=== PATIENT | female | born 1965 | race African-American/Black ===

== ENCOUNTER 2016-12-02 05:38 | Emergency (ER) | payer MEDICAID ==
[~2016-12-02 05:38] MED LIST: ADVA250A INH; ALBUAER3 INH; AMLO10TA2 PO; ARIP1TAB13 PO; ASPI-110 PO; BACTOIN EACH NARE; BUSP5TAB PO; CEPH-460 PO; CLIN1CAP6 PO; FLUT50SP EACH NARE; HYDR-3533 PO; HYDR-3535 PO; HYDR100C PO; HYDR50TA15 PO; IBUP-232 PO; LEVEMIR SQ; LOSA25TA PO; LOVA20TA PO; LYRI100C PO; METO100T PO; MONT10TA4 PO; NORT50CA PO; NOVOLOGP2 SQ; OMEP40CA2 PO; ONDA4TAB7 SL; ONETKIT9; PARO30TA2 PO; SENN8.6T25 PO; TIZA4TAB PO; VARE1 PO; WHEEMIS3
[2016-12-02 05:55] VITALS: PULSE 88; RESP 16; O2SAT 98
[2016-12-02] MEDS ORDERED: KETOROLAC TROMETHAMINE 30 MG/ML (IVP) VIAL IV PUSH ONE (06:00)
[2016-12-02] MEDS ORDERED: SODIUM CHLORIDE 0.9% FLUSH 5 ML FLUSH IVF PRN (06:00)
[2016-12-02] MEDS ORDERED: ASPIRIN 81 MG CHEW TAB PO ONE (06:00)
[2016-12-02] MEDS: RESP: ALBUTEROL 2.5 MG/IPRATROPIUM 0.5 MG NEB (SCH) INH (06:06)
[2016-12-02 06:08] LABS: AUTOMATED NEUTROPHIL # 4.6 TH/MM3 (1.8-7.7); BASOPHIL % 0.5 % (0.0-2.0); EOSINOPHIL # 0.1 TH/MM3 (0-0.4); EOSINOPHIL % 1.4 % (0.0-4.0); HEMATOCRIT 35.7 % (35.0-46.0); HEMO FLAGS DIFF FINAL; LYMPH % 37.8 % (9.0-44.0); LYMPHOCYTE # 3.2 TH/MM3 (1.0-4.8); MEAN CELL VOLUME 81.4 FL (80.0-100.0); MEAN CORPUSCULAR HEMOGLOBIN 27.9 PG (27.0-34.0); MEAN CORPUSCULAR HGB CONC 34.3 % (32.0-36.0); MONO % 5.9 % (0.0-8.0); NEUT % 54.4 % (16.0-70.0); PLATELET COUNT 279 TH/MM3 (150-450); RED BLOOD COUNT 4.39 MIL/MM3 (4.00-5.30); RED CELL DISTRIBUTION WIDTH 13.8 % (11.6-17.2); WHITE BLOOD COUNT 8.5 TH/MM3 (4.0-11.0)
[2016-12-02] MEDS ORDERED: ABIL15TA2 PO (06:15)
[2016-12-02] MEDS ORDERED: VIST50CA PO (06:15)
[2016-12-02] MEDS ORDERED: RANI150T PO (06:15)
--- NOTE | 2016-12-02 06:20 | PD ---
HPI Chief Complaint: Chest Pain Time Seen by Provider: 05:52 Travel History International Travel<30 days: No Contact w/Intl Traveler<30days: No Traveled to known affect area: No History of Present Illness HPI 50-year-old female with history of COPD/asthma, HTN, HLD, DM here with complaint of chest pain. Patient states that she's had approximately one week of cough, cold, chest congestion. Cough is primarily nonproductive. No fevers or chills. She complains of a sharp pain across the lower aspect of her rib cage bilaterally. This is made worse with cough, movement. Patient notes a history of previous ND and DVT, no history of previous PE. No recent travel, sick contacts. No pain or swelling in the legs. Patient has had several cardiac catheterizations per her report none of which have warranted PCI per her report. Patient has been using her albuterol inhaler with some improvement of her cough and chest congestion. PFSH Past Medical History Hx Anticoagulant Therapy: Yes Arthritis: Yes Asthma: Yes Autoimmune Disease: No Blood Disorders: No Anxiety: No Depression: Yes Heart Rhythm Problems: No Cancer: Yes (UTERINE) Cardiac Catheterization: Yes (X6) Cardiovascular Problems: Yes (CHF) High Cholesterol: Yes Chemotherapy: No Chest Pain: Yes Congestive Heart Failure: Yes COPD: Yes Cerebrovascular Accident: Yes (3 TIA) Coronary Artery Disease: Yes Diabetes: Yes Patient Takes Glucophage: No Diminished Hearing: No Endocrine: Yes Gastrointestinal Disorders: Yes (GASTRO PARESIS) GERD: Yes Genitourinary: No Headaches: No Hypertension: Yes Immune Disorder: No Implanted Vascular Access Dvce: No Musculoskeletal: Yes (chronic knee pain, chronic back pain) Neurologic: Yes (NEUROPATHY, CVA ) Psychiatric: Yes Reproductive: No Immunizations Current: Yes Migraines: No Myocardial Infarction: Yes Radiation Therapy: No Seizures: Yes (2000,2001,2002) Sickle Cell Disease: Yes (SICKLE CELL TRAIT) Sleep Apnea: Yes Thyroid Disease: No Ulcer: Yes (YEARS AGO) ?: Not Menopausal: Yes Past Surgical History Abdominal Surgery: Yes (GALL BLADDER) Cardiac Surgery: Yes Cholecystectomy: Yes Coronary Stent: Yes (X2) Ear Surgery: No Endocrine Surgery: No Eye Surgery: No Genitourinary Surgery: No Gynecologic Surgery: Yes Hysterectomy: Yes Joint Replacement: Yes (left knee UPCOMING) Neurologic Surgery: Yes (NECK FUSED) Oral Surgery: No Thoracic Surgery: No Other Surgery: Yes (LEFT AXILLARY TUMOR REMOVED) Social History Alcohol Use: No Tobacco Use: Yes (1/2 PPD) Substance Use: No Allergies-Medications (Allergen,Severity, Reaction): Coded Allergies: Cipro (Verified Allergy, Severe, SWELLING SOB, 12/02/16) Erythromycin (Verified Allergy, Severe, SWELLING SOB, 12/02/16) Tramadol (Verified Allergy, Severe, UNKNOWN, 12/02/16) Vancomycin (Verified Allergy, Severe, SWELLING AND SOB, 12/02/16) *MDRO Multi-Drug Resistant Organism (Verified Adverse Reaction, Unknown, ) 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 Onetouch Ultra 2 Glucose System (Device) 1 Kit Kit 1 Kit .ROUTE DIRECTED Wheelchair (Device) 1 Mis Mis 1 Ea .ROUTE DIRECTED Novolog Inj (Insulin Aspart) 1,000 Unit/10 Ml Vial 0-25 Units SQ ACHS Max dose at bedtime:( )units; sugars less than 70,(0) units; sugars 150-199,(5) units; sugars 200-249,(10) units; sugars 250-299,(15) units; sugars 300-349,(20)units; sugars greater than 349,(25)units Lyrica (Pregabalin) 100 Mg Cap 100 Mg PO TID Proair Hfa 8.5 GM Inh (Albuterol Sulfate) 90 Mcg/Act Aer 2 Puff INH Q4-6H PRN 108 mcg/actuation Paroxetine (Paroxetine HCl) 30 Mg Tab 30 Mg PO DAILY Ondansetron Odt 4 Mg Tab 4 Mg SL Q6HR PRN Fluticasone Nasal [place] 50 Mcg/Act Naspr 50 Mcg EACH NARE DAILY 50 mcg/spray Metoprolol Tartrate 100 Mg Tab 100 Mg PO BID Amlodipine (Amlodipine Besylate) 10 Mg Tab 10 Mg PO DAILY Lovastatin 20 Mg Tab 20 Mg PO HS Buspirone (Buspirone HCl) 5 Mg Tab 5 Mg PO DAILY Aspirin 81 (Aspirin) 81 Mg Tabdr 81 Mg PO EVERY OTHER DAY Hydralazine (Hydralazine HCl) 50 Mg Tab 50 Mg PO BID Take with a meal Advair Diskus Inh (Fluticasone-Salmeterol Inh) 250-50 Mcg/Blist Aer 1 Puff INH BID Rinse mouth after use. Reported Abilify (Aripiprazole) 15 Mg Tab 15 Mg PO DAILY Ranitidine (Ranitidine HCl) 150 Mg Tab 150 Mg PO BID Vistaril (Hydroxyzine Pamoate) 50 Mg Cap 50 Mg PO BID Lortab (Hydrocodone-Acetaminophen) 10-325 Mg Tab 1 Tab PO Q4-6H PRN Tizanidine (Tizanidine HCl) 4 Mg Tab 4 Mg PO QID Review of Systems Except as stated in HPI: all other systems reviewed are Neg Physical Exam Narrative GENERAL: Well-appearing female in no acute distress SKIN: Warm and dry. HEAD: Normocephalic. EYES: No scleral icterus. No injection or drainage. ENT: Mucous membranes pink and moist. NECK: Supple CARDIOVASCULAR: Regular rate and rhythm. No murmur appreciated. Reproducible tenderness to palpation of the lower chest wall bilaterally. RESPIRATORY: No accessory muscle use. Expiratory wheezing. GASTROINTESTINAL: Abdomen soft, non-tender, nondistended. MUSCULOSKELETAL: No obvious deformities. No edema. NEUROLOGICAL: Awake and alert. Normal speech. PSYCHIATRIC: Appropriate mood and affect; insight and judgment normal. Data Data Last Documented VS Vital Signs Date Time Temp Pulse Resp B/P Pulse Ox O2 Delivery O2 Flow Rate FiO2 12/02/16 05:55 88 16 98 Room Air Orders Electrocardiogram (12/02/16 05:52) Basic Metabolic Panel (Bmp) (12/02/16 05:52) Complete Blood Count With Diff (12/02/16 05:52) Troponin I (12/02/16 05:52) Chest, Single Ap (12/02/16 05:52) Ecg Monitoring (12/02/16 05:52) Iv Access Insert/Monitor (12/02/16 05:52) Oximetry (12/02/16 05:52) Aspirin Chew (Aspirin Chew) (12/02/16 06:00) Sodium Chloride 0.9% Flush (Ns Flush) (12/02/16 06:00) Albuterol-Ipratropium Neb (Duoneb Neb) (12/02/16 06:00) Ketorolac Inj (Toradol Inj) (12/02/16 06:00) Potassium Chloride (Kcl) (12/02/16 06:45) Labs Laboratory Tests Test 12/02/16 06:00 White Blood Count 8.5 TH/MM3 Red Blood Count 4.39 MIL/MM3 Hemoglobin 12.2 GM/DL Hematocrit 35.7 % Mean Corpuscular Volume 81.4 FL Mean Corpuscular Hemoglobin 27.9 PG Mean Corpuscular Hemoglobin 34.3 % Concent Red Cell Distribution Width 13.8 % Platelet Count 279 TH/MM3 Mean Platelet Volume 8.3 FL Neutrophils (%) (Auto) 54.4 % Lymphocytes (%) (Auto) 37.8 % Monocytes (%) (Auto) 5.9 % Eosinophils (%) (Auto) 1.4 % Basophils (%) (Auto) 0.5 % Neutrophils # (Auto) 4.6 TH/MM3 Lymphocytes # (Auto) 3.2 TH/MM3 Monocytes # (Auto) 0.5 TH/MM3 Eosinophils # (Auto) 0.1 TH/MM3 Basophils # (Auto) 0.0 TH/MM3 CBC Comment DIFF FINAL Differential Comment Sodium Level 140 MEQ/L Potassium Level 3.0 MEQ/L Chloride Level 104 MEQ/L Carbon Dioxide Level 29.4 MEQ/L Anion Gap 7 MEQ/L Blood Urea Nitrogen 10 MG/DL Creatinine 0.78 MG/DL Estimat Glomerular Filtration 94 ML/MIN Rate Random Glucose 156 MG/DL Calcium Level 8.5 MG/DL Troponin I LESS THAN 0.02 NG/ML MDM Medical Decision Making Medical Screen Exam Complete: Yes Emergency Medical Condition: Yes Medical Record Reviewed: Yes Differential Diagnosis 50-year-old female with history of COPD/asthma, HTN, HLD, DM, CAD with bilateral lower chest pain made worse with movement, deep inspiration with one week of cough, chest congestion, wheezing. Differential includes asthma exacerbation, COPD exacerbation, pneumonia, musculoskeletal, atypical chest pain , ACS, less likely PE. Narrative Course Patient placed on monitor, IV established and blood obtained. A twelve-lead EKG shows sinus rhythm without notable ST abnormalities, normal intervals. Patient given aspirin, Toradol, DuoNeb. Portable chest x-ray obtained that by my read shows no acute abnormalities. CBC, BMP, troponin notable for potassium 3.0. Patient was replaced with 60 mEq orally. Her symptoms most consistent with mild COPD/asthma exacerbation with concurrent musculoskeletal chest wall pain. Symptoms are atypical for ACS and I do not think she warrants serial enzymes, provocative testing. Patient felt improved after the above therapy and will be discharged home. Diagnosis Primary Impression: Musculoskeletal chest pain Additional Impressions: COPD exacerbation Hypokalemia Referrals: Primary Care Physician as needed Additional Instructions: Steroids as prescribed. Tylenol, ibuprofen as needed for pain. Follow-up with primary care provider if symptoms persist and return the ER for the warning signs discussed. Med/Other Pt SpecificInfo: Prescription(s) given Scripts Prednisone 50 Mg Tab50 Mg PO DAILY 5 Days Ref 0 Prov:Connie Sutton MD 12/02/16 Disposition: DISCHARGE HOME Condition: Stable Connie Sutton MD Dec 02, 2016 06:20
--- NOTE | 2016-12-02 06:30 | RADRPT ---
EXAM DATE/TIME: 12/02/2016 06:14 [facility] COMPARISON: CHEST SINGLE AP, September 05, 2016, 13:51. INDICATIONS : Congestion, wheezing, and shortness of breath x4 days. MEDICAL HISTORY : Asthma SURGICAL HISTORY : None. ENCOUNTER: Initial ACUITY: 4 - 6 days PAIN SCORE: 0/10 LOCATION: Bilateral chest FINDINGS: Portable AP view of the chest demonstrates a normal-sized cardiac silhouette. No effusion, consolidat ion, or pneumothorax is visualized. The bones and soft tissues demonstrate no acute abnormality. Cerv ical spine hardware is present. CONCLUSION: No acute cardiopulmonary abnormality is identified. Mukund Nichole MD on December 02, 2016 at 6:28 Board Certified Radiologist. This report was verified electronically.
[2016-12-02 06:36] LABS: ANION GAP 7 MEQ/L (5-15); BICARBONATE 29.4 MEQ/L (21.0-32.0); BLOOD UREA NITROGEN 10 MG/DL (7-18); CHLORIDE 104 MEQ/L (98-107); GLOMERULAR FILTRATION RATE 94 ML/MIN (>89); SODIUM (NA) 140 MEQ/L (136-145)
[2016-12-02] MEDS ORDERED: PRED50 PO (06:44)
[2016-12-02] MEDS ORDERED: POTASSIUM CHLORIDE 20 MEQ CONTROLLED RELEASE TAB PO ONE (06:45)
--- NOTE | 2016-12-02 12:51 | EKG ---
Date Performed: 12/02/2016 Time Performed: 05:48:50 PTAGE: 50 years EKG: Sinus rhythm POSSIBLE LEFT ATRIAL ENLARGEMENT POSSIBLE LEFT VENTRICULAR HYPERTROPHY NONSPECIFIC T-WAVE ABNORMALIT Y Since previous tracing, no significant change noted ABNORMAL ECG PREVIOUS TRACING : 09/05/2016 12.24 DOCTOR: [place] Interpretating Date/Time 12/02/2016 12:50:22
[2016-12-05] MEDS ORDERED: LOVA20TA PO (14:06)
[2016-12-17] MEDS ORDERED: METO100T PO (02:35)
[2016-12-25] MEDS ORDERED: HYDR50CA PO (12:47)
[2017-01-15] MEDS ORDERED: ASPI-110 PO (09:33)
[2017-01-15] MEDS ORDERED: ONETTES4 (09:36)
[2017-01-15] MEDS ORDERED: ONETMIS2 (09:36)
[2017-02-08] MEDS ORDERED: PARO30TA2 PO (10:34)
[2017-02-12] MEDS ORDERED: LEVEMIR SQ (09:20)
[2017-02-19] MEDS ORDERED: BUSP5TAB PO (16:24)
[2017-02-19] MEDS ORDERED: AMLO10TA2 PO (16:24)
[2017-02-19] MEDS ORDERED: ZOFR4TAB PO (16:24)
[2017-02-19] MEDS ORDERED: LEVEMIR SQ (16:24)
[2017-02-19] MEDS ORDERED: LOSA25TA PO (16:24)
[2017-02-19] MEDS ORDERED: TIOT1AER2 INH (16:24)
[2017-02-19] MEDS ORDERED: PARO30TA2 PO (16:24)
[2017-02-19] MEDS ORDERED: HYDR50TA15 PO (16:24)
[2017-02-19] MEDS ORDERED: HYDR-3583 PO (16:24)
[2017-02-25] MEDS ORDERED: INSU-170 (14:43)
[2017-02-25] MEDS ORDERED: IPRA17I INH (15:21)
[2017-03-05] MEDS ORDERED: FLUT50SP EACH NARE (13:17)
[2017-03-07] MEDS ORDERED: ALBU0.08 NEB (10:08)
[2017-03-21] MEDS ORDERED: LOSA50TA PO (14:25)
[2017-03-21] MEDS ORDERED: LEVEMIR SQ (14:25)
[2017-03-21] MEDS ORDERED: XARE20TA PO (14:25)
[2017-03-21] MEDS ORDERED: AMBI10TA PO (14:28)
[2017-03-29] MEDS ORDERED: ONDA1TAB17 PO (11:39)
[2017-03-29] MEDS ORDERED: PERI8.6T PO (11:39)
[2017-04-03] MEDS ORDERED: ALBUAER3 INH (13:31)
[2017-04-05] MEDS ORDERED: OMEP10CA PO (14:17)
[2017-04-05] MEDS ORDERED: LEVEMIR SQ (14:17)
[2017-04-05] MEDS ORDERED: AMBI10TA PO (14:17)
[2017-04-05] MEDS ORDERED: VARE1PAK3 PO (14:17)
[2017-04-05] MEDS ORDERED: NICO21DI2 T-DERMAL (14:17)
[2017-04-15] MEDS ORDERED: LEVEMIR SQ (16:26)
[2017-04-15] MEDS ORDERED: PANT40TA3 PO (16:30)
[2017-04-15] MEDS ORDERED: TRIA.1%T TOPICAL (16:44)
[2017-04-23] MEDS ORDERED: ADVA250A INH (21:16)
[2017-04-23] MEDS ORDERED: ALBU0.08 NEB (21:16)
[2017-04-24] MEDS ORDERED: ZOLP5TAB3 PO (21:02)
[2017-04-24] MEDS ORDERED: BLOOD GLUCOSE T1 TES (21:37)
[2017-04-24] MEDS ORDERED: BD L33MI ×2 (21:37→21:48)
[2017-04-24] MEDS ORDERED: LIDO2GEL11 TOPICAL (21:37)
[2017-04-24] MEDS ORDERED: OMEP20TA PO (21:37)
[2017-04-24] MEDS ORDERED: METO100T PO (21:37)
[2017-04-24] MEDS ORDERED: NOVOLOGP2 SQ (21:37)
[2017-04-24] MEDS ORDERED: BD I1MIS10 (21:37)
== END 2016-12-02 07:46 | disposition home or self-care (01) ==
LOC: NEPE 05:38
DX: R07.89 Other chest pain (principal); J44.1 Chronic obstructive pulmonary disease with (acute) exacerbation; J45.901 Unspecified asthma with (acute) exacerbation; E87.6 Hypokalemia; M19.90 Unspecified osteoarthritis, unspecified site; F32.9 Major depressive disorder, single episode, unspecified; I50.9 Heart failure, unspecified; E11.9 Type 2 diabetes mellitus without complications; I10 Essential (primary) hypertension; D57.3 Sickle-cell trait; F17.210 Nicotine dependence, cigarettes, uncomplicated; Z79.4 Long term (current) use of insulin; Z79.01 Long term (current) use of anticoagulants; Z86.73 Personal history of transient ischemic attack (TIA), and cerebral infarction without residual deficits
CPT/HCPCS: 71010; 80048; 84484; 85025; 93005; 94640; 94664; 96374; 99284; J1885

== ENCOUNTER 2017-01-22 09:00 | Emergency (ER) | payer MEDICAID ==
[~2017-01-22] VITALS: Ht 165.1 cm; Wt 85.0 kg
[~2017-01-22 09:00] MED LIST changes: +ABIL15TA2 PO; -ARIP1TAB13 PO; -BACTOIN EACH NARE; -CEPH-460 PO; -CLIN1CAP6 PO; -HYDR-3533 PO; -HYDR100C PO; +HYDR50CA PO; -IBUP-232 PO; -LOSA25TA PO; -MONT10TA4 PO; -NORT50CA PO; -OMEP40CA2 PO; +ONETMIS2; +ONETTES4; +PRED50 PO; +RANI150T PO; -SENN8.6T25 PO; -VARE1 PO
[2017-01-22 09:03] VITALS: BP 205/92; PULSE 94; RESP 16; TEMP 98.1; O2SAT 96
[2017-01-22 09:42] VITALS: BP 191/88; PULSE 87; RESP 16; O2SAT 93
[2017-01-22] MEDS ORDERED: HYDR50CA PO (09:59)
--- NOTE | 2017-01-22 10:09 | PD ---
HPI Chief Complaint: Respiratory Symptoms Time Seen by Provider: 09:58 Travel History International Travel<30 days: No Contact w/Intl Traveler<30days: No Traveled to known affect area: No History of Present Illness HPI Patient is a 51-year-old female with history of COPD/asthma, HTN, HLD, DM, CAD with previous PCI who last stress test was negative stress test approximately 6 months ago here with complaint of shortness of breath. Patient states that over the course the last 2 weeks she has had shortness of breath, primarily with exertion. Describes this as wheezing, tight within the chest. She was seen here and treated with prednisone for asthma/COPD exacerbation and states that her symptoms got worse for the 5 day she was on steroids, but her symptoms came back when she stopped the steroids. She has been using her home Advair, albuterol with some improvement of her symptoms. She has not had any chest pain. She has not had any swelling in the ankles. PFSH Past Medical History Hx Anticoagulant Therapy: Yes Arthritis: Yes Asthma: Yes Autoimmune Disease: No Blood Disorders: No Anxiety: No Depression: Yes Heart Rhythm Problems: No Cancer: Yes (UTERINE) Cardiac Catheterization: Yes (X6) Cardiovascular Problems: Yes High Cholesterol: Yes Chemotherapy: No Chest Pain: Yes Congestive Heart Failure: Yes COPD: Yes Cerebrovascular Accident: Yes Coronary Artery Disease: Yes Diabetes: Yes Patient Takes Glucophage: No Diminished Hearing: No Endocrine: Yes Gastrointestinal Disorders: Yes (GASTRO PARESIS) GERD: Yes Genitourinary: No Headaches: No Hypertension: Yes Immune Disorder: No Implanted Vascular Access Dvce: No Musculoskeletal: Yes (chronic knee pain, chronic back pain) Neurologic: Yes (NEUROPATHY, CVA ) Psychiatric: Yes Reproductive: No Respiratory: Yes (copd) Immunizations Current: Yes Migraines: No Myocardial Infarction: Yes Radiation Therapy: No Seizures: Yes (2000,2001,2002) Sickle Cell Disease: Yes (SICKLE CELL TRAIT) Sleep Apnea: Yes Thyroid Disease: No Ulcer: Yes (YEARS AGO) Influenza Vaccination: Yes ?: Not Menopausal: Yes Past Surgical History Abdominal Surgery: Yes (GALL BLADDER) Cardiac Surgery: Yes Cholecystectomy: Yes Coronary Stent: Yes (X2) Ear Surgery: No Endocrine Surgery: No Eye Surgery: No Genitourinary Surgery: No Gynecologic Surgery: Yes Hysterectomy: Yes Joint Replacement: Yes (left knee UPCOMING) Neurologic Surgery: Yes (NECK FUSED) Oral Surgery: No Thoracic Surgery: No Other Surgery: Yes (LEFT AXILLARY TUMOR REMOVED) Social History Alcohol Use: No Tobacco Use: Yes (1 PPD) Substance Use: No Allergies-Medications (Allergen,Severity, Reaction): Coded Allergies: Cipro (Verified Allergy, Severe, SWELLING SOB, 01/22/17) Erythromycin (Verified Allergy, Severe, SWELLING SOB, 01/22/17) Tramadol (Verified Allergy, Severe, UNKNOWN, 01/22/17) Vancomycin (Verified Allergy, Severe, SWELLING AND SOB, 01/22/17) *MDRO Multi-Drug Resistant Organism (Verified Adverse Reaction, Unknown, ) 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 Onetouch Ultra 2 Glucose System (Device) 1 Kit Kit 1 Kit .ROUTE DIRECTED Wheelchair (Device) 1 Mis Mis 1 Ea .ROUTE DIRECTED Novolog Inj (Insulin Aspart) 1,000 Unit/10 Ml Vial 0-25 Units SQ ACHS Max dose at bedtime:( )units; sugars less than 70,(0) units; sugars 150-199,(5) units; sugars 200-249,(10) units; sugars 250-299,(15) units; sugars 300-349,(20)units; sugars greater than 349,(25)units Lyrica (Pregabalin) 100 Mg Cap 100 Mg PO TID Proair Hfa 8.5 GM Inh (Albuterol Sulfate) 90 Mcg/Act Aer 2 Puff INH Q4-6H PRN 108 mcg/actuation Paroxetine (Paroxetine HCl) 30 Mg Tab 30 Mg PO DAILY Ondansetron Odt 4 Mg Tab 4 Mg SL Q6HR PRN Fluticasone Nasal [place] 50 Mcg/Act Naspr 50 Mcg EACH NARE DAILY 50 mcg/spray Amlodipine (Amlodipine Besylate) 10 Mg Tab 10 Mg PO DAILY Buspirone (Buspirone HCl) 5 Mg Tab 5 Mg PO DAILY Hydralazine (Hydralazine HCl) 50 Mg Tab 50 Mg PO BID Take with a meal Advair Diskus Inh (Fluticasone-Salmeterol Inh) 250-50 Mcg/Blist Aer 1 Puff INH BID Rinse mouth after use. Reported Hydroxyzine Pamoate 50 Mg Cap 50 Mg PO BID PRN Abilify (Aripiprazole) 15 Mg Tab 15 Mg PO DAILY Ranitidine (Ranitidine HCl) 150 Mg Tab 150 Mg PO BID Lortab (Hydrocodone-Acetaminophen) 10-325 Mg Tab 1 Tab PO Q4-6H PRN Tizanidine (Tizanidine HCl) 4 Mg Tab 4 Mg PO QID Review of Systems Except as stated in HPI: all other systems reviewed are Neg Physical Exam Narrative GENERAL: female in no acute distress SKIN: Focused skin assessment warm/dry. HEAD: Normocephalic. EYES: No scleral icterus. No injection or drainage. ENT: Mucous membranes pink and moist. NECK: Supple CARDIOVASCULAR: Regular rate and rhythm. No murmur appreciated. No reproducible tenderness to palpation of chest wall RESPIRATORY: No accessory muscle use. Minimal and expiratory wheezing GASTROINTESTINAL: Abdomen soft, non-tender, nondistended. MUSCULOSKELETAL: No obvious deformities. No edema. NEUROLOGICAL: Awake and alert. Normal speech. PSYCHIATRIC: Appropriate mood and affect; insight and judgment normal. Data Data Last Documented VS Vital Signs Date Time Temp Pulse Resp B/P Pulse Ox O2 Delivery O2 Flow Rate FiO2 01/22/17 09:42 87 16 191/88 93 Room Air 01/22/17 09:03 98.1 Orders Electrocardiogram (01/22/17 ) Complete Blood Count With Diff (01/22/17 10:02) Basic Metabolic Panel (Bmp) (01/22/17 10:02) B-Type Natriuretic Peptide (01/22/17 10:02) Troponin I (01/22/17 10:02) Iv Access Insert/Monitor (01/22/17 10:02) Oximetry (01/22/17 10:02) Chest, Single Ap (01/22/17 10:02) Sodium Chloride 0.9% Flush (Ns Flush) (01/22/17 10:15) Albuterol-Ipratropium Neb (Duoneb Neb) (01/22/17 10:15) Labs Laboratory Tests Test 01/22/17 10:18 White Blood Count 8.3 TH/MM3 Red Blood Count 4.46 MIL/MM3 Hemoglobin 11.9 GM/DL Hematocrit 36.9 % Mean Corpuscular Volume 82.9 FL Mean Corpuscular Hemoglobin 26.7 PG Mean Corpuscular Hemoglobin 32.2 % Concent Red Cell Distribution Width 14.2 % Platelet Count 282 TH/MM3 Mean Platelet Volume 8.3 FL Neutrophils (%) (Auto) 53.5 % Lymphocytes (%) (Auto) 40.4 % Monocytes (%) (Auto) 3.7 % Eosinophils (%) (Auto) 1.9 % Basophils (%) (Auto) 0.5 % Neutrophils # (Auto) 4.4 TH/MM3 Lymphocytes # (Auto) 3.3 TH/MM3 Monocytes # (Auto) 0.3 TH/MM3 Eosinophils # (Auto) 0.2 TH/MM3 Basophils # (Auto) 0.0 TH/MM3 CBC Comment DIFF FINAL Differential Comment Sodium Level 139 MEQ/L Potassium Level 4.0 MEQ/L Chloride Level 105 MEQ/L Carbon Dioxide Level 27.5 MEQ/L Anion Gap 7 MEQ/L Blood Urea Nitrogen 15 MG/DL Creatinine 0.82 MG/DL Estimat Glomerular Filtration 88 ML/MIN Rate Random Glucose 270 MG/DL Calcium Level 8.9 MG/DL Troponin I LESS THAN 0.02 NG/ML B-Type Natriuretic Peptide 221 PG/ML MDM Medical Decision Making Medical Screen Exam Complete: Yes Emergency Medical Condition: Yes Medical Record Reviewed: Yes Differential Diagnosis 51-year-old female with history of COPD/asthma, HTN, HLD, DM, CAD with previous PCI who last stress test was negative stress test approximately 6 months ago here with complaint of shortness of breath. Differential includes COPD/asthma exacerbation, pneumonia, new onset heart failure, ACS, arrhythmia, symptomatic anemia. Narrative Course Patient placed on monitor, IV established and blood obtained. A twelve-lead EKG shows sinus rhythm without notable ST abnormalities, normal intervals. Patient was given DuoNeb 2. Portable chest x-ray obtained that by my read shows no acute abnormalities. CBC, BMP, BNP, troponin obtained and unremarkable. Patient felt improved after nebulizer therapy. My suspicion is that this is more pulmonary, and less likely cardiac. Additionally she's had a negative stress approximately 6 months ago. Will be discharged home with outpatient primary follow-up. Diagnosis Primary Impression: Shortness of breath Additional Impressions: Asthma Qualified Code: J45.909 - Uncomplicated asthma, unspecified asthma severity COPD (chronic obstructive pulmonary disease) Qualified Code: J44.9 - Chronic obstructive pulmonary disease, unspecified COPD type Referrals: Primary Care Physician 2 days Patient Instructions: Dyspnea (ED), General Instructions Additional Instructions: Albuterol nebulizer as needed for shortness of breath. Follow-up with primary care physician as discussed. Med/Other Pt SpecificInfo: Prescription(s) given Scripts Nebulizer 1 Mis Mis #1 EA .ROUTE DIRECTED Ref 0 Use with albuterol every 4 hours as needed for shortness of breath, wheezing. Prov:Connie Sutton MD 01/22/17 Albuterol Neb 2.5 Mg/3 Ml Neb2.5 Mg NEB Q4HR NEB #60 NEBULE Ref 0 While awake Prov:Connie Sutton MD 01/22/17 Disposition: 01 DISCHARGE HOME Condition: Stable Connie Sutton MD Jan 22, 2017 10:09
[2017-01-22] MEDS: RESP: ALBUTEROL 2.5 MG/IPRATROPIUM 0.5 MG NEB (SCH) INH ×2 (10:14→10:15)
[2017-01-22] MEDS ORDERED: SODIUM CHLORIDE 0.9% FLUSH 10 ML FLUSH IVF PRN (10:15)
--- NOTE | 2017-01-22 10:28 | RADRPT ---
EXAM DATE/TIME: 01/22/2017 10:12 [facility] COMPARISON: CHEST SINGLE AP, December 02, 2016, 6:14. INDICATIONS : Short of breath. MEDICAL HISTORY : None. Asthma. SURGICAL HISTORY : None. ENCOUNTER: Initial ACUITY: 1 day PAIN SCORE: 0/10 LOCATION: Bilateral chest FINDINGS: Single AP view of the chest. Minimal linear opacity at the lung bases. The lungs are otherwise clear. Cardiomediastinal silhouette within normal limits. No evidence of pleural effusion or pneumothorax. CONCLUSION: Minimal bilateral lower lung zone opacity likely representing atelectasis. Servando Gr MD on January 22, 2017 at 10:25 Board Certified Radiologist. This report was verified electronically.
[2017-01-22 10:40] LABS: AUTOMATED NEUTROPHIL # 4.4 TH/MM3 (1.8-7.7); BASOPHIL % 0.5 % (0.0-2.0); EOSINOPHIL # 0.2 TH/MM3 (0-0.4); EOSINOPHIL % 1.9 % (0.0-4.0); HEMATOCRIT 36.9 % (35.0-46.0); HEMO FLAGS DIFF FINAL; LYMPH % 40.4 % (9.0-44.0); LYMPHOCYTE # 3.3 TH/MM3 (1.0-4.8); MEAN CELL VOLUME 82.9 FL (80.0-100.0); MEAN CORPUSCULAR HEMOGLOBIN 26.7 PG (27.0-34.0); MEAN CORPUSCULAR HGB CONC 32.2 % (32.0-36.0); MONO % 3.7 % (0.0-8.0); NEUT % 53.5 % (16.0-70.0); PLATELET COUNT 282 TH/MM3 (150-450); RED BLOOD COUNT 4.46 MIL/MM3 (4.00-5.30); RED CELL DISTRIBUTION WIDTH 14.2 % (11.6-17.2); WHITE BLOOD COUNT 8.3 TH/MM3 (4.0-11.0)
[2017-01-22 10:51] LABS: ANION GAP 7 MEQ/L (5-15); BICARBONATE 27.5 MEQ/L (21.0-32.0); BLOOD UREA NITROGEN 15 MG/DL (7-18); CHLORIDE 105 MEQ/L (98-107); GLOMERULAR FILTRATION RATE 88 ML/MIN (>89); SODIUM (NA) 139 MEQ/L (136-145)
[2017-01-22] MEDS ORDERED: ALBU0.08 NEB (11:27)
[2017-01-22] MEDS ORDERED: NEBULIZER1 MI1 (11:27)
--- NOTE | 2017-01-22 22:43 | EKG ---
Date Performed: 01/22/2017 Time Performed: 09:53:34 PTAGE: 51 years EKG: Sinus rhythm POSSIBLE LEFT ATRIAL ENLARGEMENT NONSPECIFIC T-WAVE ABNORMALITY BORDERLINE ECG PREVIOUS TRACING : 12/02/2016 05.48 Compared to prior tracing no significant change DOCTOR: Chloe Gale Interpretating Date/Time 01/22/2017 22:42:23
[2017-02-08] MEDS ORDERED: PARO30TA2 PO (10:34)
[2017-02-12] MEDS ORDERED: LEVEMIR SQ (09:20)
[2017-02-19] MEDS ORDERED: HYDR-3583 PO (16:24)
[2017-02-19] MEDS ORDERED: TIOT1AER2 INH (16:24)
[2017-02-19] MEDS ORDERED: AMLO10TA2 PO (16:24)
[2017-02-19] MEDS ORDERED: HYDR50TA15 PO (16:24)
[2017-02-19] MEDS ORDERED: LOSA25TA PO (16:24)
[2017-02-19] MEDS ORDERED: LEVEMIR SQ (16:24)
[2017-02-19] MEDS ORDERED: PARO30TA2 PO (16:24)
[2017-02-19] MEDS ORDERED: BUSP5TAB PO (16:24)
[2017-02-19] MEDS ORDERED: ZOFR4TAB PO (16:24)
[2017-02-25] MEDS ORDERED: INSU-170 (14:43)
[2017-02-25] MEDS ORDERED: IPRA17I INH (15:21)
[2017-03-05] MEDS ORDERED: FLUT50SP EACH NARE (13:17)
[2017-03-07] MEDS ORDERED: ALBU0.08 NEB (10:08)
[2017-03-21] MEDS ORDERED: XARE20TA PO (14:25)
[2017-03-21] MEDS ORDERED: LEVEMIR SQ (14:25)
[2017-03-21] MEDS ORDERED: LOSA50TA PO (14:25)
[2017-03-21] MEDS ORDERED: AMBI10TA PO (14:28)
[2017-03-29] MEDS ORDERED: ONDA1TAB17 PO (11:39)
[2017-03-29] MEDS ORDERED: PERI8.6T PO (11:39)
[2017-04-03] MEDS ORDERED: ALBUAER3 INH (13:31)
[2017-04-05] MEDS ORDERED: AMBI10TA PO (14:17)
[2017-04-05] MEDS ORDERED: OMEP10CA PO (14:17)
[2017-04-05] MEDS ORDERED: LEVEMIR SQ (14:17)
[2017-04-05] MEDS ORDERED: NICO21DI2 T-DERMAL (14:17)
[2017-04-05] MEDS ORDERED: VARE1PAK3 PO (14:17)
[2017-04-15] MEDS ORDERED: LEVEMIR SQ (16:26)
[2017-04-15] MEDS ORDERED: PANT40TA3 PO (16:30)
[2017-04-15] MEDS ORDERED: TRIA.1%T TOPICAL (16:44)
[2017-04-23] MEDS ORDERED: ADVA250A INH (21:16)
[2017-04-23] MEDS ORDERED: ALBU0.08 NEB (21:16)
[2017-04-24] MEDS ORDERED: ZOLP5TAB3 PO (21:02)
[2017-04-24] MEDS ORDERED: BD L33MI ×2 (21:37→21:48)
[2017-04-24] MEDS ORDERED: LIDO2GEL11 TOPICAL (21:37)
[2017-04-24] MEDS ORDERED: BD I1MIS10 (21:37)
[2017-04-24] MEDS ORDERED: BLOOD GLUCOSE T1 TES (21:37)
[2017-04-24] MEDS ORDERED: METO100T PO (21:37)
[2017-04-24] MEDS ORDERED: NOVOLOGP2 SQ (21:37)
[2017-04-24] MEDS ORDERED: OMEP20TA PO (21:37)
== END 2017-01-22 13:23 | disposition home or self-care (01) ==
LOC: NEPB 09:00
DX: R06.02 Shortness of breath (principal); J45.909 Unspecified asthma, uncomplicated; J44.9 Chronic obstructive pulmonary disease, unspecified; R94.31 Abnormal electrocardiogram [ECG] [EKG]; I50.9 Heart failure, unspecified; E11.9 Type 2 diabetes mellitus without complications; I10 Essential (primary) hypertension; F17.210 Nicotine dependence, cigarettes, uncomplicated; Z79.01 Long term (current) use of anticoagulants
CPT/HCPCS: 71010; 80048; 83880; 84484; 85025; 93005; 94640; 94664

== ENCOUNTER 2017-02-05 02:36 | Emergency (ER) | payer MEDICAID ==
[~2017-02-05 02:36] MED LIST changes: +ALBU0.08 NEB; +NEBULIZER1 MI1
[2017-02-05 02:49] VITALS: BP 219/100; PULSE 105; RESP 28; TEMP 98.7; O2SAT 94
[2017-02-05] MEDS ORDERED: SODIUM CHLORIDE 0.9% FLUSH 10 ML FLUSH IVF PRN (04:30)
[2017-02-05] MEDS ORDERED: RESP: ALBUTEROL 2.5 MG/IPRATROPIUM 0.5 MG NEB (SCH) INH ONE (04:30)
[2017-02-05] MEDS ORDERED: methylPREDNISolone SOD SUCC 125 MG/2 ML VIAL IVP ONE (04:30)
[2017-02-05 04:45] LABS: BASOPHIL # 0.1 TH/MM3 (0-0.2); BASOPHIL % 0.8 % (0.0-2.0); EOSINOPHIL # 0.1 TH/MM3 (0-0.4); EOSINOPHIL % 0.5 % (0.0-4.0); HEMATOCRIT 36.6 % (35.0-46.0); HEMO FLAGS DIFF FINAL; LYMPHOCYTE # 2.8 TH/MM3 (1.0-4.8); MEAN CELL VOLUME 82.1 FL (80.0-100.0); MEAN CORPUSCULAR HEMOGLOBIN 27.3 PG (27.0-34.0); MEAN CORPUSCULAR HGB CONC 33.3 % (32.0-36.0); MONO % 3.3 % (0.0-8.0); NEUT % 68.4 % (16.0-70.0); PLATELET COUNT 299 TH/MM3 (150-450); RED BLOOD COUNT 4.45 MIL/MM3 (4.00-5.30); RED CELL DISTRIBUTION WIDTH 13.9 % (11.6-17.2); WHITE BLOOD COUNT 10.2 TH/MM3 (4.0-11.0)
[2017-02-05] MEDS: RESP: ALBUTEROL 2.5 MG/3 ML NEB (SCH) INH (04:51)
[2017-02-05 05:09] LABS: ANION GAP 8 MEQ/L (5-15); AST (GOT) 13 U/L (15-37); BICARBONATE 30.3 MEQ/L (21.0-32.0); BLOOD UREA NITROGEN 13 MG/DL (7-18); CHLORIDE 101 MEQ/L (98-107); GLOMERULAR FILTRATION RATE 84 ML/MIN (>89); POTASSIUM 3.5 MEQ/L (3.5-5.1); SODIUM (NA) 139 MEQ/L (136-145)
[2017-02-05 05:17] LABS: ALKALINE PHOSPHATASE 140 U/L (45-117); ALT (GPT) 18 U/L (10-53); CREATINE KINASE 348 U/L (26-192); TOTAL BILIRUBIN ADULT 0.3 MG/DL (0.2-1.0)
--- NOTE | 2017-02-05 05:27 | PD ---
HPI Chief Complaint: Respiratory Distress Time Seen by Provider: 04:28 Travel History International Travel<30 days: No Contact w/Intl Traveler<30days: No Traveled to known affect area: No History of Present Illness HPI This is a 51-year-old female with a history of CVA, diabetes mellitus, hypertension, COPD, who presents to quite a shortness of breath with cough. Patient reports nonproductive cough. She reports wheezing. She denies chest pain, chest pressure. She denies any other symptoms at this time. PFSH Past Medical History Hx Anticoagulant Therapy: Yes Arthritis: Yes Asthma: Yes Autoimmune Disease: No Blood Disorders: No Anxiety: No Depression: Yes Heart Rhythm Problems: No Cancer: Yes (UTERINE) Cardiac Catheterization: Yes (X6) Cardiovascular Problems: Yes ([place], STENTS X 3) High Cholesterol: Yes Chemotherapy: No Chest Pain: Yes Congestive Heart Failure: Yes COPD: Yes Cerebrovascular Accident: Yes (X3) Coronary Artery Disease: Yes Diabetes: Yes Patient Takes Glucophage: No Diminished Hearing: No Endocrine: Yes Gastrointestinal Disorders: Yes (GASTRO PARESIS) GERD: Yes Genitourinary: No Headaches: No Hypertension: Yes Immune Disorder: No Implanted Vascular Access Dvce: No Musculoskeletal: Yes (chronic knee pain, chronic back pain) Neurologic: Yes (NEUROPATHY, CVA ) Psychiatric: Yes Reproductive: No Respiratory: Yes (COPD) Immunizations Current: Yes Migraines: No Myocardial Infarction: Yes Radiation Therapy: No Seizures: Yes (2000,2001,2002) Sickle Cell Disease: Yes (SICKLE CELL TRAIT) Sleep Apnea: Yes Thyroid Disease: No Ulcer: Yes (YEARS AGO) ?: Not Menopausal: Yes Past Surgical History Abdominal Surgery: Yes (GALL BLADDER) Cardiac Surgery: Yes Cholecystectomy: Yes Coronary Stent: Yes (X2) Ear Surgery: No Endocrine Surgery: No Eye Surgery: No Genitourinary Surgery: No Gynecologic Surgery: Yes Hysterectomy: Yes Joint Replacement: Yes (left knee UPCOMING) Neurologic Surgery: Yes (NECK FUSED) Oral Surgery: No Thoracic Surgery: No Other Surgery: Yes (LEFT AXILLARY TUMOR REMOVED) Social History Alcohol Use: No Tobacco Use: Yes (1 PPD) Substance Use: No Allergies-Medications (Allergen,Severity, Reaction): Coded Allergies: Cipro (Verified Allergy, Severe, SWELLING SOB, 02/05/17) Erythromycin (Verified Allergy, Severe, SWELLING SOB, 02/05/17) Tramadol (Verified Allergy, Severe, UNKNOWN, 02/05/17) Vancomycin (Verified Allergy, Severe, SWELLING AND SOB, 02/05/17) *MDRO Multi-Drug Resistant Organism (Verified Adverse Reaction, Unknown, ) 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 Albuterol Neb (Albuterol Sulfate) 2.5 Mg/3 Ml Neb 2.5 Mg NEB Q4HR NEB While awake Onetouch Lancets 1 Mis Mis 1 Box .ROUTE DIRECTED Onetouch Ultra Test Strips (Blood Glucose Test Strips) 1 Rosina Rosina 1 Strip .ROUTE DIRECTED Aspirin 81 (Aspirin) 81 Mg Tabdr 81 Mg PO EVERY OTHER DAY Metoprolol Tartrate 100 Mg Tab 100 Mg PO BID Lovastatin 20 Mg Tab 20 Mg PO HS Prednisone 50 Mg Tab 50 Mg PO DAILY 5 Days Levemir Inj (Insulin Detemir) 1,000 unit/ 10 ML Vial 45 Units SQ BID Do not mix with any other Insulin. Onetouch Ultra 2 Glucose System (Device) 1 Kit Kit 1 Kit .ROUTE DIRECTED Wheelchair (Device) 1 Mis Mis 1 Ea .ROUTE DIRECTED Novolog Inj (Insulin Aspart) 1,000 Unit/10 Ml Vial 0-25 Units SQ ACHS Max dose at bedtime:( )units; sugars less than 70,(0) units; sugars 150-199,(5) units; sugars 200-249,(10) units; sugars 250-299,(15) units; sugars 300-349,(20)units; sugars greater than 349,(25)units Lyrica (Pregabalin) 100 Mg Cap 100 Mg PO TID Proair Hfa 8.5 GM Inh (Albuterol Sulfate) 90 Mcg/Act Aer 2 Puff INH Q4-6H PRN 108 mcg/actuation Paroxetine (Paroxetine HCl) 30 Mg Tab 30 Mg PO DAILY Ondansetron Odt 4 Mg Tab 4 Mg SL Q6HR PRN Fluticasone Nasal [place] 50 Mcg/Act Naspr 50 Mcg EACH NARE DAILY 50 mcg/spray Amlodipine (Amlodipine Besylate) 10 Mg Tab 10 Mg PO DAILY Buspirone (Buspirone HCl) 5 Mg Tab 5 Mg PO DAILY Hydralazine (Hydralazine HCl) 50 Mg Tab 50 Mg PO BID Take with a meal Advair Diskus Inh (Fluticasone-Salmeterol Inh) 250-50 Mcg/Blist Aer 1 Puff INH BID Rinse mouth after use. Reported Hydroxyzine Pamoate 50 Mg Cap 50 Mg PO BID PRN Abilify (Aripiprazole) 15 Mg Tab 15 Mg PO DAILY Ranitidine (Ranitidine HCl) 150 Mg Tab 150 Mg PO BID Lortab (Hydrocodone-Acetaminophen) 10-325 Mg Tab 1 Tab PO Q4-6H PRN Tizanidine (Tizanidine HCl) 4 Mg Tab 4 Mg PO QID Review of Systems Except as stated in HPI: all other systems reviewed are Neg HENT: No: Headaches, Sore Throat Cardiovascular: No: Chest Pain or Discomfort, Palpitations Respiratory: Positive: Cough, Shortness of Breath, Wheezing Gastrointestinal: No: Nausea, Vomiting Musculoskeletal: No: Myalgias, Weakness Neurologic: Positive: Headache, Change in Mentation Physical Exam Narrative GENERAL: Well-nourished, well-developed patient, in mild respiratory discomfort. SKIN: Focused skin assessment warm/dry. HEAD: Normocephalic/atraumatic. EYES: No scleral icterus. No injection or drainage. NECK: Supple, trachea midline. CARDIOVASCULAR: Regular rate and rhythm without murmurs, gallops, or rubs. RESPIRATORY: Bilateral expiratory wheezes. No Rales or rhonchi appreciated. Slight diminished breath sounds bilaterally in the lower lung nunes. GASTROINTESTINAL: Abdomen soft, non-tender, nondistended. MUSCULOSKELETAL: No cyanosis, or edema. NEUROLOGICAL: Awake and alert. Cranial nerves II through XII intact. Normal speech. Data Data Last Documented VS Vital Signs Date Time Temp Pulse Resp B/P Pulse Ox O2 Delivery O2 Flow Rate FiO2 02/05/17 06:48 70 18 211/95 96 Room Air 02/05/17 06:47 2 02/05/17 02:49 98.7 Orders Complete Blood Count With Diff (02/05/17 04:28) Comprehensive Metabolic Panel (02/05/17 04:28) Ckmb (Isoenzyme) Profile (02/05/17 04:28) Troponin I (02/05/17 04:28) Iv Access Insert/Monitor (02/05/17 04:28) Ecg Monitoring (02/05/17 04:28) Oximetry (02/05/17 04:28) Oxygen Administration (02/05/17 04:28) Sodium Chloride 0.9% Flush (Ns Flush) (02/05/17 04:30) Methylprednisolone So Succ Inj (Solumedr (02/05/17 04:30) Albuterol-Ipratropium Neb (Duoneb Neb) (02/05/17 04:30) Albuterol Neb (Albuterol Neb) (02/05/17 04:30) CKMB (02/05/17 04:30) CKMB% (02/05/17 04:30) Chest, Single Ap (02/05/17 05:55) Acetamin-Hydrocod 325-5 Mg ([place] 5-325 (02/05/17 06:45) Hydralazine (Apresoline) (02/05/17 07:00) Amlodipine (Norvasc) (02/05/17 07:00) Labs Laboratory Tests Test 02/05/17 04:30 White Blood Count 10.2 TH/MM3 Red Blood Count 4.45 MIL/MM3 Hemoglobin 12.2 GM/DL Hematocrit 36.6 % Mean Corpuscular Volume 82.1 FL Mean Corpuscular Hemoglobin 27.3 PG Mean Corpuscular Hemoglobin 33.3 % Concent Red Cell Distribution Width 13.9 % Platelet Count 299 TH/MM3 Mean Platelet Volume 8.8 FL Neutrophils (%) (Auto) 68.4 % Lymphocytes (%) (Auto) 27.0 % Monocytes (%) (Auto) 3.3 % Eosinophils (%) (Auto) 0.5 % Basophils (%) (Auto) 0.8 % Neutrophils # (Auto) 7.0 TH/MM3 Lymphocytes # (Auto) 2.8 TH/MM3 Monocytes # (Auto) 0.3 TH/MM3 Eosinophils # (Auto) 0.1 TH/MM3 Basophils # (Auto) 0.1 TH/MM3 CBC Comment DIFF FINAL Differential Comment Sodium Level 139 MEQ/L Potassium Level 3.5 MEQ/L Chloride Level 101 MEQ/L Carbon Dioxide Level 30.3 MEQ/L Anion Gap 8 MEQ/L Blood Urea Nitrogen 13 MG/DL Creatinine 0.86 MG/DL Estimat Glomerular Filtration 84 ML/MIN Rate Random Glucose 279 MG/DL Calcium Level 9.1 MG/DL Total Bilirubin 0.3 MG/DL Aspartate Amino Transf 13 U/L (AST/SGOT) Alanine Aminotransferase 18 U/L (ALT/SGPT) Alkaline Phosphatase 140 U/L Total Creatine Kinase 348 U/L Creatine Kinase MB 1.8 NG/ML Creatine Kinase MB % 0.5 % Troponin I LESS THAN 0.02 NG/ML Total Protein 7.7 GM/DL Albumin 3.1 GM/DL MDM Medical Decision Making Medical Screen Exam Complete: Yes Emergency Medical Condition: Yes Differential Diagnosis COPD versus pneumonia versus ACS Narrative Course 51-year-old female history of COPD, presents today with shortness of breath and wheezing. She also reports nonproductive cough. The patient was given 125 mg of Solu-Medrol. She was given 3 nebulizer treatments of albuterol with the first with Atrovent. She's been observed here in the emergency department for several hours and on reexamination at 645, her lungs are completely clear without wheezes Rales or rhonchi. She is requesting a Lortab which she takes for her pain at times. She'll be discharged. We'll hold off on putting her on Medrol as she has had 125 and has diabetes and I do not want to increase her sugars further. She is instructed to follow up with her primary care physician. She has been warned that her blood sugars may be elevated secondary to the single dose of Solu-Medrol. Blood pressure at time of discharge was noted to be 211/90. She was given a dose of 50 g of hydralazine and 10 mg of amlodipine which she takes normally. She is currently not having chest pain or chest pressure she does have a mild headache. We'll evaluate the patient and make sure that her blood pressure comes down to a normal range. When it does, she will be safe for discharge. Diagnosis Primary Impression: COPD exacerbation Additional Impressions: History of chronic pain HTN (hypertension) Disposition: DISCHARGE HOME Condition: Stable Alhaji Osei MD Feb 05, 2017 05:27
[2017-02-05 05:29] LABS: CKMB 1.8 NG/ML (0.5-3.6)
[2017-02-05] MEDS ORDERED: ACETAMINOPHEN/HYDROcodone 325 MG/5 MG TAB PO ONE (06:45)
[2017-02-05 06:48] VITALS: BP 211/95; PULSE 70; RESP 18; O2SAT 96
[2017-02-05] MEDS ORDERED: hydrALAZINE HCL 50 MG TAB PO ONE (07:00)
--- NOTE | 2017-02-05 07:06 | RADRPT ---
EXAM DATE/TIME: 02/05/2017 06:16 [facility] COMPARISON: CHEST SINGLE AP, January 22, 2017, 10:12. INDICATIONS : Shortness of breath. MEDICAL HISTORY : Asthma. SURGICAL HISTORY : None. ENCOUNTER: Initial ACUITY: 1 day PAIN SCORE: 0/10 LOCATION: Bilateral chest FINDINGS: The lungs are clear without infiltrate, nodule, or mass. There is no appreciable pleural effusion fo r technique. Heart and mediastinum are unremarkable. CONCLUSION: No acute cardiopulmonary disease. Colin Molina MD on February 05, 2017 at 7:05 Board Certified Radiologist. This report was verified electronically.
[2017-02-05 07:08] VITALS: BP 204/95; PULSE 100; RESP 19; O2SAT 95
[2017-02-05 07:37] VITALS: BP 198/93; PULSE 99; RESP 19; O2SAT 100
[2017-02-05 08:05] VITALS: BP 183/93; TEMP 98.1
[2017-02-05 08:16] VITALS: RESP 19
--- NOTE | 2017-02-05 11:34 | EKG ---
Date Performed: 02/05/2017 Time Performed: 02:45:02 PTAGE: 51 years EKG: SINUS TACHYCARDIA POSSIBLE LEFT ATRIAL ENLARGEMENT NONSPECIFIC T-WAVE ABNORMALITY ABNORMAL RHYTHM ECG NO PREVIOUS TRACING DOCTOR: Hoang Finch Interpretating Date/Time 02/05/2017 11:32:44
--- NOTE | 2017-02-05 12:27 | EKG ---
Date Performed: 02/05/2017 Time Performed: 07:26:44 PTAGE: 51 years EKG: Sinus rhythm POSSIBLE LEFT ATRIAL ENLARGEMENT POSSIBLE LEFT VENTRICULAR HYPERTROPHY NONSPECIFIC T-WAVE ABNORMALIT Y ABNORMAL ECG INTERPRETATION BASED ON A DEFAULT AGE OF 38 YEARS NO PREVIOUS TRACING DOCTOR: Hoang Finch Interpretating Date/Time 02/05/2017 12:25:13
[2017-02-08] MEDS ORDERED: PARO30TA2 PO (10:34)
[2017-02-12] MEDS ORDERED: LEVEMIR SQ (09:20)
[2017-02-19] MEDS ORDERED: BUSP5TAB PO (16:24)
[2017-02-19] MEDS ORDERED: PARO30TA2 PO (16:24)
[2017-02-19] MEDS ORDERED: LOSA25TA PO (16:24)
[2017-02-19] MEDS ORDERED: ZOFR4TAB PO (16:24)
[2017-02-19] MEDS ORDERED: TIOT1AER2 INH (16:24)
[2017-02-19] MEDS ORDERED: HYDR-3583 PO (16:24)
[2017-02-19] MEDS ORDERED: AMLO10TA2 PO (16:24)
[2017-02-19] MEDS ORDERED: LEVEMIR SQ (16:24)
[2017-02-19] MEDS ORDERED: HYDR50TA15 PO (16:24)
[2017-02-25] MEDS ORDERED: INSU-170 (14:43)
[2017-02-25] MEDS ORDERED: IPRA17I INH (15:21)
[2017-03-05] MEDS ORDERED: FLUT50SP EACH NARE (13:17)
[2017-03-07] MEDS ORDERED: ALBU0.08 NEB (10:08)
[2017-03-21] MEDS ORDERED: LOSA50TA PO (14:25)
[2017-03-21] MEDS ORDERED: LEVEMIR SQ (14:25)
[2017-03-21] MEDS ORDERED: XARE20TA PO (14:25)
[2017-03-21] MEDS ORDERED: AMBI10TA PO (14:28)
[2017-03-29] MEDS ORDERED: ONDA1TAB17 PO (11:39)
[2017-03-29] MEDS ORDERED: PERI8.6T PO (11:39)
[2017-04-03] MEDS ORDERED: ALBUAER3 INH (13:31)
[2017-04-05] MEDS ORDERED: AMBI10TA PO (14:17)
[2017-04-05] MEDS ORDERED: NICO21DI2 T-DERMAL (14:17)
[2017-04-05] MEDS ORDERED: OMEP10CA PO (14:17)
[2017-04-05] MEDS ORDERED: VARE1PAK3 PO (14:17)
[2017-04-05] MEDS ORDERED: LEVEMIR SQ (14:17)
[2017-04-15] MEDS ORDERED: LEVEMIR SQ (16:26)
[2017-04-15] MEDS ORDERED: PANT40TA3 PO (16:30)
[2017-04-15] MEDS ORDERED: TRIA.1%T TOPICAL (16:44)
[2017-04-23] MEDS ORDERED: ADVA250A INH (21:16)
[2017-04-23] MEDS ORDERED: ALBU0.08 NEB (21:16)
[2017-04-24] MEDS ORDERED: ZOLP5TAB3 PO (21:02)
[2017-04-24] MEDS ORDERED: METO100T PO (21:37)
[2017-04-24] MEDS ORDERED: BD I1MIS10 (21:37)
[2017-04-24] MEDS ORDERED: BD L33MI ×2 (21:37→21:48)
[2017-04-24] MEDS ORDERED: NOVOLOGP2 SQ (21:37)
[2017-04-24] MEDS ORDERED: LIDO2GEL11 TOPICAL (21:37)
[2017-04-24] MEDS ORDERED: BLOOD GLUCOSE T1 TES (21:37)
[2017-04-24] MEDS ORDERED: OMEP20TA PO (21:37)
== END 2017-02-05 08:15 | disposition home or self-care (01) ==
LOC: NEPE 02:36
DX: J44.1 Chronic obstructive pulmonary disease with (acute) exacerbation (principal); I10 Essential (primary) hypertension; R94.31 Abnormal electrocardiogram [ECG] [EKG]; E11.9 Type 2 diabetes mellitus without complications; E78.00 Pure hypercholesterolemia, unspecified; G47.30 Sleep apnea, unspecified; F17.200 Nicotine dependence, unspecified, uncomplicated; Z79.4 Long term (current) use of insulin; Z79.01 Long term (current) use of anticoagulants; Z87.39 Personal history of other diseases of the musculoskeletal system and connective tissue; Z86.79 Personal history of other diseases of the circulatory system; Z87.09 Personal history of other diseases of the respiratory system; Z87.19 Personal history of other diseases of the digestive system; Z86.69 Personal history of other diseases of the nervous system and sense organs; Z86.2 Personal history of diseases of the blood and blood-forming organs and certain disorders involving the immune mechanism; Z85.42 Personal history of malignant neoplasm of other parts of uterus; Z86.59 Personal history of other mental and behavioral disorders
CPT/HCPCS: 71010; 80053; 82550; 82552; 84484; 85025; 93005; 94640; 94664; 96374; 99284; J2930; J7613

== ENCOUNTER 2017-02-09 07:56 | Emergency (ER) | payer MEDICAID ==
[~2017-02-09] VITALS: Ht 165.1 cm; Wt 82.0 kg
[2017-02-09 07:58] VITALS: BP 187/80; PULSE 97; RESP 17; TEMP 98.2; O2SAT 97
--- NOTE | 2017-02-09 08:06 | PD ---
HPI . right upper and lower jaw pain for 4 days Chief Complaint: Oral / Dental Pain or Problem Time Seen by Provider: 08:06 Travel History International Travel<30 days: No Contact w/Intl Traveler<30days: No Traveled to known affect area: No History of Present Illness HPI 51-year-old female with multiple medical problems here with complaints of right upper and lower jaw pain for the past 4 days. Patient was most recently here in hospital on February 05, 2017 secondary COPD exacerbation. She had an appointment with her dentist set up for February 06, however missed it due to being in the hospital. She tells me that she is having upper and lower jaw pain and decided to come in for further evaluation. She has pain when opening her mouth. She does not have any facial swelling. She has had issues in the past with her teeth. She denies any fever or chills. PFSH Past Medical History Hx Anticoagulant Therapy: Yes Arthritis: Yes Asthma: Yes Autoimmune Disease: No Blood Disorders: No Anxiety: No Depression: Yes Heart Rhythm Problems: No Cancer: Yes (UTERINE) Cardiac Catheterization: Yes (X6) Cardiovascular Problems: Yes (DC, STENTS X 3) High Cholesterol: Yes Chemotherapy: No Chest Pain: Yes Congestive Heart Failure: Yes COPD: Yes Cerebrovascular Accident: Yes (tia) Coronary Artery Disease: Yes Diabetes: Yes Diminished Hearing: No Endocrine: Yes Gastrointestinal Disorders: Yes (GASTRO PARESIS) GERD: Yes Genitourinary: No Headaches: No Hypertension: Yes Immune Disorder: No Implanted Vascular Access Dvce: No Musculoskeletal: Yes (chronic knee pain, chronic back pain) Neurologic: Yes (NEUROPATHY, CVA ) Psychiatric: Yes Reproductive: No Respiratory: Yes (copd) Immunizations Current: Yes Migraines: No Myocardial Infarction: Yes Radiation Therapy: No Seizures: Yes (2000,2001,2002) Sickle Cell Disease: Yes (SICKLE CELL TRAIT) Sleep Apnea: Yes Thyroid Disease: No Ulcer: Yes (YEARS AGO) ?: Not Menopausal: Yes Past Surgical History Abdominal Surgery: Yes (GALL BLADDER) Cardiac Surgery: Yes Cholecystectomy: Yes Coronary Stent: Yes (X2) Ear Surgery: No Endocrine Surgery: No Eye Surgery: No Genitourinary Surgery: No Gynecologic Surgery: Yes Hysterectomy: Yes Joint Replacement: Yes (left knee UPCOMING) Neurologic Surgery: Yes (NECK FUSED) Oral Surgery: No Thoracic Surgery: No Other Surgery: Yes (LEFT AXILLARY TUMOR REMOVED) Social History Alcohol Use: No Tobacco Use: Yes (1 PPD) Substance Use: No Allergies-Medications (Allergen,Severity, Reaction): Coded Allergies: Cipro (Verified Allergy, Severe, SWELLING SOB, 02/09/17) Erythromycin (Verified Allergy, Severe, SWELLING SOB, 02/09/17) Tramadol (Verified Allergy, Severe, rash, 02/09/17) Vancomycin (Verified Allergy, Severe, SWELLING AND SOB, 02/09/17) *MDRO Multi-Drug Resistant Organism (Verified Adverse Reaction, Unknown, ) 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 Albuterol Neb (Albuterol Sulfate) 2.5 Mg/3 Ml Neb 2.5 Mg NEB Q4HR NEB While awake Aspirin 81 (Aspirin) 81 Mg Tabdr 81 Mg PO EVERY OTHER DAY Metoprolol Tartrate 100 Mg Tab 100 Mg PO BID Lovastatin 20 Mg Tab 20 Mg PO HS Prednisone 50 Mg Tab 50 Mg PO DAILY 5 Days Levemir Inj (Insulin Detemir) 1,000 unit/ 10 ML Vial 45 Units SQ BID Do not mix with any other Insulin. Novolog Inj (Insulin Aspart) 1,000 Unit/10 Ml Vial 0-25 Units SQ ACHS Max dose at bedtime:( )units; sugars less than 70,(0) units; sugars 150-199,(5) units; sugars 200-249,(10) units; sugars 250-299,(15) units; sugars 300-349,(20)units; sugars greater than 349,(25)units Lyrica (Pregabalin) 100 Mg Cap 100 Mg PO TID Proair Hfa 8.5 GM Inh (Albuterol Sulfate) 90 Mcg/Act Aer 2 Puff INH Q4-6H PRN 108 mcg/actuation Ondansetron Odt 4 Mg Tab 4 Mg SL Q6HR PRN Fluticasone Nasal [place] 50 Mcg/Act Naspr 50 Mcg EACH NARE DAILY 50 mcg/spray Amlodipine (Amlodipine Besylate) 10 Mg Tab 10 Mg PO DAILY Buspirone (Buspirone HCl) 5 Mg Tab 5 Mg PO DAILY Hydralazine (Hydralazine HCl) 50 Mg Tab 50 Mg PO BID Take with a meal Advair Diskus Inh (Fluticasone-Salmeterol Inh) 250-50 Mcg/Blist Aer 1 Puff INH BID Rinse mouth after use. Reported Hydroxyzine Pamoate 50 Mg Cap 50 Mg PO BID PRN Abilify (Aripiprazole) 15 Mg Tab 15 Mg PO DAILY Ranitidine (Ranitidine HCl) 150 Mg Tab 150 Mg PO BID Lortab (Hydrocodone-Acetaminophen) 10-325 Mg Tab 1 Tab PO Q4-6H PRN Tizanidine (Tizanidine HCl) 4 Mg Tab 4 Mg PO QID Review of Systems General / Constitutional: No: Fever Eyes: No: Visual changes HENT: Positive: Dental Difficulties, No: Headaches Cardiovascular: No: Chest Pain or Discomfort Respiratory: No: Shortness of Breath Gastrointestinal: No: Abdominal Pain Genitourinary: No: Dysuria Musculoskeletal: No: Pain Skin: No Rash Neurologic: No: Weakness Psychiatric: No: Depression Endocrine: No: Polydipsia Hematologic/Lymphatic: No: Easy Bruising Physical Exam Narrative GENERAL: AAO x 3, no acute distress, Well-nourished, well-developed patient. SKIN: Warm and dry. No visible rashes or bruising. HEAD: Normocephalic and atraumatic. EYES: No scleral icterus. No injection or drainage. ENT: No nasal drainage noted. Mucous membranes pink. Airway patent. Multiple dental caries. Multiple missing teeth on lower right jaw. No visible abscess or fluid collection. No evidence of infection. No posterior pharynx erythema edema or exudates. TMs normal. NECK: Supple, trachea midline. No JVD. No lymphadenopathy CARDIOVASCULAR: Regular rate and rhythm without murmurs, gallops, or rubs. RESPIRATORY: Breath sounds equally diminished bilaterally. No accessory muscle use. No rhonchi or rales. No wheezing GASTROINTESTINAL: Visual inspection is normal EXTREMITIES: No cyanosis or edema. BACK: Nontender without obvious deformity. No CVA tenderness. PSYCH: AAO x 3, normal affect. Data Data Last Documented VS Vital Signs Date Time Temp Pulse Resp B/P Pulse Ox O2 Delivery O2 Flow Rate FiO2 02/09/17 07:58 98.2 97 17 187/80 97 MDM Medical Decision Making Medical Screen Exam Complete: Yes Emergency Medical Condition: Yes Medical Record Reviewed: Yes Differential Diagnosis Dentalgia, and dental caries, less likely oral abscess Narrative Course 51-year-old female with multiple medical problems here with complaints of right upper and lower jaw pain for the past 4 days. Patient was most recently here in hospital on February 05, 2017 secondary COPD exacerbation. She had an appointment with her dentist set up for February 06, however missed it due to being in the hospital. She tells me that she is having upper and lower jaw pain and decided to come in for further evaluation. She has pain when opening her mouth. She does not have any facial swelling. She has had issues in the past with her teeth. She denies any fever or chills. Patient seen and examined. She has multiple dental caries without any evidence of oral abscess or infection. She does not have any facial edema. She does have teeth that will likely need extractions. I've advised her that ultimately she will need to see a dentist for her issues. I've advised her that antibiotics are not warranted as there is no active infection. Recommend ibuprofen for inflammation and pain relief. Diagnosis Primary Impression: Dentalgia Patient Instructions: Dental Caries (ED), General Instructions Additional Instructions: Please return to emergency department if your symptoms return or worsen. Follow up with your primary care provider. Take medications as prescribed. Please make an appointment with your dentist as soon as possible. Med/Other Pt SpecificInfo: Prescription(s) given Scripts Ibuprofen 800 Mg [id number] Mg PO TID #21 TAB Prov:Alhaji Osei MD 02/09/17 Disposition: 01 DISCHARGE HOME Condition: Stable Allison Campos Feb 09, 2017 08:06 Allison Campos Feb 09, 2017 08:06
[2017-02-09] MEDS ORDERED: IBUP800T23 PO (08:16)
[2017-02-09 08:36] VITALS: BP 150/82; TEMP 97.8
[2017-02-12] MEDS ORDERED: LEVEMIR SQ (09:20)
[2017-02-19] MEDS ORDERED: HYDR50TA15 PO (16:24)
[2017-02-19] MEDS ORDERED: AMLO10TA2 PO (16:24)
[2017-02-19] MEDS ORDERED: LEVEMIR SQ (16:24)
[2017-02-19] MEDS ORDERED: TIOT1AER2 INH (16:24)
[2017-02-19] MEDS ORDERED: LOSA25TA PO (16:24)
[2017-02-19] MEDS ORDERED: PARO30TA2 PO (16:24)
[2017-02-19] MEDS ORDERED: HYDR-3583 PO (16:24)
[2017-02-19] MEDS ORDERED: ZOFR4TAB PO (16:24)
[2017-02-19] MEDS ORDERED: BUSP5TAB PO (16:24)
[2017-02-25] MEDS ORDERED: INSU-170 (14:43)
[2017-02-25] MEDS ORDERED: IPRA17I INH (15:21)
[2017-03-05] MEDS ORDERED: FLUT50SP EACH NARE (13:17)
[2017-03-07] MEDS ORDERED: ALBU0.08 NEB (10:08)
[2017-03-21] MEDS ORDERED: XARE20TA PO (14:25)
[2017-03-21] MEDS ORDERED: LOSA50TA PO (14:25)
[2017-03-21] MEDS ORDERED: LEVEMIR SQ (14:25)
[2017-03-21] MEDS ORDERED: AMBI10TA PO (14:28)
[2017-03-29] MEDS ORDERED: ONDA1TAB17 PO (11:39)
[2017-03-29] MEDS ORDERED: PERI8.6T PO (11:39)
[2017-04-03] MEDS ORDERED: ALBUAER3 INH (13:31)
[2017-04-05] MEDS ORDERED: NICO21DI2 T-DERMAL (14:17)
[2017-04-05] MEDS ORDERED: AMBI10TA PO (14:17)
[2017-04-05] MEDS ORDERED: LEVEMIR SQ (14:17)
[2017-04-05] MEDS ORDERED: VARE1PAK3 PO (14:17)
[2017-04-05] MEDS ORDERED: OMEP10CA PO (14:17)
[2017-04-15] MEDS ORDERED: LEVEMIR SQ (16:26)
[2017-04-15] MEDS ORDERED: PANT40TA3 PO (16:30)
[2017-04-15] MEDS ORDERED: TRIA.1%T TOPICAL (16:44)
[2017-04-23] MEDS ORDERED: ADVA250A INH (21:16)
[2017-04-23] MEDS ORDERED: ALBU0.08 NEB (21:16)
[2017-04-24] MEDS ORDERED: ZOLP5TAB3 PO (21:02)
[2017-04-24] MEDS ORDERED: BLOOD GLUCOSE T1 TES (21:37)
[2017-04-24] MEDS ORDERED: LIDO2GEL11 TOPICAL (21:37)
[2017-04-24] MEDS ORDERED: OMEP20TA PO (21:37)
[2017-04-24] MEDS ORDERED: NOVOLOGP2 SQ (21:37)
[2017-04-24] MEDS ORDERED: BD L33MI ×2 (21:37→21:48)
[2017-04-24] MEDS ORDERED: METO100T PO (21:37)
[2017-04-24] MEDS ORDERED: BD I1MIS10 (21:37)
== END 2017-02-09 08:36 | disposition home or self-care (01) ==
LOC: NEPD 07:56
DX: K08.89 Other specified disorders of teeth and supporting structures (principal); K02.9 Dental caries, unspecified; E11.9 Type 2 diabetes mellitus without complications; I10 Essential (primary) hypertension; E78.00 Pure hypercholesterolemia, unspecified; G47.30 Sleep apnea, unspecified; F17.200 Nicotine dependence, unspecified, uncomplicated; Z79.01 Long term (current) use of anticoagulants; Z79.4 Long term (current) use of insulin; Z87.39 Personal history of other diseases of the musculoskeletal system and connective tissue; Z87.09 Personal history of other diseases of the respiratory system; Z86.79 Personal history of other diseases of the circulatory system; Z87.19 Personal history of other diseases of the digestive system; Z86.69 Personal history of other diseases of the nervous system and sense organs; Z85.42 Personal history of malignant neoplasm of other parts of uterus; Z86.59 Personal history of other mental and behavioral disorders
CPT/HCPCS: 99282

== ENCOUNTER 2017-03-14 16:26 | Inpatient (IN) | payer MEDICAID ==
[~2017-03-14] VITALS: Ht 162.6 cm; Wt 88.5 kg
[2017-03-14] VITALS (14 sets, daily range): BP systolic 167–263; BP diastolic 86–148; PULSE 78–126; RESP 14–30; TEMP 97.9; O2SAT 95–100
[~2017-03-14 16:26] MED LIST changes: -HYDR-3535 PO; +HYDR-3583 PO; +IBUP800T23 PO; +INSU-170; +IPRA17I INH; +LOSA25TA PO; -ONDA4TAB7 SL; -ONETKIT9; -ONETMIS2; -ONETTES4; -WHEEMIS3; +ZOFR4TAB PO
[2017-03-14] MEDS ORDERED: PROPOFOL 1000 MG/100 ML INJ 100 ML ONE (16:31)
[2017-03-14] MEDS ORDERED: ETOMIDATE 20 MG/10 ML VIAL IVP ONE (16:45)
[2017-03-14] MEDS ORDERED: SODIUM CHLORIDE 0.9% FLUSH 10 ML FLUSH IVF PRN ×2 (16:45)
[2017-03-14] MEDS ORDERED: SUCCINYLCHOLINE CHLORIDE 200 MG/10 ML VIAL IVP ONE (16:45)
--- NOTE | 2017-03-14 16:54 | PD ---
HPI Chief Complaint: Respiratory Distress Time Seen by Provider: 16:32 Travel History International Travel<30 days: No (unknown) Contact w/Intl Traveler<30days: No Traveled to known affect area: No (unknown) History of Present Illness HPI This is a 51-year-old female with a reported history of CHF, COPD, asthma, who presents via EMS with severe respiratory distress. When paramedics arrived they found the patient in significant respiratory distress. She was pale cool and diaphoretic. They placed her on CPAP and transported her here via [facility] 911. The patient is unable to talk secondary to the severe distress. She is able to shake her head that she is in no pain. She also shakes her head that she is not improving. At that time, the decision was made to intubate her giving her declining respiratory status. PFSH Past Medical History Hx Anticoagulant Therapy: Yes Arthritis: Yes Asthma: Yes Autoimmune Disease: No Blood Disorders: No Anxiety: No Depression: Yes Heart Rhythm Problems: No Cancer: Yes (UTERINE) Cardiac Catheterization: Yes (X6) Cardiovascular Problems: Yes ([place], STENTS X 3) High Cholesterol: Yes Chemotherapy: No Chest Pain: Yes Congestive Heart Failure: Yes COPD: Yes Cerebrovascular Accident: Yes (tia) Coronary Artery Disease: Yes Diabetes: Yes Diminished Hearing: No Endocrine: Yes Gastrointestinal Disorders: Yes (GASTRO PARESIS) GERD: Yes Genitourinary: No Headaches: No Hypertension: Yes Immune Disorder: No Implanted Vascular Access Dvce: No Musculoskeletal: Yes (chronic knee pain, chronic back pain) Neurologic: Yes (NEUROPATHY, CVA ) Psychiatric: Yes Reproductive: No Respiratory: Yes (copd) Immunizations Current: Yes Migraines: No Myocardial Infarction: Yes Radiation Therapy: No Seizures: Yes (2000,2001,2002) Sickle Cell Disease: Yes (SICKLE CELL TRAIT) Sleep Apnea: Yes Thyroid Disease: No Ulcer: Yes (YEARS AGO) Menopausal: Yes Past Surgical History Abdominal Surgery: Yes (GALL BLADDER) Cardiac Surgery: Yes Cholecystectomy: Yes Coronary Stent: Yes (X2) Ear Surgery: No Endocrine Surgery: No Eye Surgery: No Genitourinary Surgery: No Gynecologic Surgery: Yes Hysterectomy: Yes Joint Replacement: Yes (left knee UPCOMING) Neurologic Surgery: Yes (NECK FUSED) Oral Surgery: No Thoracic Surgery: No Other Surgery: Yes (LEFT AXILLARY TUMOR REMOVED) Social History Alcohol Use: No Tobacco Use: Yes (1 PPD) Substance Use: No Allergies-Medications (Allergen,Severity, Reaction): Coded Allergies: Cipro (Verified Allergy, Severe, SWELLING SOB, 02/19/17) Erythromycin (Verified Allergy, Severe, SWELLING SOB, 02/19/17) Tramadol (Verified Allergy, Severe, rash, 02/19/17) Vancomycin (Verified Allergy, Severe, SWELLING AND SOB, 02/19/17) *MDRO Multi-Drug Resistant Organism (Verified Adverse Reaction, Unknown, ) 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) Reported Meds & Prescriptions Reported Meds & Active Scripts Active Albuterol Neb (Albuterol Sulfate) 2.5 Mg/3 Ml Neb 2.5 Mg NEB Q4HR NEB PRN Fluticasone Nasal [place] 50 Mcg/Act Naspr 50 Mcg EACH NARE DAILY 50 mcg/spray Atrovent HFA 12.9 GM Inh (Ipratropium [place]) 17 Mcg/Act Aer 2 Puff INH QID B-D Insulin Syringe Ultra 31G X 5/16" 1 ml 1 Mis Mis 1 Ea .ROUTE DIRECTED Hydrocodone-Acetaminophen 10-325 mg Tab 1 Tab PO Q4-6HR PRN Losartan (Losartan Potassium) 25 Mg Tab 25 Mg PO DAILY Zofran (Ondansetron HCl) 4 Mg Tab 4 Mg PO Q8HR PRN Levemir Inj (Insulin Detemir) 1,000 unit/ 10 ML Vial 30 Units SQ BID Do not mix with any other Insulin. Paroxetine (Paroxetine HCl) 30 Mg Tab 30 Mg PO DAILY Amlodipine (Amlodipine Besylate) 10 Mg Tab 10 Mg PO DAILY Buspirone (Buspirone HCl) 5 Mg Tab 5 Mg PO DAILY Hydralazine (Hydralazine HCl) 50 Mg Tab 50 Mg PO BID Take with a meal Ibuprofen 800 Mg Tab 800 Mg PO TID Nebulizer 1 Mis Mis 1 Ea .ROUTE DIRECTED Use with albuterol every 4 hours as needed for shortness of breath, wheezing. Aspirin 81 (Aspirin) 81 Mg Tabdr 81 Mg PO EVERY OTHER DAY Metoprolol Tartrate 100 Mg Tab 100 Mg PO BID Lovastatin 20 Mg Tab 20 Mg PO HS Prednisone 50 Mg Tab 50 Mg PO DAILY 5 Days Novolog Inj (Insulin Aspart) 1,000 Unit/10 Ml Vial 0-25 Units SQ ACHS Max dose at bedtime:( )units; sugars less than 70,(0) units; sugars 150-199,(5) units; sugars 200-249,(10) units; sugars 250-299,(15) units; sugars 300-349,(20)units; sugars greater than 349,(25)units Lyrica (Pregabalin) 100 Mg Cap 100 Mg PO TID Proair Hfa 8.5 GM Inh (Albuterol Sulfate) 90 Mcg/Act Aer 2 Puff INH Q4-6H PRN 108 mcg/actuation Advair Diskus Inh (Fluticasone-Salmeterol Inh) 250-50 Mcg/Blist Aer 1 Puff INH BID Rinse mouth after use. Reported Hydroxyzine Pamoate 50 Mg Cap 50 Mg PO BID PRN Abilify (Aripiprazole) 15 Mg Tab 15 Mg PO DAILY Ranitidine (Ranitidine HCl) 150 Mg Tab 150 Mg PO BID Tizanidine (Tizanidine HCl) 4 Mg Tab 4 Mg PO QID Review of Systems ROS Limitations: Clinical Condition (unable to obtain secondary to patient's severe Tory distress and diaphoresis.) Except as stated in HPI: all other systems reviewed are Neg Physical Exam Narrative GENERAL: Well-developed well-nourished female in severe respiratory distress. SKIN: Pale cool and diaphoretic. HEAD: Atraumatic. Normocephalic. EYES: No scleral icterus. No injection or drainage. ENT: Mucous membranes pink and moist. NECK: Trachea midline. No JVD. CARDIOVASCULAR: Tachycardic with a rate in the 130s 140s. Appeared to be sinus tachycardia. RESPIRATORY: Decreased breath sounds at the bilateral bases. Questionable Rales appreciated in the mid lung nunes. Patient was to Neck with a respiratory rate of 40. GASTROINTESTINAL: Abdomen soft, non-tender, nondistended. MUSCULOSKELETAL: No obvious deformities. No clubbing. No cyanosis. No edema. NEUROLOGICAL: Awake and in respiratory distress. No obvious cranial nerve deficits. Motor grossly within normal limits. Not able to speak secondary to the severe respiratory distress. Data Data Last Documented VS Vital Signs Date Time Temp Pulse Resp B/P Pulse Ox O2 Delivery O2 Flow Rate FiO2 03/14/17 17:11 100 14 170/94 95 03/14/17 17:07 50 03/14/17 17:06 Ventilator 03/14/17 16:45 15 Orders Propofol 1000 Mg/100 Ml Inj (Diprivan 10 (03/14/17 16:31) Arterial Blood Gas (Abg) (03/14/17 16:32) Ecg Monitoring (03/14/17 16:32) Iv Access Insert/Monitor (03/14/17 16:32) Oximetry (03/14/17 16:32) Etomidate Inj (Amidate Inj) (03/14/17 16:45) Succinylcholine Inj (Quelicin Inj) (03/14/17 16:45) Sodium Chloride 0.9% Flush (Ns Flush) (03/14/17 16:45) Electrocardiogram (03/14/17 16:44) Basic Metabolic Panel (Bmp) (03/14/17 16:44) Ckmb (Isoenzyme) Profile (03/14/17 16:44) Complete Blood Count With Diff (03/14/17 16:44) Magnesium (Mg) (03/14/17 16:44) Prothrombin Time / Inr (Pt) (03/14/17 16:44) Act Partial Throm Time (Ptt) (03/14/17 16:44) Troponin I (03/14/17 16:44) Chest, Single Ap (03/14/17 16:44) Bilateral Bp Monitoring (03/14/17 16:44) Oxygen Administration (03/14/17 16:44) Sodium Chloride 0.9% Flush (Ns Flush) (03/14/17 16:45) Labetalol Inj (Trandate Inj) (03/14/17 17:00) Urinary Catheter Insert/Apply (03/14/17 17:11) Diana-Gastric Tube Insert/Mon (03/14/17 17:11) Restraints Non-Violent MARLON.Q3H (03/14/17 17:11) Propofol 1000 Mg/100 Ml Inj (Diprivan 10 (03/14/17 17:15) ^ Infusion (03/14/17 17:11) RASS (03/14/17 17:11) Neurological Rass Scale MARLON.Q2H (03/14/17 17:11) Admit Order (Ed Use Only) (03/14/17 17:34) CKMB (03/14/17 17:00) CKMB% (03/14/17 17:00) Labs Laboratory Tests Test 03/14/17 17:00 White Blood Count 12.7 TH/MM3 Red Blood Count 4.75 MIL/MM3 Hemoglobin 12.6 GM/DL Hematocrit 41.2 % Mean Corpuscular Volume 86.7 FL Mean Corpuscular Hemoglobin 26.5 PG Mean Corpuscular Hemoglobin 30.6 % Concent Red Cell Distribution Width 14.5 % Platelet Count 344 TH/MM3 Mean Platelet Volume 9.3 FL Neutrophils (%) (Auto) 33.8 % Lymphocytes (%) (Auto) 62.1 % Monocytes (%) (Auto) 2.9 % Eosinophils (%) (Auto) 0.9 % Basophils (%) (Auto) 0.3 % Neutrophils # (Auto) 4.3 TH/MM3 Lymphocytes # (Auto) 7.9 TH/MM3 Monocytes # (Auto) 0.4 TH/MM3 Eosinophils # (Auto) 0.1 TH/MM3 Basophils # (Auto) 0.0 TH/MM3 CBC Comment AUTO DIFF Differential Total Cells 100 Counted Neutrophils % (Manual) 33 % Band Neutrophils % 1 % Lymphocytes % 62 % Monocytes % 3 % Basophils % 1 % Neutrophils # (Manual) 4.3 TH/MM3 Differential Comment FINAL DIFF MANUAL Atypical Lymphocytes % Platelet Estimate NORMAL Platelet Morphology Comment NORMAL Prothrombin Time 10.7 SEC Prothromb Time International 1.0 RATIO Ratio Activated Partial 26.1 SEC Thromboplast Time Sodium Level 140 MEQ/L Potassium Level 4.1 MEQ/L Chloride Level 102 MEQ/L Carbon Dioxide Level 21.4 MEQ/L Anion Gap 17 MEQ/L Blood Urea Nitrogen 12 MG/DL Creatinine 1.13 MG/DL Estimat Glomerular Filtration 61 ML/MIN Rate Random Glucose 402 MG/DL Calcium Level 8.9 MG/DL Magnesium Level 2.3 MG/DL Total Creatine Kinase 166 U/L Creatine Kinase MB 1.1 NG/ML Troponin I LESS THAN 0.02 NG/ML MDM Medical Decision Making Medical Screen Exam Complete: Yes Emergency Medical Condition: Yes Differential Diagnosis COPD exacerbation versus CHF versus ACS Narrative Course 51-year-old female came in in respiratory distress. The patient was impending failure. She was electively intubated. Cardiac enzymes are within normal limits. The patient's blood pressure was elevated. She was given labetalol 20 mg I V times one dose. She was also started on a propofol drip which brought her blood pressure down into the 170 systolic 90s diastolic. The case was discussed with Dr. Jones, immigration law specialist, who is gracious enough to come down and see the patient despite having not all of her labs back. She'll be admitted to the intensive care service. Critical Care Narrative Aggregate critical care time was 45 minutes. Time to perform other separately billable procedures was not included in the critical care time. My time did not include minutes spent treating any other patients simultaneously or on activities that did not directly contribute to the patient's treatment. The services I provided to this patient were to treat and/or prevent clinically significant deterioration that could result in: I provided critical care services requiring my management, as noted below: Chart data review, documentation time, medication orders and management, vital sign assessments/reviewing monitor data, ordering and reviewing lab tests, ordering and interpreting/reviewing x-rays and diagnostic studies, care of the patient and discussion of the patient with the admitting physicians. Procedures Procedure Narrative Patient was emergently intubated by myself and Dr. Narayan Chan. I administered 20 mg of IV accommodate. This was followed by 100 mg of succinylcholine. Patient was successfully intubated by Dr. Narayan Chan using the glidescope. Separate note for intubation to be admitted by Dr. Chan. Diagnosis Primary Impression: Respiratory failure, acute Qualified Code: J96.01 - Acute respiratory failure with hypoxia and hypercapnia Additional Impressions: Hyperglycemia due to type 2 diabetes mellitus COPD (chronic obstructive pulmonary disease) Qualified Code: J44.9 - Chronic obstructive pulmonary disease, unspecified COPD type Admitting Information Admitting Physician Requests: Admit Alhaji Osei MD March 14, 2017 16:54
[2017-03-14] MEDS ORDERED: LABETALOL HCL 100 MG/20 ML VIAL IV PUSH ONE (17:00)
--- NOTE | 2017-03-14 17:24 | PD ---
Physical Exam Narrative I was asked by Dr. Osei to intubate a patient. Data Data Last Documented VS Vital Signs Date Time Temp Pulse Resp B/P Pulse Ox O2 Delivery O2 Flow Rate FiO2 03/14/17 17:11 100 14 170/94 95 03/14/17 17:07 50 03/14/17 17:06 Ventilator 03/14/17 16:45 15 Orders Propofol 1000 Mg/100 Ml Inj (Diprivan 10 (03/14/17 16:31) Arterial Blood Gas (Abg) (03/14/17 16:32) Ecg Monitoring (03/14/17 16:32) Iv Access Insert/Monitor (03/14/17 16:32) Oximetry (03/14/17 16:32) Etomidate Inj (Amidate Inj) (03/14/17 16:45) Succinylcholine Inj (Quelicin Inj) (03/14/17 16:45) Sodium Chloride 0.9% Flush (Ns Flush) (03/14/17 16:45) Electrocardiogram (03/14/17 16:44) Basic Metabolic Panel (Bmp) (03/14/17 16:44) Ckmb (Isoenzyme) Profile (03/14/17 16:44) Complete Blood Count With Diff (03/14/17 16:44) Magnesium (Mg) (03/14/17 16:44) Prothrombin Time / Inr (Pt) (03/14/17 16:44) Act Partial Throm Time (Ptt) (03/14/17 16:44) Troponin I (03/14/17 16:44) Chest, Single Ap (03/14/17 16:44) Bilateral Bp Monitoring (03/14/17 16:44) Oxygen Administration (03/14/17 16:44) Sodium Chloride 0.9% Flush (Ns Flush) (03/14/17 16:45) Labetalol Inj (Trandate Inj) (03/14/17 17:00) Urinary Catheter Insert/Apply (03/14/17 17:11) Diana-Gastric Tube Insert/Mon (03/14/17 17:11) Restraints Non-Violent MARLON.Q3H (03/14/17 17:11) Propofol 1000 Mg/100 Ml Inj (Diprivan 10 (03/14/17 17:15) ^ Infusion (03/14/17 17:11) RASS (03/14/17 17:11) Neurological Rass Scale MARLON.Q2H (03/14/17 17:11) Admit Order (Ed Use Only) (03/14/17 17:34) CKMB (03/14/17 17:00) CKMB% (03/14/17 17:00) Labs Laboratory Tests Test 03/14/17 03/14/17 03/14/17 14:20 17:00 17:20 Fibrinogen 499 mg/dL Lactic Acid Level 2.2 mmol/L White Blood Count 12.7 TH/MM3 Red Blood Count 4.75 MIL/MM3 Hemoglobin 12.6 GM/DL Hematocrit 41.2 % Mean Corpuscular Volume 86.7 FL Mean Corpuscular Hemoglobin 26.5 PG Mean Corpuscular Hemoglobin 30.6 % Concent Red Cell Distribution Width 14.5 % Platelet Count 344 TH/MM3 Mean Platelet Volume 9.3 FL Neutrophils (%) (Auto) 33.8 % Lymphocytes (%) (Auto) 62.1 % Monocytes (%) (Auto) 2.9 % Eosinophils (%) (Auto) 0.9 % Basophils (%) (Auto) 0.3 % Neutrophils # (Auto) 4.3 TH/MM3 Lymphocytes # (Auto) 7.9 TH/MM3 Monocytes # (Auto) 0.4 TH/MM3 Eosinophils # (Auto) 0.1 TH/MM3 Basophils # (Auto) 0.0 TH/MM3 CBC Comment AUTO DIFF Differential Total Cells 100 Counted Neutrophils % (Manual) 33 % Band Neutrophils % 1 % Lymphocytes % 62 % Monocytes % 3 % Basophils % 1 % Neutrophils # (Manual) 4.3 TH/MM3 Differential Comment FINAL DIFF MANUAL Atypical Lymphocytes % Platelet Estimate NORMAL Platelet Morphology Comment NORMAL Prothrombin Time 10.7 SEC Prothromb Time International 1.0 RATIO Ratio Activated Partial 26.1 SEC Thromboplast Time Sodium Level 140 MEQ/L Potassium Level 4.1 MEQ/L Chloride Level 102 MEQ/L Carbon Dioxide Level 21.4 MEQ/L Anion Gap 17 MEQ/L Blood Urea Nitrogen 12 MG/DL Creatinine 1.13 MG/DL Estimat Glomerular Filtration 61 ML/MIN Rate Random Glucose 402 MG/DL Calcium Level 8.9 MG/DL Magnesium Level 2.3 MG/DL Total Creatine Kinase 166 U/L Creatine Kinase MB 1.1 NG/ML Troponin I LESS THAN 0.02 NG/ML Urine Color LIGHT-YELLOW Urine Turbidity CLEAR Urine pH 7.0 Urine Specific [place] 1.012 Urine Protein 300 mg/dL Urine Glucose (UA) 1000 mg/dL Urine Ketones NEG mg/dL Urine Occult Blood NEG Urine Nitrite NEG Urine Bilirubin NEG Urine Urobilinogen LESS THAN 2.0 MG/DL Urine Leukocyte Esterase NEG Urine RBC 3 /hpf Urine WBC 5 /hpf Urine Squamous Epithelial <1 /hpf Cells Urine Amorphous Sediment RARE Urine Bacteria RARE /hpf Urine Mucus FEW /lpf Microscopic Urinalysis Comment CATH-CULT NOT IND MDM Supervised Visit with JUSTIN: No Procedures Procedure Narrative After the risks and benefits were discussed the following procedure was performed: INTUBATION: The patient was put in optimal position for the procedure. Rapid sequence intubation was initiated by me using 20 milligrams of etomidate IV and 100 milligrams of succinyl choline IV. The patient was intubated with a 7.5 cuffed endotracheal tube. Tube placement was confirmed by visualization of the tube and balloon passing through the cords, capnometry and subsequent chest x- ray. Breath sounds were equal and well aerated bilaterally postintubation. No breath sounds over stomach. Patient tolerated procedure well. Narayan Chan MD March 14, 2017 17:23
--- NOTE | 2017-03-14 17:33 | RADRPT ---
EXAM DATE/TIME: 03/14/2017 17:03 [place] COMPARISON: No previous studies available for comparison. INDICATIONS : Chest pain. MEDICAL HISTORY : Asthma SURGICAL HISTORY : None. Fusion, cervical. ENCOUNTER: Initial ACUITY: 1 day PAIN SCORE: Non-responsive. LOCATION: Bilateral chest FINDINGS: Single view of the chest demonstrates the endotracheal tube and nasogastric tube are andrea th in good position. There is mild pulmonary hilar vascular prominence. Some early air-space disease right lower lobe. No visible pneumothorax. CONCLUSION: Mild interstitial prominence. There may be some early consolidation right lower lobe . Ari Cruz MD on March 14, 2017 at 17:30 Board Certified Radiologist. This report was verified electronically.
[2017-03-14 17:53] LABS: APTT (PATIENT) 26.1 SEC (24.3-30.1); PROTHROMBIN TIME - PATIENT 10.7 SEC (9.8-11.6)
[2017-03-14] MEDS ORDERED: AZITHROMYCIN INJ 500 MG in SODIUM CHLOR 0.9% 250 ML INJ 250 ML IV SCH (18:00)
[2017-03-14] MEDS ORDERED: PROPOFOL 1000 MG/100 ML INJ 100 ML IV SCH (18:00)
[2017-03-14] MEDS ORDERED: SENNOSIDES SYRUP 8.8 MG/5 ML CUP G-TUBE PRN (18:00)
[2017-03-14] MEDS ORDERED: ACETAMINOPHEN 325 MG TAB PO PRN (18:00)
[2017-03-14] MEDS ORDERED: CHLORHEXIDINE GLUCONATE 2 % 1 PACK (2 CLOTHS) TOP PRN (18:00)
[2017-03-14] MEDS ORDERED: MISCELLANEOUS NURSING INFORMATION XX SCH (18:00)
[2017-03-14] MEDS ORDERED: NITROGLYCERIN 2% OINT 1 GM PACKET TOPICAL PRN (18:00)
[2017-03-14] MEDS ORDERED: SODIUM CHLORIDE 0.9% FLUSH 10 ML FLUSH IV FLUSH PRN (18:00)
[2017-03-14] MEDS ORDERED: DEXTROSE 50% IN WATER 50 ML VIAL(D50) IV PRN (18:00)
[2017-03-14] MEDS ORDERED: RESP: ALBUTEROL 2.5 MG/3 ML NEB (PRN) INH (18:00)
[2017-03-14] MEDS ORDERED: LABETALOL HCL 100 MG/20 ML VIAL IV PUSH PRN (18:00)
[2017-03-14] MEDS ORDERED: ONDANSETRON HCL 4 MG/2 ML VIAL IV PRN (18:00)
[2017-03-14] MEDS ORDERED: GLUCAGON 1 MG/ML VIAL OTHER PRN (18:00)
[2017-03-14 18:01] LABS: AUTOMATED NEUTROPHIL # 4.3 TH/MM3 (1.8-7.7); BASOPHIL % 0.3 % (0.0-2.0); EOSINOPHIL # 0.1 TH/MM3 (0-0.4); EOSINOPHIL % 0.9 % (0.0-4.0); HEMATOCRIT 41.2 % (35.0-46.0); LYMPH % 62.1 % (9.0-44.0); LYMPHOCYTE # 7.9 TH/MM3 (1.0-4.8); MEAN CELL VOLUME 86.7 FL (80.0-100.0); MEAN CORPUSCULAR HEMOGLOBIN 26.5 PG (27.0-34.0); MEAN CORPUSCULAR HGB CONC 30.6 % (32.0-36.0); MONO % 2.9 % (0.0-8.0); NEUT % 33.8 % (16.0-70.0); PLATELET COUNT 344 TH/MM3 (150-450); RED BLOOD COUNT 4.75 MIL/MM3 (4.00-5.30); RED CELL DISTRIBUTION WIDTH 14.5 % (11.6-17.2); WHITE BLOOD COUNT 12.7 TH/MM3 (4.0-11.0)
--- NOTE | 2017-03-14 18:01 | HHI.HP ---
[facility] Service Critical Care Medicine Primary Care Physician Juan Ramon Jason MD Admission Diagnosis Respiratory failure, copd, diabetes mellitus Diagnosis: (1) Malignant essential hypertension Diagnosis: Principal (2) COPD (chronic obstructive pulmonary disease) Diagnosis: Principal (3) BMI 29.0-29.9,adult Diagnosis: Principal (4) COPD exacerbation Diagnosis: Principal (5) Respiratory failure, acute Diagnosis: Principal (6) Diabetes mellitus Diagnosis: Principal (7) GERD (gastroesophageal reflux disease) Diagnosis: Principal Chief Complaint: Shortness of breath Travel History International Travel<30 Days: No (unknown) Contact w/Intl Traveler <30 Da: No Traveled to Known Affected Are: No (unknown) History of Present Illness This is a 51-year-old female. Date of admission 03/14/2017. Past medical history includes a CVA 3, ongoing tobaccoism of COPD, dyslipidemia , hypertension, gastroesophageal reflux disease, history of or a disease with 3 stents placed in 2009, diabetes mellitus with peripheral neuropathy, gastroparesis, depression/anxiety, sickle cell trait, seizure disorder. Patient was in her usual state of health when [facility] was notified due to sudden increase of shortness of breath. She remained quite hypertensive which resulted in intubation in the ED by Dr. Hsu with a 7.5 ET tube after receiving 20 mg etomidate and 100 mg succinylcholine. Chest x-ray revealed hyperinflated lungs with possible right lower lobe infiltrate. Review of Systems ROS Limitations: Intubated Past Family Social History Allergies: Coded Allergies: Cipro (Verified Allergy, Severe, SWELLING SOB, 02/19/17) Erythromycin (Verified Allergy, Severe, SWELLING SOB, 02/19/17) Tramadol (Verified Allergy, Severe, rash, 02/19/17) Vancomycin (Verified Allergy, Severe, SWELLING AND SOB, 02/19/17) *MDRO Multi-Drug Resistant Organism (Verified Adverse Reaction, Unknown, ) 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) Past Medical History Gastroesophageal reflux disease Diabetes mellitus with neuropathy and gastroparesis Chronic kidney disease Morbid obesity COPD Coronary artery disease status post stent 3 Seizure disorder Sickle cell trait History of uterine cancer Pruritus Hypertension Dyslipidemia History CVA/TIA 3 Past Surgical History Left total knee arthroplasty Left axillary tumor removal Coronary stent 3 Cholecystectomy Hysterectomy/left oophorectomy Neck fusion Reported Medications Albuterol Neb (Albuterol Sulfate) 2.5 Mg/3 Ml Neb 2.5 Mg NEB Q4HR NEB PRN Fluticasone Nasal [place] 50 Mcg/Act Naspr 50 Mcg EACH NARE DAILY 50 mcg/spray Atrovent HFA 12.9 GM Inh (Ipratropium [place]) 17 Mcg/Act Aer 2 Puff INH QID B-D Insulin Syringe Ultra 31G X 5/16" 1 ml 1 Mis Mis 1 Ea .ROUTE DIRECTED Hydrocodone-Acetaminophen 10-325 mg Tab 1 Tab PO Q4-6HR PRN Losartan (Losartan Potassium) 25 Mg Tab 25 Mg PO DAILY Zofran (Ondansetron HCl) 4 Mg Tab 4 Mg PO Q8HR PRN Levemir Inj (Insulin Detemir) 1,000 unit/ 10 ML Vial 30 Units SQ BID Do not mix with any other Insulin. Paroxetine (Paroxetine HCl) 30 Mg Tab 30 Mg PO DAILY Amlodipine (Amlodipine Besylate) 10 Mg Tab 10 Mg PO DAILY Buspirone (Buspirone HCl) 5 Mg Tab 5 Mg PO DAILY Hydralazine (Hydralazine HCl) 50 Mg Tab 50 Mg PO BID Take with a meal Ibuprofen 800 Mg Tab 800 Mg PO TID Nebulizer 1 Mis Mis 1 Ea .ROUTE DIRECTED Use with albuterol every 4 hours as needed for shortness of breath, wheezing. Aspirin 81 (Aspirin) 81 Mg Tabdr 81 Mg PO EVERY OTHER DAY Metoprolol Tartrate 100 Mg Tab 100 Mg PO BID Lovastatin 20 Mg Tab 20 Mg PO HS Prednisone 50 Mg Tab 50 Mg PO DAILY 5 Days Novolog Inj (Insulin Aspart) 1,000 Unit/10 Ml Vial 0-25 Units SQ ACHS Max dose at bedtime:( )units; sugars less than 70,(0) units; sugars 150-199,(5) units; sugars 200-249,(10) units; sugars 250-299,(15) units; sugars 300-349,(20)units; sugars greater than 349,(25)units Lyrica (Pregabalin) 100 Mg Cap 100 Mg PO TID Proair Hfa 8.5 GM Inh (Albuterol Sulfate) 90 Mcg/Act Aer 2 Puff INH Q4-6H PRN 108 mcg/actuation Advair Diskus Inh (Fluticasone-Salmeterol Inh) 250-50 Mcg/Blist Aer 1 Puff INH BID Rinse mouth after use. Reported Hydroxyzine Pamoate 50 Mg Cap 50 Mg PO BID PRN Abilify (Aripiprazole) 15 Mg Tab 15 Mg PO DAILY Ranitidine (Ranitidine HCl) 150 Mg Tab 150 Mg PO BID Tizanidine (Tizanidine HCl) 4 Mg Tab 4 Mg PO QID Active Ordered Medications Reviewed in EMR Family History Mother with heart disease, CVA, diabetes. Father with diabetes, colon cancer. Children are healthy. Social History 1 pack per day tobacco x 40 year. No tobacco or IV drug use. Physical Exam Vital Signs Vital Signs Date Time Temp Pulse Resp B/P Pulse Ox O2 Delivery O2 Flow Rate FiO2 03/14/17 17:11 100 14 170/94 95 03/14/17 17:11 99 95 03/14/17 17:07 50 03/14/17 17:06 103 16 215/118 98 Ventilator 03/14/17 16:50 115 22 263/148 99 Ventilator 100 03/14/17 16:45 116 20 215/123 99 15 03/14/17 16:43 122 22 175/119 99 15 03/14/17 16:26 126 30 246/146 99 Physical Exam GENERAL: 51-year-old AA female, currently orotracheally intubated in ED pod 59 SKIN: Warm and dry. Multiple scars no located in bilateral lower extremities well-healed HEAD: Atraumatic. Normocephalic. EYES: Pupils equal and round. No scleral icterus. No injection or drainage. ENT: No nasal bleeding or discharge. Mucous membranes pink and moist. NECK: Trachea midline. No JVD. CARDIOVASCULAR: Regular rate and rhythm. S1, S2. No S4. RESPIRATORY: Diminished breath sounds throughout. Positive and extremity wheezes. Breath sounds equal bilaterally. GASTROINTESTINAL: Abdomen soft, non-tender, nondistended. Hyperactive bowel sounds are appreciated. MUSCULOSKELETAL: Extremities without significant peripheral edema. No obvious deformities. NEUROLOGICAL: Awake and alert. No obvious cranial nerve deficits. Moves all 4 extremities spontaneously and to command. Nods head appropriately to questions. Imaging Chest x-ray reveals ET tube above tian.. Hyperinflated lungs. Possible right lower lobe infiltrate Assessment and Plan Assessment and Plan Neuro/Psych: Depression/anxiety Acute toxic metabolic encephalopathy Propofol/fentanyl for sedation/analgesia while intubated Goal of RASS -2 Daily sedation vacation Continue Abilify 15 mill grams daily, BuSpar 5 mill grams daily and Paxil 30 mg daily home medications for depression/anxiety Continue Lyrica 100 mg by mouth 3 times a day for peripheral neuropathy CV: Hypertensive emergency Coronary artery disease status post stent 3 Dyslipidemia Home medications Lopressor 20 mg twice a day, Norvasc 10 mg daily and hydralazine 50 mg twice a day continue. Await laboratories before restarting losartan 25 mg daily As needed labetalol/hydralazine/Nitropaste EKG revealed sinus tachycardia with normal [place]/QRS intervals. ST T changes in V5 and V6. CPK/troponin pending Echocardiogram ordered for hypertensive heart disease Resp: Acute hypercapnic hypoxemic respiratory failure COPD ACV 14/550/5/100 Ventilator bundle Bronchodilator therapy every 4 hours and as needed Solu-Medrol 40 iv every 8 hours Pulmicort twice a day Follow-up ABG. Spontaneous breathing trials daily On Advair 250/50 one inhalation twice a day with Atrovent 4 times a day and ProAir 2 puffs every 4 6 hours when necessary. GI: Gastroesophageal reflux disease Diabetic gastroparesis Morbid obesity OGT to LIWS Protonix for GI prophylaxis. On Zantac 150 mg twice a day at home Colace/as needed Senokot for bowel regimen Follow-up on hepatic profile : Shah will be placed for accurate I's nose any critically ill patient Endo: Diabetes mellitus with neuropathy and gastroparesis Chronic prednisone use Home medications Levemir 30 units twice a day with Novulog sliding scale. Currently Accu-Cheks every 6 hours/median protocol. Titrate to keep cyst euglycemic Renal: History of chronic kidney disease Follow-up on BMP Heme: Leukocytosis Anemia Follow-up on CBC and coags ID: Check blood cultures 2, sputum and urine. Check influenza Empirically treated with Zosyn/Zithromax. FEN: Replace electrolytes as clinically indicated MSK: PT evaluate and treat Access - Utilize peripheral IV. Central line if indicated Prophylaxis - GI - Protonix - DVT - SCD/heparin subcutaneous Critical Care: The total critical care time was 35 minutes. Time to perform other separately billable procedures was not included in the critical care time. Code Status Full code Discussed Condition With ED physician. Care plan discussed and all questions answered. Problem Qualifiers (1) COPD (chronic obstructive pulmonary disease): Qualified Code: J44.9 - Chronic obstructive pulmonary disease, unspecified COPD type (2) Respiratory failure, acute: Qualified Code: J96.01 - Acute respiratory failure with hypoxia and hypercapnia (3) Diabetes mellitus: Qualified Code: E11.9 - Type 2 diabetes mellitus without complication, with long-term current use of insulin (4) GERD (gastroesophageal reflux disease): Qualified Code: K21.9 - Gastroesophageal reflux disease, esophagitis presence not specified Carlos Eduardo Jones MD March 14, 2017 18:01 Carlos Eduardo Jones MD March 14, 2017 18:01
[2017-03-14] MEDS: PROPOFOL 1000 MG/100 ML INJ 100 ML IV SCH ×2 (18:04→19:44)
[2017-03-14 18:10] LABS: HEMO FLAGS AUTO DIFF
[2017-03-14] MEDS ORDERED: fentaNYL DRIP 250 ML ONE (18:17)
[2017-03-14] MEDS: fentaNYL DRIP 250 ML IV SCH (18:19)
[2017-03-14 18:29] LABS: BLOOD GAS BASE EXCESS 0.4 mmol/L (-2-2); BLOOD GAS CARBOXYHEMOGLOBIN 5.5 % (0-4); BLOOD GAS HCO3 25 mmol/L (22-26); BLOOD GAS METHEMOGLOBIN 0.7 % (0-2); BLOOD GAS O2 HGB SATURATION 91 % (90-100); BLOOD GAS OXYGEN CONTENT 13.8 Vol % (12.0-20.0); BLOOD GAS PCO2 42 mmHg (38-42); BLOOD GAS PO2 84 mmHG (61-120); BLOOD GAS TOTAL HGB 10.8 G/DL (12.0-16.0); CRITICAL VALUE YES; OXYGEN DEVICE VENTILATOR; TEMP CORR TO 98.6
[2017-03-14 18:30] LABS: DRAW SITE RT RADIAL; FIO2 50 %; NUMBER OF ARTERIAL PUNCTURES 1; STAT YES; ULNAR PULSE PRESENT; VENT SETTINGS 600/14/+5
[2017-03-14 18:32] LABS: ANION GAP 17 MEQ/L (5-15); BICARBONATE 21.4 MEQ/L (21.0-32.0); BLOOD UREA NITROGEN 12 MG/DL (7-18); CHLORIDE 102 MEQ/L (98-107); CREATINE KINASE 166 U/L (26-192); GLOMERULAR FILTRATION RATE 61 ML/MIN (>89); MAGNESIUM 2.3 MG/DL (1.5-2.5); SODIUM (NA) 140 MEQ/L (136-145)
[2017-03-14 18:33] LABS: POTASSIUM 4.1 MEQ/L (3.5-5.1)
[2017-03-14 18:37] LABS: BANDS 1 % (0-6); BASOPHILS 1 % (0-2); NEUTROPHIL # MANUAL DIFF 4.3 TH/MM3 (1.8-7.7); POLYS (SEG NEUTROPHILS) 33 % (16-70); WBC DIFF SAMPLE 100
[2017-03-14 18:39] LABS: PLATELET ESTIMATE SMEAR NORMAL (NORMAL); PLATELET MORPHOLOGY NORMAL (NORMAL); SCAN/DIFF FINAL DIFF MANUAL
[2017-03-14 19:03] LABS: CKMB 1.1 NG/ML (0.5-3.6)
[2017-03-14 19:35] LABS: BACTERIA, URINE RARE /hpf; BLOOD, URINE NEG (NEG); GLUCOSE,URINE 1000 mg/dL (NEG); KETONE, URINE NEG (NEG); MUCUS URINE FEW /lpf (OCC); NITRITE,URINE NEG (NEG); SQUAMOUS EPITHELIAL CELL URINE <1 /hpf (0-5); URINE COLOR LIGHT-YELLOW (YELLW/STRAW)
[2017-03-14 19:36] LABS: COMMENT (UR) CATH-CULT NOT IND; CULTURE IF INDICATED CATH CULTURE NOT IND
[2017-03-14] MEDS: PIPERACIL-TAZO 4.5 GM PREMIX 100 ML IV SCH (19:43)
[2017-03-14] MEDS: SODIUM CHLOR 0.9% 1000 ML INJ 1,000 ML IV SCH (19:43)
[2017-03-14] MEDS: methylPREDNISolone SOD SUCC 40 MG/1 ML VIAL IV PUSH SCH (19:43)
[2017-03-14] MEDS: PREGABALIN 100 MG CAP PO SCH (19:44)
[2017-03-14] MEDS: SODIUM CHLORIDE 0.9% FLUSH 10 ML FLUSH IV FLUSH SCH (19:45)
[2017-03-14] MEDS: METOPROLOL TARTRATE 100 MG TAB PO SCH (19:45)
[2017-03-14] MEDS: INSULIN NovoLIN REGULAR SUPPLEMENTAL SCALE SQ SCH (19:52)
[2017-03-14] MEDS: RESP: BUDESONIDE 0.5 MG/2 ML NEB NEB SCH (20:00)
[2017-03-14] MEDS: CHLORHEXIDINE 0.12% (ORAL KIT) 15 ML CUP MT SCH (20:00)
[2017-03-14] MEDS: RESP: ALBUTEROL 2.5 MG/IPRATROPIUM 0.5 MG NEB (SCH) INH ×2 (20:30→23:22)
[2017-03-14 23:21] LABS: INDIRECT BILIRUBIN 0.5 MG/DL (0.0-0.8); TOTAL BILIRUBIN ADULT 0.6 MG/DL (0.2-1.0)
[2017-03-15] VITALS (16 sets, daily range): BP systolic 154–185; BP diastolic 74–87; PULSE 70–98; RESP 12–15; TEMP 98.6–99.3; O2SAT 92–100
[2017-03-15] MEDS: PROPOFOL 1000 MG/100 ML INJ 100 ML IV SCH ×2 (01:07→04:46)
[2017-03-15] MEDS: CHLORHEXIDINE GLUCONATE 2 % 1 PACK (2 CLOTHS) TOP SCH (01:08)
[2017-03-15] MEDS: RESP: ALBUTEROL 2.5 MG/IPRATROPIUM 0.5 MG NEB (SCH) INH ×6 (04:12→23:48)
[2017-03-15 04:34] LABS: BASOPHIL % 0.1 % (0.0-2.0); HEMATOCRIT 31.9 % (35.0-46.0); HEMO FLAGS DIFF FINAL; LYMPH % 12.7 % (9.0-44.0); MEAN CELL VOLUME 81.6 FL (80.0-100.0); MEAN CORPUSCULAR HEMOGLOBIN 27.4 PG (27.0-34.0); MEAN CORPUSCULAR HGB CONC 33.6 % (32.0-36.0); MONO % 1.5 % (0.0-8.0); NEUT % 85.7 % (16.0-70.0); PLATELET COUNT 251 TH/MM3 (150-450); RED BLOOD COUNT 3.91 MIL/MM3 (4.00-5.30); WHITE BLOOD COUNT 8.1 TH/MM3 (4.0-11.0)
[2017-03-15 04:36] LABS: APTT (PATIENT) 27.8 SEC (24.3-30.1); PROTHROMBIN TIME - PATIENT 11.4 SEC (9.8-11.6)
[2017-03-15] MEDS: methylPREDNISolone SOD SUCC 40 MG/1 ML VIAL IV PUSH SCH ×3 (04:46→19:38)
[2017-03-15] MEDS: SODIUM CHLOR 0.9% 1000 ML INJ 1,000 ML IV SCH (04:46)
[2017-03-15] MEDS: INSULIN NovoLIN REGULAR SUPPLEMENTAL SCALE SQ SCH ×4 (04:52→19:46)
[2017-03-15] MEDS: PIPERACIL-TAZO 4.5 GM PREMIX 100 ML IV SCH ×3 (04:53→19:37)
[2017-03-15] MEDS: fentaNYL DRIP 250 ML IV SCH (04:54)
[2017-03-15 05:10] LABS: ALKALINE PHOSPHATASE 177 U/L (45-117); ALT (GPT) 50 U/L (10-53); ANION GAP 11 MEQ/L (5-15); AST (GOT) 46 U/L (15-37); BICARBONATE 26.6 MEQ/L (21.0-32.0); BLOOD UREA NITROGEN 12 MG/DL (7-18); CHLORIDE 104 MEQ/L (98-107); GLOMERULAR FILTRATION RATE 84 ML/MIN (>89); MAGNESIUM 1.8 MG/DL (1.5-2.5); POTASSIUM 3.6 MEQ/L (3.5-5.1); SODIUM (NA) 142 MEQ/L (136-145); TOTAL BILIRUBIN ADULT 0.5 MG/DL (0.2-1.0)
[2017-03-15] MEDS: RESP: BUDESONIDE 0.5 MG/2 ML NEB NEB SCH ×2 (07:31→20:05)
--- NOTE | 2017-03-15 07:41 | HHI.CCPN ---
Subjective Remarks/Hospital Course This is a 51-year-old female. Date of admission 03/14/2017. Past medical history includes a CVA 3, ongoing tobaccoism of COPD, dyslipidemia , hypertension, gastroesophageal reflux disease, history of or a disease with 3 stents placed in 2009, diabetes mellitus with peripheral neuropathy, gastroparesis, depression/anxiety, sickle cell trait, seizure disorder. Patient was in her usual state of health when [facility] was notified due to sudden increase of shortness of breath. She remained quite hypertensive which resulted in intubation in the ED by Dr. Hsu with a 7.5 ET tube after receiving 20 mg etomidate and 100 mg succinylcholine. Chest x-ray revealed hyperinflated lungs with possible right lower lobe infiltrate. Subjective 03/15: Resting in bed. Appears comfortable on ventilation. FiO2 40%. Hemodynamically stable likely hypertensive. Objective Vital Signs Date Time Temp Pulse Resp B/P Pulse Ox O2 Delivery O2 Flow Rate FiO2 03/15/17 07:33 98 40 03/15/17 06:00 70 03/15/17 04:00 99.3 14 170/80 03/14/17 20:00 Ventilator 03/14/17 16:45 15 Intake and Output 03/14/17 03/14/17 03/15/17 08:00 16:00 00:00 Intake Total 730 ml Output Total 500 ml Balance 230 ml Result Diagram: 03/15/17 0409 03/15/17 0409 Other Results Microbiology Date/Time Procedure Status Source Growth 03/14/17 23:30 Gram Stain Received Sputum Endotracheal Pending 03/14/17 23:30 Sputum Culture Received Sputum Endotracheal Pending 03/14/17 19:15 Aerobic Blood Culture Received Blood Peripheral Pending 03/14/17 19:15 Anaerobic Blood Culture Received Blood Peripheral Pending 03/14/17 14:20 Influenza Types A,B Antigen (SANYA) - Final Complete Nasal Aspirate NEGATIVE FOR FLU A AND B ANTIGEN.... Imaging Last Impressions Chest X-Ray 03/14/17 1644 Signed Impressions: Service Date/Time: , March 14, 2017 17:03 - CONCLUSION: Mild interstitial prominence. There may be some early consolidation right lower lobe. Ari Cruz MD Objective Remarks GENERAL: 51-year-old AA female, currently orotracheally intubated in no acute distress SKIN: Warm and dry. Multiple scars healed located in bilateral lower extremities without erythema HEAD: Atraumatic. Normocephalic. EYES: Pupils equal and round. No scleral icterus. No injection or drainage. ENT: No nasal bleeding or discharge. Mucous membranes pink and moist. NECK: Trachea midline. No JVD. CARDIOVASCULAR: Regular rate and rhythm. S1, S2. No S4. RESPIRATORY: Diminished breath sounds throughout. Positive and extremity wheezes. Breath sounds equal bilaterally. GASTROINTESTINAL: Abdomen soft, non-tender, nondistended. Hyperactive bowel sounds are appreciated. MUSCULOSKELETAL: Extremities without significant peripheral edema. No obvious deformities. NEUROLOGICAL: Awake and alert. No obvious cranial nerve deficits. Moves all 4 extremities spontaneously and to command. Nods head appropriately to questions. A/P Assessment and Plan Neuro/Psych: Depression/anxiety Acute toxic metabolic encephalopathy Propofol/fentanyl for sedation/analgesia while intubated Goal of RASS -2 Daily sedation vacation Continue Abilify 15 mill grams daily, BuSpar 5 mill grams daily and Paxil 30 mg daily home medications for depression/anxiety Continue Lyrica 100 mg by mouth 3 times a day for peripheral neuropathy CV: Hypertensive emergency Coronary artery disease status post stent 3 Dyslipidemia Home medications Lopressor 20 mg twice a day, Norvasc 10 mg daily and hydralazine 50 mg twice a day continue. We will also restart losartan 25 mg daily As needed labetalol/hydralazine/Nitropaste EKG revealed sinus tachycardia with normal CT/QRS intervals. ST T changes in V5 and V6. CPK/troponin pending Echocardiogram ordered for hypertensive heart disease Resp: Acute hypercapnic hypoxemic respiratory failure COPD ACV 14/550/5/40 Ventilator bundle Bronchodilator therapy every 4 hours and as needed Solu-Medrol 40 iv every 8 hours Pulmicort twice a day Spontaneous breathing trials daily On Advair 250/50 one inhalation twice a day with Atrovent 4 times a day and ProAir 2 puffs every 4 6 hours when necessary. GI: Gastroesophageal reflux disease Diabetic gastroparesis Morbid obesity OGT to LIWS Protonix for GI prophylaxis. On Zantac 150 mg twice a day at home Colace/as needed Senokot for bowel regimen Follow-up on hepatic profile : Shah will be placed for accurate I's nose any critically ill patient Endo: Diabetes mellitus with neuropathy and gastroparesis Chronic prednisone use Home medications Levemir 30 units twice a day with Novulog sliding scale. Currently Accu-Cheks every 6 hours/median protocol. Titrate to keep blood sugars euglycemic Continue Solu-Medrol consider prednisone Renal: History of chronic kidney disease Follow-up on BMP Heme: Leukocytosis Anemia Follow-up on CBC and coags ID: Check blood cultures 2, sputum and urine. Check influenza Empirically treated with Zosyn/Zithromax. FEN: Replace electrolytes as clinically indicated MSK: PT evaluate and treat Access - Utilize peripheral IV. Central line if indicated Prophylaxis - GI - Protonix - DVT - SCD/heparin subcutaneous Critical Care: The total critical care time was 35 minutes. Time to perform other separately billable procedures was not included in the critical care time. Carlos Eduardo Jones MD March 15, 2017 07:41
[2017-03-15] MEDS: CHLORHEXIDINE 0.12% (ORAL KIT) 15 ML CUP MT SCH ×2 (08:00→19:39)
[2017-03-15] MEDS: PANTOPRAZOLE SODIUM 40 MG VIAL IV SCH (08:42)
[2017-03-15] MEDS: PREGABALIN 100 MG CAP PO SCH ×4 (08:43→17:13)
[2017-03-15] MEDS: METOPROLOL TARTRATE 100 MG TAB PO SCH ×2 (08:43→19:38)
[2017-03-15] MEDS: PARoxetine HCL 20 MG TAB PO SCH (08:43)
[2017-03-15] MEDS: ARIPiprazole 15 MG TAB PO SCH (08:43)
[2017-03-15] MEDS: HEPARIN SODIUM - SQ 10,000 UNITS/ML VIAL SQ SCH ×2 (08:43→19:38)
[2017-03-15] MEDS: busPIRone HCL 5 MG TAB PO SCH (08:43)
[2017-03-15] MEDS: hydrALAZINE HCL 50 MG TAB PO SCH ×2 (08:44→19:37)
[2017-03-15] MEDS: SODIUM CHLORIDE 0.9% FLUSH 10 ML FLUSH IV FLUSH SCH ×2 (08:44→19:38)
[2017-03-15] MEDS: DOCUSATE SODIUM 100 MG/10 ML UDC G-TUBE SCH ×2 (08:44→19:36)
[2017-03-15] MEDS: INSULIN DETEMIR 100 UNITS/ML VIAL SQ SCH ×2 (08:45→19:46)
[2017-03-15] MEDS: hydrALAZINE HCL 20 MG/ML VIAL IV PUSH PRN ×2 (10:17→17:13)
[2017-03-15] MEDS: DOXYCYCLINE 100 MG/NS 100 ML IV SCH ×4 (10:18→19:37)
--- NOTE | 2017-03-15 10:35 | EC ---
Study Study Date:03/15/2017 STUDY CONCLUSIONS SUMMARY - Left ventricle: The cavity size was normal. Wall thickness was normal. Systolic function was mildly reduced. The estimated ejection fraction was in the range of 45% to 50%. Wall motion was normal; there were no regional wall motion abnormalities. - Aortic valve: Mild to moderate regurgitation. - Mitral valve: Mild regurgitation. - Tricuspid valve: Mild regurgitation. If LV function is below 40, please consider prescribing an ACEI or ARB or document rationale for non-use. PROCEDURE DATA STUDY STATUS: Elective. Procedure: Transthoracic echocardiography. Image quality was good. Scanning was performed from the parasternal, apical, and subcostal acoustic windows. Study completion: The patient tolerated the procedure well. Transthoracic echocardiography. M-mode, complete 2D, complete spectral Doppler, and color Doppler. Height: Height: 66in. Weight: Weight: 179.6lb. Body mass index: BMI: 29.1kg/m^2. Body surface area: BSA: 1.91m^2. Patient status: Inpatient. CARDIAC ANATOMY LEFT VENTRICLE: The cavity size was normal. Wall thickness was normal. Systolic function was mildly reduced. The estimated ejection fraction was in the range of 45% to 50%. Wall motion was normal; there were no regional wall motion abnormalities. AORTIC VALVE: Trileaflet; normal thickness leaflets. Doppler: Transvalvular velocity was within the normal range. There was no stenosis. Mild to moderate regurgitation. Peak gradient: 13mm Hg (S). AORTA: Aortic root: The aortic root was normal in size. MITRAL VALVE: Structurally normal valve. Doppler: Transvalvular velocity was within the normal range. There was no evidence for stenosis. Mild regurgitation. Valve area by pressure half-time: 5.79cm^2. Indexed valve area by pressure half-time: 3.03cm^2/m^2. Peak gradient: 8mm Hg (D). LEFT ATRIUM: The atrium was normal in size. RIGHT VENTRICLE: The cavity size was normal. Wall thickness was normal. PULMONIC VALVE: Doppler: Transvalvular velocity was within the normal range. There was no evidence for stenosis. No regurgitation. TRICUSPID VALVE: Structurally normal valve. Doppler: Transvalvular velocity was within the normal range. Mild regurgitation. Peak gradient: 18mm Hg (D). PULMONARY ARTERY: The main pulmonary artery was normal-sized. Systolic pressure was within the normal range. RIGHT ATRIUM: The atrium was normal in size. PERICARDIUM: There was no pericardial effusion. SYSTEMIC VEINS: Inferior vena cava: The vessel was normal in size. Patient weight: 179.6lb _Ejection fraction:_ 65-75% _Fractional shortening:_ 32% up to 5Kg 5-11.5Kg 11.6-22.9Kg 23-45Kg 45-57Kg Aortic Root 7-13 <17 13-22 17-27 17-27 LA diam 6-13 <23 24-38 33-47 37-40 RVID 10-17 7-15 7-15 7-18 8-17 LVIDd 12-22 <32 24-38 33-47 37-40 LVPW 2-4 3-6 5-7 6-8 7-8 IVS 2-4 3-6 5-7 6-8 7-8 BASIC MEASUREMENTS ADULT NORMAL Left ventricle LV internal dimension, ED, chordal *42.6 mm 43-52 level, PLAX LV internal dimension, ES, chordal 34.9 mm 23-38 level, PLAX Fractional shortening, chordal level, *18 % >29 PLAX LV posterior wall thickness, ED 16 mm IVS/LVPW ratio, ED 1.01 <1.3 Volume, ED, MOD, 1-plane 160 ml Volume, ES, MOD, 1-plane 99 ml Ejection fraction, MOD, 1-plane 38 % Stroke volume, MOD, 1-plane 61 ml Volume index, ED, MOD, 1-plane 84 ml/m^2 Volume index, ES, MOD, 1-plane 52 ml/m^2 Stroke index, MOD, 1-plane 31.9 ml/m^2 Ventricular septum Septal thickness, ED 16.1 mm Aortic valve Leaflet separation 21 mm 15-26 Left atrium Anterior-posterior dimension 38 mm Anterior-posterior dimension index 1.99 cm/m^2 <2.2 Right ventricle RV internal dimension, ED, PLAX 22.5 mm 19-38 BASIC MEASUREMENTS ADULT NORMAL Aortic valve Leaflet separation 21 mm 15-26 Aorta Root diameter, ED 31 mm 20-37 Left atrium Anterior-posterior dimension, ES 40 mm 19-40 Anterior-posterior dimension index, ES 2.09 cm/m^2 <2.2 LA/aortic root ratio 1.29 DOPPLER MEASUREMENTS ADULT NORMAL Aortic valve Peak velocity, S 181 cm/s Peak gradient, S 13 mm Hg Regurgitant velocity, ED 459 cm/s Regurgitant deceleration 3950 cm/s^2 Regurgitant pressure half-time 340 ms Regurgitant gradient, ED 84 mm Hg Mitral valve Peak E-wave velocity 138 cm/s Peak A-wave velocity 110 cm/s Pressure half-time 38 ms Peak gradient, D 8 mm Hg Peak E/A ratio 1.3 Valve area, pressure half-time 5.79 cm^2 Valve area index, pressure half-time 3.03 cm^2/m^2 Tricuspid valve Peak gradient, D 18 mm Hg Maximal inflow velocity 184 cm/s Pulmonic valve Peak velocity, S 117 cm/s Acceleration time 377 ms LEGEND: Mean values are shown as u=mean value. Asterisk (*) metzger values outside specified normal range. Prepared and signed by Hoang Finch [id number]
[2017-03-15 13:12] LABS: BETA HCG QUANT LESS THAN 1 MIU/ML (0-5)
[2017-03-15] MEDS: NICOTINE 21 MG/24 HR PATCH T-DERMAL SCH (13:13)
[2017-03-15] MEDS: ACETAMINOPHEN/HYDROcodone 325 MG/10 MG TAB PO PRN ×2 (15:28→20:42)
[2017-03-15] MEDS ORDERED: LOSARTAN 25 MG TAB PO ONE (17:00)
--- NOTE | 2017-03-15 21:42 | EKG ---
Date Performed: 03/14/2017 Time Performed: 17:02:08 PTAGE: 51 years EKG: SINUS TACHYCARDIA NONSPECIFIC ST & T-WAVE ABNORMALITY ABNORMAL RHYTHM ECG PREVIOUS TRACING : 02/05/2017 07.26 Compared to prior tracing no significant change DOCTOR: Yamil Layne Interpretating Date/Time 03/15/2017 21:40:13
[2017-03-16] VITALS (13 sets, daily range): BP systolic 121–183; BP diastolic 58–84; PULSE 70–92; RESP 12–25; TEMP 97.8–98.8; O2SAT 96–100
[2017-03-16] MEDS: CHLORHEXIDINE GLUCONATE 2 % 1 PACK (2 CLOTHS) TOP SCH (02:59)
[2017-03-16] MEDS: hydrALAZINE HCL 20 MG/ML VIAL IV PUSH PRN ×2 (02:59→14:51)
[2017-03-16] MEDS: PIPERACIL-TAZO 4.5 GM PREMIX 100 ML IV SCH ×3 (02:59→21:41)
[2017-03-16] MEDS: RESP: ALBUTEROL 2.5 MG/IPRATROPIUM 0.5 MG NEB (SCH) INH ×5 (03:49→20:36)
[2017-03-16] MEDS: methylPREDNISolone SOD SUCC 40 MG/1 ML VIAL IV PUSH SCH ×2 (04:56→21:41)
[2017-03-16] MEDS: INSULIN NovoLIN REGULAR SUPPLEMENTAL SCALE SQ SCH ×4 (04:57→21:00)
[2017-03-16] MEDS: ACETAMINOPHEN/HYDROcodone 325 MG/10 MG TAB PO PRN ×3 (04:58→19:39)
--- NOTE | 2017-03-16 05:47 | RADRPT ---
EXAM DATE/TIME: 03/16/2017 03:47 [place] COMPARISON: CHEST SINGLE AP, March 14, 2017, 17:03. INDICATIONS : Shortness of breath, possible pulmonary disease. MEDICAL HISTORY : Asthma SURGICAL HISTORY : Fusion, cervical. ENCOUNTER: Subsequent ACUITY: 3 days PAIN SCORE: Non-responsive. LOCATION: Bilateral chest FINDINGS: A single view of the chest demonstrates previous fusion cervical spine. Mild basilar airspace disease slightly improved from March 14. Questionable small effusions. Heart size upper limits normal. CONCLUSION: 1. Basilar airspace disease slightly improved since March 14. Possible small effusions. Robert Elliott MD on March 16, 2017 at 5:45 Board Certified Radiologist. This report was verified electronically.
[2017-03-16 06:29] LABS: BASOPHIL % 0.3 % (0.0-2.0); HEMATOCRIT 33.2 % (35.0-46.0); HEMO FLAGS DIFF FINAL; LYMPH % 11.7 % (9.0-44.0); LYMPHOCYTE # 1.4 TH/MM3 (1.0-4.8); MEAN CELL VOLUME 82.1 FL (80.0-100.0); MEAN CORPUSCULAR HEMOGLOBIN 26.7 PG (27.0-34.0); MEAN CORPUSCULAR HGB CONC 32.5 % (32.0-36.0); MONO % 2.2 % (0.0-8.0); NEUT % 85.8 % (16.0-70.0); PLATELET COUNT 259 TH/MM3 (150-450); RED BLOOD COUNT 4.04 MIL/MM3 (4.00-5.30); RED CELL DISTRIBUTION WIDTH 14.3 % (11.6-17.2); WHITE BLOOD COUNT 11.7 TH/MM3 (4.0-11.0)
[2017-03-16 06:50] LABS: BICARBONATE 25.9 MEQ/L (21.0-32.0); POTASSIUM 3.5 MEQ/L (3.5-5.1)
[2017-03-16] MEDS: CHLORHEXIDINE 0.12% (ORAL KIT) 15 ML CUP MT SCH ×2 (08:00→20:00)
[2017-03-16] MEDS: RESP: BUDESONIDE 0.5 MG/2 ML NEB NEB SCH ×2 (08:47→20:36)
[2017-03-16] MEDS: INSULIN DETEMIR 100 UNITS/ML VIAL SQ SCH ×2 (09:00→21:40)
[2017-03-16] MEDS: SODIUM CHLORIDE 0.9% FLUSH 10 ML FLUSH IV FLUSH SCH ×2 (09:00→21:42)
[2017-03-16] MEDS: REMOVE OLD PATCH T-DERMAL SCH (09:00)
[2017-03-16] MEDS: hydrALAZINE HCL 50 MG TAB PO SCH ×3 (10:14→21:45)
[2017-03-16] MEDS: PARoxetine HCL 20 MG TAB PO SCH (10:14)
[2017-03-16] MEDS: METOPROLOL TARTRATE 100 MG TAB PO SCH ×2 (10:14→21:42)
[2017-03-16] MEDS: ASPIRIN EC 81 MG TABEC PO SCH (10:15)
[2017-03-16] MEDS: ARIPiprazole 15 MG TAB PO SCH (10:15)
[2017-03-16] MEDS: LOSARTAN 25 MG TAB PO SCH (10:15)
[2017-03-16] MEDS: busPIRone HCL 5 MG TAB PO SCH (10:15)
[2017-03-16] MEDS: PANTOPRAZOLE SODIUM 40 MG VIAL IV SCH (10:16)
[2017-03-16] MEDS: HEPARIN SODIUM - SQ 10,000 UNITS/ML VIAL SQ SCH ×2 (10:16→21:42)
[2017-03-16] MEDS: NICOTINE 21 MG/24 HR PATCH T-DERMAL SCH (10:20)
--- NOTE | 2017-03-16 12:15 | HHI.CCPN ---
Subjective Remarks/Hospital Course This is a 51-year-old female. Date of admission 03/14/2017. Past medical history includes a CVA 3, ongoing tobaccoism of COPD, dyslipidemia , hypertension, gastroesophageal reflux disease, history of or a disease with 3 stents placed in 2009, diabetes mellitus with peripheral neuropathy, gastroparesis, depression/anxiety, sickle cell trait, seizure disorder. Patient was in her usual state of health when [facility] was notified due to sudden increase of shortness of breath. She remained quite hypertensive which resulted in intubation in the ED by Dr. Hsu with a 7.5 ET tube after receiving 20 mg etomidate and 100 mg succinylcholine. Chest x-ray revealed hyperinflated lungs with possible right lower lobe infiltrate. 03/15: Resting in bed. Appears comfortable on ventilation. FiO2 40%. Hemodynamically stable likely hypertensive. Subjective 03/16: Extubated yesterday without competition. Currently on room air. Planing pain in her right lower quadrant/muscle skeletal/muscle strain from coughing. Tolerating meals. Objective Vital Signs Date Time Temp Pulse Resp B/P Pulse Ox O2 Delivery O2 Flow Rate FiO2 03/16/17 08:47 99 21 03/16/17 06:00 82 03/16/17 04:00 98.8 12 146/65 03/15/17 20:05 Nasal Cannula 3.00 Intake and Output 03/15/17 03/15/17 03/16/17 08:00 16:00 00:00 Intake Total 373 ml 829 ml 418 ml Output Total 600 ml 175 ml 375 ml Balance -227 ml 654 ml 43 ml Result Diagram: 03/16/17 0608 03/16/17 0608 Other Results Microbiology Date/Time Procedure Status Source Growth 03/14/17 23:30 Gram Stain - Final Resulted Sputum Endotracheal 03/14/17 23:30 Sputum Culture - Preliminary Resulted Sputum Endotracheal HEAVY GROWTH NORMAL RESPIRATORY QUIN... 03/14/17 19:15 Aerobic Blood Culture - Preliminary Resulted Blood Peripheral NO GROWTH IN 2 DAYS 03/14/17 19:15 Anaerobic Blood Culture - Preliminary Resulted Blood Peripheral NO GROWTH IN 2 DAYS 03/14/17 14:20 Influenza Types A,B Antigen (SANYA) - Final Complete Nasal Aspirate NEGATIVE FOR FLU A AND B ANTIGEN.... Imaging Last Impressions Chest X-Ray 03/16/17 0600 Signed Impressions: Service Date/Time: Thursday, March 16, 2017 03:47 - CONCLUSION: 1. Basilar airspace disease slightly improved since March 14. Possible small effusions. Robert Elliott MD Objective Remarks GENERAL: 51-year-old AA female, on room air in no acute distress SKIN: Warm and dry. Multiple scars healed located in bilateral lower extremities without erythema HEAD: Atraumatic. Normocephalic. EYES: Pupils equal and round. No scleral icterus. No injection or drainage. ENT: No nasal bleeding or discharge. Mucous membranes pink and moist. NECK: Trachea midline. No JVD. CARDIOVASCULAR: Regular rate and rhythm. S1, S2. No S4. RESPIRATORY: Diminished breath sounds throughout. Positive and extremity wheezes. Breath sounds equal bilaterally. GASTROINTESTINAL: Abdomen soft, non-tender, nondistended. Hyperactive bowel sounds are appreciated. MUSCULOSKELETAL: Extremities without significant peripheral edema. No obvious deformities. NEUROLOGICAL: Awake and alert. No obvious cranial nerve deficits. Moves all 4 extremities spontaneously and to command. Strength is equal symmetric. Normal sensation. A/P Assessment and Plan Neuro/Psych: Depression/anxiety Acute toxic metabolic encephalopathy Continue Abilify 15 mill grams daily, BuSpar 5 mill grams daily and Paxil 30 mg daily home medications for depression/anxiety Continue Lyrica 100 mg by mouth 3 times a day for peripheral neuropathy [place] FOC 25 one tablet every 4 hours when necessary pain/home medication CV: Hypertensive emergency Coronary artery disease status post stent 3 Dyslipidemia Home medications Lopressor 100 mg twice a day, Norvasc 10 mg daily and hydralazine 50 mg twice a day continue. -> Increase hydralazine to 3 times a day Yesterday restarted losartan 25 mg daily As needed hydralazine/Nitropaste EKG revealed sinus tachycardia with normal [place]/QRS intervals. ST T changes in V5 and V6. CPK/troponin negative Echocardiogram ef of 45% to 50%. Wall motion was normal; there were no regional wall motion abnormalities. - Aortic valve: Mild to moderate regurgitation. - Mitral valve: Mild regurgitation. - Tricuspid valve: Mild regurgitation. Resp: Acute hypercapnic hypoxemic respiratory failure COPD Currently on room air Duo nebs every 4 hours and as needed Solu-Medrol 40 iv every 12 hours Pulmicort twice a day On Advair 250/50 one inhalation twice a day with Atrovent 4 times a day and ProAir 2 puffs every 4 6 hours when necessary at home. GI: Gastroesophageal reflux disease Diabetic gastroparesis Morbid obesity ADA diet Protonix for GI prophylaxis. On Zantac 150 mg twice a day at home Colace/as needed Senokot for bowel regimen : This continue Shah Endo: Diabetes mellitus with neuropathy and gastroparesis Chronic prednisone use Home medications Levemir 30 units twice a day with Novulog sliding scale. Currently Accu-Cheks every before meals/at bedtime Increase Levemir 12 units twice a day Renal: History of chronic kidney disease Creatinine currently within normal limits Accurate I's and O's Heme: Leukocytosis Anemia Follow-up CBC in a.m. ID: No growth to date on blood cultures 2, sputum and urine. Check influenza Empirically treated with Zosyn/Zithromax. FEN: Replace electrolytes as clinically indicated MSK: PT evaluate and treat Access - Utilize peripheral IV. Central line if indicated Prophylaxis - GI - Protonix - DVT - SCD/heparin subcutaneous Critical Care: The total care time was 35 minutes. Time to perform other separately billable procedures was not included in the critical care time. Patient is stable from a critical care medicine standpoint. We'll assign care to hospitalist in a.m. 03/17. Transfer to floor Carlos Eduardo Jones MD March 16, 2017 12:15
--- NOTE | 2017-03-16 12:18 | PD.TRANSFR ---
Transfer Summary Admission Date March 14, 2017 at 17:36 Transfer Date: March 16, 2017 Admitting Diagnosis Respiratory failure, copd, diabetes mellitus Diagnoses: (1) Malignant essential hypertension Diagnosis: Principal (2) COPD (chronic obstructive pulmonary disease) Diagnosis: Principal (3) BMI 29.0-29.9,adult Diagnosis: Principal (4) COPD exacerbation Diagnosis: Principal (5) Respiratory failure, acute Diagnosis: Principal (6) Diabetes mellitus Diagnosis: Principal (7) GERD (gastroesophageal reflux disease) Diagnosis: Principal Significant Findings Echocardiogram ejection fraction 45-50%. No regional wall motion abnormality. Transfer Summary/Subjective This is a 51-year-old female. Admitted with acute hypoxemic hypercapnic respiratory failure likely secondary to COPD. Extubated 12 hours after intubation. Currently in room air. Objective Vital Signs Date Time Temp Pulse Resp B/P Pulse Ox O2 Delivery O2 Flow Rate FiO2 03/16/17 08:47 99 21 03/16/17 06:00 82 03/16/17 04:00 98.8 12 146/65 03/15/17 20:05 Nasal Cannula 3.00 Intake and Output 03/15/17 03/15/17 03/16/17 08:00 16:00 00:00 Intake Total 373 ml 829 ml 418 ml Output Total 600 ml 175 ml 375 ml Balance -227 ml 654 ml 43 ml Result Diagram: 03/16/17 0608 03/16/17 0608 Other Results Microbiology Date/Time Procedure Status Source Growth 03/14/17 14:20 Influenza Types A,B Antigen (SANYA) - Final Complete Nasal Aspirate NEGATIVE FOR FLU A AND B ANTIGEN.... Imaging Last Impressions Chest X-Ray 03/16/17 0600 Signed Impressions: Service Date/Time: Thursday, March 16, 2017 03:47 - CONCLUSION: 1. Basilar airspace disease slightly improved since March 14. Possible small effusions. Robert Elliott MD Objective Remarks GENERAL: 51-year-old AA female, on room air in no acute distress SKIN: Warm and dry. Multiple scars healed located in bilateral lower extremities without erythema HEAD: Atraumatic. Normocephalic. EYES: Pupils equal and round. No scleral icterus. No injection or drainage. ENT: No nasal bleeding or discharge. Mucous membranes pink and moist. NECK: Trachea midline. No JVD. CARDIOVASCULAR: Regular rate and rhythm. S1, S2. No S4. RESPIRATORY: Diminished breath sounds throughout. Positive and extremity wheezes. Breath sounds equal bilaterally. GASTROINTESTINAL: Abdomen soft, non-tender, nondistended. Hyperactive bowel sounds are appreciated. MUSCULOSKELETAL: Extremities without significant peripheral edema. No obvious deformities. NEUROLOGICAL: Awake and alert. No obvious cranial nerve deficits. Moves all 4 extremities spontaneously and to command. Strength is equal symmetric. Normal sensation. A/P Assessment and Plan Neuro/Psych: Depression/anxiety Acute toxic metabolic encephalopathy Continue Abilify 15 mill grams daily, BuSpar 5 mill grams daily and Paxil 30 mg daily home medications for depression/anxiety Continue Lyrica 100 mg by mouth 3 times a day for peripheral neuropathy [place] FOC 25 one tablet every 4 hours when necessary pain/home medication CV: Hypertensive emergency Coronary artery disease status post stent 3 Dyslipidemia Home medications Lopressor 100 mg twice a day, Norvasc 10 mg daily and hydralazine 50 mg twice a day continue. -> Increase hydralazine to 3 times a day Yesterday restarted losartan 25 mg daily As needed hydralazine/Nitropaste EKG revealed sinus tachycardia with normal [place]/QRS intervals. ST T changes in V5 and V6. CPK/troponin negative Echocardiogram ef of 45% to 50%. Wall motion was normal; there were no regional wall motion abnormalities. - Aortic valve: Mild to moderate regurgitation. - Mitral valve: Mild regurgitation. - Tricuspid valve: Mild regurgitation. Resp: Acute hypercapnic hypoxemic respiratory failure COPD Currently on room air Duo nebs every 4 hours and as needed Solu-Medrol 40 iv every 12 hours Pulmicort twice a day On Advair 250/50 one inhalation twice a day with Atrovent 4 times a day and ProAir 2 puffs every 4 6 hours when necessary at home. GI: Gastroesophageal reflux disease Diabetic gastroparesis Morbid obesity ADA diet Protonix for GI prophylaxis. On Zantac 150 mg twice a day at home Colace/as needed Senokot for bowel regimen : This continue Shah Endo: Diabetes mellitus with neuropathy and gastroparesis Chronic prednisone use Home medications Levemir 30 units twice a day with Novulog sliding scale. Currently Accu-Cheks every before meals/at bedtime Increase Levemir 12 units twice a day Renal: History of chronic kidney disease Creatinine currently within normal limits Accurate I's and O's Heme: Leukocytosis Anemia Follow-up CBC in a.m. ID: No growth to date on blood cultures 2, sputum and urine. Check influenza Empirically treated with Zosyn/Zithromax. FEN: Replace electrolytes as clinically indicated MSK: PT evaluate and treat Access - Utilize peripheral IV. Central line if indicated Prophylaxis - GI - Protonix - DVT - SCD/heparin subcutaneous Critical Care: The total care time was 35 minutes. Time to perform other separately billable procedures was not included in the critical care time. Patient is stable from a critical care medicine standpoint. We'll assign care to hospitalist in a.m. 03/17. Transfer to floor Carlos Eduardo Jones MD March 16, 2017 12:18
[2017-03-16] MEDS: DOXYCYCLINE 100 MG/NS 100 ML IV SCH ×4 (12:37→21:42)
[2017-03-16] MEDS: PREGABALIN 100 MG CAP PO SCH ×3 (12:38→16:16)
[2017-03-16] MEDS ORDERED: POTASSIUM CHLORIDE 10 MEQ CONTROLLED RELEASE TAB PO ONE (12:45)
[2017-03-16] MEDS: SENNOSIDES 8.6 MG TAB PO SCH (21:42)
[2017-03-16] MEDS: DOCUSATE SODIUM 100 MG CAP PO SCH (21:42)
[2017-03-16] MEDS: PRAVASTATIN SOD 20 MG TAB PO SCH (21:42)
[2017-03-17] VITALS (8 sets, daily range): BP systolic 132–155; BP diastolic 61–84; PULSE 73–97; RESP 18–22; TEMP 96.8–98.4; O2SAT 96–98
[2017-03-17] MEDS: RESP: ALBUTEROL 2.5 MG/IPRATROPIUM 0.5 MG NEB (SCH) INH ×6 (00:43→19:36)
[2017-03-17] MEDS: PIPERACIL-TAZO 4.5 GM PREMIX 100 ML IV SCH ×2 (03:51→12:23)
[2017-03-17] MEDS: ACETAMINOPHEN/HYDROcodone 325 MG/10 MG TAB PO PRN ×3 (03:51→16:56)
[2017-03-17] MEDS: CHLORHEXIDINE GLUCONATE 2 % 1 PACK (2 CLOTHS) TOP SCH (04:00)
[2017-03-17] MEDS: hydrALAZINE HCL 50 MG TAB PO SCH ×3 (05:29→21:47)
[2017-03-17] MEDS: INSULIN NovoLIN REGULAR SUPPLEMENTAL SCALE SQ SCH ×4 (05:31→21:44)
[2017-03-17] MEDS: CHLORHEXIDINE 0.12% (ORAL KIT) 15 ML CUP MT SCH ×2 (08:00→20:00)
[2017-03-17] MEDS: RESP: BUDESONIDE 0.5 MG/2 ML NEB NEB SCH ×2 (08:12→19:36)
[2017-03-17] MEDS: REMOVE OLD PATCH T-DERMAL SCH (09:00)
--- NOTE | 2017-03-17 09:21 | PD.CONS ---
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 [facility], when she initially presented she was profoundly hypertensive and in respiratory distress. She subsequently required emergent intubation in the ER and was transferred to the ICU for critical care. Patient was extubated 03/16 and has now been maintaining saturations on room air for >24 hrs. States she is at 50% of her baseline. (Harrison Roa MD R3) Review of Systems Constitutional: COMPLAINS OF: Fatigue, DENIES: Fever, Chills Eyes: DENIES: Blurred vision Respiratory: COMPLAINS OF: Shortness of breath, DENIES: Wheezing Cardiovascular: DENIES: Chest pain Gastrointestinal: DENIES: Abdominal pain Neurologic: DENIES: Headache, Seizures Psychiatric: DENIES: Confusion (Harrison Roa MD R3) Past Family Social History Past Medical History Diabetes Hypertension [place] in 2011 Diabetic sensory neuropathy Chronic pain Seizures COPD HLD Past Surgical History Total hysterectomy year 1999 Cholecystectomy Left arm and tumor removal Neck fusion Reported Medications Reported Meds & Active Scripts Active Albuterol Neb (Albuterol Sulfate) 2.5 Mg/3 Ml Neb 2.5 Mg NEB Q4HR NEB PRN Fluticasone Nasal [place] 50 Mcg/Act Naspr 50 Mcg EACH NARE DAILY 50 mcg/spray Atrovent HFA 12.9 GM Inh (Ipratropium [place]) 17 Mcg/Act Aer 2 Puff INH QID B-D Insulin Syringe Ultra 31G X 5/16" 1 ml 1 Mis Mis 1 Ea .ROUTE DIRECTED Hydrocodone-Acetaminophen 10-325 mg Tab 1 Tab PO Q4-6HR PRN Losartan (Losartan Potassium) 25 Mg Tab 25 Mg PO DAILY Zofran (Ondansetron HCl) 4 Mg Tab 4 Mg PO Q8HR PRN Levemir Inj (Insulin Detemir) 1,000 unit/ 10 ML Vial 30 Units SQ BID Do not mix with any other Insulin. Paroxetine (Paroxetine HCl) 30 Mg Tab 30 Mg PO DAILY Amlodipine (Amlodipine Besylate) 10 Mg Tab 10 Mg PO DAILY Buspirone (Buspirone HCl) 5 Mg Tab 5 Mg PO DAILY Hydralazine (Hydralazine HCl) 50 Mg Tab 50 Mg PO BID Take with a meal Ibuprofen 800 Mg Tab 800 Mg PO TID Nebulizer 1 Mis Mis 1 Ea .ROUTE DIRECTED Use with albuterol every 4 hours as needed for shortness of breath, wheezing. Aspirin 81 (Aspirin) 81 Mg Tabdr 81 Mg PO EVERY OTHER DAY Metoprolol Tartrate 100 Mg Tab 100 Mg PO BID Lovastatin 20 Mg Tab 20 Mg PO HS Prednisone 50 Mg Tab 50 Mg PO DAILY 5 Days Novolog Inj (Insulin Aspart) 1,000 Unit/10 Ml Vial 0-25 Units SQ ACHS Max dose at bedtime:( )units; sugars less than 70,(0) units; sugars 150-199,(5) units; sugars 200-249,(10) units; sugars 250-299,(15) units; sugars 300-349,(20)units; sugars greater than 349,(25)units Lyrica (Pregabalin) 100 Mg Cap 100 Mg PO TID Proair Hfa 8.5 GM Inh (Albuterol Sulfate) 90 Mcg/Act Aer 2 Puff INH Q4-6H PRN 108 mcg/actuation Advair Diskus Inh (Fluticasone-Salmeterol Inh) 250-50 Mcg/Blist Aer 1 Puff INH BID Rinse mouth after use. Reported Hydroxyzine Pamoate 50 Mg Cap 50 Mg PO BID PRN Abilify (Aripiprazole) 15 Mg Tab 15 Mg PO DAILY Ranitidine (Ranitidine HCl) 150 Mg Tab 150 Mg PO BID Tizanidine (Tizanidine HCl) 4 Mg Tab 4 Mg PO QID (Harrsion Roa MD R3) Allergies: Coded Allergies: Cipro (Verified Allergy, Severe, SWELLING SOB, 02/19/17) Erythromycin (Verified Allergy, Severe, SWELLING SOB, 02/19/17) Tramadol (Verified Allergy, Severe, rash, 02/19/17) Vancomycin (Verified Allergy, Severe, SWELLING AND SOB, 02/19/17) *MDRO Multi-Drug Resistant Organism (Verified Adverse Reaction, Unknown, ) 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) Family History Denies significant Social History Smoking: One pack per day smoker for 40 years, currently trying to quit, on Chantix, down to 1/2 PPD Alcohol: Denies alcohol use Drugs: No illicit drug use Occupation: Patient on disability Living situation: Lives with of 19 years. This is second ; was formerly and has children from previous marriage. Other: Has 7 children all grown in various parts [place] the [place] (Harrison Roa MD R3) Physical Exam Vital Signs Vital Signs Date Time Temp Pulse Resp B/P Pulse Ox O2 Delivery O2 Flow Rate FiO2 03/17/17 04:00 Room Air 03/17/17 04:00 96.8 73 18 151/84 98 03/17/17 01:06 97.8 97 18 132/61 03/17/17 00:00 Room Air 03/16/17 20:30 98.1 70 18 129/74 96 03/16/17 20:00 71 03/16/17 20:00 Room Air 03/16/17 17:30 97.8 76 20 121/58 96 03/16/17 16:00 81 03/16/17 16:00 98.5 81 19 147/79 98 03/16/17 14:00 80 03/16/17 12:00 85 03/16/17 12:00 98.4 85 25 164/79 99 03/16/17 10:00 86 Physical Exam GENERAL: This is a well-nourished, well-developed patient, sitting up in hospital bed, not on O2. SKIN: No rashes, ecchymoses or lesions. Cool and dry. HEAD: Atraumatic. Normocephalic. EYES: Extraocular motions intact. No scleral icterus. No injection or drainage. ENT: Airway patent. NECK: No lymphadenopathy. Supple, nontender CARDIOVASCULAR: Regular rate and rhythm without murmurs, gallops, or rubs. RESPIRATORY: Clear to auscultation. Breath sounds equal bilaterally. No wheezes , rales, or rhonchi. GASTROINTESTINAL: Abdomen soft, non-tender, nondistended. No hepato-splenomegaly , or palpable masses. No guarding. MUSCULOSKELETAL: Extremities without edema. No calf tenderness. Negative Homans sign bilaterally. NEUROLOGICAL: Awake and alert. Cranial nerves II through XII intact. Motor and sensory grossly within normal limits. Five out of 5 muscle strength in all muscle groups. Normal speech. Laboratory Date/Time Procedure Status Source Growth 03/14/17 23:30 Gram Stain - Final Resulted Sputum Endotracheal 03/14/17 23:30 Sputum Culture - Preliminary Resulted Sputum Endotracheal HEAVY GROWTH NORMAL RESPIRATORY QUIN... 03/14/17 19:15 Aerobic Blood Culture - Preliminary Resulted Blood Peripheral NO GROWTH IN 2 DAYS 03/14/17 19:15 Anaerobic Blood Culture - Preliminary Resulted Blood Peripheral NO GROWTH IN 2 DAYS 03/14/17 14:20 Influenza Types A,B Antigen (SANYA) - Final Complete Nasal Aspirate NEGATIVE FOR FLU A AND B ANTIGEN.... (Harrison Roa MD R3) Result Diagram: 03/16/17 0608 03/16/17 0608 Imaging Last Impressions Chest X-Ray 03/16/17 0600 Signed Impressions: Service Date/Time: Saturday, March 16, 2017 03:47 - CONCLUSION: 1. Basilar airspace disease slightly improved since March 14. Possible small effusions. Robert Elliott MD (Harrison Roa MD R3) Assessment and Plan Assessment and Plan 51 year old female presented w/ respiratory distress requiring emergent intubation. Now transitioning out of ICU to medical floor. PLAN Neuro/Psych: Depression/anxiety Acute toxic metabolic encephalopathy Continue Abilify 15 mill grams daily, BuSpar 5 mill grams daily and Paxil 30 mg daily home medications for depression/anxiety Continue Lyrica 100 mg by mouth 3 times a day for peripheral neuropathy [place] FOC 25 one tablet every 4 hours when necessary pain/home medication CV: Resistant Hypertension Coronary artery disease status post stent 3 Dyslipidemia BP: Lopressor 20 mg BID, Norvasc 10 mg daily, hydralazine 50 mg TID and Losartan 25mg daily. Clonidine prn BP >170/100. EKG revealed sinus tachycardia with normal [place]/QRS intervals. ST T changes in V5 and V6. CPK/troponin negative Echocardiogram ef of 45% to 50%. Wall motion was normal; there were no regional wall motion abnormalities. - Aortic valve: Mild to moderate regurgitation. - Mitral valve: Mild regurgitation. - Tricuspid valve: Mild regurgitation. Resp: Acute hypercapnic hypoxemic respiratory failure COPD Exact etiology of acute exacerbation unclear, overall symptoms improving Currently on room air Duo nebs every 4 hours and as needed Solu-Medrol 40 iv every 12 hours Pulmicort twice a day On Advair 250/50 one inhalation twice a day with Atrovent 4 times a day and ProAir 2 puffs every 4-6 hours when necessary at home. Will obtain VQ scan to eval for resolving PE GI: Gastroesophageal reflux disease Diabetic gastroparesis Morbid obesity ADA diet Protonix for GI prophylaxis. On Zantac 150 mg twice a day at home Colace/as needed Senokot for bowel regimen : Catheter discontinued Endo: Diabetes mellitus with neuropathy and gastroparesis Chronic prednisone use Home medications Levemir 30 units twice a day with Novolog sliding scale. Currently Accu-Cheks every before meals/at bedtime Levemir 12 units twice a day Renal: History of chronic kidney disease Creatinine currently within normal limits Accurate I's and O's Heme: Leukocytosis Anemia Follow-up CBC in a.m. ID: No growth to date on blood cultures 3, sputum culture showed no growth Check influenza Empirically treated with Zosyn and IV Doxycycline -> Transition to PO Doxycycline at this time FEN: Replace electrolytes as clinically indicated MSK: PT evaluate and treat Access - Utilize peripheral IV. Prophylaxis - GI - Protonix - DVT - SCD/heparin subcutaneous Code Status Full Code Discussed Condition With sdw Dr. Allyson MD (Harrison Roa MD R3) Attending Attestation Patient seen and examined. Case reviewed and discussed with the resident team. Agree with plan of care as discussed with me and documented in the resident note. (Susan Valadez MD) Problem List: (1) Respiratory failure, acute Status: Acute (2) Acute encephalopathy Status: Acute (3) CAD (coronary artery disease) Status: Chronic (4) History of CVA (cerebrovascular accident) Status: Chronic (5) Hyperlipidemia Status: Chronic (6) Resistant hypertension Status: Chronic (7) Diabetes mellitus Status: Chronic (8) GERD (gastroesophageal reflux disease) Status: Acute (9) COPD exacerbation Status: Acute (10) HTN (hypertension) Status: Chronic (Harrison Roa MD R3) Problem Qualifiers (1) Respiratory failure, acute: Qualified Code: J96.01 - Acute respiratory failure with hypoxia and hypercapnia (2) CAD (coronary artery disease): Qualified Code: I25.10 - Coronary artery disease due to calcified coronary lesion (3) Diabetes mellitus: Qualified Code: E11.9 - Type 2 diabetes mellitus without complication, with long-term current use of insulin (4) GERD (gastroesophageal reflux disease): Qualified Code: K21.9 - Gastroesophageal reflux disease, esophagitis presence not specified Harrison Roa MD R3 March 17, 2017 09:21 Susan Valadez MD March 18, 2017 12:25
[2017-03-17] MEDS: NICOTINE 21 MG/24 HR PATCH T-DERMAL SCH (10:07)
[2017-03-17] MEDS: FLUTICASONE PROPIONATE 50 MCG/ACT 16 GM NASAL SPRAY EACH NARE SCH (10:09)
[2017-03-17] MEDS: methylPREDNISolone SOD SUCC 40 MG/1 ML VIAL IV PUSH SCH ×2 (10:09→21:38)
[2017-03-17] MEDS: PARoxetine HCL 20 MG TAB PO SCH (10:10)
[2017-03-17] MEDS: SENNOSIDES 8.6 MG TAB PO SCH ×2 (10:10→21:37)
[2017-03-17] MEDS: LOSARTAN 25 MG TAB PO SCH (10:11)
[2017-03-17] MEDS: busPIRone HCL 5 MG TAB PO SCH (10:13)
[2017-03-17] MEDS: PANTOPRAZOLE SOD 40 MG DELAYED RELEASE TAB PO SCH (10:14)
[2017-03-17] MEDS: METOPROLOL TARTRATE 100 MG TAB PO SCH ×2 (10:14→21:38)
[2017-03-17] MEDS: DOCUSATE SODIUM 100 MG CAP PO SCH ×2 (10:14→21:37)
[2017-03-17] MEDS: ARIPiprazole 15 MG TAB PO SCH (10:14)
[2017-03-17] MEDS: PREGABALIN 100 MG CAP PO SCH ×3 (10:14→19:01)
[2017-03-17] MEDS: HEPARIN SODIUM - SQ 10,000 UNITS/ML VIAL SQ SCH ×2 (10:15→21:40)
[2017-03-17] MEDS: SODIUM CHLORIDE 0.9% FLUSH 10 ML FLUSH IV FLUSH SCH ×2 (10:16→21:40)
[2017-03-17] MEDS: INSULIN DETEMIR 100 UNITS/ML VIAL SQ SCH ×2 (10:20→21:43)
[2017-03-17] MEDS: DOXYCYCLINE 100 MG/NS 100 ML IV SCH ×2 (10:25)
[2017-03-17 11:50] LABS: AUTOMATED NEUTROPHIL # 6.1 TH/MM3 (1.8-7.7); BASOPHIL % 0.4 % (0.0-2.0); HEMATOCRIT 34.1 % (35.0-46.0); HEMO FLAGS DIFF FINAL; LYMPH % 31.2 % (9.0-44.0); MEAN CELL VOLUME 83.1 FL (80.0-100.0); MEAN CORPUSCULAR HEMOGLOBIN 26.3 PG (27.0-34.0); MEAN CORPUSCULAR HGB CONC 31.6 % (32.0-36.0); MONO % 4.6 % (0.0-8.0); NEUT % 63.8 % (16.0-70.0); PLATELET COUNT 262 TH/MM3 (150-450); RED CELL DISTRIBUTION WIDTH 14.4 % (11.6-17.2); WHITE BLOOD COUNT 9.6 TH/MM3 (4.0-11.0)
[2017-03-17 12:00] LABS: BICARBONATE 24.9 MEQ/L (21.0-32.0); POTASSIUM 3.7 MEQ/L (3.5-5.1)
[2017-03-17] MEDS: DOXYCYCLINE HYCLATE 100 MG CAP PO SCH (21:00)
[2017-03-17] MEDS: PRAVASTATIN SOD 20 MG TAB PO SCH (21:37)
[2017-03-18] VITALS (9 sets, daily range): BP systolic 156–194; BP diastolic 72–96; PULSE 68–79; RESP 18–20; TEMP 97.9–98.7; O2SAT 94–98
[2017-03-18] MEDS: RESP: ALBUTEROL 2.5 MG/IPRATROPIUM 0.5 MG NEB (SCH) INH ×5 (00:41→15:29)
[2017-03-18] MEDS: ACETAMINOPHEN/HYDROcodone 325 MG/10 MG TAB PO PRN ×4 (00:53→21:45)
[2017-03-18] MEDS: CHLORHEXIDINE GLUCONATE 2 % 1 PACK (2 CLOTHS) TOP SCH (04:00)
[2017-03-18] MEDS: INSULIN NovoLIN REGULAR SUPPLEMENTAL SCALE SQ SCH ×4 (05:58→21:52)
[2017-03-18] MEDS: hydrALAZINE HCL 50 MG TAB PO SCH ×3 (05:59→21:45)
[2017-03-18] MEDS: RESP: BUDESONIDE 0.5 MG/2 ML NEB NEB SCH ×2 (07:49→20:12)
[2017-03-18] MEDS: NICOTINE 21 MG/24 HR PATCH T-DERMAL SCH (07:59)
[2017-03-18] MEDS: ASPIRIN EC 81 MG TABEC PO SCH (07:59)
[2017-03-18] MEDS: REMOVE OLD PATCH T-DERMAL SCH (07:59)
[2017-03-18] MEDS: CHLORHEXIDINE 0.12% (ORAL KIT) 15 ML CUP MT SCH ×2 (08:00→20:00)
[2017-03-18] MEDS: DOXYCYCLINE HYCLATE 100 MG CAP PO SCH ×2 (08:00→21:00)
[2017-03-18] MEDS: PARoxetine HCL 20 MG TAB PO SCH (08:00)
[2017-03-18] MEDS: PREGABALIN 100 MG CAP PO SCH ×3 (08:00→17:26)
[2017-03-18] MEDS: busPIRone HCL 5 MG TAB PO SCH (08:01)
[2017-03-18] MEDS: ARIPiprazole 15 MG TAB PO SCH (08:01)
[2017-03-18] MEDS: DOCUSATE SODIUM 100 MG CAP PO SCH ×2 (08:01→21:45)
[2017-03-18] MEDS: METOPROLOL TARTRATE 100 MG TAB PO SCH ×2 (08:01→21:45)
[2017-03-18] MEDS: HEPARIN SODIUM - SQ 10,000 UNITS/ML VIAL SQ SCH ×2 (08:01→21:45)
[2017-03-18] MEDS: PANTOPRAZOLE SOD 40 MG DELAYED RELEASE TAB PO SCH (08:01)
[2017-03-18] MEDS: SENNOSIDES 8.6 MG TAB PO SCH ×2 (08:01→21:45)
[2017-03-18] MEDS: methylPREDNISolone SOD SUCC 40 MG/1 ML VIAL IV PUSH SCH (08:02)
[2017-03-18] MEDS: SODIUM CHLORIDE 0.9% FLUSH 10 ML FLUSH IV FLUSH SCH ×2 (08:04→21:46)
[2017-03-18] MEDS: FLUTICASONE PROPIONATE 50 MCG/ACT 16 GM NASAL SPRAY EACH NARE SCH (08:10)
[2017-03-18] MEDS: LOSARTAN 25 MG TAB PO SCH (08:19)
[2017-03-18] MEDS: INSULIN DETEMIR 100 UNITS/ML VIAL SQ SCH ×2 (08:26→21:51)
[2017-03-18] MEDS ORDERED: AZITHROMYCIN 250 MG TAB PO SCH (09:00)
--- NOTE | 2017-03-18 09:06 | HHI.FPPN ---
Subjective Remarks No acute events overnight. Patient continues to maintain saturations on room air though she continues to report sensation of shortness of breath which is unchanged from yesterday. VQ scan is ordered and pending. She does not have home O2, resp walk test is also pending. (Harrison Roa MD R3) Objective Vitals Vital Signs Date Time Temp Pulse Resp B/P Pulse Ox O2 Delivery O2 Flow Rate FiO2 03/18/17 08:00 97.9 77 20 194/90 97 192/96 183/94 03/18/17 07:49 98 21 03/18/17 04:00 Room Air 03/18/17 04:00 98.7 79 18 177/86 95 03/18/17 00:00 98.3 75 20 156/72 96 03/18/17 00:00 Room Air 03/17/17 20:00 Room Air 03/17/17 20:00 97.7 77 20 155/72 96 03/17/17 20:00 73 03/17/17 19:37 96 21 03/17/17 16:00 98.0 73 18 146/71 97 03/17/17 12:00 97.9 74 18 149/80 97 I/O 03/17/17 03/17/17 03/17/17 03/18/17 03/18/17 03/18/17 07:00 15:00 23:00 07:00 15:00 23:00 Intake Total 920 ml Balance 920 ml Intake Oral 720 ml IV Total 200 ml # Voids 4 5 # Bowel Movements 1 (Harrison Roa MD R3) Result Diagram: 03/17/17 1110 03/17/17 1110 Imaging GENERAL: This is a well-nourished, well-developed patient, sitting up in hospital bed, not on O2. SKIN: No rashes, ecchymoses or lesions. Cool and dry. HEAD: Atraumatic. Normocephalic. EYES: Extraocular motions intact. No scleral icterus. No injection or drainage. ENT: Airway patent. CARDIOVASCULAR: Regular rate and rhythm without murmurs, gallops, or rubs. RESPIRATORY: Clear to auscultation. Breath sounds equal bilaterally. No wheezes , rales, or rhonchi. No increased work of breathing or notable tachypnea. GASTROINTESTINAL: Abdomen soft, non-tender, nondistended. MUSCULOSKELETAL: Extremities without edema. No calf tenderness. Negative Homans sign bilaterally. NEUROLOGICAL: Awake and alert. Cranial nerves II through XII intact. Motor and sensory grossly within normal limits. Normal speech. (Harrison Roa MD R3) A/P Assessment and Plan 51 year old female presented w/ respiratory distress requiring emergent intubation. No s/p extubation maintaining saturations on room air with notable deconditioning. PLAN Neuro/Psych: Depression/anxiety Acute toxic metabolic encephalopathy Continue Abilify 15 mill grams daily, BuSpar 5 mill grams daily and Paxil 30 mg daily home medications for depression/anxiety Continue Lyrica 100 mg by mouth 3 times a day for peripheral neuropathy [place] 10mg one tablet every 4 hours when necessary pain/home medication CV: Resistant Hypertension Coronary artery disease status post stent 3 Dyslipidemia BP: Lopressor 20 mg BID, Norvasc 10 mg daily, hydralazine 50 mg TID and Losartan 25mg daily. Clonidine prn BP >170/100. EKG revealed sinus tachycardia with normal LA/QRS intervals. ST T changes in V5 and V6. CPK/troponin negative Echocardiogram ef of 45% to 50%. Wall motion was normal; there were no regional wall motion abnormalities. - Aortic valve: Mild to moderate regurgitation. - Mitral valve: Mild regurgitation. - Tricuspid valve: Mild regurgitation. Resp: Acute hypercapnic hypoxemic respiratory failure COPD Exact etiology of acute exacerbation unclear, overall symptoms improving Currently on room air V/Q scan pending, due to acute nature of resp failure Duo nebs every 4 hours and as needed Solu-Medrol 40 iv every 12 hours -> transition to PO Prednisone 20mg BID Respiratory walk test today Pulmicort twice a day On Advair 250/50 one inhalation twice a day with Atrovent 4 times a day and ProAir 2 puffs every 4-6 hours when necessary at home. GI: Gastroesophageal reflux disease Diabetic gastroparesis Morbid obesity ADA diet Protonix for GI prophylaxis. On Zantac 150 mg twice a day at home Colace/as needed Senokot for bowel regimen : Catheter discontinued Endo: Diabetes mellitus with neuropathy and gastroparesis Chronic prednisone use Home medications Levemir 30 units twice a day with Novolog sliding scale. Patient has been requiring 7-10 units BID of SS Increase Levemir from 12 units BID to 20 units BID Increase accuchecks to AC/HS Renal: History of chronic kidney disease Creatinine currently within normal limits Accurate I's and O's Heme: Leukocytosis Anemia Follow-up CBC in a.m. ID: No growth to date on blood cultures 3, sputum culture showed no growth Check influenza PO Doxycycline FEN: Replace electrolytes as clinically indicated MSK: PT evaluate and treat -> Recommend inpatient rehab. Case management following Access - Utilize peripheral IV. Prophylaxis - GI - Protonix - DVT - SCD/heparin subcutaneous Discharge Planning Per PT, patient will require inpatient rehab. Case management has been consulted. (Harrison Roa MD R3) Attending Attestation Patient seen and examined. Case reviewed and discussed with the resident team. Agree with plan of care as discussed with me and documented in the resident note. (Susan Valadez MD) Problem List: (1) Respiratory failure, acute Status: Acute (2) Acute encephalopathy Status: Acute (3) CAD (coronary artery disease) Status: Chronic (4) History of CVA (cerebrovascular accident) Status: Chronic (5) Hyperlipidemia Status: Chronic (6) Resistant hypertension Status: Chronic (7) Diabetes mellitus Status: Chronic (8) GERD (gastroesophageal reflux disease) Status: Acute (9) COPD exacerbation Status: Acute (10) HTN (hypertension) Status: Chronic (Harrison Roa MD R3) Problem Qualifiers (1) Respiratory failure, acute: Qualified Code: J96.01 - Acute respiratory failure with hypoxia and hypercapnia (2) CAD (coronary artery disease): Qualified Code: I25.10 - Coronary artery disease due to calcified coronary lesion (3) Diabetes mellitus: Qualified Code: E11.9 - Type 2 diabetes mellitus without complication, with long-term current use of insulin (4) GERD (gastroesophageal reflux disease): Qualified Code: K21.9 - Gastroesophageal reflux disease, esophagitis presence not specified Harrison Roa MD R3 March 18, 2017 09:06 Susan Valadez MD March 18, 2017 12:25
--- NOTE | 2017-03-18 12:49 | RADRPT ---
EXAM DATE/TIME: 03/18/2017 11:30 [facility] COMPARISON: CHEST SINGLE AP, March 16, 2017, 3:47. INDICATIONS : Respiratory failure with COPD. DOSE: 1.4 mCi Tc99m DTPA 8.4 mCi Tc99m MAA MEDICAL HISTORY : Renal insufficiency, chrnoic. Diabetes mellitus type 2. Chronic obstructive pulmonary disease. Smoker . SURGICAL HISTORY : Total knee replacement, left. Cholecystectomy. ENCOUNTER: Initial ACUITY: 1 day PAIN SCALE: 0/10 LOCATION: Bilateral chest TECHNIQUE: Following five minutes of tidal breathing of DTPA aerosol, planar images of the lungs were performed in eight projections. The patient was then injected with MAA, and eight-view perfusion scan was perf ormed. FINDINGS: There is a homogeneous pattern of aerosol delivery to the periphery of both lungs. No focal ventilat ory defects are seen. The perfusion lung scan demonstrates a homogenous pattern of uptake in both lungs. No segmental or s ubsegmental defects are seen. CONCLUSION: Low probability scan for pulmonary embolism Mukund Davidson MD on March 18, 2017 at 12:47 Board Certified Radiologist. This report was verified electronically.
--- NOTE | 2017-03-18 16:28 | RADRPT ---
EXAM DATE/TIME: 03/18/2017 12:39 [facility] COMPARISON: CHEST SINGLE AP, March 16, 2017, 3:47. INDICATIONS : Short of Breath, Comp Nuclear Medicine VQ Scan. MEDICAL HISTORY : Renal insufficiency, chrnoic. Diabetes mellitus type 2. Chronic obstructive pulmonary disease. Smoker SURGICAL HISTORY : Total knee replacement, left. Cholecystectomy. ENCOUNTER: Subsequent ACUITY: 1 day PAIN SCORE: 0/10 LOCATION: Bilateral chest FINDINGS: Single frontal view of the chest demonstrates a normal-sized cardiac silhouette. Multiple EKG lines o verlie the patient. No effusion, consolidation, or pneumothorax is identified. Bones and soft tissues demonstrate no acute finding. Cervical spine hardware is present. CONCLUSION: No acute cardiopulmonary abnormality is identified. Mukund Nichole MD on March 18, 2017 at 16:25 Board Certified Radiologist. This report was verified electronically.
[2017-03-18] MEDS: cloNIDine HCL 0.1 MG TAB PO PRN (16:53)
[2017-03-18] MEDS: predniSONE 20 MG TAB PO SCH (21:45)
[2017-03-18] MEDS: PRAVASTATIN SOD 20 MG TAB PO SCH (21:45)
[2017-03-19] VITALS: BP 181/86; PULSE 68; RESP 16; TEMP 98; O2SAT 94
[2017-03-19] MEDS: cloNIDine HCL 0.1 MG TAB PO PRN (01:19)
[2017-03-19] MEDS: CHLORHEXIDINE GLUCONATE 2 % 1 PACK (2 CLOTHS) TOP SCH (03:26)
[2017-03-19 04:00] VITALS: BP 172/83; PULSE 68; RESP 16; TEMP 98.2; O2SAT 98
[2017-03-19] MEDS: ACETAMINOPHEN/HYDROcodone 325 MG/10 MG TAB PO PRN ×2 (04:29→11:05)
[2017-03-19] MEDS: hydrALAZINE HCL 50 MG TAB PO SCH ×2 (06:00→14:40)
[2017-03-19] MEDS: INSULIN NovoLIN REGULAR SUPPLEMENTAL SCALE SQ SCH ×2 (06:18→11:32)
--- NOTE | 2017-03-19 07:46 | HHI.FF ---
Face to Face Verification Diagnosis: (1) Respiratory failure, acute (2) COPD exacerbation Home Health Nursing Order: Medical education Signs/symptoms of disease process Medication education-adverse effect I have seen patient Ashanti Stern on 03/19/17. My clinical findings support the need for the requested home health care services because: Ltd mobility - disease progression Patient has SOB Deconditioned w/ increased weakness I certify that my clinical findings support that this patient is homebound because: Hx COPD- exertion dyspnea/weakness Unsteady gait/balance Harrison Roa MD R3 March 19, 2017 07:46 Lindsey Garcia MD March 19, 2017 14:31 Harrison Roa MD R3 March 19, 2017 07:46
[2017-03-19 08:00] VITALS: BP 181/92; PULSE 70; RESP 20; TEMP 98.4; O2SAT 96
[2017-03-19] MEDS: CHLORHEXIDINE 0.12% (ORAL KIT) 15 ML CUP MT SCH (08:00)
[2017-03-19] MEDS: SENNOSIDES 8.6 MG TAB PO SCH (08:07)
[2017-03-19] MEDS: predniSONE 20 MG TAB PO SCH (08:07)
[2017-03-19] MEDS: LOSARTAN 25 MG TAB PO SCH (08:07)
[2017-03-19] MEDS: busPIRone HCL 5 MG TAB PO SCH (08:07)
[2017-03-19] MEDS: DOCUSATE SODIUM 100 MG CAP PO SCH (08:07)
[2017-03-19] MEDS: PANTOPRAZOLE SOD 40 MG DELAYED RELEASE TAB PO SCH (08:07)
[2017-03-19] MEDS: HEPARIN SODIUM - SQ 10,000 UNITS/ML VIAL SQ SCH (08:08)
[2017-03-19] MEDS: PARoxetine HCL 20 MG TAB PO SCH (08:09)
[2017-03-19] MEDS: PREGABALIN 100 MG CAP PO SCH ×2 (08:13→11:28)
[2017-03-19] MEDS: NICOTINE 21 MG/24 HR PATCH T-DERMAL SCH (08:13)
[2017-03-19] MEDS: METOPROLOL TARTRATE 100 MG TAB PO SCH (08:13)
[2017-03-19] MEDS: ARIPiprazole 15 MG TAB PO SCH (08:14)
[2017-03-19] MEDS: FLUTICASONE PROPIONATE 50 MCG/ACT 16 GM NASAL SPRAY EACH NARE SCH (08:14)
[2017-03-19] MEDS: SODIUM CHLORIDE 0.9% FLUSH 10 ML FLUSH IV FLUSH SCH (08:14)
[2017-03-19] MEDS: DOXYCYCLINE HYCLATE 100 MG CAP PO SCH (08:15)
[2017-03-19 08:20] VITALS: PULSE 70
--- NOTE | 2017-03-19 08:27 | HHI.FPPN ---
Subjective Remarks No acute events overnight. Patient has not had any recurrence of respiratory distress. PT had recommended inpatient rehab. She is not a candidate for [facility]. Per CM, insurance will only cover home w/ home health. Patient is in agreement with this plan. She continues to endorse mild shortness of breath but continues to maintain saturations on room air and was evaluated by respiratory including walk test w/o requiring need for O2. She denies any chest pain or calf pain. V/Q scan yesterday showed low probability of PE. She is precontemplative regarding quitting smoking. She has an appt with her PCP, Dr. Jason in 2 days. (Harrison Roa MD R3) Objective Vitals Vital Signs Date Time Temp Pulse Resp B/P Pulse Ox O2 Delivery O2 Flow Rate FiO2 03/19/17 04:00 Room Air 03/19/17 04:00 98.2 68 16 172/83 98 03/19/17 00:00 98.0 68 16 181/86 94 03/19/17 00:00 Room Air 03/18/17 21:00 68 03/18/17 20:00 98.2 75 18 174/83 94 03/18/17 20:00 Room Air 03/18/17 16:05 98.1 73 20 171/81 96 03/18/17 12:30 98.3 76 20 178/86 96 03/18/17 09:53 Room Air I/O 03/18/17 03/18/17 03/18/17 03/19/17 03/19/17 03/19/17 07:00 15:00 23:00 07:00 15:00 23:00 Intake Total 1080 ml 240 ml Balance 1080 ml 240 ml Intake Oral 1080 ml 240 ml # Voids 5 2 7 1 # Bowel Movements 1 0 (Harrison Roa MD R3) Result Diagram: 03/17/17 1110 03/17/17 1110 Objective Remarks GENERAL: This is a well-nourished, well-developed patient, sitting up in hospital bed, not on O2. SKIN: No rashes, ecchymoses or lesions. Cool and dry. HEAD: Atraumatic. Normocephalic. EYES: Extraocular motions intact. No scleral icterus. No injection or drainage. ENT: Airway patent. CARDIOVASCULAR: Regular rate and rhythm without murmurs, gallops, or rubs. RESPIRATORY: Clear to auscultation. Breath sounds equal bilaterally. No wheezes , rales, or rhonchi. No increased work of breathing or notable tachypnea. MUSCULOSKELETAL: Extremities without edema. No calf tenderness. NEUROLOGICAL: Awake and alert. Cranial nerves II through XII intact. Motor and sensory grossly within normal limits. Normal speech. (Harrison Roa MD R3) A/P Assessment and Plan 51 year old female presented w/ respiratory distress requiring emergent intubation. No s/p extubation maintaining saturations on room air with notable deconditioning. PLAN Neuro/Psych: Depression/anxiety Acute toxic metabolic encephalopathy Continue Abilify 15 mill grams daily, BuSpar 5 mill grams daily and Paxil 30 mg daily home medications for depression/anxiety Continue Lyrica 100 mg by mouth 3 times a day for peripheral neuropathy [place] 10mg one tablet every 4 hours when necessary pain/home medication CV: Resistant Hypertension Coronary artery disease status post stent 3 Dyslipidemia BP: Lopressor 20 mg BID, Norvasc 10 mg daily, hydralazine 50 mg TID and Losartan 25mg daily. Clonidine prn BP >170/100. EKG on admission revealed sinus tachycardia with normal DC/QRS intervals. Initial ST T changes in V5 and V6. CPK/troponin negative Echocardiogram ef of 45% to 50%. Wall motion was normal; there were no regional wall motion abnormalities. - Aortic valve: Mild to moderate regurgitation. - Mitral valve: Mild regurgitation. - Tricuspid valve: Mild regurgitation. Resp: Acute hypercapnic hypoxemic respiratory failure COPD Exact etiology of acute exacerbation unclear, overall symptoms improving, no recurrence, and patient has demonstrated ability to maintain pulse ox w/o need for oxygen Currently on room air V/Q scan showed low probability of PE Duo nebs every 4 hours and as needed Continue PO Prednisone 20mg BID Respiratory walk test: Pt walked 300ft and maintained O2 sat at 99% Pulmicort twice a day On Advair 250/50 one inhalation twice a day with Atrovent 4 times a day and ProAir 2 puffs every 4-6 hours when necessary at home. GI: Gastroesophageal reflux disease Diabetic gastroparesis Morbid obesity ADA diet Protonix for GI prophylaxis. On Zantac 150 mg twice a day at home Colace/as needed Senokot for bowel regimen : Catheter discontinued Endo: Diabetes mellitus with neuropathy and gastroparesis Chronic prednisone use Home medications Levemir 30 units twice a day with Novolog sliding scale. Continue Levemir 20 units BID Accuchecks to AC/HS Renal: History of chronic kidney disease Creatinine currently within normal limits Accurate I's and O's Heme: Leukocytosis Anemia Follow-up CBC in a.m. ID: No growth to date on blood cultures 3, sputum culture showed no growth Check influenza PO Doxycycline FEN: Replace electrolytes as clinically indicated MSK: PT evaluate and treat -> Recommend inpatient rehab, however, due to insurance, no placement available Case management recommends home w/ home health and PT. Patient is in agreement with this plan Access - Utilize peripheral IV. Prophylaxis - GI - Protonix - DVT - SCD/heparin subcutaneous Discharge Planning Patient reportedly does not have placement for inpatient rehab. Anticipate discharge to home w/ home health and PT today. (Harrison Roa MD R3) Attending Attestation Patient seen and examined. Case reviewed and discussed Agree with plan of care as discussed with me and documented in the resident note. Patient sitting in wheel chair in room, family at the bedside. Patient no longer receiving anticoagulation, despite arterial thrombus and multiple TIA with residual neurologic deficit, seems to warrant anticoagulation. I did call patient's PCP to discuss any contraindications to anti-coagulation in light of high risk patient. Will discharge with Xarelto, as patient tolerated this well in the past. PCP agreeable to further investigation. (Lindsey Garcia MD) Problem List: (1) Respiratory failure, acute Status: Acute (2) Acute encephalopathy Status: Resolved (3) CAD (coronary artery disease) Status: Chronic (4) History of CVA (cerebrovascular accident) Status: Chronic (5) Hyperlipidemia Status: Chronic (6) Resistant hypertension Status: Chronic (7) Diabetes mellitus Status: Chronic (8) GERD (gastroesophageal reflux disease) Status: Acute (9) COPD exacerbation Status: Acute (10) HTN (hypertension) Status: Chronic (Harrison Roa MD R3) Problem Qualifiers (1) Respiratory failure, acute: Qualified Code: J96.01 - Acute respiratory failure with hypoxia and hypercapnia (2) CAD (coronary artery disease): Qualified Code: I25.10 - Coronary artery disease due to calcified coronary lesion (3) Diabetes mellitus: Qualified Code: E11.9 - Type 2 diabetes mellitus without complication, with long-term current use of insulin (4) GERD (gastroesophageal reflux disease): Qualified Code: K21.9 - Gastroesophageal reflux disease, esophagitis presence not specified Harrison Roa MD R3 March 19, 2017 08:26 Lindsey Garcia MD March 20, 2017 16:57
[2017-03-19] MEDS: INSULIN DETEMIR 100 UNITS/ML VIAL SQ SCH (08:30)
[2017-03-19] MEDS: RESP: BUDESONIDE 0.5 MG/2 ML NEB NEB SCH (08:35)
[2017-03-19] MEDS: REMOVE OLD PATCH T-DERMAL SCH (08:36)
[2017-03-19 08:37] VITALS: O2SAT 98
[2017-03-19] MEDS ORDERED: DOXY100C PO (08:44)
[2017-03-19] MEDS ORDERED: PRED20 PO (08:44)
--- NOTE | 2017-03-19 08:46 | HHI.DCPOC ---
Discharge Care Plan Diagnosis: (1) Respiratory failure, acute (2) COPD exacerbation Goals to Promote Your Health * To prevent worsening of your condition and complications * To maintain your health at the optimal level Directions to Meet Your Goals Take your medications as prescribed Follow your dietary instruction Follow activity as directed Keep your appointments as scheduled Take your immunizations and boosters as scheduled If your symptoms worsen call your PCP, if no PCP go to Urgent Care Center or Emergency Room Smoking is Dangerous to Your Health. Avoid second hand smoke Call the 24-hour hour crisis hotline for domestic abuse at Harrison Roa MD R3 March 19, 2017 08:46 Lindsey Garcia MD March 19, 2017 14:32
--- NOTE | 2017-03-19 10:10 | HHI.FPPN ---
Addendum to progress note ADDENDUM Reason for addendum: Additonal documentation Additional information Spoke with Stevenr with CM. States patient does not have SNF coverage on insurance and insurance will not cover PT w/ home health. She advised that we proceed with home health with plan for family to transport patient to outpatient PT. Harrison Roa MD R3 March 19, 2017 10:10
[2017-03-19 12:00] VITALS: BP 158/70; PULSE 67; RESP 20; TEMP 97.4; O2SAT 98
[2017-03-19] MEDS ORDERED: LOSA25TA PO (13:29)
[2017-03-19] MEDS ORDERED: RIVAROXABAN 20 MG TAB PO SCH (14:15)
[2017-03-19] MEDS ORDERED: XARE20TA PO (15:03)
--- NOTE | 2017-03-20 11:25 | HHI.DS ---
Discharge Summary Admission Date March 14, 2017 at 17:36 Discharge Date: March 19, 2017 Admitting Diagnosis Respiratory failure, copd, diabetes mellitus Brief History Patient is a 51-year-old female with a past medical history significant for COPD with ongoing tobacco use, hypertension, hyperlipidemia, history of prior CVA 3, CAD with stenting 3, diabetes, GERD, sickle cell trait, seizure disorder, and gastroparesis who initially presented to [facility] with acute onset shortness of breath. Per credit union manager, when she initially presented she was profoundly hypertensive and in respiratory distress. She subsequently required emergent intubation in the ER and was transferred to the ICU for critical care. Patient was extubated 03/16 and has now been maintaining saturations on room air for >24 hrs. CBC/BMP: 03/17/17 1110 03/17/17 1110 PE at Discharge GENERAL: This is a well-nourished, well-developed patient, sitting up in hospital bed, not on O2. SKIN: No rashes, ecchymoses or lesions. Cool and dry. HEAD: Atraumatic. Normocephalic. EYES: Extraocular motions intact. No scleral icterus. No injection or drainage. ENT: Airway patent. CARDIOVASCULAR: Regular rate and rhythm without murmurs, gallops, or rubs. RESPIRATORY: Clear to auscultation. Breath sounds equal bilaterally. No wheezes , rales, or rhonchi. No increased work of breathing or notable tachypnea. MUSCULOSKELETAL: Extremities without edema. No calf tenderness. NEUROLOGICAL: Awake and alert. Cranial nerves II through XII intact. Motor and sensory grossly within normal limits. Normal speech. Transfer Summary This is a 51-year-old female. Admitted with acute hypoxemic hypercapnic respiratory failure likely secondary to COPD. Extubated 12 hours after intubation. Currently in room air. Hospital Course Patient continued to demonstrate ability to maintain O2 on room air. Due to acute nature of her respiratory distress at the time of presentation, a V/Q scan was performed which showed low probability of pulmonary embolus. Respiratory walk test was performed and patient maintained saturations at 99% without requiring any oxygen. Patient was noted to have deconditioning per PT. Due to insurance purposes, PT was unable to be arranged at inpatient rehabilitation. It was subsequently recommended that the patient have physical therapy with home health. Again, due to insurance barriers, home health was unable to offer PT and it was arranged for the patient to have a ride for outpatient physical therapy. She was subsequently deemed to reach the maximum benefit of her inpatient stay and was discharged to home with home health and outpatient physical therapy. Plan in place to follow up with PCP, Dr. Jason in 2 days on 03/21. Pt Condition on Discharge: Stable Discharge Disposition: Disch w/ Home Health Serv Discharge Instructions DIET: Follow Instructions for: Diabetic Diet Speech Therapy-Diet Recommends: Regular Activities you can perform: Regular-No Restrictions, See Additionl Instruction Other Activity Instructions: Per PT rec's Follow up Referrals: PCP Follow-up - 2-3 Days with Juan Ramon Jason MD R1 SNF/[facility]/HH with [facility] New Orders: Physical Therapy - 2-3 Days New Medications: Doxycycline Hyclate (Doxycycline Hyclate) 100 Mg Cap 100 MG PO BID #6 CAP Prednisone (Prednisone) 20 Mg Tab 20 MG PO BID Take one tab twice a day x2 days, then one tab daily x3 days, then stop. #7 TAB Rivaroxaban (Xarelto) 20 Mg Tab 20 MG PO DAILY #30 Ref 0 TAB Changed Medications: Losartan (Losartan) 25 Mg Tab 50 MG PO DAILY Blood Pressure Management #180 Ref 0 TAB (Changed from: 25 MG; 90 ) Continued Medications: Albuterol 8.5 GM Inh (Proair Hfa 8.5 GM Inh) 90 Mcg/Act Aer 2 PUFF INH Q4-6H 108 mcg/actuation PRN SHORTNESS OF BREATH #1 Ref 2 INHALER Albuterol Neb (Albuterol Neb) 2.5 Mg/3 Ml Neb 2.5 MG NEB Q4HR NEB PRN SOB/WHEEZING #60 Ref 0 NEBULE Amlodipine (Amlodipine) 10 Mg Tab 10 MG PO DAILY Blood Pressure Management #90 Ref 3 TAB Aripiprazole (Abilify) 15 Mg Tab 15 MG PO DAILY #30 Ref [address] (Aspirin 81) 81 Mg Tabdr 81 MG PO EVERY OTHER DAY #60 Ref 2 TAB Buspirone (Buspirone) 5 Mg Tab 5 MG PO DAILY Anxiety #90 Ref 3 TAB Fluticasone Nasal Carrier (Fluticasone Nasal Carrier) 50 Mcg/Act Naspr 50 MCG EACH NARE DAILY 50 mcg/spray Allergy Management #1 Ref 5 BOTTLE Fluticasone-Salmeterol Inh (Advair Diskus Inh) 250-50 Mcg/Blist Aer 1 PUFF INH BID Rinse mouth after use. #1 Ref 5 INHALER Hydralazine (Hydralazine) 50 Mg Tab 50 MG PO BID Take with a meal Blood Pressure Management #120 Ref 2 TAB Hydrocodone-Acetaminophen (Hydrocodone-Acetaminophen) 10-325 mg Tab 1 TAB PO Q4-6HR PRN PAIN #14 Ref 0 TAB Ibuprofen (Ibuprofen) 800 Mg Tab 800 MG PO TID Pain #21 TAB Insulin Aspart Inj (Novolog Inj) 1,000 Unit/10 Ml Vial 0-25 UNITS SQ ACHS Max dose at bedtime:( )units; sugars less than 70,(0) units; sugars 150-199,(5) units; sugars 200-249,(10) units; sugars 250-299,(15) units; sugars 300-349,(20)units; sugars greater than 349,(25)units Blood Sugar Management #10 Ref 3 ML Insulin Detemir Inj (Levemir Inj) 1,000 unit/ 10 ML Vial 30 UNITS SQ BID Do not mix with any other Insulin. Blood Sugar Management #3 Ref 2 VIAL Ipratropium HFA 12.9 GM Inh (Atrovent HFA 12.9 GM Inh) 17 Mcg/Act Aer 2 PUFF INH QID #1 Ref 5 INHALER Lovastatin (Lovastatin) 20 Mg Tab 20 MG PO HS Cholesterol Management #60 Ref 2 TAB Metoprolol Tartrate (Metoprolol Tartrate) 100 Mg Tab 100 MG PO BID #60 Ref 2 TAB Paroxetine (Paroxetine) 30 Mg Tab 30 MG PO DAILY #90 Ref 3 TAB Pregabalin (Lyrica) 100 Mg Cap 100 MG PO TID #90 CAP Ranitidine (Ranitidine) 150 Mg Tab 150 MG PO BID Heartburn Management #60 Ref 0 TAB Tizanidine (Tizanidine) 4 Mg Tab 4 MG PO QID Muscle Spasm TAB Discontinued Medications: Hydroxyzine Pamoate (Hydroxyzine Pamoate) 50 Mg Cap 50 MG PO BID PRN MILD TO MODERATE ITCHING Ref 0 CAP Ondansetron (Zofran) 4 Mg Tab 4 MG PO Q8HR PRN NAUSEA OR VOMITING #90 Ref 2 TAB Prednisone (Prednisone) 50 Mg Tab 50 MG PO DAILY Days 5 Ref 0 TAB Harrison Roa MD R3 March 20, 2017 11:25
[2017-03-21] MEDS ORDERED: LEVEMIR SQ (14:25)
[2017-03-21] MEDS ORDERED: XARE20TA PO (14:25)
[2017-03-21] MEDS ORDERED: LOSA50TA PO (14:25)
[2017-03-21] MEDS ORDERED: AMBI10TA PO (14:28)
[2017-03-29] MEDS ORDERED: PERI8.6T PO (11:39)
[2017-03-29] MEDS ORDERED: ONDA1TAB17 PO (11:39)
[2017-04-03] MEDS ORDERED: ALBUAER3 INH (13:31)
[2017-04-05] MEDS ORDERED: OMEP10CA PO (14:17)
[2017-04-05] MEDS ORDERED: AMBI10TA PO (14:17)
[2017-04-05] MEDS ORDERED: NICO21DI2 T-DERMAL (14:17)
[2017-04-05] MEDS ORDERED: VARE1PAK3 PO (14:17)
[2017-04-05] MEDS ORDERED: LEVEMIR SQ (14:17)
[2017-04-15] MEDS ORDERED: LEVEMIR SQ (16:26)
[2017-04-15] MEDS ORDERED: PANT40TA3 PO (16:30)
[2017-04-15] MEDS ORDERED: TRIA.1%T TOPICAL (16:44)
[2017-04-23] MEDS ORDERED: ALBU0.08 NEB (21:16)
[2017-04-23] MEDS ORDERED: ADVA250A INH (21:16)
[2017-04-24] MEDS ORDERED: ZOLP5TAB3 PO (21:02)
[2017-04-24] MEDS ORDERED: OMEP20TA PO (21:37)
[2017-04-24] MEDS ORDERED: BD L33MI ×2 (21:37→21:48)
[2017-04-24] MEDS ORDERED: BD I1MIS10 (21:37)
[2017-04-24] MEDS ORDERED: NOVOLOGP2 SQ (21:37)
[2017-04-24] MEDS ORDERED: METO100T PO (21:37)
[2017-04-24] MEDS ORDERED: LIDO2GEL11 TOPICAL (21:37)
[2017-04-24] MEDS ORDERED: BLOOD GLUCOSE T1 TES (21:37)
== END 2017-03-19 15:12 | disposition home or self-care (01) | DRG 189 ==
LOC: NEPE 16:26 → NEDH 17:36 → HIME 21:50 → N04A 03-16 17:40
PROVIDERS: ADMIT Family Medicine; ATTEND Family Medicine
DX: J96.01 Acute respiratory failure with hypoxia (principal); G92 Toxic encephalopathy; E11.22 Type 2 diabetes mellitus with diabetic chronic kidney disease; I13.0 Hypertensive heart and chronic kidney disease with heart failure and stage 1 through stage 4 chronic kidney disease, or unspecified chronic kidney disease; K31.84 Gastroparesis; E11.42 Type 2 diabetes mellitus with diabetic polyneuropathy; I50.9 Heart failure, unspecified; J44.1 Chronic obstructive pulmonary disease with (acute) exacerbation; I25.810 Atherosclerosis of coronary artery bypass graft(s) without angina pectoris; I16.1 Hypertensive emergency; D57.1 Sickle-cell disease without crisis; Z95.1 Presence of aortocoronary bypass graft; J96.02 Acute respiratory failure with hypercapnia; N18.9 Chronic kidney disease, unspecified; E11.43 Type 2 diabetes mellitus with diabetic autonomic (poly)neuropathy; E11.65 Type 2 diabetes mellitus with hyperglycemia; E78.5 Hyperlipidemia, unspecified; G40.909 Epilepsy, unspecified, not intractable, without status epilepticus; G47.30 Sleep apnea, unspecified; I25.2 Old myocardial infarction; I25.84 Coronary atherosclerosis due to calcified coronary lesion; J45.909 Unspecified asthma, uncomplicated; I07.1 Rheumatic tricuspid insufficiency; K21.0 Gastro-esophageal reflux disease with esophagitis; E66.01 Morbid (severe) obesity due to excess calories; Z68.29 Body mass index [BMI] 29.0-29.9, adult; F41.8 Other specified anxiety disorders; F17.210 Nicotine dependence, cigarettes, uncomplicated; Z79.52 Long term (current) use of systemic steroids; Z79.899 Other long term (current) drug therapy; Z85.42 Personal history of malignant neoplasm of other parts of uterus; Z86.73 Personal history of transient ischemic attack (TIA), and cerebral infarction without residual deficits; Z95.5 Presence of coronary angioplasty implant and graft; Z96.652 Presence of left artificial knee joint; Z98.1 Arthrodesis status
CPT/HCPCS: 31500; 36600; 51702; 71010; 78582; 80048; 80053; 80076; 81001; 82550; 82552; 82805; 82948; 83605; 83735; 84100; 84484; 84702; 85007; 85025; 85027; 85384; 85610; 85730; 87040; 87070; 87205; 87641; 87804; 93005; 93306; 94002; 94003; 94150; 94620; 94640; 94664; 96374; A9540; A9567; C9113; J0330; J0360; J1644; J2543; J2920; J3010; J7030; J7512; J7626

== ENCOUNTER 2017-05-21 22:11 | Observation (INO) | payer MEDICAID ==
[~2017-05-21] VITALS: Ht 165.1 cm; Wt 80.0 kg
[~2017-05-21 22:11] MED LIST changes: +BD I1MIS10; +BD L33MI; +BLOOD GLUCOSE T1 TES; -HYDR50CA PO; -INSU-170; +LIDO2GEL11 TOPICAL; -LOSA25TA PO; +LOSA50TA PO; +NICO21DI2 T-DERMAL; +OMEP20TA PO; +ONDA1TAB17 PO; -PRED50 PO; +TRIA.1%T TOPICAL; +VARE1PAK3 PO; +XARE20TA PO; -ZOFR4TAB PO; +ZOLP5TAB3 PO
[2017-05-21 22:17] VITALS: BP 140/87; PULSE 89; RESP 21; TEMP 98.1; O2SAT 98
[2017-05-21 22:25] VITALS: O2SAT 98
[2017-05-21] MEDS ORDERED: ONDANSETRON HCL 4 MG/2 ML VIAL IV PUSH ONE (22:30)
[2017-05-21] MEDS ORDERED: MORPHINE SULFATE 4 MG/ML INJ IV PUSH ONE (22:30)
[2017-05-21] MEDS ORDERED: ASPIRIN 81 MG CHEW TAB PO ONE (22:30)
[2017-05-21] MEDS ORDERED: SODIUM CHLORIDE 0.9% FLUSH 10 ML FLUSH IVF PRN (22:30)
[2017-05-21] MEDS ORDERED: SODIUM CHLORID 0.9% 500 ML INJ 500 ML IV ONE (22:30)
[2017-05-21 22:34] VITALS: BP_SYST 169; BP_SYST 187; BP_DIAS 67; BP_DIAS 77
--- NOTE | 2017-05-21 22:35 | PD ---
HPI Chief Complaint: Chest Pain Time Seen by Provider: 22:21 Travel History International Travel<30 days: No Contact w/Intl Traveler<30days: No Traveled to known affect area: No History of Present Illness HPI The patient is a 51-year-old [place] female who presents emergency department for chest pain and shortness of breath. The patient states she developed anterior right sided chest pain that radiates to the right side of the neck and down the right arm yesterday. The patient's pain has been constant , is associated with shortness of breath, nausea, and diaphoresis. The patient does have a history of hypertension, hyperlipidemia, tobacco use, CAD with previous stent placement in [place], [place] in 2012, as well as pulmonary embolism. The patient also has a history of diabetes. The patient states her symptoms are similar to her pulmonary embolism and her chest pain she developed just prior to stent placement. The patient's primary physician is Dr. Jason. 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 The patient denies any abdominal pain or lower extremity pain. She does complain of numbness and tingling with the pain of her right upper extremity that is radiating from the chest. Symptoms are moderate, there are no current alleviating or exacerbating factors. The patient received nitroglycerin by EMS prior to arrival without any alleviation of her symptoms. The patient's currently anticoagulated on Xarelto for her pulmonary embolism. PFSH Past Medical History Hx Anticoagulant Therapy: Yes (xarelto) Arthritis: Yes Asthma: Yes Autoimmune Disease: No Blood Disorders: No Anxiety: No Depression: Yes Heart Rhythm Problems: No Cancer: Yes (UTERINE) Cardiac Catheterization: Yes (X6) Cardiovascular Problems: Yes (NC, STENTS X 3) High Cholesterol: Yes Chemotherapy: No Chest Pain: Yes Congestive Heart Failure: Yes COPD: Yes Cerebrovascular Accident: Yes (tia) Coronary Artery Disease: Yes Diabetes: Yes Patient Takes Glucophage: No Diminished Hearing: No Endocrine: Yes Gastrointestinal Disorders: Yes (GASTRO PARESIS) GERD: Yes Genitourinary: No Headaches: No Hypertension: Yes Immune Disorder: No Implanted Vascular Access Dvce: No Musculoskeletal: Yes (chronic knee pain, chronic back pain) Neurologic: Yes (NEUROPATHY, CVA ) Psychiatric: Yes Reproductive: No Respiratory: Yes (copd, PE) Immunizations Current: Yes Migraines: No Myocardial Infarction: Yes Radiation Therapy: No Seizures: Yes (2000,2001,2002) Sickle Cell Disease: Yes (SICKLE CELL TRAIT) Sleep Apnea: Yes Thyroid Disease: No Ulcer: Yes Influenza Vaccination: No ?: Not Menopausal: Yes : 10 Para: 7 Miscarriage: 3 Past Surgical History Abdominal Surgery: Yes (GALL BLADDER) Cardiac Surgery: Yes Section: Yes Cholecystectomy: Yes Coronary Stent: Yes (X2) Ear Surgery: No Endocrine Surgery: No Eye Surgery: No Genitourinary Surgery: No Gynecologic Surgery: Yes Hysterectomy: Yes Joint Replacement: Yes (left knee UPCOMING) Neurologic Surgery: Yes (NECK FUSED) Oral Surgery: No Thoracic Surgery: No Other Surgery: Yes (LEFT AXILLARY TUMOR REMOVED) Social History Alcohol Use: No Tobacco Use: Yes (1 PPD) Substance Use: No Allergies-Medications (Allergen,Severity, Reaction): Coded Allergies: Cipro (Verified Allergy, Severe, SWELLING SOB, 05/21/17) Erythromycin (Verified Allergy, Severe, SWELLING SOB, 05/21/17) Tramadol (Verified Allergy, Severe, rash, 05/21/17) Vancomycin (Verified Allergy, Severe, SWELLING AND SOB, 05/21/17) *MDRO Multi-Drug Resistant Organism (Verified Adverse Reaction, Unknown, ) 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) MRSA PCR screen NEGATIVE 03/14/17 & 03/18/17 Cleared per Infection Control Reported Meds & Prescriptions Reported Meds & Active Scripts Active Levemir Inj (Insulin Detemir) 1,000 unit/ 10 ML Vial 60 Units SQ BID Do not mix with any other Insulin. Bd Lancet Ultrafine 33G (Lancets) 1 Mis Mis Units ACHS Use to obtain blood for sugar checks Blood Glucose Test Strips Strips Strip 1 Ea .ROUTE DIRECTED Check blood sugar 4 times a day (before meals and at bedtime) Novolog Inj (Insulin Aspart) 1,000 Unit/10 Ml Vial 0-25 Units SQ ACHS Max dose at bedtime:( )units; sugars less than 70,(0) units; sugars 150-199,(5) units; sugars 200-249,(10) units; sugars 250-299,(15) units; sugars 300-349,(20)units; sugars greater than 349,(25)units Lidocaine Topical (Lidocaine HCl) 2 % Jel 1 Applic TOPICAL QID PRN Omeprazole 20 Mg Tab 20 Mg PO DAILY Metoprolol Tartrate 100 Mg Tab 100 Mg PO BID Albuterol Neb (Albuterol Sulfate) 2.5 Mg/3 Ml Neb 2.5 Mg NEB Q4HR NEB PRN Advair Diskus Inh (Fluticasone-Salmeterol Inh) 250-50 Mcg/Blist Aer 1 Puff INH BID Rinse mouth after use. Triamcinolone Topical (Triamcinolone Acetonide) 0.1% Cream 1 Applic TOPICAL BID Chantix Starting Month Juan (Varenicline) 0.5 mg X 11 & 1 mg X 42 Pack 1 Tab PO DIRECTED Nicotine Patch (Nicotine) 21 Mg/24 Hr Patch 21 Mg T-DERMAL DAILY Proair Hfa 8.5 GM Inh (Albuterol Sulfate) 90 Mcg/Act Aer 2 Puff INH Q4-6H PRN 108 mcg/actuation Ondansetron (Ondansetron HCl) 8 Mg Tab 8 Mg PO TID PRN Losartan (Losartan Potassium) 50 Mg Tab 50 Mg PO DAILY Fluticasone Nasal Ward 50 Mcg/Act Naspr 50 Mcg EACH NARE DAILY 50 mcg/spray Atrovent HFA 12.9 GM Inh (Ipratropium [place]) 17 Mcg/Act Aer 2 Puff INH QID Hydrocodone-Acetaminophen 10-325 mg Tab 1 Tab PO Q4-6HR PRN Paroxetine (Paroxetine HCl) 30 Mg Tab 30 Mg PO DAILY Buspirone (Buspirone HCl) 5 Mg Tab 5 Mg PO DAILY Ibuprofen 800 Mg Tab 800 Mg PO TID Nebulizer 1 Mis Mis 1 Ea .ROUTE DIRECTED Use with albuterol every 4 hours as needed for shortness of breath, wheezing. Aspirin 81 (Aspirin) 81 Mg Tabdr 81 Mg PO EVERY OTHER DAY Lovastatin 20 Mg Tab 20 Mg PO HS Lyrica (Pregabalin) 100 Mg Cap 100 Mg PO TID Reported Nortriptyline (Nortriptyline HCl) 50 Mg Cap 50 Mg PO HS Norvasc (Amlodipine Besylate) 10 Mg Tab 10 Mg PO DAILY Vistaril (Hydroxyzine Pamoate) 50 Mg Cap 50 Mg PO HS Singulair (Montelukast Sodium) 10 Mg Tab 10 Mg PO HS Baclofen 20 Mg Tab 20 Mg PO QID Ambien (Zolpidem Tartrate) 5 Mg Tab 5 Mg PO HS PRN Atrovent HFA 12.9 GM Inh (Ipratropium [place]) 17 Mcg/Act Aer 2 Puff INH Q6HR PRN Xarelto (Rivaroxaban) 20 Mg Tab 20 Mg PO DAILY Bd Insulin Syringe Ultraf 31G X 5/16" 1 ml (Insulin Syringe/Needle U-100) 1 Mis Mis Ea Abilify (Aripiprazole) 15 Mg Tab 15 Mg PO DAILY Ranitidine (Ranitidine HCl) 150 Mg Tab 150 Mg PO BID Tizanidine (Tizanidine HCl) 4 Mg Tab 4 Mg PO QID Review of Systems Except as stated in HPI: all other systems reviewed are Neg General / Constitutional: No: Fever Cardiovascular: Positive: Chest Pain or Discomfort, Diaphoresis, Dyspnea on exertion Respiratory: Positive: Shortness of Breath Gastrointestinal: Positive: Nausea, No: Vomiting Neurologic: Positive: Paresthesia (paresthesias right upper extremity), No: Dizziness Physical Exam Narrative GENERAL: Awake, alert, pleasant 51-year-old female appears her stated age and is in no acute respiratory distress. SKIN: Focused skin assessment warm/dry. HEAD: Atraumatic. Normocephalic. EYES: No injection or drainage. ENT: No nasal bleeding or discharge. Mucous membranes pink and moist. NECK: Trachea midline. No JVD. CARDIOVASCULAR: Regular rate and rhythm. No murmur appreciated. Heart rate in the 90s. RESPIRATORY: No accessory muscle use. Clear to auscultation. Breath sounds equal bilaterally. GASTROINTESTINAL: Abdomen soft, non-tender, nondistended. No rebound tenderness. MUSCULOSKELETAL: No obvious deformities. No clubbing. No cyanosis. No edema. NEUROLOGICAL: Awake and alert. No obvious cranial nerve deficits. Motor grossly within normal limits. Normal speech. PSYCHIATRIC: Appropriate mood and affect; insight and judgment normal. Data Data Last Documented VS Vital Signs Date Time Temp Pulse Resp B/P Pulse Ox O2 Delivery O2 Flow Rate FiO2 05/22/17 00:36 76 18 178/84 98 Room Air 05/21/17 22:17 98.1 Orders Electrocardiogram (05/21/17 22:21) B-Type Natriuretic Peptide (05/21/17 22:21) Ckmb (Isoenzyme) Profile (05/21/17 22:21) Complete Blood Count With Diff (05/21/17 22:21) Comprehensive Metabolic Panel (05/21/17 22:21) Magnesium (Mg) (05/21/17 22:21) Prothrombin Time / Inr (Pt) (05/21/17 22:21) Act Partial Throm Time (Ptt) (05/21/17 22:21) Troponin I (05/21/17 22:21) Lipase (05/21/17 22:21) Chest, Single Ap (05/21/17 22:21) Ecg Monitoring (05/21/17 22:21) Bilateral Bp Monitoring (05/21/17 22:21) Iv Access Insert/Monitor (05/21/17 22:21) Oximetry (05/21/17 22:21) Oxygen Administration (05/21/17 22:21) Aspirin Chew (Aspirin Chew) (05/21/17 22:30) Morphine Inj (Morphine Inj) (05/21/17 22:30) Sodium Chloride 0.9% Flush (Ns Flush) (05/21/17 22:30) Sodium Chlorid 0.9% 500 Ml Inj (Ns 500 M (05/21/17 22:30) Ct Pulmonary Angiogram (05/21/17 22:21) Ondansetron Inj (Zofran Inj) (05/21/17 22:30) Iohexol 350 Inj (Omnipaque 350 Inj) (05/22/17 00:31) Labetalol Inj (Trandate Inj) (05/22/17 01:00) Admit Order (Ed Use Only) (05/22/17 00:48) Labs Laboratory Tests Test 05/21/17 22:28 White Blood Count 12.2 TH/MM3 Red Blood Count 4.02 MIL/MM3 Hemoglobin 11.3 GM/DL Hematocrit 33.0 % Mean Corpuscular Volume 82.0 FL Mean Corpuscular Hemoglobin 28.1 PG Mean Corpuscular Hemoglobin 34.2 % Concent Red Cell Distribution Width 15.2 % Platelet Count 257 TH/MM3 Mean Platelet Volume 8.7 FL Neutrophils (%) (Auto) 65.2 % Lymphocytes (%) (Auto) 27.6 % Monocytes (%) (Auto) 6.1 % Eosinophils (%) (Auto) 0.8 % Basophils (%) (Auto) 0.3 % Neutrophils # (Auto) 8.0 TH/MM3 Lymphocytes # (Auto) 3.4 TH/MM3 Monocytes # (Auto) 0.7 TH/MM3 Eosinophils # (Auto) 0.1 TH/MM3 Basophils # (Auto) 0.0 TH/MM3 CBC Comment DIFF FINAL Differential Comment Prothrombin Time 10.4 SEC Prothromb Time International 0.9 RATIO Ratio Activated Partial 34.7 SEC Thromboplast Time Sodium Level 139 MEQ/L Potassium Level 3.4 MEQ/L Chloride Level 105 MEQ/L Carbon Dioxide Level 26.9 MEQ/L Anion Gap 7 MEQ/L Blood Urea Nitrogen 20 MG/DL Creatinine 1.04 MG/DL Estimat Glomerular Filtration 67 ML/MIN Rate Random Glucose 198 MG/DL Calcium Level 9.2 MG/DL Magnesium Level 2.0 MG/DL Total Bilirubin 0.3 MG/DL Aspartate Amino Transf 7 U/L (AST/SGOT) Alanine Aminotransferase 14 U/L (ALT/SGPT) Alkaline Phosphatase 113 U/L Total Creatine Kinase 86 U/L Troponin I LESS THAN 0.02 NG/ML B-Type Natriuretic Peptide 82 PG/ML Total Protein 7.3 GM/DL Albumin 3.3 GM/DL Lipase 67 U/L [facility] Medical Decision Making Medical Screen Exam Complete: Yes Emergency Medical Condition: Yes Medical Record Reviewed: Yes Interpretation(s) EKG reveals normal sinus rhythm with a rate 87. Nonspecific T wave changes with inverted T-wave noted in lead V6. Left ventricular hypertrophy by voltage. Laboratory Tests Test 05/21/17 22:28 White Blood Count 12.2 TH/MM3 Red Blood Count 4.02 MIL/MM3 Hemoglobin 11.3 GM/DL Hematocrit 33.0 % Mean Corpuscular Volume 82.0 FL Mean Corpuscular Hemoglobin 28.1 PG Mean Corpuscular Hemoglobin 34.2 % Concent Red Cell Distribution Width 15.2 % Platelet Count 257 TH/MM3 Mean Platelet Volume 8.7 FL Neutrophils (%) (Auto) 65.2 % Lymphocytes (%) (Auto) 27.6 % Monocytes (%) (Auto) 6.1 % Eosinophils (%) (Auto) 0.8 % Basophils (%) (Auto) 0.3 % Neutrophils # (Auto) 8.0 TH/MM3 Lymphocytes # (Auto) 3.4 TH/MM3 Monocytes # (Auto) 0.7 TH/MM3 Eosinophils # (Auto) 0.1 TH/MM3 Basophils # (Auto) 0.0 TH/MM3 CBC Comment DIFF FINAL Differential Comment Prothrombin Time 10.4 SEC Prothromb Time International 0.9 RATIO Ratio Activated Partial 34.7 SEC Thromboplast Time Sodium Level 139 MEQ/L Potassium Level 3.4 MEQ/L Chloride Level 105 MEQ/L Carbon Dioxide Level 26.9 MEQ/L Anion Gap 7 MEQ/L Blood Urea Nitrogen 20 MG/DL Creatinine 1.04 MG/DL Estimat Glomerular Filtration 67 ML/MIN Rate Random Glucose 198 MG/DL Calcium Level 9.2 MG/DL Magnesium Level 2.0 MG/DL Total Bilirubin 0.3 MG/DL Aspartate Amino Transf 7 U/L (AST/SGOT) Alanine Aminotransferase 14 U/L (ALT/SGPT) Alkaline Phosphatase 113 U/L Total Creatine Kinase 86 U/L Troponin I LESS THAN 0.02 NG/ML B-Type Natriuretic Peptide 82 PG/ML Total Protein 7.3 GM/DL Albumin 3.3 GM/DL Lipase 67 U/L CT pulmonary angiogram reveals no PE is identified. There is a suspicious nodule at the right lung apex measuring 2.4 cm. This is not visualized on the prior CT. Consider short term interval follow-up study in approximately 8 weeks. If this does not resolve, it will require further evaluation. Nonspecific enlarged mediastinal and right hilar lymph nodes. Differential Diagnosis Differential diagnosis includes acute coronary syndrome, STEMI, pulmonary embolism, pneumonia, pleural effusion, GERD, esophageal spasm, pancreatitis. Narrative Course IV was established, labs are drawn and sent, and the patient was placed on cardiac telemetry monitoring and continuous pulse oximetry monitoring. EKG was ordered and interpreted. CT pulmonary angiogram was ordered. The patient was administered aspirin, morphine, and Zofran. The patient's troponin is unremarkable. The patient's CT pulmonary angiogram is negative for PE, does reveal a lung nodule in the right lung apex measuring 2.4 cm that is not visualized and a prior CT. The patient was advised she would need a follow-up CT in 8 weeks. The patient's chest pain did improve, she will be a 23 hour observation to the chest pain center for serial cardiac enzymes and further evaluation by cardiology. The patient is comfortable with this plan of care. 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 Physician Communication Physician Communication The patient will be 23 hour observation to the chest pain Center. Diagnosis Primary Impression: Chest pain Qualified Code: R07.9 - Chest pain, unspecified type Admitting Information Admitting Physician Requests: Observation Condition: Stable Schwartz,Jeffrey Z. MD May 21, 2017 22:35
[2017-05-21] MEDS ORDERED: AMBI5TAB PO (22:38)
[2017-05-21] MEDS ORDERED: IPRA17I INH (22:38)
[2017-05-21] MEDS ORDERED: XARE20TA PO (22:38)
--- NOTE | 2017-05-21 22:41 | RADRPT ---
EXAM DATE/TIME: 05/21/2017 22:18 [facility] COMPARISON: CHEST SINGLE AP, March 18, 2017, 12:39. INDICATIONS : Chest pain. MEDICAL HISTORY : Renal insufficiency, chrnoic. Diabetes mellitus type 2. Chronic obstructive SURGICAL HISTORY : None. ENCOUNTER: Initial ACUITY: 1 day PAIN SCORE: 0/10 LOCATION: Bilateral chest FINDINGS: A single view of the chest demonstrates the lungs to be symmetrically aerated without evidence of mas s, infiltrate or effusion. The cardiomediastinal contours are unremarkable. Osseous structures are intact. CONCLUSION: No acute disease. Erik Perez MD on May 21, 2017 at 22:39 Board Certified Radiologist. This report was verified electronically.
[2017-05-21 23:02] LABS: BASOPHIL % 0.3 % (0.0-2.0); EOSINOPHIL # 0.1 TH/MM3 (0-0.4); EOSINOPHIL % 0.8 % (0.0-4.0); HEMO FLAGS DIFF FINAL; LYMPH % 27.6 % (9.0-44.0); LYMPHOCYTE # 3.4 TH/MM3 (1.0-4.8); MEAN CORPUSCULAR HEMOGLOBIN 28.1 PG (27.0-34.0); MEAN CORPUSCULAR HGB CONC 34.2 % (32.0-36.0); MONO % 6.1 % (0.0-8.0); NEUT % 65.2 % (16.0-70.0); PLATELET COUNT 257 TH/MM3 (150-450); RED BLOOD COUNT 4.02 MIL/MM3 (4.00-5.30); RED CELL DISTRIBUTION WIDTH 15.2 % (11.6-17.2); WHITE BLOOD COUNT 12.2 TH/MM3 (4.0-11.0)
[2017-05-21] MEDS ORDERED: BACL20TA PO (23:02)
[2017-05-21] MEDS ORDERED: MONT10TA2 PO (23:03)
[2017-05-21] MEDS ORDERED: AMLO10 PO (23:05)
[2017-05-21] MEDS ORDERED: VIST50CA PO (23:05)
[2017-05-21] MEDS ORDERED: NORT50CA PO (23:05)
[2017-05-21 23:21] LABS: APTT (PATIENT) 34.7 SEC (24.3-30.1); INTERNATIONAL NORMALIZED RATIO 0.9 RATIO; PROTHROMBIN TIME - PATIENT 10.4 SEC (9.8-11.6)
[2017-05-21 23:27] LABS: ANION GAP 7 MEQ/L (5-15); AST (GOT) 7 U/L (15-37); BICARBONATE 26.9 MEQ/L (21.0-32.0); BLOOD UREA NITROGEN 20 MG/DL (7-18); CHLORIDE 105 MEQ/L (98-107); GLOMERULAR FILTRATION RATE 67 ML/MIN (>89); POTASSIUM 3.4 MEQ/L (3.5-5.1); SODIUM (NA) 139 MEQ/L (136-145)
[2017-05-21 23:33] LABS: ALKALINE PHOSPHATASE 113 U/L (45-117); ALT (GPT) 14 U/L (10-53); TOTAL BILIRUBIN ADULT 0.3 MG/DL (0.2-1.0)
[2017-05-21 23:37] LABS: CREATINE KINASE 86 U/L (26-192)
[2017-05-22] MEDS ORDERED: IOHEXOL 350 MG/ML 10 ML VIAL (for RAD DIAG) IV ONE (00:31)
[2017-05-22 00:36] VITALS: BP 178/84; PULSE 76; RESP 18; O2SAT 98
--- NOTE | 2017-05-22 00:41 | RADRPT ---
EXAM DATE/TIME: 05/21/2017 23:59 [facility] COMPARISON: CT CERVICAL SPINE W/O CONTRAST, September 28, 2016, 13:02. CHEST SINGLE AP, May 21, 2017, 22:18. INDICATIONS : Chest pain and shortness of breath. IV CONTRAST: 75 cc Omnipaque 350 (iohexol) IV RADIATION DOSE: 11.71 CTDIvol (mGy) MEDICAL HISTORY : Hypertension. Chronic obstructive pulmonary disease. Cerebrovascular disease. SURGICAL HISTORY : Coronary artery stent. Fusion, cervical.Hysterectomy. ENCOUNTER: Initial ACUITY: 1 day PAIN SCALE: 10/10 LOCATION: Bilateral chest TECHNIQUE: Volumetric scanning of the chest was performed using a pulmonary embolism protocol MIP images were re constructed. Using automated exposure control and adjustment of the mA and/or kV according to patien t size, radiation dose was kept as low as reasonably achievable to obtain optimal diagnostic quality images. DICOM format image data is available electronically for review and comparison. Follow-up recommendations for incidentally detected pulmonary nodules are based at a minimum on nodul e size and patient risk factors according to Fleischner Society Guidelines. FINDINGS: PULMONARY ARTERIES: No filling defects are seen in the pulmonary arteries through the segmental level. LUNGS: There is an ovoid nodule at the left lung apex measuring 2.4 x 1.8 cm. Paraseptal emphysema is presen t in the upper lobes. There is linear atelectasis versus scar in the inferior aspect the left upper l obe. PLEURAE: There is no pleural thickening or pleural effusion. MEDIASTINUM: Heart and great vessels demonstrate no acute abnormality. There is calcification versus a stent in th e LAD. There is an enlarged lymph node in the superior mediastinum measuring 16 mm in short axis diam eter. Small lymph nodes are present throughout the mediastinum. There is also enlarged right hilar ly mph node measuring 15 mm in short axis diameter. MUSCULOSKELETAL: There are mild degenerative changes of the thoracic spine. Cervical spine hardware is present. MISCELLANEOUS: The visualized upper abdominal organs demonstrate no acute abnormality. CONCLUSION: 1. No PE is identified. 2. There is a suspicious nodule at the right lung apex measuring 2.4 cm. This is not visualized on th e prior CT. Consider short term interval followup study in approximately 8 weeks. If this does not re solve, it will require further evaluation. 3. Nonspecific enlarged mediastinal and right hilar lymph nodes. Mukund Nichole MD on May 22, 2017 at 0:33 Board Certified Radiologist. This report was verified electronically.
[2017-05-22] MEDS ORDERED: LABETALOL HCL 100 MG/20 ML VIAL IV PUSH ONE (01:00)
[2017-05-22] MEDS ORDERED: ACETAMINOPHEN/HYDROcodone 325 MG/7.5 MG TAB PO PRN (04:30)
[2017-05-22] MEDS ORDERED: ONDANSETRON HCL 4 MG/2 ML VIAL IV PRN (04:30)
[2017-05-22] MEDS ORDERED: SODIUM CHLORIDE 0.9% FLUSH 10 ML FLUSH IV FLUSH PRN (04:30)
[2017-05-22] MEDS ORDERED: NITROGLYCERIN 0.4 MG SL 25 TABS/BTL SL PRN (04:30)
[2017-05-22] MEDS ORDERED: ACETAMINOPHEN 500 MG CPLT PO PRN (04:30)
[2017-05-22] MEDS ORDERED: MORPHINE SULFATE 4 MG/ML INJ IV PRN (04:30)
[2017-05-22 04:33] VITALS: BP 175/79; PULSE 75; RESP 16; O2SAT 99
[2017-05-22 06:16] VITALS: O2SAT 99
[2017-05-22 07:23] LABS: CREATINE KINASE 65 U/L (26-192)
[2017-05-22 08:50] VITALS: BP 187/89; PULSE 83; RESP 21; O2SAT 99
[2017-05-22] MEDS ORDERED: SODIUM CHLORIDE 0.9% FLUSH 10 ML FLUSH IV FLUSH SCH (09:00)
[2017-05-22] MEDS ORDERED: ASPIRIN 325 MG TAB PO SCH (09:00)
[2017-05-22] MEDS ORDERED: NON-FORMULARY DRUG (Ranitidine 150 MG) PO SCH (09:45)
[2017-05-22] MEDS ORDERED: DEXTROSE 50% IN WATER 50 ML VIAL(D50) IV PRN (09:45)
[2017-05-22] MEDS ORDERED: RESP: ALBUTEROL 2.5 MG/IPRATROPIUM 0.5 MG NEB (PRN) INH (09:45)
[2017-05-22] MEDS ORDERED: GLUCAGON 1 MG/ML VIAL IM/SQ PRN (09:45)
[2017-05-22] MEDS ORDERED: NON-FORMULARY DRUG (Omeprazole 20 MG) PO SCH (09:45)
--- NOTE | 2017-05-22 09:56 | HHI.HP ---
[facility] Primary Care Physician Juan Ramon Jason MD Chief Complaint Chest, back, and neck pain History of Present Illness This is a 51-year-old female with history of CAD with a stent in 2011 that presents to ED complaining of right-sided lateral chest discomfort, back discomfort, and right-sided neck discomfort. Is been 2 days constant. Worsened with certain movements. She has noted a little shortness of breath or nausea with it. No diaphoresis. Cannot recall any trauma or injury that may have caused her discomfort. Cannot recall recent stress testing however upon review records she had a nonischemic Lexiscan in 2015. 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 Voices compliance with all her medications. Review of Systems General: Patient denies fevers, chills recent, and recent travel HEENT: Patient denies headache, sore throat, difficulty swallowing. Cardiovascular: Has the chest discomfort as mentioned above. Denies sensation of heart beating rapidly or irregularly. No syncope. Denies diaphoresis. Respiratory: She has been short of breath which is worse than her chronic shortness of breath with her COPD. Denies inspirational chest discomfort. Denies coughing wheezing or hemoptysis. GI: She has had some intermittent nausea. Patient denies vomiting, diarrhea, abdominal pain, bloody stools. Musculoskeletal: Patient denies joint pain or edema. Denies calf pain or edema. Neurovascular: Patient denies numbness, tingling, weakness in extremities. Denies headache. Endocrine: Denies polyuria and polydipsia. Hematologic: Denies easy bruising. Skin: Denies rash or itching. Past Family Social History Allergies: Coded Allergies: Cipro (Verified Allergy, Severe, SWELLING SOB, 05/21/17) Erythromycin (Verified Allergy, Severe, SWELLING SOB, 05/21/17) Tramadol (Verified Allergy, Severe, rash, 05/21/17) Vancomycin (Verified Allergy, Severe, SWELLING AND SOB, 05/21/17) *MDRO Multi-Drug Resistant Organism (Verified Adverse Reaction, Unknown, ) 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) MRSA PCR screen NEGATIVE 03/14/17 & 03/18/17 Cleared per Infection Control Past Medical History CAD with stents in 2011. Hypertension, diabetes, COPD, GERD, CVA 3 with residual left-sided weakness, tobacco abuse. Past Surgical History Cardiac catheterization with intervention in 2011. Reported Medications Reported Meds & Active Scripts Active Levemir Inj (Insulin Detemir) 1,000 unit/ 10 ML Vial 60 Units SQ BID Do not mix with any other Insulin. Bd Lancet Ultrafine 33G (Lancets) 1 Mis Mis Units ACHS Use to obtain blood for sugar checks Blood Glucose Test Strips Strips Strip 1 Ea .ROUTE DIRECTED Check blood sugar 4 times a day (before meals and at bedtime) Novolog Inj (Insulin Aspart) 1,000 Unit/10 Ml Vial 0-25 Units SQ ACHS Max dose at bedtime:( )units; sugars less than 70,(0) units; sugars 150-199,(5) units; sugars 200-249,(10) units; sugars 250-299,(15) units; sugars 300-349,(20)units; sugars greater than 349,(25)units Lidocaine Topical (Lidocaine HCl) 2 % Jel 1 Applic TOPICAL QID PRN Omeprazole 20 Mg Tab 20 Mg PO DAILY Metoprolol Tartrate 100 Mg Tab 100 Mg PO BID Albuterol Neb (Albuterol Sulfate) 2.5 Mg/3 Ml Neb 2.5 Mg NEB Q4HR NEB PRN Advair Diskus Inh (Fluticasone-Salmeterol Inh) 250-50 Mcg/Blist Aer 1 Puff INH BID Rinse mouth after use. Triamcinolone Topical (Triamcinolone Acetonide) 0.1% Cream 1 Applic TOPICAL BID Chantix Starting Month Juan (Varenicline) 0.5 mg X 11 & 1 mg X 42 Pack 1 Tab PO DIRECTED Nicotine Patch (Nicotine) 21 Mg/24 Hr Patch 21 Mg T-DERMAL DAILY Proair Hfa 8.5 GM Inh (Albuterol Sulfate) 90 Mcg/Act Aer 2 Puff INH Q4-6H PRN 108 mcg/actuation Ondansetron (Ondansetron HCl) 8 Mg Tab 8 Mg PO TID PRN Losartan (Losartan Potassium) 50 Mg Tab 50 Mg PO DAILY Fluticasone Nasal [place] 50 Mcg/Act Naspr 50 Mcg EACH NARE DAILY 50 mcg/spray Atrovent HFA 12.9 GM Inh (Ipratropium [place]) 17 Mcg/Act Aer 2 Puff INH QID Hydrocodone-Acetaminophen 10-325 mg Tab 1 Tab PO Q4-6HR PRN Paroxetine (Paroxetine HCl) 30 Mg Tab 30 Mg PO DAILY Buspirone (Buspirone HCl) 5 Mg Tab 5 Mg PO DAILY Ibuprofen 800 Mg Tab 800 Mg PO TID Nebulizer 1 Mis Mis 1 Ea .ROUTE DIRECTED Use with albuterol every 4 hours as needed for shortness of breath, wheezing. Aspirin 81 (Aspirin) 81 Mg Tabdr 81 Mg PO EVERY OTHER DAY Lovastatin 20 Mg Tab 20 Mg PO HS Lyrica (Pregabalin) 100 Mg Cap 100 Mg PO TID Reported Nortriptyline (Nortriptyline HCl) 50 Mg Cap 50 Mg PO HS Norvasc (Amlodipine Besylate) 10 Mg Tab 10 Mg PO DAILY Vistaril (Hydroxyzine Pamoate) 50 Mg Cap 50 Mg PO HS Singulair (Montelukast Sodium) 10 Mg Tab 10 Mg PO HS Baclofen 20 Mg Tab 20 Mg PO QID Ambien (Zolpidem Tartrate) 5 Mg Tab 5 Mg PO HS PRN Atrovent HFA 12.9 GM Inh (Ipratropium [place]) 17 Mcg/Act Aer 2 Puff INH Q6HR PRN Xarelto (Rivaroxaban) 20 Mg Tab 20 Mg PO DAILY Bd Insulin Syringe Ultraf 31G X 5/16" 1 ml (Insulin Syringe/Needle U-100) 1 Mis Mis Ea Abilify (Aripiprazole) 15 Mg Tab 15 Mg PO DAILY Ranitidine (Ranitidine HCl) 150 Mg Tab 150 Mg PO BID Tizanidine (Tizanidine HCl) 4 Mg Tab 4 Mg PO QID Active Ordered Medications Current Medications Medications (Trade) Dose Ordered Sig/Katharine Route Start Time Stop Time Status Last Admin (NS Flush) 2 ml UNSCH PRN IV FLUSH 05/22/17 04:30 (NS Flush) 2 ml BID IV FLUSH 05/22/17 09:00 05/22/17 09:27 (Tylenol) 500 mg Q4H PRN PO 05/22/17 04:30 (Steele 7.5-325 Mg) 1 tab Q4H PRN PO 05/22/17 04:30 05/22/17 09:27 (Morphine Inj) 2 mg Q4H PRN IV 05/22/17 04:30 (Zofran Inj) 4 mg Q6H PRN IV 05/22/17 04:30 (Nitrostat Sl) 0.4 mg Q5M PRN SL 05/22/17 04:30 (Aspirin) 325 mg DAILY PO 05/22/17 09:00 (Norvasc) 10 mg DAILY PO 05/22/17 09:45 UNV (Abilify) 15 mg DAILY PO 05/22/17 09:45 UNV (Buspar) 5 mg DAILY PO 05/22/17 09:45 UNV (Cozaar) 50 mg DAILY PO 05/22/17 09:45 UNV (Pravachol) 20 mg HS PO 05/22/17 21:00 UNV (Lopressor) 100 mg BID PO 05/22/17 09:45 UNV (Pamelor) 50 mg HS PO 05/22/17 21:00 UNV (Lyrica) 100 mg TID PO 05/22/17 13:00 UNV (Xarelto) 20 mg DAILY PO 05/22/17 09:45 UNV (Zanaflex) 4 mg QID PO 05/22/17 13:00 UNV Non-Formulary Medication 20 mg DAILY PO 05/22/17 09:45 UNV Non-Formulary Medication 30 mg DAILY PO 05/23/17 09:00 UNV Non-Formulary Medication 150 mg BID PO 05/22/17 09:45 UNV Family History There is family history of CAD. Social History Patient continues to smoke 1 pack of cigarettes daily and has done so for more than 30 years. Physical Exam Vital Signs Vital Signs Date Time Temp Pulse Resp B/P Pulse Ox O2 Delivery O2 Flow Rate FiO2 05/22/17 08:50 83 21 187/89 99 Nasal Cannula 2.00 05/22/17 06:16 99 Nasal Cannula 2.00 05/22/17 04:33 75 16 175/79 99 Room Air 05/22/17 00:36 76 18 178/84 98 Room Air 05/21/17 22:34 187/67 169/77 05/21/17 22:25 98 Room Air 05/21/17 22:25 98 Room Air 05/21/17 22:17 98.1 89 21 140/87 98 Physical Exam GENERAL: This is a well-nourished, well-developed patient, in no apparent distress. Patient speaks in clear complete sentences. Patient is pleasant. HEENT: Head is atraumatic and normocephalic. Neck is supple without lymphadenopathy and trachea is midline. No JVD or carotid bruits. CARDIOVASCULAR: Regular rate and rhythm without murmurs, gallops, or rubs. RESPIRATORY: Clear to auscultation. Breath sounds equal bilaterally. No wheezes , rales, or rhonchi. Right-sided lateral chest wall is tender when palpating the area as well as with twisting of the torso. Also discomfort and right upper back and with range of motion of her neck. No use of accessory muscles. GASTROINTESTINAL: Abdomen is nontender, nondistended. Abdomen soft. No obvious pulsatile mass or bruit. No CVA tenderness. Strong femoral pulses bilaterally. Normal bowel sounds in all quadrants. MUSCULOSKELETAL: There is discomfort with range of motion of her cervical spine. No spinous process point tenderness in palpating cervical, thoracic, or lumbar spine. There also some tenderness in palpating right upper back with discomfort with range of motion as well. Patient is moving upper and lower extremities freely. No calf tenderness or edema, no Homans sign. Strong pulses in upper and lower extremities. NEUROLOGICAL: Patient is alert and oriented. Cranial nerves 2-12 are grossly intact. There is a little bit of weakness in left side when compared to right maybe 4/5 which she states that this has been chronic. SKIN: No rash and turgor is normal. Laboratory Laboratory Tests Test 05/21/17 05/22/17 05/22/17 22:28 02:29 05:49 White Blood Count 12.2 Red Blood Count 4.02 Hemoglobin 11.3 Hematocrit 33.0 Mean Corpuscular Volume 82.0 Mean Corpuscular Hemoglobin 28.1 Mean Corpuscular Hemoglobin 34.2 Concent Red Cell Distribution Width 15.2 Platelet Count 257 Mean Platelet Volume 8.7 Neutrophils (%) (Auto) 65.2 Lymphocytes (%) (Auto) 27.6 Monocytes (%) (Auto) 6.1 Eosinophils (%) (Auto) 0.8 Basophils (%) (Auto) 0.3 Neutrophils # (Auto) 8.0 Lymphocytes # (Auto) 3.4 Monocytes # (Auto) 0.7 Eosinophils # (Auto) 0.1 Basophils # (Auto) 0.0 CBC Comment DIFF FINAL Differential Comment Prothrombin Time 10.4 Prothromb Time International 0.9 Ratio Activated Partial 34.7 Thromboplast Time Sodium Level 139 Potassium Level 3.4 Chloride Level 105 Carbon Dioxide Level 26.9 Anion Gap 7 Blood Urea Nitrogen 20 Creatinine 1.04 Estimat Glomerular Filtration 67 Rate Random Glucose 198 Calcium Level 9.2 Magnesium Level 2.0 Total Bilirubin 0.3 Aspartate Amino Transf 7 (AST/SGOT) Alanine Aminotransferase 14 (ALT/SGPT) Alkaline Phosphatase 113 Total Creatine Kinase 86 65 Troponin I LESS THAN 0.02 LESS THAN 0.02 LESS THAN 0.02 B-Type Natriuretic Peptide 82 Total Protein 7.3 Albumin 3.3 Lipase 67 Result Diagram: 05/21/17222705/21/172227 Imaging Last 48 hours Impressions Chest X-Ray 05/21/172220 Signed Impressions: Service Date/Time: Sunday, May 21, 2017 22:18 - CONCLUSION: No acute disease. Erik Perez MD CT Angiography 05/21/172220 Signed Impressions: Service Date/Time: Sunday, May 21, 2017 23:59 - CONCLUSION: 1. No PE is identified. 2. There is a suspicious nodule at the right lung apex measuring 2.4 cm. This is not visualized on the prior CT. Consider short term interval followup study in approximately 8 weeks. If this does not resolve, it will require further evaluation. 3. Nonspecific enlarged mediastinal and right hilar lymph nodes. Mukund Nichole MD Course EKGs have sinus rhythm without significant ST segment depression or elevation. Assessment and Plan Assessment and Plan * Atypical chest pain: Patient discomfort is atypical and appears musculoskeletal nature however she does have history of heart disease and has not had this recently evaluated continues to smoke and admits to poorly controlled diabetes. She will be seen by Dr. Joe of cardiology and the chest pain center undergo a Lexiscan as she does not walk well with a residual left-sided weakness status post CVA 3. She'll be discharged home if stress test is nonischemic with instructions to follow-up with PCP and blade operator. She is a hold her metformin for 48 hours secondary to IV contrast CT scan. * Lung nodules: This was discussed with the patient. She will need to have this reassessed for her primary care physician within 8 weeks. * Diabetes: Hold metformin for 48 hours otherwise resume medication. Follow diabetic diet. * Hypertension: Continue current medication. * Upper lipidemia: Continue current medication. * COPD: Continue current medications. Have when necessary DuoNeb's. Patient is to quit smoking. * The back abuse: Patient has been counseled on importance of smoking cessation. * History of CVA: Continue current medications. Patient needs to quit smoking. * GERD: Continue current medication. Patient is stable at this time. She is agreeable to this plan. I was notified by ED nurse that the patient wanted to leave and left against medical twice almost immediately upon arrival to the new room in [facility]. She had gone AMA before I was notified. Yrn Anderson May 22, 2017 09:56
--- NOTE | 2017-05-22 10:16 | HHI.DCPOC ---
Discharge Care Plan Diagnosis: (1) Chest pain, atypical (2) CAD (coronary artery disease) (3) H/O heart artery stent (4) Diabetes mellitus (5) Hyperlipidemia (6) Hypertension (7) COPD (chronic obstructive pulmonary disease) (8) Lung nodules Goals to Promote Your Health Will need repeat ct scan of lungs in 8 weeks.to reevaluate lung nodules. Discuss with your PCP in 1 week at next office visit. * To prevent worsening of your condition and complications * To maintain your health at the optimal level Directions to Meet Your Goals Take your medications as prescribed Follow your dietary instruction Follow activity as directed Keep your appointments as scheduled Take your immunizations and boosters as scheduled If your symptoms worsen call your PCP, if no PCP go to Urgent Care Center or Emergency Room Smoking is Dangerous to Your Health. Avoid second hand smoke Call the 24-hour hour crisis hotline for domestic abuse at Yrn Anderson May 22, 2017 10:16
[2017-05-22] MEDS ORDERED: METOPROLOL TARTRATE 100 MG TAB PO SCH (11:00)
[2017-05-22] MEDS ORDERED: INSULIN ASPART SUPPLEMENTAL SCALE SQ SCH (11:00)
[2017-05-22] MEDS ORDERED: KETOROLAC TROMETHAMINE 30 MG/ML (IVP) VIAL IVP ONE (11:30)
[2017-05-22] MEDS ORDERED: busPIRone HCL 5 MG TAB PO SCH (12:00)
[2017-05-22] MEDS ORDERED: ARIPiprazole 15 MG TAB PO SCH (12:00)
[2017-05-22] MEDS ORDERED: LOSARTAN 50 MG TAB PO SCH (12:00)
[2017-05-22] MEDS ORDERED: RIVAROXABAN 20 MG TAB PO SCH (12:00)
[2017-05-22] MEDS ORDERED: PREGABALIN 100 MG CAP PO SCH (13:00)
--- NOTE | 2017-05-22 17:06 | EKG ---
Date Performed: 05/22/2017 Time Performed: 02:16:25 PTAGE: 51 years EKG: Sinus rhythm POSSIBLE LEFT ATRIAL ENLARGEMENT POSSIBLE LEFT VENTRICULAR HYPERTROPHY NONSPECIFIC T-WAVE ABNORMALIT Y ABNORMAL ECG PREVIOUS TRACING : 05/21/2017 22.26 Since previous tracing, no significant change noted DOCTOR: Arik Joe Interpretating Date/Time 05/22/2017 17:04:54
--- NOTE | 2017-05-22 17:07 | EKG ---
Date Performed: 05/21/2017 Time Performed: 22:26:46 PTAGE: 51 years EKG: Sinus rhythm POSSIBLE LEFT ATRIAL ENLARGEMENT POSSIBLE LEFT VENTRICULAR HYPERTROPHY NONSPECIFIC T-WAVE ABNORMALIT Y ABNORMAL ECG PREVIOUS TRACING : 03/14/2017 17.02 Since previous tracing, no significant change noted DOCTOR: Arik Joe Interpretating Date/Time 05/22/2017 17:06:35
--- NOTE | 2017-05-22 17:11 | EKG ---
Date Performed: 05/22/2017 Time Performed: 05:59:23 PTAGE: 51 years EKG: Sinus rhythm POSSIBLE LEFT ATRIAL ENLARGEMENT POSSIBLE RIGHT VENTRICULAR CONDUCTION DELAY NONSPECIFIC T-WAVE ABNO RMALITY BORDERLINE ECG PREVIOUS TRACING : 05/22/2017 02.16 Since previous tracing, no significant change noted DOCTOR: Arik Joe Interpretating Date/Time 05/22/2017 17:10:10
[2017-05-22] MEDS ORDERED: NORTRIPTYLINE HCL 25 MG CAP PO SCH (21:00)
[2017-05-22] MEDS ORDERED: PRAVASTATIN SOD 20 MG TAB PO SCH (21:00)
[2017-05-23] MEDS ORDERED: NON-FORMULARY DRUG (Paroxetine 30 MG) PO SCH (09:00)
[2017-05-24] MEDS ORDERED: LOVA20TA PO (10:34)
== END 2017-05-22 11:56 | disposition left against medical advice (07) ==
LOC: NEPC 22:11 → NEDA 05-22 00:49 → NEDH 05-22 03:33
PROVIDERS: ADMIT Internal Medicine Interventional Cardiology; ATTEND Internal Medicine Interventional Cardiology
DX: R07.89 Other chest pain (principal); I25.10 Atherosclerotic heart disease of native coronary artery without angina pectoris; J44.9 Chronic obstructive pulmonary disease, unspecified; K21.9 Gastro-esophageal reflux disease without esophagitis; F17.200 Nicotine dependence, unspecified, uncomplicated; E78.5 Hyperlipidemia, unspecified; E11.9 Type 2 diabetes mellitus without complications; R91.8 Other nonspecific abnormal finding of lung field; Z86.73 Personal history of transient ischemic attack (TIA), and cerebral infarction without residual deficits; Z79.899 Other long term (current) drug therapy; Z98.61 Coronary angioplasty status; Z79.82 Long term (current) use of aspirin; Z79.4 Long term (current) use of insulin; Z79.01 Long term (current) use of anticoagulants; Z71.6 Tobacco abuse counseling; Z00.00 Encounter for general adult medical examination without abnormal findings; R20.2 Paresthesia of skin; R20.0 Anesthesia of skin; R06.02 Shortness of breath; R11.0 Nausea; R61 Generalized hyperhidrosis; M19.90 Unspecified osteoarthritis, unspecified site; F32.9 Major depressive disorder, single episode, unspecified; I25.2 Old myocardial infarction; G47.30 Sleep apnea, unspecified; D57.1 Sickle-cell disease without crisis; G89.29 Other chronic pain; M25.569 Pain in unspecified knee; M54.9 Dorsalgia, unspecified; I11.0 Hypertensive heart disease with heart failure; I50.9 Heart failure, unspecified
CPT/HCPCS: 71010; 71275; 80053; 82550; 83690; 83735; 83880; 84484; 85025; 85610; 85730; 93005; 96361; 96374; 96375; 99285; G0378; J2270; J2405; J7040; Q9967

== ENCOUNTER 2017-07-05 00:38 | Inpatient (IN) | payer MEDICAID ==
[~2017-07-05] VITALS: Ht 165.1 cm; Wt 86.9 kg
[2017-07-05] VITALS (24 sets, daily range): BP systolic 99–218; BP diastolic 55–102; PULSE 72–117; RESP 12–20; TEMP 98–100.5; O2SAT 89–100
[~2017-07-05 00:38] MED LIST changes: +AMBI5TAB PO; +AMLO10 PO; -AMLO10TA2 PO; +BACL20TA PO; -HYDR50TA15 PO; +MONT10TA2 PO; +NORT50CA PO; -OMEP20TA PO; +OMEP40CA2 PO; -VARE1PAK3 PO; +VARE1PAK5 PO; +VIST50CA PO; -ZOLP5TAB3 PO
[2017-07-05] MEDS ORDERED: ETOMIDATE 20 MG/10 ML VIAL ONE (00:46)
[2017-07-05] MEDS ORDERED: SUCCINYLCHOLINE CHLORIDE 200 MG/10 ML VIAL ONE (00:47)
[2017-07-05] MEDS ORDERED: PROPOFOL 1000 MG/100 ML INJ 100 ML ONE (00:53)
[2017-07-05] MEDS ORDERED: SODIUM CHLOR 0.9% 1000 ML INJ 1,000 ML IV SCH (00:54)
[2017-07-05] MEDS ORDERED: ETOMIDATE 20 MG/10 ML VIAL IV PUSH ONE (01:00)
[2017-07-05] MEDS ORDERED: PROPOFOL 1000 MG/100 ML INJ 100 ML IV PRN (01:00)
[2017-07-05] MEDS ORDERED: SODIUM CHLORIDE 0.9% FLUSH 5 ML FLUSH IV FLUSH PRN (01:00)
[2017-07-05] MEDS ORDERED: SUCCINYLCHOLINE CHLORIDE 100 MG/5 ML SYRINGE IV PUSH ONE (01:00)
--- NOTE | 2017-07-05 01:44 | PD ---
HPI Chief Complaint: OD/ Ingestion Time Seen by Provider: 00:54 Travel History International Travel<30 days: No Contact w/Intl Traveler<30days: No Traveled to known affect area: No History of Present Illness HPI 51-year-old female came to the emergency room brought by EMS as being found unresponsive by her boyfriend. When EMS arrived at the scene GCS was 3. As per them patient received total of 2.4 mg of Narcan in succession after which she was a little more responsive although GCS was never more than 10. Respiration was shallow and patient was put on nonrebreather and brought in emergently. Upon arrival GCS was 10 and the rest of the vital signs were within acceptable limits. Patient was nonverbal. There was a bag full of medications that were both her and her 's. Among others there was baclofen and hydrocodone. PFSH Past Medical History Narrative Medical List of her past medical, surgical, social and family history was reviewed from the nursing note. Hx Anticoagulant Therapy: Yes (xarelto) Arthritis: Yes Asthma: Yes Autoimmune Disease: No Blood Disorders: No Anxiety: No Depression: Yes Heart Rhythm Problems: No Cancer: Yes (UTERINE) Cardiac Catheterization: Yes (X6) Cardiovascular Problems: Yes (TX, STENTS X 3) High Cholesterol: Yes Chemotherapy: No Chest Pain: Yes Congestive Heart Failure: Yes COPD: Yes Cerebrovascular Accident: Yes (tia) Coronary Artery Disease: Yes Diabetes: Yes Patient Takes Glucophage: Yes Diminished Hearing: No Endocrine: Yes Gastrointestinal Disorders: Yes (GASTROPARESIS) GERD: Yes Genitourinary: No Headaches: No Hypertension: Yes Immune Disorder: No Implanted Vascular Access Dvce: No Musculoskeletal: Yes (chronic knee pain, chronic back pain) Neurologic: Yes (NEUROPATHY, CVA ) Psychiatric: Yes Reproductive: No Respiratory: Yes (copd, PE) Immunizations Current: Yes Migraines: No Myocardial Infarction: Yes Radiation Therapy: No Seizures: Yes (2000,2001,2002) Sickle Cell Disease: Yes (SICKLE CELL TRAIT) Sleep Apnea: Yes Thyroid Disease: No Ulcer: Yes Tetanus Vaccination: < 5 Years Influenza Vaccination: Yes ?: Unknown Menopausal: Yes : 10 Para: 7 Miscarriage: 3 Past Surgical History Abdominal Surgery: Yes (GALL BLADDER) Cardiac Surgery: Yes Section: Yes Cholecystectomy: Yes Coronary Stent: Yes (X2) Ear Surgery: No Endocrine Surgery: No Eye Surgery: No Genitourinary Surgery: No Gynecologic Surgery: Yes Hysterectomy: Yes Joint Replacement: Yes (left knee UPCOMING) Neurologic Surgery: Yes (NECK FUSED) Oral Surgery: No Thoracic Surgery: No Other Surgery: Yes (LEFT AXILLARY TUMOR REMOVED) Social History Alcohol Use: No Tobacco Use: Yes (1 PPD) Substance Use: No Allergies-Medications (Allergen,Severity, Reaction): Coded Allergies: ciprofloxacin (Unverified Allergy, Severe, SWELLING SOB, 07/05/17) erythromycin base (Unverified Allergy, Severe, SWELLING SOB, 07/05/17) tramadol (Unverified Allergy, Severe, rash, 07/05/17) vancomycin (Unverified Allergy, Severe, SWELLING AND SOB, 07/05/17) Comments History of her allergies reviewed from the nursing note. Reported Meds & Prescriptions Reported Meds & Active Scripts Active Paroxetine (Paroxetine HCl) 30 Mg Tab 30 Mg PO DAILY Abilify (Aripiprazole) 15 Mg Tab 15 Mg PO DAILY Chantix Continuing Month Juan (Varenicline) 1 Mg Juan 1 Mg PO BIDPC Omeprazole 40 Mg Cap 40 Mg PO DAILY Vistaril (Hydroxyzine Pamoate) 50 Mg Cap 1-2 Cap PO HS Lovastatin 20 Mg Tab 20 Mg PO HS Levemir Inj (Insulin Detemir) 1,000 unit/ 10 ML Vial 60 Units SQ BID Do not mix with any other Insulin. Bd Lancet Ultrafine 33G (Lancets) 1 Mis Mis Units ACHS Use to obtain blood for sugar checks Blood Glucose Test Strips Strips Strip 1 Ea .ROUTE DIRECTED Check blood sugar 4 times a day (before meals and at bedtime) Novolog Inj (Insulin Aspart) 1,000 Unit/10 Ml Vial 0-25 Units SQ ACHS Max dose at bedtime:( )units; sugars less than 70,(0) units; sugars 150-199,(5) units; sugars 200-249,(10) units; sugars 250-299,(15) units; sugars 300-349,(20)units; sugars greater than 349,(25)units Lidocaine Topical (Lidocaine HCl) 2 % Jel 1 Applic TOPICAL QID PRN Metoprolol Tartrate 100 Mg Tab 100 Mg PO BID Albuterol Neb (Albuterol Sulfate) 2.5 Mg/3 Ml Neb 2.5 Mg NEB Q4HR NEB PRN Advair Diskus Inh (Fluticasone-Salmeterol Inh) 250-50 Mcg/Blist Aer 1 Puff INH BID Rinse mouth after use. Triamcinolone Topical (Triamcinolone Acetonide) 0.1% Cream 1 Applic TOPICAL BID Nicotine Patch (Nicotine) 21 Mg/24 Hr Patch 21 Mg T-DERMAL DAILY Proair Hfa 8.5 GM Inh (Albuterol Sulfate) 90 Mcg/Act Aer 2 Puff INH Q4-6H PRN 108 mcg/actuation Ondansetron (Ondansetron HCl) 8 Mg Tab 8 Mg PO TID PRN Losartan (Losartan Potassium) 50 Mg Tab 50 Mg PO DAILY Fluticasone Nasal [place] 50 Mcg/Act Naspr 50 Mcg EACH NARE DAILY 50 mcg/spray Atrovent HFA 12.9 GM Inh (Ipratropium [place]) 17 Mcg/Act Aer 2 Puff INH QID Hydrocodone-Acetaminophen 10-325 mg Tab 1 Tab PO Q4-6HR PRN Buspirone (Buspirone HCl) 5 Mg Tab 5 Mg PO DAILY Ibuprofen 800 Mg Tab 800 Mg PO TID Nebulizer 1 Mis Mis 1 Ea .ROUTE DIRECTED Use with albuterol every 4 hours as needed for shortness of breath, wheezing. Aspirin 81 (Aspirin) 81 Mg Tabdr 81 Mg PO EVERY OTHER DAY Lyrica (Pregabalin) 100 Mg Cap 100 Mg PO TID Reported Nortriptyline (Nortriptyline HCl) 50 Mg Cap 50 Mg PO HS Norvasc (Amlodipine Besylate) 10 Mg Tab 10 Mg PO DAILY Singulair (Montelukast Sodium) 10 Mg Tab 10 Mg PO HS Baclofen 20 Mg Tab 20 Mg PO QID Ambien (Zolpidem Tartrate) 5 Mg Tab 5 Mg PO HS PRN Atrovent HFA 12.9 GM Inh (Ipratropium [place]) 17 Mcg/Act Aer 2 Puff INH Q6HR PRN Xarelto (Rivaroxaban) 20 Mg Tab 20 Mg PO DAILY Bd Insulin Syringe Ultraf 31G X 5/16" 1 ml (Insulin Syringe/Needle U-100) 1 Mis Mis Ea Ranitidine (Ranitidine HCl) 150 Mg Tab 150 Mg PO BID Tizanidine (Tizanidine HCl) 4 Mg Tab 4 Mg PO QID Narrative Medication List of home medications reviewed from the nursing note. Review of Systems Except as stated in HPI: all other systems reviewed are Neg Physical Exam Narrative GENERAL: Poorly responsive, moderate distress SKIN: Focused skin assessment warm/dry. HEAD: Atraumatic. Normocephalic. EYES: Pupils equal and round, 4 mm. No scleral icterus. No injection or drainage. ENT: No nasal bleeding or discharge. Mucous membranes pink and moist. NECK: Trachea midline. No JVD. CARDIOVASCULAR: Regular rate and rhythm. No murmur appreciated. RESPIRATORY: No accessory muscle use. Clear to auscultation. Breath sounds equal bilaterally. GASTROINTESTINAL: Abdomen soft, non-tender, nondistended. Hepatic and splenic margins not palpable. MUSCULOSKELETAL: No obvious deformities. No clubbing. No cyanosis. No edema. NEUROLOGICAL: GCS of 10 PSYCHIATRIC: Unable to assess Data Data Last Documented VS Orders Orders Etomidate Inj (Amidate Inj) (07/05/17 00:46) Succinylcholine Inj (Quelicin Inj) (07/05/17 00:47) Propofol 1000 Mg/100 Ml Inj (Diprivan 10 (07/05/17 00:53) Electrocardiogram (07/05/17 00:54) Ammonia (07/05/17 00:54) Complete Blood Count With Diff (07/05/17 00:54) Comprehensive Metabolic Panel (07/05/17 00:54) Creatine Kinase (Cpk) (07/05/17 00:54) Prothrombin Time / Inr (Pt) (07/05/17 00:54) Troponin I (07/05/17 00:54) Thyroid Stimulating Hormone (07/05/17 00:54) Urinalysis - C+S If Indicated (07/05/17 00:54) Lactic Acid Sepsis Protocol (07/05/17 00:54) Arterial Blood Gas (Abg) (07/05/17 00:54) Blood Culture (07/05/17 00:54) Chest, Single Ap (07/05/17 00:54) Ct Brain W/O Iv Contrast(Rout) (07/05/17 00:54) Blood Glucose (07/05/17 00:54) Ecg Monitoring (07/05/17 00:54) Iv Access Insert/Monitor (07/05/17 00:54) Oximetry (07/05/17 00:54) Sodium Chloride 0.9% Flush (Ns Flush) (07/05/17 01:00) Sodium Chlor 0.9% 1000 Ml Inj (Ns 1000 M (07/05/17 00:54) Drug Screen, Random Urine (07/05/17 00:54) Alcohol (Ethanol) (07/05/17 00:54) Tylenol (Acetaminophen) (07/05/17 00:54) Salicylates (Aspirin) (07/05/17 00:54) Succinylcholine Inj (Quelicin Inj) (07/05/17 01:00) Etomidate Inj (Amidate Inj) (07/05/17 01:00) Propofol 1000 Mg/100 Ml Inj (Diprivan 10 (07/05/17 01:00) ^ Infusion (07/05/17 00:54) RASS (07/05/17 00:54) Neurological Rass Scale MARLON.Q2H (07/05/17 00:54) Urinary Catheter Insert/Apply (07/05/17 00:54) Diana-Gastric Tube Insert/Mon (07/05/17 00:54) Admit Order (Ed Use Only) (07/05/17 01:58) CKMB (07/05/17 01:25) CKMB% (07/05/17 01:25) Labs Laboratory Tests Test 07/05/17 01:15 07/05/17 01:25 07/05/17 01:40 Urine Color YELLOW Urine Turbidity HAZY Urine pH 5.5 Urine Specific [place] 1.021 Urine Protein 30 mg/dL Urine Glucose (UA) 1000 mg/dL Urine Ketones NEG mg/dL Urine Occult Blood NEG Urine Nitrite NEG Urine Bilirubin NEG Urine Urobilinogen 2.0 MG/DL Urine Leukocyte Esterase NEG Urine RBC 1 /hpf Urine WBC 1 /hpf Urine Squamous Epithelial Cells 2 /hpf Urine Hyaline Casts 14 /lpf Urine Mucus FEW /lpf Microscopic Urinalysis Comment CATH-CULT NOT IND Urine Opiates Screen POS Urine Barbiturates Screen NEG Urine Amphetamines Screen NEG Urine Benzodiazepines Screen NEG Urine Cocaine Screen NEG Urine Cannabinoids Screen NEG White Blood Count 9.9 TH/MM3 Red Blood Count 5.27 MIL/MM3 Hemoglobin 14.2 GM/DL Hematocrit 44.9 % Mean Corpuscular Volume 85.3 FL Mean Corpuscular Hemoglobin 27.0 PG Mean Corpuscular Hemoglobin Concent 31.7 % Red Cell Distribution Width 15.1 % Platelet Count 308 TH/MM3 Mean Platelet Volume 8.0 FL Neutrophils (%) (Auto) 45.0 % Lymphocytes (%) (Auto) 47.3 % Monocytes (%) (Auto) 5.4 % Eosinophils (%) (Auto) 1.8 % Basophils (%) (Auto) 0.5 % Neutrophils # (Auto) 4.4 TH/MM3 Lymphocytes # (Auto) 4.7 TH/MM3 Monocytes # (Auto) 0.5 TH/MM3 Eosinophils # (Auto) 0.2 TH/MM3 Basophils # (Auto) 0.0 TH/MM3 CBC Comment DIFF FINAL Differential Comment Prothrombin Time 10.0 SEC Prothromb Time International Ratio 0.9 RATIO Blood Urea Nitrogen 25 MG/DL Creatinine 2.23 MG/DL Random Glucose 343 MG/DL Total Protein 9.0 GM/DL Albumin 3.9 GM/DL Calcium Level 9.3 MG/DL Alkaline Phosphatase 153 U/L Aspartate Amino Transf (AST/SGOT) 11 U/L Alanine Aminotransferase (ALT/SGPT) 22 U/L Total Bilirubin 0.2 MG/DL Sodium Level 137 MEQ/L Potassium Level 3.7 MEQ/L Chloride Level 101 MEQ/L Carbon Dioxide Level 25.3 MEQ/L Anion Gap 11 MEQ/L Estimat Glomerular Filtration Rate 28 ML/MIN Lactic Acid Level 2.5 mmol/L Ammonia 26 MCMOL/L Total Creatine Kinase 206 U/L Creatine Kinase MB 1.5 NG/ML Creatine Kinase MB % 0.7 % Troponin I LESS THAN 0.02 NG/ML Thyroid Stimulating Hormone 3rd Gen 0.608 uIU/ML Salicylates Level 4.2 MG/DL Acetaminophen Level LESS THAN 2.0 MCG/ML Ethyl Alcohol Level LESS THAN 3 MG/DL Blood Gas Puncture Site RT RADIAL Blood Gas Patient Temperature 98.6 Blood Gas HCO3 24 mmol/L Blood Gas Base Excess 0.4 mmol/L Blood Gas Oxygen Saturation 94 % Arterial Blood pH 7.43 Arterial Blood Partial Pressure CO2 37 mmHg Arterial Blood Partial Pressure O2 95 mmHG Arterial Blood Oxygen Content 17.1 Vol % Arterial Blood Carboxyhemoglobin 3.0 % Arterial Blood Methemoglobin 0.7 % Blood Gas Hemoglobin 12.9 G/DL Oxygen Delivery Device VENTILATOR Blood Gas Ventilator Setting Blood Gas Inspired Oxygen 80 % [facility] Medical Decision Making Medical Screen Exam Complete: Yes Emergency Medical Condition: Yes Medical Record Reviewed: Yes Interpretation(s) Twelve-lead EKG was reviewed by me. Normal sinus rhythm, normal axis, LVH by voltage criteria. Heart rate of 70 bpm. Differential Diagnosis Intracranial bleed, CVA, drug overdose, substance abuse, metabolic encephalopathy Narrative Course 1:42 AM given her poor responsive state I decided to intubate the patient. Patient was intubated successfully and tolerated the procedure well. Please refer to my procedure note. Currently awaiting for labs and the CT scan to be done and resulted. Patient is on a propofol drip for sedation. She'll be admitted in the ICU. Patient has a Shah and orogastric tube in. Awaiting for the chest x-ray for the tube placements. Critical Care Narrative Aggregate critical care time was 60 minutes. Time to perform other separately billable procedures was not included in the critical care time. My time did not include minutes spent treating any other patients simultaneously or on activities that did not directly contribute to the patient's treatment. The services I provided to this patient were to treat and/or prevent clinically significant deterioration that could result in: Unresponsive, respiratory failure I provided critical care services requiring my management, as noted below: Chart data review, documentation time, medication orders and management, vital sign assessments/reviewing monitor data, ordering and reviewing lab tests, ordering and interpreting/reviewing x-rays and diagnostic studies, care of the patient and discussion of the patient with the admitting physicians. Procedures Procedure Narrative After the risks and benefits were discussed the following procedure was performed: INTUBATION: The patient was put in optimal position for the procedure. Rapid sequence intubation was initiated by me using 20 milligrams of etomidate IV and 100 milligrams of succinylcholine IV. The patient was intubated with a 8 cuffed endotracheal tube. Tube placement was confirmed by visualization of the tube and balloon passing through the cords, capnometry and subsequent chest x-ray. Breath sounds were equal and well aerated bilaterally postintubation. No breath sounds over stomach. Patient tolerated procedure well. EKG Prior to Arrival: No Physician Communication Physician Communication Dr. Simpson Diagnosis Primary Impression: Unresponsive Additional Impressions: Respiratory failure Qualified Codes: J96.00 - Acute respiratory failure, unspecified whether with hypoxia or hypercapnia Acute renal failure Qualified Codes: N17.9 - Acute kidney failure, unspecified Admitting Information Admitting Physician Requests: it Tommy Rico MD Jul 05, 2017 01:44
[2017-07-05 01:51] LABS: BLOOD, URINE NEG (NEG); GLUCOSE,URINE 1000 mg/dL (NEG); HYALINE CAST, URINE 14 /lpf (RARE); KETONE, URINE NEG (NEG); MUCUS URINE FEW /lpf (OCC); NITRITE,URINE NEG (NEG); PH, URINE 5.5 (5.0-8.5); SQUAMOUS EPITHELIAL CELL URINE 2 /hpf (0-5); URINE COLOR YELLOW (YELLW/STRAW)
--- NOTE | 2017-07-05 01:51 | RADRPT ---
EXAM DATE/TIME: 07/05/2017 01:23 [facility] COMPARISON: CHEST SINGLE AP, May 21, 2017, 22:18. INDICATIONS : Post intubation MEDICAL HISTORY : Hypertension. Cerebrovascular disease. Chronic obstructive pulmonary disease . SURGICAL HISTORY : Coronary artery stent. Fusion, cervical.Hysterectomy. ENCOUNTER: Initial ACUITY: 1 day PAIN SCORE: Non-responsive. LOCATION: Bilateral chest FINDINGS: Patient has been intubated with ETT approximately 2.5 cm above the tian. NGT courses beyond the GE junction with tip omitted from the image. Lungs are clear. Cardiovascular contours are within normal limits. Remainder of the exam is unchanged. CONCLUSION: 1. ETT in good position. NGT beyond the GE junction with tip omitted from the image. 2. No acute abnormality or significant change. Benito Chu MD on July 05, 2017 at 1:49 Board Certified Radiologist. This report was verified electronically.
[2017-07-05 01:52] LABS: COMMENT (UR) CATH-CULT NOT IND; CULTURE IF INDICATED CATH CULTURE NOT IND
[2017-07-05 01:56] LABS: AUTOMATED NEUTROPHIL # 4.4 TH/MM3 (1.8-7.7); BASOPHIL % 0.5 % (0.0-2.0); EOSINOPHIL # 0.2 TH/MM3 (0-0.4); EOSINOPHIL % 1.8 % (0.0-4.0); HEMATOCRIT 44.9 % (35.0-46.0); HEMO FLAGS DIFF FINAL; LYMPH % 47.3 % (9.0-44.0); LYMPHOCYTE # 4.7 TH/MM3 (1.0-4.8); MEAN CELL VOLUME 85.3 FL (80.0-100.0); MEAN CORPUSCULAR HGB CONC 31.7 % (32.0-36.0); MONO % 5.4 % (0.0-8.0); PLATELET COUNT 308 TH/MM3 (150-450); RED BLOOD COUNT 5.27 MIL/MM3 (4.00-5.30); RED CELL DISTRIBUTION WIDTH 15.1 % (11.6-17.2); WHITE BLOOD COUNT 9.9 TH/MM3 (4.0-11.0)
[2017-07-05 01:57] LABS: INTERNATIONAL NORMALIZED RATIO 0.9 RATIO
[2017-07-05 02:01] LABS: ALT (GPT) 22 U/L (10-53); ANION GAP 11 MEQ/L (5-15); AST (GOT) 11 U/L (15-37); BICARBONATE 25.3 MEQ/L (21.0-32.0); BLOOD UREA NITROGEN 25 MG/DL (7-18); CHLORIDE 101 MEQ/L (98-107); GLOMERULAR FILTRATION RATE 28 ML/MIN (>89); POTASSIUM 3.7 MEQ/L (3.5-5.1); SODIUM (NA) 137 MEQ/L (136-145)
--- NOTE | 2017-07-05 02:08 | HHI.HP ---
HPI Service Critical Care Medicine Primary Care Physician Juan Ramon Jason MD Admission Diagnosis unresponsive, respiratory failure Diagnosis: Travel History International Travel<30 Days: No Contact w/Intl Traveler <30 Da: No Traveled to Known Affected Are: No History of Present Illness 51-year-old female has been brought by EMS as being found unresponsive by her boyfriend. When EMS arrived at the scene GCS was 3. As per them patient received total of 2.4 mg of Narcan in succession after which she was a little more responsive although GCS was never more than 10. Respiration was shallow and patient was put on nonrebreather and brought in emergently. Upon arrival GCS was 10 and the rest of the vital signs were within acceptable limits. Patient was nonverbal. There was a bag full of medications that were both her and her 's. Among others there was baclofen and hydrocodone. Patient was intubated by ED attending for an airway protection. Review of Systems ROS Unobtainable patient is sedated and intubated Past Family Social History Allergies: Coded Allergies: ciprofloxacin (Unverified Allergy, Severe, SWELLING SOB, 07/05/17) erythromycin base (Unverified Allergy, Severe, SWELLING SOB, 07/05/17) tramadol (Unverified Allergy, Severe, rash, 07/05/17) vancomycin (Unverified Allergy, Severe, SWELLING AND SOB, 07/05/17) *MDRO Multi-Drug Resistant Organism (Verified Adverse Reaction, Unknown, ) 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) MRSA PCR screen NEGATIVE 03/14/17 & 03/18/17 Cleared per Infection Control Past Medical History CAD with stents in 2011. Hypertension, Diabetes mellitus, COPD, GERD, CVA 3 with residual left-sided weakness, Tobacco use disorder Lung nodules Past Surgical History Cardiac catheterization 2012 with intervention Reported Medications Reported Meds & Active Scripts Active Paroxetine (Paroxetine HCl) 30 Mg Tab 30 Mg PO DAILY Abilify (Aripiprazole) 15 Mg Tab 15 Mg PO DAILY Chantix Continuing Month Juan (Varenicline) 1 Mg Juan 1 Mg PO BIDPC Omeprazole 40 Mg Cap 40 Mg PO DAILY Vistaril (Hydroxyzine Pamoate) 50 Mg Cap 1-2 Cap PO HS Lovastatin 20 Mg Tab 20 Mg PO HS Levemir Inj (Insulin Detemir) 1,000 unit/ 10 ML Vial 60 Units SQ BID Do not mix with any other Insulin. Bd Lancet Ultrafine 33G (Lancets) 1 Mis Mis Units ACHS Use to obtain blood for sugar checks Blood Glucose Test Strips Strips Strip 1 Ea .ROUTE DIRECTED Check blood sugar 4 times a day (before meals and at bedtime) Novolog Inj (Insulin Aspart) 1,000 Unit/10 Ml Vial 0-25 Units SQ ACHS Max dose at bedtime:( )units; sugars less than 70,(0) units; sugars 150-199,(5) units; sugars 200-249,(10) units; sugars 250-299,(15) units; sugars 300-349,(20)units; sugars greater than 349,(25)units Lidocaine Topical (Lidocaine HCl) 2 % Jel 1 Applic TOPICAL QID PRN Metoprolol Tartrate 100 Mg Tab 100 Mg PO BID Albuterol Neb (Albuterol Sulfate) 2.5 Mg/3 Ml Neb 2.5 Mg NEB Q4HR NEB PRN Advair Diskus Inh (Fluticasone-Salmeterol Inh) 250-50 Mcg/Blist Aer 1 Puff INH BID Rinse mouth after use. Triamcinolone Topical (Triamcinolone Acetonide) 0.1% Cream 1 Applic TOPICAL BID Nicotine Patch (Nicotine) 21 Mg/24 Hr Patch 21 Mg T-DERMAL DAILY Proair Hfa 8.5 GM Inh (Albuterol Sulfate) 90 Mcg/Act Aer 2 Puff INH Q4-6H PRN 108 mcg/actuation Ondansetron (Ondansetron HCl) 8 Mg Tab 8 Mg PO TID PRN Losartan (Losartan Potassium) 50 Mg Tab 50 Mg PO DAILY Fluticasone Nasal Davis 50 Mcg/Act Naspr 50 Mcg EACH NARE DAILY 50 mcg/spray Atrovent HFA 12.9 GM Inh (Ipratropium Bliss) 17 Mcg/Act Aer 2 Puff INH QID Hydrocodone-Acetaminophen 10-325 mg Tab 1 Tab PO Q4-6HR PRN Buspirone (Buspirone HCl) 5 Mg Tab 5 Mg PO DAILY Ibuprofen 800 Mg Tab 800 Mg PO TID Nebulizer 1 Mis Mis 1 Ea .ROUTE DIRECTED Use with albuterol every 4 hours as needed for shortness of breath, wheezing. Aspirin 81 (Aspirin) 81 Mg Tabdr 81 Mg PO EVERY OTHER DAY Lyrica (Pregabalin) 100 Mg Cap 100 Mg PO TID Reported Nortriptyline (Nortriptyline HCl) 50 Mg Cap 50 Mg PO HS Norvasc (Amlodipine Besylate) 10 Mg Tab 10 Mg PO DAILY Singulair (Montelukast Sodium) 10 Mg Tab 10 Mg PO HS Baclofen 20 Mg Tab 20 Mg PO QID Ambien (Zolpidem Tartrate) 5 Mg Tab 5 Mg PO HS PRN Atrovent HFA 12.9 GM Inh (Ipratropium Bliss) 17 Mcg/Act Aer 2 Puff INH Q6HR PRN Xarelto (Rivaroxaban) 20 Mg Tab 20 Mg PO DAILY Bd Insulin Syringe Ultraf 31G X 5/16" 1 ml (Insulin Syringe/Needle U-100) 1 Mis Mis Ea Ranitidine (Ranitidine HCl) 150 Mg Tab 150 Mg PO BID Tizanidine (Tizanidine HCl) 4 Mg Tab 4 Mg PO QID Active Ordered Medications Current Medications Medications (Trade) Dose Ordered Sig/Katharine Route PRN Reason Start Time Stop Time Status Last Admin Dose Admin Amlodipine Besylate (Norvasc) 10 mg DAILY PO 07/05/17 09:00 Aripiprazole (Abilify) 15 mg DAILY PO 07/05/17 09:00 Aspirin (Ecotrin Ec) 81 mg EVERY OTHER DAY PO 07/05/17 09:00 Baclofen (Lioresal) 20 mg QID PO 07/05/17 09:00 Buspirone HCl (Buspar) 5 mg DAILY PO 07/05/17 09:00 Losartan Potassium (Cozaar) 50 mg DAILY PO 07/05/17 09:00 Pravastatin Sodium (Pravachol) 20 mg HS PO 07/05/17 21:00 Metoprolol Tartrate (Lopressor) 100 mg BID PO 07/05/17 09:00 Montelukast Sodium (Singulair) 10 mg HS PO 07/05/17 21:00 Nortriptyline HCl (Pamelor) 50 mg HS PO 07/05/17 21:00 Pregabalin (Lyrica) 75 mg DAILY PO 07/05/17 09:00 Rivaroxaban (Xarelto) 20 mg DAILY PO 07/05/17 09:00 Tizanidine HCl (Zanaflex) 4 mg QID PO 07/05/17 09:00 Budesonide/ Formoterol Fumarate (Symbicort 160-4.5 Inh) 1 puff BID INH 07/05/17 09:00 Paroxetine HCl (Paxil) 30 mg DAILY PO 07/05/17 09:00 Sodium Chloride 1,000 ml @ 124 mls/hr Q8H4M IV 07/05/17 02:03 07/05/17 03:18 Sodium Chloride (NS Flush) 2 ml UNSCH PRN .XX FLUSH AFTER USING IV ACCESS 07/05/17 02:15 Sodium Chloride (NS Flush) 2 ml BID .XX 07/05/17 09:00 Acetaminophen (Tylenol) 650 mg Q6H PRN PO PAIN 1-10 AND/OR FEVER >101F 07/05/17 02:15 Famotidine (Pepcid Inj) 10 mg Q12HR IV PUSH 07/05/17 09:00 Midazolam HCl (Versed Inj) 2 mg Q1H PRN IV PUSH SEDATION 07/05/17 02:15 Ondansetron HCl (Zofran Inj) 4 mg Q6H PRN IV PUSH NAUSEA OR VOMITING 07/05/17 02:15 Albuterol/ Ipratropium (Duoneb Neb) 1 ampule Q6HR NEB INH 07/05/17 04:00 07/05/17 02:40 Albuterol/ Ipratropium (Duoneb Neb) 1 ampule Q2HR NEB PRN INH WHEEZING 07/05/17 02:15 Miscellaneous Information 1 Q361D XX 07/05/17 02:15 Chlorhexidine Gluconate (Chlorhexidine 2% Cloth) 3 pack Taper DAILY@04 TOP 07/05/17 04:00 07/01/18 03:59 Chlorhexidine Gluconate (Chlorhexidine 2% Cloth) 3 pack UNSCH PRN TOP HYGIENIC CARE 07/05/17 02:15 Senna/Docusate Sodium (Ashley-Colace) 1 tab BID PO 07/05/17 09:00 Magnesium Hydroxide (Milk Of Magnesia Liq) 30 ml Q12H PRN PO MILD - MODERATE CONSTIPATION 07/05/17 02:15 Sennosides (Senokot) 17.2 mg Q12H PRN PO MODERATE - SEVERE CONSTIPATION 07/05/17 02:15 Bisacodyl (Dulcolax Supp) 10 mg DAILY PRN RECTAL SEVERE CONSITIPATION 07/05/17 02:15 Lactulose (Lactulose Liq) 30 ml DAILY PRN PO SEVERE CONSITIPATION 07/05/17 02:15 Propofol 100 ml @ 2.7 mls/hr TITRATE PRN IV SEDATION 07/05/17 02:15 Chlorhexidine Gluconate (Peridex 0.12% Liq) 15 ml BID@08,20 MT 07/05/17 08:00 Family History Positive for coronary artery disease Social History Smokes pack per day for last 30 years No history of alcohol or illicit drug abuse Physical Exam Vital Signs Vital Signs Date Time Temp Pulse Resp B/P (MAP) Pulse Ox O2 Delivery O2 Flow Rate FiO2 07/05/17 01:18 83 16 210/90 (130) 100 Auto-Vent 07/05/17 01:00 12 100 Auto-Vent 07/05/17 00:50 100 80 07/05/17 00:48 72 16 99 Nasal Cannula 07/05/17 00:46 98.0 73 16 187/98 (127) 100 Physical Exam GENERAL: Elderly-appearing woman sedated and intubated SKIN: Warm and dry. HEAD: Normocephalic. EYES: No scleral icterus. No injection or drainage. NECK: Supple, trachea midline. No JVD or lymphadenopathy. CARDIOVASCULAR: Regular rate and rhythm without murmurs, gallops, or rubs. RESPIRATORY: Breath sounds equal bilaterally. No accessory muscle use. GASTROINTESTINAL: Abdomen soft, non-tender, nondistended. MUSCULOSKELETAL: No cyanosis, or edema. BACK: Nontender without obvious deformity. NEURO EXAM: GCS: M5 Vt E2 Mental Status: The patient is sedated and intubated Cranial Nerves: Pupils are round, reactive to light. Reflexes: Biceps, patellar, and Achilles are 2/4 bilaterally. No clonus. Laboratory Laboratory Tests Test 07/05/17 01:15 07/05/17 01:25 Urine Color YELLOW Urine Turbidity HAZY Urine pH 5.5 Urine Specific [place] 1.021 Urine Protein 30 Urine Glucose (UA) 1000 Urine Ketones NEG Urine Occult Blood NEG Urine Nitrite NEG Urine Bilirubin NEG Urine Urobilinogen 2.0 Urine Leukocyte Esterase NEG Urine RBC 1 Urine WBC 1 Urine Squamous Epithelial Cells 2 Urine Hyaline Casts 14 Urine Mucus FEW Microscopic Urinalysis Comment CATH-CULT NOT IND White Blood Count 9.9 Red Blood Count 5.27 Hemoglobin 14.2 Hematocrit 44.9 Mean Corpuscular Volume 85.3 Mean Corpuscular Hemoglobin 27.0 Mean Corpuscular Hemoglobin Concent 31.7 Red Cell Distribution Width 15.1 Platelet Count 308 Mean Platelet Volume 8.0 Neutrophils (%) (Auto) 45.0 Lymphocytes (%) (Auto) 47.3 Monocytes (%) (Auto) 5.4 Eosinophils (%) (Auto) 1.8 Basophils (%) (Auto) 0.5 Neutrophils # (Auto) 4.4 Lymphocytes # (Auto) 4.7 Monocytes # (Auto) 0.5 Eosinophils # (Auto) 0.2 Basophils # (Auto) 0.0 CBC Comment DIFF FINAL Differential Comment Prothrombin Time 10.0 Prothromb Time International Ratio 0.9 Lactic Acid Level 2.5 Ammonia 26 Salicylates Level 4.2 Date/Time Source Procedure Growth Status 07/05/17 01:15 Blood Peripheral Aerobic Blood Culture Pending Received 07/05/17 01:15 Blood Peripheral Anaerobic Blood Culture Pending Received Result Diagram: 07/05/175 Imaging Last [address] 07/05/1753 Signed Impressions: Service Date/Time: Wednesday, July 05, 2017 02:26 - CONCLUSION: 1. No acute intracranial abnormality. Benito Chu MD Chest X-Ray 07/05/1753 Signed Impressions: Service Date/Time: Wednesday, July 05, 2017 01:23 - CONCLUSION: 1. ETT in good position. NGT beyond the GE junction with tip omitted from the image. 2. No acute abnormality or significant change. Benito Chu MD Caprini VTE Risk Assessment Caprini VTE Risk Assessment: Mod/High Risk (score >= 2) Caprini Risk Assessment Model Point Value = 1 Point Value = 2 Point Value = 3 Point Value = 5 Age 41-60 Minor surgery BMI > 25 kg/m2 Swollen legs Varicose veins or History of unexplained or recurrent spontaneous Oral contraceptives or hormone replacement Sepsis (< 1 month) Serious lung disease, including pneumonia (< 1 month) Abnormal pulmonary function Acute myocardial infarction Congestive heart failure (< 1 month) History of inflammatory bowel disease Medical patient at bed rest Age 61-74 Arthroscopic surgery Major open surgery (> 45 min) Laparoscopic surgery (> 45 min) Malignancy Confined to bed (> 72 hours) Immobilizing plaster cast Central venous access Age >= 75 History of VTE Family history of VTE Factor V Leiden Prothrombin [id number] Lupus anticoagulant Anticardiolipin antibodies Elevated serum homocysteine Heparin-induced thrombocytopenia Other congenital or acquired thrombophilia Stroke (< 1 month) Elective arthroplasty Hip, pelvis, or leg fracture Acute spinal cord injury (< 1 month) Prophylaxis Regimen Total Risk Factor Score Risk Level Prophylaxis Regimen 0-1 Low Early ambulation 2 Moderate Order ONE of the following: *Sequential Compression Device (SCD) *Heparin 5000 units SQ BID 3-4 Higher Order ONE of the following medications: *Heparin 5000 units SQ TID *Enoxaparin/Lovenox 40 mg SQ daily (WT < 150 kg, CrCl > 30 mL/min) *Enoxaparin/Lovenox 30 mg SQ daily (WT < 150 kg, CrCl > 10-29 mL/min) *Enoxaparin/Lovenox 30 mg SQ BID (WT < 150 kg, CrCl > 30 mL/min) AND/OR *Sequential Compression Device (SCD) 5 or more Highest Order ONE of the following medications: *Heparin 5000 units SQ TID (Preferred with Epidurals) *Enoxaparin/Lovenox 40 mg SQ daily (WT < 150 kg, CrCl > 30 mL/min) *Enoxaparin/Lovenox 30 mg SQ daily (WT < 150 kg, CrCl > 10-29 mL/min) *Enoxaparin/Lovenox 30 mg SQ BID (WT < 150 kg, CrCl > 30 mL/min) AND *Sequential Compression Device (SCD) Assessment and Plan Assessment and Plan Respiratory failure - Intubated for an airway protection - Start weaning when neurologically improved - Vent bundle - CXR and ABG daily while intubated Altered mental status - Polypharmacy - Admit to ICU - Neuro checks per unit protocol - CT head negative - Supportive care Coronary artery disease - Aspirin - Pravastatin Hypertension - Norvasc - Losartan - Metoprolol COPD - Montelukast - Symbicort Depression/anxiety - Abilify - Buspirone - Paroxetine Chronic back pain - Baclofen - Lyrica - Zanaflex DVT GI prophylaxis - Teds SCDs - Xarelto and Pepcid Critical Care: The total critical care time was 35 minutes. Time to perform other separately billable procedures was not included in the critical care time. Voda,Jaylan MD Jul 05, 2017 02:08
[2017-07-05 02:10] LABS: ALCOHOL LESS THAN 3 MG/DL (0-5)
[2017-07-05 02:11] LABS: ALKALINE PHOSPHATASE 153 U/L (45-117); CREATINE KINASE 206 U/L (26-192); TOTAL BILIRUBIN ADULT 0.2 MG/DL (0.2-1.0)
[2017-07-05 02:14] LABS: ACETAMINOPHEN LESS THAN 2.0 MCG/ML (10.0-30.0)
[2017-07-05] MEDS ORDERED: ACETAMINOPHEN 325 MG TAB PO PRN (02:15)
[2017-07-05] MEDS ORDERED: CHLORHEXIDINE GLUCONATE 2 % 1 PACK (2 CLOTHS) TOP PRN (02:15)
[2017-07-05] MEDS ORDERED: MAGNESIUM HYDROXIDE SUSP 30 ML CUP PO PRN (02:15)
[2017-07-05] MEDS ORDERED: RESP: ALBUTEROL 2.5 MG/IPRATROPIUM 0.5 MG NEB (PRN) INH (02:15)
[2017-07-05] MEDS ORDERED: SENNOSIDES 8.6 MG TAB PO PRN (02:15)
[2017-07-05] MEDS ORDERED: LACTULOSE SYRUP 20 GM/30 ML CUP PO PRN (02:15)
[2017-07-05] MEDS ORDERED: SODIUM CHLORIDE 0.9% FLUSH 10 ML FLUSH PRN (02:15)
[2017-07-05] MEDS ORDERED: BISACODYL 10 MG SUPP RECTAL PRN (02:15)
[2017-07-05] MEDS ORDERED: MISCELLANEOUS NURSING INFORMATION XX SCH (02:15)
[2017-07-05 02:23] LABS: CKMB 1.5 NG/ML (0.5-3.6)
[2017-07-05] MEDS: RESP: ALBUTEROL 2.5 MG/IPRATROPIUM 0.5 MG NEB (SCH) INH ×4 (02:40→21:04)
[2017-07-05 02:45] LABS: BLOOD GAS BASE EXCESS 0.4 mmol/L (-2-2); BLOOD GAS HCO3 24 mmol/L (22-26); BLOOD GAS METHEMOGLOBIN 0.7 % (0-2); BLOOD GAS O2 HGB SATURATION 94 % (90-100); BLOOD GAS OXYGEN CONTENT 17.1 Vol % (12.0-20.0); BLOOD GAS PCO2 37 mmHg (38-42); BLOOD GAS PO2 95 mmHG (61-120); BLOOD GAS TOTAL HGB 12.9 G/DL (12.0-16.0); CRITICAL VALUE NO; OXYGEN DEVICE VENTILATOR; TEMP CORR TO 98.6
[2017-07-05 02:46] LABS: DRAW SITE RT RADIAL; FIO2 80 %; NUMBER OF ARTERIAL PUNCTURES 1; STAT YES; ULNAR PULSE PRESENT
--- NOTE | 2017-07-05 03:08 | RADRPT ---
EXAM DATE/TIME: 07/05/2017 02:26 [place] COMPARISON: CT BRAIN W/O CONTRAST, September 28, 2016, 13:02. INDICATIONS : Altered mental status. Possible overdose. RADIATION DOSE: 41.00 CTDIvol (mGy) MEDICAL HISTORY : Cerebrovascular disease. Seizures. Myocardial infarction.CHF. Diabetes. SURGICAL HISTORY : None. ENCOUNTER: Initial ACUITY: 1 day PAIN SCALE: Non-responsive LOCATION: cranial TECHNIQUE: Multiple contiguous axial images were obtained of the head. Using automated exposure control and adj ustment of the mA and/or kV according to patient size, radiation dose was kept as low as reasonably a chievable to obtain optimal diagnostic quality images. DICOM format image data is available electro nically for review and comparison. FINDINGS: CEREBRUM: The ventricles are normal for age. No evidence of midline shift, mass lesion, hemorrhage or acute in farction. No extra-axial fluid collections are seen. POSTERIOR FOSSA: The cerebellum and brainstem are intact. The 4th ventricle is midline. The cerebellopontine angle i s unremarkable. EXTRACRANIAL: The visualized portion of the orbits is intact. SKULL: The calvaria is intact. No evidence of skull fracture. CONCLUSION: 1. No acute intracranial abnormality. Benito Chu MD on July 05, 2017 at 3:06 Board Certified Radiologist. This report was verified electronically.
[2017-07-05] MEDS: SODIUM CHLOR 0.9% 1000 ML INJ 1,000 ML IV SCH ×2 (03:18→11:41)
[2017-07-05 03:37] LABS: LACTIC ACID GHOST NOT REPORTABLE
[2017-07-05] MEDS ORDERED: GLUCAGON 1 MG/ML VIAL OTHER PRN (03:45)
[2017-07-05] MEDS ORDERED: DEXTROSE 50% IN WATER 50 ML VIAL(D50) IV PRN (03:45)
[2017-07-05] MEDS: MIDAZOLAM HCL 2 MG/2 ML VIAL IV PUSH PRN (03:58)
[2017-07-05] MEDS: CHLORHEXIDINE GLUCONATE 2 % 1 PACK (2 CLOTHS) TOP SCH (03:58)
[2017-07-05] MEDS: PROPOFOL 1000 MG/100 ML INJ 100 ML IV PRN ×4 (03:59→21:20)
[2017-07-05] MEDS: LABETALOL HCL 100 MG/20 ML VIAL IV PUSH PRN (04:51)
[2017-07-05] MEDS: hydrALAZINE HCL 20 MG/ML VIAL IV PUSH PRN (05:24)
[2017-07-05] MEDS: INSULIN NovoLIN REGULAR SUPPLEMENTAL SCALE SQ SCH ×2 (06:35→09:22)
[2017-07-05] MEDS: METOPROLOL TARTRATE 100 MG TAB PO SCH ×2 (09:00→21:15)
[2017-07-05] MEDS: BUDESONIDE-FORMOTEROL 160/4.5 MCG INHALER INH SCH ×2 (09:00→21:00)
[2017-07-05] MEDS: ARIPiprazole 15 MG TAB PO SCH (09:00)
[2017-07-05] MEDS: LOSARTAN 50 MG TAB PO SCH (09:00)
[2017-07-05] MEDS: RIVAROXABAN 20 MG TAB PO SCH (09:00)
[2017-07-05] MEDS: ASPIRIN EC 81 MG TABEC PO SCH (09:00)
[2017-07-05] MEDS: PREGABALIN 75 MG CAP PO SCH (09:00)
[2017-07-05] MEDS: PARoxetine HCL 20 MG TAB PO SCH (09:22)
[2017-07-05] MEDS: DOCUSATE SODIUM 50 MG/SENNA 8.6 MG TAB PO SCH ×2 (09:22→21:00)
[2017-07-05] MEDS: CHLORHEXIDINE 0.12% (ORAL KIT) 15 ML CUP MT SCH ×2 (09:59→21:13)
[2017-07-05] MEDS: FAMOTIDINE 20 MG/2 ML VIAL IV PUSH SCH ×2 (09:59→21:14)
[2017-07-05] MEDS: SODIUM CHLORIDE 0.9% FLUSH 10 ML FLUSH SCH ×2 (10:00→21:14)
--- NOTE | 2017-07-05 11:31 | EKG ---
Date Performed: 07/05/2017 Time Performed: 01:56:56 PTAGE: 51 years EKG: Sinus rhythm POSSIBLE LEFT ATRIAL ENLARGEMENT POSSIBLE LEFT VENTRICULAR HYPERTROPHY NONSPECIFIC T-WAVE ABNORMALIT Y POSSIBLE PROLONGED QT INTERVAL ABNORMAL ECG PREVIOUS TRACING : 05/22/2017 05.59 Compared to previous tracing, possible prolonged QT interva l is now present. DOCTOR: Tan Duggan Interpretating Date/Time 07/05/2017 11:31:12
[2017-07-05] MEDS: BACLOFEN 20 MG TAB PO SCH ×2 (13:00→13:15)
[2017-07-05] MEDS: busPIRone HCL 5 MG TAB PO SCH (13:15)
[2017-07-05] MEDS: INSULIN DETEMIR 100 UNITS/ML VIAL SQ SCH ×2 (14:15→21:00)
[2017-07-05] MEDS: INSULIN ASPART SUPPLEMENTAL SCALE SQ SCH ×2 (16:00→21:00)
--- NOTE | 2017-07-05 16:32 | HHI.CCPN ---
Subjective Remarks/Hospital Course 51-year-old female has been brought by EMS as being found unresponsive by her boyfriend. When EMS arrived at the scene GCS was 3. As per them patient received total of 2.4 mg of Narcan in succession after which she was a little more responsive although GCS was never more than 10. Respiration was shallow and patient was put on nonrebreather and brought in emergently. Upon arrival GCS was 10 and the rest of the vital signs were within acceptable limits. Patient was nonverbal. There was a bag full of medications that were both her and her 's. Among others there was baclofen and hydrocodone. Patient was intubated by ED attending for an airway protection. Subjective: 07/05: The patient still unresponsive not following commands, continues on propofol infusion. Patient noted to be hyperglycemic blood glucose in the 300s , Levemir added to medication regimen high-dose sliding scale insulin coverage. Concern for possibly baclofen overdosage which was found in conjunction with opiates, poison control notified. CK ammonia lactate levels pending trending up. Repeat EKG pending. Objective Vital Signs Date Time Temp Pulse Resp B/P (MAP) Pulse Ox O2 Delivery O2 Flow Rate FiO2 07/05/17 14:00 92 07/05/17 12:40 100 40 07/05/17 12:00 100.5 20 104/55 (71) 07/05/17 01:18 Auto-Vent Intake and Output 07/05/17 07/05/17 07/06/17 08:00 16:00 00:00 Intake Total 0 ml Output Total 650 ml Balance -650 ml Result Diagram: 07/05/17 0125 07/05/17 0125 Other Results Laboratory Tests Test 07/05/17 01:40 Blood Gas Puncture Site RT RADIAL Blood Gas Patient Temperature 98.6 Blood Gas HCO3 24 mmol/L (22-26) Blood Gas Base Excess 0.4 mmol/L (-2-2) Blood Gas Oxygen Saturation 94 % (90-100) Arterial Blood pH 7.43 (7.380-7.420) Arterial Blood Partial Pressure CO2 37 mmHg (38-42) Arterial Blood Partial Pressure O2 95 mmHG (61-120) Arterial Blood Oxygen Content 17.1 Vol % (12.0-20.0) Arterial Blood Carboxyhemoglobin 3.0 % (0-4) Arterial Blood Methemoglobin 0.7 % (0-2) Blood Gas Hemoglobin 12.9 G/DL (12.0-16.0) Oxygen Delivery Device VENTILATOR Blood Gas Ventilator Setting Blood Gas Inspired Oxygen 80 % Imaging Last [address] 07/05/1753 Signed Impressions: Service Date/Time: Wednesday, July 05, 2017 02:26 - CONCLUSION: 1. No acute intracranial abnormality. Benito Chu MD Chest X-Ray 07/05/1753 Signed Impressions: Service Date/Time: Wednesday, July 05, 2017 01:23 - CONCLUSION: 1. ETT in good position. NGT beyond the GE junction with tip omitted from the image. 2. No acute abnormality or significant change. Benito Chu MD Objective Remarks GENERAL: Critically ill appearing female currently sedated and intubated SKIN: Warm and dry. HEAD: Normocephalic. EYES: No scleral icterus. No injection or drainage. NECK: Supple, trachea midline. No JVD or lymphadenopathy. Orotracheally intubated. CARDIOVASCULAR: Regular rate and rhythm without murmurs, gallops, or rubs. RESPIRATORY: Mechanical ventilation Breath sounds equal bilaterally. No accessory muscle use. GASTROINTESTINAL: Abdomen soft, non-tender, nondistended. MUSCULOSKELETAL: No cyanosis, or edema. BACK: Nontender without obvious deformity. NEURO EXAM: GCS: M6 V1 E4 Mental Status: The patient is sedated and intubated, on sedation holiday does not follow to commands Cranial Nerves: Pupils are round, reactive to light. Reflexes: Biceps, patellar, and Achilles are 2/4 bilaterally. No clonus. Urinary Catheter: Yes Assessment to: Continue Date of Insertion: Jul 05, 2017 A/P Assessment and Plan Respiratory failure - Intubated for an airway protection - Start weaning when clinically stable and neurologically improved - Vent bundle - CXR and ABG daily while intubated Altered mental status - Polypharmacy - Admit to ICU -Contact poison control, obtain ammonia level, monitor CMP - Neuro checks per unit protocol - CT head negative - Supportive care Coronary artery disease - Aspirin - Pravastatin -Obtain EKG -Trend lactate levels Hypertension - Norvasc - Losartan - Metoprolol COPD - Montelukast - Symbicort Depression/anxiety - Abilify - Buspirone - Paroxetine Chronic back pain - Baclofen - Lyrica - Zanaflex Hyperglycemia of critical illness -Levemir begin 5 units twice a day -Initiate high-dose sliding scale insulin protocol -Glucose monitoring per ICU protocol DVT GI prophylaxis - Teds SCDs - Xarelto and Pepcid-will hold Xarelto today, advanced OG tube per recommendations and then resume Xarelto tomorrow Dispo: Discussed with ATHLETIC MONITOR at bedside. my billing statement This patient remains critically ill with one or more organ systems which are or may become a threat to life. I have spent in excess of 31 minutes discontinuously in the care and management of this patient. This time is exclusive of procedures, and includes, but is not limited to, evaluation of the patient, review of the medical record, discussions with family, consultants, nursing staff, or respiratory therapy, and documentation in the medical record. Physician Jennifer Guevara MD Jul 05, 2017 16:32
[2017-07-05] MEDS ORDERED: SODIUM CHLOR 0.9% 1000 ML INJ 1,000 ML IV ONE (20:15)
[2017-07-05] MEDS: NORTRIPTYLINE HCL 25 MG CAP PO SCH (21:15)
[2017-07-05] MEDS: PRAVASTATIN SOD 20 MG TAB PO SCH (21:16)
[2017-07-05] MEDS: MONTELUKAST SODIUM 10 MG TAB PO SCH (21:16)
[2017-07-06] VITALS (37 sets, daily range): BP systolic 143–203; BP diastolic 64–96; PULSE 75–111; RESP 8–26; TEMP 99.1–100.7; O2SAT 98–100
[2017-07-06] MEDS: LABETALOL HCL 100 MG/20 ML VIAL IV PUSH PRN ×2 (02:10→18:25)
[2017-07-06] MEDS: RESP: ALBUTEROL 2.5 MG/IPRATROPIUM 0.5 MG NEB (SCH) INH ×4 (03:57→21:21)
[2017-07-06] MEDS: hydrALAZINE HCL 20 MG/ML VIAL IV PUSH PRN ×4 (04:19→23:31)
[2017-07-06] MEDS: CHLORHEXIDINE GLUCONATE 2 % 1 PACK (2 CLOTHS) TOP SCH (04:20)
[2017-07-06] MEDS: SODIUM CHLOR 0.9% 1000 ML INJ 1,000 ML IV SCH ×4 (04:21→21:05)
[2017-07-06] MEDS: PROPOFOL 1000 MG/100 ML INJ 100 ML IV PRN ×5 (04:22→23:32)
[2017-07-06 04:23] LABS: BASOPHIL % 0.2 % (0.0-2.0); EOSINOPHIL % 0.3 % (0.0-4.0); HEMATOCRIT 36.9 % (35.0-46.0); HEMO FLAGS DIFF FINAL; LYMPH % 12.8 % (9.0-44.0); LYMPHOCYTE # 1.9 TH/MM3 (1.0-4.8); MEAN CELL VOLUME 84.4 FL (80.0-100.0); MEAN CORPUSCULAR HEMOGLOBIN 26.8 PG (27.0-34.0); MEAN CORPUSCULAR HGB CONC 31.8 % (32.0-36.0); MONO % 6.3 % (0.0-8.0); NEUT % 80.4 % (16.0-70.0); PLATELET COUNT 244 TH/MM3 (150-450); RED BLOOD COUNT 4.37 MIL/MM3 (4.00-5.30); RED CELL DISTRIBUTION WIDTH 15.2 % (11.6-17.2); WHITE BLOOD COUNT 14.9 TH/MM3 (4.0-11.0)
[2017-07-06 05:06] LABS: ALKALINE PHOSPHATASE 101 U/L (45-117); ALT (GPT) 11 U/L (10-53); ANION GAP 10 MEQ/L (5-15); AST (GOT) 13 U/L (15-37); BICARBONATE 22.7 MEQ/L (21.0-32.0); BLOOD UREA NITROGEN 27 MG/DL (7-18); CHLORIDE 111 MEQ/L (98-107); CREATINE KINASE 311 U/L (26-192); GLOMERULAR FILTRATION RATE 53 ML/MIN (>89); MAGNESIUM 1.8 MG/DL (1.5-2.5); SODIUM (NA) 144 MEQ/L (136-145); TOTAL BILIRUBIN ADULT 0.3 MG/DL (0.2-1.0)
[2017-07-06 05:31] LABS: CKMB 2.3 NG/ML (0.5-3.6)
[2017-07-06] MEDS: INSULIN ASPART SUPPLEMENTAL SCALE SQ SCH ×4 (05:42→21:00)
[2017-07-06 06:09] LABS: BLOOD GAS BASE EXCESS -3.6 mmol/L (-2-2); BLOOD GAS CARBOXYHEMOGLOBIN 1.2 % (0-4); BLOOD GAS HCO3 19 mmol/L (22-26); BLOOD GAS METHEMOGLOBIN 1.4 % (0-2); BLOOD GAS O2 HGB SATURATION 95 % (90-100); BLOOD GAS PCO2 27 mmHg (38-42); BLOOD GAS PO2 92 mmHg (61-120); TEMP CORR TO 98.6
[2017-07-06 06:10] LABS: CRITICAL VALUE NO; FIO2 40 %; OXYGEN DEVICE VENT; VENT SETTINGS SEE COMMENTS
[2017-07-06 06:11] LABS: DRAW SITE RT RADIAL; NUMBER OF ARTERIAL PUNCTURES 1; STAT NO; ULNAR PULSE PRESENT
[2017-07-06] MEDS: LOSARTAN 50 MG TAB PO SCH (08:50)
[2017-07-06] MEDS: PARoxetine HCL 20 MG TAB PO SCH (08:50)
[2017-07-06] MEDS: PREGABALIN 75 MG CAP PO SCH (08:50)
[2017-07-06] MEDS: METOPROLOL TARTRATE 100 MG TAB PO SCH ×2 (08:51→20:53)
[2017-07-06] MEDS: busPIRone HCL 5 MG TAB PO SCH (08:51)
[2017-07-06] MEDS: DOCUSATE SODIUM 50 MG/SENNA 8.6 MG TAB PO SCH ×2 (08:51→21:00)
[2017-07-06] MEDS: SODIUM CHLORIDE 0.9% FLUSH 10 ML FLUSH SCH ×2 (08:52→22:04)
[2017-07-06] MEDS: ARIPiprazole 15 MG TAB PO SCH (08:53)
[2017-07-06] MEDS: FAMOTIDINE 20 MG/2 ML VIAL IV PUSH SCH ×2 (08:53→20:54)
[2017-07-06] MEDS: CHLORHEXIDINE 0.12% (ORAL KIT) 15 ML CUP MT SCH ×2 (08:54→20:52)
[2017-07-06] MEDS: INSULIN DETEMIR 100 UNITS/ML VIAL SQ SCH ×2 (09:00→21:01)
[2017-07-06] MEDS: BUDESONIDE-FORMOTEROL 160/4.5 MCG INHALER INH SCH ×2 (09:17→20:53)
--- NOTE | 2017-07-06 14:07 | EKG ---
Date Performed: 07/05/2017 Time Performed: 18:12:13 PTAGE: 51 years EKG: Sinus rhythm POSSIBLE LEFT ATRIAL ENLARGEMENT LEFT VENTRICULAR HYPERTROPHY AND ST-T CHANGE ABNORMAL ECG PREVIOUS TRACING : 07/05/2017 01.56 Since prior tracing, precordial ST changes are new, conside r ischemia. Clinical correlation recommended. DOCTOR: Norm Currie Interpretating Date/Time 07/06/2017 14:05:44
[2017-07-06] MEDS ORDERED: POTASSIUM CHLORIDE 25 MEQ EFFERVESCENT TAB PO ONE (16:30)
--- NOTE | 2017-07-06 16:31 | HHI.CCPN ---
Subjective Remarks/Hospital Course 51-year-old female has been brought by EMS as being found unresponsive by her boyfriend. When EMS arrived at the scene GCS was 3. As per them patient received total of 2.4 mg of Narcan in succession after which she was a little more responsive although GCS was never more than 10. Respiration was shallow and patient was put on nonrebreather and brought in emergently. Upon arrival GCS was 10 and the rest of the vital signs were within acceptable limits. Patient was nonverbal. There was a bag full of medications that were both her and her 's. Among others there was baclofen and hydrocodone. Patient was intubated by ED attending for an airway protection. Subjective: 07/05: The patient still unresponsive not following commands, continues on propofol infusion. Patient noted to be hyperglycemic blood glucose in the 300s , Levemir added to medication regimen high-dose sliding scale insulin coverage. Concern for possibly baclofen overdosage which was found in conjunction with opiates, poison control notified. CK ammonia lactate levels pending trending up. Repeat EKG pending. 07/06: No acute changes overnight. CPAP trials discontinue secondary to hypertensive episode, of note patient not following any commands with sedation holiday. The patient has a history of hypertension and when necessary antihypertensive also given. During the night the patient's propofol infusion level was increased to 75mcgs. Today IV sedation changed to Precedex infusion only, plan for CPAP trials to resumed. Objective Vital Signs Date Time Temp Pulse Resp B/P (MAP) Pulse Ox O2 Delivery O2 Flow Rate FiO2 07/06/17 16:00 95 07/06/17 15:29 99 40 07/06/17 12:00 99.9 18 143/64 (90) 07/05/17 01:18 Auto-Vent Intake and Output 07/06/17 07/06/17 07/07/17 08:00 16:00 00:00 Intake Total 0 ml Output Total 450 ml Balance -450 ml Result Diagram: 07/06/17 0411 07/06/17 0411 Other Results Laboratory Tests Test 07/06/17 05:52 Imaging Last [address] 07/05/17 0054 Signed Impressions: Service Date/Time: Wednesday, July 05, 2017 02:26 - CONCLUSION: 1. No acute intracranial abnormality. Benito Chu MD Chest X-Ray 07/05/17 0054 Signed Impressions: Service Date/Time: Wednesday, July 05, 2017 01:23 - CONCLUSION: 1. ETT in good position. NGT beyond the GE junction with tip omitted from the image. 2. No acute abnormality or significant change. Benito Chu MD Objective Remarks GENERAL: Critically ill appearing female currently sedated and intubated SKIN: Warm and dry. HEAD: Normocephalic. EYES: No scleral icterus. No injection or drainage. NECK: Supple, trachea midline. No JVD or lymphadenopathy. Orotracheally intubated. CARDIOVASCULAR: Regular rate and rhythm without murmurs, gallops, or rubs. RESPIRATORY: Mechanical ventilation Breath sounds equal bilaterally. No accessory muscle use. GASTROINTESTINAL: Abdomen soft, non-tender, nondistended. MUSCULOSKELETAL: No cyanosis, or edema. BACK: Nontender without obvious deformity. NEURO EXAM: GCS: M6 V1 E4 Mental Status: The patient is sedated and intubated, on sedation holiday does not follow to commands, no purposeful movement. Cranial Nerves: Pupils are round, reactive to light. Reflexes: Biceps, patellar, and Achilles are 2/4 bilaterally. No clonus. Date of Insertion: Jul 05, 2017 A/P Assessment and Plan Respiratory failure - Intubated for an airway protection - Start weaning when clinically stable and neurologically improved - Vent bundle - CXR and ABG daily while intubated -Resume CPAP trials, wean propofol infusion off begin Precedex infusion for ventilator synchrony and assistance with CPAP trials Altered mental status - Polypharmacy -Per poison control monitor CMP - Neuro checks per unit protocol-didn't use sedation holiday - CT head negative - Supportive care Coronary artery disease - Aspirin - Pravastatin -Resume Xarelto on 07/07, initiation of tube feeds -Obtain EKG -Trend lactate levels Hypertension - Norvasc - Losartan - Metoprolol COPD - Montelukast - Symbicort Depression/anxiety - Abilify - Buspirone - Paroxetine Chronic back pain - Baclofen-on hold - Lyrica-on hold - Zanaflex Hyperglycemia of critical illness -Levemir begin 5 units twice a day -Initiate high-dose sliding scale insulin protocol -Glucose monitoring per ICU protocol DVT GI prophylaxis - Teds SCDs - Xarelto and Pepcid-will resume Xarelto 07/07 with initiation of tube feeds Dispo: Discussed with MEAT APPRENTICE at bedside. Attempted to phone call to , to update on patient's medical condition ,no answer. This patient remains critically ill with one or more organ systems which are or may become a threat to life. I have spent in excess of 31 minutes discontinuously in the care and management of this patient. This time is exclusive of procedures, and includes, but is not limited to, evaluation of the patient, review of the medical record, discussions with family, consultants, nursing staff, or respiratory therapy, and documentation in the medical record. Physician Jennifer Guevara MD Jul 06, 2017 16:31
[2017-07-06] MEDS: DEXMEDETOMIDINE INJ 200 MCG in SODIUM CHLORIDE 0.9% INJ 50 ML IV PRN ×2 (16:48→18:10)
[2017-07-06] MEDS ORDERED: DEXMEDETOMIDINE INJ 1,000 MCG in SODIUM CHLOR 0.9% 250 ML INJ 240 ML IV PRN (19:00)
[2017-07-06] MEDS: PRAVASTATIN SOD 20 MG TAB PO SCH (20:53)
[2017-07-06] MEDS: MONTELUKAST SODIUM 10 MG TAB PO SCH (20:53)
[2017-07-06] MEDS: NORTRIPTYLINE HCL 25 MG CAP PO SCH (20:56)
[2017-07-06] MEDS: DEXMEDETOMIDINE INJ 1,000 MCG in SODIUM CHLOR 0.9% 250 ML INJ 240 ML IV PRN (21:02)
[2017-07-07] VITALS (61 sets, daily range): BP systolic 153–212; BP diastolic 67–104; PULSE 69–117; RESP 0–43; TEMP 97.5–99.9; O2SAT 94–100
[2017-07-07] MEDS: LABETALOL HCL 100 MG/20 ML VIAL IV PUSH PRN ×4 (02:19→15:23)
[2017-07-07] MEDS: SODIUM CHLOR 0.9% 1000 ML INJ 1,000 ML IV SCH ×3 (02:25→17:29)
[2017-07-07] MEDS: hydrALAZINE HCL 20 MG/ML VIAL IV PUSH PRN ×4 (03:43→20:29)
[2017-07-07] MEDS: CHLORHEXIDINE GLUCONATE 2 % 1 PACK (2 CLOTHS) TOP SCH (04:00)
[2017-07-07] MEDS: RESP: ALBUTEROL 2.5 MG/IPRATROPIUM 0.5 MG NEB (SCH) INH ×4 (04:04→20:59)
[2017-07-07] MEDS: PROPOFOL 1000 MG/100 ML INJ 100 ML IV PRN ×2 (04:13→08:53)
[2017-07-07] MEDS: DEXMEDETOMIDINE INJ 1,000 MCG in SODIUM CHLOR 0.9% 250 ML INJ 240 ML IV PRN (04:13)
--- NOTE | 2017-07-07 04:38 | RADRPT ---
EXAM DATE/TIME: 07/07/2017 03:22 [facility] COMPARISON: CHEST SINGLE AP, July 05, 2017, 1:23. INDICATIONS : Difficulty breathing. MEDICAL HISTORY : Cerebrovascular disease. Seizures. Myocardial infarction.CHF. Diabetes. SURGICAL HISTORY : None. ENCOUNTER: Subsequent ACUITY: 3 days PAIN SCORE: Non-responsive. LOCATION: Bilateral chest FINDINGS: Mild consolidation developing of both bases, left more so than right. A small left pleural effusion i s also possible. I don't see a pneumothorax. Heart size stable, upper limits of normal. Endotracheal tube tip is approximately 4 cm above the tian, unchanged. Nasogastric tube courses int o the stomach. CONCLUSION: Left greater than right basilar consolidation developing. Mukund Stroud MD on July 07, 2017 at 4:36 Board Certified Radiologist. This report was verified electronically.
[2017-07-07 05:48] LABS: HEMATOCRIT 34.1 % (35.0-46.0); MEAN CELL VOLUME 83.7 FL (80.0-100.0); MEAN CORPUSCULAR HEMOGLOBIN 26.9 PG (27.0-34.0); MEAN CORPUSCULAR HGB CONC 32.2 % (32.0-36.0); PLATELET COUNT 248 TH/MM3 (150-450); RED BLOOD COUNT 4.07 MIL/MM3 (4.00-5.30); RED CELL DISTRIBUTION WIDTH 14.9 % (11.6-17.2); REVIEW FLAG FINAL; WHITE BLOOD COUNT 15.4 TH/MM3 (4.0-11.0)
[2017-07-07 06:20] LABS: ALT (GPT) 12 U/L (10-53); ANION GAP 8 MEQ/L (5-15); AST (GOT) 14 U/L (15-37); BICARBONATE 20.6 MEQ/L (21.0-32.0); BLOOD UREA NITROGEN 16 MG/DL (7-18); CHLORIDE 114 MEQ/L (98-107); GLOMERULAR FILTRATION RATE 124 ML/MIN (>89); MAGNESIUM 1.7 MG/DL (1.5-2.5); POTASSIUM 3.3 MEQ/L (3.5-5.1); SODIUM (NA) 143 MEQ/L (136-145)
[2017-07-07 06:25] LABS: ALKALINE PHOSPHATASE 434 U/L (45-117); TOTAL BILIRUBIN ADULT 0.4 MG/DL (0.2-1.0)
[2017-07-07] MEDS: INSULIN ASPART SUPPLEMENTAL SCALE SQ SCH ×4 (06:43→21:12)
[2017-07-07 06:50] LABS: BLOOD GAS BASE EXCESS -6.4 mmol/L (-2-2); BLOOD GAS CARBOXYHEMOGLOBIN 1.1 % (0-4); BLOOD GAS HCO3 17 mmol/L (22-26); BLOOD GAS METHEMOGLOBIN 1.2 % (0-2); BLOOD GAS O2 HGB SATURATION 96 % (90-100); BLOOD GAS OXYGEN CONTENT 18.7 Vol % (12.0-20.0); BLOOD GAS PCO2 28 mmHg (38-42); BLOOD GAS PO2 132 mmHg (61-120); BLOOD GAS TOTAL HGB 13.7 G/DL (12.0-16.0); CRITICAL VALUE NO; OXYGEN DEVICE VENT; TEMP CORR TO 98.6
[2017-07-07 06:51] LABS: DRAW SITE RT RADIAL; FIO2 40 %; NUMBER OF ARTERIAL PUNCTURES 1; STAT NO; ULNAR PULSE PRESENT; VENT SETTINGS SEE COMMENTS
[2017-07-07] MEDS: LOSARTAN 50 MG TAB PO SCH (08:10)
[2017-07-07] MEDS: PARoxetine HCL 20 MG TAB PO SCH (08:10)
[2017-07-07] MEDS: busPIRone HCL 5 MG TAB PO SCH (08:10)
[2017-07-07] MEDS: NORTRIPTYLINE HCL 25 MG CAP PO SCH (08:10)
[2017-07-07] MEDS: PREGABALIN 75 MG CAP PO SCH (08:11)
[2017-07-07] MEDS: METOPROLOL TARTRATE 100 MG TAB PO SCH ×2 (08:11→21:00)
[2017-07-07] MEDS: BUDESONIDE-FORMOTEROL 160/4.5 MCG INHALER INH SCH ×2 (08:11→21:12)
[2017-07-07] MEDS: SODIUM CHLORIDE 0.9% FLUSH 10 ML FLUSH SCH ×2 (08:11→20:12)
[2017-07-07] MEDS: DOCUSATE SODIUM 50 MG/SENNA 8.6 MG TAB PO SCH ×2 (08:11→21:00)
[2017-07-07] MEDS: FAMOTIDINE 20 MG/2 ML VIAL IV PUSH SCH ×2 (08:12→21:14)
[2017-07-07] MEDS: ASPIRIN EC 81 MG TABEC PO SCH (08:12)
[2017-07-07] MEDS: CHLORHEXIDINE 0.12% (ORAL KIT) 15 ML CUP MT SCH ×2 (08:14→20:12)
[2017-07-07] MEDS: INSULIN DETEMIR 100 UNITS/ML VIAL SQ SCH ×2 (08:15→21:11)
[2017-07-07] MEDS: ARIPiprazole 15 MG TAB PO SCH (08:52)
[2017-07-07] MEDS: RIVAROXABAN 20 MG TAB PO SCH (09:00)
--- NOTE | 2017-07-07 10:48 | HHI.CCPN ---
Subjective Remarks/Hospital Course 51-year-old female has been brought by EMS as being found unresponsive by her boyfriend. When EMS arrived at the scene GCS was 3. As per them patient received total of 2.4 mg of Narcan in succession after which she was a little more responsive although GCS was never more than 10. Respiration was shallow and patient was put on nonrebreather and brought in emergently. Upon arrival GCS was 10 and the rest of the vital signs were within acceptable limits. Patient was nonverbal. There was a bag full of medications that were both her and her 's. Among others there was baclofen and hydrocodone. Patient was intubated by ED attending for an airway protection. Subjective: 07/05: The patient still unresponsive not following commands, continues on propofol infusion. Patient noted to be hyperglycemic blood glucose in the 300s , Levemir added to medication regimen high-dose sliding scale insulin coverage. Concern for possibly baclofen overdosage which was found in conjunction with opiates, poison control notified. CK ammonia lactate levels pending trending up. Repeat EKG pending. 07/06: No acute changes overnight. CPAP trials discontinue secondary to hypertensive episode, of note patient not following any commands with sedation holiday. The patient has a history of hypertension and when necessary antihypertensive also given. During the night the patient's propofol infusion level was increased to 75mcgs. Today IV sedation changed to Precedex infusion only, plan for CPAP trials to resumed. 07/07: Gas exchange acceptable. Agitated when light. Will extubate on precedex and sort out BP issues after. Neuro status unclear but she has plenty of respiratory drive. Objective Vital Signs Date Time Temp Pulse Resp B/P (MAP) Pulse Ox O2 Delivery O2 Flow Rate FiO2 07/07/17 10:00 80 07/07/17 07:54 99 40 07/07/17 07:00 0 198/85 (122) 07/07/17 04:00 97.7 07/05/17 01:18 Auto-Vent Intake and Output 07/07/17 07/07/17 07/08/17 08:00 16:00 00:00 Intake Total 173 ml 100 ml Output Total 1801 ml Balance -1628 ml 100 ml Result Diagram: 07/07/17 0437 07/07/17 0437 Other Results Laboratory Tests Test 07/07/17 06:35 Blood Gas Puncture Site RT RADIAL Blood Gas Patient Temperature 98.6 Blood Gas HCO3 17 mmol/L (22-26) Blood Gas Base Excess -6.4 mmol/L (-2-2) Blood Gas Oxygen Saturation 96 % (90-100) Arterial Blood pH 7.41 (7.380-7.420) Arterial Blood Partial Pressure CO2 28 mmHg (38-42) Arterial Blood Partial Pressure O2 132 mmHg (61-120) Arterial Blood Oxygen Content 18.7 Vol % (12.0-20.0) Arterial Blood Carboxyhemoglobin 1.1 % (0-4) Arterial Blood Methemoglobin 1.2 % (0-2) Blood Gas Hemoglobin 13.7 G/DL (12.0-16.0) Oxygen Delivery Device VENT Blood Gas Ventilator Setting SEE COMMENTS Blood Gas Inspired Oxygen 40 % Imaging Last [address] 07/05/1753 Signed Impressions: Service Date/Time: Wednesday, July 05, 2017 02:26 - CONCLUSION: 1. No acute intracranial abnormality. Benito Chu MD Chest X-Ray 07/05/1753 Signed Impressions: Service Date/Time: Wednesday, July 05, 2017 01:23 - CONCLUSION: 1. ETT in good position. NGT beyond the GE junction with tip omitted from the image. 2. No acute abnormality or significant change. Benito Chu MD Objective Remarks GENERAL: Critically ill appearing female currently lightly sedated and intubated SKIN: Warm and dry. HEAD: Normocephalic. EYES: No conjunctival icterus. No injection or drainage. NECK: Supple, trachea midline. Orotracheally intubated. CARDIOVASCULAR: Regular rate and rhythm without murmurs, gallops, or rubs. RESPIRATORY: Mechanical ventilation Breath sounds equal bilaterally. No adventitious sounds. GASTROINTESTINAL: Abdomen soft, non-tender, nondistended. BS active. MUSCULOSKELETAL: No cyanosis, or edema. Well perfused. NEURO EXAM: Sedated. Moves 4 limbs with strength. [place]. Date of Insertion: Jul 05, 2017 A/P Assessment and Plan Respiratory failure - Intubated for an airway protection - Start weaning when clinically stable and neurologically improved - Vent bundle - CXR and ABG daily while intubated -Resume SB trials Altered mental status - Polypharmacy - Per poison control monitor CMP - Neuro checks per unit protocol-didn't use sedation holiday - CT head negative - Supportive care Coronary artery disease - Aspirin - Pravastatin -Resume Xarelto on 07/07, d/c tube feeds -Obtain EKG Hypertension - Norvasc - Losartan - Metoprolol COPD - Montelukast - Symbicort Depression/anxiety - Abilify - Buspirone - Paroxetine Chronic back pain - Baclofen-on hold - Lyrica-on hold - Zanaflex Hyperglycemia of critical illness -Levemir begin 5 units twice a day -Initiate high-dose sliding scale insulin protocol -Glucose monitoring per ICU protocol DVT GI prophylaxis - Teds SCDs - Xarelto and Pepcid-will resume xarelto after extubation Dispo: Discussed with DIGITAL MARKETING APPRENTICE at bedside. Overall impression: Improving respiratory status. Stable hemodynamics aside from chronic hypertension. Try to extubate and sort out her BP problems. Alhaji Hou MD Jul 07, 2017 10:48
[2017-07-07] MEDS ORDERED: POTASSIUM PHOSPHATE INJ 30 MMOL in SODIUM CHLOR 0.9% 250 ML INJ 250 ML IV PRN (11:00)
[2017-07-07] MEDS ORDERED: POTASSIUM PHOSPHATE MONOBASIC 500 MG TAB PO/TUBE PRN (11:00)
[2017-07-07] MEDS ORDERED: MAGNESIUM SULFATE INJ 2 GM in SODIUM CHLORIDE 0.9% INJ 96 ML IV PRN (11:00)
[2017-07-07] MEDS ORDERED: POTASSIUM PHOSPHATE MONOBASIC 500 MG TAB PO PRN (11:00)
[2017-07-07] MEDS ORDERED: SODIUM PHOSPHATE INJ 30 MMOL in SODIUM CHLOR 0.9% 250 ML INJ 240 ML IV PRN (11:00)
[2017-07-07] MEDS ORDERED: MAGNESIUM OXIDE 400 MG TAB PO PRN (11:00)
[2017-07-07] MEDS ORDERED: POTASSIUM CHLORIDE 25 MEQ EFFERVESCENT TAB PO PRN (11:00)
[2017-07-07] MEDS ORDERED: MAGNESIUM SULFATE INJ 4 GM in SODIUM CHLORIDE 0.9% INJ 92 ML IV PRN (11:00)
[2017-07-07] MEDS ORDERED: POTASSIUM CHLOR 40 MEQ PREMIX 100 ML IV PRN ×2 (11:00)
--- NOTE | 2017-07-07 13:08 | HHI.HP ---
[facility] Service [facility] Medicine Primary Care Physician Juan Ramon Jason MD Admission Diagnosis unresponsive, respiratory failure Diagnoses: International Travel<30 Days: No Contact w/Intl Traveler<30days: No Known Affected Area: No History of Present Illness 51 year old female with a history of diabetes, seizure disorder, multiple CVA's , sickle cell trait, depression, anxiety, was brought by EMS after being found unresponsive by her . Her GCS at the time of EMS arrival was 3. She received 2.4 mg of Narcan and GCS improved to a 10. Respirations were shallow and patient was placed on a non-rebreather mask and brought to the hospital. Upon arrival to the hospital her GCS was 10 and vital signs were otherwise stable. She was nonverbal at the time. There was a bag full of medications that were both her and her 's. Included in the medications were baclofen and hydrocodone. She was intubated to protect her airway. (history to this point pulled from prior notes). I visited the patient in the ICU. She was extubated at 11 AM and has stable respiratory status. She is awake and alert. She has mild confusion but is answering some of my questions. She knows her name, the year, and where she is. She does not know her birthday or the month. She has no recollection at all about what brought her in. She is not able to tell me what her medical problems are other than heart disease. She is currently weaned of sedation. Since being here she has had some issues with hyperglycemia and is currently on high dose sliding scale insulin and Levemir as well. She has also had difficulty with her blood pressures, and he BP currently is 196/81. CT head was negative for acute hemorrhage. Otherwise she is not reporting any pain except some diffuse mild crampy abdominal pain. She has some coughing and congestion. No chest pain or shortness of breath currently. No calf tenderness. Her is unfortunately not in the room currently for more details on the history. She is a patient of Dr. Jason in the [facility]. Of note, she had a hospital admission on 03/14/17 for acute respiratory distress that resulted in intubation and a short stay in the ICU. (Kyle Courtney MD R3) Review of Systems Constitutional: COMPLAINS OF: Change in appetite, DENIES: Fatigue, Fever, Chills Eyes: DENIES: Blurred vision, Vision loss, Double Vision Ears, nose, mouth, throat: DENIES: Nasal discharge, Running Nose Respiratory: COMPLAINS OF: Cough, Sputum production, DENIES: Wheezing, Hemoptysis, Shortness of breath Cardiovascular: DENIES: Chest pain, Dyspnea on Exertion, Orthopnea Gastrointestinal: COMPLAINS OF: Abdominal pain, DENIES: Black stools, Bloody stools, Constipation, Diarrhea, Nausea, Vomiting Musculoskeletal: DENIES: Joint pain, Stiffness, Back pain, Neck pain Hematologic/lymphatic: DENIES: Lymphadenopathy Neurologic: DENIES: Headache, Seizures Psychiatric: DENIES: Anxiety, Confusion, Depression, Agitation (Kyle Courtney MD R3) Past Family Social History Past Medical History Type 2 diabetes, A1C 14 Hypertension poorly controlled [place] in 2011 3 stents in 2009 Diabetic sensory neuropathy Chronic pain, on muscle relaxers, baclofen, hydrocodone Seizure disorder CVA X3 Hyperlipidemia GERD Gastroparesis Depression/anxiety Sickle cell trait Past Surgical History Total hysterectomy - 1999 cholecystectomy Left arm and tumor removal Neck fusion Total left knee arthroplasty Left axillary tumor removal Reported Medications Reported Meds & Active Scripts Active Paroxetine (Paroxetine HCl) 30 Mg Tab 30 Mg PO DAILY Abilify (Aripiprazole) 15 Mg Tab 15 Mg PO DAILY Chantix Continuing Month Juan (Varenicline) 1 Mg Juan 1 Mg PO BIDPC Omeprazole 40 Mg Cap 40 Mg PO DAILY Vistaril (Hydroxyzine Pamoate) 50 Mg Cap 1-2 Cap PO HS Lovastatin 20 Mg Tab 20 Mg PO HS Levemir Inj (Insulin Detemir) 1,000 unit/ 10 ML Vial 60 Units SQ BID Do not mix with any other Insulin. Bd Lancet Ultrafine 33G (Lancets) 1 Mis Mis Units ACHS Use to obtain blood for sugar checks Blood Glucose Test Strips Strips Strip 1 Ea .ROUTE DIRECTED Check blood sugar 4 times a day (before meals and at bedtime) Novolog Inj (Insulin Aspart) 1,000 Unit/10 Ml Vial 0-25 Units SQ ACHS Max dose at bedtime:( )units; sugars less than 70,(0) units; sugars 150-199,(5) units; sugars 200-249,(10) units; sugars 250-299,(15) units; sugars 300-349,(20)units; sugars greater than 349,(25)units Lidocaine Topical (Lidocaine HCl) 2 % Jel 1 Applic TOPICAL QID PRN Metoprolol Tartrate 100 Mg Tab 100 Mg PO BID Albuterol Neb (Albuterol Sulfate) 2.5 Mg/3 Ml Neb 2.5 Mg NEB Q4HR NEB PRN Advair Diskus Inh (Fluticasone-Salmeterol Inh) 250-50 Mcg/Blist Aer 1 Puff INH BID Rinse mouth after use. Triamcinolone Topical (Triamcinolone Acetonide) 0.1% Cream 1 Applic TOPICAL BID Nicotine Patch (Nicotine) 21 Mg/24 Hr Patch 21 Mg T-DERMAL DAILY Proair Hfa 8.5 GM Inh (Albuterol Sulfate) 90 Mcg/Act Aer 2 Puff INH Q4-6H PRN 108 mcg/actuation Ondansetron (Ondansetron HCl) 8 Mg Tab 8 Mg PO TID PRN Losartan (Losartan Potassium) 50 Mg Tab 50 Mg PO DAILY Fluticasone Nasal [place] 50 Mcg/Act Naspr 50 Mcg EACH NARE DAILY 50 mcg/spray Atrovent HFA 12.9 GM Inh (Ipratropium [place]) 17 Mcg/Act Aer 2 Puff INH QID Hydrocodone-Acetaminophen 10-325 mg Tab 1 Tab PO Q4-6HR PRN Buspirone (Buspirone HCl) 5 Mg Tab 5 Mg PO DAILY Ibuprofen 800 Mg Tab 800 Mg PO TID Nebulizer 1 Mis Mis 1 Ea .ROUTE DIRECTED Use with albuterol every 4 hours as needed for shortness of breath, wheezing. Aspirin 81 (Aspirin) 81 Mg Tabdr 81 Mg PO EVERY OTHER DAY Lyrica (Pregabalin) 100 Mg Cap 100 Mg PO TID Reported Nortriptyline (Nortriptyline HCl) 50 Mg Cap 50 Mg PO HS Norvasc (Amlodipine Besylate) 10 Mg Tab 10 Mg PO DAILY Singulair (Montelukast Sodium) 10 Mg Tab 10 Mg PO HS Baclofen 20 Mg Tab 20 Mg PO QID Ambien (Zolpidem Tartrate) 5 Mg Tab 5 Mg PO HS PRN Atrovent HFA 12.9 GM Inh (Ipratropium [place]) 17 Mcg/Act Aer 2 Puff INH Q6HR PRN Xarelto (Rivaroxaban) 20 Mg Tab 20 Mg PO DAILY Bd Insulin Syringe Ultraf 31G X 5/16" 1 ml (Insulin Syringe/Needle U-100) 1 Mis Mis Ea Ranitidine (Ranitidine HCl) 150 Mg Tab 150 Mg PO BID Tizanidine (Tizanidine HCl) 4 Mg Tab 4 Mg PO QID (Kyle Courtney MD R3) Allergies: Coded Allergies: ciprofloxacin (Unverified Allergy, Severe, SWELLING SOB, 07/05/17) erythromycin base (Unverified Allergy, Severe, SWELLING SOB, 07/05/17) tramadol (Unverified Allergy, Severe, rash, 07/05/17) vancomycin (Unverified Allergy, Severe, SWELLING AND SOB, 07/05/17) Active Ordered Medications Inpatient Medications Acetaminophen (Tylenol) 650 mg Q6H PRN PO PAIN 1-10 AND/OR FEVER >101F Last administered on 07/05/17 21:16; Start 07/05/17 at 02:15 Albuterol/ Ipratropium (Duoneb Neb) 1 ampule Q2HR NEB PRN INH WHEEZING; Start 07/05/17 at 02:15 Amlodipine Besylate (Norvasc) 10 mg DAILY PO Last administered on 07/07/17 08: 11; Start 07/05/17 at 09:00 Aripiprazole (Abilify) 15 mg DAILY PO Last administered on 07/07/17 08:52; Start 07/05/17 at 09:00 Aspirin (Ecotrin Ec) 81 mg EVERY OTHER DAY PO ; Start 07/05/17 at 09:00 Baclofen (Lioresal) 20 mg QID PO Last administered on 07/05/17 13:00; Start 07/05/17 at 09:00; Status Future Hold Bisacodyl (Dulcolax Supp) 10 mg DAILY PRN RECTAL SEVERE CONSITIPATION; Start at 02:15 Budesonide/ Formoterol Fumarate (Symbicort 160-4.5 Inh) 1 puff BID INH Last administered on 07/07/17 08:11; Start 07/05/17 at 09:00 Buspirone HCl (Buspar) 5 mg DAILY PO Last administered on 07/07/17 08:10; Start 07/05/17 at 09:00 Chlorhexidine Gluconate (Chlorhexidine 2% Cloth) 3 pack UNSCH PRN TOP HYGIENIC CARE; Start 07/05/17 at 02:15 Chlorhexidine Gluconate (Peridex 0.12% Liq) 15 ml BID@08,20 MT Last administered on 07/07/17 08:14; Start 07/05/17 at 08:00 Dexmedetomidine HCl 1000 mcg/ Sodium Chloride 250 ml @ 4.32 mls/hr TITRATE PRN IV SEDATION Last administered on 07/07/17 04:13; Start 07/06/17 at 19:00 Dexmedetomidine HCl 200 mcg/ Sodium Chloride 52 ml @ 4.49 mls/hr TITRATE PRN IV SEDATION Last administered on 07/06/17 18:10; Start 07/06/17 at 16:30; Stop at 18:47; Status DC Dextrose (D50w (Vial) Inj) 50 ml UNSCH PRN IV HYPOGLYCEMIA-SEE COMMENTS; Start 07/05/17 at 03:45 Etomidate (Amidate Inj) 20 mg ONCE ONCE IV PUSH Last administered on 07/05/17 01:13; Start 07/05/17 at 01:00; Stop 07/05/17 at 01:01; Status DC Famotidine (Pepcid Inj) 10 mg Q12HR IV PUSH Last administered on 07/07/17 08: 12; Start 07/05/17 at 09:00 Glucagon (Glucagon Inj) 1 mg UNSCH PRN OTHER HYPOGLYCEMIA-SEE COMMENTS; Start 07/05/17 at 03:45 Hydralazine HCl (Apresoline Inj) 20 mg Q4H PRN IV PUSH SBP>160, DBP>90 Last administered on 07/07/17 08:51; Start 07/05/17 at 04:45 Insulin Aspart (NovoLOG SUPPLEMENTAL SCALE) 1 ACHS SLIDING SCALE SQ Last administered on 07/07/17 11:00; Start 07/05/17 at 16:00 Insulin Detemir (Levemir Inj) 5 units Q12HR SQ Last administered on 07/07/17 08:15; Start 07/05/17 at 14:15 Insulin Human Regular (NovoLIN R SUPPLEMENTAL SCALE) 1 ACHS SLIDING SCALE SQ Last administered on 07/05/17 09:22; Start 07/05/17 at 07:00; Stop 07/05/17 at 14: 08; Status DC IV Flush (NS Flush) 2 ml UNSCH PRN IV FLUSH FLUSH AFTER USING IV ACCESS; Start 07/05/17 at 01:00; Stop 07/05/17 at 02:12; Status DC Labetalol HCl (Trandate Inj) 10 mg Q4H PRN IV PUSH SBP>160, DBP>90 Last administered on 07/07/17 08:13; Start 07/05/17 at 04:45 Lactulose (Lactulose Liq) 30 ml DAILY PRN PO SEVERE CONSITIPATION; Start at 02:15 Losartan Potassium (Cozaar) 50 mg DAILY PO Last administered on 07/07/17 08:10 ; Start 07/05/17 at 09:00 Magnesium Hydroxide (Milk Of Magnesia Liq) 30 ml Q12H PRN PO MILD - MODERATE CONSTIPATION; Start 07/05/17 at 02:15 Magnesium Oxide (Mag-Ox) 800 mg UNSCH PRN PO For Magnesium 1.2 - 1.6 mg/dL; Start 07/07/17 at 11:00 Magnesium Sulfate 2 gm/Sodium Chloride 100 ml @ 50 mls/hr UNSCH PRN IV For Magnesium 1.2 - 1.6 mg/dL; Start 07/07/17 at 11:00 Magnesium Sulfate 4 gm/Sodium Chloride 100 ml @ 50 mls/hr UNSCH PRN IV For Magnesium 0.9 - 1.1 mg/dL; Start 07/07/17 at 11:00 Metoprolol Tartrate (Lopressor) 100 mg BID PO Last administered on 07/07/17 08 :11; Start 07/05/17 at 09:00 Midazolam HCl (Versed Inj) 2 mg Q1H PRN IV PUSH SEDATION Last administered on 03:58; Start 07/05/17 at 02:15 Miscellaneous Information 1 Q361D XX ; Start 07/05/17 at 02:15 Montelukast Sodium (Singulair) 10 mg HS PO Last administered on 07/06/17 20:53 ; Start 07/05/17 at 21:00 Nortriptyline HCl (Pamelor) 50 mg HS PO Last administered on 07/07/17 08:10; Start 07/05/17 at 21:00 Ondansetron HCl (Zofran Inj) 4 mg Q6H PRN IV PUSH NAUSEA OR VOMITING; Start 07/05/17 at 02:15 Paroxetine HCl (Paxil) 30 mg DAILY PO Last administered on 07/07/17 08:10; Start 07/05/17 at 09:00 Potassium Phosphate (K-Phos) 2,000 mg UNSCH PRN PO/TUBE SEE LABEL COMMENTS; Start 07/07/17 at 11:00 Potassium Phosphate 30 mmol/ Sodium Chloride 260 ml @ 42 mls/hr UNSCH PRN IV SEE LABEL COMMENTS; Start 07/07/17 at 11:00 Potassium Bicarb/ Potassium Chloride (K-Lyte Cl Eff) 50 meq UNSCH PRN PO For Potassium 3.3 - 3.5 mEq/L; Start 07/07/17 at 11:00 Potassium Chloride 100 ml @ 50 mls/hr Q2H PRN IV For Potassium 3.3 - 3.5 mEq/L ; Start 07/07/17 at 11:00 Pravastatin Sodium (Pravachol) 20 mg HS PO Last administered on 07/06/17 20:53 ; Start 07/05/17 at 21:00 Pregabalin (Lyrica) 75 mg DAILY PO Last administered on 07/07/17 08:11; Start 07/05/17 at 09:00 Propofol 100 ml @ 2.7 mls/hr TITRATE PRN IV SEDATION Last administered on 07/07 08:53; Start 07/05/17 at 02:15 Rivaroxaban (Xarelto) 20 mg DAILY PO ; Start 07/05/17 at 09:00; Status Future hold Senna/Docusate Sodium (Ashley-Colace) 1 tab BID PO Last administered on 08:11; Start 07/05/17 at 09:00 Sennosides (Senokot) 17.2 mg Q12H PRN PO MODERATE - SEVERE CONSTIPATION; Start 07/05/17 at 02:15 Sodium Chloride 1,000 ml @ 999 mls/hr BOLUS ONCE IV Last administered on 21:29; Start 07/05/17 at 20:15; Stop 07/05/17 at 21:15; Status DC Sodium Chloride (NS Flush) 2 ml BID .XX Last administered on 07/07/17 08:11; Start 07/05/17 at 09:00 Sodium Phosphate 30 mmol/Sodium Chloride 250 ml @ 42 mls/hr UNSCH PRN IV For Phosphorus < 2.5 mg/dL; Start 07/07/17 at 11:00 Succinylcholine Chloride (Quelicin Inj) 100 mg ONCE ONCE IV PUSH Last administered on 07/05/17 01:12; Start 07/05/17 at 01:00; Stop 07/05/17 at 01:01; Status DC Tizanidine HCl (Zanaflex) 4 mg QID PO Last administered on 07/07/17 08:10; Start 07/05/17 at 09:00 Social History Smokes pack per day for 40 years, on chantix Denies alcohol abuse Denies drug abuse, no IV drug use On disability Lives with , Sina Has 7 grown children (Kyle Courtney MD R3) Physical Exam Vital Signs Vital Signs Date Time Temp Pulse Resp B/P (MAP) Pulse Ox O2 Delivery O2 Flow Rate FiO2 07/07/17 12:00 99 07/07/17 12:00 97.5 99 25 187/104 (131) 97 07/07/17 11:07 Nasal Cannula 40 07/07/17 11:06 100 Nasal Cannula 4.00 07/07/17 11:06 100 Nasal Cannula 4 07/07/17 10:00 80 07/07/17 08:00 40 07/07/17 08:00 80 07/07/17 08:00 97.8 80 18 203/98 (133) 100 07/07/17 07:54 99 40 07/07/17 07:00 71 0 198/85 (122) 99 07/07/17 06:45 199/99 (132) 07/07/17 06:45 76 18 199/99 (132) 100 07/07/17 06:30 76 19 203/98 (133) 100 07/07/17 06:15 77 19 204/100 (134) 100 07/07/17 06:00 69 07/07/17 06:00 69 0 197/98 (131) 100 07/07/17 05:45 70 5 194/93 (126) 100 07/07/17 05:30 71 18 192/92 (125) 100 07/07/17 05:15 73 15 192/93 (126) 100 07/07/17 05:00 77 18 192/93 (126) 100 07/07/17 04:45 84 18 188/93 (124) 100 07/07/17 04:30 83 18 187/91 (123) 100 07/07/17 04:15 82 8 191/93 (125) 100 07/07/17 04:04 98 40 07/07/17 04:00 97.7 76 18 166/73 (104) 100 07/07/17 04:00 76 18 191/90 (123) 100 07/07/17 04:00 76 07/07/17 03:45 77 18 203/99 (133) 100 07/07/17 03:40 191/90 (123) 07/07/17 03:30 72 18 203/97 (132) 100 07/07/17 03:30 72 18 203/97 (132) 100 07/07/17 03:15 75 18 202/99 (133) 100 07/07/17 03:00 76 18 192/91 (124) 100 07/07/17 02:45 78 18 194/93 (126) 100 07/07/17 02:30 79 18 205/92 (129) 100 07/07/17 02:15 75 18 212/98 (136) 100 07/07/17 02:15 212/98 (136) 07/07/17 02:00 77 07/07/17 02:00 77 18 188/92 (124) 100 07/07/17 01:45 79 18 183/91 (121) 07/07/17 01:30 80 18 184/90 (121) 99 07/07/17 01:15 83 18 180/88 (118) 99 07/07/17 01:00 83 18 177/86 (116) 99 07/07/17 00:56 99 40 07/07/17 00:45 86 18 174/85 (114) 100 07/07/17 00:30 90 18 171/84 (113) 99 07/07/17 00:15 83 18 160/77 (104) 99 07/07/17 00:00 40 07/07/17 00:00 83 07/07/17 00:00 98.5 83 18 166/73 (104) 99 07/07/17 00:00 83 19 166/73 (104) 99 07/06/17 23:45 80 18 178/82 (114) 100 07/06/17 23:30 80 18 183/91 (121) 100 07/06/17 23:30 183/91 (121) 07/06/17 23:15 80 18 183/91 (121) 100 07/06/17 23:15 80 18 183/91 (121) 100 07/06/17 23:00 81 18 184/90 (121) 100 07/06/17 23:00 81 18 184/90 (121) 100 07/06/17 22:45 82 18 187/91 (123) 100 07/06/17 22:30 83 18 189/88 (121) 100 07/06/17 22:15 90 20 192/92 (125) 100 07/06/17 22:00 96 21 198/95 (129) 100 07/06/17 22:00 96 07/06/17 21:45 100 18 197/96 (129) 100 07/06/17 21:45 198/95 (129) 07/06/17 21:30 101 21 189/91 (123) 100 07/06/17 21:22 100 40 07/06/17 21:15 90 14 179/85 (116) 100 07/06/17 21:00 93 8 182/87 (118) 100 07/06/17 20:45 96 12 179/86 (117) 99 07/06/17 20:30 102 21 173/81 (111) 100 07/06/17 20:17 111 22 148/96 (113) 100 07/06/17 20:00 40 07/06/17 20:00 97 07/06/17 20:00 97 22 165/77 (106) 98 07/06/17 20:00 99.9 97 20 165/77 (106) 98 07/06/17 19:45 99 22 162/76 (104) 98 07/06/17 19:30 100 23 163/68 (99) 98 07/06/17 19:15 102 25 175/81 (112) 98 07/06/17 19:05 103 26 195/93 (127) 99 07/06/17 19:00 107 22 203/95 (131) 100 07/06/17 18:00 89 07/06/17 16:00 100.7 95 18 175/83 (113) 99 07/06/17 16:00 95 07/06/17 15:29 99 40 07/06/17 14:00 96 Physical Exam GENERAL: Lying in bed, no acute distress, mildly confused but awake and alert, currently in restraints SKIN: No rashes or lesions, does have one small ulcer on roof of mouth, no sacral ulcers noted HEAD: Atraumatic. Normocephalic. EYES: Pupils equal round and reactive. Extraocular motions intact. No scleral icterus. No injection or drainage. ENT: Nose without bleeding, purulent drainage or septal hematoma. Throat without erythema, tonsillar hypertrophy or exudate. Uvula midline. Airway patent. NECK: Trachea midline. No JVD or lymphadenopathy. Supple, nontender, no meningeal signs. CARDIOVASCULAR: Regular rate and rhythm without murmurs, gallops, or rubs. Normal peripheral pulses. RESPIRATORY: Course breath sounds, worse in bases, no wheezing, coughed a couple times, sounded productive GASTROINTESTINAL: Abdomen soft, non-tender, nondistended. No hepato-splenomegaly , or palpable masses. No guarding. MUSCULOSKELETAL: Extremities without clubbing, cyanosis, or edema. No joint tenderness, effusion, or edema noted. No calf tenderness. NEUROLOGICAL: Awake and alert. Cranial nerves II through XII intact. Motor and sensory grossly within normal limits. Five out of 5 muscle strength in all muscle groups. Normal speech. Orientation questions: knows name, year, and place. fuzzy on month, and does not know what happened before hospital admission. Laboratory Laboratory Tests Test 07/07/17 04:37 07/07/17 06:35 White Blood Count 15.4 Red Blood Count 4.07 Hemoglobin 11.0 Hematocrit 34.1 Mean Corpuscular Volume 83.7 Mean Corpuscular Hemoglobin 26.9 Mean Corpuscular Hemoglobin Concent 32.2 Red Cell Distribution Width 14.9 Platelet Count 248 Mean Platelet Volume 8.5 Blood Urea Nitrogen 16 Creatinine 0.61 Random Glucose 194 Total Protein 6.5 Albumin 2.3 Calcium Level 8.5 Phosphorus Level 2.3 Magnesium Level 1.7 Alkaline Phosphatase 434 Aspartate Amino Transf (AST/SGOT) 14 Alanine Aminotransferase (ALT/SGPT) 12 Total Bilirubin 0.4 Sodium Level 143 Potassium Level 3.3 Chloride Level 114 Carbon Dioxide Level 20.6 Anion Gap 8 Estimat Glomerular Filtration Rate 124 Blood Gas Puncture Site RT RADIAL Blood Gas Patient Temperature 98.6 Blood Gas HCO3 17 Blood Gas Base Excess -6.4 Blood Gas Oxygen Saturation 96 Arterial Blood pH 7.41 Arterial Blood Partial Pressure CO2 28 Arterial Blood Partial Pressure O2 132 Arterial Blood Oxygen Content 18.7 Arterial Blood Carboxyhemoglobin 1.1 Arterial Blood Methemoglobin 1.2 Blood Gas Hemoglobin 13.7 Oxygen Delivery Device VENT Blood Gas Ventilator Setting SEE COMMENTS Blood Gas Inspired Oxygen 40 Date/Time Source Procedure Growth Status 07/05/17 01:15 Blood Peripheral Aerobic Blood Culture - Preliminary NO GROWTH IN 2 DAYS Resulted 07/05/17 01:15 Blood Peripheral Anaerobic Blood Culture - Preliminary NO GROWTH IN 2 DAYS Resulted (Kyle Courtney MD R3) Result Diagram: 07/07/1743607/07/17436 Imaging Last 72 hours Impressions Chest X-Ray 07/07/17 06 Signed Impressions: Service Date/Time: Friday, July 07, 2017 03:22 - CONCLUSION: Left greater than right basilar consolidation developing. Mukund Stroud MD Head CT 07/05/1753 Signed Impressions: Service Date/Time: Wednesday, July 05, 2017 02:26 - CONCLUSION: 1. No acute intracranial abnormality. Benito Chu MD Chest X-Ray 07/05/1753 Signed Impressions: Service Date/Time: Wednesday, July 05, 2017 01:23 - CONCLUSION: 1. ETT in good position. NGT beyond the GE junction with tip omitted from the image. 2. No acute abnormality or significant change. Benito Chu MD (Kyle Courtney MD R3) Septic Shock Reassessment Heart: Regular rate and rhythm Lungs: Course Skin: Warm Capillary Refill: <2 seconds (Kyle Courtney MD R3) Caprini VTE Risk Assessment Caprini VTE Risk Assessment: Mod/High Risk (score >= 2) Caprini Risk Assessment Model Point Value = 1 Point Value = 2 Point Value = 3 Point Value = 5 Age 41-60 Minor surgery BMI > 25 kg/m2 Swollen legs Varicose veins or History of unexplained or recurrent spontaneous Oral contraceptives or hormone replacement Sepsis (< 1 month) Serious lung disease, including pneumonia (< 1 month) Abnormal pulmonary function Acute myocardial infarction Congestive heart failure (< 1 month) History of inflammatory bowel disease Medical patient at bed rest Age 61-74 Arthroscopic surgery Major open surgery (> 45 min) Laparoscopic surgery (> 45 min) Malignancy Confined to bed (> 72 hours) Immobilizing plaster cast Central venous access Age >= 75 History of VTE Family history of VTE Factor V Leiden Prothrombin [id number] Lupus anticoagulant Anticardiolipin antibodies Elevated serum homocysteine Heparin-induced thrombocytopenia Other congenital or acquired thrombophilia Stroke (< 1 month) Elective arthroplasty Hip, pelvis, or leg fracture Acute spinal cord injury (< 1 month) Prophylaxis Regimen Total Risk Factor Score Risk Level Prophylaxis Regimen 0-1 Low Early ambulation 2 Moderate Order ONE of the following: *Sequential Compression Device (SCD) *Heparin 5000 units SQ BID 3-4 Higher Order ONE of the following medications: *Heparin 5000 units SQ TID *Enoxaparin/Lovenox 40 mg SQ daily (WT < 150 kg, CrCl > 30 mL/min) *Enoxaparin/Lovenox 30 mg SQ daily (WT < 150 kg, CrCl > 10-29 mL/min) *Enoxaparin/Lovenox 30 mg SQ BID (WT < 150 kg, CrCl > 30 mL/min) AND/OR *Sequential Compression Device (SCD) 5 or more Highest Order ONE of the following medications: *Heparin 5000 units SQ TID (Preferred with Epidurals) *Enoxaparin/Lovenox 40 mg SQ daily (WT < 150 kg, CrCl > 30 mL/min) *Enoxaparin/Lovenox 30 mg SQ daily (WT < 150 kg, CrCl > 10-29 mL/min) *Enoxaparin/Lovenox 30 mg SQ BID (WT < 150 kg, CrCl > 30 mL/min) AND *Sequential Compression Device (SCD) (Kyle Courtney MD R3) Assessment and Plan Assessment and Plan 51 year old female with complicated past medical history was found unresponsive and in respiratory failure, intubated in the ICU, extubated on 07/07/17 at 11 AM and currently stable, awake, alert, but mildly confused. Code Status FULL CODE Discussed Condition With Discussed with Dr. Garcia Discussed with Dr. Jason (Kyle Courtney MD R3) Attending Attestation The patient has been seen and examined. The chart and all resident notes have been reviewed. I agree that inpatient care is appropriate and that a two midnight stay is expected for the reasons documented in the resident history and physical. I have discussed this with the resident and certify the resident s order for inpatient admission. (Lindsey Garcia MD) Problem List: (1) Respiratory failure ICD Codes: J96.90 - Respiratory failure, unspecified, unspecified whether with hypoxia or hypercapnia Status: Resolved Plan: Presented with low GCS of 3, improved to 10, required intubation to protect airway. Has a history of COPD. Breath sounds course in the bases. Chest x-ray showing left greater than right basilar consolidation developing. She has some productive coughing. Currently extubated since 11 AM on 07/07/17. DDx includes pulmonary embolism, acute CVA, COPD exacerbation, aspiration pneumonia. Procalcitonin elevated. - DuoNebs q6hrs scheduled - Symbicort 160-4.5 inhaled 1 buff bid - Will start prednisone 40 mg daily for possible COPD exacerbation - Repeat chest x-ray tomorrow, low threshold for antibiotics if concerned for pneumonia - Sputum culture, blood cultures - Legionella/strep pneumo urinary antigens - Linezolid, Zosyn, and Doxycycline (see allergy list) to cover for possible aspiration pneumonia versus hospital acquired pneumonia (was recently in hospital on ventilator). Started 07/07/17. (2) Altered mental status ICD Codes: R41.82 - Altered mental status, unspecified Status: Resolved Plan: Found unresponsive with GCS of 3, improved somewhat with administration of Narcan. Concern was for Baclofen and/or hydrocodone overdose, bag of medications found next to her. Denies suicidal intention or history of drug abuse. CT head negative for acute process. Ammonia normal. Head CT negative for acute process. Glucose 343 on admission, no increased anion gap. Lactic acid initially elevated up to 3.5, now normal. TSH normal. Toxicology screen positive for opiates only. - Portable EEG given history of seizure disorder. - Blood/sputum cultures pending (3) DM (diabetes mellitus) ICD Codes: E11.9 - Type 2 diabetes mellitus without complications Status: Chronic Plan: Blood glucoses currently upper 100's to lower 200's. Currently on high dose sliding scale NovoLog, and Levemir 5 units bid. A1C 14 in March. - Monitor blood glucoses, target 140-180 - Repeat A1C (4) Hypertension ICD Codes: I10 - Essential (primary) hypertension Status: Chronic Plan: BP's significantly elevated, systolic 180's to low 200's, diastolic 80's to 100's. - Amlodipine 10 mg PO daily - Metoprolol 100 mg PO bid - Add lisinopril 10 mg daily - Labetolol 10 mg IV q4hrs >160/90 - Hydralazine 20 mg IV q4hrs PRN for >160/90. (5) COPD (chronic obstructive pulmonary disease) ICD Codes: J44.9 - Chronic obstructive pulmonary disease, unspecified Status: Chronic Plan: - Continue Symbicort from home - DuoNebs q6hrs scheduled - Started prednisone 40 mg PO, 07/07 - (6) No contraindication to deep vein thrombosis (DVT) prophylaxis ICD Codes: Z78.9 - Other specified health status Status: Acute Plan: - Continue Xarelto 20 mg daily - Bilateral SCD's (7) Nutrition, metabolism, and development symptoms ICD Codes: R63.8 - Other symptoms and signs concerning food and fluid intake Status: Acute Plan: Normal saline at 124 mls/hr until good oral intake On ICU electrolyte protocol, monitor electrolytes and replace as needed Speech therapy ordered, if passed can start diet Shah catheter in place due to critical illness, will pull when feasible (Kyle Courtney MD R3) Physician Certification 2 Midnight Certification Type: Admission for Inpatient Services Order for Inpatient Services The services are ordered in accordance with Medicare regulations or non- Medicare payer requirements, as applicable. In the case of services not specified as inpatient-only, they are appropriately provided as inpatient services in accordance with the 2-midnight benchmark. Estimated LOS (days): 3 days is the estimated time the patient will need to remain in the hospital, assuming treatment plan goals are met and no additional complications. Post-Hospital Plan: Not yet determined (Kyle Courtney MD R3) Problem Qualifiers (1) Respiratory failure: Qualified Codes: J96.00 - Acute respiratory failure, unspecified whether with hypoxia or hypercapnia (2) DM (diabetes mellitus): Kyle Courtney MD R3 Jul 07, 2017 13:08 Lindsey Garcia MD Jul 09, 2017 09:51
[2017-07-07] MEDS ORDERED: LISINOPRIL 10 MG TAB PO SCH (14:00)
[2017-07-07] MEDS: MIDAZOLAM HCL 2 MG/2 ML VIAL IV PUSH PRN (15:22)
[2017-07-07] MEDS: predniSONE 20 MG TAB PO SCH (15:22)
[2017-07-07] MEDS: LINEZOLID 600 MG PREMIX 300 ML IV SCH (15:23)
[2017-07-07 16:49] LABS: BLOOD GAS BASE EXCESS -4.8 mmol/L (-2-2); BLOOD GAS CARBOXYHEMOGLOBIN 1.4 % (0-4); BLOOD GAS HCO3 18 mmol/L (22-26); BLOOD GAS METHEMOGLOBIN 1.1 % (0-2); BLOOD GAS O2 HGB SATURATION 93 % (90-100); BLOOD GAS OXYGEN CONTENT 15.3 Vol % (12.0-20.0); BLOOD GAS PCO2 25 mmHg (38-42); BLOOD GAS PO2 79 mmHg (61-120); BLOOD GAS TOTAL HGB 11.6 G/DL (12.0-16.0); TEMP CORR TO 98.6
[2017-07-07 16:50] LABS: CRITICAL VALUE NO; LITER FLOW 3 L/M; OXYGEN DEVICE NASAL CANNULA
[2017-07-07 16:51] LABS: DRAW SITE LT RADIAL; NUMBER OF ARTERIAL PUNCTURES 1; STAT YES; ULNAR PULSE PRESENT
[2017-07-07] MEDS ORDERED: methylPREDNISolone SOD SUCC 125 MG/2 ML VIAL IV PUSH ONE (17:00)
--- NOTE | 2017-07-07 17:03 | HHI.FPPN ---
Addendum to progress note ADDENDUM Reason for addendum: Additonal documentation Additional information Called by nurse regarding RR as high as the lower 60's and tachycardia into the lower 100's. Patient feels shortness of breath. She is in mild respiratory distress. She reports no current pain. Reports no chest pain. Also report of subclinical seizures on EEG reported by the radio frequency technician. Vitals: T: 97.5 RR 44 205/116 96% 3L nasal cannula PE: General: Sitting up in bed, mild respiratory distress Lungs: Course breath sound diffusely, mildly increase expiratory phase, mild respiratory distress, tachypneic into the 40's CV: Tachycardic into the lower 100's, EKG showing sinus tachycardia, possibly some mild ST depression in the lateral leads Abdomen: Soft, nontender Ext: No calf swelling or tenderness ABG: Mild respiratory alkalosis possibly as compensation for metabolic acidosis Assessment: 51 year old female extubated earlier today with tachypnea, tachycardia, subclinical seizures - Consult neurology for subclinical seizures, Dr. Clark aware, no recommendations for seizure medication currently - Notify Dr. Hou, cleaning staff supervisor, about respiratory status - Stat EKG showing possible ST segment depression in lateral leads, possible ischemia - Stat troponins for ST depression - Metabolic acidosis: check stat lactic acid - Chest x-ray done earlier today showing development of possible pneumonia, on linezolid, doxycycline, Zosyn (see allergy list) - Stat CTA, she has been off Xarelto since admission and currently only on bilateral SCD's - NPO for tachypnea to avoid aspiration - Start heparin 5000 units tid for DVT prophylaxis - Nursing to contact Dr. Hou regarding impending respiratory failure Seen and discussed with Dr. Anaya Discussed with Dr. Garcia (Kyle Courtney MD R3) Kyle Courtney MD R3 Jul 07, 2017 17:03 Lindsey Garcia MD Jul 09, 2017 09:52
[2017-07-07] MEDS: DOXYCYCLINE INJ 100 MG in SODIUM CHLORIDE 0.9% INJ 100 ML IV SCH (17:05)
[2017-07-07] MEDS: PIPERACIL-TAZO 3.375 GM PREMIX 50 ML IV SCH ×2 (17:05→22:21)
[2017-07-07] MEDS: HEPARIN SODIUM - SQ 10,000 UNITS/ML VIAL SQ SCH (18:45)
[2017-07-07] MEDS ORDERED: FOSPHENYTOIN INJ 1,000 MGPE in SODIUM CHLORIDE 0.9% INJ 50 ML IV ONE (19:30)
--- NOTE | 2017-07-07 19:58 | MG ---
cc: REYNOLD BURNS MD Lab No: [id number] Date: 07/07/2017 Age: 51 Sex: F Race: DATE OF 1965 HISTORY 51-year-old, history of previous stroke, sickle-cell depression, anxiety, history of mental status changes. DESCRIPTION Periodic frontal sharp waves occurring, clusters lasting 10-20 seconds. Some triphasic morphology as well occurring in pseudo periodic fashion 20-75 microvolts. Background EEG demonstrates 4-6 Hz activity. pattern noted. Single-lead EKG showing sinus rhythm. INTERPRETATION Pseudo periodic frontal discharges occurring. Background mild to moderate encephalopathy as described above. Clinical correlation. Reynold Burns MD MG/DT /7:17 PM /7:32 PM MTDD
--- NOTE | 2017-07-07 19:59 | PD.CONS ---
History of Present Illness Service Neurology Consult Requested By medical Reason for Consult confusion Primary Care Physician Juan Ramon Jason MD History of Present Illness 51-year-old female admitted for mental status changes and intubated. GCS was 3. She received narcan and gcs improved to 10. apparently taking baclofen, opiods. uds +opiates hx of previous strokes and continued tob use. normal nh3 and tsh levels. has been confused and an eeg was ordered which was abnormal. neurology was consulted for further guidance. Review of Systems ROS as above and admit hp Past Family Social History Allergies: Coded Allergies: ciprofloxacin (Unverified Allergy, Severe, SWELLING SOB, 07/05/17) erythromycin base (Unverified Allergy, Severe, SWELLING SOB, 07/05/17) tramadol (Unverified Allergy, Severe, rash, 07/05/17) vancomycin (Unverified Allergy, Severe, SWELLING AND SOB, 07/05/17) *MDRO Multi-Drug Resistant Organism (Verified Adverse Reaction, Unknown, ) 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) MRSA PCR screen NEGATIVE 03/14/17 & 03/18/17 Cleared per Infection Control Past Medical History CAD with stents in 2011. Hypertension, Diabetes mellitus, COPD, GERD, CVA 3 with residual left-sided weakness, Tobacco use disorder Lung nodules Past Surgical History Cardiac catheterization 2011 with intervention Family History + coronary artery disease Social History Smokes pack per day for last 30 years No history of alcohol or illicit drug abuse Review of Systems All other ROS: ROS reviewed as documented in chart Past Family Social History Allergies: Coded Allergies: ciprofloxacin (Unverified Allergy, Severe, SWELLING SOB, 07/05/17) erythromycin base (Unverified Allergy, Severe, SWELLING SOB, 07/05/17) tramadol (Unverified Allergy, Severe, rash, 07/05/17) vancomycin (Unverified Allergy, Severe, SWELLING AND SOB, 07/05/17) Active Ordered Medications Current Medications Medications (Trade) Dose Ordered Sig/Katharine Route Start Time Stop Time Status Last Admin (Norvasc) 10 mg DAILY PO 07/05/17 09:00 07/07/17 08:11 (Abilify) 15 mg DAILY PO 07/05/17 09:00 07/07/17 08:52 (Ecotrin Ec) 81 mg EVERY OTHER DAY PO 07/05/17 09:00 (Lioresal) 20 mg QID PO 07/05/17 09:00 Future Hold 07/05/17 13:00 (Buspar) 5 mg DAILY PO 07/05/17 09:00 07/07/17 08:10 (Cozaar) 50 mg DAILY PO 07/05/17 09:00 07/07/17 08:10 (Pravachol) 20 mg HS PO 07/05/17 21:00 07/06/17 20:53 (Lopressor) 100 mg BID PO 07/05/17 09:00 07/07/17 08:11 (Singulair) 10 mg HS PO 07/05/17 21:00 07/06/17 20:53 (Pamelor) 50 mg HS PO 07/05/17 21:00 07/07/17 08:10 (Lyrica) 75 mg DAILY PO 07/05/17 09:00 07/07/17 08:11 (Xarelto) 20 mg DAILY PO 07/05/17 09:00 Future Hold (Zanaflex) 4 mg QID PO 07/05/17 09:00 07/07/17 08:10 (Symbicort 160-4.5 Inh) 1 puff BID INH 07/05/17 09:00 07/07/17 08:11 (Paxil) 30 mg DAILY PO 07/05/17 09:00 07/07/17 08:10 Sodium Chloride 1,000 ml @ 124 mls/hr Q8H4M IV 07/05/17 02:03 07/07/17 17:29 (NS Flush) 2 ml UNSCH PRN .XX 07/05/17 02:15 (NS Flush) 2 ml BID .XX 07/05/17 09:00 07/07/17 08:11 (Tylenol) 650 mg Q6H PRN PO 07/05/17 02:15 07/05/17 21:16 (Pepcid Inj) 10 mg Q12HR IV PUSH 07/05/17 09:00 07/07/17 08:12 (Versed Inj) 2 mg Q1H PRN IV PUSH 07/05/17 02:15 07/07/17 15:22 (Zofran Inj) 4 mg Q6H PRN IV PUSH 07/05/17 02:15 (Duoneb Neb) 1 ampule Q6HR NEB INH 07/05/17 04:00 07/07/17 15:14 (Duoneb Neb) 1 ampule Q2HR NEB PRN INH 07/05/17 02:15 Miscellaneous Information 1 Q361D XX 07/05/17 02:15 (Chlorhexidine 2% Cloth) 3 pack Taper DAILY@04 TOP 07/05/17 04:00 07/01/18 03:59 07/06/17 04:20 (Chlorhexidine 2% Cloth) 3 pack UNSCH PRN TOP 07/05/17 02:15 (Ashley-Colace) 1 tab BID PO 07/05/17 09:00 07/07/17 08:11 (Milk Of Magnesia Liq) 30 ml Q12H PRN PO 07/05/17 02:15 (Senokot) 17.2 mg Q12H PRN PO 07/05/17 02:15 (Dulcolax Supp) 10 mg DAILY PRN RECTAL 07/05/17 02:15 (Lactulose Liq) 30 ml DAILY PRN PO 07/05/17 02:15 Propofol 100 ml @ 2.7 mls/hr TITRATE PRN IV 07/05/17 02:15 07/07/17 08:53 (Peridex 0.12% Liq) 15 ml BID@08,20 MT 07/05/17 08:00 07/07/17 08:14 (D50w (Vial) Inj) 50 ml UNSCH PRN IV 07/05/17 03:45 (Glucagon Inj) 1 mg UNSCH PRN OTHER 07/05/17 03:45 (Apresoline Inj) 20 mg Q4H PRN IV PUSH 07/05/17 04:45 07/07/17 13:37 (Trandate Inj) 10 mg Q4H PRN IV PUSH 07/05/17 04:45 07/07/17 15:23 (NovoLOG SUPPLEMENTAL SCALE) 1 ACHS SLIDING SCALE SQ 07/05/17 16:00 07/07/17 11:00 (Levemir Inj) 5 units Q12HR SQ 07/05/17 14:15 07/07/17 08:15 Dexmedetomidine HCl 1000 mcg/ Sodium Chloride 250 ml @ 4.32 mls/hr TITRATE PRN IV 07/06/17 19:00 07/07/17 04:13 Potassium Chloride 100 ml @ 50 mls/hr Q2H PRN IV 07/07/17 11:00 Potassium Chloride 100 ml @ 50 mls/hr Q2H PRN IV 07/07/17 11:00 (K-Lyte Cl Eff) 50 meq UNSCH PRN PO 07/07/17 11:00 Potassium Chloride 100 ml @ 25 mls/hr UNSCH PRN IV 07/07/17 11:00 Potassium Chloride 100 ml @ 50 mls/hr Q2H PRN IV 07/07/17 11:00 Magnesium Sulfate 4 gm/Sodium Chloride 100 ml @ 50 mls/hr UNSCH PRN IV 07/07/17 11:00 (Mag-Ox) 800 mg UNSCH PRN PO 07/07/17 11:00 Magnesium Sulfate 2 gm/Sodium Chloride 100 ml @ 50 mls/hr UNSCH PRN IV 07/07/17 11:00 (K-Phos) 2,000 mg Q4H PRN PO 07/07/17 11:00 Sodium Phosphate 30 mmol/Sodium Chloride 250 ml @ 42 mls/hr UNSCH PRN IV 07/07/17 11:00 (K-Phos) 2,000 mg UNSCH PRN PO/TUBE 07/07/17 11:00 Potassium Phosphate 30 mmol/ Sodium Chloride 260 ml @ 42 mls/hr UNSCH PRN IV 07/07/17 11:00 07/07/17 15:00 (Deltasone) 40 mg DAILY PO 07/07/17 13:30 07/07/17 15:22 (Prinivil) 10 mg DAILY PO 07/07/17 14:00 07/07/17 15:22 Linezolid 300 ml @ 300 mls/hr Q12H IV 07/07/17 16:00 07/07/17 15:23 Piperacillin Sod/ Tazobactam Sod 50 ml @ 100 mls/hr Q6H IV 07/07/17 17:00 07/07/17 17:05 Doxycycline Hyclate 100 mg/ Sodium Chloride 100 ml @ 100 mls/hr Q12H IV 07/07/17 17:00 07/07/17 17:05 (Heparin Inj) 5,000 units Q8H SQ 07/07/17 18:00 07/07/17 18:45 (Cerebyx Inj) 200 mgpe Q12HR IV 07/07/17 21:00 UNV Fosphenytoin Sodium 1000 mgpe/ Sodium Chloride 70 ml @ 280 mls/hr ONCE ONCE IV 07/07/17 19:30 07/07/17 19:44 UNV Exam I&O / VS 07/07/17 07/07/17 07/08/17 15:00 23:00 07:00 Intake Total 100 ml 1410 ml Output Total 2600 ml Balance 100 ml -1190 ml IV Total 100 ml 1300 ml Tube Feeding 50 ml Other 60 ml Output Urine Total 2600 ml # Bowel Movements 2 Vital Signs Date Time Temp Pulse Resp B/P (MAP) Pulse Ox O2 Delivery O2 Flow Rate FiO2 07/07/17 18:00 117 07/07/17 16:00 99.9 117 43 208/88 (128) 96 07/07/17 16:00 117 07/07/17 14:00 105 07/07/17 12:00 99 07/07/17 12:00 97.5 99 25 187/104 (131) 97 07/07/17 11:07 Nasal Cannula 40 07/07/17 11:06 100 Nasal Cannula 4.00 07/07/17 11:06 100 Nasal Cannula 4 07/07/17 10:00 80 07/07/17 08:00 40 07/07/17 08:00 80 07/07/17 08:00 97.8 80 18 203/98 (133) 100 07/07/17 07:54 99 40 07/07/17 07:00 71 0 198/85 (122) 99 07/07/17 06:45 199/99 (132) 07/07/17 06:45 76 18 199/99 (132) 100 07/07/17 06:30 76 19 203/98 (133) 100 07/07/17 06:15 77 19 204/100 (134) 100 07/07/17 06:00 69 07/07/17 06:00 69 0 197/98 (131) 100 07/07/17 05:45 70 5 194/93 (126) 100 07/07/17 05:30 71 18 192/92 (125) 100 07/07/17 05:15 73 15 192/93 (126) 100 07/07/17 05:00 77 18 192/93 (126) 100 07/07/17 04:45 84 18 188/93 (124) 100 07/07/17 04:30 83 18 187/91 (123) 100 07/07/17 04:15 82 8 191/93 (125) 100 07/07/17 04:04 98 40 07/07/17 04:00 97.7 76 18 166/73 (104) 100 07/07/17 04:00 76 18 191/90 (123) 100 07/07/17 04:00 76 07/07/17 03:45 77 18 203/99 (133) 100 07/07/17 03:40 191/90 (123) 07/07/17 03:30 72 18 203/97 (132) 100 07/07/17 03:30 72 18 203/97 (132) 100 07/07/17 03:15 75 18 202/99 (133) 100 07/07/17 03:00 76 18 192/91 (124) 100 07/07/17 02:45 78 18 194/93 (126) 100 07/07/17 02:30 79 18 205/92 (129) 100 07/07/17 02:15 75 18 212/98 (136) 100 07/07/17 02:15 212/98 (136) 07/07/17 02:00 77 07/07/17 02:00 77 18 188/92 (124) 100 07/07/17 01:45 79 18 183/91 (121) 99 07/07/17 01:30 80 18 184/90 (121) 99 07/07/17 01:15 83 18 180/88 (118) 99 07/07/17 01:00 83 18 177/86 (116) 99 07/07/17 00:56 99 40 07/07/17 00:45 86 18 174/85 (114) 100 07/07/17 00:30 90 18 171/84 (113) 99 07/07/17 00:15 83 18 160/77 (104) 99 07/07/17 00:00 40 07/07/17 00:00 83 07/07/17 00:00 98.5 83 18 166/73 (104) 99 07/07/17 00:00 83 19 166/73 (104) 99 07/06/17 23:45 80 18 178/82 (114) 100 07/06/17 23:30 80 18 183/91 (121) 100 07/06/17 23:30 183/91 (121) 07/06/17 23:15 80 18 183/91 (121) 100 07/06/17 23:15 80 18 183/91 (121) 100 07/06/17 23:00 81 18 184/90 (121) 100 07/06/17 23:00 81 18 184/90 (121) 100 07/06/17 22:45 82 18 187/91 (123) 100 07/06/17 22:30 83 18 189/88 (121) 100 07/06/17 22:15 90 20 192/92 (125) 100 07/06/17 22:00 96 21 198/95 (129) 100 07/06/17 22:00 96 07/06/17 21:45 100 18 197/96 (129) 100 07/06/17 21:45 198/95 (129) 07/06/17 21:30 101 21 189/91 (123) 100 07/06/17 21:22 100 40 07/06/17 21:15 90 14 179/85 (116) 100 07/06/17 21:00 93 8 182/87 (118) 100 07/06/17 20:45 96 12 179/86 (117) 99 07/06/17 20:30 102 21 173/81 (111) 100 07/06/17 20:17 111 22 148/96 (113) 100 07/06/17 20:00 40 07/06/17 20:00 97 07/06/17 20:00 97 22 165/77 (106) 98 07/06/17 20:00 99.9 97 20 165/77 (106) 98 07/06/17 19:45 99 22 162/76 (104) 98 General: Alert and Oriented, No acute distress Eye: EOMI Respiratory: Non-labored respirations Neurologic: Alert, Oriented, CN II-XII intact Psychiatric: Cooperative, Appropriate mood & affect Exam Comments ox 3, follows, pres: Trump, previous Obama, eomi, face sym, ou 3-2mm, mild left ue increased tone, to to gravity Review/Management Diagnosis/Plan: (1) Acute encephalopathy ICD Codes: G93.40 - Encephalopathy, unspecified Status: Acute Plan: metabolic: resp failure/pneumonia. ? excessive med ingestion at home- pt denies iv cerebryx trial recs doing well ok for 5[facility] with tele (2) Respiratory failure ICD Codes: J96.90 - Respiratory failure, unspecified, unspecified whether with hypoxia or hypercapnia Status: Resolved (3) History of CVA (cerebrovascular accident) ICD Codes: Z86.73 - History of stroke Status: Chronic (4) CAD (coronary artery disease) ICD Codes: I25.10 - Atherosclerosis of coronary artery Status: Chronic Problem Qualifiers (1) Respiratory failure: Qualified Codes: J96.00 - Acute respiratory failure, unspecified whether with hypoxia or hypercapnia (2) CAD (coronary artery disease): Steve Clark MD Jul 07, 2017 19:59
[2017-07-07] MEDS: MONTELUKAST SODIUM 10 MG TAB PO SCH (21:00)
[2017-07-07] MEDS: PRAVASTATIN SOD 20 MG TAB PO SCH (21:00)
[2017-07-07] MEDS ORDERED: FOSPHENYTOIN SODIUM 100 MG PE/2 ML VIAL IV SCH (21:00)
[2017-07-08] VITALS (57 sets, daily range): BP systolic 161–204; BP diastolic 72–102; PULSE 85–113; RESP 18–40; TEMP 98.2–100.6; O2SAT 91–99
[2017-07-08] MEDS: LABETALOL HCL 100 MG/20 ML VIAL IV PUSH PRN ×4 (00:22→18:29)
[2017-07-08] MEDS: hydrALAZINE HCL 20 MG/ML VIAL IV PUSH PRN ×3 (02:43→17:24)
[2017-07-08] MEDS: HEPARIN SODIUM - SQ 10,000 UNITS/ML VIAL SQ SCH ×3 (02:43→17:24)
[2017-07-08] MEDS: POTASSIUM CHLOR 20 MEQ PREMIX 100 ML IV PRN ×4 (02:45→19:26)
[2017-07-08] MEDS: CHLORHEXIDINE GLUCONATE 2 % 1 PACK (2 CLOTHS) TOP SCH (03:18)
[2017-07-08] MEDS: SODIUM CHLOR 0.9% 1000 ML INJ 1,000 ML IV SCH ×3 (03:24→19:51)
[2017-07-08] MEDS: RESP: ALBUTEROL 2.5 MG/IPRATROPIUM 0.5 MG NEB (SCH) INH ×3 (03:52→21:14)
[2017-07-08] MEDS: LINEZOLID 600 MG PREMIX 300 ML IV SCH ×2 (03:57→14:56)
--- NOTE | 2017-07-08 04:00 | RADRPT ---
EXAM DATE/TIME: 07/08/2017 03:38 [place] COMPARISON: CHEST SINGLE AP, July 07, 2017, 3:22. INDICATIONS : Shortness of breath, possible pulmonary disease. MEDICAL HISTORY : Cerebrovascular disease. Myocardial infarction. Congestive heart failure. Diabetes SURGICAL HISTORY : None. ENCOUNTER: Subsequent ACUITY: 4 - 6 days PAIN SCORE: Non-responsive. LOCATION: Bilateral chest FINDINGS: A single view of the chest demonstrates bilateral mostly basilar airspace disease slightly improved f rom July 07. Previous endotracheal tube and nasogastric tube removed. No pneumothorax. CONCLUSION: 1. Slight improvement in basilar airspace disease since July 07. Interval extubation. Robert Elliott MD on July 08, 2017 at 3:58 Board Certified Radiologist. This report was verified electronically.
[2017-07-08 05:42] LABS: BLOOD GAS BASE EXCESS -8.4 mmol/L (-2-2); BLOOD GAS CARBOXYHEMOGLOBIN 0.9 % (0-4); BLOOD GAS HCO3 16 mmol/L (22-26); BLOOD GAS METHEMOGLOBIN 0.8 % (0-2); BLOOD GAS O2 HGB SATURATION 94 % (90-100); BLOOD GAS OXYGEN CONTENT 20.6 Vol % (12.0-20.0); BLOOD GAS PCO2 26 mmHg (38-42); BLOOD GAS PO2 84 mmHG (61-120); BLOOD GAS TOTAL HGB 15.6 G/DL (12.0-16.0); TEMP CORR TO 98.6
[2017-07-08 05:43] LABS: DRAW SITE LT RADIAL; LITER FLOW 3 L/M; NUMBER OF ARTERIAL PUNCTURES 1; OXYGEN DEVICE NASAL CANNULA; STAT NO; ULNAR PULSE PRESENT
[2017-07-08 05:45] LABS: CRITICAL VALUE YES
[2017-07-08] MEDS: PIPERACIL-TAZO 3.375 GM PREMIX 50 ML IV SCH ×3 (06:25→15:44)
[2017-07-08] MEDS: DOXYCYCLINE INJ 100 MG in SODIUM CHLORIDE 0.9% INJ 100 ML IV SCH ×2 (06:25→15:44)
[2017-07-08] MEDS: INSULIN ASPART SUPPLEMENTAL SCALE SQ SCH ×4 (07:09→21:50)
--- NOTE | 2017-07-08 07:32 | HHI.FPPN ---
Subjective Remarks No acute events overnight but this morning I received page stating that the patient was complaining of shortness of breath. Patient reports that this started last night along with substernal chest pain. Reports that this pain has been persistent throughout the night without any change in character. There is no associated diaphoresis, nausea/vomiting, abdominal pain. Patient also complaining of a sore throat. Vital signs overnight continued to show elevated BP around 180-200 systolic. Patient has also been tachypneic but with adequate oximetry on 3 L nasal cannula. Pulses have been around 100s and respiration rate has been around 20-30. Patient also found to have a fever at 4 :00 the morning of 100.6. (Deann Hickey MD, R3) Objective Vitals Vital Signs Date Time Temp Pulse Resp B/P (MAP) Pulse Ox O2 Delivery O2 Flow Rate FiO2 07/08/17 04:30 95 Nasal Cannula 3.00 Humidified 07/08/17 04:00 113 07/08/17 04:00 96 Nasal Cannula Humidified 07/08/17 04:00 100.6 113 24 191/87 (121) 96 07/08/17 03:53 96 21 07/08/17 02:45 183/77 (112) 07/08/17 02:00 108 07/08/17 00:15 184/84 (117) 07/08/17 00:00 100.2 111 32 180/83 (115) 97 07/08/17 00:00 111 07/07/17 22:30 94 3.00 07/07/17 22:00 115 07/07/17 21:00 99 Nasal Cannula 2.00 Humidified 07/07/17 20:59 98 Nasal Cannula 4.00 07/07/17 20:30 198/94 (128) 07/07/17 20:00 109 07/07/17 20:00 99 Nasal Cannula 3.00 07/07/17 20:00 99.0 109 32 198/87 (124) 99 07/07/17 18:00 117 07/07/17 16:00 99.9 117 43 208/88 (128) 96 07/07/17 16:00 117 07/07/17 14:00 105 07/07/17 12:00 99 07/07/17 12:00 97.5 99 25 187/104 (131) 97 07/07/17 11:07 Nasal Cannula 40 07/07/17 11:06 100 Nasal Cannula 4.00 07/07/17 11:06 100 Nasal Cannula 4 07/07/17 10:00 80 07/07/17 08:00 40 07/07/17 08:00 80 07/07/17 08:00 97.8 80 18 203/98 (133) 100 07/07/17 07:54 99 40 07/07/17 07:00 71 0 198/85 (122) 99 I/O 07/07/17 07/07/17 07/07/17 07/08/17 07/08/17 07/08/17 07:00 15:00 23:00 07:00 15:00 23:00 Intake Total 173 ml 100 ml 1410 ml Output Total 1801 ml 2600 ml Balance -1628 ml 100 ml -1190 ml IV Total 100 ml 1300 ml Tube Feeding 53 ml 50 ml Other 120 ml 60 ml Output Urine Total 1800 ml 2600 ml Stool Total 1 ml Tube Feeding Residual Discard 0 ml # Bowel Movements 2 (Deann Hickey MD, R3) Result Diagram: 07/07/17 0437 07/08/17 0137 Objective Remarks GEN: Well-developed, well-nourished patient. No acute distress. Resting comfortably in bed. CV: Increased rate but with regular rhythm without obvious murmurs, gallops, rubs. Chest pain not reproducible on palpation. LUNGS: Coarse breath sounds bilaterally at the bases but with good air movement. Normal respiratory effort. No wheezes, rales, rhonchi. Nasal cannula in place. GI: Soft, nontender, slightly distended. No palpable masses. EXT: No edema. No calf tenderness. 2+ pedal pulses bilaterally NEURO/PSYCH: Awake, alert. Appropriate insight and judgment. Normal speech (Deann Hickey MD, R3) A/P Assessment and Plan 51 year old female with complicated past medical history was found unresponsive and in respiratory failure, intubated in the ICU, extubated on 07/07/17 at 11 AM and currently stable. Discharge Planning 2-3days pending improvement in respiratory status. wdw Dr. Garcia (Deann Hickey MD, R3) Attending Attestation Patient seen and examined. Case reviewed and discussed with Dr. Hickey, RN, patient's at the bedside Agree with plan of care as discussed with me and documented in the resident note. (Lindsey Garcia MD) Problem List: (1) Respiratory failure ICD Codes: J96.90 - Respiratory failure, unspecified, unspecified whether with hypoxia or hypercapnia Status: Resolved Plan: Admitted with low GCS of 3 that improved to 10 but required intubation. Extubated on 07/07/17 but has been having tachypnea which has improved. Procalcitonin elevated. DDX COPD exacerbation, aspiration pneumonia, pulmonary embolism. - Sputum culture ordered but not yet obtained - Blood cultures negative x2days - Legionella/strep pneumo urinary antigens negative Medications: * Linezolid, Zosyn, and Doxycycline (see allergy list) to cover for possible aspiration pneumonia versus hospital acquired pneumonia (was recently in hospital on ventilator). Started 07/07/17. * Duonebs scheduled and PRN * Symbicort 160-4.5 inhaled 1 buff bid * Prednisone 40mg daily (2) Altered mental status ICD Codes: R41.82 - Altered mental status, unspecified Status: Resolved Plan: Found unresponsive with GCS of 3, improved somewhat with administration of Narcan. Concern was for Baclofen and/or hydrocodone overdose, bag of medications found next to her. CT head negative for acute process. Toxicology screen positive for opiates only. - EEG significant for pseudo periodic frontal discharges with background mild to moderate encephalopathy Neuro consulted: appreciate recommendations * IV fosphenytoin trial (3) Hypertension ICD Codes: I10 - Essential (primary) hypertension Status: Chronic Plan: BP's significantly elevated, systolic 180's to low 200's, diastolic 80's to 100's. - Amlodipine 10 mg PO daily - Metoprolol 100 mg PO bid - Increased lisinopril to 40mg daily - Discontinued duplicate losartan - Added HCTZ 25mg daily - Labetolol 10 mg IV q4hrs >160/90 - Hydralazine 20 mg IV q4hrs PRN for >160/90. (4) COPD (chronic obstructive pulmonary disease) ICD Codes: J44.9 - Chronic obstructive pulmonary disease, unspecified Status: Chronic Plan: Please see plan above under respiratory failure (5) Chest pain ICD Codes: R07.9 - Chest pain, unspecified Status: Acute Plan: Acute onset of chest pain and SOB that started the night of 07/07 but not reported by patient until the morning of 07/08. EKG and Troponin on 07/07 was unremarkable except for possible ST segment depression in lateral leads -Repeat EKG and troponin ordered -If negative, likely MSK related post intubation (6) DM (diabetes mellitus) ICD Codes: E11.9 - Type 2 diabetes mellitus without complications Status: Chronic Plan: BG elevated around 200-300 requiring high dose sliding scale of NovoLog. A1C 14 in March. -Currently on Levemir 5 units BID. Will increase after swallow assessment. -Repeat A1c (7) Polypharmacy ICD Codes: Z79.899 - Other mcc (current) drug therapy Status: Acute Plan: Patient has a number of medications that are likely contributing to her health status. Will need to streamline medications prior to discharge. Next goal should be clarifying antidepressant medications. (8) Nutrition, metabolism, and development symptoms ICD Codes: R63.8 - Other symptoms and signs concerning food and fluid intake Status: Acute Plan: Diet: NPO until swallow eval Fluids: NS at 124 mls/hr until good oral intake Electrolytes: ICU electrolyte protocol, monitor electrolytes and replace as needed DVT PPX: Heparin, Home Xarelto has been held GI PPX: Pepcid (Deann Hickey MD, R3) Problem Qualifiers (1) Respiratory failure: Qualified Codes: J96.00 - Acute respiratory failure, unspecified whether with hypoxia or hypercapnia (2) DM (diabetes mellitus): Deann Hickey MD, R3 Jul 08, 2017 07:32 Lindsey Garcia MD Jul 09, 2017 09:54
[2017-07-08] MEDS: CHLORHEXIDINE 0.12% (ORAL KIT) 15 ML CUP MT SCH ×2 (08:00→20:32)
[2017-07-08] MEDS: INSULIN DETEMIR 100 UNITS/ML VIAL SQ SCH ×3 (08:14→21:50)
[2017-07-08] MEDS: DOCUSATE SODIUM 50 MG/SENNA 8.6 MG TAB PO SCH ×2 (09:00→21:00)
[2017-07-08] MEDS: ARIPiprazole 15 MG TAB PO SCH (09:00)
[2017-07-08] MEDS: FAMOTIDINE 20 MG/2 ML VIAL IV PUSH SCH ×2 (09:23→21:46)
[2017-07-08] MEDS: LISINOPRIL 20 MG TAB PO SCH (09:25)
[2017-07-08] MEDS: FOSPHENYTOIN INJ 200 MGPE in SODIUM CHLORIDE 0.9% INJ 50 ML IV SCH ×2 (09:25→20:32)
[2017-07-08] MEDS: PREGABALIN 75 MG CAP PO SCH (09:26)
[2017-07-08] MEDS: predniSONE 20 MG TAB PO SCH ×3 (09:26→21:47)
[2017-07-08] MEDS: HYDROCHLOROTHIAZIDE 25 MG TAB PO SCH (09:26)
[2017-07-08] MEDS: PARoxetine HCL 20 MG TAB PO SCH (09:26)
[2017-07-08] MEDS: METOPROLOL TARTRATE 100 MG TAB PO SCH ×2 (09:26→21:47)
[2017-07-08] MEDS: busPIRone HCL 5 MG TAB PO SCH (09:27)
[2017-07-08] MEDS: SODIUM CHLORIDE 0.9% FLUSH 10 ML FLUSH SCH ×2 (09:27→20:32)
[2017-07-08] MEDS: BUDESONIDE-FORMOTEROL 160/4.5 MCG INHALER INH SCH ×2 (09:27→21:45)
[2017-07-08 11:11] LABS: BICARBONATE 17.9 MEQ/L (21.0-32.0); INDIRECT BILIRUBIN 0.5 MG/DL (0.0-0.8); TOTAL BILIRUBIN ADULT 0.6 MG/DL (0.2-1.0)
--- NOTE | 2017-07-08 11:22 | EKG ---
Date Performed: 07/07/2017 Time Performed: 16:44:55 PTAGE: 51 years EKG: SINUS TACHYCARDIA NONSPECIFIC ST & T-WAVE ABNORMALITY ABNORMAL RHYTHM ECG PREVIOUS TRACING : 07/05/2017 18.12 Compared to prior tracing no significant change DOCTOR: [place] Interpretating Date/Time 07/08/2017 11:20:25
--- NOTE | 2017-07-08 11:22 | EKG ---
Date Performed: 07/08/2017 Time Performed: 08:04:44 PTAGE: 51 years EKG: Sinus tachycardia. Poor R wave progression - probable normal variant Lateral ST changes are nonspecific Borderline ECG PREVIOUS TRACING : 07/07/2017 16.44 Compared to prior tracing no significant change DOCTOR: [place] Interpretating Date/Time 07/08/2017 11:20:36
[2017-07-08 12:06] LABS: POTASSIUM 2.8 MEQ/L (3.5-5.1)
[2017-07-08 13:44] LABS: HEMOGLOBIN A1a 1.1 %; HEMOGLOBIN A1b 1.4 %; HEMOGLOBIN Ao 74.9 %; HEMOGLOBIN F 1.9 %; HEMOGLOBIN LA1C 2.3 %; HEMOGLOBIN P3 4.5 %
--- NOTE | 2017-07-08 14:50 | HHI.CCPN ---
Subjective Remarks/Hospital Course 51-year-old female has been brought by EMS as being found unresponsive by her boyfriend. When EMS arrived at the scene GCS was 3. As per them patient received total of 2.4 mg of Narcan in succession after which she was a little more responsive although GCS was never more than 10. Respiration was shallow and patient was put on nonrebreather and brought in emergently. Upon arrival GCS was 10 and the rest of the vital signs were within acceptable limits. Patient was nonverbal. There was a bag full of medications that were both her and her 's. Among others there was baclofen and hydrocodone. Patient was intubated by ED attending for an airway protection. Subjective: 07/05: The patient still unresponsive not following commands, continues on propofol infusion. Patient noted to be hyperglycemic blood glucose in the 300s , Levemir added to medication regimen high-dose sliding scale insulin coverage. Concern for possibly baclofen overdosage which was found in conjunction with opiates, poison control notified. CK ammonia lactate levels pending trending up. Repeat EKG pending. 07/06: No acute changes overnight. CPAP trials discontinue secondary to hypertensive episode, of note patient not following any commands with sedation holiday. The patient has a history of hypertension and when necessary antihypertensive also given. During the night the patient's propofol infusion level was increased to 75mcgs. Today IV sedation changed to Precedex infusion only, plan for CPAP trials to resumed. 07/07: Gas exchange acceptable. Agitated when light. Will extubate on precedex and sort out BP issues after. Neuro status unclear but she has plenty of respiratory drive. 07/08: Breathing with acceptable comfort. Creeping acidosis may reflect her inability to put glucose into cells. Increase levemir coverage considerably and follow HCO3 closely. Appears adequately hydrated. Agree with choices for BP control. Clearly this woman is excessively medicated/sedated. I encourage any efforts to reduce her sedating prescriptions. Objective Vital Signs Date Time Temp Pulse Resp B/P (MAP) Pulse Ox O2 Delivery O2 Flow Rate FiO2 07/08/17 12:00 98.3 85 30 165/81 (109) 95 07/08/17 07:00 Nasal Cannula 3.00 07/08/17 03:53 21 Intake and Output 07/08/17 07/08/17 07/09/17 08:00 16:00 00:00 Output Total 1150 ml Balance -1150 ml Result Diagram: 07/07/17 0437 07/08/17 0920 Other Results Microbiology Date/Time Source Procedure Growth Status 07/07/17 15:45 Urine Catheterized Urine Legionella Antigen - Final PRESUMPTIVE NEGATIVE FOR LEGIONELLA P... Complete 07/07/17 15:45 Urine Catheterized Urine Streptococcus pneumoniae Antigen (M - Final PRESUMPTIVE NEGATIVE FOR STREPTOCOCCU... Complete Laboratory Tests Test 07/07/17 16:30 07/08/17 05:25 Blood Gas Puncture Site LT RADIAL LT RADIAL Blood Gas Patient Temperature 98.6 98.6 Blood Gas HCO3 18 mmol/L (22-26) 16 mmol/L (22-26) Blood Gas Base Excess -4.8 mmol/L (-2-2) -8.4 mmol/L (-2-2) Blood Gas Oxygen Saturation 93 % (90-100) 94 % (90-100) Arterial Blood pH 7.47 (7.380-7.420) 7.40 (7.380-7.420) Arterial Blood Partial Pressure CO2 25 mmHg (38-42) 26 mmHg (38-42) Arterial Blood Partial Pressure O2 79 mmHg (61-120) 84 mmHG (61-120) Arterial Blood Oxygen Content 15.3 Vol % (12.0-20.0) 20.6 Vol % (12.0-20.0) Arterial Blood Carboxyhemoglobin 1.4 % (0-4) 0.9 % (0-4) Arterial Blood Methemoglobin 1.1 % (0-2) 0.8 % (0-2) Blood Gas Hemoglobin 11.6 G/DL (12.0-16.0) 15.6 G/DL (12.0-16.0) Oxygen Delivery Device NASAL CANNULA NASAL CANNULA Blood Gas Liter Flow 3 L/M 3 L/M Imaging Last [address] 07/05/1753 Signed Impressions: Service Date/Time: Wednesday, July 05, 2017 02:26 - CONCLUSION: 1. No acute intracranial abnormality. Benito Chu MD Chest X-Ray 07/05/1753 Signed Impressions: Service Date/Time: Wednesday, July 05, 2017 01:23 - CONCLUSION: 1. ETT in good position. NGT beyond the GE junction with tip omitted from the image. 2. No acute abnormality or significant change. Benito Chu MD Objective Remarks GENERAL: Groggy, comfortable. SKIN: Warm and dry. HEAD: Normocephalic. EYES: No conjunctival icterus. No injection or drainage. NECK: Supple, trachea midline. Airway widely patent. No obstruction. CARDIOVASCULAR: Regular rate and rhythm without murmurs, gallops, or rubs. RESPIRATORY: Breath sounds equal bilaterally. No adventitious sounds. GASTROINTESTINAL: Abdomen soft, non-tender, nondistended. BS active. MUSCULOSKELETAL: No cyanosis, or edema. Well perfused. NEURO EXAM: Lethargic. Moves 4 limbs with strength. WYATT. Conversant. Soft voice. A/P Assessment and Plan Respiratory failure -Resolved Altered mental status - Polypharmacy - Per poison control monitor CMP - Neuro checks per unit protocol-didn't use sedation holiday - CT head negative - Supportive care Coronary artery disease - Aspirin - Pravastatin Hypertension - Norvasc - Losartan - Metoprolol COPD - Montelukast - Symbicort Depression/anxiety - Abilify - Buspirone - Paroxetine Chronic back pain - Baclofen-on hold - Lyrica-on hold - Zanaflex Hyperglycemia of critical illness -Levemir 20 units twice a day -Initiate high-dose sliding scale insulin protocol -Glucose monitoring per ICU protocol DVT GI prophylaxis - Teds SCDs - Xarelto and Pepcid-will resume xarelto after extubation Dispo: Discussed with INFRASTRUCTURE DEVELOPER at bedside. Overall impression: Improving respiratory status. Stable hemodynamics aside from chronic hypertension. Minimize back pain medications and reduce sedating- type drugs. Alhaji Hou MD Jul 08, 2017 14:50
[2017-07-08] MEDS: PHENOL 1.4% SOLN 180 ML BTL OROPHARYNG PRN ×2 (18:30→21:47)
[2017-07-08] MEDS: PRAVASTATIN SOD 20 MG TAB PO SCH (21:00)
[2017-07-08] MEDS: NORTRIPTYLINE HCL 25 MG CAP PO SCH (21:46)
[2017-07-08] MEDS: MONTELUKAST SODIUM 10 MG TAB PO SCH (21:46)
[2017-07-09] VITALS (29 sets, daily range): BP systolic 165–216; BP diastolic 77–105; PULSE 85–104; RESP 4–43; TEMP 98–98.9; O2SAT 89–100
[2017-07-09] MEDS: PIPERACIL-TAZO 3.375 GM PREMIX 50 ML IV SCH ×5 (00:53→22:57)
[2017-07-09] MEDS: hydrALAZINE HCL 20 MG/ML VIAL IV PUSH PRN ×3 (01:08→17:07)
[2017-07-09] MEDS: HEPARIN SODIUM - SQ 10,000 UNITS/ML VIAL SQ SCH ×2 (01:38→09:03)
[2017-07-09] MEDS: RESP: ALBUTEROL 2.5 MG/IPRATROPIUM 0.5 MG NEB (SCH) INH (03:21)
[2017-07-09] MEDS: LINEZOLID 600 MG PREMIX 300 ML IV SCH ×2 (03:54→16:08)
[2017-07-09] MEDS: LABETALOL HCL 100 MG/20 ML VIAL IV PUSH PRN ×3 (03:54→14:54)
[2017-07-09] MEDS: CHLORHEXIDINE GLUCONATE 2 % 1 PACK (2 CLOTHS) TOP SCH (04:00)
[2017-07-09] MEDS: SODIUM CHLOR 0.9% 1000 ML INJ 1,000 ML IV SCH (05:16)
[2017-07-09] MEDS: DOXYCYCLINE INJ 100 MG in SODIUM CHLORIDE 0.9% INJ 100 ML IV SCH ×2 (06:46→16:08)
[2017-07-09] MEDS: predniSONE 20 MG TAB PO SCH (06:46)
[2017-07-09 07:24] LABS: BASOPHIL % 0.3 % (0.0-2.0); HEMATOCRIT 35.8 % (35.0-46.0); LYMPH % 13.3 % (9.0-44.0); MEAN CELL VOLUME 83.9 FL (80.0-100.0); MEAN CORPUSCULAR HEMOGLOBIN 27.3 PG (27.0-34.0); MEAN CORPUSCULAR HGB CONC 32.5 % (32.0-36.0); NEUT % 81.4 % (16.0-70.0); PLATELET COUNT 309 TH/MM3 (150-450); RED BLOOD COUNT 4.27 MIL/MM3 (4.00-5.30); RED CELL DISTRIBUTION WIDTH 15.3 % (11.6-17.2); WHITE BLOOD COUNT 14.7 TH/MM3 (4.0-11.0)
[2017-07-09 07:26] LABS: HEMO FLAGS AUTO DIFF
[2017-07-09] MEDS: INSULIN ASPART SUPPLEMENTAL SCALE SQ SCH ×4 (07:43→20:27)
[2017-07-09 07:47] LABS: BICARBONATE 19.5 MEQ/L (21.0-32.0); POTASSIUM 3.3 MEQ/L (3.5-5.1)
[2017-07-09] MEDS: CHLORHEXIDINE 0.12% (ORAL KIT) 15 ML CUP MT SCH ×2 (08:00→20:00)
[2017-07-09] MEDS: DOCUSATE SODIUM 50 MG/SENNA 8.6 MG TAB PO SCH ×2 (08:02→20:25)
[2017-07-09 08:17] LABS: PLATELET ESTIMATE SMEAR NORMAL (NORMAL); PLATELET MORPHOLOGY NORMAL (NORMAL); SCAN/DIFF AUTO DIFF CONFIRMED
[2017-07-09] MEDS: ARIPiprazole 15 MG TAB PO SCH (09:00)
[2017-07-09] MEDS: INSULIN DETEMIR 100 UNITS/ML VIAL SQ SCH ×2 (09:00→20:27)
[2017-07-09] MEDS: FOSPHENYTOIN INJ 200 MGPE in SODIUM CHLORIDE 0.9% INJ 50 ML IV SCH ×2 (09:01→20:43)
[2017-07-09] MEDS: BUDESONIDE-FORMOTEROL 160/4.5 MCG INHALER INH SCH ×2 (09:02→20:26)
[2017-07-09] MEDS: LISINOPRIL 20 MG TAB PO SCH (09:04)
[2017-07-09] MEDS: METOPROLOL TARTRATE 100 MG TAB PO SCH ×2 (09:04→20:25)
[2017-07-09] MEDS: HYDROCHLOROTHIAZIDE 25 MG TAB PO SCH (09:04)
[2017-07-09] MEDS: PREGABALIN 75 MG CAP PO SCH (09:04)
[2017-07-09] MEDS: SODIUM CHLORIDE 0.9% FLUSH 10 ML FLUSH SCH ×2 (09:05→20:26)
[2017-07-09] MEDS: busPIRone HCL 5 MG TAB PO SCH (09:05)
[2017-07-09] MEDS: FAMOTIDINE 20 MG/2 ML VIAL IV PUSH SCH ×2 (09:05→20:26)
[2017-07-09] MEDS: ASPIRIN EC 81 MG TABEC PO SCH (09:05)
[2017-07-09] MEDS: POTASSIUM CHLOR 20 MEQ PREMIX 100 ML IV PRN ×3 (09:07→22:57)
[2017-07-09] MEDS ORDERED: FLUoxetine HCL 20 MG CAP PO ONE (09:30)
[2017-07-09] MEDS: SPIRONOLACTONE 25 MG TAB PO SCH (10:07)
--- NOTE | 2017-07-09 10:30 | HHI.FPPN ---
Subjective Remarks No acute issues overnight. Blood pressure remains elevated up to the 200/100s. She remains afebrile. She remains disoriented and confused. She denies any chest pain, shortness of breath, fever, chills, nausea or vomiting. She thinks she is at her friend Cassidy's house right now. (Alcira Roger MD, R3) Objective Vitals Vital Signs Date Time Temp Pulse Resp B/P (MAP) Pulse Ox O2 Delivery O2 Flow Rate FiO2 07/09/17 10:00 92 07/09/17 09:59 20 07/09/17 08:28 97 Nasal Cannula 3.00 07/09/17 08:00 94 07/09/17 08:00 98.0 94 27 194/90 (124) 96 07/09/17 07:00 96 35 206/93 (130) 97 07/09/17 07:00 98 Nasal Cannula 2.00 07/09/17 06:30 98 30 96 07/09/17 06:00 96 36 187/84 (118) 95 07/09/17 06:00 96 07/09/17 05:30 97 30 92 07/09/17 05:15 Nasal Cannula 3.00 07/09/17 05:15 93 Nasal Cannula 3.00 07/09/17 05:00 90 Nasal Cannula 2.00 07/09/17 05:00 104 17 216/105 (142) 89 07/09/17 05:00 216/105 (142) 07/09/17 04:30 97 19 07/09/17 04:30 97 19 07/09/17 04:00 96 07/09/17 04:00 96 42 207/87 (127) 07/09/17 04:00 98.9 96 32 207/87 (127) 93 07/09/17 03:30 96 39 97 07/09/17 03:00 93 39 201/102 (135) 93 07/09/17 02:30 92 39 93 07/09/17 02:00 91 07/09/17 02:00 91 35 189/98 (128) 93 07/09/17 01:30 96 32 94 07/09/17 01:27 97 22 198/95 (129) 94 07/09/17 01:10 203/101 (135) 07/09/17 01:00 90 34 203/101 (135) 90 07/09/17 00:30 91 43 182/94 (123) 92 07/09/17 00:15 87 4 184/90 (121) 92 07/09/17 00:00 98 41 194/97 (129) 07/09/17 00:00 98 07/09/17 00:00 98 41 194/97 (129) 07/09/17 00:00 98.6 98 32 194/97 (129) 93 07/08/17 23:45 92 35 187/93 (124) 94 07/08/17 23:30 92 35 184/88 (120) 95 07/08/17 23:15 90 32 188/89 (122) 93 07/08/17 23:00 87 27 188/90 (122) 93 07/08/17 22:45 90 36 191/92 (125) 91 07/08/17 22:30 92 32 189/90 (123) 93 07/08/17 22:15 94 36 199/94 (129) 93 07/08/17 22:01 95 37 180/99 (126) 93 07/08/17 22:00 91 27 94 07/08/17 22:00 91 07/08/17 21:45 94 22 173/80 (111) 93 07/08/17 21:30 91 37 194/93 (126) 93 07/08/17 21:16 94 21 07/08/17 21:15 90 31 178/86 (116) 94 07/08/17 21:00 88 35 187/90 (122) 94 07/08/17 20:45 90 39 186/91 (122) 95 07/08/17 20:30 89 36 181/88 (119) 94 07/08/17 20:15 91 34 175/82 (113) 95 07/08/17 20:00 96 Room Air 07/08/17 20:00 88 29 170/81 (110) 96 07/08/17 20:00 88 07/08/17 20:00 98.6 88 32 170/81 (110) 96 07/08/17 18:00 91 07/08/17 16:00 98.2 91 40 188/93 (124) 92 07/08/17 16:00 91 07/08/17 15:07 95 21 07/08/17 14:00 87 07/08/17 12:00 98.3 85 30 165/81 (109) 95 07/08/17 12:00 85 I/O 07/08/17 07/08/17 07/08/17 07/09/17 07/09/17 07/09/17 07:00 15:00 23:00 07:00 15:00 23:00 Intake Total 1084 ml 1290 ml 1130 ml 304 ml Output Total 1150 ml 450 ml 1100 ml 375 ml Balance -1150 ml 1084 ml 840 ml 30 ml -71 ml Intake Oral 240 ml 30 ml 250 ml IV Total 1084 ml 1050 ml 1100 ml 54 ml Output Urine Total 1150 ml 450 ml 1100 ml 375 ml # Bowel Movements 0 0 1 (Alcira Roger MD, R3) Result Diagram: 07/09/17 0659 07/09/17 0659 Imaging Last Impressions Chest X-Ray 07/08/17 0600 Signed Impressions: Service Date/Time: Saturday, July 08, 2017 03:38 - CONCLUSION: 1. Slight improvement in basilar airspace disease since July 07. Interval extubation. Robert Elliott MD Head CT 07/05/17 0054 Signed Impressions: Service Date/Time: Wednesday, July 05, 2017 02:26 - CONCLUSION: 1. No acute intracranial abnormality. Benito Chu MD Objective Remarks GEN: Well-developed, well-nourished patient. No acute distress. Sitting up in bed eating breakfast with assistance. CV: Increased rate but with regular rhythm without obvious murmurs, gallops, rubs. LUNGS: Coarse breath sounds bilaterally at the bases but with good air movement. Normal respiratory effort. No wheezes, rales, rhonchi. Nasal cannula in place. GI: Soft, nontender, slightly distended. No palpable masses. EXT: No edema. No calf tenderness. 2+ pedal pulses bilaterally NEURO/PSYCH: Awake, alert. Disoriented. Normal speech (Alcira Roger MD, R3) A/P Assessment and Plan 51 year old female with complicated past medical history who was found unresponsive and in respiratory failure, intubated in the ICU, extubated on 07/07 at 11 AM and currently stable. Discharge Planning Unclear timetable, pending improvement in mentation. dw Dr. Valadez (Alcira Roger MD, R3) Attending Attestation Patient seen and examined. Case reviewed and discussed with the resident team. Agree with plan of care as discussed with me and documented in the resident note. per Psychiatry note of a few days ago, she was oriented x 3. she is unclear as to where she is right now but is alert and conversant. She is clearly much improved from admission. agree with discontinuing as many sedating meds as possible. she has had several CVAs and a history and some recent seizures which can also be contributing to her confusion. another contributing factor could be ICU psychosis if she continues to not clear up mentally. will continue lyrica as it can be antiseizure. (Susan Valadez MD) Problem List: (1) Respiratory failure ICD Codes: J96.90 - Respiratory failure, unspecified, unspecified whether with hypoxia or hypercapnia Status: Resolved Plan: Admitted with low GCS of 3 that improved to 10 but required intubation. Extubated on 07/07/17 but has been having tachypnea which has improved. Procalcitonin elevated. DDX COPD exacerbation, aspiration pneumonia, pulmonary embolism. - Sputum culture pending - Blood cultures negative x3 days - Legionella/strep pneumo urinary antigens negative Medications: * Linezolid, Zosyn, and Doxycycline (see allergy list) to cover for possible aspiration pneumonia versus hospital acquired pneumonia (was recently in hospital on ventilator). Started 07/07/17. * Duonebs scheduled and PRN * Symbicort 160-4.5 inhaled 1 buff bid * Prednisone 40mg daily (2) Altered mental status ICD Codes: R41.82 - Altered mental status, unspecified Status: Acute Plan: Found unresponsive with GCS of 3, improved somewhat with administration of Narcan. Concern was for Baclofen and/or hydrocodone overdose, bag of medications found next to her. CT head negative for acute process. Toxicology screen positive for opiates only. Now with disorientation, may be secondary to resumption of PO meds after extubation. - EEG significant for pseudo periodic frontal discharges with background mild to moderate encephalopathy Neuro consulted: appreciate recommendations * IV fosphenytoin trial (3) Hypertension ICD Codes: I10 - Essential (primary) hypertension Status: Chronic Plan: BP's significantly elevated, systolic 180's-200's/80's-100's. - Amlodipine 10 mg PO daily - Metoprolol 100 mg PO bid - Lisinopril to 40mg daily - HCTZ 25mg daily - Will add Spironolactone 25mg PO daily, continue to monitor electrolytes - Labetolol 10 mg IV q4hrs >160/90 - Hydralazine 20 mg IV q4hrs PRN for >160/90. (4) COPD (chronic obstructive pulmonary disease) ICD Codes: J44.9 - Chronic obstructive pulmonary disease, unspecified Status: Chronic (5) Chest pain ICD Codes: R07.9 - Chest pain, unspecified Status: Resolved Plan: Acute onset of chest pain and SOB that started the night of 07/07 but not reported by patient until the morning of 07/08. EKG and Troponin on 07/07 was unremarkable except for possible ST segment depression in lateral leads -Repeat EKG and troponin unremarkable -Likely MSK related post intubation (6) DM (diabetes mellitus) ICD Codes: E11.9 - Type 2 diabetes mellitus without complications Status: Chronic Plan: BG elevated around 174-297. A1C 13.3. -Levemir 20 units BID and SSI. (7) Polypharmacy ICD Codes: Z79.899 - Other alf (current) drug therapy Status: Acute Plan: Patient has a number of medications that are likely contributing to her health status. Many medications discontinued today including BuSpar, Zanaflex, and Baclofen Will start to taper nortriptyline from 50 mg by mouth daily to 40 mg by mouth daily today Paxil discontinued yesterday, will give one-time dose of Prozac 20 mg as it has a long half-life, in order to event withdrawal (8) Nutrition, metabolism, and development symptoms ICD Codes: R63.8 - Other symptoms and signs concerning food and fluid intake Status: Acute Plan: Diet: Pureed, diabetic diet Fluids: NS at 125 mls/hr until good oral intake Electrolytes: ICU electrolyte protocol, monitor electrolytes and replace as needed DVT PPX: Heparin 5000units Q8h, Home Xarelto has been held GI PPX: Pepcid 10mg IV Q12H (Alcira Roger MD, R3) Problem Qualifiers (1) Respiratory failure: Qualified Codes: J96.00 - Acute respiratory failure, unspecified whether with hypoxia or hypercapnia (2) Altered mental status: Qualified Codes: R41.0 - Disorientation, unspecified (3) Hypertension: Qualified Codes: I10 - Essential (primary) hypertension (4) COPD (chronic obstructive pulmonary disease): Qualified Codes: J43.8 - Other emphysema (5) Chest pain: Qualified Codes: R07.89 - Other chest pain (6) DM (diabetes mellitus): Qualified Codes: E11.65 - Type 2 diabetes mellitus with hyperglycemia; Z79.4 - group home (current) use of insulin Alcira Roger MD, R3 Jul 09, 2017 10:30 Susan Valadez MD Jul 09, 2017 16:22
--- NOTE | 2017-07-09 15:40 | HHI.CCPN ---
Subjective Remarks/Hospital Course 51-year-old female has been brought by EMS as being found unresponsive by her boyfriend. When EMS arrived at the scene GCS was 3. As per them patient received total of 2.4 mg of Narcan in succession after which she was a little more responsive although GCS was never more than 10. Respiration was shallow and patient was put on nonrebreather and brought in emergently. Upon arrival GCS was 10 and the rest of the vital signs were within acceptable limits. Patient was nonverbal. There was a bag full of medications that were both her and her 's. Among others there was baclofen and hydrocodone. Patient was intubated by ED attending for an airway protection. Subjective: 07/05: The patient still unresponsive not following commands, continues on propofol infusion. Patient noted to be hyperglycemic blood glucose in the 300s , Levemir added to medication regimen high-dose sliding scale insulin coverage. Concern for possibly baclofen overdosage which was found in conjunction with opiates, poison control notified. CK ammonia lactate levels pending trending up. Repeat EKG pending. 07/06: No acute changes overnight. CPAP trials discontinue secondary to hypertensive episode, of note patient not following any commands with sedation holiday. The patient has a history of hypertension and when necessary antihypertensive also given. During the night the patient's propofol infusion level was increased to 75mcgs. Today IV sedation changed to Precedex infusion only, plan for CPAP trials to resumed. 07/07: Gas exchange acceptable. Agitated when light. Will extubate on precedex and sort out BP issues after. Neuro status unclear but she has plenty of respiratory drive. 07/08: Breathing with acceptable comfort. Creeping acidosis may reflect her inability to put glucose into cells. Increase levemir coverage considerably and follow HCO3 closely. Appears adequately hydrated. Agree with choices for BP control. Clearly this woman is excessively medicated/sedated. I encourage any efforts to reduce her sedating prescriptions. 07/09: Critical Care medicine reconsulted last evening for respiratory distress. Patient progressing well, currently on room air, in no respiratory distress. Speech evaluation performed today, patient's diet advance to mechanical soft. Objective Vital Signs Date Time Temp Pulse Resp B/P (MAP) Pulse Ox O2 Delivery O2 Flow Rate FiO2 07/09/17 14:00 88 07/09/17 12:00 98.2 21 165/81 (109) 95 07/09/17 08:28 Nasal Cannula 3.00 07/08/17 21:16 21 Intake and Output 07/09/17 07/09/17 07/10/17 08:00 16:00 00:00 Intake Total 1130 ml 454 ml Output Total 1100 ml 375 ml Balance 30 ml 79 ml Result Diagram: 07/09/17 0659 07/09/17 0659 Other Results Microbiology Date/Time Source Procedure Growth Status 07/07/17 15:45 Urine Catheterized Urine Legionella Antigen - Final PRESUMPTIVE NEGATIVE FOR LEGIONELLA P... Complete 07/07/17 15:45 Urine Catheterized Urine Streptococcus pneumoniae Antigen (M - Final PRESUMPTIVE NEGATIVE FOR STREPTOCOCCU... Complete Imaging Last [address] 07/05/1753 Signed Impressions: Service Date/Time: Wednesday, July 05, 2017 02:26 - CONCLUSION: 1. No acute intracranial abnormality. Benito Chu MD Chest X-Ray 07/05/1753 Signed Impressions: Service Date/Time: Wednesday, July 05, 2017 01:23 - CONCLUSION: 1. ETT in good position. NGT beyond the GE junction with tip omitted from the image. 2. No acute abnormality or significant change. Benito Chu MD Objective Remarks GENERAL: Awake and alert in [place] female on room air in no acute distress SKIN: Warm and dry. HEAD: Normocephalic. EYES: No conjunctival icterus. No injection or drainage. NECK: Supple, trachea midline. Airway widely patent. No obstruction. CARDIOVASCULAR: Regular rate and rhythm without murmurs, gallops, or rubs. RESPIRATORY: Breath sounds equal bilaterally. No adventitious sounds. GASTROINTESTINAL: Abdomen soft, non-tender, nondistended. BS active. MUSCULOSKELETAL: No cyanosis, or edema. Well perfused. NEURO EXAM: Lethargic. Moves 4 limbs with strength. WYATT. Conversant. Soft voice. Noted motor strength decreased left upper and lower extremity secondary to previous CVA A/P Assessment and Plan Respiratory failure -Resolved Altered mental status - Polypharmacy - Per poison control monitor CMP - Neuro checks per unit protocol-didn't use sedation holiday - CT head negative - Supportive care Coronary artery disease - Aspirin - Pravastatin Hypertension - Norvasc - Losartan - Metoprolol COPD - Montelukast - Symbicort Depression/anxiety - Abilify - Buspirone - Paroxetine Chronic back pain - Baclofen-on hold - Lyrica-on hold - Zanaflex Hyperglycemia of critical illness -Levemir 20 units twice a day -Initiate high-dose sliding scale insulin protocol -Glucose monitoring per ICU protocol DVT GI prophylaxis - Teds SCDs - Xarelto and Pepcid-will resume xarelto after extubation Dispo: Discussed with TAX ATTORNEY at bedside. Discussed with Dr. Roger Service Critical care medicine will sign off now. Patient's respiratory status is stable currently on room air O2 sat duration 97-99%. Thank you for participation the patient in the care of this patient. Overall impression: Improving respiratory status. Stable hemodynamics aside from chronic hypertension. Minimize back pain medications and reduce sedating- type drugs. Physician Jennifer Guevara MD Jul 09, 2017 15:40
[2017-07-09] MEDS: RIVAROXABAN 20 MG TAB PO SCH (17:07)
--- NOTE | 2017-07-09 19:39 | HHI.PR ---
Review/Management Diagnosis/Plan: (1) Acute encephalopathy ICD Codes: G93.40 - Encephalopathy, unspecified Status: Acute Plan: metabolic: resp failure/pneumonia. ? excessive med ingestion at home- pt denies iv cerebryx trial recs neuro stable corrected dil 13.28; continue current dilantin dose ok for 5th floor [facility] with tele may need inpt rehab (2) Respiratory failure ICD Codes: J96.90 - Respiratory failure, unspecified, unspecified whether with hypoxia or hypercapnia Status: Resolved (3) History of CVA (cerebrovascular accident) ICD Codes: Z86.73 - History of stroke Status: Chronic (4) CAD (coronary artery disease) ICD Codes: I25.10 - Atherosclerosis of coronary artery Status: Chronic Subjective Subjective Comments No acute events reported No headache No chest pain No dyspnea Active Medications Current Medications Medications (Trade) Dose Ordered Sig/Katharine Route Start Time Stop Time Status Last Admin (Norvasc) 10 mg DAILY PO 07/05/17 09:00 07/09/17 09:04 (Abilify) 15 mg DAILY PO 07/05/17 09:00 07/09/17 09:00 (Ecotrin Ec) 81 mg EVERY OTHER DAY PO 07/05/17 09:00 07/09/17 09:05 (Pravachol) 20 mg HS PO 07/05/17 21:00 07/08/17 21:00 (Lopressor) 100 mg BID PO 07/05/17 09:00 07/09/17 09:04 (Singulair) 10 mg HS PO 07/05/17 21:00 07/08/17 21:46 (Lyrica) 75 mg DAILY PO 07/05/17 09:00 07/09/17 09:04 (Symbicort 160-4.5 Inh) 1 puff BID INH 07/05/17 09:00 07/09/17 09:02 Sodium Chloride 1,000 ml @ 75 mls/hr [id number] IV 07/05/17 02:03 07/09/17 05:16 (NS Flush) 2 ml UNSCH PRN .XX 07/05/17 02:15 (NS Flush) 2 ml BID .XX 07/05/17 09:00 07/09/17 09:05 (Tylenol) 650 mg Q6H PRN PO 9/8/17 02:15 07/05/17 21:16 (Pepcid Inj) 10 mg Q12HR IV PUSH 07/05/17 09:00 07/09/17 09:05 (Zofran Inj) 4 mg Q6H PRN IV PUSH 07/05/17 02:15 (Duoneb Neb) 1 ampule Q2HR NEB PRN INH 07/05/17 02:15 07/08/17 06:47 Miscellaneous Information 1 Q361D XX 07/05/17 02:15 (Chlorhexidine 2% Cloth) 3 pack Taper DAILY@04 TOP 07/05/17 04:00 07/01/18 03:59 07/06/17 04:20 (Chlorhexidine 2% Cloth) 3 pack UNSCH PRN TOP 07/05/17 02:15 (Ashley-Colace) 1 tab BID PO 07/05/17 09:00 07/07/17 08:11 (Milk Of Magnesia Liq) 30 ml Q12H PRN PO 07/05/17 02:15 (Senokot) 17.2 mg Q12H PRN PO 07/05/17 02:15 (Dulcolax Supp) 10 mg DAILY PRN RECTAL 07/05/17 02:15 (Lactulose Liq) 30 ml DAILY PRN PO 07/05/17 02:15 (Peridex 0.12% Liq) 15 ml BID@08,20 MT 07/05/17 08:00 07/08/17 20:32 (D50w (Vial) Inj) 50 ml UNSCH PRN IV 07/05/17 03:45 (Glucagon Inj) 1 mg UNSCH PRN OTHER 07/05/17 03:45 (Apresoline Inj) 20 mg Q4H PRN IV PUSH 07/05/17 04:45 07/09/17 17:07 (Trandate Inj) 10 mg Q4H PRN IV PUSH 07/05/17 04:45 07/09/17 14:54 (NovoLOG SUPPLEMENTAL SCALE) 1 ACHS SLIDING SCALE SQ 07/05/17 16:00 07/09/17 16:00 Potassium Chloride 100 ml @ 50 mls/hr Q2H PRN IV 07/07/17 11:00 Potassium Chloride 100 ml @ 50 mls/hr Q2H PRN IV 07/07/17 11:00 07/08/17 19:26 (K-Lyte Cl Eff) 50 meq UNSCH PRN PO 07/07/17 11:00 Potassium Chloride 100 ml @ 25 mls/hr UNSCH PRN IV 07/07/17 11:00 Potassium Chloride 100 ml @ 50 mls/hr Q2H PRN IV 07/07/17 11:00 07/09/17 12:06 Magnesium Sulfate 4 gm/Sodium Chloride 100 ml @ 50 mls/hr UNSCH PRN IV 07/07/17 11:00 (Mag-Ox) 800 mg UNSCH PRN PO 07/07/17 11:00 Magnesium Sulfate 2 gm/Sodium Chloride 100 ml @ 50 mls/hr UNSCH PRN IV 07/07/17 11:00 (K-Phos) 2,000 mg Q4H PRN PO 07/07/17 11:00 Sodium Phosphate 30 mmol/Sodium Chloride 250 ml @ 42 mls/hr UNSCH PRN IV 07/07/17 11:00 (K-Phos) 2,000 mg UNSCH PRN PO/TUBE 07/07/17 11:00 Potassium Phosphate 30 mmol/ Sodium Chloride 260 ml @ 42 mls/hr UNSCH PRN IV 07/07/17 11:00 07/07/17 15:00 Linezolid 300 ml @ 300 mls/hr Q12H IV 07/07/17 16:00 07/09/17 16:08 Piperacillin Sod/ Tazobactam Sod 50 ml @ 100 mls/hr Q6H IV 07/07/17 17:00 07/09/17 16:08 Doxycycline Hyclate 100 mg/ Sodium Chloride 100 ml @ 100 mls/hr Q12H IV 07/07/17 17:00 07/09/17 16:08 Fosphenytoin Sodium 200 mgpe/ Sodium Chloride 54 ml @ 216 mls/hr Q12H IV 07/08/17 08:00 07/09/17 09:01 (Prinivil) 40 mg DAILY PO 07/08/17 09:00 07/09/17 09:04 (Hydrodiuril) 25 mg DAILY PO 07/08/17 09:00 07/09/17 09:04 (Chloraseptic [place]) 2 spray Q2H PRN OROPHARYNG 07/08/17 13:00 07/08/17 21:47 (Levemir Inj) 20 units Q12HR SQ 07/08/17 13:00 07/09/17 09:00 (Aldactone) 25 mg DAILY PO 07/09/17 09:15 07/09/17 10:07 (Deltasone) 40 mg DAILY PO 07/10/17 09:00 (Xarelto) 20 mg DAILY PO 07/09/17 16:00 07/09/17 17:07 Allergies Allergies Coded Allergies ciprofloxacin (Unverified Allergy, Severe, SWELLING SOB, 07/05/17) erythromycin base (Unverified Allergy, Severe, SWELLING SOB, 07/05/17) tramadol (Unverified Allergy, Severe, rash, 07/05/17) vancomycin (Unverified Allergy, Severe, SWELLING AND SOB, 07/05/17) Review of Systems All other ROS: ROS reviewed as documented in chart Exam I&O / VS 07/09/17 07/09/17 07/10/17 15:00 23:00 07:00 Intake Total 454 ml 1650 ml Output Total 625 ml 400 ml Balance -171 ml 1250 ml Intake Oral 250 ml 250 ml IV Total 204 ml 1400 ml Output Urine Total 625 ml 400 ml # Voids 1 1 # Bowel Movements 0 Vital Signs Date Time Temp Pulse Resp B/P (MAP) Pulse Ox O2 Delivery O2 Flow Rate FiO2 07/09/17 18:00 98 07/09/17 16:00 92 07/09/17 16:00 98.5 92 11 195/89 (124) 98 07/09/17 14:00 88 07/09/17 12:00 98.2 86 21 165/81 (109) 95 07/09/17 12:00 86 07/09/17 12:00 98 Room Air 07/09/17 10:00 92 07/09/17 09:59 20 07/09/17 08:28 97 Nasal Cannula 3.00 07/09/17 08:00 94 07/09/17 08:00 98.0 94 27 194/90 (124) 96 07/09/17 07:00 96 35 206/93 (130) 97 07/09/17 07:00 98 Nasal Cannula 2.00 07/09/17 06:30 98 30 96 07/09/17 06:00 96 36 187/84 (118) 95 07/09/17 06:00 96 07/09/17 05:30 97 30 92 07/09/17 05:15 Nasal Cannula 3.00 07/09/17 05:15 93 Nasal Cannula 3.00 07/09/17 05:00 90 Nasal Cannula 2.00 07/09/17 05:00 104 17 216/105 (142) 89 07/09/17 05:00 216/105 (142) 07/09/17 04:30 97 19 07/09/17 04:30 97 19 07/09/17 04:00 96 07/09/17 04:00 96 42 207/87 (127) 07/09/17 04:00 98.9 96 32 207/87 (127) 93 07/09/17 03:30 96 39 97 07/09/17 03:00 93 39 201/102 (135) 93 07/09/17 02:30 92 39 93 07/09/17 02:00 91 07/09/17 02:00 91 35 189/98 (128) 93 07/09/17 01:30 96 32 94 07/09/17 01:27 97 22 198/95 (129) 94 07/09/17 01:10 203/101 (135) 07/09/17 01:00 90 34 203/101 (135) 90 07/09/17 00:30 91 43 182/94 (123) 92 07/09/17 00:15 87 4 184/90 (121) 92 07/09/17 00:00 98 41 194/97 (129) 07/09/17 00:00 98 07/09/17 00:00 98 41 194/97 (129) 07/09/17 00:00 98.6 98 32 194/97 (129) 93 07/08/17 23:45 92 35 187/93 (124) 94 07/08/17 23:30 92 35 184/88 (120) 95 07/08/17 23:15 90 32 188/89 (122) 93 07/08/17 23:00 87 27 188/90 (122) 93 07/08/17 22:45 90 36 191/92 (125) 91 07/08/17 22:30 92 32 189/90 (123) 93 07/08/17 22:15 94 36 199/94 (129) 93 07/08/17 22:01 95 37 180/99 (126) 93 07/08/17 22:00 91 27 94 07/08/17 22:00 91 07/08/17 21:45 94 22 173/80 (111) 93 07/08/17 21:30 91 37 194/93 (126) 93 07/08/17 21:16 94 21 07/08/17 21:15 90 31 178/86 (116) 94 07/08/17 21:00 88 35 187/90 (122) 94 07/08/17 20:45 90 39 186/91 (122) 95 07/08/17 20:30 89 36 181/88 (119) 94 07/08/17 20:15 91 34 175/82 (113) 95 07/08/17 20:00 96 Room Air 07/08/17 20:00 88 29 170/81 (110) 96 07/08/17 20:00 88 07/08/17 20:00 98.6 88 32 170/81 (110) 96 General: Alert and Oriented, No acute distress Eye: EOMI Respiratory: Non-labored respirations Neurologic: Alert, Oriented, CN II-XII intact Psychiatric: Cooperative, Appropriate mood & affect Exam Comments ox 3, follows, recognizes me, eomi, face sym, ou 3-2mm, mild left ue/le 4/5 from old stroke with increased tone, to to gravity Objective Micro and Labs Laboratory Tests Test 07/09/17 06:59 07/09/17 13:54 White Blood Count 14.7 Red Blood Count 4.27 Hemoglobin 11.6 Hematocrit 35.8 Mean Corpuscular Volume 83.9 Mean Corpuscular Hemoglobin 27.3 Mean Corpuscular Hemoglobin Concent 32.5 Red Cell Distribution Width 15.3 Platelet Count 309 Mean Platelet Volume 8.4 Neutrophils (%) (Auto) 81.4 Lymphocytes (%) (Auto) 13.3 Monocytes (%) (Auto) 5.0 Eosinophils (%) (Auto) 0.0 Basophils (%) (Auto) 0.3 Neutrophils # (Auto) 12.0 Lymphocytes # (Auto) 2.0 Monocytes # (Auto) 0.7 Eosinophils # (Auto) 0.0 Basophils # (Auto) 0.0 CBC Comment AUTO DIFF Differential Comment AUTO DIFF CONFIRMED Platelet Estimate NORMAL Platelet Morphology Comment NORMAL Red Cell Morphology Comment NORMAL Blood Urea Nitrogen 16 Creatinine 0.75 Random Glucose 201 Calcium Level 8.9 Sodium Level 142 Potassium Level 3.3 Chloride Level 112 Carbon Dioxide Level 19.5 Anion Gap 11 Estimat Glomerular Filtration Rate 98 Phenytoin (Dilantin) Level 7.7 Date/Time Source Procedure Growth Status 07/05/17 01:15 Blood Peripheral Aerobic Blood Culture - Preliminary NO GROWTH IN 4 DAYS Resulted 07/05/17 01:15 Blood Peripheral Anaerobic Blood Culture - Preliminary NO GROWTH IN 4 DAYS Resulted 07/08/17 17:00 Sputum Expectorated Sputum Gram Stain - Final Resulted 07/08/17 17:00 Sputum Expectorated Sputum Sputum Culture - Preliminary HEAVY GROWTH NORMAL RESPIRATORY QUIN... Resulted 07/07/17 15:45 Urine Catheterized Urine Legionella Antigen - Final PRESUMPTIVE NEGATIVE FOR LEGIONELLA P... Complete 07/07/17 15:45 Urine Catheterized Urine Streptococcus pneumoniae Antigen (M - Final PRESUMPTIVE NEGATIVE FOR STREPTOCOCCU... Complete Problem Qualifiers (1) Respiratory failure: Qualified Codes: J96.00 - Acute respiratory failure, unspecified whether with hypoxia or hypercapnia (2) CAD (coronary artery disease): Steve Clark MD Jul 09, 2017 19:39
[2017-07-09] MEDS: MONTELUKAST SODIUM 10 MG TAB PO SCH (20:25)
[2017-07-09] MEDS: PRAVASTATIN SOD 20 MG TAB PO SCH (20:25)
[2017-07-09] MEDS ORDERED: NORTRIPTYLINE HCL 10 MG CAP PO SCH (21:00)
[2017-07-10] VITALS (12 sets, daily range): BP systolic 171–188; BP diastolic 78–89; PULSE 81–95; RESP 18–32; TEMP 97.3–99; O2SAT 97–100
[2017-07-10] MEDS: LABETALOL HCL 100 MG/20 ML VIAL IV PUSH PRN ×2 (01:30→17:52)
[2017-07-10] MEDS: POTASSIUM CHLOR 20 MEQ PREMIX 100 ML IV PRN ×4 (01:30→15:09)
[2017-07-10] MEDS ORDERED: HALOPERIDOL LACTATE 5 MG/ML AMP IV PRN (03:15)
[2017-07-10] MEDS ORDERED: HALOPERIDOL LACTATE 5 MG/ML AMP IM PRN (03:15)
[2017-07-10] MEDS ORDERED: cloNIDine HCL 0.1 MG TAB PO ONE (03:45)
[2017-07-10] MEDS ORDERED: ARIPiprazole 15 MG TAB PO SCH (03:45)
[2017-07-10] MEDS: ARIPiprazole 15 MG TAB PO SCH ×2 (03:51→08:21)
--- NOTE | 2017-07-10 03:56 | HHI.FPPN ---
Addendum to progress note ADDENDUM Reason for addendum: Additonal documentation Additional information Patient seen and evaluated for agitation. She has ripped out 3 IVs and is refusing all medications. She was put in non-violent restraints and became more agitated. She remains confused and aggressive toward nurses. Subjective: She is saying that she wants to go home. She denies being in pain. She is not oriented to person or place. She knows that her PCP is Juan Ramon Jason. She is aware that she may have a pneumonia. Objective: BP 190/100, Pulse 100, RR 20, 99% on RA GEN: Agitated, confused. HEENT: EOMI CV: RRR Lungs: CTAB posterior lung nunes A/P: 1) Agitation / Delirium May be secondary to opiate/drug withdrawal. Medication side effect. Metabolic derangement. Infection. Currently refusing all therapies (IV, IM meds). Continue home Abilify 15 mg daily, Vistaril 50 mg q HS, and add clonidine 0.1 mg PO for possible withdrawal and elevated BPs. May need to be goddard acted for self harm and lack of capacity. 2) Hypokalemia - repeat BMP showed Potassium of 2.9 - has gotten 20 mEq of the 80 mEq ordered 2/2 to refusal. 3) Resp distress Stable. No acute respiratory distress at the current time. Lung sounds clear bilaterally. Sating at 99% on room air. wdw Dr. Roger in AM. Rakesh Castillo MD, R3 Jul 10, 2017 03:56
[2017-07-10] MEDS: LINEZOLID 600 MG PREMIX 300 ML IV SCH (04:00)
[2017-07-10] MEDS: CHLORHEXIDINE GLUCONATE 2 % 1 PACK (2 CLOTHS) TOP SCH (04:00)
[2017-07-10] MEDS: PIPERACIL-TAZO 3.375 GM PREMIX 50 ML IV SCH (04:41)
[2017-07-10] MEDS: DOXYCYCLINE INJ 100 MG in SODIUM CHLORIDE 0.9% INJ 100 ML IV SCH (04:41)
[2017-07-10] MEDS: INSULIN ASPART SUPPLEMENTAL SCALE SQ SCH ×5 (07:00→21:00)
[2017-07-10] MEDS: FOSPHENYTOIN INJ 200 MGPE in SODIUM CHLORIDE 0.9% INJ 50 ML IV SCH ×2 (08:00→21:28)
[2017-07-10] MEDS: CHLORHEXIDINE 0.12% (ORAL KIT) 15 ML CUP MT SCH ×2 (08:00→20:00)
[2017-07-10] MEDS: BUDESONIDE-FORMOTEROL 160/4.5 MCG INHALER INH SCH ×2 (08:20→21:26)
[2017-07-10] MEDS: SODIUM CHLORIDE 0.9% FLUSH 10 ML FLUSH SCH ×2 (08:20→20:18)
[2017-07-10] MEDS: HYDROCHLOROTHIAZIDE 25 MG TAB PO SCH (08:21)
[2017-07-10] MEDS: PREGABALIN 75 MG CAP PO SCH (08:22)
[2017-07-10] MEDS: RIVAROXABAN 20 MG TAB PO SCH (08:22)
[2017-07-10] MEDS: DOCUSATE SODIUM 50 MG/SENNA 8.6 MG TAB PO SCH ×2 (08:22→20:18)
[2017-07-10] MEDS: SPIRONOLACTONE 25 MG TAB PO SCH (08:22)
[2017-07-10] MEDS: METOPROLOL TARTRATE 100 MG TAB PO SCH ×2 (08:22→20:17)
[2017-07-10] MEDS: LISINOPRIL 20 MG TAB PO SCH (08:23)
[2017-07-10] MEDS: INSULIN DETEMIR 100 UNITS/ML VIAL SQ SCH ×2 (08:23→21:00)
[2017-07-10] MEDS: FAMOTIDINE 20 MG/2 ML VIAL IV PUSH SCH (08:54)
[2017-07-10] MEDS ORDERED: predniSONE 20 MG TAB PO SCH (09:00)
--- NOTE | 2017-07-10 09:34 | HHI.FPPN ---
Subjective Remarks Patient with episodes of agitation overnight. She is calm this morning however remains disoriented to place and time. She is feeling much better overall. She no longer has shortness of breath and denies any chest pain, leg pain, abdominal pain, fever, chills, nausea, or vomiting. She continues to have an intermittent and right sided headache that is not associated with any visual changes. She states that her headache improves when her blood pressure is lower. (Alcira Roger MD, R3) Objective Vitals Vital Signs Date Time Temp Pulse Resp B/P (MAP) Pulse Ox O2 Delivery O2 Flow Rate FiO2 07/10/17 08:00 98.0 85 26 176/79 (111) 100 07/10/17 08:00 85 07/10/17 07:00 100 Room Air 07/10/17 06:00 92 07/10/17 04:00 98.7 88 31 99 07/10/17 04:00 88 07/10/17 02:00 91 07/10/17 00:00 81 07/10/17 00:00 98.5 81 32 179/81 (113) 99 07/09/17 22:00 85 07/09/17 20:13 100 21 07/09/17 20:00 98.7 93 27 174/77 (109) 100 07/09/17 20:00 93 07/09/17 19:00 100 Room Air 07/09/17 18:00 98 07/09/17 16:00 92 07/09/17 16:00 98.5 92 11 195/89 (124) 98 07/09/17 14:00 88 07/09/17 12:00 98.2 86 21 165/81 (109) 95 07/09/17 12:00 86 07/09/17 12:00 98 Room Air 07/09/17 10:00 92 07/09/17 09:59 20 I/O 07/09/17 07/09/17 07/09/17 07/10/17 07/10/17 07/10/17 07:00 15:00 23:00 07:00 15:00 23:00 Intake Total 1130 ml 454 ml 1650 ml 761 ml 54 ml Output Total 1100 ml 625 ml 400 ml Balance 30 ml -171 ml 1250 ml 761 ml 54 ml Intake Oral 30 ml 250 ml 250 ml IV Total 1100 ml 204 ml 1400 ml 761 ml 54 ml Output Urine Total 1100 ml 625 ml 400 ml # Voids 1 1 5 # Bowel Movements 1 0 (Alcira Roger MD, R3) Result Diagram: 07/09/17 0659 07/09/17 1934 Imaging Last Impressions Chest X-Ray 07/08/17 0600 Signed Impressions: Service Date/Time: Saturday, July 08, 2017 03:38 - CONCLUSION: 1. Slight improvement in basilar airspace disease since July 07. Interval extubation. Robert Elliott MD Head CT 07/05/17 0054 Signed Impressions: Service Date/Time: Wednesday, July 05, 2017 02:26 - CONCLUSION: 1. No acute intracranial abnormality. Benito Chu MD Objective Remarks GEN: Well-developed, well-nourished female patient sitting in chair in no acute distress. CV: Increased rate but with regular rhythm without obvious murmurs, gallops, rubs. LUNGS: Clear to auscultation bilaterally. Normal respiratory effort. No wheezes , rales, rhonchi. Breathing room air. GI: Soft, nontender, nondistended. No palpable masses. EXT: No edema. No calf tenderness. 2+ pedal pulses bilaterally NEURO/PSYCH: Awake, alert. Disoriented to place and time. Normal speech (Alcira Roger MD, R3) A/P Assessment and Plan 51 year old female with complicated past medical history who was found unresponsive and in respiratory failure, intubated in the ICU, extubated on 07/07 at 11 AM and currently stable. Discharge Planning Anticipate discharge to SNF in 1-2 days. jb Valadez (Alcira Roger MD, R3) Attending Attestation Patient seen and examined. Case reviewed and discussed with the resident team. Agree with plan of care as discussed with me and documented in the resident note. she may be more fragile mentally after her prior brain injuries. she will likely benefit from a change in scenery and more sleep (Susan Valadez MD) Problem List: (1) Altered mental status ICD Codes: R41.82 - Altered mental status, unspecified Status: Resolved Plan: Found unresponsive with GCS of 3, improved somewhat with administration of Narcan. Concern was for Baclofen and/or hydrocodone overdose, bag of medications found next to her. CT head negative for acute process. Toxicology screen positive for opiates only. Now with disorientation, may be secondary to resumption of PO meds after extubation. - EEG significant for pseudo periodic frontal discharges with background mild to moderate encephalopathy Neuro consulted: appreciate recommendations- continue current dilantin dose, okay to transfer to 5th floor [facility] with Tele * IV fosphenytoin trial (2) Hypertension ICD Codes: I10 - Essential (primary) hypertension Status: Chronic Plan: BP's significantly elevated, ranging 160-200/70-90's - Amlodipine 10 mg PO daily - Metoprolol 100 mg PO bid - Lisinopril to 40mg daily - HCTZ 25mg daily - Spironolactone 25mg PO daily, continue to monitor electrolytes - Labetolol 10 mg IV q4hrs >160/90 - Hydralazine 20 mg IV q4hrs PRN for >160/90. (3) COPD (chronic obstructive pulmonary disease) ICD Codes: J44.9 - Chronic obstructive pulmonary disease, unspecified Status: Chronic Plan: Respiratory status improving, now breathing comfortably on room air Admitted with low GCS of 3 that improved to 10 but required intubation. Extubated on 07/07/17. Sputum culture growing heavy normal respiratory kaela Blood cultures negative x4 days Legionella/strep pneumo urinary antigens negative 07/08 CXR shows slight improvement in basilar airspace disease Medications: * Linezolid, Zosyn, and Doxycycline 07/07-07/10, Will transition to IV Rocephin and PO Doxycycline today. * Duonebs scheduled and PRN * Symbicort 160-4.5 inhaled 1 buff bid * Prednisone 40mg daily (4) DM (diabetes mellitus) ICD Codes: E11.9 - Type 2 diabetes mellitus without complications Status: Chronic Plan: BG elevated around 85-174. A1C 13.3. -Levemir 20 units BID and SSI. 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 Many medications discontinued including BuSpar, Zanaflex, Nortriptyline, Paxil and Baclofen (6) Nutrition, metabolism, and development symptoms ICD Codes: R63.8 - Other symptoms and signs concerning food and fluid intake Status: Acute Plan: Diet: Pureed, diabetic diet Fluids: NS at 125 mls/hr until good oral intake Electrolytes: ICU electrolyte protocol, monitor electrolytes and replace as needed DVT PPX: on Xarelto GI PPX: Will DC Pepcid 10mg IV Q12H and start Protonix 40mg PO daily (Alcira Roger MD, R3) Problem Qualifiers (1) Altered mental status: Qualified Codes: R41.0 - Disorientation, unspecified (2) Hypertension: Qualified Codes: I10 - Essential (primary) hypertension (3) COPD (chronic obstructive pulmonary disease): Qualified Codes: J43.8 - Other emphysema (4) DM (diabetes mellitus): Qualified Codes: E11.65 - Type 2 diabetes mellitus with hyperglycemia; 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
[2017-07-10] MEDS ORDERED: AZITHROMYCIN 250 MG TAB PO SCH (09:45)
[2017-07-10] MEDS ORDERED: POTASSIUM CHLORIDE 20 MEQ CONTROLLED RELEASE TAB PO ONE (09:45)
[2017-07-10] MEDS: cefTRIAXone INJ 1,000 MG in SODIUM CHLORIDE 0.9% INJ 100 ML IV SCH (10:00)
[2017-07-10] MEDS: SODIUM CHLOR 0.9% 1000 ML INJ 1,000 ML IV SCH (10:47)
[2017-07-10] MEDS: MONTELUKAST SODIUM 10 MG TAB PO SCH (20:17)
[2017-07-10] MEDS: hydrALAZINE HCL 20 MG/ML VIAL IV PUSH PRN (20:17)
[2017-07-10] MEDS: PRAVASTATIN SOD 20 MG TAB PO SCH (20:19)
[2017-07-10] MEDS: DOXYCYCLINE HYCLATE 100 MG TAB PO SCH (21:27)
[2017-07-10] MEDS: ONDANSETRON HCL 4 MG/2 ML VIAL IV PUSH PRN (21:38)
[2017-07-10 23:41] LABS: AUTOMATED NEUTROPHIL # 4.5 TH/MM3 (1.8-7.7); BASOPHIL # 0.1 TH/MM3 (0-0.2); BASOPHIL % 0.7 % (0.0-2.0); EOSINOPHIL % 0.3 % (0.0-4.0); HEMATOCRIT 36.5 % (35.0-46.0); LYMPH % 48.6 % (9.0-44.0); LYMPHOCYTE # 5.5 TH/MM3 (1.0-4.8); MEAN CELL VOLUME 82.7 FL (80.0-100.0); MEAN CORPUSCULAR HEMOGLOBIN 26.5 PG (27.0-34.0); MONO % 10.5 % (0.0-8.0); NEUT % 39.9 % (16.0-70.0); PLATELET COUNT 346 TH/MM3 (150-450); RED BLOOD COUNT 4.41 MIL/MM3 (4.00-5.30); RED CELL DISTRIBUTION WIDTH 14.9 % (11.6-17.2); WHITE BLOOD COUNT 11.2 TH/MM3 (4.0-11.0)
[2017-07-10 23:43] LABS: HEMO FLAGS AUTO DIFF
[2017-07-10] MEDS: PROCHLORPERAZINE INJ 10 MG/2 ML VIAL IM PRN (23:59)
[2017-07-11] VITALS (10 sets, daily range): BP systolic 160–200; BP diastolic 84–98; PULSE 82–96; RESP 16–20; TEMP 97.7–99.9; O2SAT 92–98
[2017-07-11 00:04] LABS: ALT (GPT) 18 U/L (10-53); ANION GAP 9 MEQ/L (5-15); AST (GOT) 25 U/L (15-37); BICARBONATE 25.3 MEQ/L (21.0-32.0); BLOOD UREA NITROGEN 13 MG/DL (7-18); CHLORIDE 101 MEQ/L (98-107); GLOMERULAR FILTRATION RATE 84 ML/MIN (>89); POTASSIUM 3.2 MEQ/L (3.5-5.1); SODIUM (NA) 135 MEQ/L (136-145)
[2017-07-11 00:07] LABS: ALKALINE PHOSPHATASE 109 U/L (45-117); TOTAL BILIRUBIN ADULT 0.3 MG/DL (0.2-1.0)
[2017-07-11 00:29] LABS: PLATELET ESTIMATE SMEAR NORMAL (NORMAL); PLATELET MORPHOLOGY NORMAL (NORMAL); SCAN/DIFF AUTO DIFF CONFIRMED
[2017-07-11] MEDS ORDERED: POTASSIUM CHLORIDE 10 MEQ CONTROLLED RELEASE TAB PO ONE (00:45)
[2017-07-11] MEDS: CHLORHEXIDINE GLUCONATE 2 % 1 PACK (2 CLOTHS) TOP SCH (04:00)
[2017-07-11] MEDS: cloNIDine HCL 0.2 MG TAB PO PRN ×2 (05:00→17:19)
[2017-07-11] MEDS: ONDANSETRON HCL 4 MG/2 ML VIAL IV PUSH PRN ×3 (06:38→16:17)
--- NOTE | 2017-07-11 07:13 | HHI.FPPN ---
Subjective Remarks Patient states that she had several episodes of emesis overnight. She thinks that she ate something bad that caused her to have nausea and vomiting. She is concerned that her blood pressures remained elevated. BP's are ranging 170-200s /80-90s. She continues to have headache without associated visual changes. She describes generalized discomfort and a feeling of being unwell. She knows that she is at [facility], but believe she was brought here last night. Vitals are otherwise stable and patient remains afebrile. She continues to breathe comfortably on room air, saturating 97-98% on RA. She has her shoes on and her bookbag packed next to her, and when asked if she is leaving, she states "no, I just got here last night." (Alcira Roger MD, R3) Objective Vitals Vital Signs Date Time Temp Pulse Resp B/P (MAP) Pulse Ox O2 Delivery O2 Flow Rate FiO2 07/11/17 04:00 99.9 90 18 200/98 (132) 98 07/11/17 00:00 98.4 82 18 178/84 (115) 97 07/10/17 20:25 Room Air 07/10/17 20:00 97.3 92 18 188/89 (122) 98 07/10/17 18:00 95 07/10/17 16:00 98.5 85 25 188/88 (121) 97 07/10/17 16:00 85 07/10/17 14:00 92 07/10/17 12:00 87 07/10/17 12:00 99.0 87 27 171/78 (109) 98 07/10/17 10:00 85 07/10/17 09:24 20 07/10/17 08:00 98.0 85 26 176/79 (111) 100 07/10/17 08:00 85 07/10/17 07:12 100 21 07/10/17 07:00 100 Room Air I/O 07/10/17 07/10/17 07/10/17 07/11/17 07/11/17 07/11/17 07:00 15:00 23:00 07:00 15:00 23:00 Intake Total 761 ml 504 ml 2327 ml 480 ml Balance 761 ml 504 ml 2327 ml 480 ml Intake Oral 1500 ml 480 ml IV Total 761 ml 504 ml 827 ml # Voids 5 6 3 # Bowel Movements 1 0 (Alcira Roger MD, R3) Result Diagram: 07/10/17 2240 07/10/17 2240 Imaging Last Impressions Chest X-Ray 07/08/17 0600 Signed Impressions: Service Date/Time: Saturday, July 08, 2017 03:38 - CONCLUSION: 1. Slight improvement in basilar airspace disease since July 07. Interval extubation. Robert Elliott MD Head CT 07/05/17 0054 Signed Impressions: Service Date/Time: Wednesday, July 05, 2017 02:26 - CONCLUSION: 1. No acute intracranial abnormality. Benito Chu MD Objective Remarks GEN: Well-developed, well-nourished obese female patient sitting on the side of the bed with her shoes on a bookbag packed next to her. CV: Regular rate but with regular rhythm without obvious murmurs, gallops, rubs. LUNGS: Clear to auscultation bilaterally. Normal respiratory effort. No wheezes , rales, rhonchi. Breathing room air. GI: Soft, nontender, nondistended. No palpable masses. EXT: No edema. No calf tenderness. 2+ pedal pulses bilaterally NEURO/PSYCH: Awake, alert. Oriented to person, place, and time. Normal speech (Alcira Roger MD, R3) A/P Assessment and Plan 51 year old female with complicated past medical history who was found unresponsive and in respiratory failure, intubated in the ICU, extubated on 07/07 at 11 AM and currently stable. Now with hypertensive urgency. Discharge Planning Anticipate discharge to SNF in 1-2 days. bj Valadez (Alcira Roger MD, R3) Attending Attestation Patient seen and examined. Case reviewed and discussed with the resident team. Agree with plan of care as discussed with me and documented in the resident note. still with some confusion. improving over time. her is good about caring for her at home and has a wheelchair, etc. he may wish her to go home with him and assumes responsibility for her care vs a need for a SNF (Susan Valadez MD) Problem List: (1) Hypertensive urgency ICD Codes: I16.0 - Hypertensive urgency Status: Acute Plan: BP's significantly elevated, ranging 180-200/80-90's - Amlodipine 10 mg PO daily - Metoprolol 100 mg PO bid - Lisinopril to 40mg daily - HCTZ 25mg daily - Spironolactone 25mg PO daily, continue to monitor electrolytes - Clonidine 0.2mg Q8H PRN BP>180/100 - Hydralazine 20 mg IV q4hrs PRN for >160/90. (2) Altered mental status ICD Codes: R41.82 - Altered mental status, unspecified Status: Resolved Plan: Found unresponsive with GCS of 3, improved somewhat with administration of Narcan. Concern was for Baclofen and/or hydrocodone overdose, bag of medications found next to her. CT head negative for acute process. Toxicology screen positive for opiates only. Disorientation has improved overnight. Patient now oriented x 3. - EEG significant for pseudo periodic frontal discharges with background mild to moderate encephalopathy Neuro consulted: appreciate recommendations- continue current Dilantin dose- currently on IV fosphenytoin (3) COPD (chronic obstructive pulmonary disease) ICD Codes: J44.9 - Chronic obstructive pulmonary disease, unspecified Status: Chronic Plan: Respiratory status improving, now breathing comfortably on room air Admitted with low GCS of 3 that improved to 10 but required intubation. Extubated on 07/07/17. Sputum culture growing heavy normal respiratory kaela 07/05 Blood cultures negative Legionella/strep pneumo urinary antigens negative 07/08 CXR shows slight improvement in basilar airspace disease s/p Linezolid, Zosyn, and Doxycycline 07/07-07/10 Medications: * IV Rocephin 1g IV Q24H and PO Doxycycline 100mg Q12H (started 07/10) * Duonebs scheduled and PRN * Symbicort 160-4.5 inhaled 1 buff bid * DC Prednisone 40mg daily (4) DM (diabetes mellitus) ICD Codes: E11.9 - Type 2 diabetes mellitus without complications Status: Chronic Plan: BG elevated around 85-267. A1C 13.3. -Levemir 20 units BID and SSI. (5) Polypharmacy ICD Codes: Z79.899 - Other [facility] (current) drug therapy Status: Resolved Plan: Patient has a number of medications that are likely contributing to her health status. Many medications discontinued including BuSpar, Zanaflex, Nortriptyline, Paxil and Baclofen (6) Nutrition, metabolism, and development symptoms ICD Codes: R63.8 - Other symptoms and signs concerning food and fluid intake Status: Acute Plan: Diet: Pureed, diabetic diet Fluids: DC fluids now that PO intake is adequate Electrolytes: monitor electrolytes and replace as needed DVT PPX: on Xarelto GI PPX: Protonix 40mg PO daily (Alcira Roger MD, R3) Problem Qualifiers (1) Altered mental status: Qualified Codes: R41.0 - Disorientation, unspecified (2) COPD (chronic obstructive pulmonary disease): Qualified Codes: J43.8 - Other emphysema (3) DM (diabetes mellitus): Qualified Codes: E11.65 - Type 2 diabetes mellitus with hyperglycemia; 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
[2017-07-11] MEDS: CHLORHEXIDINE 0.12% (ORAL KIT) 15 ML CUP MT SCH ×2 (08:00→20:00)
[2017-07-11 08:43] LABS: MAGNESIUM 1.7 MG/DL (1.5-2.5)
[2017-07-11] MEDS: SODIUM CHLORIDE 0.9% FLUSH 10 ML FLUSH SCH ×2 (09:00→20:43)
[2017-07-11 09:13] LABS: HEMATOCRIT 37.4 % (35.0-46.0); MEAN CELL VOLUME 83.1 FL (80.0-100.0); MEAN CORPUSCULAR HEMOGLOBIN 26.4 PG (27.0-34.0); MEAN CORPUSCULAR HGB CONC 31.8 % (32.0-36.0); PLATELET COUNT 352 TH/MM3 (150-450); RED CELL DISTRIBUTION WIDTH 14.9 % (11.6-17.2); REVIEW FLAG FINAL; WHITE BLOOD COUNT 9.3 TH/MM3 (4.0-11.0)
[2017-07-11] MEDS: SPIRONOLACTONE 25 MG TAB PO SCH (09:26)
[2017-07-11] MEDS: PREGABALIN 75 MG CAP PO SCH (09:26)
[2017-07-11] MEDS: DOCUSATE SODIUM 50 MG/SENNA 8.6 MG TAB PO SCH ×2 (09:28→20:43)
[2017-07-11] MEDS: LISINOPRIL 20 MG TAB PO SCH (09:28)
[2017-07-11] MEDS: METOPROLOL TARTRATE 100 MG TAB PO SCH ×2 (09:28→20:42)
[2017-07-11] MEDS: PANTOPRAZOLE SOD 40 MG DELAYED RELEASE TAB PO SCH (09:28)
[2017-07-11] MEDS: RIVAROXABAN 20 MG TAB PO SCH (09:28)
[2017-07-11] MEDS: HYDROCHLOROTHIAZIDE 25 MG TAB PO SCH (09:28)
[2017-07-11] MEDS: ASPIRIN EC 81 MG TABEC PO SCH (09:29)
[2017-07-11] MEDS: INSULIN DETEMIR 100 UNITS/ML VIAL SQ SCH ×2 (09:29→20:49)
[2017-07-11] MEDS: INSULIN ASPART SUPPLEMENTAL SCALE SQ SCH ×4 (09:30→20:49)
[2017-07-11] MEDS: cefTRIAXone INJ 1,000 MG in SODIUM CHLORIDE 0.9% INJ 100 ML IV SCH (09:32)
[2017-07-11 10:04] LABS: BICARBONATE 26.6 MEQ/L (21.0-32.0); POTASSIUM 3.4 MEQ/L (3.5-5.1)
[2017-07-11] MEDS: BUDESONIDE-FORMOTEROL 160/4.5 MCG INHALER INH SCH ×2 (10:58→20:44)
[2017-07-11] MEDS: DOXYCYCLINE HYCLATE 100 MG TAB PO SCH ×2 (10:58→20:42)
[2017-07-11] MEDS: ARIPiprazole 15 MG TAB PO SCH (10:58)
[2017-07-11] MEDS: FOSPHENYTOIN INJ 200 MGPE in SODIUM CHLORIDE 0.9% INJ 50 ML IV SCH (10:58)
[2017-07-11] MEDS ORDERED: POTASSIUM CHLORIDE 20 MEQ CONTROLLED RELEASE TAB PO ONE (14:45)
[2017-07-11] MEDS: PRAVASTATIN SOD 20 MG TAB PO SCH (20:42)
[2017-07-11] MEDS: PHENYTOIN SODIUM 100 MG CAP PO SCH (20:43)
[2017-07-11] MEDS: PROCHLORPERAZINE INJ 10 MG/2 ML VIAL IM PRN (20:43)
[2017-07-11] MEDS: MONTELUKAST SODIUM 10 MG TAB PO SCH (20:43)
[2017-07-12] VITALS: BP 191/89; PULSE 84; RESP 18; TEMP 98.9; O2SAT 93
[2017-07-12] MEDS: cloNIDine HCL 0.2 MG TAB PO PRN (00:27)
[2017-07-12] MEDS: CHLORHEXIDINE GLUCONATE 2 % 1 PACK (2 CLOTHS) TOP SCH (04:00)
[2017-07-12 04:18] VITALS: BP 162/81; PULSE 84; RESP 18; TEMP 98.4; O2SAT 94
[2017-07-12 08:00] VITALS: BP 166/87; PULSE 82; RESP 18; TEMP 98.3; O2SAT 100
[2017-07-12] MEDS: INSULIN ASPART SUPPLEMENTAL SCALE SQ SCH (08:00)
[2017-07-12 08:26] VITALS: PULSE 79
[2017-07-12] MEDS: DOCUSATE SODIUM 50 MG/SENNA 8.6 MG TAB PO SCH (09:00)
[2017-07-12] MEDS: DOXYCYCLINE HYCLATE 100 MG TAB PO SCH (09:43)
[2017-07-12] MEDS: LISINOPRIL 20 MG TAB PO SCH (09:44)
[2017-07-12] MEDS: PHENYTOIN SODIUM 100 MG CAP PO SCH (09:44)
[2017-07-12] MEDS: SPIRONOLACTONE 25 MG TAB PO SCH (09:44)
[2017-07-12] MEDS: RIVAROXABAN 20 MG TAB PO SCH (09:44)
[2017-07-12] MEDS: PREGABALIN 75 MG CAP PO SCH (09:44)
[2017-07-12] MEDS: METOPROLOL TARTRATE 100 MG TAB PO SCH (09:44)
[2017-07-12] MEDS: PANTOPRAZOLE SOD 40 MG DELAYED RELEASE TAB PO SCH (09:44)
[2017-07-12] MEDS: INSULIN DETEMIR 100 UNITS/ML VIAL SQ SCH (09:45)
[2017-07-12] MEDS: ONDANSETRON HCL 4 MG/2 ML VIAL IV PUSH PRN (09:45)
[2017-07-12] MEDS: HYDROCHLOROTHIAZIDE 25 MG TAB PO SCH (09:45)
[2017-07-12] MEDS: ARIPiprazole 15 MG TAB PO SCH (09:45)
[2017-07-12] MEDS: cefTRIAXone INJ 1,000 MG in SODIUM CHLORIDE 0.9% INJ 100 ML IV SCH (09:46)
[2017-07-12] MEDS: SODIUM CHLORIDE 0.9% FLUSH 10 ML FLUSH SCH (09:46)
[2017-07-12] MEDS: BUDESONIDE-FORMOTEROL 160/4.5 MCG INHALER INH SCH (09:46)
--- NOTE | 2017-07-12 10:14 | RADRPT ---
EXAM DATE/TIME: 07/12/2017 08:04 [place] COMPARISON: No previous studies available for comparison. INDICATIONS : Renal artery hypertension. MEDICAL HISTORY : Myocardial infarction. Hypercholesterolemia. Hypertension. Congestive heart failure. CAD. COPD. Ulcer . GERD. Sleep apnea. Arthritis. Osteoporosis. Sickle cell disease. Diabetes. MRSA. SURGICAL HISTORY : Coronary artery stent. Hysterectomy. section. Cardiac cath. Cervical fusion. ENCOUNTER: Initial ACUITY: 1 day PAIN SCORE: 2/10 LOCATION: Bilateral flank PEAK FLOW VELOCITIES (cm/sec): AORTA: PROXIMAL: 103 cm/s MID: 108 cm/s DISTAL: 83 cm/s RIGHT RENAL ARTERY: PROXIMAL: 134 cm/s MID: 88 cm/s DISTAL: 126 cm/s RENAL ARTERY RATIO: 1.3 ARCUATE ARTERY RESISTIVE INDEX: Upper: 0.7 Mid: 0.7 Lower: 0.7 LEFT RENAL ARTERY: PROXIMAL: 108 cm/s MID: 108 cm/s DISTAL: 117 cm/s RENAL ARTERY RATIO: 1.1 ARCUATE ARTERY RESISTIVE INDEX: Upper: 0.7 Mid: 0.7 Lower: 0.8 FINDINGS: Normal sized kidneys without evidence for renal artery stenosis. Renal artery and vein mapping as listed above. CONCLUSION: Negative for stenosis. It is well preserved. The patient has elevated renins either CT angiography or MR angiography may be of benefit. Dexter Roque MD FACR on July 12, 2017 at 10:11 Board Certified Radiologist. This report was verified electronically.
[2017-07-12 10:50] LABS: HEMATOCRIT 36.2 % (35.0-46.0); MEAN CELL VOLUME 82.9 FL (80.0-100.0); MEAN CORPUSCULAR HEMOGLOBIN 27.2 PG (27.0-34.0); MEAN CORPUSCULAR HGB CONC 32.8 % (32.0-36.0); PLATELET COUNT 326 TH/MM3 (150-450); RED BLOOD COUNT 4.37 MIL/MM3 (4.00-5.30); RED CELL DISTRIBUTION WIDTH 14.7 % (11.6-17.2); REVIEW FLAG FINAL; WHITE BLOOD COUNT 11.5 TH/MM3 (4.0-11.0)
[2017-07-12 11:02] LABS: BICARBONATE 30.7 MEQ/L (21.0-32.0); POTASSIUM 3.5 MEQ/L (3.5-5.1)
--- NOTE | 2017-07-12 11:02 | HHI.FPPN ---
Subjective Remarks No acute issues overnight. Vitals are stable, patient remains afebrile. Blood pressures are ranging 160-190/80s. She states that she feels nauseated this morning but denies any chest pain, fever, chills, nausea or vomiting. She continues to have a headache. She has not had any seizure activity. She is breathing room air without difficulty. She is tolerating by mouth. (Alcira Roger MD, R3) Objective Vitals Vital Signs Date Time Temp Pulse Resp B/P (MAP) Pulse Ox O2 Delivery O2 Flow Rate FiO2 07/12/17 08:00 98.3 82 18 166/87 (113) 100 07/12/17 04:18 98.4 84 18 162/81 (108) 94 07/12/17 00:00 98.9 84 18 191/89 (123) 93 07/11/17 20:58 98 07/11/17 20:56 Room Air 07/11/17 20:17 98.6 84 16 160/86 (110) 95 07/11/17 20:00 83 07/11/17 16:00 97.9 89 20 188/88 (121) 96 07/11/17 12:00 97.7 94 20 195/95 (128) 93 I/O 07/11/17 07/11/17 07/11/17 07/12/17 07/12/17 07/12/17 07:00 15:00 23:00 07:00 15:00 23:00 Intake Total 480 ml 154 ml 0 ml Balance 480 ml 154 ml 0 ml Intake Oral 480 ml 0 ml IV Total 154 ml # Voids 3 4 # Bowel Movements 0 0 (Alcira Roger MD, R3) Result Diagram: 07/12/17 0900 07/11/17 0643 Imaging Last Impressions Chest X-Ray 07/08/17 06 Signed Impressions: Service Date/Time: Saturday, July 08, 2017 03:38 - CONCLUSION: 1. Slight improvement in basilar airspace disease since July 07. Interval extubation. Robert Elliott MD Head CT 07/05/17 0054 Signed Impressions: Service Date/Time: Wednesday, July 05, 2017 02:26 - CONCLUSION: 1. No acute intracranial abnormality. Benito Chu MD Objective Remarks GEN: Well-developed, well-nourished obese female patient sitting comfortably in bed. CV: Regular rate but with regular rhythm without obvious murmurs, gallops, rubs. LUNGS: Clear to auscultation bilaterally. Normal respiratory effort. No wheezes , rales, rhonchi. Breathing room air. GI: Soft, nontender, nondistended. No palpable masses. EXT: No edema. No calf tenderness. 2+ pedal pulses bilaterally NEURO/PSYCH: Awake, alert. Oriented to person, place, and time. Normal speech (Alcira Roger MD, R3) A/P Assessment and Plan 51 year old female with complicated past medical history who was found unresponsive and in respiratory failure, intubated in the ICU, extubated on 07/07 at 11 AM and currently stable. Now with hypertensive urgency. Discharge Planning Anticipate discharge home with c/SNF in 1-2 days. bj Valadez (Alcira Roger MD, R3) Attending Attestation Patient seen and examined. Case reviewed and discussed with the resident team. Agree with plan of care as discussed with me and documented in the resident note. she is doing very well. 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 If the patient has elevated renins, may have benefit to obtain CTA or MRA. -Further evaluation with urine metanephrines, creatinine, renin, and microalbumin/creatinine ratio pending - Amlodipine 10 mg PO daily - Metoprolol 100 mg PO bid - Lisinopril to 40mg daily - HCTZ 25mg daily - Spironolactone 25mg PO daily, continue to monitor electrolytes - Clonidine 0.2mg Q8H PRN BP>180/100 - Hydralazine 20 mg IV q4hrs PRN for >160/90. (2) Altered mental status ICD Codes: R41.82 - Altered mental status, unspecified Status: Resolved Plan: Found unresponsive with GCS of 3, improved somewhat with administration of Narcan. Concern was for Baclofen and/or hydrocodone overdose, bag of medications found next to her. CT head negative for acute process. Toxicology screen positive for opiates only. Disorientation has improved overnight. Patient now oriented x 3. - EEG significant for pseudo periodic frontal discharges with background mild to moderate encephalopathy Neuro consulted: appreciate recommendations- continue Dilatin 200mg PO BID (3) COPD (chronic obstructive pulmonary disease) ICD Codes: J44.9 - Chronic obstructive pulmonary disease, unspecified Status: Chronic Plan: Respiratory status improving, now breathing comfortably on room air Admitted with low GCS of 3 that improved to 10 but required intubation. Extubated on 07/07/17. Sputum culture growing heavy normal respiratory kaela 07/05 Blood cultures negative Legionella/strep pneumo urinary antigens negative 07/08 CXR shows slight improvement in basilar airspace disease s/p Linezolid, Zosyn, and Doxycycline 07/07-07/10 Medications: * IV Rocephin 1g IV Q24H and PO Doxycycline 100mg Q12H (started 07/10) * Duonebs scheduled and PRN * Symbicort 160-4.5 inhaled 1 buff bid * DC Prednisone 40mg daily (4) DM (diabetes mellitus) ICD Codes: E11.9 - Type 2 diabetes mellitus without complications Status: Chronic Plan: BG elevated around 102-225. A1C 13.3. -Levemir 20 units BID and SSI. 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 Many medications discontinued including BuSpar, Zanaflex, Nortriptyline, Paxil and Baclofen (6) Nutrition, metabolism, and development symptoms ICD Codes: R63.8 - Other symptoms and signs concerning food and fluid intake Status: Acute Plan: Diet: Pureed, diabetic diet Fluids: None, tolerating PO Electrolytes: monitor electrolytes and replace as needed DVT PPX: on Xarelto GI PPX: Protonix 40mg PO daily (Alcira Roger MD, R3) Problem Qualifiers (1) Altered mental status: Qualified Codes: R41.0 - Disorientation, unspecified (2) COPD (chronic obstructive pulmonary disease): Qualified Codes: J43.8 - Other emphysema (3) DM (diabetes mellitus): Qualified Codes: E11.65 - Type 2 diabetes mellitus with hyperglycemia; 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
[2017-07-12 12:00] VITALS: BP 164/78; PULSE 83; RESP 20; TEMP 98.4; O2SAT 93
[2017-07-12] MEDS ORDERED: LISI-515 PO (12:26)
[2017-07-12] MEDS ORDERED: DOXY100T PO (12:26)
[2017-07-12] MEDS ORDERED: LYRI75CA PO (12:26)
[2017-07-12] MEDS ORDERED: HYDR25TA5 PO (12:26)
[2017-07-12] MEDS ORDERED: DILA100C PO (12:26)
[2017-07-12] MEDS ORDERED: SPIR25 PO (12:26)
--- NOTE | 2017-07-12 12:27 | HHI.DCPOC ---
Discharge Care Plan Diagnosis: (1) Hypertensive urgency (2) Uncontrolled diabetes mellitus (3) Acute encephalopathy Goals to Promote Your Health * To prevent worsening of your condition and complications * To maintain your health at the optimal level Directions to Meet Your Goals Take your medications as prescribed Follow your dietary instruction Follow activity as directed Keep your appointments as scheduled Take your immunizations and boosters as scheduled If your symptoms worsen call your PCP, if no PCP go to Urgent Care Center or Emergency Room Smoking is Dangerous to Your Health. Avoid second hand smoke Call the 24-hour hour crisis hotline for domestic abuse at Alcira Roger MD, R3 Jul 12, 2017 12:27
--- NOTE | 2017-07-12 12:29 | HHI.FF ---
Face to Face Verification Diagnosis: (1) Acute encephalopathy (2) Hypertensive urgency (3) History of CVA (cerebrovascular accident) Home Health Nursing Order: Medical education Signs/symptoms of disease process Diabetic education Medication education-adverse effect I have seen patient Ashanti Stern on 07/12/17. My clinical findings support the need for the requested home health care services because: Ltd mobility - disease progression Deconditioned w/ increased weakness Med compliance is questionable Limited ability to care for self Need for psychosocial assistance Impaired cognition/judgement High risk of falls I certify that my clinical findings support that this patient is homebound because: Impaired cognitive ability/safety Unsteady gait/balance Unsafe to leave home unassisted Need for psychosocial assistance Alcira Roger MD, R3 Jul 12, 2017 12:29
--- NOTE | 2017-07-12 13:51 | HHI.DS ---
Discharge Summary Admission Date Jul 05, 2017 at 02:01 Discharge Date: Jul 12, 2017 Admitting Diagnosis unresponsive, respiratory failure (1) Hypertensive urgency Plan: BP's improving elevated, ranging 160-190/80's Renal ultrasound is negative for renal artery stenosis. If the patient has elevated renins, may have benefit to obtain CTA or MRA. -Further evaluation with urine metanephrines, creatinine, renin, and microalbumin/creatinine ratio pending - Amlodipine 10 mg PO daily - Metoprolol 100 mg PO bid - Lisinopril to 40mg daily - HCTZ 25mg daily - Spironolactone 25mg PO daily, continue to monitor electrolytes - Clonidine 0.2mg Q8H PRN BP>180/100 - Hydralazine 20 mg IV q4hrs PRN for >160/90. ICD Codes: I16.0 - Hypertensive urgency Status: Acute (2) Altered mental status Diagnosis: Principal Plan: Found unresponsive with GCS of 3, improved somewhat with administration of Narcan. Concern was for Baclofen and/or hydrocodone overdose, bag of medications found next to her. CT head negative for acute process. Toxicology screen positive for opiates only. Disorientation has improved overnight. Patient now oriented x 3. - EEG significant for pseudo periodic frontal discharges with background mild to moderate encephalopathy Neuro consulted: appreciate recommendations- continue Dilatin 200mg PO BID ICD Codes: R41.82 - Altered mental status, unspecified Status: Resolved (3) COPD (chronic obstructive pulmonary disease) Plan: Respiratory status improving, now breathing comfortably on room air Admitted with low GCS of 3 that improved to 10 but required intubation. Extubated on 07/07/17. Sputum culture growing heavy normal respiratory kaela 07/05 Blood cultures negative Legionella/strep pneumo urinary antigens negative 07/08 CXR shows slight improvement in basilar airspace disease s/p Linezolid, Zosyn, and Doxycycline 07/07-07/10 Medications: * IV Rocephin 1g IV Q24H and PO Doxycycline 100mg Q12H (started 07/10) * Duonebs scheduled and PRN * Symbicort 160-4.5 inhaled 1 buff bid * DC Prednisone 40mg daily ICD Codes: J44.9 - Chronic obstructive pulmonary disease, unspecified Status: Chronic (4) DM (diabetes mellitus) Plan: BG elevated around 102-225. A1C 13.3. -Levemir 20 units BID and SSI. ICD Codes: E11.9 - Type 2 diabetes mellitus without complications Status: Chronic (5) Polypharmacy Plan: Patient has a number of medications that likely contributed to her AMS. Many medications discontinued including BuSpar, Zanaflex, Nortriptyline, Paxil and Baclofen ICD Codes: Z79.899 - Other long-term (current) drug therapy Status: Resolved (6) Nutrition, metabolism, and development symptoms Plan: Diet: Pureed, diabetic diet Fluids: None, tolerating PO Electrolytes: monitor electrolytes and replace as needed DVT PPX: on Xarelto GI PPX: Protonix 40mg PO daily ICD Codes: R63.8 - Other symptoms and signs concerning food and fluid intake Status: Acute Consultants Critical care, Neurology Brief History 51 year old female with a history of diabetes, seizure disorder, multiple CVA's , sickle cell trait, depression, anxiety, was brought by EMS after being found unresponsive by her . Her GCS at the time of EMS arrival was 3. She received 2.4 mg of Narcan and GCS improved to a 10. Respirations were shallow and patient was placed on a non-rebreather mask and brought to the hospital. Upon arrival to the hospital her GCS was 10 and vital signs were otherwise stable. She was nonverbal at the time. There was a bag full of medications that were both her and her 's. Included in the medications were baclofen and hydrocodone. She was intubated to protect her airway. (history to this point pulled from prior notes). I visited the patient in the ICU. She was extubated at 11 AM and has stable respiratory status. She is awake and alert. She has mild confusion but is answering some of my questions. She knows her name, the year, and where she is. She does not know her birthday or the month. She has no recollection at all about what brought her in. She is not able to tell me what her medical problems are other than heart disease. She is currently weaned of sedation. Since being here she has had some issues with hyperglycemia and is currently on high dose sliding scale insulin and Levemir as well. She has also had difficulty with her blood pressures, and he BP currently is 196/81. CT head was negative for acute hemorrhage. Otherwise she is not reporting any pain except some diffuse mild crampy abdominal pain. She has some coughing and congestion. No chest pain or shortness of breath currently. No calf tenderness. Her is unfortunately not in the room currently for more details on the history. She is a patient of Dr. Jason in the [facility]. Of note, she had a hospital admission on 03/14/17 for acute respiratory distress that resulted in intubation and a short stay in the ICU. CBC/BMP: 07/12/17 0900 07/12/17 0900 Significant Findings Laboratory Tests Test 07/09/17 13:54 07/09/17 19:34 07/10/17 22:40 07/11/17 06:43 Potassium Level 2.9 MEQ/L (3.5-5.1) 3.2 MEQ/L (3.5-5.1) 3.4 MEQ/L (3.5-5.1) White Blood Count 11.2 TH/MM3 (4.0-11.0) Mean Corpuscular Hemoglobin 26.5 PG (27.0-34.0) 26.4 PG (27.0-34.0) Lymphocytes (%) (Auto) 48.6 % (9.0-44.0) Monocytes (%) (Auto) 10.5 % (0.0-8.0) Lymphocytes # (Auto) 5.5 TH/MM3 (1.0-4.8) Monocytes # (Auto) 1.2 TH/MM3 (0-0.9) Random Glucose 116 MG/DL (74-106) 221 MG/DL (74-106) Albumin 2.7 GM/DL (3.4-5.0) Sodium Level 135 MEQ/L (136-145) 134 MEQ/L (136-145) Estimat Glomerular Filtration Rate 84 ML/MIN (>89) 77 ML/MIN (>89) Phenytoin (Dilantin) Level 7.3 MCG/ML (10.0-20.0) 4.9 MCG/ML (10.0-20.0) Mean Corpuscular Hemoglobin Concent 31.8 % (32.0-36.0) Chloride Level 97 MEQ/L (98-107) Test 07/12/17 09:00 White Blood Count 11.5 TH/MM3 (4.0-11.0) Phenytoin (Dilantin) Level 3.0 MCG/ML (10.0-20.0) Imaging Last Impressions Renal Ultrasound 07/12/17 0000 Signed Impressions: Service Date/Time: Wednesday, July 12, 2017 08:04 - CONCLUSION: Negative for stenosis. It is well preserved. The patient has elevated renins either CT angiography or MR angiography may be of benefit. Dexter Roque MD FACR Chest X-Ray 07/08/17 0600 Signed Impressions: Service Date/Time: Saturday, July 08, 2017 03:38 - CONCLUSION: 1. Slight improvement in basilar airspace disease since July 07. Interval extubation. Robert Elliott MD Head CT 07/05/17 0054 Signed Impressions: Service Date/Time: Wednesday, July 05, 2017 02:26 - CONCLUSION: 1. No acute intracranial abnormality. Benito Chu MD PE at Discharge GEN: Well-developed, well-nourished obese female patient sitting comfortably in bed. CV: Regular rate but with regular rhythm without obvious murmurs, gallops, rubs. LUNGS: Clear to auscultation bilaterally. Normal respiratory effort. No wheezes , rales, rhonchi. Breathing room air. GI: Soft, nontender, nondistended. No palpable masses. EXT: No edema. No calf tenderness. 2+ pedal pulses bilaterally NEURO/PSYCH: Awake, alert. Oriented to person, place, and time. Normal speech Hospital Course Patient is a 51-year-old female who was admitted after being found unresponsive with a bag full of medications nearby. She was intubated for airway protection in the ED and admitted to the critical care unit. She was extubated on 07/07. She was treated for a COPD exacerbation with prednisone, Symbicort, DuoNeb's. She was started on the Linezolid, Zosyn, and doxycycline to cover for possible aspiration pneumonia versus hospital-acquired pneumonia and was deescalated to IV Rocephin and PO doxycycline once blood cultures, sputum cultures, and legionella and pneumococcal urine antigens were found to be normal and she continued to make clinical improvement. An EEG was performed for altered mental status that showed pseudo-periodic frontal discharges occurring background mild to moderate encephalopathy. Neurology was consulted and started her fosphenytoin IV which was eventually transitioned to PO Dilantin. Patient was also found to be on multiple medications that could be contributing to her altered mental status. This polypharmacy was addressed by discontinuing many medications including BuSpar, Zanaflex, Nortriptyline, Paxil and Baclofen. During her hospitalization, she also was found to have hypertensive urgency. The pressures were eventually stabilized with amlodipine 10 mg by mouth daily, metoprolol 100 mg by mouth twice a day, lisinopril 40 mg daily, HCTZ 25 mg daily , and spironolactone 25 mg daily. A renal artery ultrasound was performed that did not show renal artery stenosis. Hypertension was further evaluated with urine metanephrines, creatinine, renin, and microalbumin/creatinine ratio, all which are pending. Physical therapy recommended that she be discharged to rehabilitation, however per the 's request, she will be discharged home with home health care and physical therapy. She will follow-up with neurology and her PCP in one week. Pt Condition on Discharge: Stable Discharge Disposition: Disch w/ Home Health Serv Discharge Instructions DIET: Follow Instructions for: Diabetic Diet Activities you can perform: Regular-No Restrictions Follow up Referrals: Neurology - 1 Week with Steve Clark MD PCP Follow-up - 1 Week with Juan Ramon Jason MD R2 New Orders: Physical Therapy - 1 Month New Medications: Doxycycline Hyclate (Doxycycline Hyclate) 100 Mg Tab 100 MG PO Q12HR, #6 TAB Hydrochlorothiazide (Hydrochlorothiazide) 25 Mg Tab 25 MG PO DAILY, #30 TAB Lisinopril (Lisinopril) 20 Mg Tab 40 MG PO DAILY, #60 TAB Phenytoin Extended (Dilantin) 100 Mg Cap 200 MG PO Q12HR, #60 CAP Pregabalin (Lyrica) 75 Mg Cap 75 MG PO DAILY, #30 CAP Spironolactone (Aldactone) 25 Mg Tab 25 MG PO DAILY, #30 TAB Continued Medications: Albuterol 8.5 GM Inh (Proair Hfa 8.5 GM Inh) 90 Mcg/Act Aer 2 PUFF INH Q4-6H PRN for SHORTNESS OF BREATH, #1 INHALER 2 Refills 108 mcg/actuation Albuterol Neb (Albuterol Neb) 2.5 Mg/3 Ml Neb 2.5 MG NEB Q4HR NEB PRN for SOB/WHEEZING, #60 NEBULE 0 Refills Amlodipine (Norvasc) 10 Mg Tab 10 MG PO DAILY for Blood Pressure Management, #30 TAB 0 Refills Aripiprazole (Abilify) 15 Mg Tab 15 MG PO DAILY, #60 TAB [address] (Aspirin 81) 81 Mg Tabdr 81 MG PO EVERY OTHER DAY, #60 TAB 2 Refills Fluticasone Nasal [place] (Fluticasone Nasal [place]) 50 Mcg/Act Naspr 50 MCG EACH NARE DAILY for Allergy Management, #1 BOTTLE 5 Refills 50 mcg/spray Fluticasone-Salmeterol Inh (Advair Diskus Inh) 250-50 Mcg/Blist Aer 1 PUFF INH BID, #1 INHALER 5 Refills Rinse mouth after use. Insulin Aspart Inj (Novolog Inj) 1,000 Unit/10 Ml Vial 0-25 UNITS SQ ACHS for Blood Sugar Management, #10 ML 3 Refills Max dose at bedtime:( )units; sugars less than 70,(0) units; sugars 150-199,(5) units; sugars 200-249,(10) units; sugars 250-299,(15) units; sugars 300-349,(20)units; sugars greater than 349,(25)units Insulin Detemir Inj (Levemir Inj) 1,000 unit/ 10 ML Vial 60 UNITS SQ BID for Blood Sugar Management, #4 VIAL 2 Refills Do not mix with any other Insulin. Ipratropium HFA 12.9 GM Inh (Atrovent HFA 12.9 GM Inh) 17 Mcg/Act Aer 2 PUFF INH QID, #1 INHALER 5 Refills Lidocaine Topical (Lidocaine Topical) 2 % Jel 1 APPLIC TOPICAL QID PRN for PAIN, #1 TUBE 0 Refills Lovastatin (Lovastatin) 20 Mg Tab 20 MG PO HS for Cholesterol Management, #90 TAB 1 Refill Metoprolol Tartrate (Metoprolol Tartrate) 100 Mg Tab 100 MG PO BID, #180 TAB 3 Refills Montelukast (Singulair) 10 Mg Tab 10 MG PO HS, #30 TAB 0 Refills Nicotine Patch (Nicotine Patch) 21 Mg/24 Hr Patch 21 MG T-DERMAL DAILY for Smoking Cessation, #30 PATCH 0 Refills Omeprazole (Omeprazole) 40 Mg Cap 40 MG PO DAILY, #90 CAP 1 Refill Ondansetron (Ondansetron) 8 Mg Tab 8 MG PO TID PRN for NAUSEA OR VOMITING, #42 TAB 0 Refills Rivaroxaban (Xarelto) 20 Mg Tab 20 MG PO DAILY for Blood Clot Prevention, TAB 0 Refills Triamcinolone Topical (Triamcinolone Topical) 0.1% Cream 1 APPLIC TOPICAL BID for Inflammation, #1 TUBE 0 Refills Discontinued Medications: Baclofen (Baclofen) 20 Mg Tab 20 MG PO QID for Muscle Spasm, TAB 0 Refills Buspirone (Buspirone) 5 Mg Tab 5 MG PO DAILY for Anxiety, #90 TAB 3 Refills Hydrocodone-Acetaminophen (Hydrocodone-Acetaminophen) 10-325 mg Tab 1 TAB PO Q4-6HR PRN for PAIN, #14 TAB 0 Refills Hydroxyzine Pamoate (Vistaril) 50 Mg Cap 1-2 CAP PO HS, #120 CAP 0 Refills Ibuprofen (Ibuprofen) 800 Mg Tab 800 MG PO TID for Pain, #21 TAB Ipratropium HFA 12.9 GM Inh (Atrovent HFA 12.9 GM Inh) 17 Mcg/Act Aer 2 PUFF INH Q6HR PRN for SHORTNESS OF BREATH, #1 INHALER 0 Refills Losartan (Losartan) 50 Mg Tab 50 MG PO DAILY for Blood Pressure Management, #90 TAB 0 Refills Nortriptyline (Nortriptyline) 50 Mg Cap 50 MG PO HS for Depression Control, #30 CAP 0 Refills Paroxetine (Paroxetine) 30 Mg Tab 30 MG PO DAILY, #90 TAB 3 Refills Pregabalin (Lyrica) 100 Mg Cap 100 MG PO TID, #90 CAP Ranitidine (Ranitidine) 150 Mg Tab 150 MG PO BID for Heartburn Management, #60 TAB 0 Refills Tizanidine (Tizanidine) 4 Mg Tab 4 MG PO QID for Muscle Spasm, TAB Varenicline (Chantix Continuing Month Juan) 1 Mg Juan 1 MG PO BIDPC for Smoking cessation, #1 PKT 0 Refills Zolpidem (Ambien) 5 Mg Tab 5 MG PO HS PRN for INSOMNIA, TAB 0 Refills Alcira Roger MD, R3 Jul 12, 2017 13:51
[2017-08-20] MEDS ORDERED: XARE20TA PO (06:32)
== END 2017-07-12 13:59 | disposition home health service (06) | DRG 917 ==
LOC: NEPE 00:38 → NEDA 02:01 → HIME 03:24 → N04B 07-10 19:20
PROVIDERS: ADMIT Internal Medicine Critical Care Medicine; ATTEND Internal Medicine Critical Care Medicine
PROC: 0BH17EZ Insertion of Endotracheal Airway into Trachea, Via Natural or Artificial Opening (ICD-10-PCS; principal; 2017-07-05)
PROC: 5A1945Z Respiratory Ventilation, 24-96 Consecutive Hours (ICD-10-PCS; 2017-07-05)
DX: T42.8X4A Poisoning by antiparkinsonism drugs and other central muscle-tone depressants, undetermined, initial encounter (principal); J96.00 Acute respiratory failure, unspecified whether with hypoxia or hypercapnia; J69.0 Pneumonitis due to inhalation of food and vomit; G93.40 Encephalopathy, unspecified; J18.9 Pneumonia, unspecified organism; N17.9 Acute kidney failure, unspecified; I11.0 Hypertensive heart disease with heart failure; J44.0 Chronic obstructive pulmonary disease with (acute) lower respiratory infection; I50.9 Heart failure, unspecified; E87.2 Acidosis; J44.1 Chronic obstructive pulmonary disease with (acute) exacerbation; I69.354 Hemiplegia and hemiparesis following cerebral infarction affecting left non-dominant side; F05 Delirium due to known physiological condition; K31.84 Gastroparesis; E11.43 Type 2 diabetes mellitus with diabetic autonomic (poly)neuropathy; F17.210 Nicotine dependence, cigarettes, uncomplicated; G47.30 Sleep apnea, unspecified; D57.3 Sickle-cell trait; T40.2X4A Poisoning by other opioids, undetermined, initial encounter; G89.29 Other chronic pain; M54.9 Dorsalgia, unspecified; K21.9 Gastro-esophageal reflux disease without esophagitis; I25.10 Atherosclerotic heart disease of native coronary artery without angina pectoris; F32.9 Major depressive disorder, single episode, unspecified; M19.90 Unspecified osteoarthritis, unspecified site; R40.2431 Glasgow coma scale score 3-8, in the field [EMT or ambulance]; F41.9 Anxiety disorder, unspecified; E11.65 Type 2 diabetes mellitus with hyperglycemia; E78.5 Hyperlipidemia, unspecified; E11.42 Type 2 diabetes mellitus with diabetic polyneuropathy; E87.6 Hypokalemia; G40.909 Epilepsy, unspecified, not intractable, without status epilepticus; I16.0 Hypertensive urgency; R00.0 Tachycardia, unspecified; Y95 Nosocomial condition; Z79.4 Long term (current) use of insulin; Z85.41 Personal history of malignant neoplasm of cervix uteri; Z86.711 Personal history of pulmonary embolism; Z95.5 Presence of coronary angioplasty implant and graft; I25.2 Old myocardial infarction
CPT/HCPCS: 31500; 36600; 43753; 51702; 70450; 71010; 76937; 80048; 80053; 80076; 80185; 80307; 81001; 82140; 82550; 82552; 82805; 82948; 83036; 83605; 83735; 84100; 84132; 84145; 84244; 84443; 84484; 85025; 85027; 85610; 86140; 86703; 87040; 87070; 87205; 87449; 87641; 93005; 93975; 94002; 94003; 94640; 94664; 95819; 96365; J0330; J0360; J0696; J0780; J1644; J1815; J2020; J2250; J2405; J2543; J2930; J3480; J7030; J7050; J7512; Q2009

== ENCOUNTER 2017-08-15 16:04 | Emergency (ER) | payer MEDICAID ==
[~2017-08-15] VITALS: Ht 165.1 cm; Wt 82.0 kg
[~2017-08-15 16:04] MED LIST changes: -AMBI5TAB PO; -BACL20TA PO; -BUSP5TAB PO; +DILA100C PO; +DOXY100T PO; -HYDR-3583 PO; +HYDR25TA5 PO; -IBUP800T23 PO; +LISI-515 PO; -LOSA50TA PO; -LYRI100C PO; +LYRI75CA PO; -NORT50CA PO; -PARO30TA2 PO; -RANI150T PO; +SPIR25 PO; -TIZA4TAB PO; -VARE1PAK5 PO; -VIST50CA PO
[2017-08-15 16:06] VITALS: BP 179/96; PULSE 85; RESP 16; TEMP 98.4; O2SAT 99
--- NOTE | 2017-08-15 17:42 | PD ---
HPI Chief Complaint: Injury Time Seen by Provider: 17:30 Travel History International Travel<30 days: No Contact w/Intl Traveler<30days: No Traveled to known affect area: No History of Present Illness HPI Patient comes in for evaluation of left anterior lateral thigh pain mid thigh ongoing for over a week. Patient states about 10 days ago she had a seizure witnessed by her where she fell landing on her left side. Patient states pain began shortly after that. Patient describes pain is a sharp/ excruciating pain that radiates into her hip. Patient states she's been taking her Lortabs along with [id number] anti-inflammatories with little to no improvement of her symptoms. Pain is worse to palpation. Patient denies any headaches, chest pain, shortness of breath,numbness or tingling anywhere, edema , or new weakness. Patient reports she has some decreased strength in her left lower extremity from previous strokes. Patient reports she has a history of seizures has been taking her medication as prescribed. PFSH Past Medical History Hx Anticoagulant Therapy: Yes Arthritis: Yes Asthma: Yes Autoimmune Disease: No Blood Disorders: No Anxiety: No Depression: Yes Heart Rhythm Problems: No Cancer: Yes (UTERINE) Cardiac Catheterization: Yes (X6) Cardiovascular Problems: Yes High Cholesterol: Yes Chemotherapy: No Chest Pain: Yes Congestive Heart Failure: Yes COPD: Yes Cerebrovascular Accident: Yes Coronary Artery Disease: Yes Diabetes: Yes Diminished Hearing: No Endocrine: Yes Gastrointestinal Disorders: Yes (GASTROPARESIS) GERD: Yes Genitourinary: No Headaches: No Hypertension: Yes Immune Disorder: No Implanted Vascular Access Dvce: No Musculoskeletal: Yes (chronic knee pain, chronic back pain) Neurologic: Yes (NEUROPATHY, CVA ) Psychiatric: Yes Reproductive: No Respiratory: Yes Immunizations Current: Yes Migraines: No Myocardial Infarction: Yes Radiation Therapy: No Seizures: Yes (2000,2001,2002) Sickle Cell Disease: Yes (SICKLE CELL TRAIT) Sleep Apnea: Yes Thyroid Disease: No Ulcer: Yes ?: Not Menopausal: Yes : 10 Para: 7 Miscarriage: 3 Past Surgical History Abdominal Surgery: Yes (GALL BLADDER) Cardiac Surgery: Yes Section: Yes Cholecystectomy: Yes Coronary Stent: Yes (X2) Ear Surgery: No Endocrine Surgery: No Eye Surgery: No Genitourinary Surgery: No Gynecologic Surgery: Yes Hysterectomy: Yes Joint Replacement: Yes (left knee UPCOMING) Neurologic Surgery: Yes (NECK FUSED) Oral Surgery: No Thoracic Surgery: No Other Surgery: Yes (LEFT AXILLARY TUMOR REMOVED) Social History Alcohol Use: No Tobacco Use: Yes (1 PPD) Substance Use: Yes Allergies-Medications (Allergen,Severity, Reaction): Coded Allergies: ciprofloxacin (Unverified Allergy, Severe, SWELLING SOB, 07/05/17) erythromycin base (Unverified Allergy, Severe, SWELLING SOB, 07/05/17) tramadol (Unverified Allergy, Severe, rash, 07/05/17) vancomycin (Unverified Allergy, Severe, SWELLING AND SOB, 07/05/17) Reported Meds & Prescriptions Reported Meds & Active Scripts Active Hydrochlorothiazide 25 Mg Tab 25 Mg PO DAILY Lyrica (Pregabalin) 75 Mg Cap 75 Mg PO DAILY Dilantin (Phenytoin Extended) 100 Mg Cap 200 Mg PO Q12HR Aldactone (Spironolactone) 25 Mg Tab 25 Mg PO DAILY Lisinopril 20 Mg Tab 40 Mg PO DAILY Doxycycline Hyclate 100 Mg Tab 100 Mg PO Q12HR Abilify (Aripiprazole) 15 Mg Tab 15 Mg PO DAILY Omeprazole 40 Mg Cap 40 Mg PO DAILY Lovastatin 20 Mg Tab 20 Mg PO HS Levemir Inj (Insulin Detemir) 1,000 unit/ 10 ML Vial 60 Units SQ BID Do not mix with any other Insulin. Bd Lancet Ultrafine 33G (Lancets) 1 Mis Mis Units ACHS Use to obtain blood for sugar checks Blood Glucose Test Strips Strips Strip 1 Ea .ROUTE DIRECTED Check blood sugar 4 times a day (before meals and at bedtime) Novolog Inj (Insulin Aspart) 1,000 Unit/10 Ml Vial 0-25 Units SQ ACHS Max dose at bedtime:( )units; sugars less than 70,(0) units; sugars 150-199,(5) units; sugars 200-249,(10) units; sugars 250-299,(15) units; sugars 300-349,(20)units; sugars greater than 349,(25)units Lidocaine Topical (Lidocaine HCl) 2 % Jel 1 Applic TOPICAL QID PRN Metoprolol Tartrate 100 Mg Tab 100 Mg PO BID Albuterol Neb (Albuterol Sulfate) 2.5 Mg/3 Ml Neb 2.5 Mg NEB Q4HR NEB PRN Advair Diskus Inh (Fluticasone-Salmeterol Inh) 250-50 Mcg/Blist Aer 1 Puff INH BID Rinse mouth after use. Triamcinolone Topical (Triamcinolone Acetonide) 0.1% Cream 1 Applic TOPICAL BID Nicotine Patch (Nicotine) 21 Mg/24 Hr Patch 21 Mg T-DERMAL DAILY Proair Hfa 8.5 GM Inh (Albuterol Sulfate) 90 Mcg/Act Aer 2 Puff INH Q4-6H PRN 108 mcg/actuation Ondansetron (Ondansetron HCl) 8 Mg Tab 8 Mg PO TID PRN Fluticasone Nasal [place] 50 Mcg/Act Naspr 50 Mcg EACH NARE DAILY 50 mcg/spray Atrovent HFA 12.9 GM Inh (Ipratropium [place]) 17 Mcg/Act Aer 2 Puff INH QID Nebulizer 1 Mis Mis 1 Ea .ROUTE DIRECTED Use with albuterol every 4 hours as needed for shortness of breath, wheezing. Aspirin 81 (Aspirin) 81 Mg Tabdr 81 Mg PO EVERY OTHER DAY Reported Norvasc (Amlodipine Besylate) 10 Mg Tab 10 Mg PO DAILY Singulair (Montelukast Sodium) 10 Mg Tab 10 Mg PO HS Xarelto (Rivaroxaban) 20 Mg Tab 20 Mg PO DAILY Bd Insulin Syringe Ultraf 31G X 5/16" 1 ml (Insulin Syringe/Needle U-100) 1 Mis Mis Ea Review of Systems Except as stated in HPI: all other systems reviewed are Neg Physical Exam Narrative GENERAL: Well-developed, well nourished, in no acute distress, and non-ill appearing. SKIN: Focused skin assessment warm and dry. No erythematous, ecchymosis, abrasions, or other traumatic lesions noted left thigh over area patient reports tenderness. There is no crepitus. HEAD: Atraumatic. Normocephalic. EYES: Pupils equal and round. EOMI. No scleral icterus. No injection or drainage. ENT: No nasal bleeding or discharge. Mucous membranes pink and moist. NECK: Trachea midline. Supple. No nuclear rigidity. CARDIOVASCULAR: Dorsal pulses 2+, intact, equal bilaterally. Capillary refill less than 2 seconds. RESPIRATORY: No accessory muscle use. No respiratory distress. MUSCULOSKELETAL: No obvious deformities. No clubbing. No cyanosis. No edema. Decreased range of motion left lower extremity with dorsal flexion which patient reports is chronic from previous stroke. Hip: FROM and equal BL with passive flexion, extension, Abduction, Adduction, and internal/external rotation. Pulses equal BL distal to injury. Capillary refill less than 2 seconds distal to injury and equal BL. FROM distal to injury and equal BL. Strength distal to injury equal BL. NV intact distal to injury and equal BL. Dorsal flexion equal BL. Dorsal pulses equal BL. Sensation equal BL 1st web space. NEUROLOGICAL: Awake and alert. No obvious cranial nerve deficits. Motor grossly within normal limits. Normal speech. PSYCHIATRIC: Appropriate mood and affect; insight and judgment normal. Data Data Last Documented VS Vital Signs Date Time Temp Pulse Resp B/P (MAP) Pulse Ox O2 Delivery O2 Flow Rate FiO2 08/15/17 18:35 08/15/17 16:06 98.4 85 16 99 Orders Orders Femur (Ap & Lat/2vws) (08/15/17 ) Ed Discharge Order (08/15/17 18:18) [facility] [place] Medical Decision Making Medical Screen Exam Complete: Yes Emergency Medical Condition: Yes Differential Diagnosis Fracture, strain, contusion, other Narrative Course The patient appears to have suffered a contusion of the extremity. There is no clinical evidence to suspect bony injury by exam. Radiographic examination revealed no fracture seen at this time. The patient has her normal range of motion on active and passive motions. There is no significant edema. There is no proximal or distal joint effusion. The distal extremity appears neurovascularly intact, without evidence of neurovascular injury nor compartment syndrome. Tendon exam also was intact. The patient was discharged and given warnings for vascular compromise. The patient is to follow up with their regular physician. The patient agrees with plan. Patient in no obvious distress upon re-evaluation. All pertinent Radiology result(s) discussed with patient. Any questions/concerns in reference to patient diagnosis/condition discussed and clarified prior to patient's discharge. Reinforced sheer importance of close follow up with patient's primary physician or primary care clinic. Instructed patient to return to ED immediately, if symptoms return/worsen. Patient showed understanding of above instructions. Further instructions and recommendations were detailed in discharge paperwork. Patient left without difficulty out of ED at discharge. Diagnosis Primary Impression: Contusion of left thigh, initial encounter Patient Instructions: Contusion in Adults (ED), General Instructions Additional Instructions: Follow-up with your primary care physician in one to 3 days for reevaluation. Plan ice affected area 20 minutes prior as needed for pain. Continue taking your pain medication as prescribed pain control. Return to the emergency department if symptoms get worse. Disposition: 01 DISCHARGE HOME Condition: Stable Ghulam Jenkins Aug 15, 2017 17:42
--- NOTE | 2017-08-15 18:02 | RADRPT ---
EXAM DATE/TIME: 08/15/2017 17:47 [facility] COMPARISON: No previous studies available for comparison. INDICATIONS : Left femur pain; fall 1 week ago. MEDICAL HISTORY : None. SURGICAL HISTORY : None. ENCOUNTER: Initial ACUITY: 1 week PAIN SCORE: 8/10 LOCATION: Left femur. FINDINGS: Two view examination of the left femur demonstrates no evidence of fracture or dislocation. Bony min eralization is normal. The soft tissue structures are intact. CONCLUSION: Unremarkable examination of the left femur. Qasim Madden MD on August 15, 2017 at 18:00 Board Certified Radiologist. This report was verified electronically.
[2017-08-20] MEDS ORDERED: XARE20TA PO (06:32)
[2017-08-21] MEDS ORDERED: DILA100C PO (08:46)
[2017-08-21] MEDS ORDERED: MONT10TA2 PO (08:49)
[2017-08-21] MEDS ORDERED: ALBUAER3 INH (08:51)
== END 2017-08-15 18:37 | disposition home or self-care (01) ==
LOC: NEPC 16:04
DX: S70.12XA Contusion of left thigh, initial encounter (principal); G40.909 Epilepsy, unspecified, not intractable, without status epilepticus; W19.XXXA Unspecified fall, initial encounter
CPT/HCPCS: 73552; 99283

== ENCOUNTER 2017-10-06 08:48 | Observation (INO) | payer MEDICAID ==
[~2017-10-06] VITALS: Ht 165.1 cm; Wt 70.0 kg
[2017-10-06] VITALS (11 sets, daily range): BP systolic 135–198; BP diastolic 79–94; PULSE 78–93; RESP 16–20; TEMP 98.3–98.8; O2SAT 95–100
[~2017-10-06 08:48] MED LIST changes: -ABIL15TA2 PO; +ABIL15TA3 PO; -ASPI-110 PO; +ASPI1TAB57 PO; -DOXY100T PO; -ONDA1TAB17 PO
[2017-10-06] MEDS ORDERED: SODIUM CHLORIDE 0.9% FLUSH 10 ML FLUSH IVF PRN (09:15)
--- NOTE | 2017-10-06 09:21 | PD ---
HPI Chief Complaint: Chest Pain Time Seen by Provider: 09:03 Travel History International Travel<30 days: No Contact w/Intl Traveler<30days: No Traveled to known affect area: No History of Present Illness HPI The patient was seen and examined in the presence of the nurse. This patient complains of sternal area chest tightness. Started yesterday evening. It's come and go. It returned this morning and then she called the paramedics. He is currently pain-free. Symptoms are nonexertional. Severity is moderate. She has history of cardiac stents placed 7 years ago. She can't recall her last stress testing she thinks it was between 1 and 2 years ago. She continues to smoke and has done so for the last 44 years. Duration 12 hours. No alleviating factors. No exacerbating factors. PFSH Past Medical History Hx Anticoagulant Therapy: Yes Arthritis: Yes Asthma: Yes Autoimmune Disease: No Blood Disorders: No Anxiety: No Depression: Yes Heart Rhythm Problems: No Cancer: Yes (UTERINE) Cardiac Catheterization: Yes (X6) Cardiovascular Problems: Yes High Cholesterol: Yes Chemotherapy: No Chest Pain: Yes Congestive Heart Failure: Yes COPD: Yes Cerebrovascular Accident: Yes (x3 2003) Coronary Artery Disease: Yes Diabetes: Yes Patient Takes Glucophage: No Diminished Hearing: No Endocrine: Yes Gastrointestinal Disorders: Yes (GASTROPARESIS) GERD: Yes Genitourinary: No Headaches: No Hypertension: Yes Immune Disorder: No Implanted Vascular Access Dvce: No Musculoskeletal: Yes (chronic knee pain, chronic back pain) Neurologic: Yes (NEUROPATHY, CVA ) Psychiatric: Yes Reproductive: No Respiratory: Yes Immunizations Current: Yes Migraines: No Myocardial Infarction: Yes Radiation Therapy: No Seizures: Yes (2000,2001,2003) Sickle Cell Disease: Yes (SICKLE CELL TRAIT) Sleep Apnea: Yes Thyroid Disease: No Ulcer: Yes ?: Not Menopausal: Yes : 10 Para: 7 Miscarriage: 3 Past Surgical History Abdominal Surgery: Yes (GALL BLADDER) Cardiac Surgery: Yes Section: Yes Cholecystectomy: Yes Coronary Stent: Yes (X2) Ear Surgery: No Endocrine Surgery: No Eye Surgery: No Genitourinary Surgery: No Gynecologic Surgery: Yes Hysterectomy: Yes Joint Replacement: Yes (left knee UPCOMING) Neurologic Surgery: Yes (NECK FUSED) Oral Surgery: No Thoracic Surgery: No Other Surgery: Yes (LEFT AXILLARY TUMOR REMOVED) Social History Alcohol Use: No Tobacco Use: Yes (1 PPD) Substance Use: No Allergies-Medications (Allergen,Severity, Reaction): Coded Allergies: ciprofloxacin (Unverified Allergy, Severe, SWELLING SOB, 07/05/17) erythromycin base (Unverified Allergy, Severe, SWELLING SOB, 07/05/17) tramadol (Unverified Allergy, Severe, rash, 07/05/17) vancomycin (Unverified Allergy, Severe, SWELLING AND SOB, 07/05/17) Reported Meds & Prescriptions Reported Meds & Active Scripts Active Levemir Inj (Insulin Detemir) 1,000 unit/ 10 ML Vial 60 Units SQ BID Do not mix with any other Insulin. Fluticasone Nasal [place] 50 Mcg/Act Naspr 50 Mcg EACH NARE DAILY 50 mcg/spray Singulair (Montelukast Sodium) 10 Mg Tab 10 Mg PO HS Atrovent HFA 12.9 GM Inh (Ipratropium [place]) 17 Mcg/Act Aer 2 Puff INH QID Proair Hfa 8.5 GM Inh (Albuterol Sulfate) 90 Mcg/Act Aer 2 Puff INH Q4-6H PRN 108 mcg/actuation Dilantin (Phenytoin Extended) 100 Mg Cap 200 Mg PO Q12HR Xarelto (Rivaroxaban) 20 Mg Tab 20 Mg PO DAILY Hydrochlorothiazide 25 Mg Tab 25 Mg PO DAILY Lyrica (Pregabalin) 75 Mg Cap 75 Mg PO DAILY Aldactone (Spironolactone) 25 Mg Tab 25 Mg PO DAILY Lisinopril 20 Mg Tab 40 Mg PO DAILY Abilify (Aripiprazole) 15 Mg Tab 15 Mg PO DAILY Omeprazole 40 Mg Cap 40 Mg PO DAILY Lovastatin 20 Mg Tab 20 Mg PO HS Bd Lancet Ultrafine 33G (Lancets) 1 Mis Mis Units ACHS Use to obtain blood for sugar checks Blood Glucose Test Strips Strips Strip 1 Ea .ROUTE DIRECTED Check blood sugar 4 times a day (before meals and at bedtime) Novolog Inj (Insulin Aspart) 1,000 Unit/10 Ml Vial 0-25 Units SQ ACHS Max dose at bedtime:( )units; sugars less than 70,(0) units; sugars 150-199,(5) units; sugars 200-249,(10) units; sugars 250-299,(15) units; sugars 300-349,(20)units; sugars greater than 349,(25)units Metoprolol Tartrate 100 Mg Tab 100 Mg PO BID Albuterol Neb (Albuterol Sulfate) 2.5 Mg/3 Ml Neb 2.5 Mg NEB Q4HR NEB PRN Advair Diskus Inh (Fluticasone-Salmeterol Inh) 250-50 Mcg/Blist Aer 1 Puff INH BID Rinse mouth after use. Triamcinolone Topical (Triamcinolone Acetonide) 0.1% Cream 1 Applic TOPICAL BID Nicotine Patch (Nicotine) 21 Mg/24 Hr Patch 21 Mg T-DERMAL DAILY Nebulizer 1 Mis Mis 1 Ea .ROUTE DIRECTED Use with albuterol every 4 hours as needed for shortness of breath, wheezing. Aspirin 81 (Aspirin) 81 Mg Tabdr 81 Mg PO EVERY OTHER DAY Reported Norvasc (Amlodipine Besylate) 10 Mg Tab 10 Mg PO DAILY Bd Insulin Syringe Ultraf 31G X 5/16" 1 ml (Insulin Syringe/Needle U-100) 1 Mis Mis Ea Review of Systems General / Constitutional: No: Fever Eyes: No: Visual changes HENT: No: Headaches Cardiovascular: Positive: Chest Pain or Discomfort Respiratory: No: Shortness of Breath Gastrointestinal: No: Abdominal Pain Genitourinary: No: Dysuria Musculoskeletal: No: Pain Skin: No Rash Neurologic: No: Weakness Psychiatric: No: Depression Endocrine: No: Polydipsia Hematologic/Lymphatic: No: Easy Bruising Physical Exam Narrative GENERAL: Well-nourished, well-developed patient in no apparent distress. SKIN: Focused skin assessment reveals no rash and nodules. Skin is Warm and dry. HEAD: Atraumatic. Normocephalic. EYES: Pupils equal and round. No scleral icterus. No injection or drainage. ENT: No nasal bleeding or discharge. Mucous membranes pink and moist. NECK: Trachea midline. No JVD. CARDIOVASCULAR: Regular rate and rhythm. No murmur appreciated. RESPIRATORY: No accessory muscle use. Clear to auscultation. Breath sounds equal bilaterally. GASTROINTESTINAL: Abdomen soft, non-tender, nondistended. Hepatic and splenic margins not palpable. MUSCULOSKELETAL: No obvious deformities. No clubbing. No cyanosis. No edema. NEUROLOGICAL: Awake and alert. No obvious cranial nerve deficits. Motor grossly within normal limits. Normal speech. PSYCHIATRIC: Appropriate mood and affect; insight and judgment poor . Data Data Last Documented VS Vital Signs Date Time Temp Pulse Resp B/P (MAP) Pulse Ox O2 Delivery O2 Flow Rate FiO2 10/06/17 09:22 18 98 Room Air 10/06/17 09:03 94 10/06/17 09:02 98.3 Orders Orders Electrocardiogram (10/06/17:15) Basic Metabolic Panel (Bmp) (10/06/17:15) Ckmb (Isoenzyme) Profile (10/06/17:15) Complete Blood Count With Diff (10/06/17:15) Prothrombin Time / Inr (Pt) (10/06/17:15) Act Partial Throm Time (Ptt) (10/06/17:15) Troponin I (10/06/17:15) Chest, Single Ap (10/06/17:15) Ecg Monitoring (10/06/17:15) Iv Access Insert/Monitor (10/06/17:15) Oximetry (10/06/17:15) Sodium Chloride 0.9% Flush (Ns Flush) (10/06/17:15) Labs Laboratory Tests Test 10/06/17 09:21 White Blood Count 6.4 TH/MM3 Red Blood Count 4.73 MIL/MM3 Hemoglobin 13.0 GM/DL Hematocrit 38.8 % Mean Corpuscular Volume 82.0 FL Mean Corpuscular Hemoglobin 27.4 PG Mean Corpuscular Hemoglobin Concent 33.4 % Red Cell Distribution Width 13.6 % Platelet Count 345 TH/MM3 Mean Platelet Volume 7.9 FL Neutrophils (%) (Auto) 45.3 % Lymphocytes (%) (Auto) 47.5 % Monocytes (%) (Auto) 5.1 % Eosinophils (%) (Auto) 1.7 % Basophils (%) (Auto) 0.4 % Neutrophils # (Auto) 2.9 TH/MM3 Lymphocytes # (Auto) 3.0 TH/MM3 Monocytes # (Auto) 0.3 TH/MM3 Eosinophils # (Auto) 0.1 TH/MM3 Basophils # (Auto) 0.0 TH/MM3 CBC Comment DIFF FINAL Differential Comment Prothrombin Time 10.1 SEC Prothromb Time International Ratio 1.0 RATIO Activated Partial Thromboplast Time 26.1 SEC Blood Urea Nitrogen 7 MG/DL Creatinine 0.67 MG/DL Random Glucose 334 MG/DL Calcium Level 8.9 MG/DL Sodium Level 138 MEQ/L Potassium Level 3.5 MEQ/L Chloride Level 104 MEQ/L Carbon Dioxide Level 25.8 MEQ/L Anion Gap 8 MEQ/L Estimat Glomerular Filtration Rate 111 ML/MIN Total Creatine Kinase 54 U/L Troponin I LESS THAN 0.02 NG/ML MDM Medical Decision Making Medical Screen Exam Complete: Yes Emergency Medical Condition: Yes Medical Record Reviewed: Yes Differential Diagnosis Differential diagnosis includes DE, angina, pericarditis, pleurisy, GERD, anxiety. Narrative Course I have reviewed the patient's electronic medical record. Patient is a frequent visitor to the ER. sHe has multiple chronic medical problems. IV placed I reviewed the EKG which shows sinus rhythm but no ST elevation I reviewed the chest x-ray is negative Extended cardiac monitoring shows sinus rhythm without ectopy CBC is normal Metabolic profile shows renal insufficiency with creatinine of 2 CK is normal Troponin is normal Coagulation studies are normal Workup here is negative. Patient has known disease and had suspicious cardiac symptoms. I reviewed his medical residents. They will perform telemetry observation in the hospital to evaluate this Diagnosis Primary Impression: Chest pain Qualified Codes: R07.9 - Chest pain, unspecified Additional Impression: CAD (coronary artery disease) Qualified Codes: I25.10 - Atherosclerotic heart disease of [place] coronary artery without angina pectoris; I25.84 - Coronary atherosclerosis due to calcified coronary lesion Admitting Information Admitting Physician Requests: Observation Dereje Casanova MD Oct 06, 2017 09:21
[2017-10-06 09:45] LABS: AUTOMATED NEUTROPHIL # 2.9 TH/MM3 (1.8-7.7); BASOPHIL % 0.4 % (0.0-2.0); EOSINOPHIL # 0.1 TH/MM3 (0-0.4); EOSINOPHIL % 1.7 % (0.0-4.0); HEMATOCRIT 38.8 % (35.0-46.0); HEMO FLAGS DIFF FINAL; LYMPH % 47.5 % (9.0-44.0); MEAN CORPUSCULAR HEMOGLOBIN 27.4 PG (27.0-34.0); MEAN CORPUSCULAR HGB CONC 33.4 % (32.0-36.0); MONO % 5.1 % (0.0-8.0); NEUT % 45.3 % (16.0-70.0); PLATELET COUNT 345 TH/MM3 (150-450); RED BLOOD COUNT 4.73 MIL/MM3 (4.00-5.30); RED CELL DISTRIBUTION WIDTH 13.6 % (11.6-17.2); WHITE BLOOD COUNT 6.4 TH/MM3 (4.0-11.0)
--- NOTE | 2017-10-06 09:49 | RADRPT ---
EXAM DATE/TIME: 10/06/2017 09:44 [facility] COMPARISON: CHEST SINGLE AP, July 08, 2017, 3:38. INDICATIONS : Chest pain. MEDICAL HISTORY : Chronic obstructive pulmonary disease. Coronary artery disease. SURGICAL HISTORY : Coronary artery stent. ENCOUNTER: Initial ACUITY: 3 days PAIN SCORE: 4/10 LOCATION: Bilateral chest FINDINGS: A single view of the chest demonstrates the lungs to be symmetrically aerated without evidence of mas s, infiltrate or effusion. The cardiomediastinal contours are unremarkable. Osseous structures are intact. CONCLUSION: No evidence of acute cardiopulmonary disease. Mukund Stroud MD on October 06, 2017 at 9:47 Board Certified Radiologist. This report was verified electronically.
[2017-10-06 09:53] LABS: APTT (PATIENT) 26.1 SEC (24.3-30.1); PROTHROMBIN TIME - PATIENT 10.1 SEC (9.8-11.6)
[2017-10-06 10:05] LABS: ANION GAP 8 MEQ/L (5-15); BICARBONATE 25.8 MEQ/L (21.0-32.0); BLOOD UREA NITROGEN 7 MG/DL (7-18); CHLORIDE 104 MEQ/L (98-107); GLOMERULAR FILTRATION RATE 111 ML/MIN (>89); POTASSIUM 3.5 MEQ/L (3.5-5.1); SODIUM (NA) 138 MEQ/L (136-145)
[2017-10-06 10:21] LABS: CREATINE KINASE 54 U/L (26-192)
--- NOTE | 2017-10-06 11:02 | HHI.HP ---
[facility] Service Family Medicine Primary Care Physician Juan Ramon Jason MD Admission Diagnosis chest pain Diagnoses: International Travel<30 Days: No Contact w/Intl Traveler<30days: No Known Affected Area: No History of Present Illness Patient is a very pleasant 51-year-old woman with extensive PMH including DM, HTN, PR, CAD s/p stenting, CVA 3, COPD, chronic pain brought to the ED via [facility] due to chest pressure and lightheadedness occurring shortly after waking up this morning. She states she woke up at approximately 6 AM this morning and felt lightheaded after sitting up in bed. She states she walked to her kitchen and started having chest pressure again. She reports her chest pressure currently is kimberly. 4/10, centrally located, radiating slightly to left-sided chest, constant. She states she had started having chest pressure yesterday morning, at that time it was kimberly. 6/10 in severity. Denies severe chest pain or diaphoresis, no palpitations. She received as aspirin en route to the ED. She also reports having a headache that started yesterday morning as well. Headache is diffuse, ~7/10 severity, endorses associated with photophobia. She denies any other focal neuro deficit; does endorse generalized weakness but states this is baseline for her. Denies any episodes of syncope. Denies passing out or falling this morning. She reports having diarrhea beginning about one week ago, having about 4-5 BMs daily, watery, nonbloody, states diarrhea stopped about 2 days ago and she had a formed stool yesterday. Denies abdominal pain. No sick contacts at home. She reports nausea onset yesterday morning and still having nausea currently. Review of Systems Constitutional: COMPLAINS OF: Dizziness, DENIES: Fever Eyes: DENIES: Blurred vision, Diplopia Respiratory: COMPLAINS OF: Cough (Endorses having a dry cough), DENIES: Wheezing, Sputum production, Shortness of breath Cardiovascular: COMPLAINS OF: Chest pain, DENIES: Palpitations, Syncope, Lower Extremity Edema Gastrointestinal: COMPLAINS OF: Nausea, DENIES: Constipation, Vomiting Genitourinary: DENIES: Urinary frequency, Hematuria, Dysuria Neurologic: COMPLAINS OF: Headache, DENIES: Abnormal gait, Localized weakness Psychiatric: DENIES: Confusion Past Family Social History Past Medical History Diabetes Hypertension PR in 2011 Diabetic sensory neuropathy Chronic pain GERD COPD HLD CVA 3 with residual left-sided weakness Tobacco use disorder Lung nodules Seizures Past Surgical History Total hysterectomy in 1999 Cholecystectomy Left arm and tumor removal Neck fusion Coronary stenting Allergies: Coded Allergies: ciprofloxacin (Unverified Allergy, Severe, SWELLING SOB, 07/05/17) erythromycin base (Unverified Allergy, Severe, SWELLING SOB, 07/05/17) tramadol (Unverified Allergy, Severe, rash, 07/05/17) vancomycin (Unverified Allergy, Severe, SWELLING AND SOB, 07/05/17) Family History Father: DM, ?colon cancer Mother: DM, HTN, CAD Social History Tobacco: 1 PPD x 40 years, had been on Chantix about one month ago, down to 1/2 PPD currently Etoh: denies Illicit drug use: denies Occupation: on disability Living situation: Lives with of 19 years at home Has 7 children all [place] Physical Exam Vital Signs Vital Signs Date Time Temp Pulse Resp B/P (MAP) Pulse Ox O2 Delivery O2 Flow Rate FiO2 10/06/17 09:22 18 98 Room Air 10/06/17 09:03 94 18 98 Room Air 10/06/17 09:02 98.3 93 18 135/81 (99) 98 Room Air Physical Exam GENERAL: NAD, lying comfortably in bed, non-labored breathing NEURO: Alert. Normal speech. soup mixer tested and intact. Motor grossly normal. Strength 5/5 throughout. Gait not tested. SKIN: Warm and dry. Multiple hyperpigmented skin lesions noted on various parts of body. Ovoid-shaped superficial open wound without purulence or drainage along left upper back. HEAD: Normocephalic. Atraumatic. EYES: PERRL. EOMI. No scleral icterus. No injection or drainage. ENT: No nasal drainage. Moist mucous membranes. No oral ulcers or lesions. NECK: Supple. No JVD. No carotid bruits. CARDIOVASCULAR: Regular rate and rhythm without murmurs, rubs, or gallops. Peripheral pulses 2+. Capillary refill < 2 seconds. RESPIRATORY: Breath sounds clear to auscultation and equal bilaterally, without wheezes, rales, or rhonchi. No accessory muscle use. GASTROINTESTINAL: Abdomen soft, nontender, nondistended, normal BS. No organomegaly or masses appreciated. No rebound tenderness. No guarding. MUSCULOSKELETAL: No lower extremity edema. Normal range of motion. BACK: Nontender without obvious deformity. Laboratory Laboratory Tests Test 10/06/17 09:21 White Blood Count 6.4 Red Blood Count 4.73 Hemoglobin 13.0 Hematocrit 38.8 Mean Corpuscular Volume 82.0 Mean Corpuscular Hemoglobin 27.4 Mean Corpuscular Hemoglobin Concent 33.4 Red Cell Distribution Width 13.6 Platelet Count 345 Mean Platelet Volume 7.9 Neutrophils (%) (Auto) 45.3 Lymphocytes (%) (Auto) 47.5 Monocytes (%) (Auto) 5.1 Eosinophils (%) (Auto) 1.7 Basophils (%) (Auto) 0.4 Neutrophils # (Auto) 2.9 Lymphocytes # (Auto) 3.0 Monocytes # (Auto) 0.3 Eosinophils # (Auto) 0.1 Basophils # (Auto) 0.0 CBC Comment DIFF FINAL Differential Comment Prothrombin Time 10.1 Prothromb Time International Ratio 1.0 Activated Partial Thromboplast Time 26.1 Blood Urea Nitrogen 7 Creatinine 0.67 Random Glucose 334 Calcium Level 8.9 Sodium Level 138 Potassium Level 3.5 Chloride Level 104 Carbon Dioxide Level 25.8 Anion Gap 8 Estimat Glomerular Filtration Rate 111 Total Creatine Kinase 54 Troponin I LESS THAN 0.02 Result Diagram: 10/06/1792010/06/17920 Caprini VTE Risk Assessment Caprini VTE Risk Assessment: No/Low Risk (score <= 1) Caprini Risk Assessment Model Point Value = 1 Point Value = 2 Point Value = 3 Point Value = 5 Age 41-60 Minor surgery BMI > 25 kg/m2 Swollen legs Varicose veins or History of unexplained or recurrent spontaneous Oral contraceptives or hormone replacement Sepsis (< 1 month) Serious lung disease, including pneumonia (< 1 month) Abnormal pulmonary function Acute myocardial infarction Congestive heart failure (< 1 month) History of inflammatory bowel disease Medical patient at bed rest Age 61-74 Arthroscopic surgery Major open surgery (> 45 min) Laparoscopic surgery (> 45 min) Malignancy Confined to bed (> 72 hours) Immobilizing plaster cast Central venous access Age >= 75 History of VTE Family history of VTE Factor V Leiden Prothrombin [id number] Lupus anticoagulant Anticardiolipin antibodies Elevated serum homocysteine Heparin-induced thrombocytopenia Other congenital or acquired thrombophilia Stroke (< 1 month) Elective arthroplasty Hip, pelvis, or leg fracture Acute spinal cord injury (< 1 month) Prophylaxis Regimen Total Risk Factor Score Risk Level Prophylaxis Regimen 0-1 Low Early ambulation 2 Moderate Order ONE of the following: *Sequential Compression Device (SCD) *Heparin 5000 units SQ BID 3-4 Higher Order ONE of the following medications: *Heparin 5000 units SQ TID *Enoxaparin/Lovenox 40 mg SQ daily (WT < 150 kg, CrCl > 30 mL/min) *Enoxaparin/Lovenox 30 mg SQ daily (WT < 150 kg, CrCl > 10-29 mL/min) *Enoxaparin/Lovenox 30 mg SQ BID (WT < 150 kg, CrCl > 30 mL/min) AND/OR *Sequential Compression Device (SCD) 5 or more Highest Order ONE of the following medications: *Heparin 5000 units SQ TID (Preferred with Epidurals) *Enoxaparin/Lovenox 40 mg SQ daily (WT < 150 kg, CrCl > 30 mL/min) *Enoxaparin/Lovenox 30 mg SQ daily (WT < 150 kg, CrCl > 10-29 mL/min) *Enoxaparin/Lovenox 30 mg SQ BID (WT < 150 kg, CrCl > 30 mL/min) AND *Sequential Compression Device (SCD) Assessment and Plan Assessment and Plan 51-year-old female admitted to observation due to chest pain, rule out an ACS. Code Status Full code Discussed Condition With Will discuss with family practice service Problem List: (1) Chest pain ICD Codes: R07.9 - Chest pain, unspecified Status: Acute Plan: Initial troponin < 0.[address] changes Will trend troponins and EKGs q6h x2 SL nitro prn CP Continue aspirin daily O2 as needed Consider carotid ultrasound or repeat echo per primary team or outpatient workup given patient with pre-syncope symptoms Last echo from 02/2017 showing systolic function mildly reduced, estimated EF in the range of 45-50% (2) COPD (chronic obstructive pulmonary disease) ICD Codes: J44.9 - Chronic obstructive pulmonary disease, unspecified Status: Chronic Plan: Duonebs q6h prn Symbicort 2 puffs bid O2 via NC to maintain O2 sats between 88-92% (3) Diabetes mellitus ICD Codes: E11.9 - Type 2 diabetes mellitus without complications Status: Chronic Plan: Hold home insulin regimen Accuchecks ACHS Low-dose ISS Levemir 10 units BID for now Increase as needed (4) Hypertension ICD Codes: I10 - Essential (primary) hypertension Status: Chronic Plan: Monitor vitals q4h Continue home antihypertensives - Amlodipine 10 mg po daily - Lisinopril 40 mg po daily - Metoprolol 100 mg po bid - Spironolactone 20 mg po daily Patient stated she has not taken HCTZ in about a month, will hold for now as blood pressure is well controlled (5) Hyperlipidemia ICD Codes: E78.5 - Hyperlipidemia Status: Chronic Plan: Continue home lovastatin (6) GERD (gastroesophageal reflux disease) ICD Codes: K21.9 - Gastroesophageal reflux disease Status: Chronic Plan: Protonix 40 mg po daily (7) Chronic pain ICD Codes: G89.29 - Other chronic pain Status: Chronic Plan: Per review of records and patient report, patient takes [place] 10/325 1 tab po prn pain Continue norco 10/325 1 tab po prn pain 6-10 (8) Tobacco abuse ICD Codes: Z72.0 - Tobacco use Status: Chronic Plan: Hold nicotine patch until ACS ruled out (9) Seizure disorder ICD Codes: G40.909 - Epilepsy, unspecified, not intractable, without status epilepticus Status: Chronic Plan: Continue home Dilantin Seizure precautions Ativan 2 mg IV prn uncontrolled seizures (10) Nutrition, metabolism, and development symptoms ICD Codes: R63.8 - Other symptoms and signs concerning food and fluid intake Status: Acute Plan: Fluids: NS at 110 cc/hr Electrolytes: WNL, continue to monitor Nutrition: 1800 ADA DVT ppx: heparin 5000 units sq q8h Physician Certification 2 Midnight Certification Type: Admission for Inpatient Services Order for Inpatient Services The services are ordered in accordance with Medicare regulations or non- Medicare payer requirements, as applicable. In the case of services not specified as inpatient-only, they are appropriately provided as inpatient services in accordance with the 2-midnight benchmark. Estimated LOS (days): 1 days is the estimated time the patient will need to remain in the hospital, assuming treatment plan goals are met and no additional complications. Post-Hospital Plan: Home Problem Qualifiers (1) Chest pain: Qualified Codes: R07.9 - Chest pain, unspecified Federico London MD R2 Oct 06, 2017 11:02
[2017-10-06] MEDS ORDERED: RESP: ALBUTEROL 2.5 MG/IPRATROPIUM 0.5 MG NEB (PRN) NEB (12:15)
[2017-10-06] MEDS ORDERED: SODIUM CHLORIDE 0.9% FLUSH 10 ML FLUSH IV FLUSH PRN (12:15)
[2017-10-06] MEDS ORDERED: ONDANSETRON HCL 4 MG/2 ML VIAL IVP PRN (12:15)
[2017-10-06] MEDS ORDERED: LACTULOSE SYRUP 20 GM/30 ML CUP PO PRN (12:15)
[2017-10-06] MEDS ORDERED: NALOXONE HCL 0.4 MG/ML AMP IV PUSH PRN (12:15)
[2017-10-06] MEDS ORDERED: BISACODYL 10 MG SUPP RECTAL PRN (12:15)
[2017-10-06] MEDS ORDERED: HEPARIN SODIUM - SQ 10,000 UNITS/ML VIAL SQ SCH (12:15)
[2017-10-06] MEDS ORDERED: MAGNESIUM HYDROXIDE SUSP 30 ML CUP PO PRN (12:15)
[2017-10-06] MEDS ORDERED: LORazepam 2 MG/ML VIAL IV PUSH PRN (12:30)
[2017-10-06] MEDS ORDERED: NITROGLYCERIN 0.4 MG SL 25 TABS/BTL SL PRN (12:45)
[2017-10-06] MEDS: SPIRONOLACTONE 25 MG TAB PO SCH (12:48)
[2017-10-06] MEDS: LISINOPRIL 20 MG TAB PO SCH (12:48)
[2017-10-06] MEDS: PANTOPRAZOLE SOD 40 MG DELAYED RELEASE TAB PO SCH (12:48)
[2017-10-06] MEDS: PHENYTOIN SODIUM 100 MG CAP PO SCH ×2 (12:48→20:12)
[2017-10-06] MEDS: ACETAMINOPHEN 325 MG TAB PO PRN ×2 (12:48→18:29)
[2017-10-06] MEDS: RIVAROXABAN 20 MG TAB PO SCH (12:48)
[2017-10-06] MEDS: SODIUM CHLORIDE 0.9% FLUSH 10 ML FLUSH IV FLUSH SCH ×2 (12:49→20:12)
[2017-10-06] MEDS: INSULIN DETEMIR 100 UNITS/ML VIAL SQ SCH ×2 (12:49→20:37)
[2017-10-06] MEDS: SODIUM CHLOR 0.9% 1000 ML INJ 1,000 ML IV SCH ×2 (12:49→23:58)
[2017-10-06] MEDS: BUDESONIDE-FORMOTEROL 160/4.5 MCG INHALER INH SCH ×2 (12:57→20:11)
[2017-10-06] MEDS: ARIPiprazole 15 MG TAB PO SCH (12:57)
[2017-10-06] MEDS: ACETAMINOPHEN/HYDROcodone 325 MG/10 MG TAB PO PRN (14:26)
[2017-10-06] MEDS: INSULIN ASPART SUPPLEMENTAL SCALE SQ SCH ×2 (18:29→20:37)
[2017-10-06] MEDS ORDERED: MORPHINE SULFATE 2 MG/ML INJ IM PRN (19:00)
[2017-10-06] MEDS ORDERED: IBUPROFEN 400 MG TAB PO ONE (19:00)
[2017-10-06] MEDS: METOPROLOL TARTRATE 100 MG TAB PO SCH (20:12)
[2017-10-06] MEDS: DOCUSATE SODIUM 50 MG/SENNA 8.6 MG TAB PO SCH (20:13)
[2017-10-06] MEDS: PRAVASTATIN SOD 20 MG TAB PO SCH (20:13)
[2017-10-06] MEDS: MONTELUKAST SODIUM 10 MG TAB PO SCH (20:13)
[2017-10-06 22:35] LABS: BLOOD, URINE NEG (NEG); COMMENT (UR) CULT NOT INDICATED; CULTURE IF INDICATED CULT NOT INDICATED; GLUCOSE,URINE 1000 mg/dL (NEG); HYALINE CAST, URINE 3 /lpf (RARE); KETONE, URINE NEG (NEG); MUCUS URINE FEW /lpf (OCC); NITRITE,URINE NEG (NEG); SQUAMOUS EPITHELIAL CELL URINE 2 /hpf (0-5); URINE COLOR YELLOW (YELLW/STRAW)
[2017-10-06] MEDS: ENALAPRILAT 1.25 MG/ML VIAL IV PUSH PRN (23:58)
[2017-10-07] VITALS (12 sets, daily range): BP systolic 174–203; BP diastolic 84–97; PULSE 64–79; RESP 17–20; TEMP 97.3–98.8; O2SAT 98–100
[2017-10-07] MEDS: ACETAMINOPHEN/HYDROcodone 325 MG/10 MG TAB PO PRN ×3 (02:30→15:08)
[2017-10-07 02:53] LABS: HEMATOCRIT 37.3 % (35.0-46.0); MEAN CORPUSCULAR HEMOGLOBIN 27.5 PG (27.0-34.0); MEAN CORPUSCULAR HGB CONC 32.8 % (32.0-36.0); PLATELET COUNT 306 TH/MM3 (150-450); RED BLOOD COUNT 4.44 MIL/MM3 (4.00-5.30); RED CELL DISTRIBUTION WIDTH 13.6 % (11.6-17.2); REVIEW FLAG FINAL; WHITE BLOOD COUNT 6.1 TH/MM3 (4.0-11.0)
[2017-10-07 03:14] LABS: BICARBONATE 25.6 MEQ/L (21.0-32.0); POTASSIUM 3.6 MEQ/L (3.5-5.1)
[2017-10-07] MEDS ORDERED: cloNIDine HCL 0.1 MG TAB PO ONE (06:15)
[2017-10-07] MEDS: SODIUM CHLOR 0.9% 1000 ML INJ 1,000 ML IV SCH ×3 (06:44→21:41)
[2017-10-07] MEDS: SODIUM CHLORIDE 0.9% FLUSH 10 ML FLUSH IV FLUSH SCH ×2 (09:00→21:00)
[2017-10-07] MEDS: PHENYTOIN SODIUM 100 MG CAP PO SCH ×2 (09:01→21:38)
[2017-10-07] MEDS: RIVAROXABAN 20 MG TAB PO SCH (09:02)
[2017-10-07] MEDS: METOPROLOL TARTRATE 100 MG TAB PO SCH ×2 (09:02→21:38)
[2017-10-07] MEDS: HYDROCHLOROTHIAZIDE 25 MG TAB PO SCH (09:03)
[2017-10-07] MEDS: ASPIRIN 81 MG CHEW TAB CHEW SCH (09:03)
[2017-10-07] MEDS: LISINOPRIL 20 MG TAB PO SCH (09:03)
[2017-10-07] MEDS: PANTOPRAZOLE SOD 40 MG DELAYED RELEASE TAB PO SCH (09:03)
[2017-10-07] MEDS: SPIRONOLACTONE 25 MG TAB PO SCH (09:04)
[2017-10-07] MEDS: DOCUSATE SODIUM 50 MG/SENNA 8.6 MG TAB PO SCH ×2 (09:04→21:00)
[2017-10-07] MEDS: BUDESONIDE-FORMOTEROL 160/4.5 MCG INHALER INH SCH ×2 (09:04→21:38)
[2017-10-07] MEDS: INSULIN DETEMIR 100 UNITS/ML VIAL SQ SCH ×2 (09:23→21:41)
[2017-10-07] MEDS: INSULIN ASPART SUPPLEMENTAL SCALE SQ SCH ×4 (09:24→21:41)
[2017-10-07] MEDS ORDERED: INFLUENZA VIRUS VACCINE (QUADRIVALENT) 0.5 ML SYR IM ONE (10:00)
--- NOTE | 2017-10-07 11:54 | HHI.HP ---
[facility] Service Family Medicine Primary Care Physician Juan Ramon Jason MD Admission Diagnosis chest pain Diagnoses: (1) Chest pain Diagnosis: Principal (2) COPD (chronic obstructive pulmonary disease) Diagnosis: Principal (3) Diabetes mellitus Diagnosis: Principal (4) Hypertension Diagnosis: Principal (5) Hyperlipidemia Diagnosis: Principal (6) GERD (gastroesophageal reflux disease) Diagnosis: Principal (7) Chronic pain Diagnosis: Principal (8) Tobacco abuse Diagnosis: Principal (9) Seizure disorder Diagnosis: Principal (10) Nutrition, metabolism, and development symptoms Diagnosis: Principal International Travel<30 Days: No Contact w/Intl Traveler<30days: No Known Affected Area: No History of Present Illness Ms Stern is a very pleasant 51-year-old woman with extensive PMH including DM, HTN, MN, CAD s/p stenting, CVA 3, COPD, chronic pain brought to the ED via [facility] due to chest pressure and lightheadedness occurring shortly after waking up this morning. She states she woke up at approximately 6 AM yesterday morning and felt lightheaded after sitting up in bed. She states she walked to her kitchen and started having chest pressure again. She reports her chest pressure currently is kimberly. 4/10, centrally located, radiating slightly to left-sided chest, constant. She states she had started having chest pressure yesterday morning, at that time it was kimberly. 6/10 in severity. Denies severe chest pain or diaphoresis, no palpitations. She received as aspirin en route to the ED. She also reports having a headache that started yesterday morning as well. Headache is diffuse, ~7/10 severity, endorses associated with photophobia. She denies any other focal neuro deficit; does endorse generalized weakness but states this is baseline for her. Denies any episodes of syncope. Denies passing out or falling this morning. She reports having diarrhea beginning about one week ago, having about 4-5 BMs daily, watery, nonbloody, states diarrhea stopped about 2 days ago and she had a formed stool yesterday. Denies abdominal pain. No sick contacts at home. She reports nausea onset yesterday morning and still having nausea currently. Ms Stern and her provided more history today. Her seems confused as he was giving a history of seeing me 3 days ago in the hospital. Then he said he saw me in the office at [facility]. Ms Stern has not been seen in the office since March as best I can tell and i saw her in June in the hospital. Therefore history is obtained from the pt herself and her nurse. Her BPs have been very high as well as her glucoses. When asked today about her chest pain and tightness she denied having any problem right now. She is most concerned about her headaches. She blames her neck as she reportedly has disc problems and had a fall back in July. She has headaches back of neck and around head. she states she has 2 rods in her neck. she also has sore arms (more shoulders) She also has chills and subjective fevers. she fell in July and states her left leg is now weaker and smaller than the right leg. she has burning and pain in her toes bilaterally. Her headaches resemble her prior migraines but she could not further clarify this. She has had some chills for at least 2 weeks. Review of Systems Other Constitutional: COMPLAINS OF: Dizziness, DENIES: Fever Eyes: DENIES: Blurred vision, Diplopia Respiratory: COMPLAINS OF: Cough (Endorses having a dry cough), DENIES: Wheezing, Sputum production, Shortness of breath Cardiovascular: COMPLAINS OF: Chest pain, DENIES: Palpitations, Syncope, Lower Extremity Edema Gastrointestinal: COMPLAINS OF: Nausea, DENIES: Constipation, Vomiting Genitourinary: DENIES: Urinary frequency, Hematuria, Dysuria Neurologic: COMPLAINS OF: Headache, DENIES: Abnormal gait, Localized weakness Psychiatric: DENIES: Confusion Past Family Social History Past Medical History Diabetes Hypertension MN in 2011 Diabetic sensory neuropathy Chronic pain GERD COPD HLD CVA 3 with residual left-sided weakness Tobacco use disorder Lung nodules Seizures Past Surgical History Total hysterectomy in 1999 Cholecystectomy Left arm and tumor removal Neck fusion Coronary stenting Allergies: Coded Allergies: ciprofloxacin (Unverified Allergy, Severe, SWELLING SOB, 07/05/17) erythromycin base (Unverified Allergy, Severe, SWELLING SOB, 07/05/17) tramadol (Unverified Allergy, Severe, rash, 07/05/17) vancomycin (Unverified Allergy, Severe, SWELLING AND SOB, 07/05/17) Family History Father: DM, ?colon cancer Mother: DM, HTN, CAD Social History Tobacco: 1 PPD x 40 years, had been on Chantix about one month ago, down to 1/2 PPD currently Etoh: denies Illicit drug use: denies Occupation: on disability Living situation: Lives with of 19 years at home Has 7 children all grown [place] Physical Exam Vital Signs Vital Signs Date Time Temp Pulse Resp B/P (MAP) Pulse Ox O2 Delivery O2 Flow Rate FiO2 10/07/17 10:52 98.3 72 18 179/88 (118) 100 10/07/17 07:35 100 Nasal Cannula 2.00 10/07/17 07:10 97.3 74 18 99 203/97 (132) 10/07/17 05:16 186/90 (122) 10/07/17 04:35 71 10/07/17 03:30 21 10/07/17 03:25 98.2 67 17 185/86 (119) 98 10/07/17 00:40 79 10/06/17 23:15 98.3 78 17 198/90 (126) 100 10/06/17 20:33 98 10/06/17 20:00 98.3 82 16 136/79 (98) 99 10/06/17 19:35 22 10/06/17 19:09 81 10/06/17 16:38 160/94 (116) 10/06/17 15:11 95 21 10/06/17 14:18 150/90 (110) 10/06/17 14:14 174/81 (112) 10/06/17 12:13 98.8 82 20 183/86 (118) 96 Physical Exam GENERAL: NAD, lying comfortably in bed, non-labored breathing NEURO: Alert. Normal speech. tool procurement coordinator tested and intact. Motor grossly normal. Strength 5/5 throughout. Gait not tested. SKIN: Warm and dry. Multiple hyperpigmented skin lesions noted on various parts of body. Ovoid-shaped superficial open wound without purulence or drainage along left upper back. scarring lower back hypopigmented as well as healing lesions on legs HEAD: Normocephalic. Atraumatic. EYES: PERRL. EOMI. No scleral icterus. No injection or drainage. ENT: No nasal drainage. Moist mucous membranes. No oral ulcers or lesions. NECK: Supple. No JVD. No carotid bruits. CARDIOVASCULAR: Regular rate and rhythm without murmurs, rubs, or gallops. Peripheral pulses 2+. Capillary refill < 2 seconds. RESPIRATORY: Breath sounds clear to auscultation and equal bilaterally, without wheezes, rales, or rhonchi. No accessory muscle use. GASTROINTESTINAL: Abdomen soft, nontender, nondistended, normal BS. No organomegaly or masses appreciated. No rebound tenderness. No guarding. MUSCULOSKELETAL: No lower extremity edema. Normal range of motion. BACK: Nontender without obvious deformity. Laboratory Laboratory Tests Test 10/06/17 15:29 10/06/17 20:40 10/06/17 21:45 10/07/17 02:39 Troponin I LESS THAN 0.02 LESS THAN 0.02 Urine Color YELLOW Urine Turbidity CLEAR Urine pH 6.0 Urine Specific [place] 1.042 Urine Protein 30 Urine Glucose (UA) 1000 Urine Ketones NEG Urine Occult Blood NEG Urine Nitrite NEG Urine Bilirubin NEG Urine Urobilinogen LESS THAN 2.0 Urine Leukocyte Esterase NEG Urine RBC LESS THAN 1 Urine WBC 1 Urine Squamous Epithelial Cells 2 Urine Hyaline Casts 3 Urine Mucus FEW Microscopic Urinalysis Comment CULT NOT INDICATED White Blood Count 6.1 Red Blood Count 4.44 Hemoglobin 12.2 Hematocrit 37.3 Mean Corpuscular Volume 84.0 Mean Corpuscular Hemoglobin 27.5 Mean Corpuscular Hemoglobin Concent 32.8 Red Cell Distribution Width 13.6 Platelet Count 306 Mean Platelet Volume 7.8 Erythrocyte Sedimentation Rate 35 Blood Urea Nitrogen 13 Creatinine 0.71 Random Glucose 354 Calcium Level 8.9 Sodium Level 136 Potassium Level 3.6 Chloride Level 104 Carbon Dioxide Level 25.6 Anion Gap 6 Estimat Glomerular Filtration Rate 104 Result Diagram: 10/07/1723810/07/17238 Caprini VTE Risk Assessment Caprini VTE Risk Assessment: No/Low Risk (score <= 1) Caprini Risk Assessment Model Point Value = 1 Point Value = 2 Point Value = 3 Point Value = 5 Age 41-60 Minor surgery BMI > 25 kg/m2 Swollen legs Varicose veins or History of unexplained or recurrent spontaneous Oral contraceptives or hormone replacement Sepsis (< 1 month) Serious lung disease, including pneumonia (< 1 month) Abnormal pulmonary function Acute myocardial infarction Congestive heart failure (< 1 month) History of inflammatory bowel disease Medical patient at bed rest Age 61-74 Arthroscopic surgery Major open surgery (> 45 min) Laparoscopic surgery (> 45 min) Malignancy Confined to bed (> 72 hours) Immobilizing plaster cast Central venous access Age >= 75 History of VTE Family history of VTE Factor V Leiden Prothrombin 10500P Lupus anticoagulant Anticardiolipin antibodies Elevated serum homocysteine Heparin-induced thrombocytopenia Other congenital or acquired thrombophilia Stroke (< 1 month) Elective arthroplasty Hip, pelvis, or leg fracture Acute spinal cord injury (< 1 month) Prophylaxis Regimen Total Risk Factor Score Risk Level Prophylaxis Regimen 0-1 Low Early ambulation 2 Moderate Order ONE of the following: *Sequential Compression Device (SCD) *Heparin 5000 units SQ BID 3-4 Higher Order ONE of the following medications: *Heparin 5000 units SQ TID *Enoxaparin/Lovenox 40 mg SQ daily (WT < 150 kg, CrCl > 30 mL/min) *Enoxaparin/Lovenox 30 mg SQ daily (WT < 150 kg, CrCl > 10-29 mL/min) *Enoxaparin/Lovenox 30 mg SQ BID (WT < 150 kg, CrCl > 30 mL/min) AND/OR *Sequential Compression Device (SCD) 5 or more Highest Order ONE of the following medications: *Heparin 5000 units SQ TID (Preferred with Epidurals) *Enoxaparin/Lovenox 40 mg SQ daily (WT < 150 kg, CrCl > 30 mL/min) *Enoxaparin/Lovenox 30 mg SQ daily (WT < 150 kg, CrCl > 10-29 mL/min) *Enoxaparin/Lovenox 30 mg SQ BID (WT < 150 kg, CrCl > 30 mL/min) AND *Sequential Compression Device (SCD) Assessment and Plan Assessment and Plan 51-year-old female admitted to observation due to chest pain, rule out an ACS. Problem List: (1) Chest pain ICD Codes: R07.9 - Chest pain, unspecified Status: Acute Plan: Initial troponin < 0.[address] changes troponins all low and EKGs q6h x2 SL nitro prn CP Continue aspirin daily O2 as needed Consider carotid ultrasound or repeat echo per primary team or outpatient workup given patient with pre-syncope symptoms Last echo from 02/2017 showing systolic function mildly reduced, estimated EF in the range of 45-50% today she has no complaint of chest pain. will ask her again before she leaves so can see if she needs further cardiac testing but her sxs today are not cardiac (2) Myalgia ICD Codes: M79.1 - Myalgia Status: Acute Plan: She has skin findings that could be related to a rheumatologic disorder she also has myalgias will check her neck to be sure she has no stenosis or problem with that (3) Diabetes mellitus ICD Codes: E11.9 - Type 2 diabetes mellitus without complications Status: Chronic Plan: Hold home insulin regimen Accuchecks ACHS Low-dose ISS Levemir 10 units BID for now Increase as needed (4) Hypertension ICD Codes: I10 - Essential (primary) hypertension Status: Chronic Plan: Monitor vitals q4h Continue home antihypertensives - Amlodipine 10 mg po daily - Lisinopril 40 mg po daily - Metoprolol 100 mg po bid - Spironolactone 20 mg po daily Patient stated she has not taken HCTZ in about a month, will hold for now as blood pressure is well controlled (5) Hyperlipidemia ICD Codes: E78.5 - Hyperlipidemia Status: Chronic Plan: Continue home lovastatin (6) GERD (gastroesophageal reflux disease) ICD Codes: K21.9 - Gastroesophageal reflux disease Status: Chronic Plan: Protonix 40 mg po daily (7) Chronic pain ICD Codes: G89.29 - Other chronic pain Status: Chronic Plan: Per review of records and patient report, patient takes [place] 10/325 1 tab po prn pain Continue norco 10/325 1 tab po prn pain 6-10 (8) Tobacco abuse ICD Codes: Z72.0 - Tobacco use Status: Chronic Plan: Hold nicotine patch until ACS ruled out (9) Seizure disorder ICD Codes: G40.909 - Epilepsy, unspecified, not intractable, without status epilepticus Status: Chronic Plan: Continue home Dilantin Seizure precautions Ativan 2 mg IV prn uncontrolled seizures (10) Nutrition, metabolism, and development symptoms ICD Codes: R63.8 - Other symptoms and signs concerning food and fluid intake Status: Acute Plan: Fluids: NS at 110 cc/hr Electrolytes: WNL, continue to monitor Nutrition: 1800 ADA DVT ppx: heparin 5000 units sq q8h (11) COPD (chronic obstructive pulmonary disease) ICD Codes: J44.9 - Chronic obstructive pulmonary disease, unspecified Status: Chronic Plan: Duonebs q6h prn Symbicort 2 puffs bid O2 via NC to maintain O2 sats between 88-92% Problem Qualifiers (1) Chest pain: Qualified Codes: R07.9 - Chest pain, unspecified (2) COPD (chronic obstructive pulmonary disease): Qualified Codes: J44.9 - Chronic obstructive pulmonary disease, unspecified (3) Diabetes mellitus: Qualified Codes: E11.8 - Type 2 diabetes mellitus with unspecified complications (4) Hypertension: Qualified Codes: I10 - Essential (primary) hypertension (5) Hyperlipidemia: Qualified Codes: E78.5 - Hyperlipidemia, unspecified (6) GERD (gastroesophageal reflux disease): Qualified Codes: K21.9 - Gastro-esophageal reflux disease without esophagitis (7) Chronic pain: Qualified Codes: G89.4 - Chronic pain syndrome Susan Valadez MD Oct 07, 2017 11:54
[2017-10-07 13:06] LABS: RHEUMATOID FACTOR TRIGGER LESS THAN 10.0 IU/ML (0.0-14.9)
--- NOTE | 2017-10-07 14:06 | RADRPT ---
EXAM DATE/TIME: 10/07/2017 12:18 [facility] COMPARISON: CT BRAIN W/O CONTRAST, July 05, 2017, 2:26. INDICATIONS : Trauma, patient fell and hit head. RADIATION DOSE: 56.36 CTDIvol (mGy) MEDICAL HISTORY : Hypertension. Diabetes mellitus type 1. Sickle Cell disease.Uterine ca SURGICAL HISTORY : Cervical fusion ENCOUNTER: Initial ACUITY: 1 day PAIN SCALE: 8/10 LOCATION: cranial TECHNIQUE: Multiple contiguous axial images were obtained of the head. Using automated exposure control and adj ustment of the mA and/or kV according to patient size, radiation dose was kept as low as reasonably a chievable to obtain optimal diagnostic quality images. DICOM format image data is available electro nically for review and comparison. FINDINGS: CEREBRUM: The ventricles are normal for age. No evidence of midline shift, mass lesion, hemorrhage or acute in farction. No extra-axial fluid collections are seen. POSTERIOR FOSSA: The cerebellum and brainstem are intact. The 4th ventricle is midline. The cerebellopontine angle i s unremarkable. EXTRACRANIAL: The visualized portion of the orbits is intact. SKULL: The calvaria is intact. No evidence of skull fracture. CONCLUSION: Stable evaluation of the brain. No evidence of acute infarct, hemorrhage, mass, edema or fracture. Froilan Rodríguez MD on October 07, 2017 at 14:03 Board Certified Radiologist. This report was verified electronically.
--- NOTE | 2017-10-07 14:25 | RADRPT ---
EXAM DATE/TIME: 10/07/2017 12:18 [facility] COMPARISON: CT CERVICAL SPINE W/O CONTRAST, September 28, 2016, 13:02. INDICATIONS : Trauma, fall. RADIATION DOSE: 37.41 CTDIvol (mGy) MEDICAL HISTORY : Seizures. Cardiovascular disease Hypertension.COPD, Diabetes SURGICAL HISTORY : None. ENCOUNTER: Initial ACUITY: 1 day PAIN SCALE: 4/10 LOCATION: neck TECHNIQUE: Volumetric scanning of the cervical spine was performed. Multiplanar reconstructions in the sagittal, coronal and oblique axial planes were performed. Using automated exposure control and adjustment o f the mA and/or kV according to patient size, radiation dose was kept as low as reasonably achievable to obtain optimal diagnostic quality images. DICOM format image data is available electronically f or review and comparison. FINDINGS: The cervical spine is stable in appearance. Craniocervical and cervical vertebral body alignment remain intact. Postsurgical changes following anterior cervical fusion from C3-C7 are again noted. There is an anter ior fusion plate, fixation screws and vertebral body changes. This is remains satisfactory alignment. Mild degenerative disc disease is noted at C2-3 and C7-T1. CONCLUSION: Stable cervical spine status post anterior cervical fusion from C3-C7. No acute process. Froilan Rodríguez MD on October 07, 2017 at 14:05 Board Certified Radiologist. This report was verified electronically.
[2017-10-07] MEDS: ARIPiprazole 15 MG TAB PO SCH (15:08)
--- NOTE | 2017-10-07 18:08 | EKG ---
Date Performed: 10/06/2017 Time Performed: 09:01:14 PTAGE: 51 years EKG: Sinus rhythm POSSIBLE LEFT ATRIAL ENLARGEMENT BORDERLINE LEFT AXIS DEVIATION POSSIBLE LEFT VENTRICULAR HYPERTROPH Y NONSPECIFIC T-WAVE ABNORMALITY Compared to previous tracing, sinus rate is slower ABNORMAL ECG PREVIOUS TRACING : 07/08/17 @ 0844 DOCTOR: Norm Currie Interpretating Date/Time 10/07/2017 18:07:04
--- NOTE | 2017-10-07 18:08 | EKG ---
Date Performed: 10/06/2017 Time Performed: 15:41:41 PTAGE: 51 years EKG: Sinus rhythm POSSIBLE LEFT ATRIAL ENLARGEMENT POSSIBLE LEFT VENTRICULAR HYPERTROPHY NONSPECIFIC T-WAVE ABNORMALIT Y Compared to prior tracing no significant change ABNORMAL ECG PREVIOUS TRACING : 10/06/2017 09.01 DOCTOR: Norm Currie Interpretating Date/Time 10/07/2017 18:07:31
--- NOTE | 2017-10-07 18:09 | EKG ---
Date Performed: 10/06/2017 Time Performed: 21:13:07 PTAGE: 51 years EKG: Sinus rhythm POSSIBLE LEFT ATRIAL ENLARGEMENT POSSIBLE LEFT VENTRICULAR HYPERTROPHY NONSPECIFIC T-WAVE ABNORMALIT Y Compared to prior tracing no significant change ABNORMAL ECG PREVIOUS TRACING : 10/06/2017 15.41 DOCTOR: Norm Currie Interpretating Date/Time 10/07/2017 18:07:54
[2017-10-07] MEDS: MONTELUKAST SODIUM 10 MG TAB PO SCH (21:38)
[2017-10-07] MEDS: PRAVASTATIN SOD 20 MG TAB PO SCH (21:40)
[2017-10-08] VITALS: PULSE 75
[2017-10-08] MEDS: ACETAMINOPHEN 325 MG TAB PO PRN (00:28)
[2017-10-08 03:30] VITALS: BP 184/82; PULSE 77; RESP 18; TEMP 98.5; O2SAT 98
[2017-10-08] MEDS: ACETAMINOPHEN/HYDROcodone 325 MG/10 MG TAB PO PRN (03:50)
[2017-10-08] MEDS: ENALAPRILAT 1.25 MG/ML VIAL IV PUSH PRN (03:51)
[2017-10-08 03:54] VITALS: PULSE 75
[2017-10-08 06:17] LABS: HEMATOCRIT 37.3 % (35.0-46.0); MEAN CELL VOLUME 82.5 FL (80.0-100.0); MEAN CORPUSCULAR HEMOGLOBIN 28.1 PG (27.0-34.0); PLATELET COUNT 321 TH/MM3 (150-450); RED BLOOD COUNT 4.52 MIL/MM3 (4.00-5.30); RED CELL DISTRIBUTION WIDTH 13.6 % (11.6-17.2); REVIEW FLAG FINAL; WHITE BLOOD COUNT 6.7 TH/MM3 (4.0-11.0)
[2017-10-08 06:39] LABS: BICARBONATE 27.3 MEQ/L (21.0-32.0); POTASSIUM 3.3 MEQ/L (3.5-5.1)
[2017-10-08 07:39] VITALS: BP 175/84; PULSE 73; RESP 22; TEMP 98.5; O2SAT 96
[2017-10-08] MEDS: SODIUM CHLOR 0.9% 1000 ML INJ 1,000 ML IV SCH (08:25)
[2017-10-08] MEDS: INSULIN DETEMIR 100 UNITS/ML VIAL SQ SCH (09:06)
[2017-10-08] MEDS: INSULIN ASPART SUPPLEMENTAL SCALE SQ SCH (09:06)
[2017-10-08] MEDS ORDERED: WALKER WHEELS/F1 MIS (09:10)
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
[2017-10-08] MEDS: DOCUSATE SODIUM 50 MG/SENNA 8.6 MG TAB PO SCH (09:52)
[2017-10-08] MEDS: PHENYTOIN SODIUM 100 MG CAP PO SCH (09:52)
[2017-10-08] MEDS: PANTOPRAZOLE SOD 40 MG DELAYED RELEASE TAB PO SCH (09:53)
[2017-10-08] MEDS: METOPROLOL TARTRATE 100 MG TAB PO SCH (09:53)
[2017-10-08] MEDS: RIVAROXABAN 20 MG TAB PO SCH (09:53)
[2017-10-08] MEDS: SPIRONOLACTONE 25 MG TAB PO SCH (09:53)
[2017-10-08] MEDS: ARIPiprazole 15 MG TAB PO SCH (09:53)
[2017-10-08] MEDS: LISINOPRIL 20 MG TAB PO SCH (09:54)
[2017-10-08] MEDS: HYDROCHLOROTHIAZIDE 25 MG TAB PO SCH (09:54)
[2017-10-08] MEDS: ASPIRIN 81 MG CHEW TAB CHEW SCH (09:54)
[2017-10-08] MEDS: BUDESONIDE-FORMOTEROL 160/4.5 MCG INHALER INH SCH (09:55)
[2017-10-08] MEDS: SODIUM CHLORIDE 0.9% FLUSH 10 ML FLUSH IV FLUSH SCH (09:55)
[2017-10-08] MEDS ORDERED: HYDR-3583 PO (10:16)
--- NOTE | 2017-10-08 10:38 | HHI.DCPOC ---
Discharge Care Plan Diagnosis: (1) Chronic pain (2) Uncontrolled diabetes mellitus (3) Resistant hypertension (4) Generalized pain (5) Myalgia Goals to Promote Your Health * To prevent worsening of your condition and complications * To maintain your health at the optimal level Directions to Meet Your Goals Take your medications as prescribed Follow your dietary instruction Follow activity as directed Keep your appointments as scheduled Take your immunizations and boosters as scheduled If your symptoms worsen call your PCP, if no PCP go to Urgent Care Center or Emergency Room Smoking is Dangerous to Your Health. Avoid second hand smoke Call the 24-hour hour crisis hotline for domestic abuse at Norm Mcginnis MD, R3 Oct 08, 2017 10:38
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
[2017-10-08] MEDS ORDERED: POTASSIUM CHLORIDE 10 MEQ CONTROLLED RELEASE TAB PO ONE (10:45)
[2017-10-12 07:50] LABS: BETA2 GLYCOPROTEIN I AB IGA LESS THAN 9.0 SAU (< OR = 20)
[2017-10-14] MEDS ORDERED: BLOOD GLUCOSE T1 TES (14:32)
== END 2017-10-08 12:21 | disposition home or self-care (01) ==
LOC: NEPE 08:48 → NEDA 10:30 → NEPFCDU 11:15
PROVIDERS: ADMIT Family Medicine; ATTEND Family Medicine
DX: R07.89 Other chest pain (principal); R51 Headache; R42 Dizziness and giddiness; H53.149 Visual discomfort, unspecified; R11.0 Nausea; I25.10 Atherosclerotic heart disease of native coronary artery without angina pectoris; I11.0 Hypertensive heart disease with heart failure; I50.9 Heart failure, unspecified; E78.00 Pure hypercholesterolemia, unspecified; J44.9 Chronic obstructive pulmonary disease, unspecified; E78.5 Hyperlipidemia, unspecified; G40.909 Epilepsy, unspecified, not intractable, without status epilepticus; I25.2 Old myocardial infarction; E10.40 Type 1 diabetes mellitus with diabetic neuropathy, unspecified; E10.65 Type 1 diabetes mellitus with hyperglycemia; J45.909 Unspecified asthma, uncomplicated; D57.3 Sickle-cell trait; R94.31 Abnormal electrocardiogram [ECG] [EKG]; K21.9 Gastro-esophageal reflux disease without esophagitis; I69.354 Hemiplegia and hemiparesis following cerebral infarction affecting left non-dominant side; M79.1 Myalgia; G89.4 Chronic pain syndrome; F32.9 Major depressive disorder, single episode, unspecified; F17.200 Nicotine dependence, unspecified, uncomplicated; M19.90 Unspecified osteoarthritis, unspecified site; Z98.1 Arthrodesis status; Z85.42 Personal history of malignant neoplasm of other parts of uterus; Z95.5 Presence of coronary angioplasty implant and graft; Z86.73 Personal history of transient ischemic attack (TIA), and cerebral infarction without residual deficits
CPT/HCPCS: 70450; 71010; 72125; 80048; 81001; 82550; 82948; 83874; 84484; 85025; 85027; 85610; 85613; 85652; 85730; 86038; 86140; 86146; 86147; 86160; 86430; 93005; 96360; 96361; 96372; 97110; 97116; 97162; 99285; G0378; G8987; G8988; J1644; J1815; J7030

== ENCOUNTER 2017-11-17 11:32 | Emergency (ER) | payer MEDICAID ==
[2017-11-17] MEDS: RESP: ALBUTEROL 2.5 MG/IPRATROPIUM 0.5 MG NEB (SCH) INH (12:30)
[2017-11-17 12:56] LABS: AUTOMATED NEUTROPHIL # 2.8 TH/MM3 (1.8-7.7); BASOPHIL # 0.1 TH/MM3 (0-0.2); BASOPHIL % 0.9 % (0.0-2.0); EOSINOPHIL # 0.1 TH/MM3 (0-0.4); EOSINOPHIL % 0.9 % (0.0-4.0); HEMATOCRIT 38.7 % (35.0-46.0); HEMO FLAGS DIFF FINAL; HEMOGLOBIN 12.9 GM/DL (11.6-15.3); LYMPH % 44.4 % (9.0-44.0); LYMPHOCYTE # 2.5 TH/MM3 (1.0-4.8); MEAN CELL VOLUME 82.6 FL (80.0-100.0); MEAN CORPUSCULAR HEMOGLOBIN 27.5 PG (27.0-34.0); MEAN CORPUSCULAR HGB CONC 33.3 % (32.0-36.0); MEAN PLATELET VOLUME 8.3 FL (7.0-11.0); MONO % 4.7 % (0.0-8.0); MONOCYTE # 0.3 TH/MM3 (0-0.9); NEUT % 49.1 % (16.0-70.0); PLATELET COUNT 300 TH/MM3 (150-450); RED BLOOD COUNT 4.69 MIL/MM3 (4.00-5.30); RED CELL DISTRIBUTION WIDTH 13.5 % (11.6-17.2); WHITE BLOOD COUNT 5.6 TH/MM3 (4.0-11.0)
[2017-11-17 13:01] LABS: PROTHROMBIN TIME - PATIENT 10.3 SEC (9.8-11.6)
[2017-11-17 13:29] LABS: ALBUMIN 3.3 GM/DL (3.4-5.0); ALKALINE PHOSPHATASE 145 U/L (45-117); ALT (GPT) 12 U/L (10-53); ANION GAP 6 MEQ/L (5-15); AST (GOT) 10 U/L (15-37); BLOOD UREA NITROGEN 11 MG/DL (7-18); CALCIUM 9.1 MG/DL (8.5-10.1); CHLORIDE 99 MEQ/L (98-107); CREATININE 1.09 MG/DL (0.50-1.00); GLOMERULAR FILTRATION RATE 64 ML/MIN (>89); POTASSIUM 3.3 MEQ/L (3.5-5.1); SODIUM (NA) 133 MEQ/L (136-145); TOTAL BILIRUBIN ADULT 0.3 MG/DL (0.2-1.0); TOTAL PROTEIN 7.5 GM/DL (6.4-8.2); TROPONIN I LESS THAN 0.02 NG/ML (0.02-0.05)
[2017-11-17 13:34] LABS: GLUCOSE,RANDOM 437 MG/DL (74-106)
[2017-11-17] MEDS: SODIUM CHLOR 0.9% 1000 ML INJ 1,000 ML IV (14:43)
[2017-11-17] MEDS: INSULIN HUMAN REGULAR 1,000 UNITS/10 ML VIAL IV PUSH (14:43)
[2017-11-17] MEDS: IOHEXOL 350 MG/ML 10 ML VIAL (for RAD DIAG) IVCONTRAST (15:00)
[2017-11-17] MEDS: methylPREDNISolone SOD SUCC 125 MG/2 ML VIAL (15:18)
[2017-11-17 15:46] LABS: TROPONIN I LESS THAN 0.02 NG/ML (0.02-0.05)
== END 2017-11-17 16:53 | disposition home or self-care (01) ==
LOC: NEPC 11:32
DX: J09.X2 Influenza due to identified novel influenza A virus with other respiratory manifestations (principal); I51.7 Cardiomegaly; R94.31 Abnormal electrocardiogram [ECG] [EKG]; I25.10 Atherosclerotic heart disease of native coronary artery without angina pectoris; J44.9 Chronic obstructive pulmonary disease, unspecified; I10 Essential (primary) hypertension; E11.9 Type 2 diabetes mellitus without complications; Z86.73 Personal history of transient ischemic attack (TIA), and cerebral infarction without residual deficits; Z86.718 Personal history of other venous thrombosis and embolism
CPT/HCPCS: 71275; 80053; 84484; 85025; 85610; 87804; 87804-59; 93005; 94664; 96361; 96374; 99285-25

== ENCOUNTER 2017-11-25 17:48 | Emergency (ER) | payer MEDICAID ==
[~2017-11-25] VITALS: Ht 165.1 cm; Wt 72.7 kg
[~2017-11-25 17:48] MED LIST changes: +AMBI10TA PO; -BD I1MIS10; -BD L33MI; -BLOOD GLUCOSE T1 TES; +BUSP5TAB PO; -DILA100C PO; +HYDR-3801 PO; -HYDR25TA5 PO; +HYDR50CA PO; -LIDO2GEL11 TOPICAL; +LISI40TA PO; +LOSA25TA PO; +LYRI150C PO; -LYRI75CA PO; +MORP1CAP79 PO; -NEBULIZER1 MI1; -NICO21DI2 T-DERMAL; +ONDA4TAB7 SL; +OSEL75 PO; +OXYC1TAB36 PO; +PARO30TA2 PO; +PHEN100C PO; -SPIR25 PO; +TIZA4CAP3 PO; -XARE20TA PO; +ZYLE0.5S EACH EYE
[2017-11-25 17:51] VITALS: BP 217/102; PULSE 90; RESP 24; TEMP 99.5; O2SAT 100
[2017-11-25] MEDS ORDERED: SODIUM CHLORIDE 0.9% FLUSH 10 ML FLUSH IVF PRN (18:15)
[2017-11-25 18:47] LABS: AUTOMATED NEUTROPHIL # 2.9 TH/MM3 (1.8-7.7); BASOPHIL % 0.4 % (0.0-2.0); EOSINOPHIL # 0.1 TH/MM3 (0-0.4); EOSINOPHIL % 1.2 % (0.0-4.0); HEMATOCRIT 36.9 % (35.0-46.0); HEMOGLOBIN 12.5 GM/DL (11.6-15.3); LYMPH % 44.4 % (9.0-44.0); LYMPHOCYTE # 2.6 TH/MM3 (1.0-4.8); MEAN CELL VOLUME 81.9 FL (80.0-100.0); MEAN CORPUSCULAR HEMOGLOBIN 27.9 PG (27.0-34.0); MONO % 5.2 % (0.0-8.0); MONOCYTE # 0.3 TH/MM3 (0-0.9); NEUT % 48.8 % (16.0-70.0); PLATELET COUNT 328 TH/MM3 (150-450); RED CELL DISTRIBUTION WIDTH 13.4 % (11.6-17.2); WHITE BLOOD COUNT 5.9 TH/MM3 (4.0-11.0)
[2017-11-25 19:05] LABS: PROTHROMBIN TIME - PATIENT 10.3 SEC (9.8-11.6)
--- NOTE | 2017-11-25 19:12 | RADRPT ---
EXAM DATE/TIME: 11/25/2017 18:28 [facility] COMPARISON: No previous studies available for comparison. INDICATIONS : Shortness of breath and right sided chest pain. MEDICAL HISTORY : Stroke. Congestive heart failure. uterine cancer. SURGICAL HISTORY : Hysterectomy. ENCOUNTER: Initial ACUITY: 1 day PAIN SCORE: 4/10 LOCATION: Bilateral chest FINDINGS: PA and lateral views of the chest demonstrate the lungs to be symmetrically aerated without evidence of mass, infiltrate or effusion. The cardiomediastinal contours are unremarkable. Osseous structure s are intact. CONCLUSION: No acute disease. Nadir Tanner MD on November 25, 2017 at 19:09 Board Certified Radiologist. This report was verified electronically.
[2017-11-25 19:16] LABS: BICARBONATE 32.6 MEQ/L (21.0-32.0); BLOOD UREA NITROGEN 9 MG/DL (7-18); CALCIUM 9.1 MG/DL (8.5-10.1); CHLORIDE 99 MEQ/L (98-107); CREATININE 1.01 MG/DL (0.50-1.00); GLOMERULAR FILTRATION RATE 69 ML/MIN (>89); MAGNESIUM 2.1 MG/DL (1.5-2.5); SODIUM (NA) 136 MEQ/L (136-145); TROPONIN I LESS THAN 0.02 NG/ML (0.02-0.05)
[2017-11-25 19:28] LABS: GLUCOSE,RANDOM 456 MG/DL (74-106)
--- NOTE | 2017-11-25 20:16 | PD ---
HPI Chief Complaint: Respiratory Symptoms Time Seen by Provider: 19:55 Travel History International Travel<30 days: No Contact w/Intl Traveler<30days: No Traveled to known affect area: No History of Present Illness HPI 51-year-old female with PMH of DM, pulmonary nodules presents to the ED for evaluation of right-sided lateral chest pain. Pleuritic in nature, worsened by deep breathing and coughing. Rated 6/10. She states that she has had this pain for about a week since she was diagnosed with influenza. She states that she is recovering from the flu but this pain is not resolved. She denies fever , chills, chest pain, palpitations, nausea, vomiting, changes in bowel habits, dysuria. She states that her blood sugars have been in the 400s for weeks. She states that she uses Levemir and sliding scale NovoLog. Last dose this morning. PFSH Past Medical History Hx Anticoagulant Therapy: Yes Arthritis: Yes Asthma: Yes Autoimmune Disease: No Blood Disorders: No Anxiety: Yes Depression: Yes Heart Rhythm Problems: No Cancer: Yes (UTERINE) Cardiac Catheterization: Yes (X4) Cardiovascular Problems: Yes High Cholesterol: Yes Chemotherapy: No Chest Pain: Yes Congestive Heart Failure: Yes COPD: Yes Cerebrovascular Accident: Yes (3 TIA) Coronary Artery Disease: Yes Diabetes: Yes Patient Takes Glucophage: No Diminished Hearing: No Endocrine: Yes Gastrointestinal Disorders: Yes (GASTROPARESIS) GERD: Yes Genitourinary: No Headaches: No Hypertension: Yes Immune Disorder: No Implanted Vascular Access Dvce: No Musculoskeletal: Yes (chronic knee pain, chronic back pain) Neurologic: Yes (seizures) Psychiatric: Yes Reproductive: No Respiratory: Yes Immunizations Current: Yes Migraines: No Myocardial Infarction: Yes Radiation Therapy: No Seizures: Yes (2000,2001,2002) Sickle Cell Disease: Yes (SICKLE CELL TRAIT) Sleep Apnea: Yes Thyroid Disease: No Ulcer: Yes Tetanus Vaccination: < 5 Years Influenza Vaccination: Yes ?: Not Menopausal: Yes : 10 Para: 7 Miscarriage: 3 Past Surgical History Abdominal Surgery: Yes (GALL BLADDER) Body Medical Devices: rods and screws in neck Cardiac Surgery: Yes Section: Yes Cholecystectomy: Yes Coronary Stent: Yes (X2) Ear Surgery: No Endocrine Surgery: No Eye Surgery: No Genitourinary Surgery: No Gynecologic Surgery: Yes Hysterectomy: Yes Joint Replacement: Yes (left knee UPCOMING) Neurologic Surgery: Yes (NECK FUSED) Oral Surgery: No Thoracic Surgery: No Other Surgery: Yes (LEFT AXILLARY TUMOR REMOVED) Social History Alcohol Use: No Tobacco Use: Yes (10/31 ppd) Substance Use: No Allergies-Medications (Allergen,Severity, Reaction): Coded Allergies: ciprofloxacin (Unverified Allergy, Severe, SWELLING SOB, 11/25/17) erythromycin base (Unverified Allergy, Severe, SWELLING SOB, 11/25/17) tramadol (Unverified Allergy, Severe, rash, 11/25/17) vancomycin (Unverified Allergy, Severe, SWELLING AND SOB, 11/25/17) Reported Meds & Prescriptions Reported Meds & Active Scripts Active Levemir Inj (Insulin Detemir) 1,000 unit/ 10 ML Vial 60 Units SQ BID Do not mix with any other Insulin. Fluticasone Nasal [place] 50 Mcg/Act Naspr 50 Mcg EACH NARE DAILY 50 mcg/spray Singulair (Montelukast Sodium) 10 Mg Tab 10 Mg PO HS Atrovent HFA 12.9 GM Inh (Ipratropium [place]) 17 Mcg/Act Aer 2 Puff INH QID Proair Hfa 8.5 GM Inh (Albuterol Sulfate) 90 Mcg/Act Aer 2 Puff INH Q4-6H PRN 108 mcg/actuation Lisinopril 20 Mg Tab 40 Mg PO DAILY Abilify (Aripiprazole) 15 Mg Tab 15 Mg PO DAILY Omeprazole 40 Mg Cap 40 Mg PO DAILY Lovastatin 20 Mg Tab 20 Mg PO HS Novolog Inj (Insulin Aspart) 1,000 Unit/10 Ml Vial 0-25 Units SQ ACHS Max dose at bedtime:( )units; sugars less than 70,(0) units; sugars 150-199,(5) units; sugars 200-249,(10) units; sugars 250-299,(15) units; sugars 300-349,(20)units; sugars greater than 349,(25)units Metoprolol Tartrate 100 Mg Tab 100 Mg PO BID Albuterol Neb (Albuterol Sulfate) 2.5 Mg/3 Ml Neb 2.5 Mg NEB Q4HR NEB PRN Advair Diskus Inh (Fluticasone-Salmeterol Inh) 250-50 Mcg/Blist Aer 1 Puff INH BID Rinse mouth after use. Triamcinolone Topical (Triamcinolone Acetonide) 0.1% Cream 1 Applic TOPICAL BID Aspirin 81 (Aspirin) 81 Mg Tabdr 81 Mg PO EVERY OTHER DAY Reported Zylet Opth Drops (Loteprednol-Tobramycin Opth Drops) 0.5-0.3 % Soln 1-2 Drop EACH EYE Q6H Losartan (Losartan Potassium) 25 Mg Tab 25 Mg PO DAILY Hydralazine (Hydralazine HCl) 100 Mg Tab 25 Mg PO BID Take with meals Hydroxyzine Pamoate 50 Mg Cap 50 Mg PO BID Phenytoin Extended 100 Mg Cap 100 Mg PO TID Buspirone (Buspirone HCl) 5 Mg Tab 5 Mg PO BID Paroxetine (Paroxetine HCl) 30 Mg Tab 30 Mg PO DAILY Embeda (Morphine-Naltrexone ER) 20-0.8 Mg Caper 1 Cap PO DAILY Oxycodone-Acetaminophen 10-325 mg Tab 1 Tab PO Q6H PRN Lyrica (Pregabalin) 150 Mg Cap 150 Mg PO BID Tizanidine (Tizanidine HCl) 4 Mg Cap 4 Mg PO TID Ambien (Zolpidem Tartrate) 10 Mg Tab 10 Mg PO HS PRN Ondansetron Odt 4 Mg Tab 4 Mg SL Q8HR PRN Norvasc (Amlodipine Besylate) 10 Mg Tab 10 Mg PO DAILY Review of Systems Except as stated in HPI: all other systems reviewed are Neg Physical Exam Narrative GENERAL: Well-nourished, well-developed -[place] female in no acute distress. SKIN: Focused skin assessment warm/dry. Several subcentimeter areas of excoriation on the back with localized erythema and crusting. Suspicious for bedbug bites. HEAD: Normocephalic. EYES: No scleral icterus. No injection or drainage. NECK: Supple, trachea midline. No JVD or lymphadenopathy. CARDIOVASCULAR: Regular rate and rhythm without murmurs, gallops, or rubs. CHEST: Point tenderness in the right lateral rib cage, otherwise nontender throughout without deformity or crepitus. RESPIRATORY: Breath sounds clear and equal bilaterally. No accessory muscle use. GASTROINTESTINAL: Abdomen soft, non-tender, nondistended. Active bowel sounds. MUSCULOSKELETAL: No cyanosis, or edema. BACK: Nontender without obvious deformity. No CVA tenderness. Data Data Last Documented VS Vital Signs Date Time Temp Pulse Resp B/P (MAP) Pulse Ox O2 Delivery O2 Flow Rate FiO2 11/25/17 23:30 11/25/17 23:26 93 20 98 Room Air 11/25/17 17:51 99.5 Orders Orders Complete Blood Count With Diff (11/25/17 18:04) Basic Metabolic Panel (Bmp) (11/25/17 18:04) Act Partial Throm Time (Ptt) (11/25/17 18:04) Prothrombin Time / Inr (Pt) (11/25/17 18:04) Magnesium (Mg) (11/25/17 18:04) Ckmb (Isoenzyme) Profile (11/25/17 18:04) Troponin I (11/25/17 18:04) Electrocardiogram (11/25/17 18:04) Chest, Pa & Lat (11/25/17 18:04) Sodium Chloride 0.9% Flush (Ns Flush) (11/25/17 18:15) ^ Insert Iv (11/25/17 20:16) Sodium Chlor 0.9% 1000 Ml Inj (Ns 1000 M (11/25/17 20:30) Sodium Chlor 0.9% 1000 Ml Inj (Ns 1000 M (11/25/17 20:45) Insulin Human Regular Inj (Novolin R Inj (11/25/17 20:45) Clonidine (Catapres) (11/25/17 22:15) Blood Glucose (11/25/17 22:12) Ed Discharge Order (11/25/17 22:52) Labs Laboratory Tests Test 11/25/17 18:17 White Blood Count 5.9 TH/MM3 Red Blood Count 4.50 MIL/MM3 Hemoglobin 12.5 GM/DL Hematocrit 36.9 % Mean Corpuscular Volume 81.9 FL Mean Corpuscular Hemoglobin 27.9 PG Mean Corpuscular Hemoglobin Concent 34.0 % Red Cell Distribution Width 13.4 % Platelet Count 328 TH/MM3 Mean Platelet Volume 8.0 FL Neutrophils (%) (Auto) 48.8 % Lymphocytes (%) (Auto) 44.4 % Monocytes (%) (Auto) 5.2 % Eosinophils (%) (Auto) 1.2 % Basophils (%) (Auto) 0.4 % Neutrophils # (Auto) 2.9 TH/MM3 Lymphocytes # (Auto) 2.6 TH/MM3 Monocytes # (Auto) 0.3 TH/MM3 Eosinophils # (Auto) 0.1 TH/MM3 Basophils # (Auto) 0.0 TH/MM3 CBC Comment DIFF FINAL Differential Comment Prothrombin Time 10.3 SEC Prothromb Time International Ratio 1.0 RATIO Activated Partial Thromboplast Time 30.8 SEC Blood Urea Nitrogen 9 MG/DL Creatinine 1.01 MG/DL Random Glucose 456 MG/DL Calcium Level 9.1 MG/DL Magnesium Level 2.1 MG/DL Sodium Level 136 MEQ/L Potassium Level 3.6 MEQ/L Chloride Level 99 MEQ/L Carbon Dioxide Level 32.6 MEQ/L Anion Gap 4 MEQ/L Estimat Glomerular Filtration Rate 69 ML/MIN Total Creatine Kinase 89 U/L Troponin I LESS THAN 0.02 NG/ML MDM Medical Decision Making Medical Screen Exam Complete: Yes Emergency Medical Condition: Yes Differential Diagnosis Pleuritic chest pain versus pneumonia versus PE versus musculoskeletal pain versus other Narrative Course 51-year-old female with PMH of DM, pulmonary nodules presents to the ED for evaluation of right-sided lateral chest pain. Pleuritic in nature, worsened by deep breathing and coughing. She states that she has had this pain for about a week since she was diagnosed with influenza. She states that she is recovering from the flu but this pain is not resolved. She denies fever, chills, chest pain, palpitations, nausea, vomiting, changes in bowel habits, dysuria. She states that her blood sugars have been in the 400s for weeks. She states that she uses Levemir and sliding scale NovoLog. Last dose this morning. Vitals reviewed. Patient's hypertensive on presentation. Physical exam reveals a nontoxic-appearing -[place] female in no acute distress. She has some point tenderness on the lateral right rib cage but the exam is otherwise unremarkable. Blood glucose 400+ on fingerstick. She was administered 2 L IV fluid, 10 units subcutaneous insulin. EKG rate 86, sinus rhythm. IN interval 160, QRS 81, QTC 414. Left ventricular hypertrophy. ST changes in V1 through V3. This is old per record review. CXR: No acute disease per radiology read. Cardiac enzymes negative 1. Lab work reveals elevated blood glucose but is otherwise unremarkable. Patient remains hypertensive. She was administered 0.1 clonidine. On recheck she is sleeping. Recheck of blood glucose and blood pressure trending down. Review of her record reveals history of noncompliance. I do not think she needs to be admitted to the hospital. She is instructed to continue her at-home medications as they are prescribed, follow up at the [facility] to reestablish primary care. She indicated understanding of instructions and is agreeable to the care plan. The patient is stable and discharged home. Diagnosis Primary Impression: Pleuritic chest pain Additional Impressions: Hyperglycemia due to type 2 diabetes mellitus Qualified Codes: E11.65 - Type 2 diabetes mellitus with hyperglycemia; Z79.4 - supervisor intermediates (current) use of insulin Hypertension Qualified Codes: I10 - Essential (primary) hypertension Referrals: [employer] [facility] Patient Instructions: General Instructions, Pleurisy (ED) Additional Instructions: Rest, hydrate. Take your AT HOME medications as they are prescribed. Follow up with the [facility] to establish new primary care. Return to the ED for any urgent or emergent medical condition. Disposition: 01 DISCHARGE HOME Condition: Stable Eli Limon Nov 25, 2017 20:16
[2017-11-25] MEDS ORDERED: SODIUM CHLOR 0.9% 1000 ML INJ 1,000 ML IV ONE ×2 (20:30→20:45)
[2017-11-25] MEDS ORDERED: INSULIN HUMAN REGULAR 1,000 UNITS/10 ML VIAL SQ ONE (20:45)
[2017-11-25 21:45] VITALS: BP 213/93; PULSE 90; RESP 18; O2SAT 98
[2017-11-25] MEDS ORDERED: cloNIDine HCL 0.1 MG TAB PO ONE (22:15)
[2017-11-25 23:22] VITALS: BP 206/93
[2017-11-25 23:26] VITALS: BP 187/86; PULSE 93; RESP 20; O2SAT 98
--- NOTE | 2017-11-27 00:50 | EKG ---
Date Performed: 11/25/2017 Time Performed: 18:12:42 PTAGE: 51 years EKG: Sinus rhythm LEFT ATRIAL ENLARGEMENT LEFT VENTRICULAR HYPERTROPHY AND ST-T CHANGE ABNORMAL ECG PREVIOUS TRACING : 11/17/2017 12.59 Since the prior tracing, there has been no significant sotelo DOCTOR: Jigar Wells Interpretating Date/Time 11/27/2017 00:50:43
== END 2017-11-25 23:42 | disposition home or self-care (01) ==
LOC: NEPE 17:48
DX: R07.81 Pleurodynia (principal); E11.65 Type 2 diabetes mellitus with hyperglycemia; I11.0 Hypertensive heart disease with heart failure; I50.9 Heart failure, unspecified; F32.9 Major depressive disorder, single episode, unspecified; K21.9 Gastro-esophageal reflux disease without esophagitis; I25.10 Atherosclerotic heart disease of native coronary artery without angina pectoris; I25.2 Old myocardial infarction; J44.9 Chronic obstructive pulmonary disease, unspecified; E78.00 Pure hypercholesterolemia, unspecified; Z95.5 Presence of coronary angioplasty implant and graft; Z85.42 Personal history of malignant neoplasm of other parts of uterus; Z86.73 Personal history of transient ischemic attack (TIA), and cerebral infarction without residual deficits; Z79.4 Long term (current) use of insulin; F17.210 Nicotine dependence, cigarettes, uncomplicated
CPT/HCPCS: 71046; 80048; 82550; 83735; 84484; 85025; 85610; 85730; 93005; 96360; 96361; 96372; 99285; J1815; J7030

== ENCOUNTER 2018-01-25 21:37 | Observation (INO) | payer MEDICAID ==
[~2018-01-25] VITALS: Ht 165.1 cm; Wt 70.3 kg
[~2018-01-25 21:37] MED LIST changes: -LISI40TA PO; -OSEL75 PO
[2018-01-25 21:43] VITALS: BP 226/109; PULSE 92; RESP 20; TEMP 98; O2SAT 98
[2018-01-25 21:52] VITALS: BP 222/106; PULSE 84; RESP 20; TEMP 98; O2SAT 98
[2018-01-25 21:57] VITALS: BP_SYST 200; BP_SYST 206; BP_DIAS 100; BP_DIAS 102; PULSE 84; RESP 20; TEMP 98; O2SAT 98
[2018-01-25 21:58] VITALS: RESP 20
[2018-01-25] MEDS ORDERED: NITROGLYCERIN 2% OINT 1 GM PACKET TOPICAL ONE (22:00)
[2018-01-25] MEDS ORDERED: NITROGLYCERIN 0.4 MG SL 25 TABS/BTL SL SCH (22:00)
[2018-01-25] MEDS ORDERED: MUPIROCIN 2% CREAM 15 GM TOPICAL ONE (22:00)
[2018-01-25] MEDS ORDERED: MORPHINE SULFATE 2 MG/ML SYRINGE IV PUSH ONE (22:00)
[2018-01-25] MEDS ORDERED: ONDANSETRON HCL 4 MG/2 ML VIAL IV PUSH ONE (22:00)
[2018-01-25] MEDS ORDERED: SODIUM CHLORIDE 0.9% FLUSH 10 ML FLUSH IVF PRN (22:00)
--- NOTE | 2018-01-25 22:08 | PD ---
HPI Chief Complaint: Chest Pain Time Seen by Provider: 21:41 Travel History International Travel<30 days: No Contact w/Intl Traveler<30days: No Traveled to known affect area: No History of Present Illness HPI Patient is a 52-year-old female presenting to the emergency department evaluation of left anterior chest wall pain that radiates to her left arm. She states it started this morning, waking her from her sleep. She also reports left lateral neck pain also radiates down her arm. She reports the pain is a 6 out of 10, there are no alleviating factors. Patient reports the pain is exacerbated with movement and deep breathing. Patient reports feeling short of breath, she denies any nausea vomiting or abdominal pain. PFSH Past Medical History Hx Anticoagulant Therapy: Yes Arthritis: Yes Asthma: Yes Anxiety: Yes Depression: Yes Cancer: Yes (UTERINE) Cardiac Catheterization: Yes (X4) High Cholesterol: Yes Chest Pain: Yes Congestive Heart Failure: Yes COPD: Yes Cerebrovascular Accident: Yes (3 TIA) Coronary Artery Disease: Yes Diabetes: Yes Endocrine: Yes Gastrointestinal Disorders: Yes (GASTROPARESIS) GERD: Yes Hypertension: Yes Immunizations Current: Yes Myocardial Infarction: Yes Seizures: Yes Sickle Cell Disease: Yes (SICKLE CELL TRAIT) Sleep Apnea: Yes Ulcer: Yes Tetanus Vaccination: < 5 Years Influenza Vaccination: Yes ?: Not Menopausal: Yes : 10 Para: 7 Miscarriage: 3 Past Surgical History Body Medical Devices: rods and screws in neck Cardiac Surgery: Yes Section: Yes Cholecystectomy: Yes Coronary Stent: Yes (X2) Gynecologic Surgery: Yes Hysterectomy: Yes Neurologic Surgery: Yes (NECK FUSED) Other Surgery: Yes (LEFT AXILLARY TUMOR REMOVED) Social History Alcohol Use: No Tobacco Use: Yes (E-CIG) Substance Use: No Allergies-Medications (Allergen,Severity, Reaction): Coded Allergies: ciprofloxacin (Unverified Allergy, Severe, SWELLING SOB, 01/25/18) erythromycin base (Unverified Allergy, Severe, SWELLING SOB, 01/25/18) tramadol (Unverified Allergy, Severe, rash, 01/25/18) vancomycin (Unverified Allergy, Severe, SWELLING AND SOB, 01/25/18) Reported Meds & Prescriptions Reported Meds & Active Scripts Active Levemir Inj (Insulin Detemir) 1,000 unit/ 10 ML Vial 60 Units SQ BID Do not mix with any other Insulin. Fluticasone Nasal [place] 50 Mcg/Act Naspr 50 Mcg EACH NARE DAILY 50 mcg/spray Singulair (Montelukast Sodium) 10 Mg Tab 10 Mg PO HS Atrovent HFA 12.9 GM Inh (Ipratropium [place]) 17 Mcg/Act Aer 2 Puff INH QID Proair Hfa 8.5 GM Inh (Albuterol Sulfate) 90 Mcg/Act Aer 2 Puff INH Q4-6H PRN 108 mcg/actuation Lisinopril 20 Mg Tab 40 Mg PO DAILY Abilify (Aripiprazole) 15 Mg Tab 15 Mg PO DAILY Omeprazole 40 Mg Cap 40 Mg PO DAILY Lovastatin 20 Mg Tab 20 Mg PO HS Novolog Inj (Insulin Aspart) 1,000 Unit/10 Ml Vial 0-25 Units SQ ACHS Max dose at bedtime:( )units; sugars less than 70,(0) units; sugars 150-199,(5) units; sugars 200-249,(10) units; sugars 250-299,(15) units; sugars 300-349,(20)units; sugars greater than 349,(25)units Metoprolol Tartrate 100 Mg Tab 100 Mg PO BID Albuterol Neb (Albuterol Sulfate) 2.5 Mg/3 Ml Neb 2.5 Mg NEB Q4HR NEB PRN Triamcinolone Topical (Triamcinolone Acetonide) 0.1% Cream 1 Applic TOPICAL BID Aspirin 81 (Aspirin) 81 Mg Tabdr 81 Mg PO EVERY OTHER DAY Reported Zylet Opth Drops (Loteprednol-Tobramycin Opth Drops) 0.5-0.3 % Soln 1-2 Drop EACH EYE Q6H Losartan (Losartan Potassium) 25 Mg Tab 25 Mg PO DAILY Hydralazine (Hydralazine HCl) 100 Mg Tab 25 Mg PO BID Take with meals Hydroxyzine Pamoate 50 Mg Cap 50 Mg PO BID Phenytoin Extended 100 Mg Cap 100 Mg PO TID Buspirone (Buspirone HCl) 5 Mg Tab 5 Mg PO BID Paroxetine (Paroxetine HCl) 30 Mg Tab 30 Mg PO DAILY Embeda (Morphine-Naltrexone ER) 20-0.8 Mg Caper 1 Cap PO DAILY Oxycodone-Acetaminophen 10-325 mg Tab 1 Tab PO Q6H PRN Lyrica (Pregabalin) 150 Mg Cap 150 Mg PO BID Tizanidine (Tizanidine HCl) 4 Mg Cap 4 Mg PO TID Ambien (Zolpidem Tartrate) 10 Mg Tab 10 Mg PO HS PRN Ondansetron Odt 4 Mg Tab 4 Mg SL Q8HR PRN Norvasc (Amlodipine Besylate) 10 Mg Tab 10 Mg PO DAILY Review of Systems Except as stated in HPI: all other systems reviewed are Neg Cardiovascular: Positive: Chest Pain or Discomfort Respiratory: Positive: Shortness of Breath Gastrointestinal: No: Nausea, Vomiting, Abdominal Pain Musculoskeletal: Positive: Myalgias Skin: Positive Itching, Positive Lesions Neurologic: No: Weakness, Dizziness, Focal Abnormalities Physical Exam Narrative GENERAL: Well-developed, well-nourished, alert -[place] female. Presenting in no acute distress. SKIN: Warm and dry. Superficial scab and open lesions to bilateral upper back and midthoracic area, no drainage noted. No induration. HEAD: Atraumatic. Normocephalic. EYES: Pupils equal and round. No scleral icterus. No injection or drainage. ENT: No nasal bleeding or discharge. Mucous membranes pink and moist. NECK: Trachea midline. No JVD. CARDIOVASCULAR: Regular rate and rhythm. RESPIRATORY: No accessory muscle use. Clear to auscultation. Breath sounds equal bilaterally. GASTROINTESTINAL: Abdomen soft, non-tender, nondistended. Hepatic and splenic margins not palpable. MUSCULOSKELETAL: Extremities without clubbing, cyanosis, or edema. No obvious deformities. NEUROLOGICAL: Awake and alert. No obvious cranial nerve deficits. Motor grossly within normal limits. Five out of 5 muscle strength in the arms and legs. Normal speech. PSYCHIATRIC: Appropriate mood and affect; insight and judgment normal. Data Data Last Documented VS Vital Signs Date Time Temp Pulse Resp B/P (MAP) Pulse Ox O2 Delivery O2 Flow Rate FiO2 01/25/18 22:32 20 01/25/18 21:58 01/25/18 21:57 Room Air 01/25/18 21:57 98.0 84 98 Orders Orders Electrocardiogram (01/25/18 21:53) Ckmb (Isoenzyme) Profile (01/25/18 21:53) Complete Blood Count With Diff (01/25/18 21:53) Comprehensive Metabolic Panel (01/25/18 21:53) Magnesium (Mg) (01/25/18 21:53) Prothrombin Time / Inr (Pt) (01/25/18 21:53) Act Partial Throm Time (Ptt) (01/25/18 21:53) Troponin I (01/25/18 21:53) Lipase (01/25/18 21:53) Chest, Single Ap (01/25/18 21:53) Ecg Monitoring (01/25/18 21:53) Bilateral Bp Monitoring (01/25/18 21:53) Iv Access Insert/Monitor (01/25/18 21:53) Oximetry (01/25/18 21:53) Oxygen Administration (01/25/18 21:53) Sodium Chloride 0.9% Flush (Ns Flush) (01/25/18 22:00) Nitroglycerin Sl (Nitrostat Sl) (01/25/18 22:00) Phenytoin (Dilantin) (01/25/18 21:53) Mupirocin 2% Cream (Bactroban 2% Cream) (01/25/18 22:00) Morphine Inj (Morphine Inj) (01/25/18 22:00) Ondansetron Inj (Zofran Inj) (01/25/18 22:00) Nitroglycerin 2% Oint (Nitroglycerin 2% (01/25/18 22:00) Aspirin Chew (Aspirin Chew) (01/25/18 22:15) Labs Laboratory Tests Test 01/25/18 22:00 White Blood Count 7.4 TH/MM3 Red Blood Count 4.55 MIL/MM3 Hemoglobin 12.9 GM/DL Hematocrit 37.4 % Mean Corpuscular Volume 82.2 FL Mean Corpuscular Hemoglobin 28.4 PG Mean Corpuscular Hemoglobin Concent 34.6 % Red Cell Distribution Width 13.6 % Platelet Count 289 TH/MM3 Mean Platelet Volume 8.5 FL Neutrophils (%) (Auto) 41.8 % Lymphocytes (%) (Auto) 51.8 % Monocytes (%) (Auto) 4.8 % Eosinophils (%) (Auto) 1.4 % Basophils (%) (Auto) 0.2 % Neutrophils # (Auto) 3.1 TH/MM3 Lymphocytes # (Auto) 3.9 TH/MM3 Monocytes # (Auto) 0.4 TH/MM3 Eosinophils # (Auto) 0.1 TH/MM3 Basophils # (Auto) 0.0 TH/MM3 CBC Comment DIFF FINAL Differential Comment Prothrombin Time 9.7 SEC Prothromb Time International Ratio 1.0 RATIO Activated Partial Thromboplast Time 28.2 SEC MDM Medical Decision Making Medical Screen Exam Complete: Yes Emergency Medical Condition: Yes Medical Record Reviewed: Yes Interpretation(s) Vital Signs Date Time Temp Pulse Resp B/P (MAP) Pulse Ox O2 Delivery O2 Flow Rate FiO2 01/25/18 21:58 20 01/25/18 21:57 Room Air 01/25/18 21:57 98.0 84 20 200/100 (133) 98 Room Air 206/102 (136) 01/25/18 21:52 98.0 84 20 222/106 (144) 98 Room Air 01/25/18 21:43 98.0 92 20 226/109 (148) 98 Differential Diagnosis ACS versus [place] versus NSTEMI versus metabolic abnormality versus muscle strain versus muscle spasm. Narrative Course Patient is a 52-year-old well-appearing female presenting for evaluation of left anterior chest wall pain. She also reported left arm pain however that appears to be coming from the neck. Patient is hypertensive on arrival, labs and imaging ordered and pending. Patient was given 3 sublingual nitro en route , morphine is ordered. Care of patient transferred to my attending physician who will determine patients disposition. Radha Perkins Jan 25, 2018 22:08
[2018-01-25] MEDS ORDERED: ASPIRIN 81 MG CHEW TAB CHEW ONE (22:15)
--- NOTE | 2018-01-25 22:29 | RADRPT ---
EXAM DATE/TIME: 01/25/2018 22:11 [facility] COMPARISON: CHEST SINGLE AP, October 06, 2017, 9:44. INDICATIONS : Patient complains of left sided chest/shoulder pain. MEDICAL HISTORY : Stroke. Congestive heart failure. uterine cancer. SURGICAL HISTORY : Hysterectomy. 2 cardiac stents. ENCOUNTER: Subsequent ACUITY: 1 day PAIN SCORE: 8/10 LOCATION: chest FINDINGS: A single view of the chest demonstrates the lungs to be symmetrically aerated without evidence of mas s, infiltrate or effusion. The cardiomediastinal contours are unremarkable. Osseous structures demo nstrate ACDF hardware of the cervical spine. CONCLUSION: No acute disease. Carlos Eduardo Bonner MD on January 25, 2018 at 22:27 Board Certified Radiologist. This report was verified electronically.
[2018-01-25 22:40] LABS: PROTHROMBIN TIME - PATIENT 9.7 SEC (9.8-11.6)
[2018-01-25 22:43] LABS: AUTOMATED NEUTROPHIL # 3.1 TH/MM3 (1.8-7.7); BASOPHIL % 0.2 % (0.0-2.0); EOSINOPHIL # 0.1 TH/MM3 (0-0.4); EOSINOPHIL % 1.4 % (0.0-4.0); HEMATOCRIT 37.4 % (35.0-46.0); HEMOGLOBIN 12.9 GM/DL (11.6-15.3); LYMPH % 51.8 % (9.0-44.0); LYMPHOCYTE # 3.9 TH/MM3 (1.0-4.8); MEAN CELL VOLUME 82.2 FL (80.0-100.0); MEAN CORPUSCULAR HEMOGLOBIN 28.4 PG (27.0-34.0); MEAN CORPUSCULAR HGB CONC 34.6 % (32.0-36.0); MEAN PLATELET VOLUME 8.5 FL (7.0-11.0); MONO % 4.8 % (0.0-8.0); MONOCYTE # 0.4 TH/MM3 (0-0.9); NEUT % 41.8 % (16.0-70.0); PLATELET COUNT 289 TH/MM3 (150-450); RED BLOOD COUNT 4.55 MIL/MM3 (4.00-5.30); RED CELL DISTRIBUTION WIDTH 13.6 % (11.6-17.2); WHITE BLOOD COUNT 7.4 TH/MM3 (4.0-11.0)
--- NOTE | 2018-01-25 22:49 | PD ---
Data Data Last Documented VS Vital Signs Date Time Temp Pulse Resp B/P (MAP) Pulse Ox O2 Delivery O2 Flow Rate FiO2 01/25/18 22:32 20 01/25/18 21:58 01/25/18 21:57 Room Air 01/25/18 21:57 98.0 84 98 Orders Orders Electrocardiogram (01/25/18 21:53) Ckmb (Isoenzyme) Profile (01/25/18 21:53) Complete Blood Count With Diff (01/25/18 21:53) Comprehensive Metabolic Panel (01/25/18 21:53) Magnesium (Mg) (01/25/18 21:53) Prothrombin Time / Inr (Pt) (01/25/18:53) Act Partial Throm Time (Ptt) (01/25/18:53) Troponin I (01/25/18:53) Lipase (01/25/18:53) Chest, Single Ap (01/25/18 21:53) Ecg Monitoring (01/25/18:53) Bilateral Bp Monitoring (01/25/18:53) Iv Access Insert/Monitor (01/25/18 21:53) Oximetry (01/25/18 21:53) Oxygen Administration (01/25/18 21:53) Sodium Chloride 0.9% Flush (Ns Flush) (01/25/18 22:00) Nitroglycerin Sl (Nitrostat Sl) (01/25/18 22:00) Phenytoin (Dilantin) (01/25/18 21:53) Mupirocin 2% Cream (Bactroban 2% Cream) (01/25/18 22:00) Morphine Inj (Morphine Inj) (01/25/18 22:00) Ondansetron Inj (Zofran Inj) (01/25/18 22:00) Nitroglycerin 2% Oint (Nitroglycerin 2% (01/25/18 22:00) Aspirin Chew (Aspirin Chew) (01/25/18 22:15) CKMB (01/25/18 22:00) CKMB% (01/25/18 22:00) Sodium Chlorid 0.9% 500 Ml Inj (Ns 500 M (01/25/18 23:15) Insulin Human Regular Inj (Novolin R Inj (01/25/18 23:15) Admit Order (Ed Use Only) (01/25/18 23:21) Labs Laboratory Tests Test 01/25/18 22:00 White Blood Count 7.4 TH/MM3 Red Blood Count 4.55 MIL/MM3 Hemoglobin 12.9 GM/DL Hematocrit 37.4 % Mean Corpuscular Volume 82.2 FL Mean Corpuscular Hemoglobin 28.4 PG Mean Corpuscular Hemoglobin Concent 34.6 % Red Cell Distribution Width 13.6 % Platelet Count 289 TH/MM3 Mean Platelet Volume 8.5 FL Neutrophils (%) (Auto) 41.8 % Lymphocytes (%) (Auto) 51.8 % Monocytes (%) (Auto) 4.8 % Eosinophils (%) (Auto) 1.4 % Basophils (%) (Auto) 0.2 % Neutrophils # (Auto) 3.1 TH/MM3 Lymphocytes # (Auto) 3.9 TH/MM3 Monocytes # (Auto) 0.4 TH/MM3 Eosinophils # (Auto) 0.1 TH/MM3 Basophils # (Auto) 0.0 TH/MM3 CBC Comment DIFF FINAL Differential Comment Prothrombin Time 9.7 SEC Prothromb Time International Ratio 1.0 RATIO Activated Partial Thromboplast Time 28.2 SEC Blood Urea Nitrogen 14 MG/DL Creatinine 0.99 MG/DL Random Glucose 392 MG/DL Total Protein 7.9 GM/DL Albumin 3.3 GM/DL Calcium Level 9.2 MG/DL Magnesium Level 2.0 MG/DL Alkaline Phosphatase 182 U/L Aspartate Amino Transf (AST/SGOT) 6 U/L Alanine Aminotransferase (ALT/SGPT) 12 U/L Total Bilirubin 0.2 MG/DL Sodium Level 137 MEQ/L Potassium Level 3.7 MEQ/L Chloride Level 101 MEQ/L Carbon Dioxide Level 31.0 MEQ/L Anion Gap 5 MEQ/L Estimat Glomerular Filtration Rate 71 ML/MIN Total Creatine Kinase 107 U/L Creatine Kinase MB 1.1 NG/ML Troponin I LESS THAN 0.02 NG/ML Lipase 107 U/L Phenytoin (Dilantin) Level 0.9 MCG/ML [facility] Medical Record Reviewed: Yes Supervised Visit with JUSTIN: Yes Interpretation(s) Last Impressions Chest X-Ray 01/25/18 8774 Signed Impressions: Service Date/Time: Thursday, January 25, 2018 22:11 - CONCLUSION: No acute disease. Carlos Eduardo Bonner MD Narrative Course I, Dr. Zaman, have reviewed the advance practice practitioner's documentation and am in agreement, met with the patient face to face, made the diagnosis, and the medical decision making was done by me. The patient was initially evaluated by Radha, the [facility]. Please see their complete history and physical. *My assessment and Findings: The patient presents with left-sided chest pain that radiates the left arm. During the course of the patient's emergency department visit, the patient's history, examination, and differential diagnosis were reviewed with the patient. The patient was placed on a cardiac monitor technician with oximetry and frequent blood pressure monitoring. The patient had IV access obtained and blood work sent for analysis. The patient has an EKG that was done with a sinus rhythm heart rate of 90, QRS duration 80 ms, QTC [address] segment elevation is noted. T waves are inverted in aVL. The patient was initially provided nitroglycerin 1 inch the chest wall. The patient reportedly had nitroglycerin sublingual every 5 minutes 3 prior to arrival. The patient was given aspirin 324 mg p.o. 1. Patient was given Zofran 4 mg IV for nausea, morphine 2 mg IV for pain. The patient's laboratory studies were reviewed and remarkable for a white count of 7.4, hemoglobin 12.9, platelets 289 with lymphocytes 51.8, CMP is remarkable for glucose of 392, AST 6, albumin 3.3, lipase 107, PT 9.7, PTT 28.2, cardiac enzymes initial set within normal limits. Given the patient's elevated blood sugar the patient was given normal saline IV fluids, regular insulin 9 units subcutaneously 1. Dilantin level 0.9. Radiology studies were reviewed and remarkable for a chest x-ray that shows no acute cardiopulmonary disease. From reviewing the electronic medical record, the patient's last stress test done at this facility was in 2014. The patient reportedly has a history of coronary artery disease with stent placement previously. The patient was hypertensive and given labetalol 10 mg IV, Vasotec 1.25 mg IV. The patient's results were discussed with the patient, including the plan of care. I explained that further testing and/ or monitoring is indicated based on the patient's history, examination, and/ or laboratory findings. Therefore, I recommended admission for additional evaluation. The patient expressed understanding and was agreeable with this plan. The patient was admitted to the hospital in stable condition and sent to a bed under the care of the chest pain center. Diagnosis Primary Impression: Chest pain, rule out acute myocardial infarction Admitting Information Admitting Physician Requests: Val Barfield MD Jan 25, 2018 22:49
[2018-01-25 23:00] LABS: ALBUMIN 3.3 GM/DL (3.4-5.0); AST (GOT) 6 U/L (15-37); BLOOD UREA NITROGEN 14 MG/DL (7-18); CALCIUM 9.2 MG/DL (8.5-10.1); CHLORIDE 101 MEQ/L (98-107); CREATININE 0.99 MG/DL (0.50-1.00); GLOMERULAR FILTRATION RATE 71 ML/MIN (>89); GLUCOSE,RANDOM 392 MG/DL (74-106); SODIUM (NA) 137 MEQ/L (136-145)
[2018-01-25 23:01] LABS: ALT (GPT) 12 U/L (10-53)
[2018-01-25 23:04] LABS: ALKALINE PHOSPHATASE 182 U/L (45-117); PHENYTOIN (DILANTIN) 0.9 MCG/ML (10.0-20.0); TOTAL BILIRUBIN ADULT 0.2 MG/DL (0.2-1.0); TOTAL PROTEIN 7.9 GM/DL (6.4-8.2); TROPONIN I LESS THAN 0.02 NG/ML (0.02-0.05)
[2018-01-25] MEDS ORDERED: INSULIN HUMAN REGULAR 1,000 UNITS/10 ML VIAL SQ ONE (23:15)
[2018-01-25] MEDS ORDERED: SODIUM CHLORID 0.9% 500 ML INJ 500 ML IV ONE (23:15)
[2018-01-25] MEDS ORDERED: IOHEXOL 350 MG/ML 50 ML BTL (for Cath Lab) OTHER ONE (23:23)
[2018-01-25] MEDS ORDERED: LABETALOL HCL 100 MG/20 ML VIAL IV PUSH ONE (23:30)
[2018-01-25] MEDS ORDERED: ENALAPRILAT 1.25 MG/ML VIAL IV PUSH ONE (23:30)
[2018-01-26] VITALS (17 sets, daily range): BP systolic 161–225; BP diastolic 72–103; PULSE 66–86; RESP 14–20; TEMP 97.8–99.2; O2SAT 97–100
[2018-01-26] MEDS ORDERED: SODIUM CHLORIDE 0.9% FLUSH 10 ML FLUSH IV FLUSH PRN (01:15)
[2018-01-26 02:12] LABS: TROPONIN I 0.02 NG/ML (0.02-0.05)
[2018-01-26] MEDS ORDERED: cloNIDine HCL 0.1 MG TAB PO SCH (03:15)
[2018-01-26] MEDS: MORPHINE SULFATE 2 MG/ML SYRINGE IV PRN ×3 (03:30→19:58)
[2018-01-26 05:44] LABS: TROPONIN I LESS THAN 0.02 NG/ML (0.02-0.05)
[2018-01-26] MEDS ORDERED: DEXTROSE 50% IN WATER 50 ML VIAL(D50) IV PUSH PRN (08:45)
[2018-01-26] MEDS ORDERED: PILL SPLITTER OTHER PRN (08:45)
[2018-01-26] MEDS ORDERED: GLUCAGON 1 MG/ML VIAL OTHER PRN (08:45)
[2018-01-26] MEDS ORDERED: RESP: ALBUTEROL 2.5 MG/IPRATROPIUM 0.5 MG NEB (PRN) INH (08:45)
[2018-01-26] MEDS ORDERED: hydrALAZINE HCL 100 MG TAB PO SCH (09:00)
[2018-01-26] MEDS ORDERED: [UNRECOGNIZED DRUG - OTHER] PO SCH (09:00)
[2018-01-26] MEDS ORDERED: MORPHINE NALTREXONE PO SCH (09:00)
[2018-01-26] MEDS: PREGABALIN 75 MG CAP PO SCH ×2 (10:00→20:00)
[2018-01-26] MEDS: SODIUM CHLORIDE 0.9% FLUSH 10 ML FLUSH IV FLUSH SCH ×2 (10:00→20:00)
[2018-01-26] MEDS: PANTOPRAZOLE SOD 40 MG DELAYED RELEASE TAB PO SCH (10:01)
[2018-01-26] MEDS: PHENYTOIN SODIUM 100 MG CAP PO SCH ×3 (10:01→18:11)
[2018-01-26] MEDS: LISINOPRIL 20 MG TAB PO SCH (10:01)
[2018-01-26] MEDS: METOPROLOL TARTRATE 100 MG TAB PO SCH ×2 (10:01→20:00)
[2018-01-26] MEDS: LOSARTAN 25 MG TAB PO SCH (10:02)
[2018-01-26] MEDS: PARoxetine HCL 20 MG TAB PO SCH (10:02)
[2018-01-26] MEDS: busPIRone HCL 5 MG TAB PO SCH ×2 (10:02→20:00)
--- NOTE | 2018-01-26 10:03 | HHI.HP ---
HPI Primary Care Physician Unknown Chief Complaint Chest pain History of Present Illness This is a 52-year-old female with history of CAD with stated stent in 2011, hypertension, hyperlipidemia, diabetes, tobacco abuse, lung nodules, prior CVA, COPD that presents to ED with complaint of chest discomfort and numbness/ tingling in her left arm. Her initial complaint was that her fingertips felt numb and funny. Had a tingling sensation going from her neck down into the left arm which she states is not unusual. States she has chronic neck and back pain and takes medication for that. When specifically asking about chest discomfort she then recalled that over the last 3 weeks she has had a central chest discomfort intermittently. Each discomfort last a few seconds. It is not brought on by activity. Is very random. At times she is short of breath and diaphoretic with it. No nausea. When asked if it is similar to when she needed her stent she replies "I do not remember." Not following a time checker. Cannot recall last stress test but believes it was here. Upon reviewing records she had a nonischemic stress test August 2015. She had a 2D echo February 2017 with an EF of 45-50%. She is admitted to the chest pain center May 22, 2017 however left AMA without any further testing. Review of Systems General: Patient denies fevers, chills, and recent travel. HEENT: Patient denies headache, sore throat, difficulty swallowing. Cardiovascular: Has the chest discomfort as mentioned above. Denies sensation of heart beating rapidly or irregularly. No syncope. Occasional episode of diaphoresis. Respiratory: Occasionally short of breath. Denies inspirational chest discomfort. Denies coughing wheezing or hemoptysis. GI: Patient denies nausea, vomiting, diarrhea, abdominal pain, bloody stools. Musculoskeletal: Chronic neck and back pain. Patient denies joint pain or edema. Denies calf pain or edema. Neurovascular: Has chronic tingling in her left arm but states that the fingertips of her left hand felt numb. Patient denies weakness in extremities. Denies headache. Endocrine: Denies polyuria and polydipsia. Hematologic: Denies easy bruising. Skin: States that she has had a rash for years on her back and her doctor has told her that it was impetigo and scribed her ointment for it. States she has an appointment with the [facility]ver hand and will be seeing them soon. Past Family Social History Allergies: Coded Allergies: ciprofloxacin (Unverified Allergy, Severe, SWELLING SOB, 01/25/18) erythromycin base (Unverified Allergy, Severe, SWELLING SOB, 01/25/18) tramadol (Unverified Allergy, Severe, rash, 01/25/18) vancomycin (Unverified Allergy, Severe, SWELLING AND SOB, 01/25/18) Past Medical History CAD and states that she had a stent in 2011. Hypertension, hyperlipidemia, diabetes, COPD, tobacco abuse, lung nodules, prior CVA, GERD, bipolar disorder. Past Surgical History Neck surgery. , cholecystectomy, cardiac catheterization with stenting. Hysterectomy. Reported Medications Reported Meds & Active Scripts Active Levemir Inj (Insulin Detemir) 1,000 unit/ 10 ML Vial 60 Units SQ BID Do not mix with any other Insulin. Fluticasone Nasal [place] 50 Mcg/Act Naspr 50 Mcg EACH NARE DAILY 50 mcg/spray Singulair (Montelukast Sodium) 10 Mg Tab 10 Mg PO HS Atrovent HFA 12.9 GM Inh (Ipratropium [place]) 17 Mcg/Act Aer 2 Puff INH QID Proair Hfa 8.5 GM Inh (Albuterol Sulfate) 90 Mcg/Act Aer 2 Puff INH Q4-6H PRN 108 mcg/actuation Lisinopril 20 Mg Tab 40 Mg PO DAILY Abilify (Aripiprazole) 15 Mg Tab 15 Mg PO DAILY Omeprazole 40 Mg Cap 40 Mg PO DAILY Lovastatin 20 Mg Tab 20 Mg PO HS Novolog Inj (Insulin Aspart) 1,000 Unit/10 Ml Vial 0-25 Units SQ ACHS Max dose at bedtime:( )units; sugars less than 70,(0) units; sugars 150-199,(5) units; sugars 200-249,(10) units; sugars 250-299,(15) units; sugars 300-349,(20)units; sugars greater than 349,(25)units Metoprolol Tartrate 100 Mg Tab 100 Mg PO BID Albuterol Neb (Albuterol Sulfate) 2.5 Mg/3 Ml Neb 2.5 Mg NEB Q4HR NEB PRN Triamcinolone Topical (Triamcinolone Acetonide) 0.1% Cream 1 Applic TOPICAL BID Aspirin 81 (Aspirin) 81 Mg Tabdr 81 Mg PO EVERY OTHER DAY Reported Zylet Opth Drops (Loteprednol-Tobramycin Opth Drops) 0.5-0.3 % Soln 1-2 Drop EACH EYE Q6H Losartan (Losartan Potassium) 25 Mg Tab 25 Mg PO DAILY Hydralazine (Hydralazine HCl) 100 Mg Tab 25 Mg PO BID Take with meals Hydroxyzine Pamoate 50 Mg Cap 50 Mg PO BID Phenytoin Extended 100 Mg Cap 100 Mg PO TID Buspirone (Buspirone HCl) 5 Mg Tab 5 Mg PO BID Paroxetine (Paroxetine HCl) 30 Mg Tab 30 Mg PO DAILY Embeda (Morphine-Naltrexone ER) 20-0.8 Mg Caper 1 Cap PO DAILY Oxycodone-Acetaminophen 10-325 mg Tab 1 Tab PO Q6H PRN Lyrica (Pregabalin) 150 Mg Cap 150 Mg PO BID Tizanidine (Tizanidine HCl) 4 Mg Cap 4 Mg PO TID Ambien (Zolpidem Tartrate) 10 Mg Tab 10 Mg PO HS PRN Ondansetron Odt 4 Mg Tab 4 Mg SL Q8HR PRN Norvasc (Amlodipine Besylate) 10 Mg Tab 10 Mg PO DAILY Active Ordered Medications Current Medications Medications (Trade) Dose Ordered Sig/Katharine Route Start Time Stop Time Status Last Admin (NS Flush) 2 ml UNSCH PRN IV FLUSH 01/26/18 01:15 (NS Flush) 2 ml BID IV FLUSH 01/26/18 09:00 ([place] 10-325 Mg) 1 tab Q6H PRN PO 01/26/18 03:15 (Morphine Inj) 2 mg Q2H PRN IV 01/26/18 03:30 01/26/18 07:28 (Norvasc) 10 mg DAILY PO 01/26/18 09:00 (Abilify) 15 mg DAILY PO 01/26/18 09:00 (Buspar) 5 mg BID PO 01/26/18 09:00 (Vistaril) 50 mg BID PO 01/26/18 09:00 (Prinivil) 40 mg DAILY PO 01/26/18 09:00 (Cozaar) 25 mg DAILY PO 01/26/18 09:00 (Pravachol) 20 mg HS PO 01/26/18 21:00 (Lopressor) 100 mg BID PO 01/26/18 09:00 (Dilantin) 100 mg TID PO 01/26/18 09:00 (Lyrica) 150 mg BID PO 01/26/18 09:00 (Ambien) 10 mg HS PRN PO 01/26/18 21:00 (Protonix) 40 mg DAILY PO 01/26/18 09:00 (Paxil) 30 mg DAILY PO 01/26/18 09:00 Patient Own Medication PT OWN MED: EMBED... DAILY PO 01/26/18 09:00 Future Hold (NovoLOG SUPPLEMENTAL SCALE) 1 ACHS SLIDING SCALE SQ 01/26/18 12:00 (D50w (Vial) Inj) 50 ml UNSCH PRN IV PUSH 01/26/18 08:45 (Glucagon Inj) 1 mg UNSCH PRN OTHER 01/26/18 08:45 (Duoneb Neb) 1 ampule Q4HR NEB PRN INH 01/26/18 08:45 (Pill Splitter) 1 ea UNSCH PRN OTHER 01/26/18 08:45 (Apresoline) 25 mg BID PO 01/26/18 21:00 Family History Both parents had CAD. Social History Continues to smoke cigarettes. States she is smoking approximately one quarter pack of cigarettes daily for 6 months but prior to that smoking 1 pack of cigarettes daily for greater than 30 years. Denies alcohol or illicit drugs. She lives with her . Physical Exam Vital Signs Vital Signs Date Time Temp Pulse Resp B/P (MAP) Pulse Ox O2 Delivery O2 Flow Rate FiO2 01/26/18 08:18 77 01/26/18 07:53 98.2 77 14 191/87 (121) 98 01/26/18 04:31 85 01/26/18 02:47 70 01/26/18 02:39 98.7 81 18 172/84 (113) 98 01/26/18 02:09 98 01/26/18 01:38 81 20 161/72 (101) 98 Room Air 01/26/18 01:06 98.2 79 20 170/76 (107) 98 Room Air 01/26/18 00:00 98.0 86 20 200/102 (134) 97 Room Air 01/25/18 22:32 20 01/25/18 21:58 20 01/25/18 21:57 Room Air 01/25/18 21:57 98.0 84 20 200/100 (133) 98 Room Air 206/102 (136) 01/25/18 21:52 98.0 84 20 222/106 (144) 98 Room Air 01/25/18 21:43 98.0 92 20 226/109 (148) 98 Physical Exam GENERAL: This is a well-nourished, well-developed patient, in no apparent distress. Patient speaks in clear complete sentences. Patient is pleasant. HEENT: Head is atraumatic and normocephalic. Neck is supple without lymphadenopathy and trachea is midline. No JVD or carotid bruits. CARDIOVASCULAR: Regular rate and rhythm without murmurs, gallops, or rubs. RESPIRATORY: Clear to auscultation. Breath sounds equal bilaterally. No wheezes , rales, or rhonchi. Chest wall is nontender. No use of accessory muscles. GASTROINTESTINAL: Abdomen is nontender, nondistended. Abdomen soft. No obvious pulsatile mass or bruit. No CVA tenderness. Strong femoral pulses bilaterally. Normal bowel sounds in all quadrants. MUSCULOSKELETAL: Patient is moving upper and lower extremities freely. No calf tenderness or edema, no Homans sign. Strong pulses in upper and lower extremities. NEUROLOGICAL: Patient is alert and oriented. Cranial nerves 2-12 are grossly intact. No focal deficits and speech is clear. SKIN: There is a macular rash on her back without any drainage or induration. There are several areas. She has dressings on top of these macular rashes. And turgor is normal. Laboratory Laboratory Tests Test 01/25/18 22:00 01/26/18 01:30 01/26/18 04:30 White Blood Count 7.4 Red Blood Count 4.55 Hemoglobin 12.9 Hematocrit 37.4 Mean Corpuscular Volume 82.2 Mean Corpuscular Hemoglobin 28.4 Mean Corpuscular Hemoglobin Concent 34.6 Red Cell Distribution Width 13.6 Platelet Count 289 Mean Platelet Volume 8.5 Neutrophils (%) (Auto) 41.8 Lymphocytes (%) (Auto) 51.8 Monocytes (%) (Auto) 4.8 Eosinophils (%) (Auto) 1.4 Basophils (%) (Auto) 0.2 Neutrophils # (Auto) 3.1 Lymphocytes # (Auto) 3.9 Monocytes # (Auto) 0.4 Eosinophils # (Auto) 0.1 Basophils # (Auto) 0.0 CBC Comment DIFF FINAL Differential Comment Prothrombin Time 9.7 Prothromb Time International Ratio 1.0 Activated Partial Thromboplast Time 28.2 Blood Urea Nitrogen 14 Creatinine 0.99 Random Glucose 392 Total Protein 7.9 Albumin 3.3 Calcium Level 9.2 Magnesium Level 2.0 Alkaline Phosphatase 182 Aspartate Amino Transf (AST/SGOT) 6 Alanine Aminotransferase (ALT/SGPT) 12 Total Bilirubin 0.2 Sodium Level 137 Potassium Level 3.7 Chloride Level 101 Carbon Dioxide Level 31.0 Anion Gap 5 Estimat Glomerular Filtration Rate 71 Total Creatine Kinase 107 54 78 Creatine Kinase MB 1.1 Troponin I LESS THAN 0.02 0.02 LESS THAN 0.02 Lipase 107 Phenytoin (Dilantin) Level 0.9 Result Diagram: 01/25/18219901/25/182199 Imaging Last 48 hours Impressions Chest X-Ray 01/25/182152 Signed Impressions: Service Date/Time: Thursday, January 25, 2018 22:11 - CONCLUSION: No acute disease. Carlos Eduardo Bonner MD Course EKGs are sinus rhythm with nonspecific T-wave changes. No significant ST segment depressions or elevations. Caprini VTE Risk Assessment Caprini VTE Risk Assessment: No/Low Risk (score <= 1) Caprini Risk Assessment Model Point Value = 1 Point Value = 2 Point Value = 3 Point Value = 5 Age 41-60 Minor surgery BMI > 25 kg/m2 Swollen legs Varicose veins or History of unexplained or recurrent spontaneous Oral contraceptives or hormone replacement Sepsis (< 1 month) Serious lung disease, including pneumonia (< 1 month) Abnormal pulmonary function Acute myocardial infarction Congestive heart failure (< 1 month) History of inflammatory bowel disease Medical patient at bed rest Age 61-74 Arthroscopic surgery Major open surgery (> 45 min) Laparoscopic surgery (> 45 min) Malignancy Confined to bed (> 72 hours) Immobilizing plaster cast Central venous access Age >= 75 History of VTE Family history of VTE Factor V Leiden Prothrombin [id number] Lupus anticoagulant Anticardiolipin antibodies Elevated serum homocysteine Heparin-induced thrombocytopenia Other congenital or acquired thrombophilia Stroke (< 1 month) Elective arthroplasty Hip, pelvis, or leg fracture Acute spinal cord injury (< 1 month) Prophylaxis Regimen Total Risk Factor Score Risk Level Prophylaxis Regimen 0-1 Low Early ambulation 2 Moderate Order ONE of the following: *Sequential Compression Device (SCD) *Heparin 5000 units SQ BID 3-4 Higher Order ONE of the following medications: *Heparin 5000 units SQ TID *Enoxaparin/Lovenox 40 mg SQ daily (WT < 150 kg, CrCl > 30 mL/min) *Enoxaparin/Lovenox 30 mg SQ daily (WT < 150 kg, CrCl > 10-29 mL/min) *Enoxaparin/Lovenox 30 mg SQ BID (WT < 150 kg, CrCl > 30 mL/min) AND/OR *Sequential Compression Device (SCD) 5 or more Highest Order ONE of the following medications: *Heparin 5000 units SQ TID (Preferred with Epidurals) *Enoxaparin/Lovenox 40 mg SQ daily (WT < 150 kg, CrCl > 30 mL/min) *Enoxaparin/Lovenox 30 mg SQ daily (WT < 150 kg, CrCl > 10-29 mL/min) *Enoxaparin/Lovenox 30 mg SQ BID (WT < 150 kg, CrCl > 30 mL/min) AND *Sequential Compression Device (SCD) Assessment and Plan Assessment and Plan * Atypical chest pain: Patient does have history of CAD. She has had serial cardiac enzymes and EKGs for ruling out purposes. She will be seen by Dr. Joe of cardiology in the chest pain center and will undergo a Lexiscan. She will be discharged home if her stress test is nonischemic with instructions to follow-up with PCP. Follow-up with cardiology. Return to ED for interval issues. * CAD: This will be reassessed with stress testing. * Diabetes: Patient readily admits that she is not compliant with medications. She has been counseled importance been compliant with medication as well as diabetic diet. She will be on sliding scale insulin coverage while being in the chest pain center. She should have close follow-up with her PCP regarding her diabetes management. * Hypertension: Resume medication. Also readily admits not taking her blood pressure medicines always as instructed. * Hyperlipidemia: She cannot recall taking medication for this. She will need to discuss this with her PCP. She should be on statin therapy history of CAD as well as being diabetic unless there is a contraindication.\\ * Tobacco abuse: Patient has been counseled on the importance of smoking cessation. Patient is stable at this time. She is agreeable to this plan. Yrn Anderson Jan 26, 2018 10:03
--- NOTE | 2018-01-26 11:26 | EKG ---
Date Performed: 01/26/2018 Time Performed: 04:47:41 PTAGE: 52 years EKG: Sinus rhythm POSSIBLE LEFT ATRIAL ENLARGEMENT MARKED LEFT AXIS DEVIATION NONSPECIFIC T-WAVE ABNORMALITY ABNORMAL ECG PREVIOUS TRACING : 01/25/2018 21.46 Since previous tracing, no significant change noted DOCTOR: Arik Joe Interpretating Date/Time 01/26/2018 11:24:10
--- NOTE | 2018-01-26 11:32 | EKG ---
Date Performed: 01/25/2018 Time Performed: 21:46:25 PTAGE: 52 years EKG: Sinus rhythm POSSIBLE LEFT ATRIAL ENLARGEMENT POSSIBLE RIGHT VENTRICULAR CONDUCTION DELAY POSSIBLE LEFT VENTRICUL AR HYPERTROPHY NONSPECIFIC T-WAVE ABNORMALITY ABNORMAL ECG PREVIOUS TRACING : 11/25/2017 18.12 Since previous tracing, no significant change noted DOCTOR: Arik Joe Interpretating Date/Time 01/26/2018 11:30:47
[2018-01-26] MEDS: INSULIN ASPART SUPPLEMENTAL SCALE SQ SCH ×3 (12:00→22:40)
[2018-01-26] MEDS ORDERED: REGADENOSON INJ 0.4 MG/5 ML SYR ONE (13:03)
--- NOTE | 2018-01-26 14:18 | TR ---
Date Performed: 01/26/2018 Time Performed: 13:11:33 DOCTOR: Arik Joe DRUG LIST: CLINICAL HISTORY: REASON FOR TEST: CHEST PAIN REASON FOR ENDING: OBSERVATION: CONCLUSION: Lexiscan stress test was performed under standard four minute protocol. Radionuclid e was injected one minute prior to ending the test. No electrocardiographic abormalities were present to suggest ischemia. Nuclear imaging and interpretation are pending. COMMENTS:
--- NOTE | 2018-01-26 14:30 | RADRPT ---
EXAM DATE/TIME: 01/26/2018 12:55 [facility] COMPARISON: MYOCARDIAL PERF PHARM SPECT, GATED W/EF, September 17, 2015, 11:34. INDICATIONS : Left chest pain radiating to the left arm with dyspnea. Angina. Congestive heart failure. DOSE: 26.7 mCi Tc99m Myoview at stress. 8.5 mCi Tc99m Myoview at rest. 0.4 mg Lexiscan STRESS SYMPTOMS: Dyspnea. EJECTION FRACTION: 41% MEDICAL HISTORY : Myocardial infarction. Diabetes mellitus type 2. Hypercholesterolemia. Hypertension. COPD. Sickle alexsandra l. SURGICAL HISTORY : Hysterectomy. Cholecystectomy. Coronary artery stent. ENCOUNTER: Initial ACUITY: 1 day PAIN SCALE: 6/10 LOCATION: Left chest TECHNIQUE: The patient underwent pharmacologic stress with infusion of prescribed dose. Continuous ECG tracing was monitored during stress. Gated SPECT imaging was performed after stress and conventional SPECT i maging was performed at rest. The examination was performed on a SPECT/CT scanner, both attenuation and non-corrected datasets were reviewed. FINDINGS: DISTRIBUTION: The maximum perfused segment at stress is in the inferior wall. PERFUSION STUDY: Significant hypoperfusion is identified throughout the anterior, lateral and inferior martinez of left v entricle during stress. There is almost complete reperfusion of these areas however the anterior wall only partially reperfuses and there is a small fixed perfusion abnormalities in the inferior wall. GATED STUDY: The left ventral is dilated. There is decreased ejection fraction measuring 41%. Mild to moderate hyp okinesia especially along the anterior wall is noted. CONCLUSION: 1. Abnormal myocardial perfusion scan with significant hypoperfusion during stress which reperfuses a t rest. 2. Left ventricular dilatation and decreased ejection fraction. 3. Probable small fixed abnormality in the inferior wall. RISK CATEGORY: High (>3% Annual Mortality Rate) Froilan Rodríguez MD on January 26, 2018 at 14:21 Board Certified Radiologist. This report was verified electronically.
[2018-01-26] MEDS: ACETAMINOPHEN/HYDROcodone 325 MG/10 MG TAB PO PRN (15:12)
[2018-01-26] MEDS: ARIPiprazole 15 MG TAB PO SCH (15:12)
[2018-01-26] MEDS: ASPIRIN 325 MG TAB PO SCH (15:15)
[2018-01-26] MEDS ORDERED: XARE20TA PO (15:16)
[2018-01-26] MEDS: cloNIDine HCL 0.1 MG TAB PO PRN (16:54)
[2018-01-26] MEDS: PRAVASTATIN SOD 20 MG TAB PO SCH (20:01)
[2018-01-26] MEDS: hydrALAZINE HCL 25 MG TAB PO SCH (20:01)
[2018-01-26] MEDS ORDERED: ZOLPIDEM TARTRATE 10 MG TAB PO PRN (21:00)
[2018-01-27] VITALS (13 sets, daily range): BP systolic 147–196; BP diastolic 69–98; PULSE 65–71; RESP 14–20; TEMP 98.2–99.4; O2SAT 96–99
[2018-01-27] MEDS: cloNIDine HCL 0.1 MG TAB PO PRN (03:49)
[2018-01-27] MEDS: MORPHINE SULFATE 2 MG/ML SYRINGE IV PRN ×3 (03:54→18:52)
[2018-01-27] MEDS: hydrALAZINE HCL 25 MG TAB PO SCH ×2 (06:20→20:54)
[2018-01-27] MEDS: LOSARTAN 25 MG TAB PO SCH (06:20)
[2018-01-27] MEDS: METOPROLOL TARTRATE 100 MG TAB PO SCH ×2 (06:20→20:54)
[2018-01-27] MEDS: LISINOPRIL 20 MG TAB PO SCH (06:20)
[2018-01-27] MEDS: INSULIN ASPART SUPPLEMENTAL SCALE SQ SCH ×4 (08:00→20:56)
[2018-01-27] MEDS: PREGABALIN 75 MG CAP PO SCH ×2 (09:49→20:55)
[2018-01-27] MEDS: PANTOPRAZOLE SOD 40 MG DELAYED RELEASE TAB PO SCH (09:50)
[2018-01-27] MEDS: PHENYTOIN SODIUM 100 MG CAP PO SCH ×3 (09:50→18:48)
[2018-01-27] MEDS: PARoxetine HCL 20 MG TAB PO SCH (09:50)
[2018-01-27] MEDS: ARIPiprazole 15 MG TAB PO SCH (09:50)
[2018-01-27] MEDS: busPIRone HCL 5 MG TAB PO SCH ×2 (09:50→20:54)
[2018-01-27] MEDS: SODIUM CHLORIDE 0.9% FLUSH 10 ML FLUSH IV FLUSH SCH ×2 (09:51→20:55)
[2018-01-27] MEDS: ASPIRIN 325 MG TAB PO SCH (09:51)
--- NOTE | 2018-01-27 10:01 | MB ---
cc: Ari Hernandez MD DATE: 01/27/2018 INDICATION: Chest pain. HISTORY OF PRESENT ILLNESS: This is a 52-year-old female with history of coronary artery disease, prior stent 2011, hypertension, hyperlipidemia, diabetes, who came in with chest pain, tingling down her left arm. States this is somewhat similar to her prior anginal equivalent. She also had some shortness of breath. She does not recall who her transformation architect or when she had her last stress test was. She has a mild cardiomyopathy documented on echocardiogram in February 2017. She had a stress test today, which was high risk. We are consulted for further recommendations. PAST MEDICAL HISTORY: As mentioned above, coronary artery disease, hypertension, hyperlipidemia, diabetes, COPD, prior CVA, GERD, bipolar disorder. HOME MEDICATIONS: 1. . 2. Losartan. 3. Hydralazine. 4. Hydroxyzine. 5. Phenytoin. 6. Buspirone. 7. Paroxetine 8. Embeda. 9. Lyrica. 10. Tizanidine. 11. Ambien. 12. Ondansetron. 13. Norvasc. ALLERGIES: CIPRO, ERYTHROMYCIN, TRAMADOL AND VANCOMYCIN. SOCIAL HISTORY: Continues to smoke. Denies any drugs or alcohol use. FAMILY HISTORY: Denies any family history of early coronary disease or sudden cardiac . PHYSICAL EXAMINATION: VITAL SIGNS: Temperature 98, pulse 70, blood pressure 192/84 mmHg. GENERAL: Alert and oriented x 3 in no acute distress. HEENT: Shows pupils reactive to light and accommodation. Extraocular movements intact. NECK: Not had elevation of jugular venous distention. No thyromegaly. No lymphadenopathy. No carotid bruits. LUNGS: Clear to auscultation bilaterally. CARDIOVASCULAR: Regular rate and rhythm without murmurs, rubs or gallops. ABDOMEN: Nontender, nondistended. Good bowel sounds. No hepatosplenomegaly. EXTREMITIES: Shows no cyanosis, clubbing or edema. Good peripheral pulses. NEUROLOGIC: Cranial nerves intact. Motor, sensory grossly intact. LABORATORY DATA: WBC 7.4, hemoglobin 12.9, platelet count is 289. INR is 1. Sodium 137, potassium 3.7, BUN 14, creatinine 0.99. Troponins negative x 3. ASSESSMENT: 1. Chest pain. 2. High risk stress test. 3. History of coronary artery disease, hypertension, hyperlipidemia, and diabetes. PLAN: The risks, benefits and alternatives discussed with the patient for consideration of cardiac catheterization. The patient is n.p.o., we will modify blood pressure medications here today to try to optimize blood pressure control. MD LILIANA June/ZENON/rr , 07:42 AM , 08:07 AM
[2018-01-27] MEDS ORDERED: HEPARIN-NS/PF FLUSH BAG 2,000 ML IV FLUSH ONE (11:30)
[2018-01-27] MEDS ORDERED: HEPARIN SODIUM - IV 10,000 UNITS/10 ML VIAL ONE (11:33)
[2018-01-27] MEDS ORDERED: MIDAZOLAM HCL 2 MG/2 ML VIAL ONE (11:33)
[2018-01-27] MEDS ORDERED: NITROGLYCERIN INJ 5 ML ONE (11:33)
--- NOTE | 2018-01-27 12:22 | CATHPROC ---
[facility] HIS Report Study Information Study Number Admission Scheduled Start Study Start [id number] Jan 25 2018 11:22PM 01/27/2018 Jan 27 2018 11:09AM [facility] Service Cardiac Catheterization Admit Source Facility Department Emergency department [facility] - Vascular Physician Physician and Clinical Staff Initial Ari Aguilera Quality Analyst Robbie Alaniz,ZAHEER Other cathlab, cathlab Recorder Rakesh Decker RCIS(BS) Recorder Americo Alvarez,RT(R) Scrub Dina Morillo ,RT(R) Procedures Performed Procedure Location (Site) Vessel Name Coronary Angiograms LCA Left Coronary Coronary Angiograms RCA Right Coronary L Heart Cath Equipment Time Manager Bank Description Size Mfg Part Number Used/Scraped TRANSDUCER, TRKarazAVE [id number] 11:21 AARON JENSEN * Used W/STOCKCOCK *[id number] *[id number] 11:21 Rkylin INDUSTRIES PACK, CCL CUSTOM * Used *[id number] 11:21 Miret Surgical SUPPORT, ARTERIAL ADULT [id number] *[id number] Used [id number] 11:21 Rkylin PACER PEN, SKIN DUAL W/ RULER * Used *[id number] 12:02 MEDTRONIC JR 5.0 DXTERITY CATHETER fr 5 [id number] Used BAND, RADIAL COMPRESSION TR [id number] 12:12 ZIPDIGS 24CM Used SHORT 24 *[id number] SHEATH, FR6 RADIAL PRELUDE 11:21 ZIPDIGS FR 6 [id number] Used EASE 11CM [id number] 11:21 ZIPDIGS WIRE, EXCHANGE 260CM 3MMJ 260CM Used *[id number] 11:21 NYCOMED OMNIPAQUE, 350 MG, 150ML 150ML [id number] Used [id number] 11:21 Adaptly BLANKET,WARM AIR CCL * Used *[id number] History: Current Medications Medication Dosage/Unit Route Frequency Last Date/Time Taken Statins (any) Beta Juan Luis ASA XARELTO History: Allergies Allergy Reaction *MDRO Multi-Drug Resistant Organism Cipro SWELLING SOB Erythromycin SWELLING SOB tramadol rash vancomycin SWELLING AND SOB erythromycin base SWELLING SOB ciprofloxacin SWELLING SOB History: Risk Factors Family History of Hypertension Dyslipidemia Previous UT Previous Heart Failure Premature CAD Yes Yes Yes No Yes Prior Valve Prior PCI Prior PCIDate Prior CABG Surgery No Yes 10/28/2011 No Cerebrovascular Peripheral Artery Chronic Lung On Dialysis Diabetes Diabetes Therapy Disease Disease Disease No Yes No Yes Yes Insulin History: Risk Factors Selection Items Diabetes Hypercholesterolemia-Lipid Low. Therapy History: Symptoms/Diagnosis Selection Items Chest pain History: CV Disease Selection Items Known CAD History: Stress Tests Stress or Imaging Studies Performed Yes Standard Exercise Stress Test No Stress Echo No Stress Test SPECT Stress Test SPECT Result Stress Test SPECT Ischemia Risk/Extent Yes Positive Intermediate Stress Test CMR No Cardiac CTA Coronary Calcium Score No No History: Other Disease Selection Items CAD CHF HTN History: UT/CV Data Previous Cath Date 10/28/2011 History: Other Current Smoker Method Packs a Day Years Used Pack Years Yes Cigarettes 1 44 44 Labs Hgb (g/dl) Hct (%) RBC (MIL/MM3) WBC (l/cumm) Platelets (thousands) 11.60-17.00 35.00-51.00 4.00-5.90 4.00-11.00 150.00-450.00 12.9 37.4 4.5 7.4 289 Glucose (mg/dl) BUN (mg/dl) Creatinine (mg/dl) BUN:Creatinine (1:x) 74.00-106.00 7.00-18.00 0.50-1.30 10.00-20.00 392 14 0.9 15.6 Na (meq/l) K (meq/l) Cl (meq/l) CO2 (mmol/L) Ca (mg/dl) 136.00-145.00 3.50-5.10 98.00-107.00 21.00-32.00 8.50-10.10 137 3.7 101 31 9.2 PT (sec) PTT (sec) INR (PTT:PT) 9.80-11.60 24.30-30.10 0.90-1.10 9.7 28.2 1 Troponin I (ng/ml) CPK (u/l) CPK-MB (ng/ML) 0.02-0.05 26.00-308.00 0.50-3.60 0.02 78 1.1 Medication Medication Total Dose (Bolus/Oral) Medication Total Dosage/Unit 1% XYLOCAINE 5 mL FENTANYL 50 mcg HEPARIN 3000 units NTG (IC) 200 mcg VERSED 2 mg Medications (Bolus/Oral) Medication Time Given Dosage/Unit Administered By Reason VERSED 01/27/2018 11:54:21 AM 1 mg Robbie Alaniz 1 mg VERSED given in lab by Robbie Alaniz RN in Right Wrist via Peripheral IV. Ordered by St kena Hernandez. FENTANYL 01/27/2018 11:54:23 AM 25 mcg Robbie Alaniz 25 mcg FENTANYL given in lab by Robbie Alaniz RN in Right Wrist via Peripheral IV. Ordered by Ari Hernandez. 1% XYLOCAINE 01/27/2018 11:55:13 AM 5 mL Ari Hernandez 5 mL 1% XYLOCAINE given in lab by Ari Hernandez in Right Radial via Subcutaneous. Ordered by Ari Hernandez. NTG (IC) 01/27/2018 11:57:12 AM 200 mcg Ari Hernandez 200 mcg NTG (IC) given in lab by Ari Hernandez in Right Radial via Intra-arterial. Ordered by Ari Hernandez. VERSED 01/27/2018 11:57:58 AM 1 mg Robbie Alaniz 1 mg VERSED given in lab by Robbie Alaniz RN in Right Wrist via Peripheral IV. Ordered by St kena Hernandez. FENTANYL 01/27/2018 11:58:03 AM 25 mcg Robbie Alaniz 25 mcg FENTANYL given in lab by Robbie Alaniz RN in Right Wrist via Peripheral IV. Ordered by Ari Hernandez. HEPARIN 01/27/2018 11:59:27 AM 3000 units Robbie Alaniz 3000 units HEPARIN given in lab by Robbie Alaniz RN in Right Wrist via Peripheral IV. Ordered by Ari Mcpherson. Medication (Drip) Medication Time Given Dosage/Unit Concentration/Unit Diluent (ml) Solution IV Solutions 01/27/2018 11:19:14 AM 0 mL (IV) 500 NaCl .9 Patient arrived on IV Solutions in Right Wrist via Peripheral IV. Pump/Drip Flow = 20 ml/hr using NaC l .9. Ordered by Ari Hernandez. Initial Case Assessment Cardiovascular HR Rhythm NIBP Chest Pain 66 NSR 187/83 0 Edema Present Skin color Skin None Normal Warm Dry Circulatory - Right Pulses Dorsalis Pedis Femoral Radial 1 3 2 Scale (0,1,2,3,4,d) Scale (0,1,2,3,4,d) Neurological State Oriented to time-place- Alert Moves all extremities person Respiration - General Respiration Rate SpO2 (%) (B/min) 15 98 Final Case Assessment Cardiovascular HR Rhythm NIBP Chest Pain 64 Sinus 195/86 0 Edema Present Skin color Skin None Normal Warm Dry Circulatory - Right Pulses Dorsalis Pedis Femoral Radial 1 3 2 Scale (0,1,2,3,4,d) Scale (0,1,2,3,4,d) Neurological State Oriented to time-place- Alert Moves all extremities person Respiration - General Respiration Rate SpO2 (%) O2 (lpm) (B/min) 16 97 0 Chronological Log Time Study Chronological Log 11:19:02 Patient arrived via Bed. 11:19:02 Patient Name, D.O.B, / Armband Verified By R.N. 11:19:05 Consent signed by the physician and the patient and verified by the Vascular Physician staff. 11:19:05 Pre-op and post- op instructions given; patient acknowledges understanding of instructions. 11:19:06 Verbal Stimulation=2 Physical Stimulation=2 Airway=2 Respiration=2 TOTAL=8. (0=absent, 1=li mited, 2=present) 11:19:07 Presedation assessment performed by Vascular Physician RN. 11:19:08 Allens test performed on the right radial and ulnar artery. POSITIVE. 11:19:09 Immediate Presedation assesment performed by physician. 11:19:09 Patient has been NPO for More than 6Hrs. 11:19:11 Skin Breakdown- none per patient 11:19:11 Patient Warmer Placed on the Table. 11:19:12 Kayla Prominences Protected 11:19:14 A # 20 IV was noted in the Wrist (right). Grade = 0 Patient arrived on IV Solutions in Right Wrist via Peripheral IV. Pump/Drip Flow = 20 ml/hr usi ng NaCl .9. Ordered by 11:19:14 Ari Hernandez. 11:19:15 History and physical on the chart or being dictated. Assessment: Initial Case, HR=66 BPM, Rhythm=NSR, UJVA=277/83 mmhg, Chest Pain=0, Edema=None, Color=Normal, Skin = Warm, Dry 11:25:29 Right Pulses: Gulshan Ped=1, Femoral=3, Radial=2 Neurological: State=Alert, Ox3, CAMACHO Respiration: Resp=15 B/min, SpO2=98 % 11:25:44 Reference ECG taken Vitals capture started with the following parameters, Patient=Adult, Interval=5 min, Initial Pr vpwdfn=672 mmHg, 11:25:48 Deflation Rate=5 mmHg, Cuff placed on Left Arm 11:26:16 Vitals capture stopped. Vitals capture started with the following parameters, Patient=Adult, Interval=5 min, Initial Pr ymqpqw=150 mmHg, 11:31:42 Deflation Rate=5 mmHg, Cuff placed on Left Arm Vitals capture started with the following parameters, Patient=Adult, Interval=5 min, Initial Pr sfehat=533 mmHg, 11:33:59 Deflation Rate=5 mmHg, Cuff placed on Left Arm 11:34:42 HR=63 bpm, EXZS=063/83 mmhg, SpO2=94.0 %, Resp=15 B/min, Pain=0, Merle=10, Becerra=2 11:35:32 Right Radial and groin(s) prepped with 2% chlorhexidine, and draped after a 3 min. waiting time. 11:39:45 HR=63 bpm, ZZUO=556/85 mmhg, SpO2=94.0 %, Resp=15 B/min, Pain=0, Merle=10, Becerra=2 11:41:20 MD paged 11:42:15 MD responded 11:43:21 Pressure channel 1 zeroed. 11:44:44 HR=66 bpm, TOSR=712/92 mmhg, SpO2=93.0 %, Resp=16 B/min, Pain=0, Merle=10, Becerra=2 11:49:48 HR=65 bpm, WMXI=562/83 mmhg, SpO2=93.0 %, Resp=17 B/min, Pain=0, Merle=10, Becerra=2 11:50:30 MD arrived. Time Out. Correct patient, correct procedure, correct physician, power injector not loaded with contrast with surgical 11:54:00 team present. Time Out Concurred by MD and individual staff in procedure. 11:54:09 Case Start 11:54:21 1 mg VERSED given in lab by Robbie Alaniz, RN in Right Wrist via Peripheral IV. Ordered by Ari Hernandez. 11:54:23 25 mcg FENTANYL given in lab by Robbie Alaniz, ZAHEER in Right Wrist via Peripheral IV. Ordere d by Ari Hernandez. 11:54:47 HR=66 bpm, QNKR=744/86 mmhg, SpO2=95.0 %, Resp=18 B/min, Pain=0, Merle=10, Becerra=2 11:55:13 5 mL 1% XYLOCAINE given in lab by Ari Hernandez in Right Radial via Subcutaneous. Ordered by Ari Hernandez. 11:55:44 Access site was Radial Artery. A SHEATH, FR6 RADIAL PRELUDE EASE 11CM FR 6 was advanced into the Radial (right) using the Perc utaneous 11:56:48 technique. 11:57:12 200 mcg NTG (IC) given in lab by Ari Hernandez in Right Radial via Intra-arterial. Ordered by Ari Hernandez. 11:57:58 1 mg VERSED given in lab by Robbie Alaniz RN in Right Wrist via Peripheral IV. Ordered b y Ari Hernandez. 11:58:03 25 mcg FENTANYL given in lab by Robbie Alaniz RN in Right Wrist via Peripheral IV. Order ed by Ari Hernandez. 11:59:27 3000 units HEPARIN given in lab by Robbie Alaniz RN in Right Wrist via Peripheral IV. Or dered by Ari Hernandez. 11:59:50 HR=67 bpm, ENCP=049/75 mmhg, SpO2=90.0 %, Resp=12 B/min, Pain=0, Merle=10, Becerra=2 A JR 5.0 DXTERITY CATHETER fr 5 was advanced over a wire. OMNIPAQUE, 350 MG, 150ML 150ML was u sed for 12:00:56 injections. 12:02:05 The RCA was injected and visualized at various angles. OMNIPAQUE, 350 MG, 150ML 150ML use d. After removing the current catheter a JL 3.5 INFINITI CATHETER FR 5 was advanced over a WIRE, EXCHANGE 260CM 12:02:16 3MMJ 260CM. 12:04:31 The LCA was injected and visualized at various angles. OMNIPAQUE, 350 MG, 150ML 150ML use d. 12:04:43 HR=66 bpm, JLSM=848/81 mmhg, SpO2=92.0 %, Resp=11 B/min, Pain=0, Merle=10, Becerra=2 Recorded Pressure: Ao, HR=62, Condition=Condition 1 12:07:35 (Aorta) Ao 176/73/109 12:10:02 Catheter was removed 12:10:33 HR=67 bpm, XXZD=496/85 mmhg, SpO2=92.0 %, Resp=21 B/min, Pain=0, Merle=10, Becerra=2 12:12:06 Case End 12:14:51 HR=63 bpm, GPMZ=293/86 mmhg, SpO2=92.0 %, Resp=13 B/min, Pain=0, Merle=10, Becerra=2 Assessment: Final Case, HR=64 BPM, Rhythm=Sinus, YBGD=582/86 mmhg, Chest Pain=0, Edema=None, Color=Normal, Skin = Warm, Dry 12:15:09 Right Pulses: Gulshan Ped=1, Femoral=3, Radial=2 Neurological: State=Alert, Ox3, CAMACHO Respiration: Resp=16 B/min, SpO2=97 %, O2=0 lpm Radial Compression Device Used. 15 mLs of air placed in BAND, RADIAL COMPRESSION TR SHORT 24 2 4CM. Affected 12:15:13 hand 98 % O2 saturation. 12:15:29 No case complications noted. 12:15:32 Cine recording checked. 12:16:34 Bedside Report will be given. 12:16:38 A Left Heart Cath was performed. 12:22:54 [facility] - Contrast Media Used In Study Contrast Total Opened (mL) Total Used (mL) Total Wasted (mL) Omnipaque 150 40 110 End Study - Maximum Contrast Load Max Contrast Load (mL) 400.0 End Study - Radiation Exposure Fluoro Time (minutes) 3.9 End Study - Patient Disposition Complications Transferred To Interventional Outcome No Telemetry Bed No attempt made
[2018-01-27] MEDS ORDERED: hydrALAZINE HCL 20 MG/ML VIAL ONE (12:33)
--- NOTE | 2018-01-27 12:53 | MA ---
cc: Ari Hernandez MD DATE: 01/27/2018 INDICATIONS: Unstable angina, intermediate risk stress test. METHOD: Risks, benefits and alternatives discussed with the patient. The patient understood, consented to the procedure. The patient then brought into the catheterization lab, placed on the catheterization table. The right wrist was prepped and draped in sterile fashion. The right wrist was anesthetized with 2% lidocaine. The right radial artery was cannulated. A 6-Panamanian, 7 cm sheath was placed without difficulty. CORONARY ANGIOGRAPHY: 1. 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 2. Left anterior descending coronary has mild disease in the proximal segment with a stent present. There is a moderate to large-sized caliber diagonal branch with a 70-75% ostial stenosis. The mid-left anterior descending coronary artery has a 50% stenosis and two tandem segments. The remaining left anterior descending coronary artery has mild irregularities. 3. The right coronary artery is technically codominant although very small caliber size. It has 90-95% stenosis throughout its entire segment and throughout its acute marginal branch. CONCLUSIONS: Branch vessel coronary disease, primarily involving a small right coronary artery and ostial diagonal branch. PLAN: The culprit stenosis likely the right which is too small to intervene on. The diagonal branches, although moderate to large caliber size, the ostial location would jeopardize potentially the LAD itself. I think at this point, medical management approach may be the most advantageous. If she fails and has recurrent symptoms despite an addition long-acting nitrate, then we may consider attempted intervention of the ostium of the diagonal branch. If she does well, she can be discharged later today. Thank you very much. Ari Hernandez MD LILIANA/SB , 12:17 PM , 12:52 PM
[2018-01-27] MEDS ORDERED: hydrALAZINE HCL 20 MG/ML VIAL IV ONE (13:00)
--- NOTE | 2018-01-27 14:05 | HHI.PR ---
Subjective Remarks Follow up on patient with chest pain. Patient seen and examined. Patient reports continued chest pain at rest and worse with exacerbation. Patient reports the pain goes up into her left shoulder and upper back as well as down the left arm. She endorses associated shortness of breath. She denies any nausea, vomiting or abdominal pain. She complains of difficulty swallowing for the past several months and reports 60-70 pound unintentional wt loss since March of last year. She has a sensation of food getting stuck in her throat. She denies any coughing with drinking liquids. She denies any fever or chills. She denies any dysuria, diarrhea or constipation. Objective Vitals Vital Signs Date Time Temp Pulse Resp B/P (MAP) Pulse Ox O2 Delivery O2 Flow Rate FiO2 01/27/18 08:06 99.4 70 14 147/69 (95) 97 Manual Cuff/Auscultation 01/27/18 07:10 69 01/27/18 05:57 182/84 (116) 01/27/18 05:47 170/78 (108) 01/27/18 04:01 65 01/27/18 04:00 98.2 70 20 97 01/27/18 03:56 196/98 (130) 01/27/18 03:51 184/92 (122) 01/27/18 00:20 70 01/27/18 00:00 98.8 70 20 194/85 (121) 99 01/26/18 20:51 67 01/26/18 20:00 99.2 75 20 184/89 (120) 97 01/26/18 19:29 98 01/26/18 16:10 180/92 (121) 01/26/18 16:07 97.8 74 16 225/103 (143) 100 01/26/18 16:00 71 I/O 01/26/18 01/26/18 01/26/18 01/27/18 01/27/18 01/27/18 06:59 14:59 22:59 06:59 14:59 22:59 Intake Total 1000.00 ml 320 ml Balance 1000.00 ml 320 ml Intake Oral 320 ml IV Total 1000.00 ml # Voids 2 2 2 # Bowel Movements 0 Result Diagram: 01/25/18219901/25/182199 Imaging Last Impressions Myocardial Perfusion Scan Nuc Med 01/26/18 0000 Signed Impressions: Service Date/Time: Friday, January 26, 2018 12:55 - CONCLUSION: 1. Abnormal myocardial perfusion scan with significant hypoperfusion during stress which reperfuses at rest. 2. Left ventricular dilatation and decreased ejection fraction. 3. Probable small fixed abnormality in the inferior wall. RISK CATEGORY: High (>3%% Annual Mortality Rate) Froilan Rodríguez MD Chest X-Ray 01/25/18 3833 Signed Impressions: Service Date/Time: Thursday, January 25, 2018 22:11 - CONCLUSION: No acute disease. Carlos Eduardo Bonner MD Objective Remarks GENERAL: This is a well-nourished, well-developed female patient, in no apparent distress. Sitting up in wheelchair. Awake and alert. SKIN: (+)scattered macular rash on upper back with superficial erosions, no evidence of infection. HEENT: Atraumatic, normocephalic. EOMI. Sclera anicteric. No nasal drainage. Trachea midline. MMM. CARDIOVASCULAR: Regular rate and rhythm without murmurs, gallops, or rubs. RESPIRATORY: Nonlabored. Clear to auscultation. Breath sounds equal bilaterally. No wheezes, rales, or rhonchi. GASTROINTESTINAL: Abdomen is soft, nontender, nondistended. MUSCULOSKELETAL: No obvious deformities. No pedal edema appreciated. NEUROLOGICAL: Awake and alert. Able to move all extremities spontaneously. Nonfocal. Speech is normal. PSYCHIATRIC: Appropriate mood and affect. Normal insight and judgement. Medications and IVs Current Medications Medications (Trade) Dose Ordered Sig/Katharine Route Start Time Stop Time Status Last Admin (NS Flush) 2 ml UNSCH PRN IV FLUSH 01/26/18 01:15 (NS Flush) 2 ml BID IV FLUSH 01/26/18 09:00 01/27/18 09:51 (Inez 10-325 Mg) 1 tab Q6H PRN PO 01/26/18 03:15 01/26/18 15:12 (Morphine Inj) 2 mg Q2H PRN IV 01/26/18 03:30 01/27/18 05:49 (Norvasc) 10 mg DAILY PO 01/26/18 09:00 01/27/18 06:20 (Abilify) 15 mg DAILY PO 01/26/18 09:00 01/27/18 09:50 (Buspar) 5 mg BID PO 01/26/18 09:00 01/27/18 09:50 (Vistaril) 50 mg BID PO 01/26/18 09:00 01/27/18 09:49 (Prinivil) 40 mg DAILY PO 01/26/18 09:00 01/27/18 06:20 (Pravachol) 20 mg HS PO 01/26/18 21:00 01/26/18 20:01 (Lopressor) 100 mg BID PO 01/26/18 09:00 01/27/18 06:20 (Dilantin) 100 mg TID PO 01/26/18 09:00 01/27/18 13:00 (Lyrica) 150 mg BID PO 01/26/18 09:00 01/27/18 09:49 (Ambien) 10 mg HS PRN PO 01/26/18 21:00 (Protonix) 40 mg DAILY PO 01/26/18 09:00 01/27/18 09:50 (Paxil) 30 mg DAILY PO 01/26/18 09:00 01/27/18 09:50 Patient Own Medication PT OWN MED: EMBED... DAILY PO 01/26/18 09:00 Future Hold (NovoLOG SUPPLEMENTAL SCALE) 1 ACHS SLIDING SCALE SQ 01/26/18 12:00 01/27/18 12:00 (D50w (Vial) Inj) 50 ml UNSCH PRN IV PUSH 01/26/18 08:45 (Glucagon Inj) 1 mg UNSCH PRN OTHER 01/26/18 08:45 (Duoneb Neb) 1 ampule Q4HR NEB PRN INH 01/26/18 08:45 (Pill Splitter) 1 ea UNSCH PRN OTHER 01/26/18 08:45 (Apresoline) 25 mg BID PO 01/26/18 21:00 01/27/18 06:20 (Aspirin) 325 mg DAILY PO 01/26/18 14:45 01/27/18 09:51 (Catapres) 0.1 mg Q4H PRN PO 01/26/18 16:15 01/27/18 03:49 (Imdur) 60 mg DAILY@07 PO 01/28/18 07:00 (Xarelto) 20 mg DAILY PO 01/28/18 09:00 A/P Assessment and Plan Chest pain with abnormal stress test -Cardiology consult, cardiac cath later today -continuous cardiac monitoring CAD Cardiomyopathy, no evidence of decompensation, previous echo with EF 45-50% 03/14 HTN, uncontrolled at admission HLD -Patient appears euvolemic. Continue to monitor for evidence of fluid overload. -Continue on lisinopril 40 mg daily, Lopressor 100 mg twice daily, Norvasc 10 mg daily, hydralazine 25 mg twice daily -Continue on statin daily Dysphagia -ST swallow evaluation -Barium swallow DM, poorly controlled -Blood sugar 392 admission -Accu-Chek and insulin sliding scale -last A1c in the system 13.3 07/07/17 -obtain new A1c -Patient normally takes Levemir 60 units twice daily. Once patient is cleared for diet, will resume at Levemir 25u BID and adjust accordingly COPD, not in acute exacerbation Ongoing tobaccoism -discussed smoking cessation -Duonebs prn Seizure d/o -no seizure activity reported -continue on Dilantin -seizure precautions Upper back rash -chronic per patient report. Diagnosed with impetigo treated with Bactroban. No e/o infection. Patient states she has upcoming appointment with fund controller. -Consult wound care DVT prophylaxis -bilateral SCD/LI Stephenie Davis Jan 27, 2018 14:05
--- NOTE | 2018-01-27 18:36 | RADRPT ---
EXAM DATE/TIME: 01/27/2018 18:09 [facility] COMPARISON: No previous studies available for comparison. INDICATIONS : Dysphagia. FLUORO TIME: 0.8 minutes IMAGE COUNT: 6 CONTRAST: 1. Liquid E-Z Paque Barium Sulfate (60% w/v, 41% w.w) MEDICAL HISTORY : Myocardial infarction. Diabetes mellitus type II. Hypercholesterolemia. Hypertension. COPD. Sickl e cell. Stroke. SURGICAL HISTORY : Hysterectomy. Cholecystectomy. Coronary artery stent. Cervical fusion. ENCOUNTER: Initial ACUITY: 2 months PAIN SCORE: 0/10 LOCATION: Throat. FINDINGS: There is a mild nonspecific esophageal motility disorder. Small sliding hiatal hernia. No obstructing or constricting lesions identified within the esophagus. Previous cervical fusion. CONCLUSION: 1. Mild nonspecific esophageal motility disorder with small sliding hiatal hernia. No obstruction. Robert Elliott MD on January 27, 2018 at 18:32 Board Certified Radiologist. This report was verified electronically.
[2018-01-27] MEDS: PRAVASTATIN SOD 20 MG TAB PO SCH (20:54)
[2018-01-27] MEDS: INSULIN DETEMIR 100 UNITS/ML VIAL SQ SCH (20:56)
[2018-01-28] VITALS (7 sets, daily range): BP systolic 99–181; BP diastolic 63–85; PULSE 57–72; RESP 18–19; TEMP 97.8–98.8; O2SAT 95–100
[2018-01-28] MEDS: ACETAMINOPHEN/HYDROcodone 325 MG/10 MG TAB PO PRN ×3 (00:49→12:29)
[2018-01-28] MEDS: MORPHINE SULFATE 2 MG/ML SYRINGE IV PRN ×2 (03:42→09:38)
[2018-01-28] MEDS: cloNIDine HCL 0.1 MG TAB PO PRN (05:18)
[2018-01-28] MEDS ORDERED: ISOSORBIDE MONONITRATE 60 MG CR TAB (IMDUR) PO SCH (07:00)
[2018-01-28] MEDS: SODIUM CHLORIDE 0.9% FLUSH 10 ML FLUSH IV FLUSH SCH (07:24)
[2018-01-28] MEDS: INSULIN ASPART SUPPLEMENTAL SCALE SQ SCH ×2 (07:46→12:26)
[2018-01-28] MEDS: PANTOPRAZOLE SOD 40 MG DELAYED RELEASE TAB PO SCH (07:58)
[2018-01-28] MEDS: ASPIRIN 325 MG TAB PO SCH (07:58)
[2018-01-28] MEDS: METOPROLOL TARTRATE 100 MG TAB PO SCH (07:58)
[2018-01-28] MEDS: PREGABALIN 75 MG CAP PO SCH (07:59)
[2018-01-28] MEDS: hydrALAZINE HCL 25 MG TAB PO SCH (07:59)
[2018-01-28] MEDS: busPIRone HCL 5 MG TAB PO SCH (07:59)
[2018-01-28] MEDS: PHENYTOIN SODIUM 100 MG CAP PO SCH ×2 (07:59→12:26)
[2018-01-28] MEDS: PARoxetine HCL 20 MG TAB PO SCH (07:59)
[2018-01-28] MEDS: LISINOPRIL 20 MG TAB PO SCH (08:07)
[2018-01-28] MEDS: INSULIN DETEMIR 100 UNITS/ML VIAL SQ SCH (08:07)
--- NOTE | 2018-01-28 08:29 | PD.CARD.PN ---
Subjective Subjective Remarks she reports mild, brief chest pain overnight; improved from initial presentation. No sob or palpitations. Objective Medications Current Medications Medications (Trade) Dose Ordered Sig/Katharine Route Start Time Stop Time Status Last Admin (NS Flush) 2 ml UNSCH PRN IV FLUSH 01/26/18 01:15 (NS Flush) 2 ml BID IV FLUSH 01/26/18 09:00 01/28/18 07:24 ([place] 10-325 Mg) 1 tab Q6H PRN PO 01/26/18 03:15 01/28/18 05:18 (Morphine Inj) 2 mg Q2H PRN IV 01/26/18 03:30 01/28/18 03:42 (Norvasc) 10 mg DAILY PO 01/26/18 09:00 01/28/18 07:59 (Abilify) 15 mg DAILY PO 01/26/18 09:00 01/27/18 09:50 (Buspar) 5 mg BID PO 01/26/18 09:00 01/28/18 07:59 (Vistaril) 50 mg BID PO 01/26/18 09:00 01/28/18 07:59 (Prinivil) 40 mg DAILY PO 01/26/18 09:00 01/28/18 08:07 (Pravachol) 20 mg HS PO 01/26/18 21:00 01/27/18 20:54 (Lopressor) 100 mg BID PO 01/26/18 09:00 01/28/18 07:58 (Dilantin) 100 mg TID PO 01/26/18 09:00 01/28/18 07:59 (Lyrica) 150 mg BID PO 01/26/18 09:00 01/28/18 07:59 (Ambien) 10 mg HS PRN PO 01/26/18 21:00 (Protonix) 40 mg DAILY PO 01/26/18 09:00 01/28/18 07:58 (Paxil) 30 mg DAILY PO 01/26/18 09:00 01/28/18 07:59 Patient Own Medication PT OWN MED: EMBED... DAILY PO 01/26/18 09:00 Future Hold (NovoLOG SUPPLEMENTAL SCALE) 1 ACHS SLIDING SCALE SQ 01/26/18 12:00 01/27/18 20:56 (D50w (Vial) Inj) 50 ml UNSCH PRN IV PUSH 01/26/18 08:45 (Glucagon Inj) 1 mg UNSCH PRN OTHER 01/26/18 08:45 (Duoneb Neb) 1 ampule Q4HR NEB PRN INH 01/26/18 08:45 (Pill Splitter) 1 ea UNSCH PRN OTHER 01/26/18 08:45 (Apresoline) 25 mg BID PO 01/26/18 21:00 01/28/18 07:59 (Aspirin) 325 mg DAILY PO 01/26/18 14:45 01/28/18 07:58 (Catapres) 0.1 mg Q4H PRN PO 01/26/18 16:15 01/28/18 05:18 (Imdur) 60 mg DAILY@07 PO 01/28/18 07:00 01/28/18 06:14 (Xarelto) 20 mg DAILY PO 01/28/18 09:00 01/28/18 07:58 (Levemir Inj) 25 units Q12HR SQ 01/27/18 21:00 01/28/18 08:07 (Singulair) 10 mg HS PO 01/28/18 21:00 Vital Signs / I&O Vital Signs Date Time Temp Pulse Resp B/P (MAP) Pulse Ox O2 Delivery O2 Flow Rate FiO2 01/28/18 04:00 98.2 57 18 181/85 (117) 97 01/28/18 03:55 60 01/28/18 00:00 98.4 66 18 144/72 (96) 98 01/27/18 20:00 98.5 65 20 170/84 (112) 96 01/27/18 19:39 71 01/27/18 16:38 98.6 69 18 166/74 (104) 97 01/27/18 14:07 96 Room Air I/O 01/27/18 01/27/18 01/27/18 01/28/18 01/28/18 01/28/18 07:00 15:00 23:00 07:00 15:00 23:00 Intake Total 320 ml Balance 320 ml Intake Oral 320 ml # Voids 2 2 2 # Bowel Movements 0 1 Physical Exam GENERAL: SKIN: Warm and dry. HEAD: Atraumatic. Normocephalic. EYES: Pupils equal and round. No scleral icterus. ENT: No nasal bleeding or discharge. NECK: Trachea midline. No JVD. CARDIOVASCULAR: Regular rate and rhythm. no murmurs RESPIRATORY: No accessory muscle use. Clear to auscultation. Breath sounds equal bilaterally. GASTROINTESTINAL: Abdomen soft, non-tender, nondistended. MUSCULOSKELETAL: Extremities without clubbing, cyanosis, or edema. No obvious deformities. NEUROLOGICAL: Awake and alert. No obvious cranial nerve deficits. Normal speech. PSYCHIATRIC: Appropriate mood and affect; insight and judgment normal. Laboratory Laboratory Tests Test 01/28/18 05:38 Assessment and Plan Problem List: (1) CAD (coronary artery disease) ICD Codes: I25.10 - Atherosclerotic heart disease of lummi coronary artery without angina pectoris (2) Chest pain, atypical ICD Codes: R07.89 - Other chest pain Status: Acute Assessment and Plan 52 yo AAF with CAD and prior coronary stenting, diabetes, COPD, HTN and pulmonary embolism who presents with chest pain. CAD- s/p PCI showing branch vessel disease, RCA severe stenosis but small caliber. medical management at this point; consider repeat PCI to ostium of diagonal branch if symptoms persist. cont isosorbide, asa, statin, bb currently taking xarelto for P.E. feeling well. likely to be cleared for discharge today Adelia Sterling Jan 28, 2018 08:29
[2018-01-28] MEDS: ARIPiprazole 15 MG TAB PO SCH (08:30)
[2018-01-28] MEDS ORDERED: RIVAROXABAN 20 MG TAB PO SCH (09:00)
[2018-01-28 12:30] LABS: PHENYTOIN (DILANTIN) 3.7 MCG/ML (10.0-20.0)
[2018-01-28 12:32] LABS: CHOLESTEROL/ HDL RATIO 6.39 RATIO; HDL CHOLESTEROL 36.3 MG/DL (40.0-60.0)
--- NOTE | 2018-01-28 13:34 | HHI.DS ---
Discharge Summary Admission Date Jan 25, 2018 at 23:22 Discharge Date: Jan 28, 2018 Admitting Diagnosis cp r/o ACS (1) CAD (coronary artery disease) ICD Code: I25.10 - Atherosclerosis of coronary artery Status: Chronic Procedures cardiac cath Brief History - From Admission This is a 52-year-old female with history of CAD with stated stent in 2011, hypertension, hyperlipidemia, diabetes, tobacco abuse, lung nodules, prior CVA, COPD that presents to ED with complaint of chest discomfort and numbness/ tingling in her left arm. Her initial complaint was that her fingertips felt numb and funny. Had a tingling sensation going from her neck down into the left arm which she states is not unusual. States she has chronic neck and back pain and takes medication for that. When specifically asking about chest discomfort she then recalled that over the last 3 weeks she has had a central chest discomfort intermittently. Each discomfort last a few seconds. It is not brought on by activity. Is very random. At times she is short of breath and diaphoretic with it. No nausea. When asked if it is similar to when she needed her stent she replies "I do not remember." Not following a rubber flap cutter. Cannot recall last stress test but believes it was here. Upon reviewing records she had a nonischemic stress test August 2015. She had a 2D echo February 2017 with an EF of 45-50%. She is admitted to the chest pain center May 22, 2017 however left AMA without any further testing. CBC/BMP: 01/25/18219901/25/182199 Significant Findings Laboratory Tests Test 01/25/18 22:00 01/26/18 01:30 01/26/18 04:30 01/28/18 05:38 Lymphocytes (%) (Auto) 51.8 % (9.0-44.0) Prothrombin Time 9.7 SEC (9.8-11.6) Random Glucose 392 MG/DL (74-106) Albumin 3.3 GM/DL (3.4-5.0) Alkaline Phosphatase 182 U/L (45-117) Aspartate Amino Transf (AST/SGOT) 6 U/L (15-37) Estimat Glomerular Filtration Rate 71 ML/MIN (>89) Troponin I LESS THAN 0.02 NG/ML LESS THAN 0.02 NG/ML Phenytoin (Dilantin) Level 0.9 MCG/ML (10.0-20.0) Test 01/28/18 11:38 Triglycerides Level 206 MG/DL (42-150) Cholesterol Level 232 MG/DL (120-200) LDL Cholesterol 155 MG/DL (0-99) HDL Cholesterol 36.3 MG/DL (40.0-60.0) Phenytoin (Dilantin) Level 3.7 MCG/ML (10.0-20.0) Imaging Last Impressions Barium Swallow X-Ray 01/27/18 0000 Signed Impressions: Service Date/Time: Saturday, January 27, 2018 18:09 - CONCLUSION: 1. Mild nonspecific esophageal motility disorder with small sliding hiatal hernia. No obstruction. Robert Elliott MD Myocardial Perfusion Scan Nuc Med 01/26/18 0000 Signed Impressions: Service Date/Time: Friday, January 26, 2018 12:55 - CONCLUSION: 1. Abnormal myocardial perfusion scan with significant hypoperfusion during stress which reperfuses at rest. 2. Left ventricular dilatation and decreased ejection fraction. 3. Probable small fixed abnormality in the inferior wall. RISK CATEGORY: High (>3%% Annual Mortality Rate) Froilan Rodríguez MD Chest X-Ray 01/25/182152 Signed Impressions: Service Date/Time: Thursday, January 25, 2018 22:11 - CONCLUSION: No acute disease. Carlos Eduardo Bonner MD PE at Discharge GENERAL: This is a well-nourished, well-developed female patient, in no apparent distress. Sitting up in wheelchair. Awake and alert. SKIN: (+)scattered dark spots on upper back with superficial erosions, no evidence of infection. HEENT: Atraumatic, normocephalic. EOMI. Sclera anicteric. No nasal drainage. Trachea midline. MMM. CARDIOVASCULAR: Regular rate and rhythm without murmurs, gallops, or rubs. RESPIRATORY: Nonlabored. Clear to auscultation. Breath sounds equal bilaterally. No wheezes, rales, or rhonchi. GASTROINTESTINAL: Abdomen is soft, nontender, nondistended. MUSCULOSKELETAL: No obvious deformities. No pedal edema appreciated. NEUROLOGICAL: Awake and alert. Able to move all extremities spontaneously. Nonfocal. Speech is normal. PSYCHIATRIC: Appropriate mood and affect. Normal insight and judgement. Hospital Course Chest pain with abnormal stress test -CAD- s/p PCI showing branch vessel disease, RCA severe stenosis but small caliber. Cardiology recommended medical management at this point; consider repeat PCI to ostium of diagonal branch if symptoms persist. cont isosorbide, asa, statin and bb. Risk factor modification. LDL suboptimal increased lovastatin to 40 mg at bedtime -continuous cardiac monitoring Cardiomyopathy, no evidence of decompensation, previous echo with EF 45-50% 03/14 HTN, uncontrolled at admission HLD -Patient appears euvolemic. Continue to monitor for evidence of fluid overload. -Continue on lisinopril 40 mg daily, Lopressor 100 mg twice daily, Norvasc 10 mg daily, hydralazine 25 mg twice daily -Continue on statin daily Dysphagia -She passed swallowing evaluation. Tolerating regular diet. If symptoms persist outpatient follow-up with gastroenterology -Barium swallow with no specific motility disorder and hiatal hernia. Antireflux mechanism discussed with the patient. PPI. DM, poorly controlled -Blood sugar 392 admission -Accu-Chek and insulin sliding scale -last A1c in the system 13.3 07/07/17 -obtain new A1c currently pending -Patient normally takes Levemir 60 units twice daily. Continue Levemir 25u BID and adjust accordingly COPD, not in acute exacerbation Ongoing tobaccoism -discussed smoking cessation -Duonebs prn Seizure d/o -no seizure activity reported -continue on Dilantin will increase to 4 times a day home dose. Dilantin level subtherapeutic will give extra Dilantin 500 mg p.o. 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 Diagnosed with impetigo treated with Bactroban. No e/o infection. 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 -Consult wound care DVT prophylaxis -bilateral SCD/LI hose Pt Condition on Discharge: Stable Discharge Disposition: Discharge Home Discharge Time: > 30 minutes Discharge Instructions DIET: Follow Instructions for: Heart Healthy Diet, Diabetic Diet Speech Therapy-Diet Recommends: Regular Activities you can perform: Regular-No Restrictions Activities to Avoid: Driving Follow up Referrals: Cardiology - 1 Week Cardiology @ minor Gastroenterology - 2 Weeks Gastroenterology PCP Follow-up - 1 Week PCP Follow-up with Rand Yasmin New Orders: PHENYTOIN (DILANTIN) - 01/29/18 New Medications: Isosorbide Mononitrate ER (Isosorbide Mononitrate ER) 60 Mg Tab 60 MG PO DAILY@07 for Blood Pressure Management, #30 TAB Phenytoin Extended (Dilantin) 100 Mg Cap 100 MG PO QID for Control Seizures, #120 CAP Changed Medications: Lovastatin (Lovastatin) 20 Mg Tab 40 MG PO HS for Cholesterol Management, #90 TAB 1 Refill (Changed from: 20 MG) Continued Medications: Albuterol 8.5 GM Inh (Proair Hfa 8.5 GM Inh) 90 Mcg/Act Aer 2 PUFF INH Q4-6H PRN for SHORTNESS OF BREATH, #1 INHALER 2 Refills 108 mcg/actuation Albuterol Neb (Albuterol Neb) 2.5 Mg/3 Ml Neb 2.5 MG NEB Q4HR NEB PRN for SOB/WHEEZING, #60 NEBULE 0 Refills Amlodipine (Norvasc) 10 Mg Tab 10 MG PO DAILY for Blood Pressure Management, #30 TAB 0 Refills Aripiprazole (Abilify) 15 Mg Tab 15 MG PO DAILY, #60 TAB [address] (Aspirin 81) 81 Mg Tabdr 81 MG PO EVERY OTHER DAY, #60 TAB 2 Refills Buspirone (Buspirone) 5 Mg Tab 5 MG PO BID for Anxiety, TAB 0 Refills Fluticasone Nasal [place] (Fluticasone Nasal [place]) 50 Mcg/Act Naspr 50 MCG EACH NARE DAILY for Allergy Management, #1 BOTTLE 5 Refills 50 mcg/spray Hydralazine (Hydralazine) 100 Mg Tab 25 MG PO BID for Blood Pressure Management, TAB 0 Refills Take with meals Hydroxyzine Pamoate (Hydroxyzine Pamoate) 50 Mg Cap 50 MG PO BID, CAP 0 Refills Insulin Aspart Inj (Novolog Inj) 1,000 Unit/10 Ml Vial 0-25 UNITS SQ ACHS for Blood Sugar Management, #10 ML 3 Refills Max dose at bedtime:( )units; sugars less than 70,(0) units; sugars 150-199,(5) units; sugars 200-249,(10) units; sugars 250-299,(15) units; sugars 300-349,(20)units; sugars greater than 349,(25)units Insulin Detemir Inj (Levemir Inj) 1,000 unit/ 10 ML Vial 60 UNITS SQ BID for Blood Sugar Management, #4 VIAL 2 Refills Do not mix with any other Insulin. Ipratropium HFA 12.9 GM Inh (Atrovent HFA 12.9 GM Inh) 17 Mcg/Act Aer 2 PUFF INH QID, #1 INHALER 5 Refills Lisinopril (Lisinopril) 20 Mg Tab 40 MG PO DAILY, #60 TAB Loteprednol-Tobramycin Opth Drops (Zylet Opth Drops) 0.5-0.3 % Soln 1-2 DROP EACH EYE Q6H for Inflammation, #1 BOTTLE 0 Refills Metoprolol Tartrate (Metoprolol Tartrate) 100 Mg Tab 100 MG PO BID, #180 TAB 3 Refills Montelukast (Singulair) 10 Mg Tab 10 MG PO HS, #90 TAB 0 Refills Morphine-Naltrexone ER (Embeda) 20-0.8 Mg Caper 1 CAP PO DAILY for Pain Management, #30 CAP 0 Refills Omeprazole (Omeprazole) 40 Mg Cap 40 MG PO DAILY, #90 CAP 1 Refill Ondansetron Odt (Ondansetron Odt) 4 Mg Tab 4 MG SL Q8HR PRN for Nausea/Vomiting, TAB 0 Refills Oxycodone-Acetaminophen (Oxycodone-Acetaminophen) 10-325 mg Tab 1 TAB PO Q6H PRN for PAIN, TAB 0 Refills Paroxetine (Paroxetine) 30 Mg Tab 30 MG PO DAILY, #30 TAB 0 Refills Pregabalin (Lyrica) 150 Mg Cap 150 MG PO BID, #60 CAP 0 Refills Rivaroxaban (Xarelto) 20 Mg Tab 20 MG PO DAILY for Blood Clot Prevention, TAB 0 Refills Tizanidine (Tizanidine) 4 Mg Cap 4 MG PO TID for Muscle Spasm, CAP 0 Refills Triamcinolone Topical (Triamcinolone Topical) 0.1% Cream 1 APPLIC TOPICAL BID for Inflammation, #1 TUBE 0 Refills Zolpidem (Ambien) 10 Mg Tab 10 MG PO HS PRN for INSOMNIA, TAB 0 Refills Audie Leong MD Jan 28, 2018 13:34
[2018-01-28] MEDS ORDERED: PHENYTOIN SODIUM 100 MG CAP PO ONE (14:30)
[2018-01-28] MEDS ORDERED: LOVA20TA PO (15:01)
[2018-01-28] MEDS ORDERED: DILA100C PO (15:01)
[2018-01-28] MEDS ORDERED: ISOS60TA PO (15:01)
[2018-01-28 17:27] LABS: HEMOGLOBIN A1C 15.7 % (4.3-6.0)
[2018-01-28] MEDS ORDERED: PHENYTOIN SODIUM 100 MG CAP PO SCH (18:00)
[2018-01-28] MEDS ORDERED: MONTELUKAST SODIUM 10 MG TAB PO SCH (21:00)
== END 2018-01-28 15:30 | disposition home or self-care (01) ==
LOC: NEPC 21:37 → NEDA 23:22 → NEPHCDU 01-26 02:12 → HCIS 01-27 11:27 → N04B 01-27 13:53 → N04A 01-27 17:13
PROVIDERS: ADMIT Internal Medicine; ATTEND Internal Medicine
DX: R07.89 Other chest pain (principal); I25.10 Atherosclerotic heart disease of native coronary artery without angina pectoris; E11.65 Type 2 diabetes mellitus with hyperglycemia; J44.9 Chronic obstructive pulmonary disease, unspecified; R13.10 Dysphagia, unspecified; I42.9 Cardiomyopathy, unspecified; E78.5 Hyperlipidemia, unspecified; L01.00 Impetigo, unspecified; B95.61 Methicillin susceptible Staphylococcus aureus infection as the cause of diseases classified elsewhere; I11.0 Hypertensive heart disease with heart failure; M54.2 Cervicalgia; G40.909 Epilepsy, unspecified, not intractable, without status epilepticus; G89.29 Other chronic pain; M54.9 Dorsalgia, unspecified; R06.02 Shortness of breath; I50.9 Heart failure, unspecified; I25.2 Old myocardial infarction; D57.3 Sickle-cell trait; K21.9 Gastro-esophageal reflux disease without esophagitis; G47.30 Sleep apnea, unspecified; R11.0 Nausea; K31.84 Gastroparesis; E11.43 Type 2 diabetes mellitus with diabetic autonomic (poly)neuropathy; F17.200 Nicotine dependence, unspecified, uncomplicated; Z79.4 Long term (current) use of insulin; Z95.5 Presence of coronary angioplasty implant and graft; Z86.73 Personal history of transient ischemic attack (TIA), and cerebral infarction without residual deficits; Z86.711 Personal history of pulmonary embolism
CPT/HCPCS: 71045; 74230; 78452; 80053; 80061; 80185; 82550; 82552; 82948; 83036; 83690; 83735; 84484; 85025; 85610; 85730; 86403; 87070; 87186; 87205; 92610; 93005; 93017; 93454; 96361; 96372; 96374; 96375; 96376; 99152; 99285; A9502; C1769; C1893; G0378; G8996; G8997; G8998; J0360; J1644; J1815; J2250; J2270; J2405; J2785; J3010; J7040; Q9967

== ENCOUNTER 2018-02-15 16:47 | Emergency (ER) | payer MEDICAID ==
[~2018-02-15] VITALS: Ht 165.1 cm; Wt 73.0 kg
[~2018-02-15 16:47] MED LIST changes: -ADVA250A INH; +DILA100C PO; +ISOS60TA PO; +XARE20TA PO
[2018-02-15 16:51] VITALS: BP 215/95; PULSE 88; RESP 15; TEMP 98.6; O2SAT 100
--- NOTE | 2018-02-15 16:55 | PD ---
HPI Chief Complaint: Flank/Kidney Pain Time Seen by Provider: 16:55 Travel History International Travel<30 days: No Contact w/Intl Traveler<30days: No Traveled to known affect area: No History of Present Illness HPI 52-year-old female came to the emergency room with history of right upper quadrant and flank pain for past 2 days. Patient says that she takes morphine and oxycodone at home for chronic pain and that has not been helping with this pain. No history of nausea vomiting. No history of fever or chills. Patient seemed uncomfortable. Vital signs were stable. She has significant past medical history with multiple comorbidities. She has had her gallbladder taken out in the past. Patient says that the pain is worse when she is up and walking around. PFSH Past Medical History Narrative Medical List of her past medical, surgical, social and family history is reviewed from the nursing note Hx Anticoagulant Therapy: Yes Arthritis: Yes Asthma: Yes Autoimmune Disease: No Anxiety: Yes Depression: No Heart Rhythm Problems: No Cancer: Yes (UTERINE) Cardiac Catheterization: Yes (X4) Cardiovascular Problems: Yes High Cholesterol: Yes Chemotherapy: No Chest Pain: Yes Congestive Heart Failure: Yes COPD: Yes Cerebrovascular Accident: Yes (3 TIA) Coronary Artery Disease: Yes Diabetes: Yes Endocrine: Yes Gastrointestinal Disorders: Yes (GASTROPARESIS) GERD: Yes Genitourinary: No Hypertension: Yes Immune Disorder: No Musculoskeletal: Yes (chronic knee pain, chronic back pain) Neurologic: Yes (seizures) Psychiatric: Yes Reproductive: No Respiratory: Yes Immunizations Current: Yes Migraines: No Myocardial Infarction: Yes Radiation Therapy: No Seizures: Yes Sickle Cell Disease: Yes (SICKLE CELL TRAIT) Sleep Apnea: Yes Thyroid Disease: No Ulcer: Yes ?: Not Menopausal: Yes : 10 Para: 7 Miscarriage: 3 Past Surgical History Abdominal Surgery: Yes (GALL BLADDER) Body Medical Devices: rods and screws in neck Cardiac Surgery: Yes Section: Yes Cholecystectomy: Yes Coronary Stent: Yes (X2) Ear Surgery: No Endocrine Surgery: No Eye Surgery: No Genitourinary Surgery: No Gynecologic Surgery: Yes Hysterectomy: Yes Joint Replacement: Yes (left knee UPCOMING) Neurologic Surgery: Yes (NECK FUSED) Oral Surgery: No Thoracic Surgery: No Other Surgery: Yes (LEFT AXILLARY TUMOR REMOVED) Social History Alcohol Use: No Tobacco Use: Yes (E-CIG) Substance Use: No Allergies-Medications (Allergen,Severity, Reaction): Coded Allergies: ciprofloxacin (Unverified Allergy, Severe, SWELLING SOB, 02/15/18) erythromycin base (Unverified Allergy, Severe, SWELLING SOB, 02/15/18) tramadol (Unverified Allergy, Severe, rash, 02/15/18) vancomycin (Unverified Allergy, Severe, SWELLING AND SOB, 02/15/18) Comments List of her allergies reviewed from the nursing note Reported Meds & Prescriptions Reported Meds & Active Scripts Active Dilantin (Phenytoin Extended) 100 Mg Cap 100 Mg PO QID Isosorbide Mononitrate ER (Isosorbide Mononitrate) 60 Mg Tab 60 Mg PO DAILY@07 Lovastatin 20 Mg Tab 40 Mg PO HS Levemir Inj (Insulin Detemir) 1,000 unit/ 10 ML Vial 60 Units SQ BID Do not mix with any other Insulin. Fluticasone Nasal [place] 50 Mcg/Act Naspr 50 Mcg EACH NARE DAILY 50 mcg/spray Singulair (Montelukast Sodium) 10 Mg Tab 10 Mg PO HS Atrovent HFA 12.9 GM Inh (Ipratropium [place]) 17 Mcg/Act Aer 2 Puff INH QID Proair Hfa 8.5 GM Inh (Albuterol Sulfate) 90 Mcg/Act Aer 2 Puff INH Q4-6H PRN 108 mcg/actuation Lisinopril 20 Mg Tab 40 Mg PO DAILY Abilify (Aripiprazole) 15 Mg Tab 15 Mg PO DAILY Omeprazole 40 Mg Cap 40 Mg PO DAILY Novolog Inj (Insulin Aspart) 1,000 Unit/10 Ml Vial 0-25 Units SQ ACHS Max dose at bedtime:( )units; sugars less than 70,(0) units; sugars 150-199,(5) units; sugars 200-249,(10) units; sugars 250-299,(15) units; sugars 300-349,(20)units; sugars greater than 349,(25)units Metoprolol Tartrate 100 Mg Tab 100 Mg PO BID Albuterol Neb (Albuterol Sulfate) 2.5 Mg/3 Ml Neb 2.5 Mg NEB Q4HR NEB PRN Triamcinolone Topical (Triamcinolone Acetonide) 0.1% Cream 1 Applic TOPICAL BID Aspirin 81 (Aspirin) 81 Mg Tabdr 81 Mg PO EVERY OTHER DAY Reported Xarelto (Rivaroxaban) 20 Mg Tab 20 Mg PO DAILY Zylet Opth Drops (Loteprednol-Tobramycin Opth Drops) 0.5-0.3 % Soln 1-2 Drop EACH EYE Q6H Losartan (Losartan Potassium) 25 Mg Tab 25 Mg PO DAILY Hydralazine (Hydralazine HCl) 100 Mg Tab 25 Mg PO BID Take with meals Hydroxyzine Pamoate 50 Mg Cap 50 Mg PO BID Phenytoin Extended 100 Mg Cap 100 Mg PO TID Buspirone (Buspirone HCl) 5 Mg Tab 5 Mg PO BID Paroxetine (Paroxetine HCl) 30 Mg Tab 30 Mg PO DAILY Embeda (Morphine-Naltrexone ER) 20-0.8 Mg Caper 1 Cap PO DAILY Oxycodone-Acetaminophen 10-325 mg Tab 1 Tab PO Q6H PRN Lyrica (Pregabalin) 150 Mg Cap 150 Mg PO BID Tizanidine (Tizanidine HCl) 4 Mg Cap 4 Mg PO TID Ambien (Zolpidem Tartrate) 10 Mg Tab 10 Mg PO HS PRN Ondansetron Odt 4 Mg Tab 4 Mg SL Q8HR PRN Norvasc (Amlodipine Besylate) 10 Mg Tab 10 Mg PO DAILY Narrative Medication List of her home medications reviewed from the nursing note Review of Systems Except as stated in HPI: all other systems reviewed are Neg Gastrointestinal: Positive: Abdominal Pain Physical Exam Narrative GENERAL: Awake, alert, moderate distress SKIN: Focused skin assessment warm/dry. HEAD: Atraumatic. Normocephalic. EYES: Pupils equal and round. No scleral icterus. No injection or drainage. ENT: No nasal bleeding or discharge. Mucous membranes pink and moist. NECK: Trachea midline. No JVD. CARDIOVASCULAR: Regular rate and rhythm. No murmur appreciated. RESPIRATORY: No accessory muscle use. Clear to auscultation. Breath sounds equal bilaterally. GASTROINTESTINAL: Abdomen soft, right upper quadrant tenderness, nondistended. Hepatic and splenic margins not palpable. MUSCULOSKELETAL: No obvious deformities. No clubbing. No cyanosis. No edema. NEUROLOGICAL: Awake and alert. No obvious cranial nerve deficits. Motor grossly within normal limits. Normal speech. PSYCHIATRIC: Appropriate mood and affect; insight and judgment normal. Data Data Last Documented VS Vital Signs Date Time Temp Pulse Resp B/P (MAP) Pulse Ox O2 Delivery O2 Flow Rate FiO2 02/15/18 16:51 98.6 88 15 215/95 (135) 100 Orders Orders Complete Blood Count With Diff (02/15/18 17:03) Comprehensive Metabolic Panel (02/15/18 17:03) Lipase (02/15/18 17:03) Urinalysis - C+S If Indicated (02/15/18 17:03) Ct Abd/Pel W/O Iv Contrast (02/15/18 17:03) Iv Access Insert/Monitor (02/15/18 17:03) Ecg Monitoring (02/15/18 17:03) Oximetry (02/15/18 17:03) Ondansetron Inj (Zofran Inj) (02/15/18 17:15) Sodium Chloride 0.9% Flush (Ns Flush) (02/15/18 17:15) Morphine Inj (Morphine Inj) (02/15/18 17:15) Phenytoin (Dilantin) (02/15/18 17:04) Potassium Chloride (Kcl) (02/15/18 18:30) Sodium Chlor 0.9% 1000 Ml Inj (Ns 1000 M (02/15/18 18:30) Ed Discharge Order (02/15/18 19:08) Labs Laboratory Tests Test 02/15/18 17:20 White Blood Count 8.9 TH/MM3 Red Blood Count 4.49 MIL/MM3 Hemoglobin 12.3 GM/DL Hematocrit 36.6 % Mean Corpuscular Volume 81.6 FL Mean Corpuscular Hemoglobin 27.4 PG Mean Corpuscular Hemoglobin Concent 33.5 % Red Cell Distribution Width 13.5 % Platelet Count 300 TH/MM3 Mean Platelet Volume 8.1 FL Neutrophils (%) (Auto) 63.0 % Lymphocytes (%) (Auto) 29.1 % Monocytes (%) (Auto) 5.8 % Eosinophils (%) (Auto) 1.5 % Basophils (%) (Auto) 0.6 % Neutrophils # (Auto) 5.6 TH/MM3 Lymphocytes # (Auto) 2.6 TH/MM3 Monocytes # (Auto) 0.5 TH/MM3 Eosinophils # (Auto) 0.1 TH/MM3 Basophils # (Auto) 0.1 TH/MM3 CBC Comment DIFF FINAL Differential Comment Urine Color YELLOW Urine Turbidity CLEAR Urine pH 6.0 Urine Specific [place] 1.042 Urine Protein 30 mg/dL Urine Glucose (UA) 1000 mg/dL Urine Ketones NEG mg/dL Urine Occult Blood NEG Urine Nitrite NEG Urine Bilirubin NEG Urine Urobilinogen 2.0 MG/DL Urine Leukocyte Esterase NEG Urine RBC 2 /hpf Urine WBC 1 /hpf Urine Squamous Epithelial Cells 2 /hpf Urine Mucus FEW /lpf Microscopic Urinalysis Comment CULT NOT INDICATED Blood Urea Nitrogen 8 MG/DL Creatinine 0.81 MG/DL Random Glucose 336 MG/DL Total Protein 7.6 GM/DL Albumin 2.9 GM/DL Calcium Level 8.0 MG/DL Alkaline Phosphatase 178 U/L Aspartate Amino Transf (AST/SGOT) 8 U/L Alanine Aminotransferase (ALT/SGPT) 10 U/L Total Bilirubin 0.2 MG/DL Sodium Level 141 MEQ/L Potassium Level 3.1 MEQ/L Chloride Level 106 MEQ/L Carbon Dioxide Level 25.5 MEQ/L Anion Gap 10 MEQ/L Estimat Glomerular Filtration Rate 89 ML/MIN Lipase 33 U/L Phenytoin (Dilantin) Level 1.1 MCG/ML MDM Medical Decision Making Medical Screen Exam Complete: Yes Emergency Medical Condition: Yes Medical Record Reviewed: Yes Differential Diagnosis Renal colic, musculoskeletal pain Narrative Course 7:06 PM blood test results are back. Patient has hyperglycemia, hypokalemia and glucosuria. CT scan of the abdomen and pelvis did not show any acute abnormalities that could explain the pain. Patient was medicated for her pain and given IV fluid bolus. I am ready to discharge her home at this point Procedures EKG Prior to Arrival: No Diagnosis Primary Impression: Musculoskeletal pain Additional Impressions: Hypokalemia Hyperglycemia Referrals: Primary Care Physician 2 days Additional Instructions: Follow-up with your primary care physician. Please check your sugar and take your insulin as per recommendation. Return to the ER if condition worsens or any other new concerns. Med/Other Pt SpecificInfo: No Change to Meds Disposition: 01 DISCHARGE HOME Condition: Stable Tommy Rico MD Feb 15, 2018 16:55
[2018-02-15] MEDS ORDERED: MORPHINE SULFATE 8 MG/ML INJ IV PUSH ONE (17:15)
[2018-02-15] MEDS ORDERED: ONDANSETRON HCL 4 MG/2 ML VIAL IVP ONE (17:15)
[2018-02-15] MEDS ORDERED: SODIUM CHLORIDE 0.9% FLUSH 10 ML FLUSH IV FLUSH PRN (17:15)
[2018-02-15 17:48] LABS: AUTOMATED NEUTROPHIL # 5.6 TH/MM3 (1.8-7.7); BASOPHIL # 0.1 TH/MM3 (0-0.2); BASOPHIL % 0.6 % (0.0-2.0); EOSINOPHIL # 0.1 TH/MM3 (0-0.4); EOSINOPHIL % 1.5 % (0.0-4.0); HEMATOCRIT 36.6 % (35.0-46.0); HEMOGLOBIN 12.3 GM/DL (11.6-15.3); LYMPH % 29.1 % (9.0-44.0); LYMPHOCYTE # 2.6 TH/MM3 (1.0-4.8); MEAN CELL VOLUME 81.6 FL (80.0-100.0); MEAN CORPUSCULAR HEMOGLOBIN 27.4 PG (27.0-34.0); MEAN CORPUSCULAR HGB CONC 33.5 % (32.0-36.0); MEAN PLATELET VOLUME 8.1 FL (7.0-11.0); MONO % 5.8 % (0.0-8.0); MONOCYTE # 0.5 TH/MM3 (0-0.9); PLATELET COUNT 300 TH/MM3 (150-450); RED BLOOD COUNT 4.49 MIL/MM3 (4.00-5.30); RED CELL DISTRIBUTION WIDTH 13.5 % (11.6-17.2); WHITE BLOOD COUNT 8.9 TH/MM3 (4.0-11.0)
[2018-02-15 18:01] LABS: BILIRUBIN, URINE NEG (NEG); BLOOD, URINE NEG (NEG); GLUCOSE,URINE 1000 mg/dL (NEG); KETONE, URINE NEG (NEG); MUCUS URINE FEW /lpf (OCC); NITRITE,URINE NEG (NEG); SQUAMOUS EPITHELIAL CELL URINE 2 /hpf (0-5); URINE COLOR YELLOW (YELLW/STRAW); URINE LEUKOCYTE ESTERASE NEG (NEG)
[2018-02-15 18:21] LABS: ALBUMIN 2.9 GM/DL (3.4-5.0); AST (GOT) 8 U/L (15-37); BICARBONATE 25.5 MEQ/L (21.0-32.0); BLOOD UREA NITROGEN 8 MG/DL (7-18); CHLORIDE 106 MEQ/L (98-107); CREATININE 0.81 MG/DL (0.50-1.00); GLOMERULAR FILTRATION RATE 89 ML/MIN (>89); GLUCOSE,RANDOM 336 MG/DL (74-106); SODIUM (NA) 141 MEQ/L (136-145)
[2018-02-15 18:22] LABS: ALT (GPT) 10 U/L (10-53)
[2018-02-15 18:24] LABS: ALKALINE PHOSPHATASE 178 U/L (45-117); TOTAL BILIRUBIN ADULT 0.2 MG/DL (0.2-1.0); TOTAL PROTEIN 7.6 GM/DL (6.4-8.2)
[2018-02-15] MEDS ORDERED: POTASSIUM CHLORIDE 20 MEQ CONTROLLED RELEASE TAB PO ONE (18:30)
[2018-02-15] MEDS ORDERED: SODIUM CHLOR 0.9% 1000 ML INJ 1,000 ML IV ONE (18:30)
--- NOTE | 2018-02-15 18:35 | RADRPT ---
EXAM DATE/TIME: 02/15/2018 18:07 [place] COMPARISON: No previous studies available for comparison. INDICATIONS : Right flank pain. ORAL CONTRAST: No oral contrast ingested. RADIATION DOSE: 9.96 CTDIvol (mGy) MEDICAL HISTORY : Cardiovascular disease. Stroke Hypertension. SURGICAL HISTORY : Hysterectomy. Cholecystectomy. ENCOUNTER: Initial ACUITY: 2 days PAIN SCALE: 6/10 LOCATION: Right flank TECHNIQUE: Volumetric scanning of the abdomen and pelvis was performed. Using automated exposure control and ad justment of the mA and/or kV according to patient size, radiation dose was kept as low as reasonably achievable to obtain optimal diagnostic quality images. DICOM format image data is available electro nically for review and comparison. FINDINGS: Lung bases are clear. No pleural or pericardial effusion. No acute findings in the liver, spleen, adrenals or pancreas. Previous cholecystectomy. Probable 2 cm left renal cyst. Tiny nonobstructing vascular calcifications in both kidneys. No free fluid. No bowel obstruction. No adenopathy. Appendix appears normal. Mild constipation. Previ ous hysterectomy. CONCLUSION: 1. No acute findings. Small renal vascular calcifications bilaterally. No obstructive uropathy. 2. Postoperative cholecystectomy and hysterectomy. 3. Mild constipation. Robert Elliott MD on February 15, 2018 at 18:27 Board Certified Radiologist. This report was verified electronically.
== END 2018-02-15 20:06 | disposition home or self-care (01) ==
LOC: NEPD 16:47
DX: M79.1 Myalgia (principal); E87.6 Hypokalemia; E11.65 Type 2 diabetes mellitus with hyperglycemia; R10.11 Right upper quadrant pain; I10 Essential (primary) hypertension; J44.9 Chronic obstructive pulmonary disease, unspecified; E78.00 Pure hypercholesterolemia, unspecified; K21.9 Gastro-esophageal reflux disease without esophagitis; I50.9 Heart failure, unspecified; I25.10 Atherosclerotic heart disease of native coronary artery without angina pectoris; F41.9 Anxiety disorder, unspecified; I25.2 Old myocardial infarction; G47.30 Sleep apnea, unspecified; Z72.0 Tobacco use; Z79.01 Long term (current) use of anticoagulants; Z79.4 Long term (current) use of insulin; Z87.39 Personal history of other diseases of the musculoskeletal system and connective tissue; Z86.69 Personal history of other diseases of the nervous system and sense organs
CPT/HCPCS: 74176; 80053; 80185; 81001; 83690; 85025; 96374; 96375; 99284; J2270; J2405; J7030

== ENCOUNTER 2018-03-03 08:03 | Emergency (ER) | payer MEDICAID ==
[~2018-03-03] VITALS: Ht 165.1 cm; Wt 73.0 kg
[2018-03-03 08:07] VITALS: BP 229/106; PULSE 96; RESP 18; TEMP 99; O2SAT 100
[2018-03-03] MEDS ORDERED: LOSA50TA PO (08:26)
[2018-03-03 08:41] VITALS: PULSE 88; RESP 18; O2SAT 99
[2018-03-03] MEDS ORDERED: ONDANSETRON ODT 4 MG TAB PO ONE (08:45)
[2018-03-03] MEDS ORDERED: SODIUM CHLOR 0.9% 1000 ML INJ 1,000 ML IV ONE (08:45)
[2018-03-03] MEDS ORDERED: oxyCODONE/ACETAMINOPHEN 5 MG/325 MG TAB PO ONE (08:45)
[2018-03-03 08:48] LABS: AUTOMATED NEUTROPHIL # 4.1 TH/MM3 (1.8-7.7); BASOPHIL # 0.1 TH/MM3 (0-0.2); BASOPHIL % 0.9 % (0.0-2.0); EOSINOPHIL # 0.1 TH/MM3 (0-0.4); EOSINOPHIL % 1.6 % (0.0-4.0); HEMATOCRIT 39.1 % (35.0-46.0); LYMPH % 40.9 % (9.0-44.0); LYMPHOCYTE # 3.3 TH/MM3 (1.0-4.8); MEAN CELL VOLUME 81.7 FL (80.0-100.0); MEAN CORPUSCULAR HEMOGLOBIN 27.2 PG (27.0-34.0); MEAN CORPUSCULAR HGB CONC 33.3 % (32.0-36.0); MEAN PLATELET VOLUME 8.7 FL (7.0-11.0); MONO % 6.4 % (0.0-8.0); MONOCYTE # 0.5 TH/MM3 (0-0.9); NEUT % 50.2 % (16.0-70.0); PLATELET COUNT 352 TH/MM3 (150-450); RED BLOOD COUNT 4.79 MIL/MM3 (4.00-5.30); RED CELL DISTRIBUTION WIDTH 13.6 % (11.6-17.2); WHITE BLOOD COUNT 8.2 TH/MM3 (4.0-11.0)
[2018-03-03 08:50] LABS: BACTERIA, URINE RARE /hpf; BILIRUBIN, URINE NEG (NEG); BLOOD, URINE NEG (NEG); GLUCOSE,URINE 1000 mg/dL (NEG); KETONE, URINE NEG (NEG); NITRITE,URINE NEG (NEG); PH, URINE 6.5 (5.0-8.5); SQUAMOUS EPITHELIAL CELL URINE <1 /hpf (0-5); URINE COLOR LIGHT-YELLOW (YELLW/STRAW); URINE LEUKOCYTE ESTERASE NEG (NEG)
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
[2018-03-03 09:05] LABS: ALKALINE PHOSPHATASE 176 U/L (45-117); TOTAL BILIRUBIN ADULT 0.3 MG/DL (0.2-1.0); TOTAL PROTEIN 7.9 GM/DL (6.4-8.2)
[2018-03-03 09:07] LABS: ALBUMIN 3.5 GM/DL (3.4-5.0); ALT (GPT) 13 U/L (10-53); AST (GOT) 10 U/L (15-37); BICARBONATE 25.1 MEQ/L (21.0-32.0); BLOOD UREA NITROGEN 7 MG/DL (7-18); CALCIUM 9.2 MG/DL (8.5-10.1); CHLORIDE 105 MEQ/L (98-107); CREATININE 0.82 MG/DL (0.50-1.00); GLOMERULAR FILTRATION RATE 88 ML/MIN (>89); GLUCOSE,RANDOM 365 MG/DL (74-106); SODIUM (NA) 138 MEQ/L (136-145)
[2018-03-03] MEDS ORDERED: INSULIN HUMAN REGULAR 1,000 UNITS/10 ML VIAL IV PUSH ONE (09:45)
[2018-03-03 09:47] VITALS: BP 191/87; PULSE 84; RESP 18; O2SAT 100
[2018-03-03] MEDS ORDERED: HYDR-4107 PO (10:56)
== END 2018-03-03 11:30 | disposition home or self-care (01) ==
LOC: NEPC 08:03
DX: R10.84 Generalized abdominal pain (principal); I16.0 Hypertensive urgency; G89.29 Other chronic pain; R11.10 Vomiting, unspecified; E11.65 Type 2 diabetes mellitus with hyperglycemia; F41.9 Anxiety disorder, unspecified; E78.00 Pure hypercholesterolemia, unspecified; I50.9 Heart failure, unspecified; I11.0 Hypertensive heart disease with heart failure; J44.9 Chronic obstructive pulmonary disease, unspecified; I25.10 Atherosclerotic heart disease of native coronary artery without angina pectoris; K21.9 Gastro-esophageal reflux disease without esophagitis; R56.9 Unspecified convulsions; D57.3 Sickle-cell trait; I25.2 Old myocardial infarction; Z79.4 Long term (current) use of insulin; Z88.1 Allergy status to other antibiotic agents; Z85.42 Personal history of malignant neoplasm of other parts of uterus
CPT/HCPCS: 80053; 81001; 83690; 84703; 85025; 96374; 99284; J1815; J7030

== ENCOUNTER 2018-05-30 13:01 | Inpatient (IN) ==
--- NOTE | 2018-05-30 13:35 | ED ---
HPI General Chief complaint: Recheck/Abnormal Lab/Rx Stated complaint: leg pain Time Seen by Provider: 05/30/18 13:20 Source: patient Mode of arrival: ambulatory Limitations: no limitations History of Present Illness HPI narrative: 52-year-old female presents emergency department for evaluation of bilateral lower extremity pain. She says that she was diagnosed with blood clots at [facility] 2 days ago and left AGAINST MEDICAL ADVICE prior to being discharged. Patient says she has had leg pain for about 2 weeks described as aching, burning and moderate in severity. She says that the bottom of her feet has been tingling for 2 weeks as well. She says that she has been taking Xarelto 20 mg for years and states compliance with his medication. She also says she has a history of pulmonary embolism and says she feels more short of breath than normal. Denies chest pain. Related Data Home Medications Medication Instructions Recorded Confirmed albuterol sulfate [ProAir HFA] 2 puff INHALATION Q4-6H PRN 05/30/18 05/30/18 amlodipine 10 mg PO DAILY 05/30/18 05/30/18 aripiprazole [Abilify] 15 mg PO DAILY 05/30/18 05/30/18 aspirin 81 mg PO EVERY OTHER DAY 05/30/18 05/30/18 buspirone 5 mg PO QID 05/30/18 05/30/18 fluticasone-salmeterol [Advair 1 inh INHALATION BID 05/30/18 05/30/18 Diskus] hydroxyzine pamoate [Vistaril] 50 mg PO DAILY 05/30/18 05/30/18 insulin asp prt-insulin aspart 1 sliding scale dose SUB-Q UD 05/30/18 05/30/18 [Novolog Mix 70-30 U-100 Insuln] insulin detemir U-100 [Levemir 60 unit SUB-Q BID 05/30/18 05/30/18 U-100 Insulin] ipratropium bromide [Atrovent HFA] 2 puff INHALATION QID 05/30/18 05/30/18 isosorbide mononitrate 30 mg PO DAILY 05/30/18 05/30/18 losartan 50 mg PO DAILY 05/30/18 05/30/18 lovastatin 20 mg PO QPM 05/30/18 05/30/18 metoprolol tartrate 100 mg PO BID 05/30/18 05/30/18 montelukast [Singulair] 10 mg PO QPM 05/30/18 05/30/18 morphine-naltrexone [Embeda] 1 cap PO Q24H 05/30/18 05/30/18 omeprazole 40 mg PO DAILY 05/30/18 05/30/18 ondansetron 4 mg PO Q3HR 05/30/18 05/30/18 oxycodone 15 mg PO Q6HR 05/30/18 05/30/18 phenytoin sodium extended 200 mg PO BID 05/30/18 05/30/18 [Dilantin Extended] pregabalin [Lyrica] 150 mg PO BID 05/30/18 05/30/18 rivaroxaban [Xarelto] 20 mg PO QPM 05/30/18 05/30/18 tizanidine 4 mg PO Q8HR PRN 05/30/18 05/30/18 tobramycin-lotepred [Zylet] 1 drp LEFT EYE Q4HR 05/30/18 05/30/18 zolpidem [Ambien] 10 mg PO HS 05/30/18 05/30/18 Allergies Allergy/AdvReac Type Severity Reaction Status Date / Time ciprofloxacin Allergy Severe SWELLING Verified 05/30/18 13:57 SOB erythromycin base Allergy Severe SWELLING Verified 05/30/18 13:57 SOB tramadol Allergy Severe rash Verified 05/30/18 13:57 vancomycin Allergy Severe SWELLING Verified 05/30/18 13:58 AND SOB Review of Systems Except as stated in HPI: all other systems reviewed are negative FOR[facility]LY [facility], [facility] Medical History Medical History COPD (chronic obstructive pulmonary disease) (Acute) Chronic pain (Acute) DVT (deep venous thrombosis) (Acute) Diabetes (Acute) HTN (hypertension) (Acute) Pulmonary embolism (Acute) Surgical History Surgical History History of cardiac cath (Acute) Family History Family History Other CAD (coronary artery disease) Social History Social History Second Hand Smoke Exposure: No Smoking Status: Smoker, status unknown Tobacco Type: Cigarettes Packs Per Day: 1.5 Cigarettes Per Day: 30.0 How Often Do You Have a Drink Containing Alcohol: Never Recent Out of Country Travel within the Last 8 Weeks: No Exam Narrative Exam Narrative: GENERAL: Well-developed, well-nourished no apparent distress SKIN: Focused skin assessment warm/dry. HEAD: Atraumatic. Normocephalic. EYES: Pupils equal and round. No scleral icterus. No injection or drainage. ENT: No nasal bleeding or discharge. Mucous membranes pink and moist. NECK: Trachea midline. No JVD. CARDIOVASCULAR: Regular rate and rhythm. No murmur appreciated. RESPIRATORY: No accessory muscle use. Clear to auscultation. Breath sounds equal bilaterally. GASTROINTESTINAL: Abdomen soft, non-tender, nondistended. Hepatic and splenic margins not palpable. MUSCULOSKELETAL: No obvious deformities. No clubbing. No cyanosis. No edema. bilateral lower extremities- no edema or erythema, mild TTP, neurovascularly intact NEUROLOGICAL: Awake and alert. No obvious cranial nerve deficits. Motor grossly within normal limits. Normal speech. PSYCHIATRIC: Appropriate mood and affect; insight and judgment normal. Course Initial Documented Vital Signs Temperature 98.7 F 05/30/18 13:03 Pulse Rate 97 H 05/30/18 13:03 Respiratory Rate 18 05/30/18 13:03 Blood Pressure 226/107 H 05/30/18 13:03 Pulse Oximetry 100 05/30/18 13:03 Last Documented Vital Signs Temperature 98.7 F 05/30/18 13:03 Pulse Rate 78 05/30/18 18:51 Respiratory Rate 18 05/30/18 18:51 Blood Pressure 188/80 H 05/30/18 18:51 Pulse Oximetry 97 05/30/18 15:22 Medical Decision Making JUSTIN Attestation JUSTIN supervised visit: Yes Attestation: I was present with the advanced practitioner during the management of this patient. I discussed the case with the advanced practitioner and agree with the findings and plan as documented in their note except as noted below. 52yF presenting with recent diagnosis of bilateral LE DVT. The patient states that she was found to have bilateral DVTs at [facility] several days ago but signed out against medical advice. She says that she has been on Xarelto for a number of years for PE. She reports "burning" pain to both lower extremities/ feet. Well-appearing, no acute distress NCAT, PERRL RRR Lungs CTAB, normal work of breathing Abdomen soft and non-tender GCS 15, no focal neuro deficits No lower extremity edema A/P: 52yF presenting with reported bilateral LE DVTs EKG and monitor Labs US CTA chest MDM Narrative Medical decision making narrative: 52y female presents to the ED c/o bilateral DVTs and increased shortness of breath for several days. She states compliance with Xarelto 20mg QD. Upon evaluation, her DVT and PE studies as negative. Her troponin is elevated at 0.08. Patient apparently had a heart cath January 2018. No apparent stent placement at that time as a hyperion analyst believe medical management was her best course of action. I also reviewed the lab values and her hemoglobin A1c was 15.7 in January. Patient appears to be in uncontrolled diabetic and likely contributes to her current condition. I suspect patient has peripheral neuropathy contributing to her leg pain. The hyperion analyst made a recommendation regarding daily nitrates which is on patient's medication list. I question her compliance with all of her medications at this point. Patient takes aspirin daily and did take medication this morning. Pt admitted to Dr. Leong for monitoring. Recommend trending troponin and EKGs. Lab Data Result diagrams: 05/30/18 13:49 05/30/18 13:49 Lab Results 05/30/18 05/30/18 05/30/18 Range/Units 13:49 13:49 13:49 WBC 7.2 (4.0-11.0) th/mm3 RBC 4.61 (4.00-5.30) mil/mm3 Hgb 12.4 (11.6-15.3) gm/dL Hct 38.2 (35.0-46.0) % MCV 82.8 (80.0-100.0) fL MCH 26.8 L (27.0-34.0) pg MCHC 32.4 (32.0-36.0) % RDW 14.4 (11.6-17.2) % Plt Count 322 (150-450) th/mm3 MPV 7.9 (7.0-11.0) fL Neut % (Auto) 45.8 (16.0-70.0) % Lymph % (Auto) 45.2 H (9.0-44.0) % [place] % (Auto) 5.9 (0.0-8.0) % Eos % (Auto) 2.3 (0.0-4.0) % Baso % (Auto) 0.8 (0.0-2.0) % Neut # (Auto) 3.3 (1.8-7.7) th/mm3 Lymph # (Auto) 3.3 (1.0-4.8) th/mm3 [place] # (Auto) 0.4 (0.0-0.9) th/mm3 Eos # (Auto) 0.2 (0.0-0.4) th/mm3 Baso # (Auto) 0.1 (0.0-0.2) th/mm3 WBC Differential . Differential Comment Auto diff final PT 10.0 (9.8-11.6) sec INR 1.0 Ratio APTT 27.8 (24.3-30.1) sec Sodium 137 (136-145) meq/L Potassium 3.6 (3.5-5.1) meq/L Chloride 102 (98-107) meq/L Carbon Dioxide 28.5 (21.0-32.0) meq/L Anion Gap 7 (5-15) meq/L BUN 13 (7-18) mg/dL Creatinine 0.76 (0.50-1.00) mg/dL Estimated GFR Greater than 89 (>89) mL/min POC Glucose (68-110) mg/dl Random Glucose 272 H (74-106) mg/dL Calcium 9.2 (8.5-10.1) mg/dL Total Bilirubin 0.2 (0.2-1.0) mg/dL AST 15 (15-37) U/L ALT 17 (10-53) U/L Alkaline Phosphatase 157 H (45-117) U/L Troponin I (0.02-0.05) ng/mL Total Protein 8.0 (6.4-8.2) g/dL Albumin 3.6 (3.4-5.0) g/dL Urine Opiates Screen (Neg) Ur Barbiturates Screen (Neg) Phenytoin (10.0-20.0) mcg/mL Ur Amphetamines Screen (Neg) U Benzodiazepines Scrn (Neg) Urine Cocaine Screen (Neg) U Cannabinoids Screen (Neg) 05/30/18 05/30/18 05/30/18 Range/Units 13:49 13:49 16:37 WBC (4.0-11.0) th/mm3 RBC (4.00-5.30) mil/mm3 Hgb (11.6-15.3) gm/dL Hct (35.0-46.0) % MCV (80.0-100.0) fL MCH (27.0-34.0) pg MCHC (32.0-36.0) % RDW (11.6-17.2) % Plt Count (150-450) th/mm3 MPV (7.0-11.0) fL Neut % (Auto) (16.0-70.0) % Lymph % (Auto) (9.0-44.0) % [place] % (Auto) (0.0-8.0) % Eos % (Auto) (0.0-4.0) % Baso % (Auto) (0.0-2.0) % Neut # (Auto) (1.8-7.7) th/mm3 Lymph # (Auto) (1.0-4.8) th/mm3 [place] # (Auto) (0.0-0.9) th/mm3 Eos # (Auto) (0.0-0.4) th/mm3 Baso # (Auto) (0.0-0.2) th/mm3 WBC Differential Differential Comment PT (9.8-11.6) sec INR Ratio APTT (24.3-30.1) sec Sodium (136-145) meq/L Potassium (3.5-5.1) meq/L Chloride (98-107) meq/L Carbon Dioxide (21.0-32.0) meq/L Anion Gap (5-15) meq/L BUN (7-18) mg/dL Creatinine (0.50-1.00) mg/dL Estimated GFR (>89) mL/min POC Glucose 304 H (68-110) mg/dl Random Glucose (74-106) mg/dL Calcium (8.5-10.1) mg/dL Total Bilirubin (0.2-1.0) mg/dL AST (15-37) U/L ALT (10-53) U/L Alkaline Phosphatase (45-117) U/L Troponin I 0.08 H (0.02-0.05) ng/mL Total Protein (6.4-8.2) g/dL Albumin (3.4-5.0) g/dL Urine Opiates Screen (Neg) Ur Barbiturates Screen (Neg) Phenytoin 0.8 L (10.0-20.0) mcg/mL Ur Amphetamines Screen (Neg) U Benzodiazepines Scrn (Neg) Urine Cocaine Screen (Neg) U Cannabinoids Screen (Neg) 05/30/18 Range/Units 17:06 WBC (4.0-11.0) th/mm3 RBC (4.00-5.30) mil/mm3 Hgb (11.6-15.3) gm/dL Hct (35.0-46.0) % MCV (80.0-100.0) fL MCH (27.0-34.0) pg MCHC (32.0-36.0) % RDW (11.6-17.2) % Plt Count (150-450) th/mm3 MPV (7.0-11.0) fL Neut % (Auto) (16.0-70.0) % Lymph % (Auto) (9.0-44.0) % [place] % (Auto) (0.0-8.0) % Eos % (Auto) (0.0-4.0) % Baso % (Auto) (0.0-2.0) % Neut # (Auto) (1.8-7.7) th/mm3 Lymph # (Auto) (1.0-4.8) th/mm3 [place] # (Auto) (0.0-0.9) th/mm3 Eos # (Auto) (0.0-0.4) th/mm3 Baso # (Auto) (0.0-0.2) th/mm3 WBC Differential Differential Comment PT (9.8-11.6) sec INR Ratio APTT (24.3-30.1) sec Sodium (136-145) meq/L Potassium (3.5-5.1) meq/L Chloride (98-107) meq/L Carbon Dioxide (21.0-32.0) meq/L Anion Gap (5-15) meq/L BUN (7-18) mg/dL Creatinine (0.50-1.00) mg/dL Estimated GFR (>89) mL/min POC Glucose (68-110) mg/dl Random Glucose (74-106) mg/dL Calcium (8.5-10.1) mg/dL Total Bilirubin (0.2-1.0) mg/dL AST (15-37) U/L ALT (10-53) U/L Alkaline Phosphatase (45-117) U/L Troponin I (0.02-0.05) ng/mL Total Protein (6.4-8.2) g/dL Albumin (3.4-5.0) g/dL Urine Opiates Screen Pos H (Neg) Ur Barbiturates Screen Neg (Neg) Phenytoin (10.0-20.0) mcg/mL Ur Amphetamines Screen Neg (Neg) U Benzodiazepines Scrn Neg (Neg) Urine Cocaine Screen Neg (Neg) U Cannabinoids Screen Neg (Neg) Imaging Data Radiologist's impression: Chest CTA 05/30/18 13:29 CONCLUSION: 1. No CT evidence for pulmonary artery embolism. 2. Mild paraseptal emphysema at the lung apices. 3. Coronary artery stenting. Venous Doppler Study 05/30/18 13:29 CONCLUSION: 1. No DVT identified. ECG Data Attestation: I personally reviewed and interpreted this ECG as follows: Interpretation: Rate: 77 BPM Rhythm: Sinus [place]: Normal Intervals: Normal intervals, no blocks, QTc 420 ms Q waves: III, aVF T waves: Inverted in I and aVL, V5-V6 ST segments: J point elevation in V1-V3, no reciprocal depressions Impression: Abnormal EKG, no changes as compared to EKG from 01/25/2018. Discharge Plan Discharge Disposition Patient Disposition: 30 Still Patient Discharge Condition Condition: Stable Discharge Details Diagnosis: ACS (acute coronary syndrome) Physicians Team ED Provider: Lisa Anthony ED Midlevel Provider: Rae Fulton Primary Care Provider: Jossy Bridges Attending Provider: Audie Leong Status ED Status: Admitted Observation Patient
[2018-05-30 14:01] LABS: Baso # (Auto) 0.1 th/mm3 (0.0-0.2); Baso % (Auto) 0.8 % (0.0-2.0); Eos # (Auto) 0.2 th/mm3 (0.0-0.4); Eos % (Auto) 2.3 % (0.0-4.0); Hematocrit 38.2 % (35.0-46.0); Hemoglobin 12.4 gm/dL (11.6-15.3); Lymph # (Auto) 3.3 th/mm3 (1.0-4.8); Lymph % (Auto) 45.2 % (9.0-44.0); Mean Corpuscular HGB Conc 32.4 % (32.0-36.0); Mean Corpuscular Hemoglobin 26.8 pg (27.0-34.0); Mean Corpuscular Volume 82.8 fL (80.0-100.0); Mean Platelet Volume 7.9 fL (7.0-11.0); Mono # (Auto) 0.4 th/mm3 (0.0-0.9); Mono % (Auto) 5.9 % (0.0-8.0); Neut # (Auto) 3.3 th/mm3 (1.8-7.7); Neut % (Auto) 45.8 % (16.0-70.0); Platelet Count 322 th/mm3 (150-450); Red Blood Count 4.61 mil/mm3 (4.00-5.30); Red Cell Distribution Width 14.4 % (11.6-17.2); White Blood Count 7.2 th/mm3 (4.0-11.0)
[2018-05-30 14:10] LABS: Activated Partial Thrombo Time 27.8 sec (24.3-30.1)
[2018-05-30] MEDS ORDERED: Morphine Inj 4 MG/ML Vial IV.PUSH ONE (14:11)
[2018-05-30 14:21] LABS: Albumin 3.6 g/dL (3.4-5.0); Anion Gap 7 meq/L (5-15); Aspartate Aminotransferase 15 U/L (15-37); Blood Urea Nitrogen 13 mg/dL (7-18); Calcium 9.2 mg/dL (8.5-10.1); Carbon Dioxide 28.5 meq/L (21.0-32.0); Chloride 102 meq/L (98-107); Glomerular Filtration Rate Greater Than 89 mL/min (>89); Glucose,Random 272 mg/dL (74-106); Potassium 3.6 meq/L (3.5-5.1); Sodium 137 meq/L (136-145)
[2018-05-30 14:22] LABS: Alanine Aminotransferase 17 U/L (10-53)
[2018-05-30 14:24] LABS: Alkaline Phosphatase 157 U/L (45-117)
--- NOTE | 2018-05-30 14:30 | US ---
EXAM DATE: 05/30/2018 2:25 PM EDT AGE/SEX: 52 years / Female INDICATIONS: Bilateral leg pain. CLINICAL DATA: This is the patient's subsequent encounter. Patient reports that signs and symptoms h ave been present for 2 weeks and indicates a pain score of 2/10. MEDICAL/SURGICAL HISTORY: Deep venous thrombosis. Bilateral leg pain. None. COMPARISON: [facility] [place], [place] LEG LEFT VENOUS DOPPLER, 09/05/2016. . TECHNIQUE: Venous ultrasound of both lower extremities was performed from the inguinal ligament to t he proximal calf. Real-time, color Doppler and spectral tracing, compression and augmentation techni ques were used. FINDINGS: Right Leg: Normal compression of the deep venous system from the inguinal region to the proximal antonina f. No echogenic clot is seen. Normal response of the venous system to augmentation and respiration. Left Leg: Normal compression of the deep venous system from the inguinal region to the proximal calf . No echogenic clot is seen. Normal response of the venous system to augmentation and respiration. Other: Note is made of mildly prominent lymph nodes within the left groin. CONCLUSION: 1. No DVT identified. Electronically signed by: Phi Roque MD 05/30/2018 2:28 PM EDT
--- NOTE | 2018-05-30 15:15 | CT ---
EXAM DATE: 05/30/2018 2:52 PM EDT AGE/SEX: 52 years / Female INDICATIONS: Bilateral chest pain, history of bilateral deep vein thrombosis. CLINICAL DATA: This is the patient's initial encounter. Patient reports that signs and symptoms have been present for 2 days and indicates a pain score of 5/10. MEDICAL/SURGICAL HISTORY: Carcinoma, lung. . Cardiac stents. RADIATION DOSE: 10.76 CTDI (mGy) [place] [facility] [place]17/2017. . TECHNIQUE: Volumetric scanning was performed using a multi-row detector CT scanner during bolus infu bernard of 75 ml Omnipaque 350 (iohexol) nonionic water-soluble contrast as a single exam dose. The garcia a was post processed with a variety of visualization algorithms including full volume maximum intensi ty projection and sliding thin slab reformation. Using automated exposure control and adjustment of the mA and/or kV according to patient size, radiation dose was kept as low as reasonably achievable t o obtain optimal diagnostic quality images. DICOM format image data is available electronically for review and comparison. FINDINGS: Pulmonary Arteries: No filling defects are seen in the pulmonary arteries through the segmental vess els. The main pulmonary artery is normal in diameter. Lung: Mild paraseptal emphysema at the lung apices. No significant focal parenchymal opacity. Pleura: No effusion, significant pleural thickening or pneumothorax. Mediastinum: Coronary artery stent in place. Heart is unremarkable without significant pericardial e ffusion. There are subcentimeter mediastinal and right hilar nodes that do not meet strict CT size cr iteria. Similarly, subcentimeter axillary nodes are noted. Osseous Structures: No abnormal focal lytic or blastic bony lesions. Fixation hardware in the lower c ervical spine partially imaged. Other: Visulaized upper abdomen is unremarkable. CONCLUSION: 1. No CT evidence for pulmonary artery embolism. 2. Mild paraseptal emphysema at the lung apices. 3. Coronary artery stenting. Electronically signed by: Benito Chu MD 05/30/2018 3:13 PM EDT
[2018-05-30] MEDS ORDERED: Labetalol HCl Inj 100 MG/20 ML Vial IV.PUSH ONE (15:21)
[2018-05-30] MEDS ORDERED: hydrALAZINE HCl Inj 20 MG/ML Vial IV.PUSH PRN (16:11)
[2018-05-30] MEDS ORDERED: Acetaminophen 325 MG Tablet PO PRN ×2 (16:26→16:29)
[2018-05-30] MEDS ORDERED: Bisacodyl 10 MG Supp RECTAL PRN (16:26)
[2018-05-30] MEDS ORDERED: Naloxone Inj 0.4 MG/ML Vial IV.PUSH PRN (16:29)
--- NOTE | 2018-05-30 16:53 | P.HP ---
History of Present Illness Primary Care Physician: Jossy Bridges History of Present Illness: This is a 52 yo with hx of chronic pain, seizure disorder on Dilantin, PE/DVT on Xarelto, COPD, diabetes mellitus with neuropathy, hypertension and coronary artery disease status post PCI. Family history of coronary artery disease. She presents to the emergency room because she was diagnosed with bilateral lower extremity DVT 2 days ago at [facility]. She has been complaining of excruciating shocking pain in the bilateral lower extremities all the way to her groin and numbing discomfort of bilateral feet worse with ambulation. She has chronic neck and lower back pain was on morphine and oxycodone but ran out for 3 weeks now. Denies numbness or incontinence. Doppler sonogram in the ED was negative for DVT. She also complained of dyspnea on exertion also worse when she is sleeping associated with mild wheezing and dry cough for 2 days. CTA negative for PE. Patient also reports of constant left-sided headache scale of 6 out of 10 no change from previous associated with worsening blurred vision for 2 weeks history of cataract. Denies dizziness. BP has been severely elevated in the emergency department despite IV labetalol. She also has elevated troponin 0.08 denies anginal symptoms however ED staff concern of possible anginal equivalent. EKG tracing interpreted by me shows sinus rhythm with left atrial enlargement, Q waves in the inferior leads and nonspecific ST- T changes no significant change from previous. Claims to be compliant with medications. All other systems reviewed negative Review of Systems All other systems reviewed negative except as stated in HPI [facility] - Medical History Medical History: Medical History (Last Updated 05/30/18 @ 16:59 by Audie Leong MD) COPD (chronic obstructive pulmonary disease) Chronic pain DVT (deep venous thrombosis) Diabetes HTN (hypertension) Pulmonary embolism - Surgical History Surgical History: Surgical History (Last Updated 05/30/18 @ 16:59 by Audie Leong MD) History of cardiac cath - Family History Family History: Family History (Last Updated 05/30/18 @ 17:00 by Audie Leong MD) Other CAD (coronary artery disease) - Tobacco History Second Hand Smoke Exposure: No Tobacco Use In Past 30 Days: Yes Smoking Status: Smoker, status unknown Tobacco Type: Cigarettes Packs Per Day: 1.5 - Alcohol History How Often Do You Have a Drink Containing Alcohol: Never - Travel History Recent Travel Out of the Country Within the Last 8 Weeks: No - Immunization History Tetanus Immunization: Unsure Medications and Allergies Active Medications: Active Medications Acetaminophen (Tylenol) 650 mg PO Q4H PRN PRN Reason: Temp > 100.4 Acetaminophen (Tylenol) 650 mg PO Q6HR PRN PRN Reason: PAIN SCALE 1 TO 2 Al Hydroxide/Mg Hydroxide (Milk Of Magnesia Liq) 30 ml PO Q12H PRN PRN Reason: Mild Constipation Albuterol (Ventolin Hfa Inh) 2 puff INH Q4H PRN PRN Reason: Shortness Of Breath Amlodipine Besylate (Norvasc) 10 mg PO DAILY JAIRON Aripiprazole (Abilify) 15 mg PO DAILY JAIRON Aspirin (Ecotrin) 81 mg PO EVERY OTHER DAY JAIRON Bisacodyl (Dulcolax Supp) 10 mg RECTAL DAILY PRN PRN Reason: SEVERE CONSITIPATION Buspirone HCl (Buspar) 5 mg PO QID JAIRON Clonidine HCl (Catapres) 0.1 mg PO Q6H PRN PRN Reason: SEE LABEL COMMENTS Dextrose (D50w Vial) 50 ml IV.PUSH UNSCH PRN PRN Reason: PER HYPOGLYCEMIA PROTOCOL Enalaprilat (Vasotec Inj) 1.25 mg IV.PUSH Q6H PRN PRN Reason: SEE LABEL COMMENTS Glucagon (Glucagon Inj) 1 mg OTHER PRN PRN PRN Reason: for Hypoglycemia Protocol Hydralazine HCl (Apresoline Inj) 10 mg IV.PUSH Q6H PRN PRN Reason: SEE LABEL COMMENTS Hydroxyzine Pamoate (Vistaril) 50 mg PO DAILY [facility] Nicardipine HCl 25 mg/ Sodium (Chloride) 250 mls @ 50 mls/hr IV.CONT TITRATE PRN; Protocol PRN Reason: Per Protocol Insulin Aspart (Novolog Insulin Correctional Sugar Inj) 0 unit SQ ACHS JAIRON; Protocol Insulin Detemir (Levemir Inj) 60 unit SQ BID JAIRON Ipratropium [place] (Atroven Hfa Inh) 2 puff INH QID JAIRON Lactulose (Lactulose Liq) 30 ml PO DAILY PRN PRN Reason: SEVERE CONSITIPATION Losartan Potassium (Cozaar) 50 mg PO DAILY [facility] Metoprolol Tartrate (Lopressor) 100 mg PO BID [facility] Montelukast Sodium (Singulair) 10 mg PO QPM JAIRON Morphine Sulfate (Morphine Inj) 2 mg IV.PUSH Q3H PRN PRN Reason: BREAKTHROUGH PAIN Naloxone HCl (Narcan Inj) 0.4 mg IV.PUSH UNSCH PRN PRN Reason: SEE LABEL COMMENTS Nitroglycerin (Nitro-Bid 2% Oint) 1 inch TOPICAL Q6HR [facility] Non-Formulary Medication (Fluticasone-Salmeterol [Advair Diskus]) 1 inh INHALATION BID [facility] Non-Formulary Medication (Lovastatin [Lovastatin]) 20 mg PO QPM [facility] Non-Formulary Medication (Omeprazole [Omeprazole]) 40 mg PO DAILY [facility] Non-Formulary Medication (Pregabalin [Lyrica]) 150 mg PO BID [facility] Non-Formulary Medication (Tobramycin-Lotepred [Zylet]) 1 drp LEFT EYE Q4HR JAIRON Ondansetron HCl (Zofran Inj) 4 mg IV.PUSH Q6H PRN PRN Reason: NAUSEA OR VOMITING Oxycodone/Acetaminophen (Percocet 10/325 Mg) 1 tab PO Q6H PRN PRN Reason: PAIN SCALE 6 TO 10 Oxycodone/Acetaminophen (Percocet 5/325 Mg) 1 tab PO Q6H PRN PRN Reason: PAIN SCALE 3 TO 5 Phenytoin Sodium (Dilantin) 200 mg PO BID [facility] Rivaroxaban (Xarelto) 20 mg PO QPM [facility] Senna/Docusate Sodium (Ashley-Colace) 1 tab PO BID [facility] Sennosides (Senokot) 17.2 mg PO Q12H PRN PRN Reason: Moderate Constipation Sodium Chloride (Ns Flush) 2 ml IV.FLUSH UNSCH PRN PRN Reason: FLUSH AFTER USING IV ACCESS Sodium Chloride (Ns Flush) 2 ml IV.FLUSH BID [facility] Tizanidine HCl (Zanaflex) 4 mg PO Q8HR PRN PRN Reason: Muscle Pain Allergies Allergy/AdvReac Type Severity Reaction Status Date / Time ciprofloxacin Allergy Severe SWELLING Verified 05/30/18 13:57 SOB erythromycin base Allergy Severe SWELLING Verified 05/30/18 13:57 SOB tramadol Allergy Severe rash Verified 05/30/18 13:57 vancomycin Allergy Severe SWELLING Verified 05/30/18 13:58 AND SOB Home Medications Medication Instructions Recorded Confirmed Type albuterol sulfate [ProAir HFA] 2 puff INHALATION Q4-6H PRN 05/30/18 05/30/18 History amlodipine 10 mg PO DAILY 05/30/18 05/30/18 History aripiprazole [Abilify] 15 mg PO DAILY 05/30/18 05/30/18 History aspirin 81 mg PO EVERY OTHER DAY 05/30/18 05/30/18 History buspirone 5 mg PO QID 05/30/18 05/30/18 History fluticasone-salmeterol [Advair 1 inh INHALATION BID 05/30/18 05/30/18 History Diskus] hydroxyzine pamoate [Vistaril] 50 mg PO DAILY 05/30/18 05/30/18 History insulin asp prt-insulin aspart 1 sliding scale dose SUB-Q UD 05/30/18 05/30/18 History [Novolog Mix 70-30 U-100 Insuln] insulin detemir U-100 [Levemir 60 unit SUB-Q BID 05/30/18 05/30/18 History U-100 Insulin] ipratropium bromide [Atrovent HFA] 2 puff INHALATION QID 05/30/18 05/30/18 History isosorbide mononitrate 30 mg PO DAILY 05/30/18 05/30/18 History losartan 50 mg PO DAILY 05/30/18 05/30/18 History lovastatin 20 mg PO QPM 05/30/18 05/30/18 History metoprolol tartrate 100 mg PO BID 05/30/18 05/30/18 History montelukast [Singulair] 10 mg PO QPM 05/30/18 05/30/18 History morphine-naltrexone [Embeda] 1 cap PO Q24H 05/30/18 05/30/18 History omeprazole 40 mg PO DAILY 05/30/18 05/30/18 History ondansetron 4 mg PO Q3HR 05/30/18 05/30/18 History oxycodone 15 mg PO Q6HR 05/30/18 05/30/18 History phenytoin sodium extended 200 mg PO BID 05/30/18 05/30/18 History [Dilantin Extended] pregabalin [Lyrica] 150 mg PO BID 05/30/18 05/30/18 History rivaroxaban [Xarelto] 20 mg PO QPM 05/30/18 05/30/18 History tizanidine 4 mg PO Q8HR PRN 05/30/18 05/30/18 History tobramycin-lotepred [Zylet] 1 drp LEFT EYE Q4HR 05/30/18 05/30/18 History zolpidem [Ambien] 10 mg PO HS 05/30/18 05/30/18 History Exam Vital signs: Vital Signs 05/30/18 13:03 05/30/18 14:18 05/30/18 14:43 Temperature 98.7 F Pulse Rate 97 H Respiratory Rate 18 18 18 Blood Pressure 226/107 H 212/38 H Pulse Oximetry 100 05/30/18 15:22 05/30/18 15:38 05/30/18 16:06 Temperature Pulse Rate 82 77 84 Respiratory Rate 18 Blood Pressure 220/103 H 201/93 H 204/81 H Pulse Oximetry 97 Intake & Output 05/29/18 05/30/18 05/30/18 18:59 06:59 18:59 Weight 72.575 kg Narrative: GENERAL: Well-developed and well-nourished in no distress SKIN: Warm and dry. HEAD: Atraumatic. Normocephalic. EYES: Pupils equal and round. No scleral icterus. No injection or drainage. ENT: No nasal bleeding or discharge. Mucous membranes pink and moist. NECK: Trachea midline. No JVD. CARDIOVASCULAR: Regular rate and rhythm. RESPIRATORY: No accessory muscle use. Clear to auscultation. Breath sounds equal bilaterally. GASTROINTESTINAL: Abdomen soft, non-tender, nondistended. MUSCULOSKELETAL: Extremities without clubbing, cyanosis, or edema. No obvious deformities. Neurovascularly intact NEUROLOGICAL: Awake and alert. No obvious cranial nerve deficits. Motor grossly within normal limits. Five out of 5 muscle strength in the arms and legs. Normal speech. PSYCHIATRIC: Appropriate mood and affect; insight and judgment normal. Results - Labs CBC & Chem 7: 05/30/18 13:49 05/30/18 13:49 Labs: Laboratory Results - last 24 hr 05/30/18 05/30/18 05/30/18 13:49 13:49 13:49 WBC 7.2 RBC 4.61 Hgb 12.4 Hct 38.2 MCV 82.8 MCH 26.8 L MCHC 32.4 RDW 14.4 Plt Count 322 MPV 7.9 Neut % (Auto) 45.8 Lymph % (Auto) 45.2 H [place] % (Auto) 5.9 Eos % (Auto) 2.3 Baso % (Auto) 0.8 Neut # (Auto) 3.3 Lymph # (Auto) 3.3 [place] # (Auto) 0.4 Eos # (Auto) 0.2 Baso # (Auto) 0.1 WBC Differential . Differential Comment Auto diff final PT 10.0 INR 1.0 APTT 27.8 Sodium 137 Potassium 3.6 Chloride 102 Carbon Dioxide 28.5 Anion Gap 7 BUN 13 Creatinine 0.76 Estimated GFR Greater than 89 Random Glucose 272 H Calcium 9.2 Total Bilirubin 0.2 AST 15 ALT 17 Alkaline Phosphatase 157 H Troponin I Total Protein 8.0 Albumin 3.6 05/30/18 13:49 WBC RBC Hgb Hct MCV MCH MCHC RDW Plt Count MPV Neut % (Auto) Lymph % (Auto) [place] % (Auto) Eos % (Auto) Baso % (Auto) Neut # (Auto) Lymph # (Auto) [place] # (Auto) Eos # (Auto) Baso # (Auto) WBC Differential Differential Comment PT INR APTT Sodium Potassium Chloride Carbon Dioxide Anion Gap BUN Creatinine Estimated GFR Random Glucose Calcium Total Bilirubin AST ALT Alkaline Phosphatase Troponin I 0.08 H Total Protein Albumin - Imaging Impressions Chest CTA 05/30/18 13:29 CONCLUSION: 1. No CT evidence for pulmonary artery embolism. 2. Mild paraseptal emphysema at the lung apices. 3. Coronary artery stenting. Venous Doppler Study 05/30/18 13:29 CONCLUSION: 1. No DVT identified. Caprini VTE Risk Assessment Caprini VTE Risk Assessment: Moderate/High Risk (score >= 2) Caprini Risk Assessment Model: Point Value = 1 Point Value = 2 Point Value = 3 Point Value = 5 Age 41-60 Minor surgery BMI > 25 kg/m2 Swollen legs Varicose veins or History of unexplained or recurrent spontaneous Oral contraceptives or hormone replacement Sepsis (< 1 month) Serious lung disease, including pneumonia (< 1 month) Abnormal pulmonary function Acute myocardial infarction Congestive heart failure (< 1 month) History of inflammatory bowel disease Medical patient at bed rest Age 61-74 Arthroscopic surgery Major open surgery (> 45 min) Laparoscopic surgery (> 45 min) Malignancy Confined to bed (> 72 hours) Immobilizing plaster cast Central venous access Age >= 75 History of VTE Family history of VTE Factor V Leiden Prothrombin [id number] Lupus anticoagulant Anticardiolipin antibodies Elevated serum homocysteine Heparin-induced thrombocytopenia Other congenital or acquired thrombophilia Stroke (< 1 month) Elective arthroplasty Hip, pelvis, or leg fracture Acute spinal cord injury (< 1 month) Prophylaxis Regimen: Total Risk Factor Score Risk Level Prophylaxis Regimen 0-1 Low Early ambulation 2 Moderate Order ONE of the following: *Sequential Compression Device (SCD) *Heparin 5000 units SQ BID 3-4 Higher Order ONE of the following medications: *Heparin 5000 units SQ TID *Enoxaparin/Lovenox 40 mg SQ daily (WT < 150 kg, CrCl > 30 mL/min) *Enoxaparin/Lovenox 30 mg SQ daily (WT < 150 kg, CrCl > 10-29 mL/min) *Enoxaparin/Lovenox 30 mg SQ BID (WT < 150 kg, CrCl > 30 mL/min) AND/OR *Sequential Compression Device (SCD) 5 or more Highest Order ONE of the following medications: *Heparin 5000 units SQ TID (Preferred with Epidurals) *Enoxaparin/Lovenox 40 mg SQ daily (WT < 150 kg, CrCl > 30 mL/min) *Enoxaparin/Lovenox 30 mg SQ daily (WT < 150 kg, CrCl > 10-29 mL/min) *Enoxaparin/Lovenox 30 mg SQ BID (WT < 150 kg, CrCl > 30 mL/min) AND *Sequential Compression Device (SCD) Assessment and Plan - Plan This is a 52 yo with hx of chronic pain, seizure disorder on Dilantin, PE/DVT on Xarelto, COPD, diabetes mellitus with neuropathy, hypertension and coronary artery disease status post PCI. She presents to the emergency room because she was diagnosed with bilateral lower extremity DVT 2 days ago at [facility]. She has been complaining of excruciating shocking pain bilateral lower extremities all the way to her groin and numbing discomfort of bilateral feet worse with ambulation. She has chronic neck and lower back pain was on morphine and oxycodone but ran out for 3 weeks now. Denies numbness or incontinence. Doppler sonogram in the ED was negative for DVT. Hypertensive urgency. Start Nitropaste and continue amlodipine and Lopressor. Continue to monitor with as needed IV Vasotec, hydralazine and clonidine. Cardene drip as needed may need to be transferred to ICU. Obtain drug screen. Blurred vision will obtain ophthalmology consultation Troponin elevation. History of coronary artery disease status post PCI. Trend cardiac enzymes and monitor EKG. Continue aspirin, beta-leidy and Nitropaste. Consider cardiology consult Bilateral lower extremity pain possible PAD versus diabetic neuropathy. Continue aspirin and Lyrica. Obtain EDYTA. COPD exacerbation. CTA negative for PE. Start nebulization and short course of steroids Diabetes mellitus. Continue home medications with sliding scale coverage DVT and PE continue Xarelto Discharge Planning: HHC vs rehab in 2-3 days
[2018-05-30] MEDS: Insulin NovoLOG Aspart Correctional Sugar Inj SQ SCH ×2 (16:57→21:34)
[2018-05-30 17:21] LABS: Amphetamine Screen,Urine Neg (Neg); Barbiturate Screen,Urine Neg (Neg); Cannabinoid Screen,Urine Neg (Neg); Cocaine Screen,Urine Neg (Neg)
[2018-05-30 17:28] LABS: Opiate Screen,Urine Pos (Neg)
[2018-05-30] MEDS ORDERED: Phenytoin Sodium 100 MG Capsule PO ONE (17:30)
[2018-05-30] MEDS: oxyCODONE/Acetaminophen 10/325 Tablet PO PRN (17:59)
[2018-05-30] MEDS ORDERED: ZYLET LEFT EYE SCH (18:00)
[2018-05-30] MEDS: niCARdipine Inj 25 MG in Sodium Chlor 0.9% Inj 240 ML IV.CONT PRN ×2 (18:27→22:59)
[2018-05-30] MEDS: predniSONE 20 MG Tablet PO SCH (18:42)
[2018-05-30 21:06] LABS: Phenytoin (Dilantin) 0.7 mcg/mL (10.0-20.0); Troponin I 0.08 ng/mL (0.02-0.05)
[2018-05-30] MEDS: Pregabalin 75 MG Capsule PO SCH (21:16)
[2018-05-30] MEDS: Montelukast 10 MG Tablet PO SCH (21:16)
[2018-05-30] MEDS: Senna/Docusate Sodium 8.6/50 MG Tablet PO SCH (21:16)
[2018-05-30] MEDS: Metoprolol Tartrate 100 MG Tablet PO SCH (21:17)
[2018-05-30] MEDS: Rivaroxaban 20 MG Tablet PO SCH (21:17)
[2018-05-30] MEDS: Insulin Detemir Inj 1,000 UNIT/10 ML Vial SQ SCH (21:34)
[2018-05-30] MEDS: Phenytoin Sodium 100 MG Capsule PO SCH (21:37)
[2018-05-31] MEDS: oxyCODONE/Acetaminophen 10/325 Tablet PO PRN ×3 (00:24→17:27)
[2018-05-31] MEDS: Budesonide-Formoterol 160/4.5 MCG 6 GM Inhaler INH SCH ×3 (00:47→20:55)
[2018-05-31] MEDS ORDERED: Chlorhexidine Gluconate 2% 1 Pack (2 Cloths) TOPICAL PRN (04:00)
[2018-05-31] MEDS: Chlorhexidine Gluconate 2% 1 Pack (2 Cloths) TOPICAL SCH ×2 (04:10→20:56)
[2018-05-31] MEDS: niCARdipine Inj 25 MG in Sodium Chlor 0.9% Inj 240 ML IV.CONT PRN (06:11)
[2018-05-31] MEDS: Insulin NovoLOG Aspart Correctional Sugar Inj SQ SCH ×4 (08:02→20:52)
[2018-05-31] MEDS: amLODIPine 10 MG Tablet PO SCH (08:04)
[2018-05-31] MEDS: Phenytoin Sodium 100 MG Capsule PO SCH ×2 (08:04→20:54)
[2018-05-31] MEDS: predniSONE 20 MG Tablet PO SCH (08:04)
[2018-05-31] MEDS: Insulin Detemir Inj 1,000 UNIT/10 ML Vial SQ SCH (08:04)
[2018-05-31] MEDS: Pregabalin 75 MG Capsule PO SCH ×2 (08:04→21:00)
[2018-05-31] MEDS: Metoprolol Tartrate 100 MG Tablet PO SCH ×2 (08:04→20:54)
[2018-05-31] MEDS: Senna/Docusate Sodium 8.6/50 MG Tablet PO SCH ×2 (08:05→20:53)
--- NOTE | 2018-05-31 08:54 | P.PN ---
Subjective Interval history: F/U HTN, COPD and CAD. Still complaining of bilateral lower extremity burning pain. Improved blurred vision and shortness of breath. Denies chest pain. Discussed with nursing, Cardene drip discontinued this morning. Physical Exam Vital signs: Vital Signs 05/30/18 13:03 05/30/18 14:18 05/30/18 14:43 Temperature 98.7 F Pulse Rate 97 H Respiratory Rate 18 18 18 Blood Pressure 226/107 H 212/38 H Pulse Oximetry 100 05/30/18 15:22 05/30/18 15:38 05/30/18 16:06 Temperature Pulse Rate 82 77 84 Respiratory Rate 18 18 Blood Pressure 220/103 H 201/93 H 204/81 H Pulse Oximetry 97 05/30/18 16:47 05/30/18 17:35 05/30/18 17:45 Temperature Pulse Rate 81 Respiratory Rate 18 18 Blood Pressure 168/85 H 205/88 H 193/91 H Pulse Oximetry 05/30/18 18:15 05/30/18 18:34 05/30/18 18:43 Temperature Pulse Rate 84 Respiratory Rate 18 Blood Pressure 222/101 H 181/88 H 181/88 H Pulse Oximetry 05/30/18 18:51 05/30/18 20:01 05/30/18 20:02 Temperature Pulse Rate 78 80 Respiratory Rate 18 16 Blood Pressure 188/80 H Pulse Oximetry 97 05/30/18 20:13 05/30/18 22:00 05/31/18 00:00 Temperature 98.7 F 98.7 F Pulse Rate 81 80 75 Respiratory Rate 18 16 18 Blood Pressure 148/69 H 166/77 H 177/83 H Pulse Oximetry 96 100 05/31/18 01:36 05/31/18 03:35 05/31/18 04:00 Temperature 98.7 F Pulse Rate 72 73 Respiratory Rate 18 20 Blood Pressure 158/68 H 157/72 H Pulse Oximetry Intake & Output 05/30/18 05/31/18 05/31/18 18:59 06:59 18:59 Intake Total 500 / 500 Balance 500 / 500 Weight 72.575 kg 80.6 kg Intake: IV 500 / 500 Cardene Inj 25 MG In NS Inj 240 500 / 500 ML @ 5 MG/HR 50 mls/hr IV.CONT TITRATE PRN Rx#:[id number] Other: # Voids 3 Weight On Admission 80.6 kg Narrative: GENERAL: Well-developed and well-nourished in no distress SKIN: Warm and dry. CARDIOVASCULAR: Regular rate and rhythm. RESPIRATORY: No accessory muscle use. Clear to auscultation. Breath sounds equal bilaterally. GASTROINTESTINAL: Abdomen soft, non-tender, nondistended. MUSCULOSKELETAL: Extremities without clubbing, cyanosis, or edema. No obvious deformities. Neurovascularly intact NEUROLOGICAL: Awake and alert. No obvious cranial nerve deficits. Motor grossly within normal limits. Five out of 5 muscle strength in the arms and legs. Normal speech. Results - Labs CBC & Chem 7: 05/30/18 13:49 05/30/18 13:49 Laboratory Results - last 24 hr 05/30/18 05/30/18 05/30/18 13:49 13:49 13:49 WBC 7.2 RBC 4.61 Hgb 12.4 Hct 38.2 MCV 82.8 MCH 26.8 L MCHC 32.4 RDW 14.4 Plt Count 322 MPV 7.9 Neut % (Auto) 45.8 Lymph % (Auto) 45.2 H [place] % (Auto) 5.9 Eos % (Auto) 2.3 Baso % (Auto) 0.8 Neut # (Auto) 3.3 Lymph # (Auto) 3.3 [place] # (Auto) 0.4 Eos # (Auto) 0.2 Baso # (Auto) 0.1 WBC Differential . Differential Comment Auto diff final PT 10.0 INR 1.0 APTT 27.8 Sodium 137 Potassium 3.6 Chloride 102 Carbon Dioxide 28.5 Anion Gap 7 BUN 13 Creatinine 0.76 Estimated GFR Greater than 89 POC Glucose Random Glucose 272 H Calcium 9.2 Total Bilirubin 0.2 AST 15 ALT 17 Alkaline Phosphatase 157 H Total Creatine Kinase Troponin I Total Protein 8.0 Albumin 3.6 Nasal Screen MRSA (PCR) Urine Opiates Screen Ur Barbiturates Screen Phenytoin Ur Amphetamines Screen U Benzodiazepines Scrn Urine Cocaine Screen U Cannabinoids Screen 05/30/18 05/30/18 05/30/18 13:49 13:49 16:37 WBC RBC Hgb Hct MCV MCH MCHC RDW Plt Count MPV Neut % (Auto) Lymph % (Auto) [place] % (Auto) Eos % (Auto) Baso % (Auto) Neut # (Auto) Lymph # (Auto) [place] # (Auto) Eos # (Auto) Baso # (Auto) WBC Differential Differential Comment PT INR APTT Sodium Potassium Chloride Carbon Dioxide Anion Gap BUN Creatinine Estimated GFR POC Glucose 304 H Random Glucose Calcium Total Bilirubin AST ALT Alkaline Phosphatase Total Creatine Kinase Troponin I 0.08 H Total Protein Albumin Nasal Screen MRSA (PCR) Urine Opiates Screen Ur Barbiturates Screen Phenytoin 0.8 L Ur Amphetamines Screen U Benzodiazepines Scrn Urine Cocaine Screen U Cannabinoids Screen 05/30/18 05/30/18 05/30/18 17:06 20:30 21:00 WBC RBC Hgb Hct MCV MCH MCHC RDW Plt Count MPV Neut % (Auto) Lymph % (Auto) [place] % (Auto) Eos % (Auto) Baso % (Auto) Neut # (Auto) Lymph # (Auto) [place] # (Auto) Eos # (Auto) Baso # (Auto) WBC Differential Differential Comment PT INR APTT Sodium Potassium Chloride Carbon Dioxide Anion Gap BUN Creatinine Estimated GFR POC Glucose Random Glucose Calcium Total Bilirubin AST ALT Alkaline Phosphatase Total Creatine Kinase 68 Troponin I 0.08 H Total Protein Albumin Nasal Screen MRSA (PCR) Not detected Urine Opiates Screen Pos H Ur Barbiturates Screen Neg Phenytoin 0.7 L Ur Amphetamines Screen Neg U Benzodiazepines Scrn Neg Urine Cocaine Screen Neg U Cannabinoids Screen Neg 05/30/18 05/31/18 21:24 07:19 WBC RBC Hgb Hct MCV MCH MCHC RDW Plt Count MPV Neut % (Auto) Lymph % (Auto) [place] % (Auto) Eos % (Auto) Baso % (Auto) Neut # (Auto) Lymph # (Auto) [place] # (Auto) Eos # (Auto) Baso # (Auto) WBC Differential Differential Comment PT INR APTT Sodium Potassium Chloride Carbon Dioxide Anion Gap BUN Creatinine Estimated GFR POC Glucose 483 H* 307 H Random Glucose Calcium Total Bilirubin AST ALT Alkaline Phosphatase Total Creatine Kinase Troponin I Total Protein Albumin Nasal Screen MRSA (PCR) Urine Opiates Screen Ur Barbiturates Screen Phenytoin Ur Amphetamines Screen U Benzodiazepines Scrn Urine Cocaine Screen U Cannabinoids Screen - Imaging Impressions Chest CTA 05/30/18 13:29 CONCLUSION: 1. No CT evidence for pulmonary artery embolism. 2. Mild paraseptal emphysema at the lung apices. 3. Coronary artery stenting. Venous Doppler Study 05/30/18 13:29 CONCLUSION: 1. No DVT identified. - Procedures none Assessment and Plan - Plan This is a 52 yo with hx of chronic pain, seizure disorder on Dilantin, PE/DVT on Xarelto, COPD, diabetes mellitus with neuropathy, hypertension and coronary artery disease status post PCI. She presents to the emergency room because she was diagnosed with bilateral lower extremity DVT 2 days ago at [facility]. She has been complaining of excruciating shocking pain bilateral lower extremities all the way to her groin and numbing discomfort of bilateral feet worse with ambulation. She has chronic neck and lower back pain was on morphine and oxycodone but ran out for 3 weeks now. Denies numbness or incontinence. Doppler sonogram in the ED was negative for DVT. Hypertensive urgency. Improved continue Nitropaste, amlodipine and Lopressor. Increase losartan to 100 mg daily. Discontinue Cardene drip. Continue to monitor with as needed IV Vasotec and clonidine. Cardene drip as needed may need to be transferred to ICU. Drug screen positive for opiates Blurred vision. Improving follow-up ophthalmology consultation Troponin elevation. History of coronary artery disease status post PCI of the branch vessel in January 2018. Recommended intervention of the diagonal branch if persistent symptoms. Currently pain-free. Continue aspirin, beta-leidy and Nitropaste. Consult cardiology Bilateral lower extremity pain possible PAD versus diabetic neuropathy. Continue aspirin and Lyrica. Follow-up EDYTA. COPD exacerbation. CTA negative for PE. Improving continue nebulization and short course of steroids Diabetes mellitus. Uncontrolled secondary to steroids. Continue home medications will increase Levemir to 65 units twice a day for better control with sliding scale coverage DVT and PE continue Xarelto Discharge Planning: HHC vs rehab in 2-3 days. May transfer to floor if not needing Cardene drip anymore
[2018-05-31] MEDS ORDERED: Insulin Detemir Inj 1,000 UNIT/10 ML Vial SQ ONE (09:15)
[2018-05-31 10:32] LABS: Anion Gap 8 meq/L (5-15); Blood Urea Nitrogen 21 mg/dL (7-18); Calcium 8.9 mg/dL (8.5-10.1); Carbon Dioxide 26.8 meq/L (21.0-32.0); Chloride 104 meq/L (98-107); Glomerular Filtration Rate Greater Than 89 mL/min (>89); Glucose,Random 287 mg/dL (74-106); Magnesium 1.9 mg/dL (1.5-2.5); Potassium 3.7 meq/L (3.5-5.1); Sodium 139 meq/L (136-145)
[2018-05-31 10:34] LABS: Phenytoin (Dilantin) 4.8 mcg/mL (10.0-20.0)
[2018-05-31 10:36] LABS: Troponin I 0.05 ng/mL (0.02-0.05)
--- NOTE | 2018-05-31 12:05 | ECHRPT ---
EXAM DATE: 05/31/2018 11:50 AM EDT AGE/SEX: 52 years / Female INDICATIONS: ACS/SOB CLINICAL DATA: This is the patient's initial encounter. Patient reports that signs and symptoms have been present for 2 weeks and indicates a pain score of 8/10. MEDICAL/SURGICAL HISTORY: . CHRONIC PAIN, SEIZURE DISORDER, HX OF DVT, COPD, DIABETES, HYPERTEN [place], CAD, CHRONIC NECK AND BACK PAIN . CARDIAC CATH COMPARISON: No prior exams available for comparison. TECHNIQUE: Four-cuff ankle and brachial pressures were obtained. Pulse cuff waveform tracings of the ankles were recorded, and ankle-brachial indices were calculated. PRESSURES (mmHg): Brachial (arm) : RIGHT: 171, LEFT: IV SITE Ankle : RIGHT: 105, LEFT: 122 Toe : RIGHT: 98, LEFT: 105 EDYTA : RIGHT: 0.61, LEFT: 0.71 FINDINGS: Pulsed-Cuff Waveform: There are good upstroke and a dicrotic downstroke of the tracings. Other: None. CONCLUSION: 1. The values are consistent with mild ischemia on the left and mild to moderate on the right. Electronically signed by: Annel Hurd MD 05/31/2018 12:04 PM EDT
--- NOTE | 2018-05-31 13:57 | ECG ---
Date Performed: 05/30/2018 Time Performed: 22:00:19 PTAGE: 52 years EKG: Sinus rhythm POSSIBLE LEFT ATRIAL ENLARGEMENT LEFT VENTRICULAR HYPERTROPHY ST-T CHANGES vreom LVH vs ischemia vs other ABNORMAL ECG Since the PREVIOUS TRACING , no significant change noted PREVIOUS TRACIN05/30/2018 14.38 DOCTOR: Marisol Hughes Interpretating Date/Time 05/31/2018 13:55:54
--- NOTE | 2018-05-31 14:21 | ECG ---
Date Performed: 05/30/2018 Time Performed: 14:38:30 PTAGE: 52 years EKG: Sinus rhythm LEFT ATRIAL ENLARGEMENT INFERIOR MYOCARDIAL INFARCTION ABNORMAL ECG Compared to PREVIOUS TRACING , now meets criteria for old inferior [place] PREVIOUS TRACIN01/26/2018 04 .47 DOCTOR: Marisol Hughes Interpretating Date/Time 05/31/2018 14:20:57
--- NOTE | 2018-05-31 14:32 | MB ---
cc: Sancehz Martin MD DATE: 05/31/2018 HISTORY OF PRESENT ILLNESS: She wants is a very pleasant 32-year-old lady with history of coronary artery disease, status post PCI, history of recently diagnosed pulmonary embolism on Xarelto. She was diagnosed in 02/2018. She presents with mild chest pain, mild shortness of breath. She is currently chest pain free. She otherwise denies any fever, chills, cough. She has been . PERTINENT MEDICAL HISTORY: As per history of present illness. She has a history of COPD, diabetes, DVT, hypertension. ALLERGIES: CIPROFLOXACIN, ERYTHROMYCIN, TRAMADOL, VANCOMYCIN. SOCIAL HISTORY: She smokes cigarettes every day, 1-1/2 packs a day. Denies alcohol use. MEDICATIONS: In the hospital, albuterol, amlodipine 10 mg daily, Abilify 15 mg daily, aspirin 81 mg every other day, BuSpar 5 mg q.i.d., insulin, Vistaril 50 mg daily, losartan 100 mg daily, metoprolol 100 mg b.i.d., Singulair 10 mg q.p.m., IV nicardipine, 1 inch nitro paste, Pravachol 20 mg daily, prednisone 20 mg daily, Lyrica 150 mg b.i.d., Xarelto 20 mg q.p.m., Ashley-Colace. PHYSICAL EXAMINATION: VITAL SIGNS: Currently, blood pressure 181/86, pulse 65, respiratory rate 18, temperature 98.4. Note, initial blood pressure was 226/107. GENERAL: She is alert and oriented x3, in no acute distress. NECK: Supple. No JVD. No bruit. CARDIOVASCULAR: S1, S2. No murmurs, rubs, gallops heard. LUNGS: Clear to auscultation bilaterally. ABDOMEN: Soft, nontender, nondistended with positive bowel sounds. EXTREMITIES: No extremity edema. LABORATORY DATA: CTA of the chest: No CT evidence of pulmonary artery embolism, mild paraseptal emphysema at the lung apices, coronary artery stenting. Extremity arterial study: The values are consistent with mild ischemia on the left and mild to moderate on the "right." Venous Doppler study: No DVT identified. EKG: Normal sinus rhythm at 81 beats per minute, repolarization abnormality, nonspecific ST-T wave changes, borderline LVH, inferior Q-waves. Repeat EKG: Normal sinus rhythm around 80 beats per minute, repolarization abnormality, nonspecific ST-T wave changes. Q-wave in lead III. LABS: White count 7.2, hemoglobin 12.4, hematocrit 38.2, platelet count 322. INR 1.0. Sodium 139, potassium 3.7, chloride 104, bicarbonate 26.8, BUN 21, creatinine 0.68, magnesium 1.9, calcium 8.9. Glucose 202. Troponins are the following 0.08, 0.08, 0.08, 0.08, 0.05. FINAL DIAGNOSES: 1. [id number] myocardial infarction. 2. Hypertensive urgency. 3. Coronary artery disease. 4. Pulmonary embolus. 5. Deep venous thrombosis. 6. Diabetes mellitus. 7. Tobacco abuse. 8. Chronic obstructive pulmonary disease. DISCUSSION: At this point in time, it appears that the elevated troponin is most likely due to increased myocardial demand from severe hypertension. The patient is currently chest pain free. She is on Xarelto for history of PE, DVT. Otherwise, her medical management appears to be optimal for her history. I will continue to follow her trends in blood pressure and symptoms. MD ORAL Luo/shira/gilson , 12:59 PM , 01:09 PM
[2018-05-31] MEDS: Montelukast 10 MG Tablet PO SCH (17:27)
[2018-05-31] MEDS: Rivaroxaban 20 MG Tablet PO SCH (17:27)
[2018-05-31] MEDS: Morphine Inj 4 MG/ML Vial IV.PUSH PRN (18:06)
[2018-05-31] MEDS ORDERED: Insulin Detemir Inj 1,000 UNIT/10 ML Vial SQ SCH (21:00)
[2018-06-01] MEDS ORDERED: hydrALAZINE 50 MG Tablet PO ONE (01:26)
[2018-06-01] MEDS ORDERED: Metoprolol Inj 5 MG/5 ML Vial IV.PUSH ONE (01:26)
[2018-06-01] MEDS: Morphine Inj 4 MG/ML Vial IV.PUSH PRN ×3 (02:38→21:14)
[2018-06-01] MEDS: oxyCODONE/Acetaminophen 10/325 Tablet PO PRN ×3 (04:05→22:53)
[2018-06-01] MEDS: Chlorhexidine Gluconate 2% 1 Pack (2 Cloths) TOPICAL SCH (04:06)
[2018-06-01 06:59] LABS: Anion Gap 9 meq/L (5-15); Blood Urea Nitrogen 18 mg/dL (7-18); Carbon Dioxide 25.6 meq/L (21.0-32.0); Chloride 108 meq/L (98-107); Glomerular Filtration Rate Greater Than 89 mL/min (>89); Glucose,Random 56 mg/dL (74-106); Phenytoin (Dilantin) 5.8 mcg/mL (10.0-20.0); Potassium 3.4 meq/L (3.5-5.1); Sodium 143 meq/L (136-145)
[2018-06-01] MEDS: Metoprolol Tartrate 100 MG Tablet PO SCH ×2 (08:03→21:11)
[2018-06-01] MEDS: predniSONE 20 MG Tablet PO SCH (08:03)
[2018-06-01] MEDS: Phenytoin Sodium 100 MG Capsule PO SCH ×2 (08:03→21:10)
[2018-06-01] MEDS: Pregabalin 75 MG Capsule PO SCH ×2 (08:03→21:10)
[2018-06-01] MEDS: Senna/Docusate Sodium 8.6/50 MG Tablet PO SCH ×2 (08:04→21:11)
[2018-06-01] MEDS: Insulin NovoLOG Aspart Correctional Sugar Inj SQ SCH ×4 (08:04→21:11)
[2018-06-01] MEDS: Budesonide-Formoterol 160/4.5 MCG 6 GM Inhaler INH SCH ×2 (08:04→21:10)
[2018-06-01] MEDS: amLODIPine 10 MG Tablet PO SCH (08:04)
[2018-06-01] MEDS ORDERED: Phenytoin Sodium 100 MG Capsule PO ONE (09:36)
[2018-06-01] MEDS ORDERED: Potassium Chloride 10 MEQ ER Capsule PO ONE (09:37)
[2018-06-01] MEDS ORDERED: Isosorbide Mononitrate 30 MG ER 24HR Tablet (Imdur) PO SCH (09:45)
[2018-06-01] MEDS ORDERED: Insulin Detemir Inj 1,000 UNIT/10 ML Vial SQ SCH ×2 (10:00→21:00)
--- NOTE | 2018-06-01 10:03 | P.PN ---
Subjective Interval history: . Patient still complaining of bilateral lower extremity discomfort. Abnormal EDYTA. Physical Exam Vital signs: Vital Signs 05/31/18 10:00 05/31/18 10:01 05/31/18 10:04 Temperature Pulse Rate 71 71 72 Respiratory Rate 20 15 21 Blood Pressure 191/88 H 160/80 H Pulse Oximetry 98 100 100 05/31/18 10:30 05/31/18 11:00 05/31/18 11:30 Temperature Pulse Rate 67 70 68 Respiratory Rate 12 16 14 Blood Pressure 170/84 H 174/84 H 178/85 H Pulse Oximetry 100 100 98 05/31/18 12:00 05/31/18 12:30 05/31/18 13:00 Temperature 98.4 F Pulse Rate 65 68 74 Respiratory Rate 18 12 20 Blood Pressure 181/86 H 184/86 H 167/79 H Pulse Oximetry 98 98 99 05/31/18 13:30 05/31/18 14:00 05/31/18 14:30 Temperature Pulse Rate 73 71 69 Respiratory Rate 16 18 11 L Blood Pressure 170/81 H 162/77 H 169/79 H Pulse Oximetry 99 98 98 05/31/18 15:00 05/31/18 15:30 05/31/18 15:49 Temperature Pulse Rate 72 75 76 Respiratory Rate 11 L 14 18 Blood Pressure 170/85 H 168/80 H Pulse Oximetry 99 100 05/31/18 16:00 05/31/18 18:05 05/31/18 19:00 Temperature 98.5 F Pulse Rate 76 Respiratory Rate 18 14 Blood Pressure 177/84 H Pulse Oximetry 97 99 05/31/18 20:00 05/31/18 21:38 05/31/18 22:00 Temperature 98.5 F Pulse Rate 74 73 77 Respiratory Rate 13 16 Blood Pressure 167/78 H Pulse Oximetry 99 96 05/31/18 23:00 05/31/18 23:30 06/01/18 00:00 Temperature 98.8 F Pulse Rate 80 81 76 Respiratory Rate 14 18 15 Blood Pressure 182/84 H 187/86 H 175/78 H Pulse Oximetry 98 98 96 06/01/18 00:30 06/01/18 01:00 06/01/18 01:12 Temperature Pulse Rate 77 74 72 Respiratory Rate 18 14 14 Blood Pressure 178/83 H 190/90 H 192/93 H Pulse Oximetry 100 99 99 06/01/18 01:30 06/01/18 01:45 06/01/18 02:00 Temperature Pulse Rate 75 72 73 Respiratory Rate 12 16 16 Blood Pressure 185/87 H 183/89 H 191/92 H Pulse Oximetry 100 99 100 06/01/18 02:06 06/01/18 02:30 06/01/18 03:00 Temperature Pulse Rate 74 72 72 Respiratory Rate 12 11 L 14 Blood Pressure 182/88 H 193/92 H 191/88 H Pulse Oximetry 100 99 97 06/01/18 03:03 06/01/18 03:30 06/01/18 03:53 Temperature Pulse Rate 73 72 77 Respiratory Rate 12 14 16 Blood Pressure 184/81 H 173/80 H Pulse Oximetry 99 99 06/01/18 04:00 06/01/18 04:04 06/01/18 04:30 Temperature 98.2 F Pulse Rate 74 74 71 Respiratory Rate 24 15 14 Blood Pressure 192/87 H 172/79 H 158/72 H Pulse Oximetry 100 100 98 06/01/18 05:00 06/01/18 05:30 06/01/18 06:00 Temperature Pulse Rate 71 73 74 Respiratory Rate 15 11 L 17 Blood Pressure 165/86 H 188/86 H 158/75 H Pulse Oximetry 100 100 98 06/01/18 06:30 06/01/18 07:00 06/01/18 07:30 Temperature Pulse Rate 66 71 73 Respiratory Rate 13 17 14 Blood Pressure 150/70 H 157/76 H 184/84 H Pulse Oximetry 95 98 100 06/01/18 07:52 06/01/18 08:00 06/01/18 08:29 Temperature 98.3 F Pulse Rate 76 73 82 Respiratory Rate 18 17 11 L Blood Pressure 161/75 H Pulse Oximetry 99 100 06/01/18 08:30 Temperature Pulse Rate Respiratory Rate Blood Pressure 176/81 H Pulse Oximetry Intake & Output 05/31/18 06/01/18 06/01/18 18:59 06:59 18:59 Intake Total 1250 / 1250 440 / 440 Balance 1250 / 1250 440 / 440 Weight 81.5 kg Intake: Oral 1250 / 1250 440 / 440 Other: # Voids 3 3 Narrative: GENERAL: Well-developed and well-nourished in no distress SKIN: Warm and dry. CARDIOVASCULAR: Regular rate and rhythm. RESPIRATORY: No accessory muscle use. Clear to auscultation. Breath sounds equal bilaterally. GASTROINTESTINAL: Abdomen soft, non-tender, nondistended. MUSCULOSKELETAL: Extremities without clubbing, cyanosis, or edema. No obvious deformities. Neurovascularly intact NEUROLOGICAL: Awake and alert. No obvious cranial nerve deficits. Motor grossly within normal limits. Five out of 5 muscle strength in the arms and legs. Normal speech. Results - Labs CBC & Chem 7: 05/30/18 13:49 06/01/18 04:58 Laboratory Results - last 24 hr 05/31/18 05/31/18 05/31/18 07:55 07:55 11:15 Sodium 139 Potassium 3.7 Chloride 104 Carbon Dioxide 26.8 Anion Gap 8 BUN 21 H Creatinine 0.68 Estimated GFR Greater than 89 POC Glucose 202 H Random Glucose 287 H Calcium 8.9 Magnesium 1.9 Total Creatine Kinase 62 Troponin I 0.05 Phenytoin 4.8 L 05/31/18 05/31/18 06/01/18 17:05 20:23 04:58 Sodium 143 Potassium 3.4 L Chloride 108 H Carbon Dioxide 25.6 Anion Gap 9 BUN 18 Creatinine 0.63 Estimated GFR Greater than 89 POC Glucose 236 H 274 H Random Glucose 56 L D Calcium 9.0 Magnesium 2.0 Total Creatine Kinase Troponin I Phenytoin 5.8 L 06/01/18 07:12 Sodium Potassium Chloride Carbon Dioxide Anion Gap BUN Creatinine Estimated GFR POC Glucose 106 Random Glucose Calcium Magnesium Total Creatine Kinase Troponin I Phenytoin - Imaging Impressions Extremity Arterial Study 05/30/18 00:00 CONCLUSION: 1. The values are consistent with mild ischemia on the left and mild to moderate on the right. - Procedures none Assessment and Plan - Plan This is a 52 yo with hx of chronic pain, seizure disorder on Dilantin, PE/DVT on Xarelto, COPD, diabetes mellitus with neuropathy, hypertension and coronary artery disease status post PCI. She presents to the emergency room because she was diagnosed with bilateral lower extremity DVT 2 days ago at [facility]. She has been complaining of excruciating shocking pain bilateral lower extremities all the way to her groin and numbing discomfort of bilateral feet worse with ambulation. She has chronic neck and lower back pain was on morphine and oxycodone but ran out for 3 weeks now. Denies numbness or incontinence. Doppler sonogram in the ED was negative for DVT. Hypertensive urgency. Improved continue losartan, amlodipine and Lopressor. Switch back to Imdur increased to 60 mg daily. Discontinue Cardene drip. Continue to monitor with as needed IV Vasotec and clonidine. Drug screen positive for opiates Blurred vision. Improving follow-up ophthalmology consultation NSTEMI with history of coronary artery disease status post PCI of the branch vessel in January 2018. Recommended intervention of the diagonal branch if persistent symptoms. Currently pain-free. Continue aspirin, beta-leidy and nitrate. This is demand ischemia from uncontrolled hypertension per cardiology Bilateral lower extremity pain from PAD and diabetic neuropathy. Abnormal EDYTA. Consult vascular surgery consider trental/Pletal continue aspirin, statin and Lyrica. Tobacco cessation COPD exacerbation. CTA negative for PE. Improving continue nebulization and short course steroids Diabetes mellitus. Uncontrolled secondary to steroids. Continue home medications. Patient mildly hypoglycemic this morning after receiving 5 units of coverage last night. Will decrease Levemir to 62 units at bedtime. Hypoglycemia protocol. DVT and PE continue Xarelto Discharge Planning: Stable to floor HHC vs rehab in 2-3 days.
--- NOTE | 2018-06-01 11:54 | P.PNCA ---
Subjective Interval history: assymptomatic Physical Exam Vital signs: Vital Signs 05/31/18 12:00 05/31/18 12:30 05/31/18 13:00 Temperature 98.4 F Pulse Rate 65 68 74 Respiratory Rate 18 12 20 Blood Pressure 181/86 H 184/86 H 167/79 H Pulse Oximetry 98 98 99 05/31/18 13:30 05/31/18 14:00 05/31/18 14:30 Temperature Pulse Rate 73 71 69 Respiratory Rate 16 18 11 L Blood Pressure 170/81 H 162/77 H 169/79 H Pulse Oximetry 99 98 98 05/31/18 15:00 05/31/18 15:30 05/31/18 15:49 Temperature Pulse Rate 72 75 76 Respiratory Rate 11 L 14 18 Blood Pressure 170/85 H 168/80 H Pulse Oximetry 99 100 05/31/18 16:00 05/31/18 18:05 05/31/18 19:00 Temperature 98.5 F Pulse Rate 76 Respiratory Rate 18 14 Blood Pressure 177/84 H Pulse Oximetry 97 99 05/31/18 20:00 05/31/18 21:38 05/31/18 22:00 Temperature 98.5 F Pulse Rate 74 73 77 Respiratory Rate 13 16 Blood Pressure 167/78 H Pulse Oximetry 99 96 05/31/18 23:00 05/31/18 23:30 06/01/18 00:00 Temperature 98.8 F Pulse Rate 80 81 76 Respiratory Rate 14 18 15 Blood Pressure 182/84 H 187/86 H 175/78 H Pulse Oximetry 98 98 96 06/01/18 00:30 06/01/18 01:00 06/01/18 01:12 Temperature Pulse Rate 77 74 72 Respiratory Rate 18 14 14 Blood Pressure 178/83 H 190/90 H 192/93 H Pulse Oximetry 100 99 99 06/01/18 01:30 06/01/18 01:45 06/01/18 02:00 Temperature Pulse Rate 75 72 73 Respiratory Rate 12 16 16 Blood Pressure 185/87 H 183/89 H 191/92 H Pulse Oximetry 100 99 100 06/01/18 02:06 06/01/18 02:30 06/01/18 03:00 Temperature Pulse Rate 74 72 72 Respiratory Rate 12 11 L 14 Blood Pressure 182/88 H 193/92 H 191/88 H Pulse Oximetry 100 99 97 06/01/18 03:03 08/05/18 03:30 06/01/18 03:53 Temperature Pulse Rate 73 72 77 Respiratory Rate 12 14 16 Blood Pressure 184/81 H 173/80 H Pulse Oximetry 99 99 06/01/18 04:00 06/01/18 04:04 06/01/18 04:30 Temperature 98.2 F Pulse Rate 74 74 71 Respiratory Rate 24 15 14 Blood Pressure 192/87 H 172/79 H 158/72 H Pulse Oximetry 100 100 98 06/01/18 05:00 06/01/18 05:30 06/01/18 06:00 Temperature Pulse Rate 71 73 74 Respiratory Rate 15 11 L 17 Blood Pressure 165/86 H 188/86 H 158/75 H Pulse Oximetry 100 100 98 06/01/18 06:30 06/01/18 07:00 06/01/18 07:30 Temperature Pulse Rate 66 71 73 Respiratory Rate 13 17 14 Blood Pressure 150/70 H 157/76 H 184/84 H Pulse Oximetry 95 98 100 06/01/18 07:52 06/01/18 08:00 06/01/18 08:29 Temperature 98.3 F Pulse Rate 76 73 82 Respiratory Rate 18 17 11 L Blood Pressure 161/75 H Pulse Oximetry 99 100 06/01/18 08:30 06/01/18 10:00 Temperature Pulse Rate 76 Respiratory Rate Blood Pressure 176/81 H Pulse Oximetry Intake & Output 05/31/18 06/01/18 06/01/18 18:59 06:59 18:59 Intake Total 1250 / 1250 440 / 440 Balance 1250 / 1250 440 / 440 Weight 81.5 kg Intake: Oral 1250 / 1250 440 / 440 Other: # Voids 3 3 Assessment and Plan - Assessment (1) NSTEMI (non-ST elevated myocardial infarction) Code(s): I21.4 - Non-ST elevation (NSTEMI) myocardial infarction Status: Acute (2) Pulmonary embolism Code(s): I26.99 - Other pulmonary embolism without acute cor pulmonale Status : Acute (3) HTN (hypertension) Code(s): I10 - Essential (primary) hypertension Status: Acute (4) Tobacco abuse Code(s): Z72.0 - Tobacco use Status: Acute - Plan 1.) HTN - trop elevation probably secondary to htn, assymptomatic, patient strongly advised to stop smoking
--- NOTE | 2018-06-01 13:56 | P.PNVS ---
Subjective Subjective/Hospital Course: Patient seen full consult dictated She just had pulmonary angiogram to rule out pulmonary embolism so I do not want to load the patient with another dye bolus this close together but next week we do not do CTA with a runoff. Patient clearly has some drop off as far as the pressures are concerned in both legs and ABIs 0.6 on the right and 0.7 on the left signifying some degree of vascular disease and vascular occlusive changes probably consistent with diabetes and vascular occlusive disease between the groin and the knees, right more than left hand probably some degree of small vessel diabetic type vascular occlusive changes below the level of the knee. We will go ahead with CTA with runoff next week if see if we can fix something. At this point patient does not have acute or limb threatening ischemia. Objective Vital Signs / I&O: Vital Signs 05/31/18 14:00 05/31/18 14:30 05/31/18 15:00 Temperature Pulse Rate 71 69 72 Respiratory Rate 18 11 L 11 L Blood Pressure 162/77 H 169/79 H 170/85 H Pulse Oximetry 98 98 99 05/31/18 15:30 05/31/18 15:49 05/31/18 16:00 Temperature 98.5 F Pulse Rate 75 76 76 Respiratory Rate 14 18 18 Blood Pressure 168/80 H 177/84 H Pulse Oximetry 100 97 05/31/18 18:05 05/31/18 19:00 05/31/18 20:00 Temperature 98.5 F Pulse Rate 74 Respiratory Rate 14 13 Blood Pressure 167/78 H Pulse Oximetry 99 99 05/31/18 21:38 05/31/18 22:00 05/31/18 23:00 Temperature Pulse Rate 73 77 80 Respiratory Rate 16 14 Blood Pressure 182/84 H Pulse Oximetry 96 98 05/31/18 23:30 06/01/18 00:00 06/01/18 00:30 Temperature 98.8 F Pulse Rate 81 76 77 Respiratory Rate 18 15 18 Blood Pressure 187/86 H 175/78 H 178/83 H Pulse Oximetry 98 96 100 06/01/18 01:00 06/01/18 01:12 06/01/18 01:30 Temperature Pulse Rate 74 72 75 Respiratory Rate 14 14 12 Blood Pressure 190/90 H 192/93 H 185/87 H Pulse Oximetry 99 99 100 06/01/18 01:45 06/01/18 02:00 06/01/18 02:06 Temperature Pulse Rate 72 73 74 Respiratory Rate 16 16 12 Blood Pressure 183/89 H 191/92 H 182/88 H Pulse Oximetry 99 100 100 06/01/18 02:30 06/01/18 03:00 06/01/18 03:03 Temperature Pulse Rate 72 72 73 Respiratory Rate 11 L 14 12 Blood Pressure 193/92 H 191/88 H 184/81 H Pulse Oximetry 99 97 99 06/01/18 03:30 06/01/18 03:53 06/01/18 04:00 Temperature 98.2 F Pulse Rate 72 77 74 Respiratory Rate 14 16 24 Blood Pressure 173/80 H 192/87 H Pulse Oximetry 99 100 06/01/18 04:04 06/01/18 04:30 06/01/18 05:00 Temperature Pulse Rate 74 71 71 Respiratory Rate 15 14 15 Blood Pressure 172/79 H 158/72 H 165/86 H Pulse Oximetry 100 98 100 06/01/18 05:30 06/01/18 06:00 06/01/18 06:30 Temperature Pulse Rate 73 74 66 Respiratory Rate 11 L 17 13 Blood Pressure 188/86 H 158/75 H 150/70 H Pulse Oximetry 100 98 95 06/01/18 07:00 06/01/18 07:30 06/01/18 07:52 Temperature Pulse Rate 71 73 76 Respiratory Rate 17 14 18 Blood Pressure 157/76 H 184/84 H Pulse Oximetry 98 100 06/01/18 08:00 06/01/18 08:29 06/01/18 08:30 Temperature 98.3 F Pulse Rate 73 82 79 Respiratory Rate 17 11 L 12 Blood Pressure 161/75 H 176/81 H Pulse Oximetry 99 100 99 06/01/18 09:00 06/01/18 09:30 06/01/18 10:00 Temperature Pulse Rate 80 73 76 Respiratory Rate 19 18 19 Blood Pressure 173/82 H 156/73 H 168/80 H Pulse Oximetry 99 99 99 06/01/18 11:00 06/01/18 12:00 06/01/18 13:24 Temperature 98.0 F Pulse Rate 71 74 79 Respiratory Rate 11 L 13 18 Blood Pressure 136/63 136/63 Pulse Oximetry 98 99 Intake & Output 05/31/18 06/01/18 06/01/18 18:59 06:59 18:59 Intake Total 1250 / 1250 440 / 440 Balance 1250 / 1250 440 / 440 Weight 81.5 kg Intake: Oral 1250 / 1250 440 / 440 Other: # Voids 3 3 Laboratory Results - last 24 hr 05/31/18 05/31/18 06/01/18 17:05 20:23 04:58 Sodium 143 Potassium 3.4 L Chloride 108 H Carbon Dioxide 25.6 Anion Gap 9 BUN 18 Creatinine 0.63 Estimated GFR Greater than 89 POC Glucose 236 H 274 H Random Glucose 56 L D Calcium 9.0 Magnesium 2.0 Phenytoin 5.8 L 06/01/18 06/01/18 07:12 11:14 Sodium Potassium Chloride Carbon Dioxide Anion Gap BUN Creatinine Estimated GFR POC Glucose 106 178 H Random Glucose Calcium Magnesium Phenytoin Impressions Extremity Arterial Study 05/30/18 00:00 CONCLUSION: 1. The values are consistent with mild ischemia on the left and mild to moderate on the right. Chest CTA 05/30/18 13:29 CONCLUSION: 1. No CT evidence for pulmonary artery embolism. 2. Mild paraseptal emphysema at the lung apices. 3. Coronary artery stenting. Venous Doppler Study 05/30/18 13:29 CONCLUSION: 1. No DVT identified.
--- NOTE | 2018-06-01 14:35 | MB ---
cc: Bee Kenney MD DATE: 06/01/2018 REASON FOR CONSULTATION: Peripheral vascular disease. HISTORY OF PRESENT ILLNESS: This is a 52-year-old female with quite complex medical history, presents to the hospital with pain in both legs. The patient apparently was diagnosed with a DVT at [facility] several days ago and now gets admitted to us. The question arises if the patient has any arterial disease that can contribute to her pain. PAST MEDICAL HISTORY: Complex. The patient has seizures, on Dilantin. History of deep venous thrombosis and pulmonary embolism, on Xarelto. Severe COPD, diabetes mellitus, poorly controlled with neuropathy, hypertension, coronary artery disease, status post stenting. SOCIAL HISTORY: The patient smokes about 1-1/2 to 2 packs a day for most of her adult life and patient does not drink. PHYSICAL EXAMINATION: GENERAL: Reveals a 52-year-old female. HEENT: Normocephalic. No trauma to the head. Pupils equal, reactive. Extraocular muscles intact. NECK: Bilateral carotid pulses and bilateral faint carotid bruits. CHEST: Bilateral breath sounds, decreased over both lung nunes consistent with some degree of pulmonary ataxia, some barrel chest is already present and loss of chest wall musculature noted. HEART: Regular rate and rhythm. ABDOMEN: Soft. No rebound or guarding. No masses. EXTREMITIES: The patient has palpable femoral pulses, dopplerable popliteal pulses bilateral much weaker right and left and dopplerable fairly strong bilateral posterior tibial and dorsalis pedis. Actually, I cannot feel a dorsalis pedis and posterior tibial pulses in the right foot; however, feet are warm and clearly perfused. No ulcer or gangrene is noted in either foot. NEUROLOGIC: Grossly patient is intact with decreased sensation in both upper and lower extremities, consistent with peripheral neuropathy in legs more than arms. RECOMMENDATIONS: I reviewed laboratory and diagnostic procedures. The patient clearly does not have a PE. Any patient with D-dimer less than 500 can essentially be ruled out for a pulmonary embolism, even prior to any other studies. It is very uncommon to have D-dimer under 500 and have pulmonary embolism. Therefore, I do not send patients with D-dimer less than that for further studies. As far as the peripheral vascular disease, I looked at the arterial study and the patient does have some drop in the gradient on both sides, more so on the right, so ankle-brachial index on the right is 0.6 and 0.7 on the left. Patient most likely has some degree of vascular occlusive disease between the groin and the knee on the right and possibly to a lesser degree left and then probably some degree of diabetes type of pattern vascular occlusive changes and small vessel disease bilateral. In addition, this patient has very unusual appearing skin lesions with some excoriation over both shoulders and I would certainly make sure that the patient does not have one of the reticuloendothelial tissue and immunoreactive diseases like lupus, scleroderma or such. Other than that, when the patient gets a little better, we will do a CTA with runoff and see if there is anything we can fix. I thank you very much for the referral. MD NITA Mcnair/CHRISTINE , 01:54 PM , 02:05 PM DONALD
[2018-06-01] MEDS: Montelukast 10 MG Tablet PO SCH (17:17)
[2018-06-01] MEDS: Rivaroxaban 20 MG Tablet PO SCH (17:17)
[2018-06-02] MEDS: Chlorhexidine Gluconate 2% 1 Pack (2 Cloths) TOPICAL SCH (03:15)
[2018-06-02] MEDS: oxyCODONE/Acetaminophen 10/325 Tablet PO PRN ×2 (05:28→17:38)
[2018-06-02 07:11] LABS: Anion Gap 6 meq/L (5-15); Blood Urea Nitrogen 16 mg/dL (7-18); Calcium 8.8 mg/dL (8.5-10.1); Carbon Dioxide 30.3 meq/L (21.0-32.0); Chloride 106 meq/L (98-107); Glomerular Filtration Rate Greater Than 89 mL/min (>89); Glucose,Random 103 mg/dL (74-106); Phenytoin (Dilantin) 11.7 mcg/mL (10.0-20.0); Potassium 3.4 meq/L (3.5-5.1); Sodium 142 meq/L (136-145)
[2018-06-02] MEDS: Insulin NovoLOG Aspart Correctional Sugar Inj SQ SCH ×4 (08:00→21:43)
[2018-06-02] MEDS ORDERED: Insulin Detemir Inj 1,000 UNIT/10 ML Vial SQ SCH (09:23)
[2018-06-02] MEDS ORDERED: Potassium Chloride 10 MEQ ER Capsule PO ONE (09:51)
[2018-06-02] MEDS: Pregabalin 75 MG Capsule PO SCH ×2 (10:06→21:36)
[2018-06-02] MEDS: amLODIPine 10 MG Tablet PO SCH (10:06)
[2018-06-02] MEDS: Phenytoin Sodium 100 MG Capsule PO SCH ×2 (10:07→21:37)
[2018-06-02] MEDS: Metoprolol Tartrate 100 MG Tablet PO SCH ×2 (10:07→21:37)
[2018-06-02] MEDS: predniSONE 20 MG Tablet PO SCH (10:07)
[2018-06-02] MEDS: Senna/Docusate Sodium 8.6/50 MG Tablet PO SCH ×2 (10:08→21:38)
[2018-06-02] MEDS: Isosorbide Mononitrate 30 MG ER 24HR Tablet (Imdur) PO SCH (10:30)
--- NOTE | 2018-06-02 12:08 | CT ---
EXAM DATE: 06/02/2018 11:54 AM EDT AGE/SEX: 52 years / Female INDICATIONS: Bilateral foot pain for two weeks. CLINICAL DATA: This is the patient's initial encounter. Patient reports that signs and symptoms have been present for 2 weeks and indicates a pain score of 5/10. MEDICAL/SURGICAL HISTORY: Diabetes. Deep venous thrombosis. Hypertension. Coronary artery stent. RADIATION DOSE: 2.83 CTDI (mGy) COMPARISON: No prior exams available for comparison. TECHNIQUE: Volumetric scanning was performed using a multi-row detector CT scanner during bolus infu bernard of 100 ml Omnipaque 350 (iohexol) nonionic water-soluble contrast as a single exam dose. The data was post processed with a variety of visualization algorithms including full volume maximum inte nsity projection, multi-planar sliding thin slab reformation, curved planar reformation, and surface rendering techniques. Using automated exposure control and adjustment of the mA and/or kV according to patient size, radiation dose was kept as low as reasonably achievable to obtain optimal diagnostic quality images. DICOM format image data is available electronically for review and comparison. FINDINGS: Abdominal Aorta: The abdominal aorta is normal in caliber throughout its length with some scattered a thetotic calcification of the infrarenal abdominal aorta. Single bilateral renal arteries are patent. Nonostial 45% stenosis of the SMA. Celiac and the NICHOLE appear to be patent. Pelvis: Some atherosclerotic calcification of the iliacs bilaterally, particularly the common iliac a rteries. On the right, there is an approximate 55-60% stenosis in the mid external with an additional similar 50-60% stenosis at the junction of the external iliac and common femoral. Despite irregulari ty on the left, the left iliac system is patent throughout Right Lower Extremity: Profundas patent. The SFA occludes at its origin. Collateral reconstitution of the above-knee popliteal. Popliteal is patent down to the trifurcation with three-vessel runoff Left Lower Extremity: There is some mild irregularity of the SFA but the SFA is patent down to the po pliteal. High-grade ostial stenosis of one of the major branch vessels of the profunda. Popliteal is patent and the trifurcation with three-vessel runoff Miscellaneous: Small hiatal hernia. Patient is status post cholecystectomy. 1.7 cm simple cyst in the posterior mid pole of the left kidney. CONCLUSION: 1. Despite atherosclerotic calcification, the inflow is adequate down to the aortic bifurcation. 2. On the right, sequential 50-60% stenosis in the mid right external iliac and junction of the exte rnal iliac and common femoral. SFA occludes at its origin with collateral reconstitution of the dista l above-knee popliteal. Popliteal is patent and the trifurcation with three-vessel runoff. 3. On the left, high-grade ostial stenosis of one of the major branch vessels of the profunda. Other osborn, the outflow is adequate with three-vessel runoff and no significant stenosis in the SFA or popl iteal. 4. Small hiatal hernia. Electronically signed by: Vladimir Solorzano MD 06/02/2018 12:07 PM EDT
--- NOTE | 2018-06-02 12:51 | P.PN ---
Subjective Interval history: F/U PAD. [facility] saturday CTA reviewed Physical Exam Vital signs: Vital Signs 06/01/18 13:00 06/01/18 13:24 06/01/18 14:00 Temperature Pulse Rate 74 79 79 Respiratory Rate 16 18 17 Blood Pressure 174/84 H 154/69 H Pulse Oximetry 98 97 06/01/18 15:00 06/01/18 16:00 06/01/18 18:00 Temperature 98.2 F Pulse Rate 75 80 79 Respiratory Rate 13 28 H Blood Pressure 170/81 H Pulse Oximetry 97 99 06/01/18 19:00 06/01/18 20:00 06/01/18 20:24 Temperature 98.5 F Pulse Rate 75 75 Respiratory Rate 16 16 Blood Pressure 160/81 H Pulse Oximetry 99 97 98 06/01/18 22:32 06/02/18 00:00 06/02/18 00:18 Temperature 98.0 F Pulse Rate 99 H 67 Respiratory Rate 18 Blood Pressure 199/96 H 183/90 H Pulse Oximetry 99 06/02/18 03:57 06/02/18 04:00 06/02/18 04:33 Temperature 98.0 F Pulse Rate 75 79 75 Respiratory Rate 16 20 Blood Pressure 187/89 H Pulse Oximetry 96 06/02/18 09:56 Temperature Pulse Rate Respiratory Rate 16 Blood Pressure Pulse Oximetry 97 Intake & Output 06/01/18 06/02/18 06/02/18 18:59 06:59 18:59 Intake Total 750 / 750 240 / 240 Balance 750 / 750 240 / 240 Weight 81.5 kg Intake: Oral 750 / 750 240 / 240 Other: # Voids 2 1 Date of Last Bowel Movement 06/01/18 # Bowel Movements 1 Narrative: GENERAL: Well-developed and well-nourished in no distress SKIN: Warm and dry. CARDIOVASCULAR: Regular rate and rhythm. RESPIRATORY: No accessory muscle use. Clear to auscultation. Breath sounds equal bilaterally. GASTROINTESTINAL: Abdomen soft, non-tender, nondistended. MUSCULOSKELETAL: Extremities without clubbing, cyanosis, or edema. No obvious deformities. Neurovascularly intact NEUROLOGICAL: Awake and alert. No obvious cranial nerve deficits. Motor grossly within normal limits. Five out of 5 muscle strength in the arms and legs. Normal speech. Results - Labs CBC & Chem 7: 05/30/18 13:49 06/02/18 06:05 Laboratory Results - last 24 hr 06/01/18 06/01/18 06/02/18 16:12 20:40 04:10 Sodium Potassium Chloride Carbon Dioxide Anion Gap BUN Creatinine Estimated GFR POC Glucose 221 H 199 H 74 Random Glucose Calcium Magnesium Phenytoin 06/02/18 06/02/18 06/02/18 06:05 08:09 12:12 Sodium 142 Potassium 3.4 L Chloride 106 Carbon Dioxide 30.3 Anion Gap 6 BUN 16 Creatinine 0.62 Estimated GFR Greater than 89 POC Glucose 133 H 209 H Random Glucose 103 Calcium 8.8 Magnesium 2.0 Phenytoin 11.7 - Imaging Impressions Extremity Arterial Study 05/30/18 00:00 CONCLUSION: 1. The values are consistent with mild ischemia on the left and mild to moderate on the right. Aorta w/Runoff CTA 06/02/18 00:00 CONCLUSION: 1. Despite atherosclerotic calcification, the inflow is adequate down to the aortic bifurcation. 2. On the right, sequential 50-60% stenosis in the mid right external iliac and junction of the external iliac and common femoral. SFA occludes at its origin with collateral reconstitution of the distal above-knee popliteal. Popliteal is patent and the trifurcation with three-vessel runoff. 3. On the left, high-grade ostial stenosis of one of the major branch vessels of the profunda. Otherwise, the outflow is adequate with three-vessel runoff and no significant stenosis in the SFA or popliteal. 4. Small hiatal hernia. - Procedures none Assessment and Plan - Plan This is a 52 yo with hx of chronic pain, seizure disorder on Dilantin, PE/DVT on Xarelto, COPD, diabetes mellitus with neuropathy, hypertension and coronary artery disease status post PCI. She presents to the emergency room because she was diagnosed with bilateral lower extremity DVT 2 days ago at [facility]. She has been complaining of excruciating shocking pain bilateral lower extremities all the way to her groin and numbing discomfort of bilateral feet worse with ambulation. She has chronic neck and lower back pain was on morphine and oxycodone but ran out for 3 weeks now. Denies numbness or incontinence. Doppler sonogram in the ED was negative for DVT. Hypertensive urgency. Improved continue losartan, amlodipine and Lopressor. Imdur increased to 90 mg daily. Discontinue Cardene drip. Continue to monitor with as needed IV Vasotec and clonidine. Drug screen positive for opiates Blurred vision. Improving follow-up ophthalmology consultation NSTEMI with history of coronary artery disease status post PCI of the branch vessel in January 2018. Recommended intervention of the diagonal branch if persistent symptoms. Currently pain-free. Continue aspirin, beta-leidy and nitrate. This is demand ischemia from uncontrolled hypertension per cardiology Bilateral lower extremity pain from PAD and diabetic neuropathy. Abnormal EDYTA and CTA. Consulted vascular surgery for R fempop bypass consider trental/ Pletal continue aspirin, statin and Lyrica. Tobacco cessation COPD exacerbation. CTA negative for PE. Improving continue nebulization and short course steroids Diabetes mellitus. Uncontrolled secondary to steroids. Continue home medications. Patient mildly hypoglycemic this morning . Will decrease Levemir to 60 units at bedtime. Hypoglycemia protocol. DVT and PE continue Xarelto Discharge Planning: C vs rehab in 2-3 days when cleared by Dr Clark
--- NOTE | 2018-06-02 14:34 | P.PNCA ---
Subjective Interval history: alert in nad, c/o cold feet Physical Exam Vital signs: Vital Signs 06/01/18 15:00 06/01/18 16:00 06/01/18 18:00 Temperature 98.2 F Pulse Rate 75 80 79 Respiratory Rate 13 28 H Blood Pressure 170/81 H Pulse Oximetry 97 99 06/01/18 19:00 06/01/18 20:00 06/01/18 20:24 Temperature 98.5 F Pulse Rate 75 75 Respiratory Rate 16 16 Blood Pressure 160/81 H Pulse Oximetry 99 97 98 06/01/18 22:32 06/02/18 00:00 06/02/18 00:18 Temperature 98.0 F Pulse Rate 99 H 67 Respiratory Rate 18 Blood Pressure 199/96 H 183/90 H Pulse Oximetry 99 06/02/18 03:57 06/02/18 04:00 06/02/18 04:33 Temperature 98.0 F Pulse Rate 75 79 75 Respiratory Rate 16 20 Blood Pressure 187/89 H Pulse Oximetry 96 06/02/18 08:00 06/02/18 09:56 06/02/18 12:00 Temperature 99.1 F 98.9 F Pulse Rate 74 72 Respiratory Rate 16 18 Blood Pressure 202/93 H 176/84 H Pulse Oximetry 99 97 99 Intake & Output 06/01/18 06/02/18 06/02/18 18:59 06:59 18:59 Intake Total 750 / 750 240 / 240 Balance 750 / 750 240 / 240 Weight 81.5 kg Intake: Oral 750 / 750 240 / 240 Other: # Voids 2 1 Date of Last Bowel Movement 06/01/18 # Bowel Movements 1 Assessment and Plan - Assessment (1) NSTEMI (non-ST elevated myocardial infarction) Code(s): I21.4 - Non-ST elevation (NSTEMI) myocardial infarction Status: Acute (2) Pulmonary embolism Code(s): I26.99 - Other pulmonary embolism without acute cor pulmonale Status : Acute (3) HTN (hypertension) Code(s): I10 - Essential (primary) hypertension Status: Acute (4) Tobacco abuse Code(s): Z72.0 - Tobacco use Status: Acute - Plan 1.) HTN - trop elevation probably secondary to htn, assymptomatic, patient strongly advised to stop smoking
--- NOTE | 2018-06-02 16:35 | P.PNVS ---
Subjective Subjective/Hospital Course: Patient seen full consult dictated She just had pulmonary angiogram to rule out pulmonary embolism so I do not want to load the patient with another dye bolus this close together but next week we do not do CTA with a runoff. Patient clearly has some drop off as far as the pressures are concerned in both legs and ABIs 0.6 on the right and 0.7 on the left signifying some degree of vascular disease and vascular occlusive changes probably consistent with diabetes and vascular occlusive disease between the groin and the knees, right more than left hand probably some degree of small vessel diabetic type vascular occlusive changes below the level of the knee. We will go ahead with CTA with runoff next week if see if we can fix something. At this point patient does not have acute or limb threatening ischemia. 06/02/2018 I reviewed the CTA with a runoff and this confirms the initial clinical impression Patient has worse disease on the right than on the left On the right patient has occlusion of SFA and some degree of inflow stenosis of distal external iliac and common femoral arteries with reconstitution of the popliteal artery for which patient will be taken to the operating room this week and undergo femoral-popliteal bypass with endarterectomy. On the left side patient has lesser degree of disease with near occlusion of the profunda and depending how patient does with the right side eventually she may go for profundoplasty on the left side in the next month or so. So in summary plan is to take patient for right femoral-popliteal bypass on Saturday I discussed with the patient at length and she agrees to the procedure Objective Vital Signs / I&O: Vital Signs 06/01/18 18:00 06/01/18 19:00 06/01/18 20:00 Temperature 98.5 F Pulse Rate 79 75 Respiratory Rate 16 Blood Pressure 160/81 H Pulse Oximetry 99 97 06/01/18 20:24 06/01/18 22:32 06/02/18 00:00 Temperature 98.0 F Pulse Rate 75 99 H 67 Respiratory Rate 16 18 Blood Pressure 199/96 H Pulse Oximetry 98 99 06/02/18 00:18 06/02/18 03:57 06/02/18 04:00 Temperature Pulse Rate 75 79 Respiratory Rate 16 Blood Pressure 183/90 H Pulse Oximetry 06/02/18 04:33 06/02/18 08:00 06/02/18 09:56 Temperature 98.0 F 99.1 F Pulse Rate 75 74 Respiratory Rate 20 16 Blood Pressure 187/89 H 202/93 H Pulse Oximetry 96 99 97 06/02/18 12:00 06/02/18 15:59 Temperature 98.9 F Pulse Rate 72 82 Respiratory Rate 18 18 Blood Pressure 176/84 H Pulse Oximetry 99 Intake & Output 06/01/18 06/02/18 06/02/18 18:59 06:59 18:59 Intake Total 750 / 750 240 / 240 Balance 750 / 750 240 / 240 Weight 81.5 kg Intake: Oral 750 / 750 240 / 240 Other: # Voids 2 1 Date of Last Bowel Movement 06/01/18 # Bowel Movements 1 Laboratory Results - last 24 hr 06/01/18 06/02/18 06/02/18 20:40 04:10 06:05 Sodium 142 Potassium 3.4 L Chloride 106 Carbon Dioxide 30.3 Anion Gap 6 BUN 16 Creatinine 0.62 Estimated GFR Greater than 89 POC Glucose 199 H 74 Random Glucose 103 Calcium 8.8 Magnesium 2.0 Phenytoin 11.7 06/02/18 06/02/18 08:09 12:12 Sodium Potassium Chloride Carbon Dioxide Anion Gap BUN Creatinine Estimated GFR POC Glucose 133 H 209 H Random Glucose Calcium Magnesium Phenytoin Impressions Extremity Arterial Study 05/30/18 00:00 CONCLUSION: 1. The values are consistent with mild ischemia on the left and mild to moderate on the right. Aorta w/Runoff CTA 06/02/18 00:00 CONCLUSION: 1. Despite atherosclerotic calcification, the inflow is adequate down to the aortic bifurcation. 2. On the right, sequential 50-60% stenosis in the mid right external iliac and junction of the external iliac and common femoral. SFA occludes at its origin with collateral reconstitution of the distal above-knee popliteal. Popliteal is patent and the trifurcation with three-vessel runoff. 3. On the left, high-grade ostial stenosis of one of the major branch vessels of the profunda. Otherwise, the outflow is adequate with three-vessel runoff and no significant stenosis in the SFA or popliteal. 4. Small hiatal hernia.
[2018-06-02] MEDS: Rivaroxaban 20 MG Tablet PO SCH (17:35)
[2018-06-02] MEDS: Montelukast 10 MG Tablet PO SCH (17:35)
[2018-06-02] MEDS: Budesonide-Formoterol 160/4.5 MCG 6 GM Inhaler INH SCH ×2 (20:45→21:41)
[2018-06-02] MEDS: Morphine Inj 4 MG/ML Vial IV.PUSH PRN (21:33)
[2018-06-02] MEDS: Insulin Detemir Inj 1,000 UNIT/10 ML Vial SQ SCH (21:43)
[2018-06-03] MEDS: oxyCODONE/Acetaminophen 10/325 Tablet PO PRN ×3 (01:07→20:20)
[2018-06-03] MEDS: Chlorhexidine Gluconate 2% 1 Pack (2 Cloths) TOPICAL SCH (04:17)
[2018-06-03] MEDS: Morphine Inj 4 MG/ML Vial IV.PUSH PRN ×2 (05:01→11:28)
[2018-06-03] MEDS: Insulin NovoLOG Aspart Correctional Sugar Inj SQ SCH ×4 (07:57→20:25)
[2018-06-03] MEDS: Phenytoin Sodium 100 MG Capsule PO SCH ×2 (09:50→20:17)
[2018-06-03] MEDS: Metoprolol Tartrate 100 MG Tablet PO SCH ×2 (09:50→20:17)
[2018-06-03] MEDS: Pregabalin 75 MG Capsule PO SCH ×2 (09:51→20:17)
[2018-06-03] MEDS: Senna/Docusate Sodium 8.6/50 MG Tablet PO SCH ×2 (09:51→20:17)
[2018-06-03] MEDS: Isosorbide Mononitrate 30 MG ER 24HR Tablet (Imdur) PO SCH (09:51)
[2018-06-03] MEDS: predniSONE 20 MG Tablet PO SCH (09:51)
[2018-06-03] MEDS: amLODIPine 10 MG Tablet PO SCH (09:52)
[2018-06-03] MEDS: Budesonide-Formoterol 160/4.5 MCG 6 GM Inhaler INH SCH ×2 (10:02→20:21)
[2018-06-03 10:04] LABS: Anion Gap 8 meq/L (5-15); Blood Urea Nitrogen 21 mg/dL (7-18); Calcium 8.8 mg/dL (8.5-10.1); Carbon Dioxide 28.9 meq/L (21.0-32.0); Chloride 105 meq/L (98-107); Glomerular Filtration Rate Greater Than 89 mL/min (>89); Glucose,Random 70 mg/dL (74-106); Potassium 3.4 meq/L (3.5-5.1); Sodium 142 meq/L (136-145)
--- NOTE | 2018-06-03 13:50 | P.PNCA ---
Subjective Interval history: c/o bilat lower extremity pain, denies dyspnea or chest pain Physical Exam Vital signs: Vital Signs 06/02/18 15:59 06/02/18 16:00 06/02/18 20:00 Temperature 98.8 F 98 F Pulse Rate 82 86 85 Respiratory Rate 18 18 18 Blood Pressure 156/76 H 179/86 H Pulse Oximetry 96 98 06/02/18 21:37 06/03/18 00:25 06/03/18 03:31 Temperature Pulse Rate 82 88 Respiratory Rate 14 18 16 Blood Pressure Pulse Oximetry 06/03/18 04:00 06/03/18 07:58 06/03/18 08:00 Temperature 98.9 F 99.3 F Pulse Rate 89 77 Respiratory Rate 17 18 16 Blood Pressure 186/88 H 175/89 H Pulse Oximetry 96 100 06/03/18 09:38 06/03/18 11:29 06/03/18 12:00 Temperature 98.1 F Pulse Rate 78 75 Respiratory Rate 16 20 18 Blood Pressure 146/71 H Pulse Oximetry 98 98 06/03/18 12:32 Temperature Pulse Rate Respiratory Rate 20 Blood Pressure Pulse Oximetry Intake & Output 06/02/18 06/03/18 06/03/18 18:59 06:59 18:59 Intake Total 960 / 960 Balance 960 / 960 Intake: Oral 960 / 960 Other: # Voids 3 Date of Last Bowel Movement 06/01/18 06/01/18 # Bowel Movements 1 Assessment and Plan - Assessment (1) NSTEMI (non-ST elevated myocardial infarction) Code(s): I21.4 - Non-ST elevation (NSTEMI) myocardial infarction Status: Acute (2) Pulmonary embolism Code(s): I26.99 - Other pulmonary embolism without acute cor pulmonale Status : Acute (3) HTN (hypertension) Code(s): I10 - Essential (primary) hypertension Status: Acute (4) Tobacco abuse Code(s): Z72.0 - Tobacco use Status: Acute - Plan 1.) HTN - trop elevation probably secondary to htn, assymptomatic, patient strongly advised to stop smoking 2.) Pre-op - rec mps due to multiple risk factors and inability to assess functional capacity due to pvd and claudication
--- NOTE | 2018-06-03 14:13 | P.PN ---
Subjective Interval history: Follow-up PAD. Patient for bypass tomorrow. Denies chest pain discussed with cardiology for MPS. BP improved. Hyperglycemic yesterday afternoon patient did not receive morning dose Levemir. Physical Exam Vital signs: Vital Signs 06/02/18 15:59 06/02/18 16:00 06/02/18 20:00 Temperature 98.8 F 98 F Pulse Rate 82 86 85 Respiratory Rate 18 18 18 Blood Pressure 156/76 H 179/86 H Pulse Oximetry 96 98 06/02/18 21:37 06/03/18 00:25 06/03/18 03:31 Temperature Pulse Rate 82 88 Respiratory Rate 14 18 16 Blood Pressure Pulse Oximetry 06/03/18 04:00 06/03/18 07:58 06/03/18 08:00 Temperature 98.9 F 99.3 F Pulse Rate 89 77 Respiratory Rate 17 18 16 Blood Pressure 186/88 H 175/89 H Pulse Oximetry 96 100 06/03/18 09:38 06/03/18 11:29 06/03/18 12:00 Temperature 98.1 F Pulse Rate 78 75 Respiratory Rate 16 20 18 Blood Pressure 146/71 H Pulse Oximetry 98 98 06/03/18 12:32 Temperature Pulse Rate Respiratory Rate 20 Blood Pressure Pulse Oximetry Intake & Output 06/02/18 06/03/18 06/03/18 18:59 06:59 18:59 Intake Total 960 / 960 Balance 960 / 960 Intake: Oral 960 / 960 Other: # Voids 3 Date of Last Bowel Movement 06/01/18 06/01/18 # Bowel Movements 1 Narrative: GENERAL: Well-developed and well-nourished in no distress SKIN: Warm and dry. CARDIOVASCULAR: Regular rate and rhythm. RESPIRATORY: No accessory muscle use. Clear to auscultation. Breath sounds equal bilaterally. GASTROINTESTINAL: Abdomen soft, non-tender, nondistended. MUSCULOSKELETAL: Extremities without clubbing, cyanosis, or edema. No obvious deformities. Neurovascularly intact NEUROLOGICAL: Awake and alert. No obvious cranial nerve deficits. Motor grossly within normal limits. Five out of 5 muscle strength in the arms and legs. Normal speech. Results - Labs CBC & Chem 7: 05/30/18 13:49 06/03/18 08:13 Laboratory Results - last 24 hr 06/02/18 06/02/18 06/03/18 17:07 21:34 07:57 Sodium Potassium Chloride Carbon Dioxide Anion Gap BUN Creatinine Estimated GFR POC Glucose 355 H 214 H 89 Random Glucose Calcium 06/03/18 06/03/18 06/03/18 08:13 09:57 11:32 Sodium 142 Potassium 3.4 L Chloride 105 Carbon Dioxide 28.9 Anion Gap 8 BUN 21 H Creatinine 0.69 Estimated GFR Greater than 89 POC Glucose 185 H 229 H Random Glucose 70 L Calcium 8.8 - Procedures none Assessment and Plan - Plan This is a 52 yo with hx of chronic pain, seizure disorder on Dilantin, PE/DVT on Xarelto, COPD, diabetes mellitus with neuropathy, hypertension and coronary artery disease status post PCI. She presents to the emergency room because she was diagnosed with bilateral lower extremity DVT 2 days ago at [facility]. She has been complaining of excruciating shocking pain bilateral lower extremities all the way to her groin and numbing discomfort of bilateral feet worse with ambulation. She has chronic neck and lower back pain was on morphine and oxycodone but ran out for 3 weeks now. Denies numbness or incontinence. Doppler sonogram in the ED was negative for DVT. Hypertensive urgency. Improved continue losartan, amlodipine, Imdur and Lopressor. Discontinue Cardene drip. Continue to monitor with as needed IV Vasotec and clonidine. Drug screen positive for opiates Blurred vision. Improving follow-up ophthalmology consultation NSTEMI with history of coronary artery disease status post PCI of the branch vessel in January 2018. Recommended intervention of the diagonal branch if persistent symptoms. Currently pain-free. Continue aspirin, beta-leidy and nitrate. This is demand ischemia from uncontrolled hypertension per cardiology. For MPS Bilateral lower extremity pain from PAD and diabetic neuropathy. Abnormal EDYTA and CTA. Consulted vascular surgery for R fempop bypass tomorrow consider trental/Pletal continue aspirin, statin and Lyrica. Tobacco cessation COPD exacerbation. CTA negative for PE. Improving continue nebulization and short course steroids Diabetes mellitus. Uncontrolled secondary to steroids. Continue home medications. We will give half of the morning dose tomorrow she will be n.p.o. Hypoglycemia protocol. DVT and PE continue Xarelto Discharge Planning: HHC vs rehab in 2-3 days when cleared by Dr Clark
--- NOTE | 2018-06-03 14:43 | P.PNVS ---
Subjective Subjective/Hospital Course: Patient seen full consult dictated She just had pulmonary angiogram to rule out pulmonary embolism so I do not want to load the patient with another dye bolus this close together but next week we do not do CTA with a runoff. Patient clearly has some drop off as far as the pressures are concerned in both legs and ABIs 0.6 on the right and 0.7 on the left signifying some degree of vascular disease and vascular occlusive changes probably consistent with diabetes and vascular occlusive disease between the groin and the knees, right more than left hand probably some degree of small vessel diabetic type vascular occlusive changes below the level of the knee. We will go ahead with CTA with runoff next week if see if we can fix something. At this point patient does not have acute or limb threatening ischemia. 06/02/2018 I reviewed the CTA with a runoff and this confirms the initial clinical impression Patient has worse disease on the right than on the left On the right patient has occlusion of SFA and some degree of inflow stenosis of distal external iliac and common femoral arteries with reconstitution of the popliteal artery for which patient will be taken to the operating room this week and undergo femoral-popliteal bypass with endarterectomy. On the left side patient has lesser degree of disease with near occlusion of the profunda and depending how patient does with the right side eventually she may go for profundoplasty on the left side in the next month or so. So in summary plan is to take patient for right femoral-popliteal bypass on Saturday I discussed with the patient at length and she agrees to the procedure 06/03/2018 Patient with ischemia of both legs right more than left Discussed with medicine attending and patient at this point is ready to undergo surgery She is scheduled, all things equal, for right femoral-popliteal bypass tomorrow Objective Vital Signs / I&O: Vital Signs 06/02/18 15:59 06/02/18 16:00 06/02/18 20:00 Temperature 98.8 F 98 F Pulse Rate 82 86 85 Respiratory Rate 18 18 18 Blood Pressure 156/76 H 179/86 H Pulse Oximetry 96 98 06/02/18 21:37 06/03/18 00:25 06/03/18 03:31 Temperature Pulse Rate 82 88 Respiratory Rate 14 18 16 Blood Pressure Pulse Oximetry 06/03/18 04:00 06/03/18 07:58 06/03/18 08:00 Temperature 98.9 F 99.3 F Pulse Rate 89 77 Respiratory Rate 17 18 16 Blood Pressure 186/88 H 175/89 H Pulse Oximetry 96 100 06/03/18 09:38 06/03/18 11:29 06/03/18 12:00 Temperature 98.1 F Pulse Rate 78 75 Respiratory Rate 16 20 18 Blood Pressure 146/71 H Pulse Oximetry 98 98 06/03/18 12:32 Temperature Pulse Rate Respiratory Rate 20 Blood Pressure Pulse Oximetry Intake & Output 06/02/18 06/03/18 06/03/18 18:59 06:59 18:59 Intake Total 960 / 960 Balance 960 / 960 Intake: Oral 960 / 960 Other: # Voids 3 Date of Last Bowel Movement 06/01/18 06/01/18 # Bowel Movements 1 Laboratory Results - last 24 hr 06/02/18 06/02/18 06/03/18 17:07 21:34 07:57 Sodium Potassium Chloride Carbon Dioxide Anion Gap BUN Creatinine Estimated GFR POC Glucose 355 H 214 H 89 Random Glucose Calcium 06/03/18 06/03/18 06/03/18 08:13 09:57 11:32 Sodium 142 Potassium 3.4 L Chloride 105 Carbon Dioxide 28.9 Anion Gap 8 BUN 21 H Creatinine 0.69 Estimated GFR Greater than 89 POC Glucose 185 H 229 H Random Glucose 70 L Calcium 8.8 Impressions Extremity Arterial Study 05/30/18 00:00 CONCLUSION: 1. The values are consistent with mild ischemia on the left and mild to moderate on the right. Aorta w/Runoff CTA 06/02/18 00:00 CONCLUSION: 1. Despite atherosclerotic calcification, the inflow is adequate down to the aortic bifurcation. 2. On the right, sequential 50-60% stenosis in the mid right external iliac and junction of the external iliac and common femoral. SFA occludes at its origin with collateral reconstitution of the distal above-knee popliteal. Popliteal is patent and the trifurcation with three-vessel runoff. 3. On the left, high-grade ostial stenosis of one of the major branch vessels of the profunda. Otherwise, the outflow is adequate with three-vessel runoff and no significant stenosis in the SFA or popliteal. 4. Small hiatal hernia.
[2018-06-03 16:32] LABS: Hematocrit 35.4 % (35.0-46.0); Hemoglobin 11.5 gm/dL (11.6-15.3); Mean Corpuscular HGB Conc 32.4 % (32.0-36.0); Mean Corpuscular Hemoglobin 27.4 pg (27.0-34.0); Mean Corpuscular Volume 84.6 fL (80.0-100.0); Mean Platelet Volume 7.8 fL (7.0-11.0); Platelet Count 305 th/mm3 (150-450); Red Blood Count 4.18 mil/mm3 (4.00-5.30); White Blood Count 7.3 th/mm3 (4.0-11.0)
[2018-06-03 16:58] LABS: Calcium 8.6 mg/dL (8.5-10.1); Carbon Dioxide 28.1 meq/L (21.0-32.0); Potassium 4.4 meq/L (3.5-5.1)
[2018-06-03] MEDS: Montelukast 10 MG Tablet PO SCH (17:26)
[2018-06-03] MEDS: Rivaroxaban 20 MG Tablet PO SCH (17:26)
[2018-06-03] MEDS: Insulin Detemir Inj 1,000 UNIT/10 ML Vial SQ SCH (20:30)
[2018-06-03] MEDS ORDERED: Chlorhexidine Gluconate 2% 1 Pack (2 Cloths) TOPICAL SCH (23:30)
[2018-06-03] MEDS ORDERED: Sodium Chlor 0.9% Inj 500 ML IV.SIG SCH (23:45)
[2018-06-04] MEDS: oxyCODONE/Acetaminophen 10/325 Tablet PO PRN ×4 (02:22→22:55)
[2018-06-04] MEDS: Dextrose 50% in Water 50 ML Vial IV.PUSH PRN ×2 (05:22→11:22)
[2018-06-04] MEDS: Chlorhexidine Gluconate 2% 1 Pack (2 Cloths) TOPICAL SCH (05:56)
[2018-06-04] MEDS ORDERED: Insulin Detemir Inj 1,000 UNIT/10 ML Vial SQ ONE (08:00)
[2018-06-04] MEDS: Pregabalin 75 MG Capsule PO SCH ×2 (08:12→20:13)
[2018-06-04] MEDS: Phenytoin Sodium 100 MG Capsule PO SCH ×2 (08:12→20:13)
[2018-06-04] MEDS: Metoprolol Tartrate 100 MG Tablet PO SCH ×2 (08:13→20:12)
[2018-06-04] MEDS: predniSONE 20 MG Tablet PO SCH (10:09)
[2018-06-04] MEDS: Senna/Docusate Sodium 8.6/50 MG Tablet PO SCH ×2 (10:09→20:26)
[2018-06-04] MEDS: Morphine Inj 4 MG/ML Vial IV.PUSH PRN ×2 (10:18→20:16)
[2018-06-04] MEDS: Insulin NovoLOG Aspart Correctional Sugar Inj SQ SCH ×4 (10:20→20:21)
[2018-06-04] MEDS: Budesonide-Formoterol 160/4.5 MCG 6 GM Inhaler INH SCH ×2 (10:21→20:26)
[2018-06-04] MEDS: amLODIPine 10 MG Tablet PO SCH (10:21)
[2018-06-04] MEDS: Isosorbide Mononitrate 60 MG ER 24HR Tablet (Imdur) PO SCH (12:49)
--- NOTE | 2018-06-04 14:25 | P.PN ---
Subjective Interval history: Follow-up diabetes mellitus. Patient was hypoglycemic was n.p.o. She was upset and decided to eat. Scheduled for MPS and femoropopliteal bypass Physical Exam Vital signs: Vital Signs 06/03/18 16:00 06/03/18 16:10 06/03/18 20:00 Temperature 99.1 F 99.4 F Pulse Rate 84 74 84 Respiratory Rate 18 17 18 Blood Pressure 163/78 H 169/78 H Pulse Oximetry 97 95 06/04/18 00:00 06/04/18 00:05 06/04/18 04:00 Temperature 97.9 F 98.5 F Pulse Rate 76 76 Respiratory Rate 18 18 18 Blood Pressure 174/87 H 176/78 H Pulse Oximetry 99 97 06/04/18 08:00 06/04/18 12:00 06/04/18 12:48 Temperature 98.1 F 98.0 F Pulse Rate 69 64 Respiratory Rate 16 18 20 Blood Pressure 188/85 H 194/82 H Pulse Oximetry 98 99 Intake & Output 06/03/18 06/04/18 06/04/18 18:59 06:59 18:59 Intake Total 960 / 960 Balance 960 / 960 Intake: Oral 960 / 960 Other: # Voids 2 3 Date of Last Bowel Movement 06/03/18 06/03/18 # Bowel Movements 2 Narrative: GENERAL: Well-developed and well-nourished in no distress SKIN: Warm and dry. CARDIOVASCULAR: Regular rate and rhythm. RESPIRATORY: No accessory muscle use. Clear to auscultation. Breath sounds equal bilaterally. GASTROINTESTINAL: Abdomen soft, non-tender, nondistended. MUSCULOSKELETAL: Extremities without clubbing, cyanosis, or edema. No obvious deformities. Neurovascularly intact NEUROLOGICAL: Awake and alert. No obvious cranial nerve deficits. Motor grossly within normal limits. Five out of 5 muscle strength in the arms and legs. Normal speech. Results - Labs CBC & Chem 7: 06/03/18 16:11 06/03/18 16:11 Laboratory Results - last 24 hr 06/03/18 06/03/18 06/03/18 16:11 16:11 16:11 WBC 7.3 RBC 4.18 Hgb 11.5 L Hct 35.4 MCV 84.6 MCH 27.4 MCHC 32.4 RDW 15.0 Plt Count 305 MPV 7.8 Sodium 140 Potassium 4.4 D Chloride 103 Carbon Dioxide 28.1 Anion Gap 9 BUN 22 H Creatinine 0.93 Estimated GFR 76 L POC Glucose Random Glucose 185 H D Calcium 8.6 Blood Type O Positive Antibody Screen Negative 06/03/18 06/03/18 06/04/18 16:25 20:23 05:19 WBC RBC Hgb Hct MCV MCH MCHC RDW Plt Count MPV Sodium Potassium Chloride Carbon Dioxide Anion Gap BUN Creatinine Estimated GFR POC Glucose 210 H 374 H 55 L Random Glucose Calcium Blood Type Antibody Screen 06/04/18 06/04/18 06/04/18 05:30 11:11 11:54 WBC RBC Hgb Hct MCV MCH MCHC RDW Plt Count MPV Sodium Potassium Chloride Carbon Dioxide Anion Gap BUN Creatinine Estimated GFR POC Glucose 166 H 50 L 118 H Random Glucose Calcium Blood Type Antibody Screen - Procedures none Assessment and Plan - Plan This is a 52 yo with hx of chronic pain, seizure disorder on Dilantin, PE/DVT on Xarelto, COPD, diabetes mellitus with neuropathy, hypertension and coronary artery disease status post PCI. She presents to the emergency room because she was diagnosed with bilateral lower extremity DVT 2 days ago at [facility]. She has been complaining of excruciating shocking pain bilateral lower extremities all the way to her groin and numbing discomfort of bilateral feet worse with ambulation. She has chronic neck and lower back pain was on morphine and oxycodone but ran out for 3 weeks now. Denies numbness or incontinence. Doppler sonogram in the ED was negative for DVT. Hypertensive urgency. Improved continue losartan, amlodipine, Imdur and Lopressor. Discontinue Cardene drip. Continue to monitor with as needed IV Vasotec and clonidine. Drug screen positive for opiates Blurred vision. Improving follow-up ophthalmology consultation NSTEMI with history of coronary artery disease status post PCI of the branch vessel in January 2018. Recommended intervention of the diagonal branch if persistent symptoms. Currently pain-free. Continue aspirin, beta-leidy and nitrate. This is demand ischemia from uncontrolled hypertension per cardiology. For MPS Bilateral lower extremity pain from PAD and diabetic neuropathy. Abnormal EDYTA and CTA. Consulted vascular surgery for R fempop bypass tomorrow consider trental/Pletal continue aspirin, statin and Lyrica. Tobacco cessation COPD exacerbation. CTA negative for PE. Improving continue nebulization. Continue prednisone Diabetes mellitus. Uncontrolled secondary to steroids. Continue home medications. Hypoglycemic decrease Levemir to 60 units in the morning and 6 units at bedtime. Hypoglycemia protocol. DVT and PE continue Xarelto Discharge Planning: HHC vs rehab in 2-3 days when cleared by Dr Clark
--- NOTE | 2018-06-04 15:56 | P.PNCA ---
Subjective Interval history: alert in nad Physical Exam Vital signs: Vital Signs 06/03/18 16:00 06/03/18 16:10 06/03/18 20:00 Temperature 99.1 F 99.4 F Pulse Rate 84 74 84 Respiratory Rate 18 17 18 Blood Pressure 163/78 H 169/78 H Pulse Oximetry 97 95 06/04/18 00:00 06/04/18 00:05 06/04/18 04:00 Temperature 97.9 F 98.5 F Pulse Rate 76 76 Respiratory Rate 18 18 18 Blood Pressure 174/87 H 176/78 H Pulse Oximetry 99 97 06/04/18 08:00 06/04/18 12:00 06/04/18 12:48 Temperature 98.1 F 98.0 F Pulse Rate 69 64 Respiratory Rate 16 18 20 Blood Pressure 188/85 H 194/82 H Pulse Oximetry 98 99 Intake & Output 06/03/18 06/04/18 06/04/18 18:59 06:59 18:59 Intake Total 960 / 960 Balance 960 / 960 Intake: Oral 960 / 960 Other: # Voids 2 3 Date of Last Bowel Movement 06/03/18 06/03/18 # Bowel Movements 2 Assessment and Plan - Assessment (1) NSTEMI (non-ST elevated myocardial infarction) Code(s): I21.4 - Non-ST elevation (NSTEMI) myocardial infarction Status: Acute (2) Pulmonary embolism Code(s): I26.99 - Other pulmonary embolism without acute cor pulmonale Status : Acute (3) HTN (hypertension) Code(s): I10 - Essential (primary) hypertension Status: Acute (4) Tobacco abuse Code(s): Z72.0 - Tobacco use Status: Acute - Plan 1.) HTN - trop elevation probably secondary to htn, assymptomatic, patient strongly advised to stop smoking 2.) Pre-op - rec mps due to nstemi, multiple risk factors and inability to assess functional capacity due to pvd and claudication
[2018-06-04] MEDS: Montelukast 10 MG Tablet PO SCH (18:24)
[2018-06-04] MEDS: Rivaroxaban 20 MG Tablet PO SCH (18:24)
--- NOTE | 2018-06-04 18:48 | P.PNVS ---
Subjective Subjective/Hospital Course: Patient seen full consult dictated She just had pulmonary angiogram to rule out pulmonary embolism so I do not want to load the patient with another dye bolus this close together but next week we do not do CTA with a runoff. Patient clearly has some drop off as far as the pressures are concerned in both legs and ABIs 0.6 on the right and 0.7 on the left signifying some degree of vascular disease and vascular occlusive changes probably consistent with diabetes and vascular occlusive disease between the groin and the knees, right more than left hand probably some degree of small vessel diabetic type vascular occlusive changes below the level of the knee. We will go ahead with CTA with runoff next week if see if we can fix something. At this point patient does not have acute or limb threatening ischemia. 06/02/2018 I reviewed the CTA with a runoff and this confirms the initial clinical impression Patient has worse disease on the right than on the left On the right patient has occlusion of SFA and some degree of inflow stenosis of distal external iliac and common femoral arteries with reconstitution of the popliteal artery for which patient will be taken to the operating room this week and undergo femoral-popliteal bypass with endarterectomy. On the left side patient has lesser degree of disease with near occlusion of the profunda and depending how patient does with the right side eventually she may go for profundoplasty on the left side in the next month or so. So in summary plan is to take patient for right femoral-popliteal bypass on Saturday I discussed with the patient at length and she agrees to the procedure 06/03/2018 Patient with ischemia of both legs right more than left Discussed with medicine attending and patient at this point is ready to undergo surgery She is scheduled, all things equal, for right femoral-popliteal bypass tomorrow 06/04/2018 Patient was scheduled for right femoral-popliteal bypass today however she ate twice once in the morning after she felt that her sugar was low and then second time in afternoon being unhappy about delaying surgery, so the surgery was canceled I discussed this with patient at length and at this point I told patient that compliance with care is paramount in an absence of the same I am not able to care adequately for the patient. She understands. Patient will undergo tomorrow morning stress test and if negative, in the afternoon the right femoral-popliteal bypass. If the stress test turns out to be positive and patient needs further cardiac interventions of course the peripheral vascular surgery will be canceled and postponed. Objective Vital Signs / I&O: Vital Signs 06/03/18 20:00 06/04/18 00:00 06/04/18 00:05 Temperature 99.4 F 97.9 F Pulse Rate 84 76 Respiratory Rate 18 18 18 Blood Pressure 169/78 H 174/87 H Pulse Oximetry 95 99 06/04/18 04:00 06/04/18 08:00 06/04/18 12:00 Temperature 98.5 F 98.1 F 98.0 F Pulse Rate 76 69 64 Respiratory Rate 18 16 18 Blood Pressure 176/78 H 188/85 H 194/82 H Pulse Oximetry 97 98 99 06/04/18 12:48 06/04/18 18:01 Temperature Pulse Rate Respiratory Rate 20 20 Blood Pressure Pulse Oximetry Intake & Output 06/03/18 06/04/18 06/04/18 18:59 06:59 18:59 Intake Total 960 / 960 Balance 960 / 960 Intake: Oral 960 / 960 Other: # Voids 2 3 Date of Last Bowel Movement 06/03/18 06/03/18 # Bowel Movements 2 Laboratory Results - last 24 hr 06/03/18 06/04/18 06/04/18 20:23 05:19 05:30 POC Glucose 374 H 55 L 166 H 06/04/18 06/04/18 11:11 11:54 POC Glucose 50 L 118 H
[2018-06-04] MEDS ORDERED: Insulin Detemir Inj 1,000 UNIT/10 ML Vial SQ SCH (21:00)
[2018-06-05] MEDS ORDERED: Insulin Detemir Inj 1,000 UNIT/10 ML Vial SQ SCH ×3 (08:00→21:00)
[2018-06-05] MEDS: Insulin NovoLOG Aspart Correctional Sugar Inj SQ SCH ×4 (08:57→22:37)
[2018-06-05] MEDS: Pregabalin 75 MG Capsule PO SCH ×2 (08:58→22:29)
[2018-06-05] MEDS: Metoprolol Tartrate 100 MG Tablet PO SCH ×2 (08:58→22:28)
[2018-06-05] MEDS: amLODIPine 10 MG Tablet PO SCH (08:58)
[2018-06-05] MEDS: Isosorbide Mononitrate 60 MG ER 24HR Tablet (Imdur) PO SCH (08:58)
[2018-06-05] MEDS: Phenytoin Sodium 100 MG Capsule PO SCH ×2 (08:59→22:29)
[2018-06-05] MEDS: Senna/Docusate Sodium 8.6/50 MG Tablet PO SCH ×2 (09:01→22:28)
[2018-06-05] MEDS: Budesonide-Formoterol 160/4.5 MCG 6 GM Inhaler INH SCH ×2 (09:01→22:36)
[2018-06-05] MEDS: oxyCODONE/Acetaminophen 10/325 Tablet PO PRN ×2 (09:01→17:40)
--- NOTE | 2018-06-05 11:07 | P.PN ---
Subjective Interval history: Follow-up PAD, hypertension and diabetes mellitus. Patient has no complaints. Patient educated on diabetes and hypertension management. Physical Exam Vital signs: Vital Signs 06/04/18 12:00 06/04/18 12:48 06/04/18 18:01 Temperature 98.0 F Pulse Rate 64 Respiratory Rate 18 20 20 Blood Pressure 194/82 H Pulse Oximetry 99 06/04/18 20:42 06/05/18 00:10 06/05/18 00:39 Temperature 98.5 F 98.2 F Pulse Rate 76 70 Respiratory Rate 18 18 18 Blood Pressure 214/96 H 184/86 H Pulse Oximetry 98 98 06/05/18 04:46 06/05/18 08:00 Temperature 97.9 F 99.1 F Pulse Rate 72 72 Respiratory Rate 16 Blood Pressure 179/80 H 195/93 H Pulse Oximetry 97 Intake & Output 06/04/18 06/05/18 06/05/18 18:59 06:59 18:59 Weight 81.5 kg Other: # Voids 3 Date of Last Bowel Movement 06/03/18 06/03/18 06/03/18 Narrative: GENERAL: Well-developed and well-nourished in no distress SKIN: Warm and dry. CARDIOVASCULAR: Regular rate and rhythm. RESPIRATORY: No accessory muscle use. Clear to auscultation. Breath sounds equal bilaterally. GASTROINTESTINAL: Abdomen soft, non-tender, nondistended. MUSCULOSKELETAL: Extremities without clubbing, cyanosis, or edema. No obvious deformities. Neurovascularly intact NEUROLOGICAL: Awake and alert. No obvious cranial nerve deficits. Motor grossly within normal limits. Five out of 5 muscle strength in the arms and legs. Normal speech. Results - Labs CBC & Chem 7: 06/03/18 16:11 06/03/18 16:11 Laboratory Results - last 24 hr 06/04/18 06/04/18 06/04/18 11:11 11:54 17:24 POC Glucose 50 L 118 H Hemoglobin A1c 15.0 H 06/04/18 06/05/18 06/05/18 20:11 03:36 07:51 POC Glucose 264 H 207 H 165 H Hemoglobin A1c - Procedures none Assessment and Plan - Plan This is a 52 yo with hx of chronic pain, seizure disorder on Dilantin, PE/DVT on Xarelto, COPD, diabetes mellitus with neuropathy, hypertension and coronary artery disease status post PCI. She presents to the emergency room because she was diagnosed with bilateral lower extremity DVT 2 days ago at [facility]. She has been complaining of excruciating shocking pain bilateral lower extremities all the way to her groin and numbing discomfort of bilateral feet worse with ambulation. She has chronic neck and lower back pain was on morphine and oxycodone but ran out for 3 weeks now. Denies numbness or incontinence. Doppler sonogram in the ED was negative for DVT. Hypertensive urgency. Still not well controlled add hydralazine continue losartan, amlodipine, Imdur and Lopressor. Discontinue Cardene drip. Continue to monitor with as needed IV Vasotec and clonidine. Drug screen positive for opiates Blurred vision. Improving follow-up ophthalmology consultation NSTEMI with history of coronary artery disease status post PCI of the branch vessel in January 2018. Recommended intervention of the diagonal branch if persistent symptoms. Currently pain-free. Continue aspirin, beta-leidy and nitrate. This is demand ischemia from uncontrolled hypertension per cardiology. Patient with mild stress-induced ischemia anterior laterally near the base of the heart. Per cardiology patient may proceed with femoropopliteal with moderate rest Bilateral lower extremity pain from PAD and diabetic neuropathy. Abnormal EDYTA and CTA. Consulted vascular surgery for R fempop bypass today consider trental/ Pletal continue aspirin, statin and Lyrica. Tobacco cessation COPD exacerbation. CTA negative for PE. Improving continue nebulization. Continue prednisone Diabetes mellitus. Uncontrolled secondary to steroids. A1c 15. Been having hypoglycemic episodes secondary to n.p.o. status and decreased oral intake. Will decrease Levemir to 50 units twice a day and adjust accordingly. Hypoglycemia protocol. DVT and PE continue Xarelto Discharge Planning: C vs rehab in 2-3 days when cleared by Dr Clark
[2018-06-05] MEDS: Morphine Inj 4 MG/ML Vial IV.PUSH PRN ×2 (12:26→22:25)
[2018-06-05] MEDS: Insulin Detemir Inj 1,000 UNIT/10 ML Vial SQ SCH (12:28)
[2018-06-05] MEDS: hydrALAZINE 25 MG Tablet PO SCH ×2 (12:30→17:40)
[2018-06-05] MEDS ORDERED: Regadenoson Inj 0.4 MG/5 ML Syringe IV.PUSH ONE (14:28)
[2018-06-05] MEDS ORDERED: Heparin - SQ 10,000 UNITS/ML Vial ONE (15:27)
[2018-06-05] MEDS ORDERED: Protamine Sulfate Inj 50 MG/5 ML Vial ONE (15:27)
--- NOTE | 2018-06-05 15:35 | NM ---
EXAM DATE: 06/05/2018 3:21 PM EDT AGE/SEX: 52 years / Female INDICATIONS:Angina. . History of coronary artery disease. CLINICAL DATA: This is the patient's subsequent encounter. Patient reports that signs and symptoms h ave been present for 3 days and indicates a pain score of 3/10. MEDICAL/SURGICAL HISTORY: Chronic obstructive pulmonary disease. Diabetes. Deep venous thromb osis. Hypertension and pulmonary embolism. . Cardiac catheterization. COMPARISON: 01/26/2018. DOSE: 8.7 mCi Tc 99m Myoview at rest 26.3 mCi [id number] at stress 0.4 mg Lexiscan STRESS SYMPTOMS: Shortness of breath and headache. EJECTION FRACTION: 41 % TECHNIQUE: The patient underwent pharmacologic stress with infusion of prescribed dose. Continuous ECG tracing was monitored during stress. Gated SPECT imaging was performed after stress and conventi onal SPECT imaging was performed at rest. The examination was performed on a SPECT/CT scanner, both attenuation and non-corrected datasets were reviewed. FINDINGS: Distribution: The maximum perfused segment at stress is in the inferior wall. Perfusion Study: Fixed perfusion deficits of the apex and inferolateral wall. A area of mild revers ible perfusion deficit seen anterolaterally. Gated Study: Generalized hypokinesia. The ejection fraction is calculated at 41%. RISK CATEGORY: Intermediate. CONCLUSION: 1. 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 2. Mild stress-induced ischemia anterior laterally near the base of the heart. 3. Global hypokinesia with abnormal ejection fraction, same as before. Electronically signed by: Mukund Stroud MD 06/05/2018 3:33 PM EDT
[2018-06-05] MEDS: Montelukast 10 MG Tablet PO SCH (17:40)
[2018-06-05] MEDS: Rivaroxaban 20 MG Tablet PO SCH (17:41)
--- NOTE | 2018-06-05 18:04 | P.PNVS ---
Subjective Subjective/Hospital Course: Patient seen full consult dictated She just had pulmonary angiogram to rule out pulmonary embolism so I do not want to load the patient with another dye bolus this close together but next week we do not do CTA with a runoff. Patient clearly has some drop off as far as the pressures are concerned in both legs and ABIs 0.6 on the right and 0.7 on the left signifying some degree of vascular disease and vascular occlusive changes probably consistent with diabetes and vascular occlusive disease between the groin and the knees, right more than left hand probably some degree of small vessel diabetic type vascular occlusive changes below the level of the knee. We will go ahead with CTA with runoff next week if see if we can fix something. At this point patient does not have acute or limb threatening ischemia. 06/02/2018 I reviewed the CTA with a runoff and this confirms the initial clinical impression Patient has worse disease on the right than on the left On the right patient has occlusion of SFA and some degree of inflow stenosis of distal external iliac and common femoral arteries with reconstitution of the popliteal artery for which patient will be taken to the operating room this week and undergo femoral-popliteal bypass with endarterectomy. On the left side patient has lesser degree of disease with near occlusion of the profunda and depending how patient does with the right side eventually she may go for profundoplasty on the left side in the next month or so. So in summary plan is to take patient for right femoral-popliteal bypass on Saturday I discussed with the patient at length and she agrees to the procedure 06/03/2018 Patient with ischemia of both legs right more than left Discussed with medicine attending and patient at this point is ready to undergo surgery She is scheduled, all things equal, for right femoral-popliteal bypass tomorrow 06/04/2018 Patient was scheduled for right femoral-popliteal bypass today however she ate twice once in the morning after she felt that her sugar was low and then second time in afternoon being unhappy about delaying surgery, so the surgery was canceled I discussed this with patient at length and at this point I told patient that compliance with care is paramount in an absence of the same I am not able to care adequately for the patient. She understands. Patient will undergo tomorrow morning stress test and if negative, in the afternoon the right femoral-popliteal bypass. If the stress test turns out to be positive and patient needs further cardiac interventions of course the peripheral vascular surgery will be canceled and postponed. 06/05/2018 Patient underwent today cardiac nuclear scan results of which are pending She is scheduled to undergo femoral-popliteal bypass today pending the scan results however since has developed bleeding from the lesions on her shoulder and back and there is a mention of impetigo as the source of the rash Impetiginous rash is quite contagious and if true patient needs to be isolated and clearly would not undergo femoral-popliteal bypass which is a purely elective procedure while this is unclear. Therefore surgery has been canceled until further advice by infectious disease Objective Vital Signs / I&O: Vital Signs 06/04/18 20:42 06/05/18 00:10 06/05/18 00:39 Temperature 98.5 F 98.2 F Pulse Rate 76 70 Respiratory Rate 18 18 18 Blood Pressure 214/96 H 184/86 H Pulse Oximetry 98 98 06/05/18 04:46 06/05/18 08:00 06/05/18 12:00 Temperature 97.9 F 99.1 F 98.3 F Pulse Rate 72 75 74 Respiratory Rate 16 18 Blood Pressure 179/80 H 195/93 H 164/77 H Pulse Oximetry 97 95 06/05/18 17:00 Temperature 97.1 F L Pulse Rate 98 H Respiratory Rate 20 Blood Pressure 130/72 Pulse Oximetry 95 Intake & Output 06/04/18 06/05/18 06/05/18 18:59 06:59 18:59 Weight 81.5 kg Other: # Voids 3 # Urine Diapers 3 Date of Last Bowel Movement 06/03/18 06/03/18 06/03/18 # Bowel Movements 0 Laboratory Results - last 24 hr 06/04/18 06/04/18 06/05/18 17:24 20:11 03:36 POC Glucose 264 H 207 H Hemoglobin A1c 15.0 H 06/05/18 06/05/18 07:51 11:29 POC Glucose 165 H 174 H Hemoglobin A1c Impressions Myocardial Perfusion Scan Nuc Med 06/05/18 00:00 CONCLUSION: 1. 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 2. Mild stress-induced ischemia anterior laterally near the base of the heart. 3. Global hypokinesia with abnormal ejection fraction, same as before.
[2018-06-06] MEDS: oxyCODONE/Acetaminophen 10/325 Tablet PO PRN ×2 (02:17→08:43)
[2018-06-06] MEDS: Phenytoin Sodium 100 MG Capsule PO SCH (08:42)
[2018-06-06] MEDS: Pregabalin 75 MG Capsule PO SCH (08:43)
[2018-06-06] MEDS: hydrALAZINE 25 MG Tablet PO SCH ×2 (08:43→12:51)
[2018-06-06] MEDS: Isosorbide Mononitrate 60 MG ER 24HR Tablet (Imdur) PO SCH (08:43)
[2018-06-06] MEDS: Metoprolol Tartrate 100 MG Tablet PO SCH (08:43)
[2018-06-06] MEDS: amLODIPine 10 MG Tablet PO SCH (08:43)
[2018-06-06] MEDS: Senna/Docusate Sodium 8.6/50 MG Tablet PO SCH (08:43)
[2018-06-06] MEDS: Budesonide-Formoterol 160/4.5 MCG 6 GM Inhaler INH SCH (08:48)
[2018-06-06] MEDS: Insulin Detemir Inj 1,000 UNIT/10 ML Vial SQ SCH (08:58)
[2018-06-06] MEDS: Insulin NovoLOG Aspart Correctional Sugar Inj SQ SCH ×2 (08:59→11:04)
[2018-06-06] MEDS: Morphine Inj 4 MG/ML Vial IV.PUSH PRN (11:22)
--- NOTE | 2018-06-06 11:41 | P.PNCA ---
Subjective Interval history: denies chest discomfort or pain or dyspnea Physical Exam Vital signs: Vital Signs 06/05/18 12:00 06/05/18 17:00 06/05/18 20:00 Temperature 98.3 F 97.1 F L 98.1 F Pulse Rate 74 98 H 76 Respiratory Rate 18 20 16 Blood Pressure 164/77 H 130/72 167/77 H Pulse Oximetry 95 95 98 06/06/18 00:00 06/06/18 04:00 06/06/18 08:00 Temperature 98.2 F 98.4 F 99.1 F Pulse Rate 75 75 75 Respiratory Rate 16 16 16 Blood Pressure 169/84 H 189/88 H 150/74 H Pulse Oximetry 99 100 100 06/06/18 09:47 Temperature Pulse Rate Respiratory Rate 20 Blood Pressure Pulse Oximetry Intake & Output 06/05/18 06/06/18 06/06/18 18:59 06:59 18:59 Intake Total 1500 / 1500 Balance 1500 / 1500 Weight 81.6 kg Intake: Oral 1500 / 1500 Other: # Voids 4 # Urine Diapers 3 Date of Last Bowel Movement 06/03/18 06/05/18 # Bowel Movements 0 Assessment and Plan - Assessment (1) NSTEMI (non-ST elevated myocardial infarction) Code(s): I21.4 - Non-ST elevation (NSTEMI) myocardial infarction Status: Acute (2) Pulmonary embolism Code(s): I26.99 - Other pulmonary embolism without acute cor pulmonale Status : Acute (3) HTN (hypertension) Code(s): I10 - Essential (primary) hypertension Status: Acute (4) Tobacco abuse Code(s): Z72.0 - Tobacco use Status: Acute - Plan 1.) HTN - trop elevation probably secondary to htn, assymptomatic, patient strongly advised to stop smoking 2.) Pre-op - moderate risk mps, moderate risk for nocardiac surgery
[2018-06-06] MEDS ORDERED: Pentoxifylline 400 MG Controlled Release Tablet PO SCH (14:30)
--- NOTE | 2018-06-06 14:31 | P.DCO ---
- Physical Therapy Order: Evaluate and treat, Improve ambulation, Strength and gait training - Home Health Nursing Order: Signs/symptoms of disease process, Diabetic education, Medication education-adverse effect, Wound care and dressing changes, Nursing assessment with vital signs - Certification I have seen patient Ashanti Stern on 06/06/18. My clinical findings support the need for the requested home health care services because: Medication compliance is questionable I certify that my clinical findings support that this patient is homebound because: Need for psychosocial assistance
--- NOTE | 2018-06-06 14:52 | P.DS ---
Date of admission: 05/30/18 21:28 Primary care physician: Jossy Bridges Brief History from admission: This is a 52 yo with hx of chronic pain, seizure disorder on Dilantin, PE/DVT on Xarelto, COPD, diabetes mellitus with neuropathy, hypertension and coronary artery disease status post PCI. Family history of coronary artery disease. She presents to the emergency room because she was diagnosed with bilateral lower extremity DVT 2 days ago at [facility]. She has been complaining of excruciating shocking pain in the bilateral lower extremities all the way to her groin and numbing discomfort of bilateral feet worse with ambulation. She has chronic neck and lower back pain was on morphine and oxycodone but ran out for 3 weeks now. Denies numbness or incontinence. Doppler sonogram in the ED was negative for DVT. She also complained of dyspnea on exertion also worse when she is sleeping associated with mild wheezing and dry cough for 2 days. CTA negative for PE. Patient also reports of constant left-sided headache scale of 6 out of 10 no change from previous associated with worsening blurred vision for 2 weeks history of cataract. Denies dizziness. BP has been severely elevated in the emergency department despite IV labetalol. She also has elevated troponin 0.08 denies anginal symptoms however ED staff concern of possible anginal equivalent. EKG tracing interpreted by me shows sinus rhythm with left atrial enlargement, Q waves in the inferior leads and nonspecific ST- T changes no significant change from previous. Claims to be compliant with medications. All other systems reviewed negative DS: Diagnosis - Discharge Diagnosis (1) NSTEMI (non-ST elevated myocardial infarction) Status: Acute (2) HTN (hypertension) Status: Acute DS: Medications - Discharge Medications Prescriptions: hydralazine 25 mg PO TID #90 tab isosorbide mononitrate 120 mg PO DAILY #120 tab losartan 100 mg PO DAILY #60 tab mupirocin 1 applicatio TOPICAL BID #1 g oxycodone-acetaminophen 1 tab PO Q6H PRN #12 tab PRN Reason: Acute Pain pentoxifylline 400 mg PO BID #60 tab DS: Summary Hospital Course: This is a 52 yo with hx of chronic pain, seizure disorder on Dilantin, PE/DVT on Xarelto, COPD, diabetes mellitus with neuropathy, hypertension and coronary artery disease status post PCI. She presents to the emergency room because she was diagnosed with bilateral lower extremity DVT 2 days ago at [facility]. She has been complaining of excruciating shocking pain bilateral lower extremities all the way to her groin and numbing discomfort of bilateral feet worse with ambulation. She has chronic neck and lower back pain was on morphine and oxycodone but ran out for 3 weeks now. Denies numbness or incontinence. Doppler sonogram in the ED was negative for DVT. Hypertensive urgency. Improved added hydralazine continue losartan, amlodipine , Imdur and Lopressor. D Blurred vision. Improving follow-up ophthalmology consultation NSTEMI with history of coronary artery disease status post PCI of the branch vessel in January 2018. Recommended intervention of the diagonal branch if persistent symptoms. Currently pain-free. Continue aspirin, beta-leidy and nitrate. This is demand ischemia from uncontrolled hypertension per cardiology. Patient with mild stress-induced ischemia anterior laterally near the base of the heart. Per cardiology patient may proceed with femoropopliteal with moderate rest Bilateral lower extremity pain from PAD and diabetic neuropathy. Abnormal EDYTA and CTA. Consulted vascular surgery for R fempop bypass postponed 2/2 possible impetigo. Per Vascular surgery, procedure can be done at a later date when lesions are healed. Start Trental continue aspirin, statin and Lyrica. Tobacco cessation. Counselled re narc EForcse queried COPD exacerbation. CTA negative for PE. Improving continue nebulization. S/p prednisone Diabetes mellitus. Uncontrolled secondary to steroids. A1c 15. Been having hypoglycemic episodes secondary to n.p.o. status and decreased oral intake. Will decrease Levemir to 50 units twice a day and adjust accordingly. Hypoglycemia protocol. Dermatitis, chronic. Looks like neurodermatitis with fresh wounds. No infection. Bactroban ointment. Wd care DVT and PE continue Xarelto - Time Spent with Patient Total time spent providing and/or coordinating discharge services: Greater than 30 minutes - Quality: VTE Deep Vein Thrombosis/Pulmonary Embolism Present on Admission: No Exam Vital signs: Vital Signs 06/05/18 17:00 06/05/18 20:00 06/06/18 00:00 Temperature 97.1 F L 98.1 F 98.2 F Pulse Rate 98 H 76 75 Respiratory Rate 20 16 16 Blood Pressure 130/72 167/77 H 169/84 H Pulse Oximetry 95 98 99 06/06/18 04:00 06/06/18 08:00 06/06/18 09:47 Temperature 98.4 F 99.1 F Pulse Rate 75 75 Respiratory Rate 16 16 20 Blood Pressure 189/88 H 150/74 H Pulse Oximetry 100 100 06/06/18 11:41 06/06/18 12:00 Temperature 98.3 F Pulse Rate 78 Respiratory Rate 18 16 Blood Pressure 140/74 Pulse Oximetry 99 Intake & Output 06/05/18 06/06/18 06/06/18 18:59 06:59 18:59 Intake Total 1500 / 1500 Balance 1500 / 1500 Weight 81.6 kg Intake: Oral 1500 / 1500 Other: # Voids 4 # Urine Diapers 3 Date of Last Bowel Movement 06/03/18 06/05/18 # Bowel Movements 0 Narrative: GENERAL: Well-developed and well-nourished in no distress SKIN: Warm and dry. Dark spots upper back with open wounds from pt's scratching no evidence of infection CARDIOVASCULAR: Regular rate and rhythm. RESPIRATORY: No accessory muscle use. Clear to auscultation. Breath sounds equal bilaterally. GASTROINTESTINAL: Abdomen soft, non-tender, nondistended. MUSCULOSKELETAL: Extremities without clubbing, cyanosis, or edema. No obvious deformities. Neurovascularly intact NEUROLOGICAL: Awake and alert. No obvious cranial nerve deficits. Motor grossly within normal limits. Five out of 5 muscle strength in the arms and legs. Normal speech. Results Procedures completed during hospitalization: none Labs on day of discharge: Labs from last 24 hours 06/06/18 06/06/18 06/05/18 11:04 07:31 22:33 POC Glucose 144 H 211 H 296 H 06/05/18 17:44 POC Glucose 142 H - Impressions ITS Impressions Extremity Arterial Study 05/30/18 00:00 CONCLUSION: 1. The values are consistent with mild ischemia on the left and mild to moderate on the right. Chest CTA 05/30/18 13:29 CONCLUSION: 1. No CT evidence for pulmonary artery embolism. 2. Mild paraseptal emphysema at the lung apices. 3. Coronary artery stenting. Venous Doppler Study 05/30/18 13:29 CONCLUSION: 1. No DVT identified. Aorta w/Runoff CTA 06/02/18 00:00 CONCLUSION: 1. Despite atherosclerotic calcification, the inflow is adequate down to the aortic bifurcation. 2. On the right, sequential 50-60% stenosis in the mid right external iliac and junction of the external iliac and common femoral. SFA occludes at its origin with collateral reconstitution of the distal above-knee popliteal. Popliteal is patent and the trifurcation with three-vessel runoff. 3. On the left, high-grade ostial stenosis of one of the major branch vessels of the profunda. Otherwise, the outflow is adequate with three-vessel runoff and no significant stenosis in the SFA or popliteal. 4. Small hiatal hernia. Myocardial Perfusion Scan Nuc Med 06/05/18 00:00 CONCLUSION: 1. 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 2. Mild stress-induced ischemia anterior laterally near the base of the heart. 3. Global hypokinesia with abnormal ejection fraction, same as before. Discharge Plan - Discharge Disposition Patient Disposition: W/Home Health Service - Discharge Condition Condition: Stable - Discharge Order Discharge Orders: Discharge Order (Routine); Ordered 06/06/18 Ordered By: Audie Leong - Physicians Team Primary Care Provider: Jossy Bridges Attending Provider: Audie Leong Other Providers: Luda Paniagua MD ; Sanchez Martin MD ; [employer] ; Bee Kenney MD
--- NOTE | 2018-06-06 17:04 | P.PNWCN ---
Wound Care Nurse Consult Description: Patient seen earlier for wound care consult for lesions on upper back Communicated with: ZAHEER Alvarado and Doctor Leong Recommendation: 1.Please cleanse wounds to upper back with normal saline or wound wash and pat dry. 2.Apply Xeroform gauze in single layer just over wound beds and not on intact skin. 3. Cover with dry cover dressing and change every other day. Wound/Pressure Injury - Patient Status Premedicated for Pain Prior to Dressing Change: No - Wound Upper Back Wound Assessment: Ongoing Wound Type: Abrasion (5 areas of excoration or scratch metzger that are partial thickness) Is This a Chronic Wound: Yes Requested from Provider a Wound Care Consult: Yes Wound Bed Appearance: Meggett Surrounding Tissue Appearance: Meggett (scar tissue) Surrounding Tissue Temperature: Warm Drainage Description: Sanguinous Drainage Amount: None Drainage Odor: No Odor Dressing Status: Changed Cleansing Solution: Saline Primary Dressing: Xerofrom Cover Dressing: bordered gauze Wound Dressing Change Date: 06/06/18 - Additional Information Patient seen earlier on for evaluation of wound care consult fro lesions on upper back. Patient is alert and oriented Removed dry cover dressings in place to reveal five open partial thickness wounds that present as excoriation or scratch metzger. Largest of the open wound measures ~3cm x ~0.4cm x ~<0.1cm Patient states, " I have been getting itchy on my back and a scratch and scratch and get sores that heal and then come back" Patient also noted with dry intact scabs on back. Wounds were cleansed with normal saline and patted dry. Applied Xeroform over open wounds and secured in place with bordered gauze dressing.Patient tolerated well. Incision - Patient Status Premedicated for Pain Prior to Dressing Change: No
== END 2018-06-06 15:33 | disposition home health service (06) ==
LOC: NEDA 13:01 → NEPD 13:01 → HIMC 20:50 → N07 06-01 22:26
PROVIDERS: ADMIT Internal Medicine; ATTEND Internal Medicine